=== PATIENT | female | born 1965 | race Caucasian/White ===

== ENCOUNTER → 2018-03-21 11:41 | Outpatient (CLI) | payer OTHER, SELFPAY ==
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
== END ==
PROVIDERS: PCP Internal Medicine; Visit Provider Internal Medicine
DX: M25.562 Pain in left knee (principal); W19.XXXA Unspecified fall, initial encounter
CPT/HCPCS: 73562

== ENCOUNTER → 2018-04-04 16:08 | Outpatient (CLI) | payer OTHER, SELFPAY ==
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
== END ==
PROVIDERS: PCP Internal Medicine; Visit Provider Internal Medicine
DX: R11.2 Nausea with vomiting, unspecified (principal); R51 Headache; R42 Dizziness and giddiness
CPT/HCPCS: 70450

== ENCOUNTER → 2019-03-26 09:48 | Outpatient (CLI) | payer OTHER, SELFPAY ==
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
--- NOTE | 2019-03-26 09:52 | XR_ITS ---
XR foot wt bearing RT 3V HISTORY: ITS.REASON: pain ORDERING PHYSICIAN: Juliana Vergara DPM PATIENT AGE: 54 years COMPARISON: None FINDINGS: No fracture or dislocation. No lytic or blastic change. There is normal mineralization.. The joint spaces are well-preserved. No significant degenerative/arthritic changes. No erosive changes evident. IMPRESSION: Negative, no acute finding
== END ==
PROVIDERS: PCP Internal Medicine; Visit Provider Podiatrist
DX: M79.672 Pain in left foot (principal); M79.671 Pain in right foot; M67.471 Ganglion, right ankle and foot
CPT/HCPCS: 73630; 87070; 87205

== ENCOUNTER → 2019-05-04 14:45 | Outpatient (CLI) | payer OTHER, SELFPAY ==
[2019-05-04 15:04] LABS: Basophils % 0.2 % (0.1-2.0); Eosinophils % 0.1 % (0.1-12.0); Hematocrit 45.8 % (37.0-47.0); Hemoglobin 14.6 g/dL (12.2-16.2); Lymphocytes # 1.6 K/mm3 (0.7-4.5); Lymphocytes % 12.1 % (10-50); Mean Corpuscular HGB Conc 31.8 g/dL (31.8-35.4); Mean Corpuscular Hemoglobin 27.4 pg (27.0-31.2); Mean Corpuscular Volume 86.3 fl (81-99); Mean Platelet Volume 7.7 fl (7.4-10.4); Monocytes # 0.5 K/mm3 (0.1-1.0); Monocytes % 4.1 % (1.7-9.3); Neutrophils # 10.9 K/mm3 (1.8-7.8); Neutrophils % 83.6 % (37.0-80.0); Platelet Count 345 K/mm3 (142-424); Red Cell Distribution Width 14.3 % (11.5-17.5); White Blood Count 13.1 K/mm3 (4.8-10.8)
[2019-05-04 15:06] LABS: Anion Gap 16.4 mEq/L (5-15); Blood Urea Nitrogen 17 mg/dL (7-18); Calcium 9.6 mg/dL (8.5-10.1); Carbon Dioxide 26 mmol/L (21.0-32.0); Chloride 102 mmol/L (98-107); Creatinine,Serum 1.16 mg/dL (0.55-1.02); Estimated Glomerular Filt Rate 48 ml/min (>60); GFR (African American) 58 ML/MIN (>60); Glucose 127 mg/dL (74-106); Potassium 3.4 mmoL/L (3.5-5.1); Sodium 141 mmol/L (136-145)
== END ==
PROVIDERS: Visit Provider Internal Medicine
DX: R19.7 Diarrhea, unspecified (principal); R11.2 Nausea with vomiting, unspecified
CPT/HCPCS: 36415; 80048; 85025

== ENCOUNTER 2019-06-22 15:11 | Outpatient (CLI) | payer OTHER, SELFPAY ==
[2019-06-22 15:22] VITALS: BMI 29.3
[2019-06-22 15:50] VITALS: BP 118/75; PULSE 85; RESP 18; O2SAT 97
[2019-06-22 15:59] LABS: Basophils % 0.2 % (0.1-2.0); Eosinophils # 0.1 K/mm3 (0.0-0.4); Eosinophils % 0.9 % (0.1-12.0); Hematocrit 45.2 % (37.0-47.0); Hemoglobin 14.9 g/dL (12.2-16.2); Lymphocytes # 1.5 K/mm3 (0.7-4.5); Lymphocytes % 12.3 % (10-50); Mean Corpuscular HGB Conc 32.9 g/dL (31.8-35.4); Mean Corpuscular Hemoglobin 27.9 pg (27.0-31.2); Mean Corpuscular Volume 84.7 fl (81-99); Mean Platelet Volume 7.7 fl (7.4-10.4); Monocytes # 0.7 K/mm3 (0.1-1.0); Monocytes % 5.7 % (1.7-9.3); Neutrophils # 9.5 K/mm3 (1.8-7.8); Neutrophils % 80.9 % (37.0-80.0); Platelet Count 280 K/mm3 (142-424); Red Blood Count 5.34 M/mm3 (4.20-5.40); White Blood Count 11.8 K/mm3 (4.8-10.8)
[2019-06-22 16:13] LABS: Alanine Aminotransferase 54 U/L (12-78); Albumin Level 3.6 gm/dL (3.4-5.0); Albumin/Globulin Ratio 0.8 (1.1-1.8); Alkaline Phosphatase 99 U/L (46-116); Anion Gap 17.4 mEq/L (5-15); Aspartate Amino Transferase 30 U/L (15-37); Bilirubin,Total 0.5 mg/dL (0.2-1.0); Blood Urea Nitrogen 13 mg/dL (7-18); Calcium 9.8 mg/dL (8.5-10.1); Carbon Dioxide 23 mmol/L (21.0-32.0); Chloride 103 mmol/L (98-107); Creatinine Clearance Estimated 66 mL/min (50-200); Creatinine,Serum 1.17 mg/dL (0.55-1.02); Estimated Glomerular Filt Rate 48 ml/min (>60); GFR (African American) 58 ML/MIN (>60); Globulin 4.6 gm/dl (1.3-3.2); Glucose 114 mg/dL (74-106); Potassium 3.4 mmoL/L (3.5-5.1); Sodium 140 mmol/L (136-145); Total Protein,Serum 8.2 gm/dL (6.4-8.2)
[2019-06-22 16:20] VITALS: BP 125/76; PULSE 87; RESP 18
[2019-06-22 16:50] VITALS: BP 111/69; PULSE 81; RESP 18
[2019-06-22 20:00] VITALS: BP 101/67; PULSE 73; RESP 20; TEMP 36.8; O2SAT 97
== END 2019-06-22 20:05 | disposition home or self-care (01) ==
PROVIDERS: PCP Internal Medicine; Visit Provider Internal Medicine
DX: K52.9 Noninfective gastroenteritis and colitis, unspecified (principal); E86.0 Dehydration; G43.909 Migraine, unspecified, not intractable, without status migrainosus
CPT/HCPCS: 80053; 85025; 96360; 96361; 96365; 96367; 96374; 96375; J2405

== ENCOUNTER 2020-03-25 11:21 | Outpatient (CLI) | payer OTHER, SELFPAY ==
[2020-03-25 11:21] VITALS: BMI 30.2
[2020-03-25 11:33] LABS: Basophils % 0.2 % (0.1-2.0); Eosinophils # 0.2 K/mm3 (0.0-0.4); Eosinophils % 2.5 % (0.1-12.0); Hematocrit 37.1 % (37.0-47.0); Hemoglobin 11.6 g/dL (12.2-16.2); Lymphocytes # 1.8 K/mm3 (0.7-4.5); Lymphocytes % 23.4 % (10-50); Mean Corpuscular HGB Conc 31.3 g/dL (31.8-35.4); Mean Corpuscular Hemoglobin 26.7 pg (27.0-31.2); Mean Corpuscular Volume 85.1 fl (81-99); Mean Platelet Volume 7.1 fl (7.4-10.4); Monocytes # 0.5 K/mm3 (0.1-1.0); Monocytes % 6.1 % (1.7-9.3); Neutrophils # 5.3 K/mm3 (1.8-7.8); Neutrophils % 67.8 % (37.0-80.0); Platelet Count 268 K/mm3 (142-424); Red Blood Count 4.36 M/mm3 (4.20-5.40); Red Cell Distribution Width 14.9 % (11.5-17.5); White Blood Count 7.8 K/mm3 (4.8-10.8)
[2020-03-25 12:30] VITALS: BP 102/58; PULSE 68; RESP 20; TEMP 36.9; O2SAT 95
[2020-03-25 13:04] LABS: Alanine Aminotransferase 16 U/L (12-78); Albumin Level 4.1 g/dl (3.5-5.0); Albumin/Globulin Ratio 1.6 (1.1-1.8); Alkaline Phosphatase 88 U/L (38-126); Anion Gap 9.6 mEq/L (5-15); Aspartate Amino Transferase 28 U/L (14-36); Bilirubin,Total 0.1 mg/dl (0.2-1.3); Blood Urea Nitrogen 13 mg/dl (7-17); Carbon Dioxide 26 mmol/L (22.0-30.0); Chloride 106 mmol/L (98-107); Cholesterol 148 mg/dl (140-200); Creatinine Clearance Estimated 104 mL/min (50-200); Estimated Glomerular Filt Rate 74 ml/min (>60); GFR (African American) 89 ML/MIN (>60); Globulin 2.6 g/dL (1.3-3.2); Glucose 101 mg/dl (74-100); HDL Cholesterol 73 mg/dl (40-60); Potassium 3.6 mmoL/L (3.5-5.1); Sodium 138 mmol/L (136-145); Total Protein,Serum 6.7 g/dl (6.3-8.2); Triglycerides 98 mg/dl (30-150); VLDL Cholesterol 20 mg/dL (0-40)
[2020-03-25 13:14] LABS: Direct LDL Cholesterol 74.33 mg/dL (100-129)
[2020-03-25 13:35] VITALS: BP 120/62; PULSE 68; RESP 20; TEMP 36.9; O2SAT 95
[2020-03-25 13:36] LABS: Thyroid Stimulating Hormone 0.18 uIU/mL (0.465-4.68)
[2020-03-25 14:00] VITALS: BP 102/74; PULSE 68; RESP 20; TEMP 36.9; O2SAT 95
== END 2020-03-25 14:15 | disposition home or self-care (01) ==
LOC: LAB 11:22 → INF 11:24
PROVIDERS: PCP Internal Medicine; Visit Provider Internal Medicine
DX: E86.0 Dehydration (principal); R42 Dizziness and giddiness; E78.5 Hyperlipidemia, unspecified; E03.9 Hypothyroidism, unspecified; I95.1 Orthostatic hypotension
CPT/HCPCS: 80053; 80061; 84443; 85025; 96360; 96361; 96375; J2405

== ENCOUNTER 2020-04-23 10:08 | Emergency (ER) | payer OTHER, SELFPAY ==
[2020-04-23 10:16] VITALS: BP 122/82; PULSE 81; RESP 18; TEMP 37; O2SAT 98
[2020-04-23 10:23] VITALS: BMI 32.4
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
--- NOTE | 2020-04-23 10:32 | PC.NURSE ---
ER viewed pt most recent labs from March, stated pt okay to go on to CT with IV contrast based on recent labs. Rad aware and taking pt to radiology at this time
[2020-04-23 10:43] LABS: Basophils % 0.2 % (0.1-2.0); Eosinophils # 0.1 K/mm3 (0.0-0.4); Eosinophils % 1.1 % (0.1-12.0); Hematocrit 39.1 % (37.0-47.0); Hemoglobin 13.1 g/dL (12.2-16.2); Lymphocytes # 1.2 K/mm3 (0.7-4.5); Lymphocytes % 10.5 % (10-50); Mean Corpuscular HGB Conc 33.4 g/dL (31.8-35.4); Mean Corpuscular Hemoglobin 29.1 pg (27.0-31.2); Mean Platelet Volume 7.5 fl (7.4-10.4); Monocytes # 0.4 K/mm3 (0.1-1.0); Monocytes % 3.9 % (1.7-9.3); Neutrophils # 9.4 K/mm3 (1.8-7.8); Neutrophils % 84.3 % (37.0-80.0); Platelet Count 214 K/mm3 (142-424); Red Cell Distribution Width 15.3 % (11.5-17.5); White Blood Count 11.1 K/mm3 (4.8-10.8)
[2020-04-23 10:53] LABS: Chloride 108 mmol/L (98-107); Sodium 141 mmol/L (136-145)
[2020-04-23 10:56] LABS: Blood Urea Nitrogen 17 mg/dl (7-17); Creatinine Clearance Estimated 108 mL/min (50-200); Estimated Glomerular Filt Rate 74 ml/min (>60); GFR (African American) 89 ML/MIN (>60)
[2020-04-23 10:57] LABS: Calcium 9.2 mg/dl (8.4-10.2); Carbon Dioxide 26 mmol/L (22.0-30.0); Glucose 114 mg/dl (74-100); Lipase 46 U/L (23-300)
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
[2020-04-23 11:11] VITALS: BP 111/69; PULSE 79; RESP 18; O2SAT 99
[2020-04-23 11:30] VITALS: BP 100/63; PULSE 84; RESP 20; O2SAT 99
[2020-04-23 12:00] VITALS: BP 114/67; PULSE 85; RESP 20; O2SAT 98
[2020-04-23 13:22] VITALS: BP 124/80; PULSE 69; RESP 18; TEMP 37; O2SAT 98
== END 2020-04-23 13:23 | disposition home or self-care (01) ==
PROVIDERS: Emergency Provider Emergency Medicine; PCP Internal Medicine
DX: S32.019A Unspecified fracture of first lumbar vertebra, initial encounter for closed fracture (principal); S06.0X9A Concussion with loss of consciousness of unspecified duration, initial encounter; S16.1XXA Strain of muscle, fascia and tendon at neck level, initial encounter; S20.219A Contusion of unspecified front wall of thorax, initial encounter; S30.1XXA Contusion of abdominal wall, initial encounter; V48.0XXA Car driver injured in noncollision transport accident in nontraffic accident, initial encounter; Y92.488 Other paved roadways as the place of occurrence of the external cause; K21.9 Gastro-esophageal reflux disease without esophagitis; E78.5 Hyperlipidemia, unspecified; I10 Essential (primary) hypertension; G43.709 Chronic migraine without aura, not intractable, without status migrainosus; F33.1 Major depressive disorder, recurrent, moderate; Z79.899 Other long term (current) drug therapy; Z88.0 Allergy status to penicillin; Z88.8 Allergy status to other drugs, medicaments and biological substances
CPT/HCPCS: 70450; 71045; 71260; 72125; 72131; 72170; 74177; 80048; 83690; 85025; 96374; 96375; 99282; J2405; Q9967

== ENCOUNTER → 2020-04-28 10:58 | Outpatient (POV) | payer OTHER, SELFPAY ==
[2020-04-28 11:17] VITALS: BP 108/66; PULSE 69; RESP 18; O2SAT 98; BMI 32.3
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
== END ==
PROVIDERS: PCP Internal Medicine; Visit Provider Clinical Nurse Specialist Family Health
DX: S32.009A Unspecified fracture of unspecified lumbar vertebra, initial encounter for closed fracture (principal)
CPT/HCPCS: 99202

== ENCOUNTER 2020-05-02 14:15 | Day surgery (SDC) | payer OTHER, SELFPAY ==
[2020-05-02 15:08] VITALS: BP 118/68; PULSE 83; RESP 20; TEMP 36.4; O2SAT 98; BMI 32.3
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
[2020-05-02 15:30] VITALS: BP 120/72; PULSE 68; RESP 20; O2SAT 100
[2020-05-02 15:32] VITALS: BP 145/89; BP 152/89; PULSE 85; PULSE 89; RESP 18; O2SAT 98; O2SAT 99
== END 2020-05-02 15:30 | disposition home or self-care (01) ==
LOC: SC.PAINP 14:17
PROVIDERS: PCP Internal Medicine; Visit Provider Anesthesiology
DX: M51.16 Intervertebral disc disorders with radiculopathy, lumbar region (principal); S32.009A Unspecified fracture of unspecified lumbar vertebra, initial encounter for closed fracture; I10 Essential (primary) hypertension; K21.9 Gastro-esophageal reflux disease without esophagitis; E03.9 Hypothyroidism, unspecified; Z90.89 Acquired absence of other organs; Z90.49 Acquired absence of other specified parts of digestive tract; G43.909 Migraine, unspecified, not intractable, without status migrainosus; Z88.0 Allergy status to penicillin; Z88.8 Allergy status to other drugs, medicaments and biological substances; Z79.899 Other long term (current) drug therapy
CPT/HCPCS: 62323; J1040; Q9966

== ENCOUNTER → 2020-05-26 11:30 | Outpatient (POV) | payer OTHER, SELFPAY ==
[2020-05-26 12:52] VITALS: BP 133/85; PULSE 75; RESP 18; O2SAT 98; BMI 29.0
--- NOTE | 2020-05-26 14:43 | HMH.PAINSOAP ---
[facility] Pain Management SOAP Note Subjective:: Patient is a 55-year-old white female who presents today for follow-up. She has been treated for low back pain with lumbar radiculopathy symptoms as well as compression fractures at her lumbar spine. Patient recently underwent an L1-L2 lumbar epidural steroid injection. She says that she got 2 weeks of relief after the injection up to 90%. She does rate her pain a 6 out of 10 today. She would like to proceed with a repeat injection to see if she gets further relief. Patient says that most of her pain is in her mid to low back and does not radiate into her legs. She does say wearing a brace does give her support and relief in her back area. She has tried and failed physical therapy. She is also continues with a home stretching program and anti-inflammatories. Review of Systems General: No recent weight changes, no fever, no sleep disturbances Respiratory: No cough, no shortness of air, no recurring pulmonary infections Cardiovascular/peripheral vascular: No chest pain, no palpitations, no edema, no shortness of breath Gastrointestinal: No new onset incontinence, normal bowel movements reported Genitourinary: No new onset incontinence Musculoskeletal: Mid to low back pain Psychiatric: Normal mood/affect Neurological: [Denies weakness in extremities], [denies balance issues] Objective:: Physical exam General: Alert and oriented x3, no acute distress, pleasant and cooperative, [on room air] Lungs: Respirations even and unlabored, symmetrical chest expansion Eyes: PERRL Musculoskeletal: Flexion and extension of thoracic and lumbar spine somewhat guarded secondary to pain, deep tendon reflexes normal, strength in upper and lower extremities [5/5], [abnormal gait noted] Neurological: Speech clear, 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 She is not on any anticoagulation therapy. We will see her back in the clinic after her injection to reassess her symptoms. She and I did discuss probable series of injections if she does get relief after the next injection so that she can get longer-term relief. She will continue with anti-inflammatories and a home stretching program. Patient has been instructed to contact clinic if she has any concerns before next appointment. The patient and I specifically discussed risk factors for COVID19. These risks include, but are not limited to age greater than 60, heart or lung disease, diabetes, immunosuppression, and travel. We also discussed NSAIDs may worsen COVID19 infection or symptoms. Patient should not use NSAIDs to treat COVID19 signs or symptoms. Patient was also informed that any type of corticosteroid of any form (oral or injection) will decrease the patient's immune system response and may increase the likelihood of COVID19 infection and symptoms[address] Dr. Claros has reviewed this note and agrees with this plan of care. This note was dictated using voice recognition software and make contain errors or omissions. [facility] History I have reviewed the patient's past medical history: Yes Medical History: Reports:: Depression, Gastroesophageal Reflux Disease(GERD), Hyperlipidemia, Hypertension, Migraine Denies:: Cancer, Chronic Obstructive Pulmonary Disease (COPD), Diabetes Mellitus Type 1, Diabetes Mellitus Type 2, MRSA, Seizures *Have you ever received a pneumonia vaccine?: Yes *Have you received a flu vaccine this season?: Yes Other Medical History: Reports: Arthritis, Hypothyroidism, Sinus Problems, Thyroid Disease Laterality Cases: Bilateral: Tonsillectomy Other Surgeries: Yes: Appendectomy, , Tubal Ligation Amputation: No Fractures: Yes (Left Arm ) - *Social History Smoking Status: Never smoker Alcohol Intake: never Alcohol Intake Freq
== END ==
PROVIDERS: PCP Internal Medicine; Visit Provider Clinical Nurse Specialist Family Health
DX: M51.16 Intervertebral disc disorders with radiculopathy, lumbar region (principal); S32.009A Unspecified fracture of unspecified lumbar vertebra, initial encounter for closed fracture
CPT/HCPCS: 99212

== ENCOUNTER 2020-06-06 11:21 | Day surgery (SDC) | payer OTHER, SELFPAY ==
[2020-06-06 11:32] VITALS: BP 116/75; PULSE 61; RESP 18; TEMP 36.2; O2SAT 99; BMI 29.9
[2020-06-06 11:49] VITALS: BP 129/78; PULSE 72; RESP 18; TEMP 36.6; O2SAT 98
[2020-06-06 11:52] VITALS: BP 130/85; PULSE 74; RESP 18; O2SAT 98
--- NOTE | 2020-06-06 11:56 | HMH.PMPROC ---
- Procedure Date: 06/06/20 Time: 11:56 Anesthesiologist:: Rohan Claros MD Complications:: None Pre-procedure Diagnosis:: Degenerative disc disease of lumbar spine with lumbar radiculopathy symptoms and previous compression fractures of the lumbar spine Post-procedure Diagnosis:: Same Indications for Procedure:: The patient is a pleasant 55-year-old white female who we are treating for low back pain with previous compression fractures and lumbar radiculopathy symptoms. She did very well with her last lumbar epidural steroid injection at L1-L2. Wearing a brace does help. We will do a repeat lumbar pleural steroid injection today to help with her pain symptoms. She previously was 90% better after last lumbar epidural steroid injection for a few weeks. Procedure Details:: Lumbar epidural steroid injection under fluoroscopy Informed consent was obtained and the risk and benefits of the procedure was explained to the patient. The patient was taken to the procedure room. The patient was placed prone on the procedure table. The patient was prepped and draped in sterile fashion. C-arm fluoroscopy was used to view the lumbar spine. Skin and subcutaneous tissues were anesthetized using lidocaine. I placed an 18-gauge epidural needle and advanced into the L1-L2 interspace using fluoroscopic guidance and [id number] to air. After confirmation of needle placement in the epidural space with dye I injected 2 mL of lidocaine 1.5% with Depo-Medrol 80 mg. Patient tolerated the procedure well with no complications. Plan and Disposition:: We will follow-up with her in 2 weeks. Will reevaluate symptoms at that time.
[2020-06-06 11:59] VITALS: BP 128/74; PULSE 64; RESP 18; O2SAT 99
== END 2020-06-06 12:00 | disposition home or self-care (01) ==
LOC: SC.PAINP 11:22
PROVIDERS: PCP Internal Medicine; Visit Provider Anesthesiology
DX: M51.16 Intervertebral disc disorders with radiculopathy, lumbar region (principal); S32.009A Unspecified fracture of unspecified lumbar vertebra, initial encounter for closed fracture; I10 Essential (primary) hypertension; V89.2XXA Person injured in unspecified motor-vehicle accident, traffic, initial encounter; G43.909 Migraine, unspecified, not intractable, without status migrainosus; E78.5 Hyperlipidemia, unspecified; E07.9 Disorder of thyroid, unspecified; Z90.89 Acquired absence of other organs; Z90.49 Acquired absence of other specified parts of digestive tract; Z88.0 Allergy status to penicillin; Z88.8 Allergy status to other drugs, medicaments and biological substances; Z79.899 Other long term (current) drug therapy
CPT/HCPCS: 62323; J1040; Q9966

== ENCOUNTER 2023-12-28 22:24 | Outpatient (CLI) | payer MEDICARE, SELFPAY ==
[2023-12-28 18:52] LABS: Basophils % 0.2 % (0.1-2.0); Eosinophils # 0.1 K/mm3 (0.0-0.4); Eosinophils % 1.2 % (0.1-12.0); Lymphocytes # 1.6 K/mm3 (0.7-4.5); Lymphocytes % 15.5 % (10-50); Mean Corpuscular HGB Conc 30.9 g/dL (31.8-35.4); Mean Corpuscular Hemoglobin 27.5 pg (27.0-31.2); Mean Corpuscular Volume 89.2 fl (81-99); Mean Platelet Volume 9.4 fl (7.4-10.4); Monocytes # 0.6 K/mm3 (0.1-1.0); Monocytes % 5.4 % (1.7-9.3); Neutrophils # 7.9 K/mm3 (1.8-7.8); Neutrophils % 77.7 % (37.0-80.0); Platelet Count 280 K/mm3 (142-424); Red Blood Count 4.71 M/mm3 (4.20-5.40); Red Cell Distribution Width 16.9 % (11.5-17.5); White Blood Count 10.2 K/mm3 (4.8-10.8)
[2023-12-28 19:05] LABS: Chloride 105 mmol/L (98-107); Sodium 139 mmol/L (136-145)
[2023-12-28 19:08] LABS: Alanine Aminotransferase 26 U/L (12-78); Albumin Level 4.4 g/dl (3.5-5.0); Alkaline Phosphatase 108 U/L (38-126); Aspartate Amino Transferase 35 U/L (14-36); Bilirubin,Total 0.5 mg/dl (0.2-1.3); Blood Urea Nitrogen 18 mg/dl (7-17); Carbon Dioxide 27 mmol/L (22.0-30.0); Cholesterol 258 mg/dl (140-200); Estimated Glomerular Filt Rate 51 ml/min (>60); GFR (African American) 61 ML/MIN (>60); Triglycerides 159 mg/dl (30-150); VLDL Cholesterol 32 mg/dL (0-40)
[2023-12-28 19:09] LABS: Albumin/Globulin Ratio 1.4 (1.1-1.8); Calcium 9.1 mg/dl (8.4-10.2); Chol/HDL Ratio 5.9 (1-3.5); Globulin 3.1 g/dL (1.3-3.2); Glucose 132 mg/dl (74-100); HDL Cholesterol 44 mg/dl (40-60); Total Protein,Serum 7.5 g/dl (6.3-8.2)
[2023-12-28 19:20] LABS: Direct LDL Cholesterol 156.35 mg/dL (100-129)
[2023-12-28 19:31] LABS: 25-OH Vitamin D, Total < 12.8 ng/mL (30-100)
[2023-12-29 15:30] LABS: Hemoglobin A1C 6.6 % (4.0-6.0)
== END 2023-12-28 23:59 ==
LOC: LAB.DROPOF 22:25
PROVIDERS: PCP Physician Assistant; Visit Provider Physician Assistant
DX: E55.9 Vitamin D deficiency, unspecified; R73.09 Other abnormal glucose; E03.8 Other specified hypothyroidism; Z79.899 Other long term (current) drug therapy
CPT/HCPCS: 80053; 80061; 82306; 83036; 84443; 85025

== ENCOUNTER 2024-06-09 10:19 | Emergency (ER) | payer MEDICARE, SELFPAY ==
[2024-06-09 11:00] VITALS: BP 130/64; PULSE 71; RESP 20; TEMP 36.6; O2SAT 97; BMI 33.9
--- NOTE | 2024-06-09 11:39 | EXP.UTC ---
Discharge Plan Disposition Patient Disposition: Home, Self-Care Condition: Good Prescriptions Prescriptions: New benzonatate 100 mg capsule 100 mg PO TID PRN (Reason: cough) Qty: 30 0RF azithromycin [Zithromax Z-Bennett] 250 mg tablet See Rx Instructions .ROUTE .COMPLEX 5 Days Qty: 6 0RF Rx Instructions: For 250 mg dose pack: take 500 mg today (day 1), then 250 mg for 4 days (days 2-5) methylprednisolone [Medrol (Benentt)] 4 mg tablets,dose pack See Rx Instructions .Route .COMPLEX 6 Days Qty: 21 0RF Rx Instructions: taper pack; No Action baclofen 10 mg tablet 10 mg PO BID PRN (Reason: muscle spasm) Qty: 60 2RF Vraylar 1.5 mg capsule 1.5 mg PO DAILY Qty: 30 2RF mirtazapine [Remeron] 30 mg tablet 30 mg PO HS Qty: 30 2RF atorvastatin 10 mg tablet 10 mg PO HS Qty: 30 1RF cholecalciferol (vitamin D3) 1,250 mcg (50,000 unit) capsule 1,250 mcg PO WEEKLY Qty: 12 2RF levothyroxine [Synthroid] 50 mcg tablet 50 mcg PO DAILY Qty: 14 0RF Rx Instructions: 50 mcg's for 2 weeks and then 100 mcg's after that levothyroxine [Synthroid] 100 mcg tablet 100 mcg PO DAILY Qty: 90 0RF Rx Instructions: 50 mcg's for 14 days and 100 mcg's after that Ubrelvy 100 mg tablet 100 mg PO ONCE PRN (Reason: migraine headache) Qty: 16 2RF tramadol 50 MG tablet 50 mg PO BID Referrals Follow up/Referrals: Sobeida Richmond PA [Primary Care Provider] - See instructions Activity Restrictions/Add. Instructions Additional Instructions/Restrictions: *Monitor Temp, Over the counter Motrin or Tylenol as directed/as needed Tylenol every 4 hours and Motrin every 6 hours (as long as your family doctor has told you that you can take it) for fever or pain. and straight to ER if unable to lower temp less than 101.0 after medication given *Warm salt water gargles may help to soothe the throat *Throat Lozenges? *Warm fluids like tea with honey may help to soothe the throat? *Sleep elevated *Humidifier/Vaporizer *Flonase 2 sprays in each nostril daily but be aware that it may take 2-3 days before you notice improvement *Bromfed may cause drowsiness. Know how it effects you (your child) before driving, caring for small child, or sending your child to school. Not other antihistamines/allergy medications while taking bromfed Your throat swab was sent for culture. Those results are typically sent to your primary care. Be sure to follow up in 2-3 days with your family doctor/primary care physician if no improvement so they can review those result and treat if necessary. If you don?t have a primary care doctor, I recommend you get one but in the mean time, you will have to return to a walk in clinic Follow up IMMEDIATELY for new or worsening symptoms or no Noticeable improvement over the next 48-72 hours. 911 for difficulty breathing or swallowing Clinical Impressions Clinical Impression: Sinusitis Qualifiers: Sinusitis location: unspecified location Chronicity: unspecified Qualified Code(s): J32.9 - Chronic sinusitis, unspecified Instructions Patient Instructions: Sinusitis, DI for Sinusitis Print Language Print Language: Georgian Discharge ED Provider: Lakisha Marshall [facility] General Stated complaint: sinus drainage, vomiting, chills Mode of Arrival: Ambulatory Source of Information: Patient Limitations: No Limitations Time Seen by Provider: 06/09/24 11:40 Description of Symptoms (Recalled from Triage Doc. by RN): PATIENT C/O SINUS DRAINAGE, SORE THROAT, VOMITING, HEADACHE AND COUGH SINCE TUESDAY NIGHT HEENT Symptoms (Recalled from RN notes): Yes Resp Symptoms (Recalled from RN notes): Yes Skin Symptoms (Recalled from RN notes): No MS Symptoms (Recalled from RN notes): No Functional Status (Recalled from RN notes): WNL History of Present Illness Provider Complaint: Patient state that she has been having sinus pain and pressure, sore throat, cough upset stomach and sinus pressure States that today it wasnt any better so she came in to get checked worried that she may have a sinus infection or something Related Data Home Medications ?Medication ?Instructions ?Recorded ?Confirmed tramadol 50 mg tablet 50 mg PO BID Pain 02/10/19 12/28/23 Previous Rx's ?Medication ?Instructions ?Recorded baclofen 10 mg tablet 10 mg PO BID PRN muscle spasm #60 12/28/23 tabs cariprazine 1.5 mg capsule 1.5 mg PO DAILY #30 caps 12/28/23 (Vraylar) mirtazapine 30 mg tablet (Remeron) 30 mg PO HS #30 tabs 12/28/23 atorvastatin 10 mg tablet 10 mg PO HS Cholesterol #30 tabs 01/04/24 cholecalciferol (vitamin D3) 1,250 1,250 mcg PO WEEKLY vitamin d 01/04/24 mcg (50,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 #12 caps levothyroxine 100 mcg tablet 100 mcg PO DAILY thyroid #90 tabs 01/04/24 (Synthroid) levothyroxine 50 mcg tablet 50 mcg PO DAILY thyroid #14 tabs 01/04/24 (Synthroid) ubrogepant 100 mg tablet (Ubrelvy) 100 mg PO ONCE PRN migraine 01/10/24 headache #16 tabs azithromycin 250 mg tablet See Rx Instructions PO .COMPLEX 5 06/09/24 (Zithromax Z-Bennett) days #6 tabs benzonatate 100 mg capsule 100 mg PO TID PRN cough #30 caps 06/09/24 methylprednisolone 4 mg tablets in See Rx Instructions .Route 06/09/24 a dose pack (Medrol (Bennett)) .COMPLEX 6 days #21 tabs Allergies Allergy/AdvReac Type Severity Reaction Status Date / Time sumatriptan [From IMITREX] Allergy Severe S-DROP IN Verified 12/28/23 09:26 B/P Penicillins [PENICILLINS] Allergy Intermediate I-HIVES Verified 12/28/23 09:26 topiramate [From Topamax] Allergy Intermediate S-DROP IN Verified 12/28/23 09:26 B/P Worker's Comp Is this a Worker's Comp case?: No [facility] Disclaimer: The information contained in this section may have been updated after the patient was seen, as this information can be updated by other users. Medical History (Updated 06/09/24 @ 11:47 by Lakisha Marshall APRN) Depression Anxiety Hyperlipidemia Hypertension Hypothyroidism Concussion Fracture of lumbar spine Surgical History delivery delivered H/O thyroidectomy History of facial surgery Social History Smoking Status: Never smoker alcohol intake: never current occupational status: retired Travel in the last 8 weeks: None household members: spouse housing: house caffeine: Yes ROS Obtained: Yes All systems reviewed & no additional complaints except as documented and Yes Systems reviewed as appropriate & no additional complaints except as documented Constitutional Constitutional: Reports system reviewed and no additional complaints, except as documented, Reports as per HPI and Reports headache(s) ENT Ears, Nose, Mouth, and Throat: Reports system reviewed and no additional complaints, except as documented, Reports as per HPI, Reports headache(s), Reports sinus pain, Reports sinus pressure and Reports sore throat Cardiovascular Cardiovascular: Reports system reviewed and no additional complaints, except as documented and Reports as per HPI Respiratory Respiratory: Reports system reviewed and no additional complaints, except as documented, Reports as per HPI and Reports cough Gastrointestinal Gastrointestingal: Reports system reviewed and no additional complaints, except as documented and as per HPI Neurologic Neurologic: Reports headache(s) Physical Exam General General appearance: alert and in no apparent distress ENT ENT exam: Present mucous membranes moist Expanded ENT Exam Nose exam: Present sinus tenderness (reports tenderness with palpation) Throat exam: Present other (PND noted) Respiratory Respiratory exam: Present normal lung sounds bilaterally; Absent respiratory distress or wheezes Cardiovascular Cardiovascular exam: Present regular rate, normal rhythm and normal heart sounds Abdominal Exam Abdominal exam: Present soft and normal bowel sounds; Absent distention or tenderness Neurological Exam Neurological exam: Present alert, oriented X3 and normal gait Medical Decision Making Jose Ramon Inquiry Pt receiving controlled substance: No Jose Ramon was queried for this patient: No Vital Signs: 06/09/24 11:00 Temperature 97.9 F Temperature Source Oral Pulse Rate [Left Brachial] 71 Respiratory Rate 20 Blood Pressure [Left Arm] 130/64 Blood Pressure Mean [Left Arm] 86 Blood Pressure Source [Left Arm] Automatic Cuff Blood Pressure Position [Left Arm] Sitting 02 Sat by Pulse Oximetry 97 Oxygen Delivery Method Room Air
[2024-06-09 11:53] VITALS: BP 130/64; PULSE 71; RESP 20; TEMP 36.6; O2SAT 97
== END 2024-06-09 12:01 | disposition home or self-care (01) ==
PROVIDERS: Emergency Provider Nurse Practitioner; PCP Physician Assistant
DX: J01.90 Acute sinusitis, unspecified (principal); R07.0 Pain in throat; R05.9 Cough, unspecified; R11.2 Nausea with vomiting, unspecified
CPT/HCPCS: 99204; 99212; G0463

== ENCOUNTER 2024-10-20 10:46 | Emergency (ER) | payer MEDICARE, SELFPAY ==
[2024-10-20] VITALS (11 sets, daily range): BP systolic 121–156; BP diastolic 60–85; PULSE 58–120; RESP 15–21; TEMP 36.7–36.8; O2SAT 95–98; BMI 37.5
--- NOTE | 2024-10-20 10:51 | XR_ITS ---
PROCEDURE INFORMATION: Exam: XR Right Hand Exam date and time: 10/20/2024 10:50 AM Age: 59 years old Clinical indication: Injury or trauma; Fall; Blunt trauma (contusions or hematomas); Hand; Right TECHNIQUE: Imaging protocol: Radiologic exam of the right hand. Views: 1 or 2 views. COMPARISON: No relevant prior studies available. FINDINGS: Bones/joints: Comminuted intra-articular fracture of the distal radius has volar angular displacement of the distal fragments. Ulna styloid process is fractured and in anatomic alignment. No other fractures, dislocations or focal lesions. Soft tissues: No soft tissue gas, radiopaque foreign bodies, or masses. IMPRESSION: 1. A compression acute, comminuted, intra-articular fracture in the distal right radius has volar angular displacement of the distal fragment. 2. Acute fracture of the right ulna styloid process is in near anatomic.
--- NOTE | 2024-10-20 10:51 | XR_ITS ---
PROCEDURE INFORMATION: Exam: XR Left Shoulder Exam date and time: 10/20/2024 10:47 AM Age: 59 years old Clinical indication: Injury or trauma; Fall; Blunt trauma (contusions or hematomas); Shoulder; Left TECHNIQUE: Imaging protocol: Radiologic exam of the left shoulder. Views: 2 or more views. COMPARISON: CT CHEST W CON 04/23/2020 10:52 AM FINDINGS: Bones/joints: Fracture of the greater tuberosity is in near anatomic alignment. No other fractures, dislocations, or focal bone lesions. Soft tissues: No soft tissue abnormalities or radiopaque foreign bodies. No soft tissue gas. IMPRESSION: Acute, nondisplaced fracture of the greater tuberosity of the left humerus.
--- NOTE | 2024-10-20 10:51 | XR_ITS ---
PROCEDURE INFORMATION: Exam: XR Right Forearm Exam date and time: 10/20/2024 10:52 AM Age: 59 years old Clinical indication: Injury or trauma; Fall; Blunt trauma (contusions or hematomas); Arm, lower; Right TECHNIQUE: Imaging protocol: Radiologic exam of the right forearm. Views: 2 views. COMPARISON: CR XR HAND RT 2V 10/20/2024 10:50 AM FINDINGS: Bones/joints: Comminuted intra-articular fracture of the distal radius has approximately 50 degrees volar angular displacement. Ulna styloid process fracture is in near anatomic alignment. No other fractures the dislocations in the right forearm. Soft tissues: No soft tissue gas, radiopaque foreign bodies, or masses. IMPRESSION: 1. Few, comminuted, intra-articular fracture of the distal right radius has approximately 50 degrees volar angular displacement. 2. Right ulna styloid process fracture is in near anatomic alignment. 3. No other right forearm fractures.
--- NOTE | 2024-10-20 11:57 | EXP.UTC ---
Discharge Plan Disposition Patient Disposition: Still a Patient Condition: Fair Prescriptions Prescriptions: No Action baclofen 10 mg tablet 10 mg PO BID PRN (Reason: muscle spasm) Qty: 60 2RF Vraylar 1.5 mg capsule 1.5 mg PO DAILY Qty: 30 2RF mirtazapine [Remeron] 30 mg tablet 30 mg PO HS Qty: 30 2RF atorvastatin 10 mg tablet 10 mg PO HS Qty: 30 1RF cholecalciferol (vitamin D3) 1,250 mcg (50,000 unit) capsule 1,250 mcg PO WEEKLY Qty: 12 2RF levothyroxine [Synthroid] 50 mcg tablet 50 mcg PO DAILY Qty: 14 0RF Rx Instructions: 50 mcg's for 2 weeks and then 100 mcg's after that levothyroxine [Synthroid] 100 mcg tablet 100 mcg PO DAILY Qty: 90 0RF Rx Instructions: 50 mcg's for 14 days and 100 mcg's after that Ubrelvy 100 mg tablet 100 mg PO ONCE PRN (Reason: migraine headache) Qty: 16 2RF benzonatate 100 mg capsule 100 mg PO TID PRN (Reason: cough) Qty: 30 0RF azithromycin [Zithromax Z-Bennett] 250 mg tablet See Rx Instructions .ROUTE .COMPLEX 5 Days Qty: 6 0RF Rx Instructions: For 250 mg dose pack: take 500 mg today (day 1), then 250 mg for 4 days (days 2-5) methylprednisolone [Medrol (Bennett)] 4 mg tablets,dose pack See Rx Instructions .Route .COMPLEX 6 Days Qty: 21 0RF Rx Instructions: taper pack; tramadol 50 MG tablet 50 mg PO BID Referrals Follow up/Referrals: Sobeida Richmond PA [Primary Care Provider] - See instructions Clinical Impressions Clinical Impression: Closed fracture of right distal radius, Fracture of distal end of right ulna, Closed left humeral fracture Print Language Print Language: Filipino Discharge ED Provider: Jesus Curtis [facility] General Stated complaint: AO , fell, inj rt wrist, left shoulder Time Seen by Provider: 10/20/24 11:57 History of Present Illness Provider Complaint: She states that she fell while in the stands at a basketball game this morning. She is having right wrist fracture and left upper arm pain. Related Data Home Medications ?Medication ?Instructions ?Recorded ?Confirmed tramadol 50 mg tablet 50 mg PO BID Pain 02/10/19 12/28/23 Previous Rx's ?Medication ?Instructions ?Recorded baclofen 10 mg tablet 10 mg PO BID PRN muscle spasm #60 12/28/23 tabs cariprazine 1.5 mg capsule 1.5 mg PO DAILY #30 caps 12/28/23 (Vraylar) mirtazapine 30 mg tablet (Remeron) 30 mg PO HS #30 tabs 12/28/23 atorvastatin 10 mg tablet 10 mg PO HS Cholesterol #30 tabs 01/04/24 cholecalciferol (vitamin D3) 1,250 1,250 mcg PO WEEKLY vitamin d 01/04/24 mcg (50,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 #12 caps levothyroxine 100 mcg tablet 100 mcg PO DAILY thyroid #90 tabs 01/04/24 (Synthroid) levothyroxine 50 mcg tablet 50 mcg PO DAILY thyroid #14 tabs 01/04/24 (Synthroid) ubrogepant 100 mg tablet (Ubrelvy) 100 mg PO ONCE PRN migraine 01/10/24 headache #16 tabs azithromycin 250 mg tablet See Rx Instructions PO .COMPLEX 5 06/09/24 (Zithromax Z-Bennett) days #6 tabs benzonatate 100 mg capsule 100 mg PO TID PRN cough #30 caps 06/09/24 methylprednisolone 4 mg tablets in See Rx Instructions .Route 06/09/24 a dose pack (Medrol (Bennett)) .COMPLEX 6 days #21 tabs Allergies Allergy/AdvReac Type Severity Reaction Status Date / Time sumatriptan (From IMITREX) Allergy Severe S-DROP IN Verified 12/28/23 09:26 B/P Penicillins (PENICILLINS) Allergy Intermediate I-HIVES Verified 12/28/23 09:26 topiramate (From Topamax) Allergy Intermediate S-DROP IN Verified 12/28/23 09:26 B/P [facility] Disclaimer: The information contained in this section may have been updated after the patient was seen, as this information can be updated by other users. Medical History (Updated 10/20/24 @ 12:52 by Jesus Curtis APRN) Depression Anxiety Hyperlipidemia Hypertension Hypothyroidism Concussion Fracture of lumbar spine Surgical History delivery delivered H/O thyroidectomy History of facial surgery Social History Smoking Status: Never smoker alcohol intake: never current occupational status: retired Travel in the last 8 weeks: None household members: spouse housing: house caffeine: Yes Have you lived/traveled outside [place] in past 30 days?: No Contact w/someone who lives/traveled outside [place] past 30 days?: No Exposure to someone with infectious disease in past 14 days?: No Do you have a fever (greater than 100.4 F or 38 C)?: No Have you tested positive for COVID-19: No Exposed to someone with COVID-19 in past 14 days?: No Do you have a sore throat?: No Do you have a cough?: No Do you have any weakness?: No Do you have any diarrhea?: No Are you experiencing any unusual bleeding?: No Do you have any muscle aches/pain?: No Do you have any abdominal pain?: No Are you experiencing loss of taste or smell?: No ROS Obtained: Yes All systems reviewed & no additional complaints except as documented Constitutional Constitutional: Denies chills and Denies fever(s) Eyes Eyes: Denies eye discharge ENT Ears, Nose, Mouth, and Throat: Denies dizziness, Denies otalgia and Denies sore throat Cardiovascular Cardiovascular: Denies chest pain Respiratory Respiratory: Denies shortness of breath, Denies chest congestion, Denies cough, Denies stridor and Denies wheezing Gastrointestinal Gastrointestingal: Denies nausea or vomiting Musculoskeletal Musculoskeletal: Reports as per HPI Integumentary/Breasts Skin/Breast: Reports as per HPI Neurologic Neurologic: Denies dizziness and Denies paresthesias Allergic/Immunologic Allergic/Immunologic: Denies wheezing Physical Exam General General appearance: alert and in no apparent distress Head Head exam: atraumatic, normocephalic and normal inspection Eye Eye exam: Present normal appearance, PERRL and EOMI ENT ENT exam: Present normal exam, normal oropharynx, mucous membranes moist, TM's normal bilaterally and normal external ear exam Neck Neck exam: Present normal inspection, full ROM and trachea midline; Absent meningismus or lymphadenopathy Chest Chest inspection: Present normal inspection and symmetric chest wall rise; Absent tenderness Respiratory Respiratory exam: Present normal lung sounds bilaterally; Absent respiratory distress Cardiovascular Cardiovascular exam: Present regular rate and normal rhythm; Absent JVD Abdominal Exam Abdominal exam: Present soft and normal bowel sounds; Absent distention, tenderness or guarding Extremities Exam Extremities exam: Present normal capillary refill; Absent calf tenderness Expanded Upper Extremity Exam Right: Shoulder exam: Present normal inspection and full ROM; Absent tenderness Arm exam: Present normal inspection and full ROM; Absent tenderness Elbow exam: Present normal inspection and full ROM; Absent tenderness Forearm/Wrist exam: Present normal inspection and full ROM; Absent tenderness Hand exam: Present normal inspection and full ROM; Absent tenderness Neuromotor exam: Normal wrist extension, thumb opposition, thumb IP flexion, thumb adduction and fingers 2-5 abduction Neurosensory exam: Normal radial nerve, ulnar nerve and median nerve Vascular exam: Normal capillary refill, radial pulse and ulnar pulse Left: Shoulder exam: Present tenderness and swelling; Absent full ROM, abrasion, laceration, ecchymosis, deformity, crepitus, dislocation, erythema or tenderness over AC joint Arm exam: Present normal inspection and full ROM; Absent tenderness Elbow exam: Present normal inspection and full ROM; Absent tenderness Forearm/Wrist exam: Present normal inspection and full ROM; Absent tenderness Hand exam: Present normal inspection and full ROM; Absent tenderness Neuromotor exam: Normal wrist extension, thumb opposition, thumb IP flexion, thumb adduction and fingers 2-5 abduction Neurosensory exam: Normal radial nerve, ulnar nerve and median nerve Vascular exam: Normal capillary refill, radial pulse and ulnar pulse Back Exam Back exam: Present normal inspection; Absent tenderness Neurological Exam Neurological exam: Present alert and oriented X3 Psychiatric Psychiatric exam: Present normal affect and normal mood Skin Skin exam: Present warm, dry, intact and normal color Lymphatic Lymphatic Findings: no adenopathy Medical Decision Making Medical Records Medical records reviewed: No I reviewed the patient's medical records. Screening: Per USPSTF and CDC recommendations, given the prevalence of disease in our region, it is our hospital?s policy to screen for HIV and viral Hepatitis for all patients aged 18 and over and those with ongoing risk factors. Jose Ramon Inquiry Pt receiving controlled substance: No Orders (Tests/Meds): ORDERS Category Date Time Status Shoulder XR left minimum 2 views [XR shoulder LT min 2V Exams 10/20/24 10:51 Taken ] Stat XR forearm RT 2V Stat Exams 10/20/24 10:51 Taken XR hand RT 2V Stat Exams 10/20/24 10:51 Taken Medical Decision Narrative: She was transferred to the er due to the right distal radius fracture needing to be reduced.
--- NOTE | 2024-10-20 12:54 | XR_ITS ---
PROCEDURE INFORMATION: Exam: XR Right Elbow Exam date and time: 10/20/2024 1:30 PM Age: 59 years old Clinical indication: Pain; Elbow; Right; Additional info: Fracture, fall, pain TECHNIQUE: Imaging protocol: Radiologic exam of the right elbow. Views: 3 or more views. COMPARISON: CR XR WRIST RT MIN 3V 10/20/2024 1:28 PM FINDINGS: Bones/joints: No fractures, dislocations, or bone lesions. No significant joint space narrowing or widening. Soft tissues: No soft tissue gas, radiopaque foreign bodies, or masses. IMPRESSION: No acute findings in the right elbow.
--- NOTE | 2024-10-20 12:54 | XR_ITS ---
PROCEDURE INFORMATION: Exam: XR Right Wrist Exam date and time: 10/20/2024 1:28 PM Age: 59 years old Clinical indication: Pain; Wrist; Right; Additional info: Fracture, fall, pain TECHNIQUE: Imaging protocol: Radiologic exam of the right wrist. Views: 3 or more views. COMPARISON: CR Forearm R 10/20/2024 10:52 AM FINDINGS: Bones/joints: Alignment of the comminuted intra-articular fracture of the distal radius has improved but continues to have approximately 40 degrees of volar angulation of the distal fragments. Fracture is slightly impacted. Ulna styloid process fracture is in anatomic alignment. No other abnormalities or interval changes. Soft tissues: No soft tissue gas, radiopaque foreign bodies, or masses. IMPRESSION: 1. Comminuted intra-articular fracture of the distal right radius is slightly impacted and continues to have approximately 40 degrees of volar angulation after fracture reduction. 2. Ulna styloid process fracture is in anatomic alignment.
--- NOTE | 2024-10-20 12:54 | XR_ITS ---
PROCEDURE INFORMATION: Exam: XR Right Wrist Exam date and time: 10/20/2024 2:27 PM Age: 59 years old Clinical indication: Injury or trauma; Other: Post reduction TECHNIQUE: Imaging protocol: Radiologic exam of the right wrist. Views: 3 or more views. COMPARISON: CR XR WRIST RT MIN 3V 10/20/2024 1:28 PM FINDINGS: Bones/joints: Comminuted, intra-articular fracture of the distal right radius is in anatomic alignment following reduction. The fracture is slightly impacted. Ulna styloid process fracture is in anatomic alignment. Soft tissues: No soft tissue gas, radiopaque foreign bodies, or masses. IMPRESSION: Acute distal radius and ulna fractures are in anatomic alignment.
--- NOTE | 2024-10-20 12:55 | ED_ITS ---
Discharge Plan Disposition Patient Disposition: Still a Patient Condition: Fair Prescriptions Prescriptions: New hydrocodone-acetaminophen 5-325 mg tablet 1 tab PO Q8H PRN (Reason: pain) Qty: 12 0RF No Action baclofen 10 mg tablet 10 mg PO BID PRN (Reason: muscle spasm) Qty: 60 2RF Vraylar 1.5 mg capsule 1.5 mg PO DAILY Qty: 30 2RF mirtazapine [Remeron] 30 mg tablet 30 mg PO HS Qty: 30 2RF atorvastatin 10 mg tablet 10 mg PO HS Qty: 30 1RF cholecalciferol (vitamin D3) 1,250 mcg (50,000 unit) capsule 1,250 mcg PO WEEKLY Qty: 12 2RF levothyroxine [Synthroid] 50 mcg tablet 50 mcg PO DAILY Qty: 14 0RF Rx Instructions: 50 mcg's for 2 weeks and then 100 mcg's after that levothyroxine [Synthroid] 100 mcg tablet 100 mcg PO DAILY Qty: 90 0RF Rx Instructions: 50 mcg's for 14 days and 100 mcg's after that Ubrelvy 100 mg tablet 100 mg PO ONCE PRN (Reason: migraine headache) Qty: 16 2RF benzonatate 100 mg capsule 100 mg PO TID PRN (Reason: cough) Qty: 30 0RF azithromycin [Zithromax Z-Bennett] 250 mg tablet See Rx Instructions .ROUTE .COMPLEX 5 Days Qty: 6 0RF Rx Instructions: For 250 mg dose pack: take 500 mg today (day 1), then 250 mg for 4 days (days 2-5) methylprednisolone [Medrol (Bennett)] 4 mg tablets,dose pack See Rx Instructions .Route .COMPLEX 6 Days Qty: 21 0RF Rx Instructions: taper pack; tramadol 50 MG tablet 50 mg PO BID Referrals Follow up/Referrals: Sobeida Richmond PA [Primary Care Provider] - See instructions Wei Peterson DO [Staff Physician] - See instructions Activity Restrictions/Add. Instructions Additional Instructions/Restrictions: You were evaluated in the emergency department today. Please follow-up closely with orthopedics. Call Dr. Peterson's office Tuesday to schedule an appointment. supervisor quilting your prescription for pain medication and take as needed for severe pain. You may also take Tylenol and ibuprofen every 4-6 hours as needed for pain, to make sure not to double up on Tylenol with the Oberon as Oberon contains acetaminophen. Keep your splint clean and dry. Do not bear weight with either of your extremities. Return to the emergency department for new or worsening symptoms. Clinical Impressions Clinical Impression: Closed fracture of right distal radius, Fracture of distal end of right ulna, Closed left humeral fracture Stand Alone Forms Stand Alone Forms: Work/School Release Instructions Patient Instructions: DI for Wrist Fracture, How to Take Care of Your Splint, DI for Moderate Sedation, Moderate Sedation, DI for Humeral Fracture Print Language Print Language: Spanish Discharge ED Provider: Beth Arce General Adult HPI General Chief complaint: Extremity Injury, Upper Stated complaint: AO , fell, inj rt wrist, left shoulder Time Seen by Provider: 10/20/24 11:57 Mode of Arrival: Ambulatory Source of Information: Patient Description of Symptoms (Recalled from ER Triage Doc. by RN): FELL UP STEPS, HURT LEFT SHOULDER AND RIGHT WRIST History of Present Illness HPI narrative: This patient is a 59-year-old female with a history of hyperlipidemia, hypothyroidism, diabetes presented to the emergency department for evaluation with concern for right wrist and left shoulder injury. Patient reports that she was walking up steep steps at a basketball game, and when she got to the top of the steps, she took a few steps forward, stumbling forward. She landed on her left shoulder and tried to catch her self with her right hand. She complains of right wrist pain and left shoulder pain. She did not hit her head or lose consciousness. No other concerns noted at this time. She was well prior to this. She takes aspirin but no other blood thinners. This happened just prior to arrival she went to [facility] where she was found to have a comminuted displaced fracture of her right distal radius as well as a left proximal humerus fracture. Given this, they consulted orthopedics who recommended transfer to the ED for reduction and splinting. Related Data Home Medications ?Medication ?Instructions ?Recorded ?Confirmed tramadol 50 mg tablet 50 mg PO BID Pain 02/10/19 12/28/23 Previous Rx's ?Medication ?Instructions ?Recorded baclofen 10 mg tablet 10 mg PO BID PRN muscle spasm #60 12/28/23 tabs cariprazine 1.5 mg capsule 1.5 mg PO DAILY #30 caps 12/28/23 (Vraylar) mirtazapine 30 mg tablet (Remeron) 30 mg PO HS #30 tabs 12/28/23 atorvastatin 10 mg tablet 10 mg PO HS Cholesterol #30 tabs 01/04/24 cholecalciferol (vitamin D3) 1,250 1,250 mcg PO WEEKLY vitamin d 01/04/24 mcg (50,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 #12 caps levothyroxine 100 mcg tablet 100 mcg PO DAILY thyroid #90 tabs 01/04/24 (Synthroid) levothyroxine 50 mcg tablet 50 mcg PO DAILY thyroid #14 tabs 01/04/24 (Synthroid) ubrogepant 100 mg tablet (Ubrelvy) 100 mg PO ONCE PRN migraine 01/10/24 headache #16 tabs azithromycin 250 mg tablet See Rx Instructions PO .COMPLEX 5 06/09/24 (Zithromax Z-Bennett) days #6 tabs benzonatate 100 mg capsule 100 mg PO TID PRN cough #30 caps 06/09/24 methylprednisolone 4 mg tablets in See Rx Instructions .Route 06/09/24 a dose pack (Medrol (Bennett)) .COMPLEX 6 days #21 tabs hydrocodone 5 mg-acetaminophen 325 1 tab PO Q8H PRN pain #12 tabs 10/20/24 mg tablet methocarbamol 500 mg tablet 500 mg PO .Q8h prn #40 tabs 10/20/24 Allergies Allergy/AdvReac Type Severity Reaction Status Date / Time sumatriptan (From IMITREX) Allergy Severe S-DROP IN Verified 12/28/23 09:26 B/P Penicillins (PENICILLINS) Allergy Intermediate I-HIVES Verified 12/28/23 09:26 topiramate (From Topamax) Allergy Intermediate S-DROP IN Verified 12/28/23 09:26 B/P PFSH PFSH Disclaimer: The information contained in this section may have been updated after the patient was seen, as this information can be updated by other users. Medical History Depression Anxiety Hyperlipidemia Hypertension Hypothyroidism Concussion Fracture of lumbar spine Surgical History delivery delivered H/O thyroidectomy History of facial surgery Social History Smoking Status: Never smoker alcohol intake: never current occupational status: retired Travel in the last 8 weeks: None household members: spouse housing: house caffeine: Yes Have you lived/traveled outside [place] in past 30 days?: No Contact w/someone who lives/traveled outside US past 30 days?: No Exposure to someone with infectious disease in past 14 days?: No Do you have a fever (greater than 100.4 F or 38 C)?: No Have you tested positive for COVID-19: No Exposed to someone with COVID-19 in past 14 days?: No Do you have a sore throat?: No Do you have a cough?: No Do you have any weakness?: No Do you have any diarrhea?: No Are you experiencing any unusual bleeding?: No Do you have any muscle aches/pain?: No Do you have any abdominal pain?: No Are you experiencing loss of taste or smell?: No Other Medical History Have you received the Flu Vaccine for this season: No Have you received the Pneumonia Vaccine: No ROS Obtained: Yes All systems reviewed & no additional complaints except as documented Physical Exam General General appearance: alert, in no apparent distress and obese Head Head exam: atraumatic and normocephalic Eye Eye exam: Present normal appearance, PERRL and EOMI ENT ENT exam: Present normal exam, normal oropharynx, mucous membranes moist and normal external ear exam Neck Neck exam: Present normal inspection, full ROM and trachea midline; Absent tenderness Chest Chest inspection: Present normal inspection and symmetric chest wall rise; Absent tenderness Respiratory Respiratory exam: Present normal lung sounds bilaterally; Absent respiratory distress, wheezes, stridor or accessory muscle use Cardiovascular Cardiovascular exam: Present regular rate and normal rhythm Abdominal Exam Abdominal exam: Present soft; Absent distention, tenderness or guarding Extremities Exam Extremities exam: Present tenderness, normal capillary refill, joint swelling (Right wrist) and other (Neurovascularly intact distally with intact movement of all fingers); Absent full ROM (Limited range of motion of left shoulder, right wrist secondary to pain) or edema Back Exam Back exam: Present normal inspection and full ROM; Absent tenderness Neurological Exam Neurological exam: Present alert, oriented X3, CN II-XII intact and normal gait; Absent motor sensory deficit Psychiatric Psychiatric exam: Present normal affect and normal mood Skin Skin exam: Present warm and dry Medical Decision Making Medical Records Medical records reviewed: Yes I reviewed the patient's medical records. Screening: Per USPSTF and CDC recommendations, given the prevalence of disease in our region, it is our hospital?s policy to screen for HIV and viral Hepatitis for all patients aged 18 and over and those with ongoing risk factors. Jose Ramon Inquiry Pt receiving controlled substance: Yes Jose Ramon was queried for this patient: Yes Risks and benefits of using a controlled substance: were discussed with pt by me Vital Signs: 10/20/24 12:01 10/20/24 12:54 10/20/24 13:01 Temperature 98.2 F 98.2 F Temperature Source Oral Oral Pulse Rate 75 Pulse Rate [Left Radial] 91 H 58 L Respiratory Rate 18 21 18 Blood Pressure 146/60 H Blood Pressure [Left Arm] 129/73 146/80 H Blood Pressure Mean 110 Blood Pressure Mean [Left Arm] 91 102 Blood Pressure Source [Left Arm] Automatic Cuff 02 Sat by Pulse Oximetry 97 98 96 Oxygen Delivery Method Room Air 10/20/24 14:00 10/20/24 14:30 10/20/24 14:47 Temperature Temperature Source Pulse Rate 81 120 H 120 H Pulse Rate [Left Radial] Respiratory Rate 18 15 18 Blood Pressure 121/67 156/82 H 143/81 H Blood Pressure [Left Arm] Blood Pressure Mean 85 97 96 Blood Pressure Mean [Left Arm] Blood Pressure Source [Left Arm] 02 Sat by Pulse Oximetry 95 97 98 Oxygen Delivery Method 10/20/24 15:00 10/20/24 15:21 Temperature 98.1 F Temperature Source Oral Pulse Rate 120 H Pulse Rate [Left Radial] 120 H Respiratory Rate 18 16 Blood Pressure 150/73 H Blood Pressure [Left Arm] 145/79 H Blood Pressure Mean 91 Blood Pressure Mean [Left Arm] 101 Blood Pressure Source [Left Arm] 02 Sat by Pulse Oximetry 98 95 Oxygen Delivery Method Room Air Lab Data Lab results reviewed: Yes I reviewed the patient's lab results. Orders (Tests/Meds): ED MEDICATIONS Generic Name Dose Route Start Last Admin Trade Name Freq PRN Reason Stop Dose Admin Oxycodone HCl 5 mg 10/20/24 15:47 Oxycodone 5mg Immediate Release Tablet PO 10/20/24 15:48 ONCE ONE Discontinued Medications Generic Name Dose Route Start Last Admin Trade Name Freq PRN Reason Stop Dose Admin Hydrocodone Bitart/Acetaminophen 2 tab 10/20/24 15:42 Hydrocodone/Apap 5/325 Mg Tablet PO 10/20/24 15:43 ONCE ONE Ketamine HCl 225 mg 10/20/24 15:29 10/20/24 15:31 Ketamine 50mg/1ml Syringe IV 10/20/24 15:30 225 mg ONCE ONE Administration Morphine Sulfate 4 mg 10/20/24 13:13 10/20/24 13:34 Morphine 4mg/Ml Syringe IV 10/20/24 13:14 4 mg ONCE ONE Administration Morphine Sulfate 4 mg 10/20/24 15:25 10/20/24 15:29 Morphine 4mg/Ml Syringe IV 10/20/24 15:26 4 mg ONCE ONE Administration Ondansetron HCl 4 mg 10/20/24 12:54 10/20/24 13:34 Ondansetron 4mg/2ml Vial IV 10/20/24 12:55 4 mg ONCE ONE Administration ORDERS Category Date Time Status CT cervical spine wo con Stat Cat Scan 10/20/24 13:[address] head/brain wo con Stat Cat Scan 10/20/24 13:12 Completed Elbow XR right minimum 3 views [XR elbow RT min 3V] Exams 10/20/24 12:54 Completed Stat Humerus XR left [XR humerus LT] Stat Exams 10/20/24 13:16 Completed Shoulder XR left minimum 2 views [XR shoulder LT min 2V Exams 10/20/24 10:51 Completed ] Stat Wrist XR right minimum 3 views [XR wrist RT min 3V] Exams 10/20/24 12:54 Completed Stat Wrist XR right minimum 3 views [XR wrist RT min 3V] Exams 10/20/24 12:54 Completed Stat XR forearm RT 2V Stat Exams 10/20/24 10:51 Completed XR hand RT 2V Stat Exams 10/20/24 10:51 Completed Medical Decision Narrative: In summary, this patient is a 59-year-old female presenting to the Emergency Department for evaluation of left shoulder and right wrist pain after a mechanical ground-level fall. Differential diagnoses considered include but are not limited to fracture, contusion, strain/brain, neurovascular injury, head trauma, neck trauma. Ruling out the most morbid conditions drove assessment. It should be noted patient's history includes hyperlipidemia, hypothyroidism, diabetes, obesity which may or may not be at goal therapy. This complicates all aspects of care by increasing patient's risk for morbidity. I reviewed patient's past medical records and noted x-rays in [facility] obtained demonstrating comminuted right distal radius fracture as well as left proximal humerus fracture. On exam, the patient is sitting upright in bed in no acute distress. She is neurovascularly intact in both injured extremities. No open wounds. She denies any history of difficult intubation or sedation, difficult airway, or other concern. Given this, we will plan to proceed with procedural sedation for reduction and splinting of right distal radius fracture. Workup included the addition of x-rays to evaluate joint above and below injuries as well as CT head and C-spine. She was given IV morphine and Zofran for pain. I independently in terpreted x-rays prior to the radiologist read and noted significantly displaced right distal radius fracture as well as a nondisplaced left proximal humerus fracture. Please see their read for final interpretation. After informed consent was explained, patient consented to procedural sedation. She tolerated this well with no complications. Reduction was confirmed on postreduction x-ray and patient was placed in a plaster splint by myself. She tolerated this well with no acute complications and remained neurovascularly intact afterward. She was placed in a cuff and collar for the left upper extremity given her proximal humerus fracture for support and pain control. She was given oral Robaxin here for continued pain control. I had an interactive discussion with Dr. Peterson who after reviewing postreduction films advised patient is appropriate for discharge with outpatient follow-up. Strict return precautions were given as well as instruction for supportive management and instructions for close follow-up with Dr. Peterson as an outpatient. She was provided with prescription for Oberon given fractures. Procedures Risk/Benefits of Procedure(s) Were Explained: Yes Orthopedic Fracture Reduction Fracture #1: Time Out Performed: Yes Side: right Fracture Reduction Location: radius and ulna Analgesia: procedural sedation Technique: direct manipulation, traction/counter-traction and finger traps Post Reduction X-rays Demonstrate: acceptable reduction Post-reduction neuro exam: intact and no change Post-reduction vascular exam: intact and no change Splint Applied: Yes Patient Tolerated Procedure: well and no complications Orthopedic Splinting/Casting Injury #1: Side: right Upper Extremity Injury Location: wrist Upper Extremity Immobilizer: sugar tong splint Post Cast/Splinting Neuro Status: intact and no change Post Cast/Splinting Vasc Status: intact and no change Injury #2: Side: left Upper Extremity Injury Location: shoulder Upper Extremity Immobilizer: sling/shoulder immobilizer (Cuff and collar) Post Cast/Splinting Neuro Status: intact and no change Post Cast/Splinting Vasc Status: intact and no change Procedural Sedation Presedation Evaluation: No history of difficult intubation or sedation in the past. No history of anesthesia reaction. No history of cardiopulmonary issues according the patient A heart and lung assessment was performed on this patient at: 14:00 Mallampati Score:: Class III Indication: fracture/dislocation reduction ASA Class: II Preparation: landscape foreman applied, pulse oximeter, capnometry used, supplemental O2 applied, reversal agents at bedside, suction/airway equipment at bedside and IV secured Ketamine: IV Ketamine dose (mg): 225 Patient Tolerated Procedure: well and no complications Complications: none Critical Care Critical Care Time Critical Care Time: No
--- NOTE | 2024-10-20 13:12 | CT_ITS ---
PROCEDURE INFORMATION: Exam: CT Head Without Contrast Exam date and time: 10/20/2024 1:29 PM Age: 59 years old Clinical indication: Injury or trauma; Fall; Blunt trauma (contusions or hematomas); Additional info: Fall, pain TECHNIQUE: Imaging protocol: Computed tomography of the head without contrast. Radiation optimization: All CT scans at this facility use at least one of these dose optimization techniques: automated exposure control; mA and/or kV adjustment per patient size (includes targeted exams where dose is matched to clinical indication); or iterative reconstruction. COMPARISON: CT HEAD/BRAIN WO CON 04/23/2020 10:43 AM FINDINGS: Brain: No hemorrhage. No intra-axial or extra-axial lesions or masses. No midline shift. Cerebral ventricles: No ventriculomegaly. Paranasal sinuses: Visualized sinuses are well aerated. No fluid levels. Mastoid air cells: Visualized mastoid air cells are well aerated. Bones: No acute fractures or bone lesions. Soft tissues: No abnormalities. IMPRESSION: No acute intracranial abnormalities.
--- NOTE | 2024-10-20 13:12 | CT_ITS ---
PROCEDURE INFORMATION: Exam: CT Cervical Spine Without Contrast Exam date and time: 10/20/2024 1:29 PM Age: 59 years old Clinical indication: Pain and injury or trauma; Fall; Blunt trauma; Neck pain; Additional info: Fall, pain TECHNIQUE: Imaging protocol: Computed tomography of the cervical spine without contrast. Radiation optimization: All CT scans at this facility use at least one of these dose optimization techniques: automated exposure control; mA and/or kV adjustment per patient size (includes targeted exams where dose is matched to clinical indication); or iterative reconstruction. COMPARISON: CT CERVICAL SPINE WO CON 04/23/2020 10:43 AM FINDINGS: Bones: No acute fracture. Normal alignment. No significant disc bulge or herniation. No severe spinal canal stenosis. No significant neural foraminal narrowing. Mild disc space narrowing at C5-C6 and C6-C7. Calcified disc bulge or ossified posterior longitudinal ligament at C3-C4 is unchanged and causes no significant mass effects Lungs: Lung apices are normal. Soft tissues: No paraspinal or prevertebral soft tissue masses. IMPRESSION: No acute findings in the cervical spine.
--- NOTE | 2024-10-20 13:16 | XR_ITS ---
PROCEDURE INFORMATION: Exam: XR Left Humerus Exam date and time: 10/20/2024 1:32 PM Age: 59 years old Clinical indication: Pain; Upper arm; Left; Additional info: Fall, pain TECHNIQUE: Imaging protocol: Radiologic exam of the left humerus. Views: 2 or more views. COMPARISON: CR XR SHOULDER LT MIN 2V 10/20/2024 10:47 AM FINDINGS: Bones/joints: Greater tuberosity fracture in the proximal left humerus is in near anatomic alignment. No other fractures, dislocations, or focal bone lesions. Soft tissues: No soft tissue abnormalities or radiopaque foreign bodies. No soft tissue gas. IMPRESSION: 1. Acute, nondisplaced fracture of the greater tuberosity of the left humerus. 2. No other acute findings in the left humerus.
[2024-10-20] MEDS: MORPHINE 4MG/ML SYRINGE 4 MG IV ×2 (13:34→15:29)
[2024-10-20] MEDS: ONDANSETRON 4MG/2ML VIAL 4 MG IV (13:34)
--- NOTE | 2024-10-20 14:29 | PC.NURSE ---
RADIOLOGY NOTIFIED OF POST REDUCTION XR
--- NOTE | 2024-10-20 15:24 | PC.NURSE ---
DR DURON SPEAKING WITH DR NELSON
[2024-10-20] MEDS: KETAMINE 50MG/1ML SYRINGE 225 MG IV (15:31)
[2024-10-20] MEDS: HYDROCODONE/APAP 5/325 MG TABLET 2 TAB PO (16:23)
== END 2024-10-20 16:25 | disposition home or self-care (01) ==
LOC: UTC 12:52 → ER 12:53
PROVIDERS: Emergency Provider Student in an Organized Health Care Education/Training Program; PCP Physician Assistant
DX: S42.302A Unspecified fracture of shaft of humerus, left arm, initial encounter for closed fracture (principal); S52.601A Unspecified fracture of lower end of right ulna, initial encounter for closed fracture; S52.501A Unspecified fracture of the lower end of right radius, initial encounter for closed fracture; M25.531 Pain in right wrist; M79.602 Pain in left arm; M25.512 Pain in left shoulder; W10.8XXA Fall (on) (from) other stairs and steps, initial encounter; Y93.89 Activity, other specified; Y92.89 Other specified places as the place of occurrence of the external cause
CPT/HCPCS: 29105; 70450; 72125; 73030; 73060; 73080; 73090; 73110; 73120; 96374; 96375; 99152; 99153; 99285; J2270; J2405

== ENCOUNTER 2024-10-24 12:06 | Outpatient (CLI) | payer MEDICARE, SELFPAY ==
[2024-10-24 12:56] LABS: Hematocrit 37.8 % (37.0-47.0); Hemoglobin 11.9 g/dL (12.2-16.2); Mean Corpuscular HGB Conc 31.5 g/dL (31.8-35.4); Mean Corpuscular Hemoglobin 25.8 pg (27.0-31.2); Mean Corpuscular Volume 81.8 fl (81-99); Neutrophils % 82.5 % (37.0-80.0); Platelet Count 265 K/mm3 (142-424); Red Blood Count 4.62 M/mm3 (4.20-5.40); Red Cell Distribution Width 15.3 % (11.5-17.5); White Blood Count 14.4 K/mm3 (4.8-10.8)
[2024-10-24 12:57] LABS: Basophils % 0.3 % (0.1-2.0); Eosinophils # 0.1 K/mm3 (0.0-0.4); Eosinophils % 0.5 % (0.1-12.0); Lymphocytes # 1.4 K/mm3 (0.7-4.5); Lymphocytes % 9.6 % (10-50); Monocytes % 6.6 % (1.7-9.3); Neutrophils # 11.8 K/mm3 (1.8-7.8)
[2024-10-24 13:26] LABS: Chloride 106 mmol/L (98-107); Potassium 4.2 mmoL/L (3.5-5.1); Sodium 137 mmol/L (136-145)
[2024-10-24 13:28] LABS: Blood Urea Nitrogen 23 mg/dl (7-17); Estimated Glomerular Filt Rate 42 ml/min (>60); GFR (African American) 50 ML/MIN (>60)
[2024-10-24 13:29] LABS: Anion Gap 14.2 mEq/L (5-15); Calcium 9.3 mg/dl (8.4-10.2); Carbon Dioxide 21 mmol/L (22.0-30.0); Glucose 174 mg/dl (74-100)
== END 2024-10-24 23:59 | disposition home or self-care (01) ==
LOC: PREOP 12:09
PROVIDERS: Physician Assistant; PCP Physician Assistant; Visit Provider Orthopaedic Surgery
DX: S52.501A Unspecified fracture of the lower end of right radius, initial encounter for closed fracture (principal); S52.601A Unspecified fracture of lower end of right ulna, initial encounter for closed fracture
CPT/HCPCS: 36415; 80048; 85025

== ENCOUNTER 2024-10-26 07:33 | Day surgery (SDC) | payer MEDICARE, SELFPAY ==
[2024-10-25 13:59] VITALS: BMI 37.5
[2024-10-26] VITALS (11 sets, daily range): BP systolic 127–148; BP diastolic 76–92; PULSE 79–97; RESP 16–18; TEMP 36.4–43; O2SAT 90–97; BMI 37.5
--- NOTE | 2024-10-26 08:05 | ECG_ITS ---
APPROVED REPORT Exam: Resting ECG HR:84 bpm ECG Measurements Heart Rate 84 AXES [place] 158 P 40 QRSd 122 QRS 225 QT 380 T 98 QTc 421 Conclusion SINUS RHYTHM RIGHT AXIS DEVIATION [QRS AXIS > 100] RIGHT BUNDLE BRANCH BLOCK [120+ ms QRS DURATION, UPRIGHT V1, 40+ ms S IN I/aVL/V4/V5/V6] INFERIOR MYOCARDIAL INFARCTION , OF INDETERMINATE AGE [40+ ms Q WAVE AND/OR ST/T ABNORMALITY IN II/aVF] ABNORMAL ECG UNCONFIRMED REPORT Electronically signed by : Xander Bonds MD 10/28/2024 09:13:08
[2024-10-26] MEDS: LACTATED RINGERS 1000ML 1,000 ML 100 ML IV (08:11)
[2024-10-26 08:39] LABS: POC Glucose,Bedside 141 (70-110)
--- NOTE | 2024-10-26 09:14 | P.PNANES_ITS ---
[facility] Disclaimer: The information contained in this section may have been updated after the patient was seen, as this information can be updated by other users. Medical History Depression Anxiety Hyperlipidemia Hypertension Hypothyroidism Concussion Fracture of lumbar spine Surgical History delivery delivered H/O thyroidectomy History of facial surgery Family History Other Family history of diabetes mellitus Family history of heart disease Social History Smoking Status: Never smoker alcohol intake: never substance use type: denies use current occupational status: retired Travel in the last 8 weeks: None household members: spouse housing: house caffeine: Yes [facility] Anesthesia Checklist Patient Identification Patient Identification: Arm Band Structural Data Admitted From: Home Planned Operative Procedure/s: ORIF Right Wrist Consent for Planned Operative Procedure(s) Verified: Yes Verified Documents: Surgical Consent and History and Physical NPO Status Verified Time NPO: 00:00 Additional verifications Anesthesia Reactions: No Hx Blood Transfusions: No Blood Transfusion Reaction: No Airway Assessment Mallampati Score:: Class II C-Spine Mobility Assessed: Yes TMJ Mobility Assessed: Yes Dentition: Good Dentition (Upper edentulous) Neurological Assessment Level of Consciousness: Awake, Alert and Appropriate Anesthesia Plan Anesthesia Risk discussed: Yes Anesthesia Plan: Verified ASA Class: III Anesthesia Type: General w/block (Right Supraclavicular Nerve Block. Risks/benefits explained. P) Preoperative Comments Pre-Operative Comments: Pt with abnormal preoperative EKG. Pt also describes recent chest pain. Cardiology consulted and cleared for surgery. Will advise pt to follow up with cardiology postoperatively.
[2024-10-26] MEDS: CLINDAMYCIN PHOSPHATE/D5W 900 MG/50 ML PIGGYBACK 100 MG IV (09:30)
--- NOTE | 2024-10-26 10:19 | P.CONCA_ITS ---
History of Present Illness History of Present Illness Consult date: 10/26/24 Requesting physician: Bk Bahena Consult reason: chest pain Chief complaint: CP and abnl EKG History of present illness: 59-year-old white female without known cardiovascular disease who is currently in preop awaiting repair of right radial fracture. I am consulted due to EKG on presentation which shows right bundle branch block which is new to patient as well as questionable old inferior infarct. Patient does acknowledge chest pain intermittently which she states is sharp in nature and occurs with emotional distress and is unchanged for several years. She states she is short of breath with activity, BMI is 37 but she has had no changes in her exertional capacity over the past 6 months. She is newly diagnosed diabetic and has never had cardiac workup. [facility] Disclaimer: The information contained in this section may have been updated after the patient was seen, as this information can be updated by other users. Medical History Depression Anxiety Hyperlipidemia Hypertension Hypothyroidism Concussion Fracture of lumbar spine Surgical History delivery delivered H/O thyroidectomy History of facial surgery Family History Other Family history of diabetes mellitus Family history of heart disease Social History Smoking Status: Never smoker alcohol intake: never current occupational status: retired Travel in the last 8 weeks: None household members: spouse housing: house caffeine: Yes Have you lived/traveled outside [place] in past 30 days?: No Contact w/someone who lives/traveled outside [place] past 30 days?: No Exposure to someone with infectious disease in past 14 days?: No Do you have a fever (greater than 100.4 F or 38 C)?: No Have you tested positive for COVID-19: No Exposed to someone with COVID-19 in past 14 days?: No Do you have a sore throat?: No Do you have a cough?: No Do you have any weakness?: No Are you experiencing any nausea/vomitting?: No Do you have any diarrhea?: No Are you experiencing any unusual bleeding?: No Do you have any muscle aches/pain?: No Do you have any abdominal pain?: No Are you experiencing loss of taste or smell?: No Review of Systems Constitutional Constitutional: Denies fatigue and Denies weakness Eyes Eyes: Denies loss of vision ENT Ears, Nose, Mouth, and Throat: Denies hearing loss and Denies vertigo *Cardiovascular Cardiovascular: Reports chest pain, Denies dyspnea and Denies syncope *Respiratory Respiratory: Denies cough and Denies dyspnea *Gastrointestinal Gastrointestinal: Denies change in stool character, Denies nausea and Denies vomiting *Musculoskeletal Musculoskeletal: Denies muscle weakness Comments: right arm pain Integumentary/Breasts Skin/Breast: Denies changing lesions *Neurologic Neurologic: Denies loss of vision, Denies syncope, Denies vertigo and Denies weakness Endocrine Endocrine: Denies fatigue Exam Data for Last 24 hours Vital signs and Labs for Last 24 Hours: Temp Pulse Resp BP Pulse Ox O2 Del Method 98.9 F 79 18 148/83 H 97 Room Air 10/26/24 07:59 10/26/24 07:59 10/26/24 07:59 10/26/24 07:59 10/26/24 07:59 10/26/24 07:59 Laboratory Results - last 24 hr 10/26/24 08:33: POC Glucose 141 H I & O for Last 24 hours: Intake & Output 10/23/24 10/24/24 10/25/24 10/26/24 23:59 23:59 23:59 23:59 Weight 233 lb 233 lb Meds Home Medications and Allergies Home Medications ?Medication ?Instructions ?Recorded ?Confirmed ?Type tramadol 50 mg tablet 50 mg PO BID Pain 02/10/19 10/26/24 History baclofen 10 mg tablet 10 mg PO BID PRN muscle spasm #60 12/28/23 10/26/24 Rx tabs cariprazine 1.5 mg capsule 1.5 mg PO DAILY #30 caps 12/28/23 10/26/24 Rx (Vraylar) mirtazapine 30 mg tablet (Remeron) 30 mg PO HS #30 tabs 12/28/23 10/26/24 Rx atorvastatin 10 mg tablet 10 mg PO HS Cholesterol #30 tabs 01/04/24 10/26/24 Rx cholecalciferol (vitamin D3) 1,250 1,250 mcg PO WEEKLY vitamin d 01/04/24 10/26/24 Rx mcg (50,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 #12 caps levothyroxine 100 mcg tablet 100 mcg PO DAILY thyroid #90 tabs 01/04/24 10/26/24 Rx (Synthroid) levothyroxine 50 mcg tablet 50 mcg PO DAILY thyroid #14 tabs 01/04/24 10/26/24 Rx (Synthroid) ubrogepant 100 mg tablet (Ubrelvy) 100 mg PO ONCE PRN migraine 01/10/24 10/26/24 Rx headache #16 tabs benzonatate 100 mg capsule 100 mg PO TID PRN cough #30 caps 06/09/24 10/26/24 Rx methylprednisolone 4 mg tablets in See Rx Instructions .Route 06/09/24 10/26/24 Rx a dose pack (Medrol (Bennett)) .COMPLEX 6 days #21 tabs hydrocodone 5 mg-acetaminophen 325 1 tab PO Q8H PRN pain #12 tabs 10/20/24 10/26/24 Rx mg tablet methocarbamol 500 mg tablet 500 mg PO .Q8h prn #40 tabs 10/20/24 10/26/24 Rx ondansetron 4 mg disintegrating 4 mg PO Q8H #90 tabs 10/24/24 10/26/24 Rx tablet New Prescriptions to Start Prescriptions: Allergies Allergy/AdvReac Type Severity Reaction Status Date / Time sumatriptan (From IMITREX) Allergy Severe S-DROP IN Verified 10/26/24 08:11 B/P Penicillins (PENICILLINS) Allergy Intermediate I-HIVES Verified 10/26/24 08:11 topiramate (From Topamax) Allergy Intermediate S-DROP IN Verified 10/26/24 08:11 B/P Assessment and Plan *Assessment and plan (1) Pre-op evaluation: Status: Acute Category: Medical Code(s): Z01.818 - Encounter for other preprocedural examination (2) Chest pain: Status: Acute Category: Medical Code(s): R07.9 - Chest pain, unspecified (3) Closed fracture of right distal radius: Status: Acute Category: Medical Code(s): S52.501A - Unspecified fracture of the lower end of right radius, initial encounter for closed fracture Plan Cardiac Pre-Op Evaluation - I discussed with patient and her daughter who is a nurse and is bedside that she does carry cardiac risk factors but does not appear to have any unstable symptoms or acute findings on EKG. As such I think delaying her surgery is un necessary. I did offer this as an option to patient and her daughter but they both feel comfortable proceeding with surgery and will schedule appointment in our office at a later date for CV risk assessment given her numerous risk factors. RBBB - new, benign Abnl EKG - questionable old inferior infarct - recommend outpatient evaluation in our clinic CV stable, please advise if further concerns this admission. Findings relayed to Anesthesia team. Please schedule her with our office in 2-4 weeks.
--- NOTE | 2024-10-26 11:00 | XR_ITS ---
FINAL REPORT CLINICAL HISTORY: ORIF RT WRIST 0.6 min 0.90 mGy FINDINGS: FLUOROSCOPY LESS THAN 1 HOUR HISTORY: Fluoroscopy guidance. Fluoroscopic guidance was provided for right wrist ORIF. 3 spot films were obtained. A total of 0.6 minutes of fluoroscopy time were used. Total DAP: 0.90 mGy IMPRESSION: As above. Reviewed, Interpreted and Dictated by Donis Deng MD Transcribed by Linda Salas Authenticated and [facility]
--- NOTE | 2024-10-26 11:09 | EXP.OP.NOTE ---
Date of procedure: 10/26/24 Pre-op Diagnosis:: Right distal radius fracture Post-op Diagnosis:: Right distal radius fracture intra-articular severely comminuted Procedure performed:: Open reduction internal fixation right distal radius fracture with volar plating intra-articular 3+ part Surgeon:: Wei Peterson DO Director Of Contracts(s):: Isak MONTENEGRO IT HELP DESK TECHNICIAN:: Bk Bahena Anesthesia: GETA and regional Estimated blood loss (mL): 0 Operative findings:: Severely comminuted intra-articular distal radius fracture Operative note:: Patient was identified preoperatively. Right wrist marked with yes and my initials. Transported to operative suite. Placed upon operating bed. General anesthesia was administered and airway was secured patient had undergone a regional block with anesthesia in preop area. Right upper extremity was then prepped and draped in normal sterile fashion. Once prepped and draped final operative timeout performed to identify proper patient procedure and extremity. Everyone involved in the case agreed. There were no counter indications to beginning. She did receive preoperative antibiotics. Marking pen was used to barrie plan incision over the volar wrist. Esmarch was used to exsanguinate the extremity and pneumatic tourniquet inflated to 250 mmHg. Skin knife is used to incise through skin dissection is taken down over the FCR tendon. FCR tendon sheath was opened. And retracted radially throughout the procedure to protect the radial artery. The floor the FCR was also opened sharply. Self-retaining retractor placed pronator quadratus identified it was cut in L-type fashion off the distal radius this exposed the fracture site fracture hematoma evacuated there was severe comminution of the distal radial fragments. Using meticulous reduction with the dental pick K wires reduction was performed to restore volar tilt and volar cortex. This is pulmonary really held with fixation and K wire. The volar distal radial plate was selected and placed on the shaft this was visualized on the AP and lateral views to be in proper placement with alignment then a cortical screw was placed in the shaft of the volar plate K wire remained for stabilization and then attention was brought to the distal locking screws. Distal locking screws were placed with the variable angle guide into the distal radius and proper trajectory and alignment and length. The distal holes were filled and then 2 additional locking screws were placed in the shaft. X-rays were taken the AP and lateral views to show acceptable reduction and good fixation. Irrigation of the wound performed. Deep layers closed with Vicryl stitch skin closed with nylon stitch and a sterile dressing placed a well-padded volar splint was placed patient was then waken anesthesia taken recovery. Condition: stable Disposition: PACU Complications:: None apparent.
--- NOTE | 2024-10-26 11:26 | P.PNANES_ITS ---
[facility] Anesthesia Record Part I Anesthesia Record I Intake, IV Amount: 1,200 Hydration: Adequate Estimated blood loss (mL): 5 Urine output (mL): 0 Blood Products used (#): none Blood Pressure: 134/76 SaO2: 94 Pulse Rate: 97 Airway Patency: Patent Respiratory Rate: 16 Temperature: 98.9 F Patient is:: Drowsy and Stable Stable to PACU at:: 11:25
[2024-10-26 11:39] LABS: POC Glucose,Bedside 158 (70-110)
--- NOTE | 2024-10-26 14:37 | P.PNANES_ITS ---
[facility] Anesthesia Record Part II Anesthesia Record Part II Discharge Time: 11:55 Destination: Surgical Day Care (OP Surgery) PACU nurse assessment reviewed?: Yes Patient Condition:: Good Anesthesia Complications:: None Swallowing reflex intact?: Yes Airway Patency: Patent Cyanosis?: No Blood Pressure: 144/88 SaO2: 94 Respiratory Rate: 18 Pulse Rate: 88 Temperature: 98.9 F Mental Status: Alert & Oriented Pain level:: 0 Nausea and/or vomitting:: None Intake, IV Amount: 0 Hydration: Adequate
== END 2024-10-26 12:24 | disposition home or self-care (01) ==
PROVIDERS: PCP Physician Assistant; Visit Provider Orthopaedic Surgery
PROC: (CPT 25609; principal; 2024-10-26 09:00)
DX: S52.571A Other intraarticular fracture of lower end of right radius, initial encounter for closed fracture (principal); S52.501A Unspecified fracture of the lower end of right radius, initial encounter for closed fracture; Z01.818 Encounter for other preprocedural examination; R07.9 Chest pain, unspecified; W10.9XXA Fall (on) (from) unspecified stairs and steps, initial encounter; Y92.310 Basketball court as the place of occurrence of the external cause
CPT/HCPCS: 25609; 73100; 82962; 93005; 96374; C1713; C1776; J0736; J1100; J2250; J2405; J3010; J7120

== ENCOUNTER 2024-10-30 06:51 | Outpatient (CLI) | payer MEDICARE, SELFPAY ==
--- NOTE | 2024-10-30 06:51 | CT_ITS ---
FINAL REPORT TECHNIQUE: Axial images through the left shoulder was obtained by computed tomography. Sagittal and coronal reformatted images were obtained and reviewed. This study was performed with techniques to keep radiation doses as low as reasonably achievable, (ALARA). Individualized dose reduction techniques using automated exposure control or adjustment of mA and/or kV according to the patient's size were employed. CLINICAL HISTORY: left shoulder fx FINDINGS: There is a comminuted fracture of the humeral head, largest fracture fragment involves the greater tuberosity with up to 1 cm of displacement. Humeral neck is intact. There is no subluxation or dislocation. There are mild degenerative changes of the AC joint. IMPRESSION: Mildly comminuted fracture of the humeral head with the largest component involving the greater tuberosity. No involvement of the neck. Reviewed, Interpreted and Dictated by Donis Deng MD Transcribed by Lilia Barron Authenticated and [facility]
== END 2024-10-30 23:59 | disposition home or self-care (01) ==
PROVIDERS: PCP Physician Assistant; Visit Provider Physician Assistant
DX: S42.302A Unspecified fracture of shaft of humerus, left arm, initial encounter for closed fracture (principal)
CPT/HCPCS: 73200

== ENCOUNTER 2024-11-13 14:59 | Outpatient (CLI) | payer MEDICARE, SELFPAY ==
--- NOTE | 2024-11-13 15:02 | XR_ITS ---
FINAL REPORT CLINICAL HISTORY: right orif COMPARISON: 10/20/2024 FINDINGS: RIGHT WRIST Three views demonstrate interval application of a sideplate and screws securing a comminuted fracture of the distal radial metaphysis. The impaction has been partially reduced. There is also a fracture of the ulnar styloid. The soft tissues are unremarkable. IMPRESSION: Interval postoperative changes as above. Reviewed, Interpreted and Dictated by Jono Koch MD Transcribed by Linda Salas Authenticated and [facility]
== END 2024-11-13 23:59 | disposition home or self-care (01) ==
LOC: RAD 15:00
PROVIDERS: PCP Physician Assistant; Visit Provider Orthopaedic Surgery
DX: Z98.890 Other specified postprocedural states (principal); S62.101A Fracture of unspecified carpal bone, right wrist, initial encounter for closed fracture
CPT/HCPCS: 73110

== ENCOUNTER 2024-11-26 03:49 | Emergency (ER) | payer MEDICARE, SELFPAY ==
[2024-11-26] VITALS (8 sets, daily range): BP systolic 95–147; BP diastolic 52–82; PULSE 56–71; RESP 15–19; TEMP 37.1; O2SAT 96–97; BMI 35.0
[2024-11-26] MEDS: ASPIRIN 81MG CHEWABLE TABLET 324 MG PO (04:12)
[2024-11-26 04:15] LABS: Basophils % 0.2 % (0.1-2.0); Eosinophils # 0.1 K/mm3 (0.0-0.4); Eosinophils % 1.4 % (0.1-12.0); Hematocrit 37.8 % (37.0-47.0); Hemoglobin 11.6 g/dL (12.2-16.2); Lymphocytes # 2.2 K/mm3 (0.7-4.5); Lymphocytes % 22.9 % (10-50); Mean Corpuscular HGB Conc 30.7 g/dL (31.8-35.4); Mean Corpuscular Hemoglobin 26.1 pg (27.0-31.2); Mean Corpuscular Volume 84.9 fl (81-99); Mean Platelet Volume 9.3 fl (7.4-10.4); Monocytes # 0.8 K/mm3 (0.1-1.0); Monocytes % 8.2 % (1.7-9.3); Neutrophils # 6.4 K/mm3 (1.8-7.8); Neutrophils % 66.8 % (37.0-80.0); Platelet Count 231 K/mm3 (142-424); Red Blood Count 4.45 M/mm3 (4.20-5.40); Red Cell Distribution Width 16.7 % (11.5-17.5); White Blood Count 9.5 K/mm3 (4.8-10.8)
[2024-11-26] MEDS: ONDANSETRON 4MG/2ML VIAL 4 MG IV (04:15)
--- NOTE | 2024-11-26 04:15 | ECG_ITS ---
APPROVED REPORT Exam: Resting ECG HR:68 bpm ECG Measurements Heart Rate 68 AXES NE 161 P 48 QRSd 102 QRS 254 QT 412 T 60 QTc 429 Conclusion SINUS RHYTHM RIGHT AXIS DEVIATION [QRS AXIS > 100] LOW QRS VOLTAGE IN EXTREMITY LEADS [QRS DEFLECTION < 0.5 mV IN LIMB LEADS] POSSIBLE ANTERIOR MYOCARDIAL INFARCTION , OF INDETERMINATE AGE [30 ms Q WAVE IN V3/V4, OR R < 0.2 mV IN V4] INFERIOR MYOCARDIAL INFARCTION , OF INDETERMINATE AGE [40+ ms Q WAVE AND/OR ST/T ABNORMALITY IN II/aVF] No STEMI Electronically signed by : DANYEL EDWARDS, 11/26/2024 08:29:46
[2024-11-26 04:19] LABS: Sodium 144 mmol/L (136-145)
[2024-11-26 04:21] LABS: Alanine Aminotransferase 28 U/L (12-78); Albumin Level 4.2 g/dl (3.5-5.0); Albumin/Globulin Ratio 1.3 (1.1-1.8); Alkaline Phosphatase 102 U/L (38-126); Anion Gap 12.2 mEq/L (5-15); Aspartate Amino Transferase 34 U/L (14-36); Bilirubin,Total 0.2 mg/dl (0.2-1.3); Blood Urea Nitrogen 17 mg/dl (7-17); Calcium 9.8 mg/dl (8.4-10.2); Carbon Dioxide 29 mmol/L (22.0-30.0); Chloride 107 mmol/L (98-107); Creatinine Clearance Estimated 92 mL/min (50-200); Estimated Glomerular Filt Rate 56 ml/min (>60); GFR (African American) 68 ML/MIN (>60); Globulin 3.2 g/dL (1.3-3.2); Glucose 118 mg/dl (74-100); Potassium 4.2 mmoL/L (3.5-5.1); Total Protein,Serum 7.4 g/dl (6.3-8.2)
[2024-11-26 04:33] LABS: NT Pro Brain Natriuretic Pep. 81.2 pg/mL (0-125)
[2024-11-26 04:41] LABS: Troponin I < 0.01 ng/ml (0.00-0.034)
[2024-11-26] MEDS: KETOROLAC 30MG/ML VIAL 15 MG IV (04:43)
[2024-11-26] MEDS: ACETAMINOPHEN 500MG TAB 1000 MG PO (04:43)
[2024-11-26 04:54] LABS: HIV Combo NEGATIVE (Negative)
[2024-11-26 04:55] LABS: INR 0.89 (0.9-1.1); Prothrombin Time 9.9 seconds (9.2-12.1)
[2024-11-26 05:02] LABS: Hepatitis C Ab Qual. W/ RFX NEGATIVE (Negative)
[2024-11-26 05:10] LABS: D-Dimer 0.65 ug/mL (0.0-0.5)
--- NOTE | 2024-11-26 05:38 | XR_ITS ---
PROCEDURE INFORMATION: Exam: XR Left Shoulder Exam date and time: 11/26/2024 5:40 AM Age: 59 years old Clinical indication: Injury or trauma; Fall; Other: Pain; Additional info: Fall, pain TECHNIQUE: Imaging protocol: Radiologic exam of the left shoulder. Views: 2 or more views. COMPARISON: CT SHOULDER LT WO CON 10/30/2024 6:59 AM FINDINGS: Bones/joints: There are areas of cortical disruption seen laterally along the greater tuberosity and some sclerosis is noted internally consistent with known comminuted humeral head fracture. Soft tissues: Normal. IMPRESSION: Left humeral head fracture.
--- NOTE | 2024-11-26 05:48 | XR_ITS ---
PROCEDURE INFORMATION: Exam: XR Chest Exam date and time: 11/26/2024 5:57 AM Age: 59 years old Clinical indication: Pain; Chest pressure; Additional info: Cp TECHNIQUE: Imaging protocol: Radiologic exam of the chest. Views: 1 view. COMPARISON: CT CHEST W CON 04/23/2020 10:52 AM FINDINGS: Lungs: Unremarkable. No consolidation. Pleural spaces: Unremarkable. No pleural effusion. No pneumothorax. Heart/Mediastinum: Unremarkable. No cardiomegaly. Bones/joints: Unremarkable. IMPRESSION: No acute findings.
--- NOTE | 2024-11-26 07:00 | ED_ITS ---
Discharge Plan Disposition Patient Disposition: Home, Self-Care Condition: Good Prescriptions Prescriptions: No Action baclofen 10 mg tablet 10 mg PO BID PRN (Reason: muscle spasm) Qty: 60 2RF Vraylar 1.5 mg capsule 1.5 mg PO DAILY Qty: 30 2RF mirtazapine [Remeron] 30 mg tablet 30 mg PO HS Qty: 30 2RF ondansetron 4 mg tablet,disintegrating 4 mg PO Q8H Qty: 90 0RF atorvastatin 10 mg tablet 10 mg PO HS Qty: 30 1RF cholecalciferol (vitamin D3) 1,250 mcg (50,000 unit) capsule 1,250 mcg PO WEEKLY Qty: 12 2RF levothyroxine [Synthroid] 50 mcg tablet 50 mcg PO DAILY Qty: 14 0RF Rx Instructions: 50 mcg's for 2 weeks and then 100 mcg's after that levothyroxine [Synthroid] 100 mcg tablet 100 mcg PO DAILY Qty: 90 0RF Rx Instructions: 50 mcg's for 14 days and 100 mcg's after that Ubrelvy 100 mg tablet 100 mg PO ONCE PRN (Reason: migraine headache) Qty: 16 2RF benzonatate 100 mg capsule 100 mg PO TID PRN (Reason: cough) Qty: 30 0RF methylprednisolone [Medrol (Bennett)] 4 mg tablets,dose pack See Rx Instructions .Route .COMPLEX 6 Days Qty: 21 0RF Rx Instructions: taper pack; hydrocodone-acetaminophen 5-325 mg tablet 1 tab PO Q8H PRN (Reason: pain) Qty: 12 0RF methocarbamol 500 mg tablet 500 mg PO .Q8h prn Qty: 40 0RF hydrocodone-acetaminophen 5-325 mg tablet 1 tab PO Q6H PRN (Reason: post op pain) Qty: 40 0RF Referrals Follow up/Referrals: Sobeida Richmond PA [Primary Care Provider] - See instructions Seema Scott MD [Physician] - See instructions Won Lau MD [Staff Physician] - See instructions Activity Restrictions/Add. Instructions Additional Instructions/Restrictions: You were evaluated in the emergency department today. At this time, your x-ray looks stable of your arm. Your workup is very reassuring, but I recommend close follow-up with a preschool disability teacher as well as your primary care provider. Continue following up with orthopedics for evaluation and management of your left humerus fracture. Return to the emergency department for new or worsening symptoms. Clinical Impressions Clinical Impression: Chest pain, Closed left humeral fracture, Fall Instructions Patient Instructions: DI for Atypical Chest Pain Print Language Print Language: Slovak Discharge ED Provider: Maria Del Rosario Elliott <Maria Del Rosario Elliott MD - Last Filed: 11/26/24 07:16> General Chief Complaint: Chest Pain Stated Complaint: Chest pain Time Seen by Provider: 11/26/24 04:00 Mode of Arrival: Ambulatory Source of Information: Patient and Relative Limitations: No Limitations Description of Symptoms (Recalled from ER Triage Doc. by RN): Patient reports to ED with chest pain that started 01:30 this morning. Patient reports pain radiating to her left shoulder. Daughter reports patient has a broken left shoulder from a fall. Patient rates pain 7/10, no medication given at home. Vitals are stable on arrival. Patient ambulated into ED independently. History of Present Illness HPI narrative: 59-year-old female presents to the ER with complaint of chest pain. Patient has a history of diabetes, hyperlipidemia, hypothyroid, recent fall with multi extremity injury. During my history, patient and family reports that chest pain started around midnight. Patient reports pressure and pain radiating to the left shoulder and arm. Patient does have a broken left shoulder from a previous fall which is currently being managed conservatively, hoping to avoid surgery. Patient reports she had another near fall at home earlier today. She states she caught herself on the toilet and did not actually fall, but since then her left shoulder has been hurting more. Patient rates her chest pain 7 out of 10. No medications given prior to arrival. Patient brought to the ER for further evaluation due to the chest pain and pressure. Patient reports no other concerns from the fall, she did not strike her head or actually fall to the ground. She has no numbness, tingling, or weakness. No recent illness. No other concerns at this time. Related Data Previous Rx's ?Medication ?Instructions ?Recorded baclofen 10 mg tablet 10 mg PO BID PRN muscle spasm #60 12/28/23 tabs cariprazine 1.5 mg capsule 1.5 mg PO DAILY #30 caps 12/28/23 (Vraylar) mirtazapine 30 mg tablet (Remeron) 30 mg PO HS #30 tabs 12/28/23 atorvastatin 10 mg tablet 10 mg PO HS Cholesterol #30 tabs 01/04/24 cholecalciferol (vitamin D3) 1,250 1,250 mcg PO WEEKLY vitamin d 01/04/24 mcg (50,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 #12 caps levothyroxine 100 mcg tablet 100 mcg PO DAILY thyroid #90 tabs 01/04/24 (Synthroid) levothyroxine 50 mcg tablet 50 mcg PO DAILY thyroid #14 tabs 01/04/24 (Synthroid) ubrogepant 100 mg tablet (Ubrelvy) 100 mg PO ONCE PRN migraine 01/10/24 headache #16 tabs benzonatate 100 mg capsule 100 mg PO TID PRN cough #30 caps 06/09/24 methylprednisolone 4 mg tablets in See Rx Instructions .Route 06/09/24 a dose pack (Medrol (Bennett)) .COMPLEX 6 days #21 tabs hydrocodone 5 mg-acetaminophen 325 1 tab PO Q8H PRN pain #12 tabs 10/20/24 mg tablet methocarbamol 500 mg tablet 500 mg PO .Q8h prn #40 tabs 10/20/24 ondansetron 4 mg disintegrating 4 mg PO Q8H #90 tabs 10/24/24 tablet hydrocodone 5 mg-acetaminophen 325 1 tab PO Q6H PRN post op pain #40 10/26/24 mg tablet tabs Allergies Allergy/AdvReac Type Severity Reaction Status Date / Time sumatriptan (From IMITREX) Allergy Severe S-DROP IN Verified 11/13/24 15:23 B/P Penicillins (PENICILLINS) Allergy Intermediate I-HIVES Verified 11/13/24 15:23 topiramate (From Topamax) Allergy Intermediate S-DROP IN Verified 11/13/24 15:23 B/P PFSH <Maria Del Rosario Elliott MD - Last Filed: 11/26/24 07:16> PFS Disclaimer: The information contained in this section may have been updated after the patient was seen, as this information can be updated by other users. Medical History Depression Anxiety Hyperlipidemia Hypertension Hypothyroidism Concussion Fracture of lumbar spine Surgical History delivery delivered H/O thyroidectomy History of facial surgery Family History Other Family history of diabetes mellitus Family history of heart disease Social History (Updated 10/26/24 @ 10:30 by Bk Bahena CRNA) Smoking Status: Never smoker alcohol intake: never substance use type: denies use current occupational status: retired Travel in the last 8 weeks: None household members: spouse housing: house caffeine: Yes Have you lived/traveled outside [place] in past 30 days?: No Contact w/someone who lives/traveled outside US past 30 days?: No Exposure to someone with infectious disease in past 14 days?: No Do you have a fever (greater than 100.4 F or 38 C)?: No Have you tested positive for COVID-19: No Exposed to someone with COVID-19 in past 14 days?: No Do you have a sore throat?: No Do you have a cough?: No Do you have any weakness?: No Do you have any diarrhea?: No Are you experiencing any unusual bleeding?: No Do you have any muscle aches/pain?: No Do you have any abdominal pain?: No Are you experiencing loss of taste or smell?: No Other Medical History Have you received the Flu Vaccine for this season: No Have you received the Pneumonia Vaccine: No <Maria Del Rosario Elliott MD - Last Filed: 11/26/24 07:16> ROS Obtained: Yes Systems reviewed as appropriate & no additional complaints except as documented per HPI Physical Exam <Maria Del Rosario Elliott MD - Last Filed: 11/26/24 07:16> General General appearance: alert and in no apparent distress Head Head exam: atraumatic and normocephalic Eye Eye exam: Present PERRL and EOMI ENT ENT exam: Present mucous membranes moist Neck Neck exam: Present normal inspection and full ROM Chest Chest inspection: Present symmetric chest wall rise Respiratory Respiratory exam: Present normal lung sounds bilaterally; Absent respiratory distress, wheezes or stridor Cardiovascular Cardiovascular exam: Present regular rate and normal rhythm Abdominal Exam Abdominal exam: Present soft; Absent distention or tenderness Extremities Exam Extremities exam: Present full ROM and other (Right upper extremity in brace due to previous fracture, left shoulder tenderness to palpation right at the glenohumeral joint, neurovascularly intact, no deformity, no significant swelling); Absent edema Neurological Exam Neurological exam: Present alert and oriented X3; Absent motor sensory deficit Psychiatric Psychiatric exam: Present normal affect and normal mood Skin Skin exam: Present warm and dry HEART Score <Maria Del Rosario Elliott MD - Last Filed: 11/26/24 07:16> HEART Score HEART Score assessment performed?: Yes History (anamnesis): Slightly suspicious ECG: Non-specific disturbance Age: 45-65 years Risk factors: 1-2 risk factors Troponin: </= normal limit HEART Score: 3 <Beth Arce DO - Last Filed: 11/26/24 16:12> HEART Score HEART Score: 3 Critical Care <Maria Del Rosario Elliott MD - Last Filed: 11/26/24 07:16> Critical Care Time Critical Care Time: No Medical Decision Making <Maria Del Rosario Elliott MD - Last Filed: 11/26/24 07:16> Medical Records Medical records reviewed: Yes I reviewed the patient's medical records. Jose Ramon Inquiry Pt receiving controlled substance: No Vital Signs Vital Signs: 11/26/24 03:49 11/26/24 05:00 11/26/24 05:30 Temperature 98.7 F Temperature Source Oral Pulse Rate 65 60 Pulse Rate [Right Brachial] 71 Respiratory Rate 18 Blood Pressure 134/82 121/68 Blood Pressure [Right Arm] 147/66 H Blood Pressure Mean 113 102 Blood Pressure Mean [Right Arm] 93 Blood Pressure Source Blood Pressure Source [Right Arm] Automatic Cuff Blood Pressure Position [Right Arm] Supine 02 Sat by Pulse Oximetry 97 Oxygen Delivery Method Room Air 11/26/24 06:00 11/26/24 06:30 11/26/24 07:01 Temperature Temperature Source Pulse Rate 58 L 56 L 60 Pulse Rate [Right Brachial] Respiratory Rate Blood Pressure 137/75 121/78 106/52 L Blood Pressure [Right Arm] Blood Pressure Mean 110 101 70 Blood Pressure Mean [Right Arm] Blood Pressure Source Blood Pressure Source [Right Arm] Blood Pressure Position [Right Arm] 02 Sat by Pulse Oximetry Oxygen Delivery Method 11/26/24 07:30 11/26/24 07:53 Temperature 98.7 F Temperature Source Oral Pulse Rate 58 L 57 L Pulse Rate [Right Brachial] Respiratory Rate 15 19 Blood Pressure 95/57 L 99/57 L Blood Pressure [Right Arm] Blood Pressure Mean 71 Blood Pressure Mean [Right Arm] Blood Pressure Source Automatic Cuff Blood Pressure Source [Right Arm] Blood Pressure Position [Right Arm] 02 Sat by Pulse Oximetry Oxygen Delivery Method Room Air Lab Data Labs: Lab Results 11/26/24 03:50: WBC 9.5, RBC 4.45, Hgb 11.6 L, Hct 37.8, MCV 84.9, MCH 26.1 L, M CHC 30.7 L, RDW 16.7, Plt Count 231, MPV 9.3, Neut % (Auto) 66.8, Lymph % (Auto) 22.9, Wheeler % (Auto) 8.2, Eos % (Auto) 1.4, Baso % (Auto) 0.2, Neut # (Auto) 6.4, Lymph # (Auto) 2.2, Wheeler # (Auto) 0.8, Eos # (Auto) 0.1, Baso # (Auto) 0.0, PT 9.9, INR 0.89 L, D-Dimer 0.65 H, Sodium 144, Potassium 4.2, Chloride 107, Carbon Dioxide 29, Anion Gap 12.2, BUN 17, Creatinine 1.00, Estimated Creat Clear 92, E stimated GFR 56 L, Est GFR ( Amer) 68, Glucose 118 H, Calcium 9.8, Total Bilirubin 0.2, AST 34, ALT 28, Alkaline Phosphatase 102, Troponin I < 0.01, NT-Pro-B Natriuret Pep 81.2, Total Protein 7.4, Albumin 4.2, Globulin 3.2, Albumin/Globulin Ratio 1.3, TSH 10.20 H, Free T4 0.80 11/26/24 03:55: HCV Ab MOE w/Rflx PCR Qn Negative 11/26/24 07:03: Troponin I < 0.01 11/26/24 : HIV Ag/Ab Combo Qual Negative 11/26/24 03:50 11/26/24 03:50 Response Orders (Tests/Meds): ED MEDICATIONS Discontinued Medications Generic Name Dose Route Start Last Admin Trade Name Freq PRN Reason Stop Dose Admin Acetaminophen 1,000 mg 11/26/24 04:26 11/26/24 04:43 Acetaminophen 500mg Tab PO 11/26/24 04:27 1,000 mg ONCE ONE Administration Aspirin 324 mg 11/26/24 04:07 11/26/24 04:12 Aspirin 81mg Chewable Tablet PO 11/26/24 04:08 324 mg ONCE ONE Administration Ketorolac Tromethamine 15 mg 11/26/24 04:26 11/26/24 04:41 Ketorolac 30mg/Ml Vial IM 11/26/24 04:27 Not Given ONCE ONE Ketorolac Tromethamine 15 mg 11/26/24 04:41 11/26/24 04:43 Ketorolac 30mg/Ml Vial IV 11/26/24 04:42 15 mg ONCE ONE Administration Nitroglycerin 0.4 mg 11/26/24 04:07 Nitroglycerin 0.4mg Sl Tablet SL 11/27/24 04:07 Q5MINP PRN Chest Pain Ondansetron HCl 4 mg 11/26/24 04:14 11/26/24 04:15 Ondansetron 4mg/2ml Vial IV 11/26/24 04:15 4 mg ONCE ONE Administration ORDERS Category Date Time Status XR chest portable Stat Exams 11/26/24 05:48 Completed XR shoulder LT min 2V Stat Exams 11/26/24 05:38 Completed Complete Blood Count Auto Diff Stat Lab 11/26/24 03:50 Completed Comprehensive Metabolic Panel Stat Lab 11/26/24 03:50 Completed D-Dimer Stat Lab 11/26/24 03:50 Completed Free T4 (Free Thyroxine) Stat Lab 11/26/24 03:50 Completed HIV Combo Stat Lab 11/26/24 Completed Hepatitis C Ab Qual. W/ RFX Stat Lab 11/26/24 03:55 Completed NT Pro Brain Natriuretic Pep. Stat Lab 11/26/24 03:50 Completed Prothrombin Time INR Stat Lab 11/26/24 03:50 Completed TSH [Thyroid Stimulating Hormone] Stat Lab 11/26/24 03:50 Completed Troponin I Q3H Lab 11/26/24 07:03 Completed Troponin I Stat Lab 11/26/24 03:50 Completed MDM Narrative Medical Decision Narrative: In summary, this 59-year-old female with comorbidities described in the HPI presents to the emergency department today with chest pain, left shoulder pain. On initial evaluation patient is hemodynamically stable, afebrile, she has tenderness to palpation of the glenohumeral joint on the left consistent with her known fracture, no deformity, crepitus, or swelling appreciated, neurovascularly intact, no other findings of injury on exam, cardiopulmonary exam benign, no peripheral edema, patient resting comfortably at this time. Differential diagnosis includes but is not limited to ACS, PE, left shoulder worsening fracture, dislocation, electrolyte abnormality, esophageal spasm, dehydration, among other. Based on these concerns, I ordered serum labs, cardiac workup, x-ray imaging of the chest and left shoulder. ECG personally interpreted demonstrates sinus rhythm, rate 68, right axis deviation, normal ME and QTc, no STEMI. Similar appearing compared to previous etiology. Patient received Toradol, Tylenol, aspirin, Zofran for treatment. Labs personally reviewed demonstrate no leukocytosis, mild anemia, PT/INR nonactionable, D-dimer 0.65, by years criteria PE is ruled out, CTA PE not indicated. CMP nonactionable, initial troponin undetectably low less than 0.01, patient's TSH is 10.2, free T4 normal at 0.8. Chest x-ray personally interpreted does not demonstrate acute intrathoracic abnormality. See radiology read for final interpretation. Left shoulder x-ray was personally interpreted and demonstrates humeral head fracture, I reviewed previous imaging from patient's initial encounter for these injuries, the fracture fragment appears stable compared to prior without significant displacement. No acute intervention indicated. Patient placed into ED observation at 0545 for serial troponin to rule out evolving IA and preclude unnecessary admission. Patient remains on the air brake man and has been frequently reassessed. In stable condition, no chest pain at this time. Patient handed off to Dr. Arce in stable condition pending repeat troponin. <Beth Arce, DO - Last Filed: 11/26/24 16:12> Vital Signs Vital Signs: 11/26/24 03:49 11/26/24 05:00 11/26/24 05:30 Temperature 98.7 F Temperature Source Oral Pulse Rate 65 60 Pulse Rate [Right Brachial] 71 Respiratory Rate 18 Blood Pressure 134/82 121/68 Blood Pressure [Right Arm] 147/66 H Blood Pressure Mean 113 102 Blood Pressure Mean [Right Arm] 93 Blood Pressure Source Blood Pressure Source [Right Arm] Automatic Cuff Blood Pressure Position [Right Arm] Supine 02 Sat by Pulse Oximetry 97 Oxygen Delivery Method Room Air 11/26/24 06:00 11/26/24 06:30 11/26/24 07:01 Temperature Temperature Source Pulse Rate 58 L 56 L 60 Pulse Rate [Right Brachial] Respiratory Rate Blood Pressure 137/75 121/78 106/52 L Blood Pressure [Right Arm] Blood Pressure Mean 110 101 70 Blood Pressure Mean [Right Arm] Blood Pressure Source Blood Pressure Source [Right Arm] Blood Pressure Position [Right Arm] 02 Sat by Pulse Oximetry Oxygen Delivery Method 11/26/24 07:30 11/26/24 07:53 Temperature 98.7 F Temperature Source Oral Pulse Rate 58 L 57 L Pulse Rate [Right Brachial] Respiratory Rate 15 19 Blood Pressure 95/57 L 99/57 L Blood Pressure [Right Arm] Blood Pressure Mean 71 Blood Pressure Mean [Right Arm] Blood Pressure Source Automatic Cuff Blood Pressure Source [Right Arm] Blood Pressure Position [Right Arm] 02 Sat by Pulse Oximetry Oxygen Delivery Method Room Air Lab Data Labs: Lab Results 11/26/24 03:50: WBC 9.5, RBC 4.45, Hgb 11.6 L, Hct 37.8, MCV 84.9, MCH 26.1 L, M CHC 30.7 L, RDW 16.7, Plt Count 231, MPV 9.3, Neut % (Auto) 66.8, Lymph % (Auto) 22.9, Wheeler % (Auto) 8.2, Eos % (Auto) 1.4, Baso % (Auto) 0.2, Neut # (Auto) 6.4, Lymph # (Auto) 2.2, Wheeler # (Auto) 0.8, Eos # (Auto) 0.1, Baso # (Auto) 0.0, PT 9.9, INR 0.89 L, D-Dimer 0.65 H, Sodium 144, Potassium 4.2, Chloride 107, Carbon Dioxide 29, Anion Gap 12.2, BUN 17, Creatinine 1.00, Estimated Creat Clear 92, E stimated GFR 56 L, Est GFR ( Amer) 68, Glucose 118 H, Calcium 9.8, Total Bilirubin 0.2, AST 34, ALT 28, Alkaline Phosphatase 102, Troponin I < 0.01, NT-Pro-B Natriuret Pep 81.2, Total Protein 7.4, Albumin 4.2, Globulin 3.2, Albumin/Globulin Ratio 1.3, TSH 10.20 H, Free T4 0.80 11/26/24 03:55: HCV Ab MOE w/Rflx PCR Qn Negative 11/26/24 07:03: Troponin I < 0.01 01/20/25 : HIV Ag/Ab Combo Qual Negative Response Orders (Tests/Meds): ED MEDICATIONS Discontinued Medications Generic Name Dose Route Start Last Admin Trade Name Freq PRN Reason Stop Dose Admin Acetaminophen 1,000 mg 11/26/24 04:26 11/26/24 04:43 Acetaminophen 500mg Tab PO 11/26/24 04:27 1,000 mg ONCE ONE Administration Aspirin 324 mg 11/26/24 04:07 11/26/24 04:12 Aspirin 81mg Chewable Tablet PO 11/26/24 04:08 324 mg ONCE ONE Administration Ketorolac Tromethamine 15 mg 11/26/24 04:26 11/26/24 04:41 Ketorolac 30mg/Ml Vial IM 11/26/24 04:27 Not Given ONCE ONE Ketorolac Tromethamine 15 mg 11/26/24 04:41 11/26/24 04:43 Ketorolac 30mg/Ml Vial IV 11/26/24 04:42 15 mg ONCE ONE Administration Nitroglycerin 0.4 mg 11/26/24 04:07 Nitroglycerin 0.4mg Sl Tablet SL 11/27/24 04:07 Q5MINP PRN Chest Pain Ondansetron HCl 4 mg 11/26/24 04:14 11/26/24 04:15 Ondansetron 4mg/2ml Vial IV 11/26/24 04:15 4 mg ONCE ONE Administration ORDERS Category Date Time Status XR chest portable Stat Exams 11/26/24 05:48 Completed XR shoulder LT min 2V Stat Exams 11/26/24 05:38 Completed Complete Blood Count Auto Diff Stat Lab 11/26/24 03:50 Completed Comprehensive Metabolic Panel Stat Lab 11/26/24 03:50 Completed D-Dimer Stat Lab 11/26/24 03:50 Completed Free T4 (Free Thyroxine) Stat Lab 11/26/24 03:50 Completed HIV Combo Stat Lab 11/26/24 Completed Hepatitis C Ab Qual. W/ RFX Stat Lab 11/26/24 03:55 Completed NT Pro Brain Natriuretic Pep. Stat Lab 11/26/24 03:50 Completed Prothrombin Time INR Stat Lab 11/26/24 03:50 Completed TSH [Thyroid Stimulating Hormone] Stat Lab 11/26/24 03:50 Completed Troponin I Q3H Lab 11/26/24 07:03 Completed Troponin I Stat Lab 11/26/24 03:50 Completed MDM Narrative Medical Decision Narrative: In summary, this 59-year-old female with comorbidities described in the HPI presents to the emergency department today with chest pain, left shoulder pain. On initial evaluation patient is hemodynamically stable, afebrile, she has tenderness to palpation of the glenohumeral joint on the left consistent with her known fracture, no deformity, crepitus, or swelling appreciated, neurovascularly intact, no other findings of injury on exam, cardiopulmonary exam benign, no peripheral edema, patient resting comfortably at this time. Differential diagnosis includes but is not limited to ACS, PE, left shoulder worsening fracture, dislocation, electrolyte abnormality, esophageal spasm, dehydration, among other. Based on these concerns, I ordered serum labs, cardiac workup, x-ray imaging of the chest and left shoulder. ECG personally interpreted demonstrates sinus rhythm, rate 68, right axis deviation, normal ME and QTc, no STEMI. Similar appearing compared to previous etiology. Patient received Toradol, Tylenol, aspirin, Zofran for treatment. Labs personally reviewed demonstrate no leukocytosis, mild anemia, PT/INR nonactionable, D-dimer 0.65, by years criteria PE is ruled out, CTA PE not indicated. CMP nonactionable, initial troponin undetectably low less than 0.01, patient's TSH is 10.2, free T4 normal at 0.8. Chest x-ray personally interpreted does not demonstrate acute intrathoracic abnormality. See radiology read for final interpretation. Left shoulder x-ray was personally interpreted and demonstrates humeral head fracture, I reviewed previous imaging from patient's initial encounter for these injuries, the fracture fragment appears stable compared to prior without significant displacement. No acute intervention indicated. Patient placed into ED observation at 0545 for serial troponin to rule out evolving IA and preclude unnecessary admission. Patient remains on the air brake man and has been frequently reassessed. In stable condition, no chest pain at this time. Patient handed off to Dr. Arce in stable condition pending repeat troponin. DO Claude: I assumed care of the patient at 0700. On my assessment, she is lying in bed in no acute distress and is having no symptoms currently. Vitals are normal on cardiac telemetry. Second troponin resulted and was negative. Given this, I feel the patient is appropriate for discharge home. I gave instructions for close follow-up with cardiology as well as strict return precautions. Patient was discharged 0745 in stable condition after all questions were answered. Total time in ED observation was 2 hours.
--- NOTE | 2024-11-26 07:12 | PC.NURSE ---
Rounded on pt and her family. Pt is sleeping in bed, daughter at bedside and updated on POC, awaiting on troponin. No needs at this time.
[2024-11-26 07:44] LABS: Troponin I < 0.01 ng/ml (0.00-0.034)
--- NOTE | 2024-11-26 07:48 | PC.NURSE ---
Dr Arce at bedside
== END 2024-11-26 08:16 | disposition home or self-care (01) ==
PROVIDERS: Emergency Provider Emergency Medicine; PCP Physician Assistant
DX: S42.302A Unspecified fracture of shaft of humerus, left arm, initial encounter for closed fracture (principal); R07.9 Chest pain, unspecified; D64.9 Anemia, unspecified; M25.512 Pain in left shoulder; M79.602 Pain in left arm; W19.XXXA Unspecified fall, initial encounter
CPT/HCPCS: 71045; 73030; 80053; 83880; 84439; 84443; 84484; 85025; 85378; 85610; 86803; 87389; 93005; 96374; 96375; 99284; J1885; J2405

== ENCOUNTER 2024-12-04 09:58 | Outpatient (CLI) | payer MEDICARE, SELFPAY ==
--- NOTE | 2024-12-04 10:01 | XR_ITS ---
FINAL REPORT CLINICAL HISTORY: Lt Shoulder pain COMPARISON: None FINDINGS: LEFT SHOULDER 3 views of the left shoulder were obtained. There is healing fracture of the proximal left humerus. Fracture line involves the surgical and anatomic necks of the humerus. Mild hypertrophic changes are seen of the acromioclavicular joint. Soft tissues are unremarkable. IMPRESSION: Healing humeral fracture. Reviewed, Interpreted and Dictated by Jono Koch MD Transcribed by Linda Salas Authenticated and [facility]
--- NOTE | 2024-12-04 10:01 | XR_ITS ---
FINAL REPORT CLINICAL HISTORY: Rt wrist pain COMPARISON: 11/13/2024 FINDINGS: Two views of the right wrist were obtained. There is a sideplate and screws securing the distal radius. There is an ununited fracture of the ulnar styloid. Mild joint space narrowing is noted of the radiocarpal joint. There is no acute soft tissue abnormality. IMPRESSION: Postoperative and degenerative changes. Ununited ulnar styloid fracture. No acute bony abnormality identified. Reviewed, Interpreted and Dictated by Jono Koch MD Transcribed by Linda Salas Authenticated and [facility]
== END 2024-12-04 23:59 | disposition home or self-care (01) ==
LOC: RAD 09:59
PROVIDERS: PCP Physician Assistant; Visit Provider Physician Assistant Surgical
DX: M25.531 Pain in right wrist (principal); M25.512 Pain in left shoulder; S42.302A Unspecified fracture of shaft of humerus, left arm, initial encounter for closed fracture
CPT/HCPCS: 73030; 73100

== ENCOUNTER 2024-12-06 08:42 | Outpatient (CLI) | payer MEDICARE, SELFPAY ==
--- NOTE | 2024-12-06 09:22 | XR_ITS ---
FINAL REPORT TECHNIQUE: Bone densitometry calculations of the lumbar spine and left hip were obtained. CLINICAL HISTORY: SCREENING COMPARISON: None FINDINGS: Using L1-4, the bone mineral density of the spine is 1.044 g/cm2, corresponding to T-score of 0.0. Using the left hip, the bone mineral density of the femoral neck is 0.677 g/cm2, corresponding to a T-score of -1.6. Using the right hip, the bone mineral density of the femoral neck is 0.731 g/cm?, corresponding to a T-score of -1.1. NOTE: T-score: Standard deviation compared with peak bone mass of young adult mean. *Following the recommendations of the International Society of Bone densitometry, classification of hip BMD is based on the lower of two T-scores; total hip or femoral neck. IMPRESSION: Diminished bone mineral density of the bilateral hips consistent with osteopenia. Normal bone mineral density of the lumbar spine. Reviewed, Interpreted and Dictated by Jono Koch MD Transcribed by Siena Velez Authenticated and [facility]
== END 2024-12-06 23:59 | disposition home or self-care (01) ==
LOC: RAD 08:43
PROVIDERS: PCP Physician Assistant; Visit Provider Physician Assistant
DX: M85.88 Other specified disorders of bone density and structure, other site (principal); S62.91XA Unspecified fracture of right hand, initial encounter for closed fracture
CPT/HCPCS: 77080

== ENCOUNTER 2024-12-07 09:52 | Emergency (ER) | payer MEDICARE, SELFPAY ==
[2024-12-07 10:45] VITALS: BP 130/61; PULSE 68; RESP 23; TEMP 36.8; O2SAT 97; BMI 34.5
--- NOTE | 2024-12-07 11:06 | ED_ITS ---
Discharge Plan Disposition Patient Disposition: Home, Self-Care Condition: Good Prescriptions Prescriptions: New benzonatate 100 mg capsule 100 mg PO TIDP PRN (Reason: Cough) Qty: 30 0RF No Action Vraylar 1.5 mg capsule 1.5 mg PO DAILY Qty: 30 2RF mirtazapine [Remeron] 30 mg tablet 30 mg PO HS Qty: 30 2RF atorvastatin 10 mg tablet 10 mg PO HS Qty: 30 1RF cholecalciferol (vitamin D3) 1,250 mcg (50,000 unit) capsule 1,250 mcg PO WEEKLY Qty: 12 2RF levothyroxine [Synthroid] 50 mcg tablet 50 mcg PO DAILY Qty: 14 0RF Rx Instructions: 50 mcg's for 2 weeks and then 100 mcg's after that levothyroxine [Synthroid] 100 mcg tablet 100 mcg PO DAILY Qty: 90 0RF Rx Instructions: 50 mcg's for 14 days and 100 mcg's after that Ubrelvy 100 mg tablet 100 mg PO ONCE PRN (Reason: migraine headache) Qty: 16 2RF hydrocodone-acetaminophen 5-325 mg tablet 1 tab PO Q8H PRN (Reason: pain) Qty: 12 0RF hydrocodone-acetaminophen 5-325 mg tablet 1 tab PO Q6H PRN (Reason: post op pain) Qty: 40 0RF Referrals Follow up/Referrals: Sobeida Richmond PA [Primary Care Provider] - See instructions Activity Restrictions/Add. Instructions Additional Instructions/Restrictions: Drink plenty of fluids. Take tylenol or ibuprofen for pain or fever. Take the medications as directed. Follow up with your regular doctor. GO TO THE ER FOR ANY WORSENING SYMPTOMS Clinical Impressions Clinical Impression: Acute viral syndrome Instructions Patient Instructions: DI for Viral Syndrome, Benzonatate Print Language Print Language: Tamazight Discharge ED Provider: Jesus Curtis [facility] [place] HPI General Stated complaint: congestion, headache, body aches Mode of Arrival: Ambulatory Source of Information: Patient Limitations: No Limitations Time Seen by Provider: 12/07/24 11:01 Description of Symptoms (Recalled from Triage Doc. by RN): PATIENT C/O HEADACHE, VOMITING, HEAD CONGESTION, FEVER, AND CHILLS THAT STARTED LAST NIGHT HEENT Symptoms (Recalled from RN notes): Yes Resp Symptoms (Recalled from RN notes): No Skin Symptoms (Recalled from RN notes): No MS Symptoms (Recalled from RN notes): No Functional Status (Recalled from RN notes): WNL Related Data Previous Rx's ?Medication ?Instructions ?Recorded cariprazine 1.5 mg capsule 1.5 mg PO DAILY #30 caps 12/28/23 (Vraylar) mirtazapine 30 mg tablet (Remeron) 30 mg PO HS #30 tabs 12/28/23 atorvastatin 10 mg tablet 10 mg PO HS Cholesterol #30 tabs 01/04/24 cholecalciferol (vitamin D3) 1,250 1,250 mcg PO WEEKLY vitamin d 01/04/24 mcg (50,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 #12 caps levothyroxine 100 mcg tablet 100 mcg PO DAILY thyroid #90 tabs 01/04/24 (Synthroid) levothyroxine 50 mcg tablet 50 mcg PO DAILY thyroid #14 tabs 01/04/24 (Synthroid) ubrogepant 100 mg tablet (Ubrelvy) 100 mg PO ONCE PRN migraine 01/10/24 headache #16 tabs hydrocodone 5 mg-acetaminophen 325 1 tab PO Q8H PRN pain #12 tabs 10/20/24 mg tablet hydrocodone 5 mg-acetaminophen 325 1 tab PO Q6H PRN post op pain #40 10/26/24 mg tablet tabs benzonatate 100 mg capsule 100 mg PO TIDP PRN Cough #30 caps 12/07/24 Allergies Allergy/AdvReac Type Severity Reaction Status Date / Time sumatriptan (From IMITREX) Allergy Severe S-DROP IN Verified 12/04/24 11:05 B/P Penicillins (PENICILLINS) Allergy Intermediate I-HIVES Verified 12/04/24 11:05 topiramate (From Topamax) Allergy Intermediate S-DROP IN Verified 12/04/24 11:05 B/P Worker's Comp Is this a Worker's Comp case?: No [facility] Disclaimer: The information contained in this section may have been updated after the patient was seen, as this information can be updated by other users. Medical History Depression Anxiety Hyperlipidemia Hypertension Hypothyroidism Concussion Fracture of lumbar spine Surgical History delivery delivered H/O thyroidectomy History of facial surgery Family History Other Family history of diabetes mellitus Family history of heart disease Social History Smoking Status: Never smoker alcohol intake: never substance use type: denies use current occupational status: retired Travel in the last 8 weeks: None household members: spouse housing: house caffeine: Yes Have you lived/traveled outside [place] in past 30 days?: No Contact w/someone who lives/traveled outside US past 30 days?: No Exposure to someone with infectious disease in past 14 days?: No Do you have a fever (greater than 100.4 F or 38 C)?: No Have you tested positive for COVID-19: No Exposed to someone with COVID-19 in past 14 days?: No Do you have a sore throat?: No Do you have a cough?: No Do you have any weakness?: No Do you have any diarrhea?: No Are you experiencing any unusual bleeding?: No Do you have any muscle aches/pain?: Yes Do you have any abdominal pain?: No Are you experiencing loss of taste or smell?: Yes ROS Obtained: Yes All systems reviewed & no additional complaints except as documented Constitutional Constitutional: Reports chills and Reports fever(s) Eyes Eyes: Denies eye discharge ENT Ears, Nose, Mouth, and Throat: Reports as per HPI Cardiovascular Cardiovascular: Denies chest pain Respiratory Respiratory: Denies chest congestion and Reports cough Gastrointestinal Gastrointestingal: Reports nausea; Denies abdominal pain, constipation, cramping, diarrhea or vomiting Musculoskeletal Musculoskeletal: Denies arthralgias Integumentary/Breasts Skin/Breast: Denies rash Neurologic Neurologic: Denies paresthesias Physical Exam General General appearance: alert and in no apparent distress Head Head exam: atraumatic, normocephalic and normal inspection Eye Eye exam: Present normal appearance, PERRL and EOMI ENT ENT exam: Present normal exam, normal oropharynx, mucous membranes moist, TM's normal bilaterally and normal external ear exam Neck Neck exam: Present normal inspection, full ROM and trachea midline; Absent meningismus or lymphadenopathy Chest Chest inspection: Present normal inspection and symmetric chest wall rise; Absent tenderness Respiratory Respiratory exam: Present normal lung sounds bilaterally; Absent respiratory distress Cardiovascular Cardiovascular exam: Present regular rate and normal rhythm; Absent JVD Abdominal Exam Abdominal exam: Present soft and normal bowel sounds; Absent distention, tenderness or guarding Extremities Exam Extremities exam: Present normal inspection, full ROM and normal capillary refill; Absent calf tenderness Back Exam Back exam: Present normal inspection; Absent tenderness Neurological Exam Neurological exam: Present alert and oriented X3 Psychiatric Psychiatric exam: Present normal affect and normal mood Skin Skin exam: Present warm, dry, intact and normal color Lymphatic Lymphatic Findings: no adenopathy Medical Decision Making Medical Records Medical records reviewed: No I reviewed the patient's medical records. Screening: Per USPSTF and CDC recommendations, given the prevalence of disease in our region, it is our hospital?s policy to screen for HIV and viral Hepatitis for all patients aged 18 and over and those with ongoing risk factors. Jose Ramon Inquiry Pt receiving controlled substance: No Vital Signs: 12/07/24 10:45 Temperature 98.2 F Temperature Source Oral Pulse Rate [Right Brachial] 68 Respiratory Rate 23 Blood Pressure [Right Arm] 130/61 Blood Pressure Mean [Right Arm] 84 Blood Pressure Source [Right Arm] Automatic Cuff Blood Pressure Position [Right Arm] Sitting 02 Sat by Pulse Oximetry 97 Oxygen Delivery Method Room Air
[2024-12-07 11:32] LABS: UTC Strep Screen (Rapid) Negative (Negative)
[2024-12-07 11:33] LABS: UTC Influenza A Antigen Negative (Negative); UTC Influenza B Antigen Negative (Negative)
[2024-12-07 11:52] VITALS: BP 130/61; PULSE 68; RESP 23; TEMP 36.8; O2SAT 97
[2024-12-07 12:00] LABS: Coronavirus 19, PCR Not Detected (NotDetected); Human Rhinovirus Not Detected (NotDetected); Influenza A, PCR Not Detected (NotDetected); Influenza B, PCR Not Detected (NotDetected); Respiratory Syncytial Virus Not Detected (NotDetected)
== END 2024-12-07 11:57 | disposition home or self-care (01) ==
PROVIDERS: Emergency Provider Nurse Practitioner Family; PCP Physician Assistant
DX: B34.9 Viral infection, unspecified (principal)
CPT/HCPCS: 87631; 87804; 87880; 99213; G0381

== ENCOUNTER 2025-01-01 09:14 | Outpatient (CLI) | payer MEDICARE, SELFPAY ==
--- NOTE | 2025-01-01 09:18 | XR_ITS ---
FINAL REPORT CLINICAL HISTORY: Right wrist fx COMPARISON: 12/04/2024 FINDINGS: RIGHT WRIST THREE VIEW Three views show post ORIF changes of the distal radius. The hardware is intact, obscuring radial fracture lines. There is no evidence of displacement. The ulnar styloid process fracture is again noted. The joint is intact. IMPRESSION: No significant change. Reviewed, Interpreted and Dictated by Donis Deng MD Transcribed by Linda Salas Authenticated and [facility]
--- NOTE | 2025-01-01 09:18 | XR_ITS ---
FINAL REPORT CLINICAL HISTORY: Left Shoulder fx COMPARISON: 12/04/2024 FINDINGS: Two views of the left shoulder show a mildly displaced fracture of the greater tuberosity which appears healed. There is sclerosis of the humeral neck indicating healing humeral neck fracture. No residual fracture line is seen. The joint is intact. IMPRESSION: Significant further healing of the proximal humeral fracture. Reviewed, Interpreted and Dictated by Donis Deng MD Transcribed by Linda Salas Authenticated and [facility]
== END 2025-01-01 23:59 | disposition home or self-care (01) ==
LOC: RAD 09:15
PROVIDERS: PCP Physician Assistant; Visit Provider Physician Assistant Surgical
DX: M25.531 Pain in right wrist (principal); S62.101A Fracture of unspecified carpal bone, right wrist, initial encounter for closed fracture; M25.512 Pain in left shoulder; S42.302A Unspecified fracture of shaft of humerus, left arm, initial encounter for closed fracture
CPT/HCPCS: 73030; 73110

== ENCOUNTER 2025-03-13 12:01 | Emergency (ER) | payer MEDICARE, SELFPAY ==
[2025-03-13 12:08] VITALS: BP 116/68; PULSE 77; RESP 20; TEMP 36.8; O2SAT 96; BMI 32.9
--- NOTE | 2025-03-13 12:11 | XR_ITS ---
FINAL REPORT CLINICAL HISTORY: fall, pain COMPARISON: None FINDINGS: AP and lateral views of the right tibia and fibula were obtained. There is no prior exam for comparison. There is no acute fracture of the right tibia or fibula. The knee and ankle appear intact. The soft tissues are normal. IMPRESSION: No acute osseous abnormality of the right tibia or fibula. Reviewed, Interpreted and Dictated by Meena Santana MD Transcribed by Siena Velez Authenticated and [facility]
--- NOTE | 2025-03-13 12:11 | XR_ITS ---
FINAL REPORT CLINICAL HISTORY: fall, pain COMPARISON: None FINDINGS: AP, oblique, and lateral views of the right ankle were obtained. There is no fracture or dislocation. Mild degenerative joint disease is noted. The ankle mortise is intact. Mild lateral soft tissue swelling is present. IMPRESSION: No acute osseous abnormality of the right ankle. Mild degenerative joint disease and mild lateral soft tissue swelling. Reviewed, Interpreted and Dictated by Meena Santana MD Transcribed by Siena Velez Authenticated and [facility]
--- NOTE | 2025-03-13 12:11 | XR_ITS ---
FINAL REPORT CLINICAL HISTORY: fall, pain COMPARISON: None FINDINGS: AP, oblique and lateral views of the right foot were obtained. There is no acute fracture or dislocation. There is a chronic fracture deformity of the second proximal phalanx. Mild degenerative joint disease is present in the midfoot. Soft tissues are unremarkable. IMPRESSION: No acute osseous abnormality of the right foot. Mild degenerative joint disease in the midfoot, with a chronic fracture deformity of the second proximal phalanx. Reviewed, Interpreted and Dictated by Meena Santana MD Transcribed by iSena Velez Authenticated and [facility]
[2025-03-13 12:15] VITALS: BP 116/68; PULSE 73; O2SAT 96
[2025-03-13] MEDS: ONDANSETRON 4MG ODT 4 MG SL (12:19)
[2025-03-13] MEDS: OXYCODONE 5MG IMMEDIATE RELEASE TABLET 5 MG PO (12:20)
--- NOTE | 2025-03-13 12:23 | ED_ITS ---
Discharge Plan Disposition Patient Disposition: Home, Self-Care Condition: Good Prescriptions Prescriptions: No Action Vraylar 1.5 mg capsule 1.5 mg PO DAILY Qty: 30 2RF mirtazapine [Remeron] 30 mg tablet 30 mg PO HS Qty: 30 2RF atorvastatin 10 mg tablet 10 mg PO HS Qty: 30 1RF cholecalciferol (vitamin D3) 1,250 mcg (50,000 unit) capsule 1,250 mcg PO WEEKLY Qty: 12 2RF levothyroxine [Synthroid] 50 mcg tablet 50 mcg PO DAILY Qty: 14 0RF Rx Instructions: 50 mcg's for 2 weeks and then 100 mcg's after that levothyroxine [Synthroid] 100 mcg tablet 100 mcg PO DAILY Qty: 90 0RF Rx Instructions: 50 mcg's for 14 days and 100 mcg's after that Ubrelvy 100 mg tablet 100 mg PO ONCE PRN (Reason: migraine headache) Qty: 16 2RF benzonatate 100 mg capsule 100 mg PO TIDP PRN (Reason: Cough) Qty: 30 0RF hydrocodone-acetaminophen 5-325 mg tablet 1 tab PO Q8H PRN (Reason: pain) Qty: 12 0RF hydrocodone-acetaminophen 5-325 mg tablet 1 tab PO Q6H PRN (Reason: post op pain) Qty: 40 0RF Referrals Follow up/Referrals: Sobeida Richmond PA [Primary Care Provider] - See instructions Wei Peterson DO [Staff Physician] - See instructions Activity Restrictions/Add. Instructions Additional Instructions/Restrictions: You were evaluated in the emergency department today. At this time, x-rays do not demonstrate any acute broken bones, so we feel you likely have an ankle sprain. We are providing you with crutches and walking boot to help offload stress on your ankle and help with getting around. Please follow-up close with your primary care provider and/or orthopedics if continue to have pain, as sometimes these can be missed on initial x-ray. Take Tylenol and ibuprofen at home as needed for pain. Keep your leg elevated, and ice to reduce pain and swelling. Return to the emergency department for new or worsening symptoms. Clinical Impressions Clinical Impression: Right ankle sprain Stand Alone Forms Stand Alone Forms: Work/School Release Instructions Patient Instructions: DI for Ankle Sprain, DI for Acute Pain -- Adult, DI for Ankle Pain Print Language Print Language: Chinese Discharge ED Provider: Beth Arce General Adult HPI General Chief complaint: Extremity Injury, Lower Stated complaint: [id number], Pain and swelling R ankle Time Seen by Provider: 03/13/25 12:03 Mode of Arrival: Ambulatory Source of Information: Patient and Relative Description of Symptoms (Recalled from ER Triage Doc. by RN): pt tripped going into the bathroom this morning at 0630 and is having right ankle pain and swelling, pt has had no otc meds this morning History of Present Illness HPI narrative: This patient is a 60-year-old female with a history of hypertension, hyperlipidemia, hypothyroidism presenting to the emergency department for evaluation with concern for right ankle pain after mechanical ground-level fall. Patient states that she tripped going to the bathroom this morning around 6:30 AM, injuring her right ankle. She fell but did not hit her head or lose consciousness. No pain elsewhere aside from her right ankle. She tried icing it at home without good improvement of the pain. She has not been able to bear weight since injury. Related Data Previous Rx's ?Medication ?Instructions ?Recorded cariprazine 1.5 mg capsule 1.5 mg PO DAILY #30 caps 12/28/23 (Vraylar) mirtazapine 30 mg tablet (Remeron) 30 mg PO HS #30 tabs 12/28/23 atorvastatin 10 mg tablet 10 mg PO HS Cholesterol #30 tabs 01/04/24 cholecalciferol (vitamin D3) 1,250 1,250 mcg PO WEEKLY vitamin d 01/04/24 mcg (50,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 #12 caps levothyroxine 100 mcg tablet 100 mcg PO DAILY thyroid #90 tabs 01/04/24 (Synthroid) levothyroxine 50 mcg tablet 50 mcg PO DAILY thyroid #14 tabs 01/04/24 (Synthroid) ubrogepant 100 mg tablet (Ubrelvy) 100 mg PO ONCE PRN migraine 01/10/24 headache #16 tabs hydrocodone 5 mg-acetaminophen 325 1 tab PO Q8H PRN pain #12 tabs 10/20/24 mg tablet hydrocodone 5 mg-acetaminophen 325 1 tab PO Q6H PRN post op pain #40 10/26/24 mg tablet tabs benzonatate 100 mg capsule 100 mg PO TIDP PRN Cough #30 caps 12/07/24 Allergies Allergy/AdvReac Type Severity Reaction Status Date / Time sumatriptan (From IMITREX) Allergy Severe S-DROP IN Verified 01/01/25 09:50 B/P Penicillins (PENICILLINS) Allergy Intermediate I-HIVES Verified 01/01/25 09:50 topiramate (From Topamax) Allergy Intermediate S-DROP IN Verified 01/01/25 09:50 B/P PFSH PFS Disclaimer: The information contained in this section may have been updated after the patient was seen, as this information can be updated by other users. Medical History Depression Anxiety Hyperlipidemia Hypertension Hypothyroidism Concussion Fracture of lumbar spine Surgical History delivery delivered H/O thyroidectomy History of facial surgery Family History Other Family history of diabetes mellitus Family history of heart disease Social History Smoking Status: Never smoker alcohol intake: never substance use type: denies use current occupational status: retired Travel in the last 8 weeks?: None household members: spouse housing: house caffeine: Yes Have you lived/traveled outside US in past 30 days?: No Contact w/someone who lives/traveled outside US past 30 days?: No Exposure to someone with infectious disease in past 14 days?: No Do you have a fever (greater than 100.4 F or 38 C)?: No Have you tested positive for COVID-19?: No Exposed to someone with COVID-19 in past 14 days?: No Do you have a sore throat?: No Do you have a cough?: No Do you have any weakness?: No Do you have any diarrhea?: No Are you experiencing any unusual bleeding?: No Do you have any muscle aches/pain?: No Do you have any abdominal pain?: No Are you experiencing loss of taste or smell?: No Other Medical History Have you received the Flu Vaccine for this season: No Have you received the Pneumonia Vaccine: No ROS Obtained: Yes All systems reviewed & no additional complaints except as documented Physical Exam General General appearance: alert and in no apparent distress Head Head exam: atraumatic and normocephalic Eye Eye exam: Present normal appearance, PERRL and EOMI ENT ENT exam: Present normal exam, normal oropharynx, mucous membranes moist and normal external ear exam Neck Neck exam: Present normal inspection, full ROM and trachea midline; Absent tenderness Chest Chest inspection: Present normal inspection and symmetric chest wall rise; Absent tenderness Respiratory Respiratory exam: Present normal lung sounds bilaterally; Absent respiratory distress, wheezes, stridor or accessory muscle use Cardiovascular Cardiovascular exam: Present regular rate and normal rhythm Abdominal Exam Abdominal exam: Present soft; Absent distention, tenderness or guarding Extremities Exam Extremities exam: Present full ROM, tenderness, normal capillary refill and other (Tenderness to palpation of the right ankle joint. Neurovascularly intact distally with good pulses and sensation); Absent edema Back Exam Back exam: Present normal inspection and full ROM; Absent tenderness Neurological Exam Neurological exam: Present alert, oriented X3, CN II-XII intact and normal gait; Absent motor sensory deficit Psychiatric Psychiatric exam: Present normal affect and normal mood Skin Skin exam: Present warm and dry Medical Decision Making Medical Records Medical records reviewed: Yes I reviewed the patient's medical records. Screening: Per USPSTF and CDC recommendations, given the prevalence of disease in our region, it is our hospital?s policy to screen for HIV and viral Hepatitis for all patients aged 18 and over and those with ongoing risk factors. Jose Ramon Inquiry Pt receiving controlled substance: No Vital Signs: 03/13/25 12:08 03/13/25 12:15 03/13/25 12:30 Temperature 98.2 F Temperature Source Oral Pulse Rate 73 78 Pulse Rate [Left Radial] 77 Respiratory Rate 20 Blood Pressure 116/68 122/65 Blood Pressure [Right Arm] 116/68 Blood Pressure Mean 77 Blood Pressure Mean [Right Arm] 84 02 Sat by Pulse Oximetry 96 96 95 Oxygen Delivery Method Room Air Room Air Room Air 03/13/25 13:00 03/13/25 13:31 Temperature 98.2 F Temperature Source Pulse Rate 80 79 Pulse Rate [Left Radial] Respiratory Rate 20 Blood Pressure 121/65 121/65 Blood Pressure [Right Arm] Blood Pressure Mean Blood Pressure Mean [Right Arm] 02 Sat by Pulse Oximetry 96 Oxygen Delivery Method Room Air Room Air Lab Data Lab results reviewed: Yes I reviewed the patient's lab results. Orders (Tests/Meds): ED MEDICATIONS Discontinued Medications Generic Name Dose Route Start Last Admin Trade Name Sharhzad PRN Reason Stop Dose Admin Ondansetron HCl 4 mg 03/13/25 12:11 03/13/25 12:19 Ondansetron 4mg Odt SL 03/13/25 12:12 4 mg ONCE ONE Administration Oxycodone HCl 5 mg 03/13/25 12:12 03/13/25 12:20 Oxycodone 5mg Immediate Release Tablet PO 03/13/25 12:13 5 mg ONCE ONE Administration ORDERS Category Date Time Status Ankle XR -Right minimum 3 Views [XR ankle RT min 3V] Exams 03/13/25 12:11 Completed Stat Foot XR right minimum 3 views [XR foot RT min 3V] Stat Exams 03/13/25 12:11 Completed Tibia/fibula XR right 2 views [XR tibia fibula RT 2V] Exams 03/13/25 12:11 Completed Stat Medical Decision Narrative: In summary, this patient is a 60-year-old female presenting to the Emergency Department for evaluation of right ankle pain after mechanical ground-level fall. Differential diagnoses considered include but are not limited to fracture, contusion, strain/sprain, polytrauma. Ruling out the most morbid conditions drove assessment. It should be noted patient's history includes hypertension, hyperlipidemia, hypothyroidism which may not be at goal therapy. This complicates all aspects of care by increasing patient's risk for morbidity. I reviewed patient's past medical records and noted prior evaluations for humerus and distal radius fractures. On exam, the patient is lying in bed in no acute distress. She does have tenderness palpation and swelling of the right ankle joint with no open wounds. She is neurovascularly intact distally. No other traumatic injuries noted on exam. Workup included x-rays of the right ankle, foot, and tib-fib. She was given oral oxycodone and Zofran for symptomatic improvement.. I independently interpreted x-ray prior to the radiologist read and noted no acute fracture. Please see their read for final interpretation. At this time, patient does not have any fracture noted on x-ray but she is having significant difficulty ambulating and bearing weight on her right lower extremity, so she was placed in a walking boot and given crutches. She tolerated this well and is able to get around now. At this time, I feel that she is appropriate for discharge with strict return precautions and instructions for close follow-up with PCP/Ortho as needed. Patient was discharged after all questions were answered Critical Care Critical Care Time Critical Care Time: No
[2025-03-13 12:30] VITALS: BP 122/65; PULSE 78; O2SAT 95
[2025-03-13 13:00] VITALS: BP 121/65; PULSE 80; O2SAT 96
[2025-03-13 13:31] VITALS: BP 121/65; PULSE 79; RESP 20; TEMP 36.8; O2SAT 97
== END 2025-03-13 13:32 | disposition home or self-care (01) ==
PROVIDERS: Emergency Provider Emergency Medicine; PCP Physician Assistant
DX: S93.401A Sprain of unspecified ligament of right ankle, initial encounter (principal); M25.571 Pain in right ankle and joints of right foot; W01.10XA Fall on same level from slipping, tripping and stumbling with subsequent striking against unspecified object, initial encounter
CPT/HCPCS: 73590; 73610; 73630; 99284; Q0162

== ENCOUNTER 2025-04-11 18:17 | Inpatient (IN) | payer MEDICARE, SELFPAY ==
[2025-04-11] VITALS (12 sets, daily range): BP systolic 84–106; BP diastolic 46–66; PULSE 79–128; RESP 13–20; TEMP 36.6–36.7; O2SAT 95–99; BMI 30.7; BMI 30.1
[2025-04-11 18:29] LABS: POC Glucose,Bedside 253 (70-110)
--- NOTE | 2025-04-11 18:31 | ED_ITS ---
Discharge Plan Disposition Patient Disposition: Admitted Prescriptions Prescriptions: No Action Vraylar 1.5 mg capsule 1.5 mg PO DAILY Qty: 30 2RF mirtazapine [Remeron] 30 mg tablet 30 mg PO HS Qty: 30 2RF atorvastatin 10 mg tablet 10 mg PO HS Qty: 30 1RF cholecalciferol (vitamin D3) 1,250 mcg (50,000 unit) capsule 1,250 mcg PO WEEKLY Qty: 12 2RF levothyroxine [Synthroid] 50 mcg tablet 50 mcg PO DAILY Qty: 14 0RF Rx Instructions: 50 mcg's for 2 weeks and then 100 mcg's after that levothyroxine [Synthroid] 100 mcg tablet 100 mcg PO DAILY Qty: 90 0RF Rx Instructions: 50 mcg's for 14 days and 100 mcg's after that Ubrelvy 100 mg tablet 100 mg PO ONCE PRN (Reason: migraine headache) Qty: 16 2RF benzonatate 100 mg capsule 100 mg PO TIDP PRN (Reason: Cough) Qty: 30 0RF hydrocodone-acetaminophen 5-325 mg tablet 1 tab PO Q8H PRN (Reason: pain) Qty: 12 0RF hydrocodone-acetaminophen 5-325 mg tablet 1 tab PO Q6H PRN (Reason: post op pain) Qty: 40 0RF Referrals Follow up/Referrals: Sobeida Richmond PA [Primary Care Provider, Medical] - See instructions Clinical Impressions Clinical Impression: Sepsis without septic shock, Acute nontraumatic kidney injury, Hypomagnesemia Urinary tract infection Qualifiers: Urinary tract infection type: site unspecified Hematuria presence: with hematuria Qualified Code(s): N39.0 - Urinary tract infection, site not specified Print Language Print Language: Austrian Discharge ED Provider: Luis Armando Sauer General Adult HPI <TONY Vaca - Last Filed: 04/11/25 21:35> General Chief complaint: Dizziness Stated complaint: LBP,High HR,Dizziness,Vomiting Time Seen by Provider: 04/11/25 18:31 Mode of Arrival: Ambulatory Source of Information: Patient Description of Symptoms (Recalled from ER Triage Doc. by RN): PT presents for evaluation of SOA, dizziness, and vomiting. Pt referred to ED from Jacqui Richmond APRN r/t low BP of 100/60. FSBS of 253 in triage. History of Present Illness HPI narrative: Patient presents for evaluation of 3-week history of vomiting with no diarrhea, dizziness and lightheadedness especially when standing and headache. She went to her PCP today who noted that she had a significantly low blood pressure and high heart rate. Patient was recently diagnosed as a diabetic and started on metformin. She currently denies chest pain fever chills hemoptysis hematochezia melena hematemesis hematuria. Patient states her last bowel movement was yesterday. Related Data Previous Rx's ?Medication ?Instructions ?Recorded cariprazine 1.5 mg capsule 1.5 mg PO DAILY #30 caps (Vraylar) mirtazapine 30 mg tablet (Remeron) 30 mg PO HS #30 tab s 12/28/23 atorvastatin 10 mg tablet 10 mg PO HS Cholesterol #30 tabs 01/04/24 cholecalciferol (vitamin D3) 1,250 1,250 mcg PO WEEKLY vitamin d 01/04/24 mcg (50,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 #12 caps levothyroxine 100 mcg tablet 100 mcg PO DAILY thyroid #90 tabs 01/04/24 (Synthroid) levothyroxine 50 mcg tablet 50 mcg PO DAILY thyroid #1 4 tabs 01/04/24 (Synthroid) ubrogepant 100 mg tablet (Ubrelvy) 100 mg PO ONCE PRN migraine 01/10/24 headache #16 tabs hydrocodone 5 mg-acetaminophen 325 1 tab PO Q8H PRN pa in #12 tabs 10/20/24 mg tablet hydrocodone 5 mg-acetaminophen 325 1 tab PO Q6H PRN po st op pain #40 10/26/24 mg tablet tabs benzonatate 100 mg capsule 100 mg PO TIDP PRN Cough #3 0 caps 12/07/24 Allergies Allergy/AdvReac Type Severity Reaction Status Date / Time sumatriptan (From IMITREX) Allergy Severe S-DROP IN Verified 01/01/25 09:50 B/P Penicillins (PENICILLINS) Allergy Intermediate I-HIVES Verified 01/01/25 09:50 topiramate (From Topamax) Allergy Intermediate S-DROP IN Verified 01/01/25 09:50 B/P PFS <Anuj Fernandez PA - Last Filed: 04/11/25 21:35> REPLACED BY [facility] Disclaimer: The information contained in this section may have been updated after the patient was seen, as this information can be updated by other users. Medical History Depression Anxiety Hyperlipidemia Hypertension Hypothyroidism Concussion Fracture of lumbar spine Surgical History delivery delivered H/O thyroidectomy History of facial surgery Family History Other Family history of diabetes mellitus Family history of heart disease Social History Smoking Status: Never smoker alcohol intake: never substance use type: denies use current occupational status: retired Travel in the last 8 weeks?: None household members: spouse housing: house caffeine: Yes Have you lived/traveled outside US in past 30 days?: No Contact w/someone who lives/traveled outside US past 30 days?: No Exposure to someone with infectious disease in past 14 days?: No Do you have a fever (greater than 100.4 F or 38 C)?: No Have you tested positive for COVID-19?: No Exposed to someone with COVID-19 in past 14 days?: No Do you have a sore throat?: No Do you have a cough?: No Do you have any weakness?: Yes Do you have any diarrhea?: No Are you experiencing any unusual bleeding?: No Do you have any muscle aches/pain?: No Do you have any abdominal pain?: No Are you experiencing loss of taste or smell?: No Other Medical History Have you received the Flu Vaccine for this season: No Have you received the Pneumonia Vaccine: No <TONY Vaca - Last Filed: 04/11/25 21:35> ROS Obtained: Yes Systems reviewed as appropriate & no additional complaints except as documented Physical Exam <TONY Vaca - Last Filed: 04/11/25 21:35> General General appearance: alert and in no apparent distress Respiratory Respiratory exam: Present normal lung sounds bilaterally Cardiovascular Cardiovascular exam: Present tachycardia Neurological Exam Neurological exam: Present alert and oriented X3 Medical Decision Making <TONY Vaca - Last Filed: 04/11/25 21:35> Medical Records Medical records reviewed: Yes I reviewed the patient's medical records. Screening: Per USPSTF and CDC recommendations, given the prevalence of disease in our region, it is our hospital?s policy to screen for HIV and viral Hepatitis for all patients aged 18 and over and those with ongoing risk factors. Jose Ramon Inquiry Pt receiving controlled substance: No Vital Signs: 04/11/25 18:24 04/11/25 18:47 04/11/25 19:00 Temperature 98.1 F Temperature Source Oral Pulse Rate 96 H Pulse Rate [Orthostatic Lying Right] 103 H Pulse Rate [Orthostatic Sitting Right] 109 H Pulse Rate [Orthostatic Standing Right] 128 H Pulse Rate [Right] 111 H Respiratory Rate 18 16 Blood Pressure 103/66 L Blood Pressure [Orthostatic Lying Left Arm] 90/64 L Blood Pressure [Orthostatic Sitting Left Arm] 98/64 L Blood Pressure [Orthostatic Standing Left Arm] 86/64 L Blood Pressure [Right Arm] 101/58 L Blood Pressure Mean [Right Arm] 72 Blood Pressure Source [Right Arm] Automatic Cuff 02 Sat by Pulse Oximetry 97 95 Oxygen Delivery Method Room Air 04/11/25 19:30 04/11/25 20:00 04/11/25 21:00 Temperature Temperature Source Pulse Rate 100 H 88 93 H Pulse Rate [Orthostatic Lying Right] Pulse Rate [Orthostatic Sitting Right] Pulse Rate [Orthostatic Standing Right] Pulse Rate [Right] Respiratory Rate 15 16 15 Blood Pressure 92/63 L 106/63 L 99/52 L Blood Pressure [Orthostatic Lying Left Arm] Blood Pressure [Orthostatic Sitting Left Arm] Blood Pressure [Orthostatic Standing Left Arm] Blood Pressure [Right Arm] Blood Pressure Mean [Right Arm] Blood Pressure Source [Right Arm] 02 Sat by Pulse Oximetry 95 99 98 Oxygen Delivery Method Room Air 04/11/25 21:30 Temperature Temperature Source Pulse Rate 89 Pulse Rate [Orthostatic Lying Right] Pulse Rate [Orthostatic Sitting Right] Pulse Rate [Orthostatic Standing Right] Pulse Rate [Right] Respiratory Rate 15 Blood Pressure 92/60 L Blood Pressure [Orthostatic Lying Left Arm] Blood Pressure [Orthostatic Sitting Left Arm] Blood Pressure [Orthostatic Standing Left Arm] Blood Pressure [Right Arm] Blood Pressure Mean [Right Arm] Blood Pressure Source [Right Arm] 02 Sat by Pulse Oximetry 97 Oxygen Delivery Method Lab Data Lab results reviewed: Yes I reviewed the patient's lab results. Lab Results 04/11/25 18:22: POC Glucose 253 H 04/11/25 18:31: WBC 28.9 H*, RBC 4.89, Hgb 12.7, Hct 41.2, MCV 84.3, MCH 26.0 L, MCHC 30.8 L, RDW 14.6, Plt Count 267, MPV 9.7, Neut % (Auto) 93.6 H, Lymph % (Auto) 1.7 L, [place] % (Auto) 3.8, Eos % (Auto) 0.0 L, Baso % (Auto) 0.2, Neut # (Auto) 27.0 H, Lymph # (Auto) 0.5 L, [place] # (Auto) 1.1 H, Eos # (Auto) 0.0, Baso # (Auto) 0.1, Total Counted 100, Neutrophils % (Manual) 83 H, Lymphocytes % (Manual) 11, Monocytes % (Manual) 6, Platelet Estimate Normal, RBC Morphology Normal, ESR 51 H, Sodium 139, Potassium 3.8, Chloride 102, Carbon Dioxide 27, Anion Gap 13.8, BUN 14, Creatinine 1.30 H, Estimated Creat Clear 61, Estimated GFR 42 L, Est GFR ( Amer) 50 L, Glucose 256 H, Hemoglobin A1c 6.5 H, C alcium 10.3 H, Magnesium 1.2 L, Total Bilirubin 2.0 H, AST 471 H*, ALT 219 H, A lkaline Phosphatase 135 H, Troponin I < 0.01, C-Reactive Protein 45.5 H, Total Protein 8.0, Albumin 4.3, Globulin 3.7 H, Albumin/Globulin Ratio 1.2, Lipase 88, Procalcitonin 5.42 H, Acetone Level None detected 04/11/25 19:00: Lactate 4.0 H 04/11/25 19:25: VBG pH 7.39, VBG pCO2 34.9 L, VBG pO2 53.9 H, VBG HCO3 20.7 L, V BG Total CO2 21.8 L, VBG O2 Saturation 87.8 H, VBG Base Excess -4.2 L, VBG Lactic Acid 4.3 H 04/11/25 20:46: Urine Color Squires, Urine Appearance Cloudy, Urine pH 6.0, Ur Specific [place] 1.020, Urine Protein 1+ A, Urine Glucose (UA) Negative, Urine Ketones Trace, Urine Blood Negative, Urine Nitrate Negative, Urine Bilirubin Negative, Urine Urobilinogen 1.0, Ur Leukocyte Esterase Trace, Urine RBC 3-5, Urine WBC 50-100, Ur Squamous Epith Cells 3-5, Calcium Oxalate Crystal 1+, Urine Bacteria 2+, Urine Mucus 4+ 04/11/25 18:31 04/11/25 18:31 Orders (Tests/Meds): ED MEDICATIONS Generic Name Dose Route Start Last Admin Trade Name Freq PRN Reason Stop Dose Admin Levofloxacin/Dextrose 750 mg in 150 mls @ 100 mls/hr 04/11/25 19:15 04/11/25 19:47 Levofloxacin 750mg/150ml Premix IV 04/21/25 19:14 100 mls/hr Q24H DARLIN Administration Miscellaneous 1 each 04/11/25 19:15 Vancomycin Consult Request NOTAPPLIC 05/11/25 19:14 CONSULT PHARMACY DARLIN Sodium Chloride 10 ml 04/11/25 20:37 04/11/25 20:38 Sodium Chloride 0.9% 10ml Syr (Rad Only) IV 05/11/25 20:36 10 ml NEEDED PRN Administration Maintain IV Site Discontinued Medications Generic Name Dose Route Start Last Admin Trade Name Freq PRN Reason Stop Dose Admin Acetaminophen 1,000 mg 04/11/25 18:50 04/11/25 19:04 Acetaminophen 1,000mg/100ml Vial IV 04/11/25 18:51 1,000 mg ONCE ONE Administration Sodium Chloride 1,780 mls @ 890 mls/hr 04/11/25 18:50 04/11/25 19:03 Sod Chlor 0.9% 1000ml Bag 30 ml/kg infuse over 2 hr (1780 ml) 04/11/25 20:49 890 mls/hr IV Administration .Q2H ONE Metronidazole 500 mg in 100 mls @ 100 mls/hr 04/11/25 19:14 04/11/25 21:46 Flagyl 500mg/100ml Ivpb IV 04/11/25 20:13 100 mls/hr ONCE ONE Administration Vancomycin/PEG/NADA/Lysine/Water 1.5 gm in 300 mls @ 150 mls/hr 04/11/25 19:30 04/11/25 21:49 Vancomycin 1.5gm/300ml (Peg) Premix IV 04/11/25 21:29 150 mls/hr ONCE ONE Administration Magnesium Sulfate 2 gm in 50 mls @ 50 mls/hr 04/11/25 19:54 Magnesium Sulfate 2gm/50ml Premix IV 04/11/25 20:53 ONCE ONE Iopamidol 155 ml 04/11/25 20:37 04/11/25 20:38 Iopamidol-370 (76%);100ml Bottle IV 04/11/25 20:38 155 ml ONCE ONE Administration Ketorolac Tromethamine 15 mg 04/11/25 18:50 04/11/25 19:04 Ketorolac 30mg/Ml Vial IV 04/11/25 18:51 15 mg ONCE ONE Administration Ondansetron HCl 4 mg 04/11/25 18:50 04/11/25 19:04 Ondansetron 4mg/2ml Vial IV 04/11/25 18:51 4 mg ONCE ONE Administration Sodium Chloride 50 ml 04/11/25 20:37 04/11/25 20:38 0.9 % Sodium Chloride 50 Ml Vial IV 04/11/25 20:38 50 ml ONCE ONE Administration ORDERS Category Date Time Status CT abdomen pelvis w con Stat Cat Scan 04/11/25 18:[address] angio head Stat Cat Scan 04/11/25 19:[address] angio neck Stat Cat Scan 04/11/25 19:[address] head/brain wo con Stat Cat Scan 04/11/25 19:12 Completed Chest XR -- portable [XR chest portable] Stat Exams 04/11/25 18:50 Completed POCUS Point of Care (ER Only) Stat Exams 04/11/25 19:07 Completed Acetone, Serum (Rapid) Stat Lab 04/11/25 18:31 Completed CBC w/Auto Diff [Complete Blood Count Auto Diff] Stat Lab 04/11/25 18:31 Completed CMP [Comprehensive Metabolic Panel] Stat Lab 04/11/25 18:31 Completed CRP [C-Reactive Protein] Stat Lab 04/11/25 18:31 Completed ESR [Erythrocyte Sedimentation Rate] Stat Lab 04/11/25 18:31 Completed Hemoglobin A1C Stat Lab 04/11/25 18:31 Completed Lactic Acid Stat Lab 04/11/25 19:00 Completed Lipase Stat Lab 04/11/25 18:31 Completed Magnesium Stat Lab 04/11/25 18:31 Completed POC Glucose,Bedside Routine Lab 04/11/25 18:22 Completed Procalcitonin Stat Lab 04/11/25 18:31 Completed Trop I [Troponin I] Stat Lab 04/11/25 18:31 Completed Troponin I Q3H Lab 04/11/25 22:30 Ordered Troponin I Q3H Lab 04/12/25 01:30 Ordered UA [Urinalysis and Microscopic] Stat Lab 04/11/25 20:46 Completed Blood Culture Stat Micro 04/11/25 19:42 Received Urine Culture Stat Micro 04/11/25 20:46 Received VBG [Venous Blood Gas] Stat RT 04/11/25 19:19 Ordered VBG [Venous Blood Gas] Stat RT 04/11/25 19:25 Completed Tissue Perfus/Sepsis Re-Eval Sepsis Re-Evaluation Performed: Yes Date Performed: 04/11/25 Time Performed: 21:18 Medical Decision Narrative: In summary patient is a 60-year-old female who presents to the emergency department for evaluation of dizziness and lightheadedness and vomiting. Patient is hypotensive tachycardic on arrival at 90/64 and 111 with an 18 times a minute satting at 97% on room air upon arrival, improved on 8.1. Sickle exam is remarkable for normal breath sounds with no increased work of breathing, abdomen is soft tender bilaterally in the lower quadrants but there is no rebound or guarding no rigidity. Bowel sounds are normal active.. Differential diagnosis includes DKA versus urinary tract infection versus colitis versus enteritis versus cholecystitis versus dehydration versus electrolyte abnormality versus sepsis etc. Initial workup will be conducted with hematologic labs blood cultures urinalysis CT scan plain film chest x-ray blood cultures. Initial interventions include sepsis bolus empiric antibiotics of Levaquin Flagyl and vancomycin. Initial workup reviewed by me and her white count is 28.9 normal H&H absolute neutrophil count is 27 sed rate 51 ABG shows a pH of 7.39 VBG lactic acid is 4.3 creatinine is 1.3 GFR is 42 glucose is 256 lactate is 4 calcium is 10.3 magnesium is 1.2 total bilirubin is 2 AST is 471 ALT is 219 alk phos 135 troponin less than 0.01 CRP is 45.5 Calcitonin is 5.42 lipase is 88 urinalysis shows 1+ protein trace ketones negative nitrates negative blood trace leukocyte Estrace microscopic exam shows 3-5 red cells 50-100 white cells 3-5 epithelial cells 2+ bacteria. My informal to rotation of her CT scan abdomen pelvis shows no acute processes prior to radiology read in my interpretation of her other imaging also shows no acute process or stroke and [place] chest x-ray is normal. Given this we have initiated electrolyte repletion IV started broad- spectrum antibiotics and sepsis bolus. I had interactive discussion with hospital medicine regarding patient presentation ROLON and management and she will be admitted for further evaluation and care. <Luis Armando Sauer MD - Last Filed: 04/11/25 21:53> Vital Signs: 04/11/25 18:24 04/11/25 18:47 04/11/25 19:00 Temperature 98.1 F Temperature Source Oral Pulse Rate 96 H Pulse Rate [Orthostatic Lying Right] 103 H Pulse Rate [Orthostatic Sitting Right] 109 H Pulse Rate [Orthostatic Standing Right] 128 H Pulse Rate [Right] 111 H Respiratory Rate 18 16 Blood Pressure 103/66 L Blood Pressure [Orthostatic Lying Left Arm] 90/64 L Blood Pressure [Orthostatic Sitting Left Arm] 98/64 L Blood Pressure [Orthostatic Standing Left Arm] 86/64 L Blood Pressure [Right Arm] 101/58 L Blood Pressure Mean [Right Arm] 72 Blood Pressure Source [Right Arm] Automatic Cuff 02 Sat by Pulse Oximetry 97 95 Oxygen Delivery Method Room Air 04/11/25 19:30 04/11/25 20:00 04/11/25 21:00 Temperature Temperature Source Pulse Rate 100 H 88 93 H Pulse Rate [Orthostatic Lying Right] Pulse Rate [Orthostatic Sitting Right] Pulse Rate [Orthostatic Standing Right] Pulse Rate [Right] Respiratory Rate 15 16 15 Blood Pressure 92/63 L 106/63 L 99/52 L Blood Pressure [Orthostatic Lying Left Arm] Blood Pressure [Orthostatic Sitting Left Arm] Blood Pressure [Orthostatic Standing Left Arm] Blood Pressure [Right Arm] Blood Pressure Mean [Right Arm] Blood Pressure Source [Right Arm] 02 Sat by Pulse Oximetry 95 99 98 Oxygen Delivery Method Room Air 04/11/25 21:30 Temperature Temperature Source Pulse Rate 89 Pulse Rate [Orthostatic Lying Right] Pulse Rate [Orthostatic Sitting Right] Pulse Rate [Orthostatic Standing Right] Pulse Rate [Right] Respiratory Rate 15 Blood Pressure 92/60 L Blood Pressure [Orthostatic Lying Left Arm] Blood Pressure [Orthostatic Sitting Left Arm] Blood Pressure [Orthostatic Standing Left Arm] Blood Pressure [Right Arm] Blood Pressure Mean [Right Arm] Blood Pressure Source [Right Arm] 02 Sat by Pulse Oximetry 97 Oxygen Delivery Method Lab Data Lab Results 04/11/25 18:22: POC Glucose 253 H 04/11/25 18:31: WBC 28.9 H*, RBC 4.89, Hgb 12.7, Hct 41.2, MCV 84.3, MCH 26.0 L, MCHC 30.8 L, RDW 14.6, Plt Count 267, MPV 9.7, Neut % (Auto) 93.6 H, Lymph % (Auto) 1.7 L, [place] % (Auto) 3.8, Eos % (Auto) 0.0 L, Baso % (Auto) 0.2, Neut # (Auto) 27.0 H, Lymph # (Auto) 0.5 L, [place] # (Auto) 1.1 H, Eos # (Auto) 0.0, Baso # (Auto) 0.1, Total Counted 100, Neutrophils % (Manual) 83 H, Lymphocytes % (Manual) 11, Monocytes % (Manual) 6, Platelet Estimate Normal, RBC Morphology Normal, ESR 51 H, Sodium 139, Potassium 3.8, Chloride 102, Carbon Dioxide 27, Anion Gap 13.8, BUN 14, Creatinine 1.30 H, Estimated Creat Clear 61, Estimated GFR 42 L, Est GFR ( Amer) 50 L, Glucose 256 H, Hemoglobin A1c 6.5 H, C alcium 10.3 H, Magnesium 1.2 L, Total Bilirubin 2.0 H, AST 471 H*, ALT 219 H, A lkaline Phosphatase 135 H, Troponin I < 0.01, C-Reactive Protein 45.5 H, Total Protein 8.0, Albumin 4.3, Globulin 3.7 H, Albumin/Globulin Ratio 1.2, Lipase 88, Procalcitonin 5.42 H, Acetone Level None detected 04/11/25 19:00: Lactate 4.0 H 04/11/25 19:25: VBG pH 7.39, VBG pCO2 34.9 L, VBG pO2 53.9 H, VBG HCO3 20.7 L, V BG Total CO2 21.8 L, VBG O2 Saturation 87.8 H, VBG Base Excess -4.2 L, VBG Lactic Acid 4.3 H 04/11/25 20:46: Urine Color [place], Urine Appearance Cloudy, Urine pH 6.0, Ur Specific [place] 1.020, Urine Protein 1+ A, Urine Glucose (UA) Negative, Urine Ketones Trace, Urine Blood Negative, Urine Nitrate Negative, Urine Bilirubin Negative, Urine Urobilinogen 1.0, Ur Leukocyte Esterase Trace, Urine RBC 3-5, Urine WBC 50-100, Ur Squamous Epith Cells 3-5, Calcium Oxalate Crystal 1+, Urine Bacteria 2+, Urine Mucus 4+ Orders (Tests/Meds): ED MEDICATIONS Generic Name Dose Route Start Last Admin Trade Name Shahrzad PRN Reason Stop Dose Admin Levofloxacin/Dextrose 750 mg in 150 mls @ 100 mls/hr 04/11/25 19:15 04/11/25 19:47 Levofloxacin 750mg/150ml Premix IV 04/21/25 19:14 100 mls/hr Q24H DARLIN Administration Miscellaneous 1 each 04/11/25 19:15 Vancomycin Consult Request NOTAPPLIC 05/11/25 19:14 CONSULT PHARMACY DARLIN Sodium Chloride 10 ml 04/11/25 20:37 04/11/25 20:38 Sodium Chloride 0.9% 10ml Syr (Rad Only) IV 05/11/25 20:36 10 ml NEEDED PRN Administration Maintain IV Site Discontinued Medications Generic Name Dose Route Start Last Admin Trade Name Shahrzad PRN Reason Stop Dose Admin Acetaminophen 1,000 mg 04/11/25 18:50 04/11/25 19:04 Acetaminophen 1,000mg/100ml Vial IV 04/11/25 18:51 1,000 mg ONCE ONE Administration Sodium Chloride 1,780 mls @ 890 mls/hr 04/11/25 18:50 04/11/25 19:03 Sod Chlor 0.9% 1000ml Bag 30 ml/kg infuse over 2 hr (1780 ml) 04/11/25 20:49 890 mls/hr IV Administration .Q2H ONE Metronidazole 500 mg in 100 mls @ 100 mls/hr 04/11/25 19:14 04/11/25 21:46 Flagyl 500mg/100ml Ivpb IV 04/11/25 20:13 100 mls/hr ONCE ONE Administration Vancomycin/PEG/NADA/Lysine/Water 1.5 gm in 300 mls @ 150 mls/hr 04/11/25 19:30 04/11/25 21:49 Vancomycin 1.5gm/300ml (Peg) Premix IV 04/11/25 21:29 150 mls/hr ONCE ONE Administration Magnesium Sulfate 2 gm in 50 mls @ 50 mls/hr 04/11/25 19:54 Magnesium Sulfate 2gm/50ml Premix IV 04/11/25 20:53 ONCE ONE Iopamidol 155 ml 04/11/25 20:37 04/11/25 20:38 Iopamidol-370 (76%);100ml Bottle IV 04/11/25 20:38 155 ml ONCE ONE Administration Ketorolac Tromethamine 15 mg 04/11/25 18:50 04/11/25 19:04 Ketorolac 30mg/Ml Vial IV 04/11/25 18:51 15 mg ONCE ONE Administration Ondansetron HCl 4 mg 04/11/25 18:50 04/11/25 19:04 Ondansetron 4mg/2ml Vial IV 04/11/25 18:51 4 mg ONCE ONE Administration Sodium Chloride 50 ml 04/11/25 20:37 04/11/25 20:38 0.9 % Sodium Chloride 50 Ml Vial IV 04/11/25 20:38 50 ml ONCE ONE Administration ORDERS Category Date Time Status CT abdomen pelvis w con Stat Cat Scan 04/11/25 18:[address] angio head Stat Cat Scan 04/11/25 19:[address] angio neck Stat Cat Scan 04/11/25 19:[address] head/brain wo con Stat Cat Scan 04/11/25 19:12 Completed Chest XR -- portable [XR chest portable] Stat Exams 04/11/25 18:50 Completed POCUS Point of Care (ER Only) Stat Exams 04/11/25 19:07 Completed Acetone, Serum (Rapid) Stat Lab 04/11/25 18:31 Completed CBC w/Auto Diff [Complete Blood Count Auto Diff] Stat Lab 04/11/25 18:31 Completed CMP [Comprehensive Metabolic Panel] Stat Lab 04/11/25 18:31 Completed CRP [C-Reactive Protein] Stat Lab 04/11/25 18:31 Completed ESR [Erythrocyte Sedimentation Rate] Stat Lab 04/11/25 18:31 Completed Hemoglobin A1C Stat Lab 04/11/25 18:31 Completed Lactic Acid Stat Lab 04/11/25 19:00 Completed Lipase Stat Lab 04/11/25 18:31 Completed Magnesium Stat Lab 04/11/25 18:31 Completed POC Glucose,Bedside Routine Lab 04/11/25 18:22 Completed Procalcitonin Stat Lab 04/11/25 18:31 Completed Trop I [Troponin I] Stat Lab 04/11/25 18:31 Completed Troponin I Q3H Lab 04/11/25 22:30 Ordered Troponin I Q3H Lab 04/12/25 01:30 Ordered UA [Urinalysis and Microscopic] Stat Lab 04/11/25 20:46 Completed Blood Culture Stat Micro 04/11/25 19:42 Received Urine Culture Stat Micro 04/11/25 20:46 Received VBG [Venous Blood Gas] Stat RT 04/11/25 19:19 Ordered VBG [Venous Blood Gas] Stat RT 04/11/25 19:25 Completed ECG Data Tracing #1: Independently inter by me rate is 106, rhythm is regular, no ST elevation in anatomical contiguous leads, QTc 380. Medical Decision Narrative: In summary patient is a 60-year-old female who presents to the emergency department for evaluation of dizziness and lightheadedness and vomiting. Patient is hypotensive tachycardic on arrival at 90/64 and 111 with an 18 times a minute satting at 97% on room air upon arrival, improved on 8.1. Sickle exam is remarkable for normal breath sounds with no increased work of breathing, abdomen is soft tender bilaterally in the lower quadrants but there is no rebound or guarding no rigidity. Bowel sounds are normal active.. Differential diagnosis includes DKA versus urinary tract infection versus colitis versus enteritis versus cholecystitis versus dehydration versus electrolyte abnormality versus sepsis etc. Initial workup will be conducted with hematologic labs blood cultures urinalysis CT scan plain film chest x-ray blood cultures. Initial interventions include sepsis bolus empiric antibiotics of Levaquin Flagyl and vancomycin. Initial workup reviewed by me and her white count is 28.9 normal H&H absolute neutrophil count is 27 sed rate 51 ABG shows a pH of 7.39 VBG lactic acid is 4.3 creatinine is 1.3 GFR is 42 glucose is 256 lactate is 4 calcium is 10.3 magnesium is 1.2 total bilirubin is 2 AST is 471 ALT is 219 alk phos 135 troponin less than 0.01 CRP is 45.5 Calcitonin is 5.42 lipase is 88 urinalysis shows 1+ protein trace ketones negative nitrates negative blood trace leukocyte Estrace microscopic exam shows 3-5 red cells 50-100 white cells 3-5 epithelial cells 2+ bacteria. My informal to rotation of her CT scan abdomen pelvis shows no acute processes prior to radiology read in my interpretation of her other imaging also shows no acute process or stroke and [place] chest x-ray is normal. Given this we have initiated electrolyte repletion IV started broad- spectrum antibiotics and sepsis bolus. I had interactive discussion with hospital medicine regarding patient presentation ROLON and management and she will be admitted for further evaluation and care. Luis Armando Sauer: Patient has significantly elevated white count 28.9, elevated lactate with mildly elevated creatinine, transaminitis without elevated lipase or ductal dilatation on CT on broad-spectrum antibiotics chosen given her allergy to penicillins. Urinalysis consistent with nitrate negative urinary tract infection. Patient had volume responsive tachycardia tissue reperfusion assessment performed after bolus and was admitted in stable condition. Critical Care <TONY Vaca - Last Filed: 04/11/25 21:35> Critical Care Time Critical Care Time: Yes Attestation: On 04/11/25, the high probability of a clinically significant, sudden or life threatening deterioration of the following system(s) required my full and direct attention, intervention and personal management. The time I documented below is in addition to time spent performing reported procedures but includes the following listed in this critical care notation. Total Time Total Critical Care Time: 30
--- NOTE | 2025-04-11 18:34 | ECG_ITS ---
APPROVED REPORT Exam: Resting ECG HR:106 bpm ECG Measurements Heart Rate 106 AXES LA 160 P 8 QRSd 101 QRS 233 QT 318 T 61 QTc 380 Conclusion SINUS TACHYCARDIA POSSIBLE RIGHT VENTRICULAR HYPERTROPHY [SOME/ALL OF: PROMINENT R IN V1, LATE TRANSITION, RAD, WHIT, SSS] INFERIOR MYOCARDIAL INFARCTION , OF INDETERMINATE AGE [40+ ms Q WAVE AND/OR ST/T ABNORMALITY IN II/aVF] ANTEROLATERAL MYOCARDIAL INFARCTION , OF INDETERMINATE AGE [40+ ms Q WAVE IN I/aVL/V3-V6] No STEMI Electronically signed by : DANYEL EDWARDS, 04/13/2025 03:55:47
--- NOTE | 2025-04-11 18:49 | PC.NURSE ---
Pt states she has not been feeling well for the past 3 weeks. She took a fall d/t dizziness about 3 weeks ago and continues to have migraines. Pt states she is tender in her belly , decreased appetite, normal BM, no belly pain. Pt has blamed all of the symptoms on her migraines, but weak from all the nausea and vomiting. Pt saw Sobeida last week and her was concerned about her EKG and BP. Pt is hypotensive, tachycardia at this time. Orthostatics performed and charted, Don at bedside.
--- NOTE | 2025-04-11 18:50 | XR_ITS ---
PROCEDURE INFORMATION: Exam: XR Chest Exam date and time: 04/11/2025 7:08 PM Age: 60 years old Clinical indication: Shortness of breath; Additional info: Abdominal pain nausea vomiting TECHNIQUE: Imaging protocol: Radiologic exam of the chest. Views: 1 view. Total images: 1 COMPARISON: CR XR CHEST PORTABLE 11/26/2024 5:57 AM FINDINGS: Tubes, catheters and devices: EKG leads are present. Lungs: Unremarkable. No consolidation. No pulmonary vascular congestion or edema. Pleural spaces: Unremarkable. No pleural effusion. No pneumothorax. Heart/Mediastinum: Unremarkable. No cardiomegaly. No mediastinal widening or hilar enlargement. Bones/joints: Moderate degenerative changes thoracic spine. Mild degenerative changes bilateral AC joints. Other findings: Lordotic position. IMPRESSION: No radiographically acute cardiopulmonary process.
--- NOTE | 2025-04-11 18:50 | CT_ITS ---
PROCEDURE INFORMATION: Exam: CT Abdomen And Pelvis With Contrast Exam date and time: 04/11/2025 8:38 PM Age: 60 years old Clinical indication: Abdominal pain; Additional info: Abdominal pain nausea vomiting TECHNIQUE: Imaging protocol: Computed tomography of the abdomen and pelvis with contrast. Radiation optimization: All CT scans at this facility use at least one of these dose optimization techniques: automated exposure control; mA and/or kV adjustment per patient size (includes targeted exams where dose is matched to clinical indication); or iterative reconstruction. Contrast material: ISOVUE; Contrast volume: 75 ml; Contrast route: IV; COMPARISON: CT ABDOMEN PELVIS W CON 04/23/2020 10:52 AM FINDINGS: Liver: Fatty infiltration. No mass. Gallbladder and biliary ducts: Normal. No calcified stones. No ductal dilation. Pancreas: Normal. No ductal dilation. Spleen: Normal. No splenomegaly. Adrenal glands: Normal. No mass. Kidneys and ureters: 0.3 cm nonobstructive right renal calculus. Right inferior pole renal cortical scarring. Left upper pole renal cortical scarring. No hydronephrosis. Stomach and bowel: Sigmoid colonic diverticula without pericolonic fat stranding. Appendix: Not visualized. No pericecal fat stranding. Nonobstructive pattern. Intraperitoneal space: Unremarkable. No free air. No significant fluid collection. Vasculature: Atherosclerotic calcification of aortoiliac arteries. No aneurysm. Lymph nodes: Unremarkable. No enlarged lymph nodes. Urinary bladder: Unremarkable as visualized. Reproductive: Unremarkable as visualized. Bones/joints: Chronic T1 vertebral body height loss without bony retropulsion. No acute findings. Stable alignment of spine. Soft tissues: Unremarkable. IMPRESSION: 1. No acute findings. 2. Sigmoid colonic diverticulosis. 3. Fatty liver infiltration.
[2025-04-11] MEDS: 0.9 % SODIUM CHLORIDE 1000ML 1,780 ML 890 ML IV (19:03)
[2025-04-11] MEDS: ACETAMINOPHEN 1,000MG/100ML VIAL 1000 MG IV (19:04)
[2025-04-11] MEDS: KETOROLAC 30MG/ML VIAL 15 MG IV (19:04)
[2025-04-11] MEDS: ONDANSETRON 4MG/2ML VIAL 4 MG IV (19:04)
[2025-04-11 19:09] LABS: Basophils # 0.1 K/mm3 (0-0.2); Basophils % 0.2 % (0.1-2.0); Hematocrit 41.2 % (37.0-47.0); Hemoglobin 12.7 g/dL (12.2-16.2); Immature Granulocytes # 0.19 10^3uL; Immature Granulocytes % 0.7 %; Lymphocytes # 0.5 K/mm3 (0.7-4.5); Lymphocytes % 1.7 % (10-50); Mean Corpuscular HGB Conc 30.8 g/dL (31.8-35.4); Mean Corpuscular Volume 84.3 fl (81-99); Mean Platelet Volume 9.7 fl (7.4-10.4); Monocytes # 1.1 K/mm3 (0.1-1.0); Monocytes % 3.8 % (1.7-9.3); Neutrophils % 93.6 % (37.0-80.0); Nucleated Red Blood Cells # 0 10^3/uL; Nucleated Red Blood Cells % 0 %; Platelet Count 267 K/mm3 (142-424); Red Blood Count 4.89 M/mm3 (4.20-5.40); Red Cell Distribution Width 14.6 % (11.5-17.5); Red Cell Distribution Width-SD 44.4 fL; White Blood Count 28.9 K/mm3 (4.8-10.8)
--- NOTE | 2025-04-11 19:11 | CT_ITS ---
PROCEDURE INFORMATION: Exam: CTA Neck With Contrast Exam date and time: 04/11/2025 8:34 PM Age: 60 years old Clinical indication: Dizziness and giddiness; Additional info: Dizziness and headache TECHNIQUE: Imaging protocol: Computed tomographic angiography of the neck with contrast. Exam focused on the cervical segments of the vasculature. 3D rendering (Not supervised by radiologist): MIP and/or 3D reconstructed images were created by the technologist. Radiation optimization: All CT scans at this facility use at least one of these dose optimization techniques: automated exposure control; mA and/or kV adjustment per patient size (includes targeted exams where dose is matched to clinical indication); or iterative reconstruction. Contrast material: ISOVUE; Contrast volume: 80 ml; Contrast route: INTRAVENOUS (IV); COMPARISON: CT CERVICAL SPINE WO CON 10/20/2024 1:29 PM FINDINGS: Right common carotid artery: No stenosis. No dissection or occlusion. Right internal carotid artery: No stenosis of the extracranial segment. No dissection or occlusion. Right external carotid artery: No occlusion or stenosis of the origin. Left common carotid artery: No stenosis. No dissection or occlusion. Left internal carotid artery: No stenosis of the extracranial segment. No dissection or occlusion. Left external carotid artery: No occlusion or stenosis of the origin. Right vertebral artery: No stenosis. No dissection or occlusion. Left vertebral artery: No stenosis. No dissection or occlusion. Soft tissues: Normal. No significant soft tissue swelling. Bones/joints: The right vertebral is diminutive and noncontributory to the basilar artery. Moderate loss of intervertebral disc space with degenerative changes involving C3-C4, and C6-C7. IMPRESSION: No stenosis or occlusion. REFERENCES: NASCET CRITERIA. The degree of stenosis in the cervical segment of the internal carotid artery is based on NASCET criteria. Normal is no stenosis. Mild is less than 50% stenosis. Moderate is 50-69% stenosis. Severe is 70% to 99% stenosis. Total occlusion is no detectable patent lumen.
--- NOTE | 2025-04-11 19:11 | CT_ITS ---
PROCEDURE INFORMATION: Exam: CTA Head With Contrast, Arteriography Exam date and time: 04/11/2025 8:34 PM Age: 60 years old Clinical indication: Dizziness and giddiness; Additional info: Dizziness and headache TECHNIQUE: Imaging protocol: Computed tomographic angiography of the head with contrast. Exam focused on the arteries. 3D rendering (Not supervised by radiologist): MIP and/or 3D reconstructed images were created by the technologist. Radiation optimization: All CT scans at this facility use at least one of these dose optimization techniques: automated exposure control; mA and/or kV adjustment per patient size (includes targeted exams where dose is matched to clinical indication); or iterative reconstruction. Contrast material: ISOVUE; Contrast volume: 80 ml; Contrast route: INTRAVENOUS (IV); COMPARISON: CT HEAD/BRAIN WO CON 04/11/2025 8:32 PM FINDINGS: ANTERIOR CIRCULATION: Right internal carotid artery: Intracranial segment is patent with no significant stenosis. No aneurysm. Right middle cerebral artery: No occlusion or significant stenosis. No aneurysm. Right anterior cerebral artery: No occlusion or significant stenosis. No aneurysm. Left internal carotid artery: Intracranial segment is patent with no significant stenosis. No aneurysm. Left middle cerebral artery: No occlusion or significant stenosis. No aneurysm. Left anterior cerebral artery: No occlusion or significant stenosis. No aneurysm. POSTERIOR CIRCULATION: Right vertebral artery: No occlusion or significant stenosis. No aneurysm. Left vertebral artery: No occlusion or significant stenosis. No aneurysm. Basilar artery: No occlusion or significant stenosis. No aneurysm. Right posterior cerebral artery: No occlusion or significant stenosis. No aneurysm. Left posterior cerebral artery: No occlusion or significant stenosis. No aneurysm. Brain: No definite mass, mass effect, or midline shift. Cerebral ventricles: No ventriculomegaly. Bones/joints: Unremarkable. No acute fracture. Soft tissues: Unremarkable. IMPRESSION: No large vessel stenosis or occlusion.
--- NOTE | 2025-04-11 19:12 | CT_ITS ---
PROCEDURE INFORMATION: Exam: CT Head Without Contrast Exam date and time: 04/11/2025 8:32 PM Age: 60 years old Clinical indication: Dizziness; Additional info: Dizziness and headache TECHNIQUE: Imaging protocol: Computed tomography of the head without contrast. Total images: 542 Radiation optimization: All CT scans at this facility use at least one of these dose optimization techniques: automated exposure control; mA and/or kV adjustment per patient size (includes targeted exams where dose is matched to clinical indication); or iterative reconstruction. COMPARISON: CT HEAD/BRAIN WO CON 10/20/2024 1:29 PM FINDINGS: Brain: No acute intracranial hemorrhage, midline shift, or mass. Minor periventricular white matter hypodensity compatible with remote small vessel ischemic change. No acute territorial infarct. Basilar cisterns are preserved. Cerebral ventricles: No ventriculomegaly. Paranasal sinuses: Visualized sinuses are unremarkable. No fluid levels. Mastoid air cells: Visualized mastoid air cells are well aerated. Bones: Mild osteopenia. Hyperostosis of the frontal calvarium. No skull fracture. Soft tissues: Unremarkable. IMPRESSION: 1. No acute intracranial process. 2. Mild periventricular white matter remote small vessel ischemic changes.
[2025-04-11 19:13] LABS: Alanine Aminotransferase 219 U/L (12-78); Albumin Level 4.3 g/dl (3.5-5.0); Albumin/Globulin Ratio 1.2 (1.1-1.8); Alkaline Phosphatase 135 U/L (38-126); Anion Gap 13.8 mEq/L (5-15); Aspartate Amino Transferase 471 U/L (14-36); Blood Urea Nitrogen 14 mg/dl (7-17); Calcium 10.3 mg/dl (8.4-10.2); Carbon Dioxide 27 mmol/L (22.0-30.0); Chloride 102 mmol/L (98-107); Creatinine Clearance Estimated 61 mL/min (50-200); Estimated Glomerular Filt Rate 42 ml/min (>60); GFR (African American) 50 ML/MIN (>60); Globulin 3.7 g/dL (1.3-3.2); Glucose 256 mg/dl (74-100); Lipase 88 U/L (23-300); Magnesium 1.2 mg/dl (1.6-2.3); Potassium 3.8 mmoL/L (3.5-5.1); Sodium 139 mmol/L (136-145)
[2025-04-11 19:19] LABS: C-Reactive Protein 45.5 mg/L (0-4)
[2025-04-11 19:24] LABS: MANUAL DIFFERENTIAL MANUAL DIFFERENTIAL (MANUAL DIFF)
[2025-04-11 19:33] LABS: Procalcitonin 5.42 ng/mL (0.0-2.0)
[2025-04-11 19:35] LABS: VBG Base Excess -4.2 mmol/L (-2.4-2.3); VBG HCO3 20.7 mmol/L (23-30); VBG Oxygen Saturation 87.8 % (50-70); VBG PCO2 34.9 mmol/L (35-51); VBG PH 7.39 mmol/L (7.31-7.41); VBG PO2 53.9 mmol/L (28-40); VBG Total CO2 21.8 mmol/L (23-27)
[2025-04-11 19:40] LABS: Lactate Venous 4.3 mmol/L (0.4-2.0)
--- NOTE | 2025-04-11 19:40 | PC.NURSE ---
shivaRT called critical lactic:4.3
[2025-04-11 19:44] LABS: Erythrocyte Sedimentation Rate 51 mm/hr (0-30)
[2025-04-11] MEDS: LEVOFLOXACIN/D5W 750 MG/150 ML 750 MG/150 ML PIGGYBACK 100 MG IV (19:47)
[2025-04-11 19:54] LABS: Troponin I < 0.01 ng/ml (0.00-0.034)
[2025-04-11 20:28] LABS: Lymphocytes % 11 % (10-50); Monocytes % 6 % (2-9); Neutrophils % 83 % (42-76); Platelet Estimate Normal; RBC Morphology Normal; Total Cells Counted 100
[2025-04-11 20:29] LABS: Acetone, Serum (Rapid) None Detected (None Detect)
[2025-04-11] MEDS: SODIUM CHLORIDE 0.9% 10ML SYR (RAD ONLY) 10 ML IV (20:38)
[2025-04-11] MEDS: IOPAMIDOL-370 (76%);100ML BOTTLE 155 ML IV (20:38)
[2025-04-11] MEDS: 0.9 % SODIUM CHLORIDE 50 ML VIAL IV (20:38)
[2025-04-11 20:54] LABS: Microscopic, Urine URINE MICROSCOPIC (MICROSCOPIC)
[2025-04-11 20:59] LABS: Appearance,Urine CLOUDY (Clear); Blood, Urine Negative (Negative); Color,Urine ORANGE (Yellow); Glucose,Urine (UA) Negative (Negative); Ketones,Urine TRACE (Negative); Leukocyte Esterase,Urine TRACE (Negative); Nitrate,Urine Negative (Negative); Protein,Urine 1+ (Negative)
[2025-04-11 21:02] LABS: Bilirubin,Urine Negative (Negative)
[2025-04-11 21:23] LABS: Bacteria,Urine 2+ /lpf; Calcium Oxalate Crystals,Urine 1+ /lpf; Mucus,Urine 4+ /lpf; WBC,Urine 50-100 #/hpf (0-3)
[2025-04-11 21:41] LABS: Hemoglobin A1C 6.5 % (4.0-6.0)
[2025-04-11] MEDS: METRONIDAZ/SOD CHL 500 MG/100 ML PIGGYBACK 100 MG IV (21:46)
[2025-04-11] MEDS: VANCOMYCIN/WATER FOR INJ (PEG) 1.5 GM/300 ML PIGGYBACK IV (21:49)
[2025-04-11] MEDS: MAGNESIUM SULFATE IN WATER 2 GM/50 ML PIGGYBACK IV (21:55)
--- NOTE | 2025-04-11 22:44 | EXP.HP ---
History of Present Illness *Admission Date: 04/11/25 *Reason for visit:: sepsis *History of present illness: nesha presents for evaluation of 3-week history of vomiting with no diarrhea, dizziness and lightheadedness especially when standing and headache. She went to her PCP today who noted that she had a significantly low blood pressure and high heart rate. Patient was recently diagnosed as a diabetic and started on metformin. She currently denies chest pain fever chills hemoptysis hematochezia melena hematemesis hematuria. Patient states her last bowel movement was yesterday. Reportedly having worsening general malaise and general weakness over the past 3 weeks. Had 1 fall 2 weeks ago following lightheadedness. Having bilateral periumbilical pain, colicky in nature, alleviated by bowel movements. No association with food intake as she has largely been anorexic. 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 CT abdomen pelvis largely unremarkable however demonstrates atherosclerotic calcific aortoiliac disease. She also has a nonobstructive right renal calculus PFSH [facility] Disclaimer: The information contained in this section may have been updated after the patient was seen, as this information can be updated by other users. Medical History Depression Anxiety Hyperlipidemia Hypertension Hypothyroidism Concussion Fracture of lumbar spine Surgical History delivery delivered H/O thyroidectomy History of facial surgery Family History Other Family history of diabetes mellitus Family history of heart disease Social History Smoking Status: Never smoker alcohol intake: never substance use type: denies use current occupational status: retired Travel in the last 8 weeks?: None household members: spouse housing: house caffeine: Yes Have you lived/traveled outside [place] in past 30 days?: No Contact w/someone who lives/traveled outside [place] past 30 days?: No Exposure to someone with infectious disease in past 14 days?: No Do you have a fever (greater than 100.4 F or 38 C)?: No Have you tested positive for COVID-19?: No Exposed to someone with COVID-19 in past 14 days?: No Do you have a sore throat?: No Do you have a cough?: No Do you have any weakness?: Yes Do you have any diarrhea?: No Are you experiencing any unusual bleeding?: No Do you have any muscle aches/pain?: No Do you have any abdominal pain?: No Are you experiencing loss of taste or smell?: No Other Medical History Have you received the Flu Vaccine for this season: No Have you received the Pneumonia Vaccine: No Review of Systems Review of Systems Review of systems:: pertinent systems reviewed and negative unless documented below Meds Home Medications and Allergies Home Medications ?Medication ?Instructions ?Recorded ?Confirmed ?Type cariprazine 1.5 mg capsule 1.5 mg PO DAILY #30 caps 12/28/23 01/01/25 Rx (Vraylar) mirtazapine 30 mg tablet (Remeron) 30 mg PO HS #30 tabs 12/28/23 01/01/25 Rx atorvastatin 10 mg tablet 10 mg PO HS Cholesterol #30 tabs 01/04/24 01/01/25 Rx cholecalciferol (vitamin D3) 1,250 1,250 mcg PO WEEKLY vitamin d 01/04/24 01/01/25 Rx mcg (50,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 #12 caps levothyroxine 100 mcg tablet 100 mcg PO DAILY thyroid #90 tabs 01/04/24 01/01/25 Rx (Synthroid) levothyroxine 50 mcg tablet 50 mcg PO DAILY thyroid #14 tabs 01/04/24 01/01/25 Rx (Synthroid) ubrogepant 100 mg tablet (Ubrelvy) 100 mg PO ONCE PRN migraine 01/10/24 01/01/25 Rx headache #16 tabs hydrocodone 5 mg-acetaminophen 325 1 tab PO Q8H PRN pain #12 tabs 10/20/24 01/01/25 Rx mg tablet hydrocodone 5 mg-acetaminophen 325 1 tab PO Q6H PRN post op pain #40 10/26/24 01/01/25 Rx mg tablet tabs benzonatate 100 mg capsule 100 mg PO TIDP PRN Cough #30 caps 12/07/24 01/01/25 Rx New Prescriptions to Start Prescriptions: Allergies Allergy/AdvReac Type Severity Reaction Status Date / Time sumatriptan (From IMITREX) Allergy Severe S-DROP IN Verified 01/01/25 09:50 B/P Penicillins (PENICILLINS) Allergy Intermediate I-HIVES Verified 01/01/25 09:50 topiramate (From Topamax) Allergy Intermediate S-DROP IN Verified 01/01/25 09:50 B/P Exam Data for Last 24 hours Vital signs and Labs for Last 24 Hours: Temp Pulse Resp BP Pulse Ox O2 Del Method 98.1 F 90 13 105/61 L 97 Room Air 04/11/25 18:24 04/11/25 22:00 04/11/25 22:00 04/11/25 22:00 04/11/25 22:00 04/11/25 20:00 Laboratory Results - last 24 hr 04/11/25 18:22: POC Glucose 253 H 04/11/25 18:31: WBC 28.9 H*, RBC 4.89, Hgb 12.7, Hct 41.2, MCV 84.3, MCH 26.0 L, MCHC 30.8 L, RDW 14.6, Plt Count 267, MPV 9.7, Neut % (Auto) 93.6 H, Lymph % (Auto) 1.7 L, [place] % (Auto) 3.8, Eos % (Auto) 0.0 L, Baso % (Auto) 0.2, Neut # (Auto) 27.0 H, Lymph # (Auto) 0.5 L, [place] # (Auto) 1.1 H, Eos # (Auto) 0.0, Baso # (Auto) 0.1, Total Counted 100, Neutrophils % (Manual) 83 H, Lymphocytes % (Manual) 11, Monocytes % (Manual) 6, Platelet Estimate Normal, RBC Morphology Normal, ESR 51 H, Sodium 139, Potassium 3.8, Chloride 102, Carbon Dioxide 27, Anion Gap 13.8, BUN 14, Creatinine 1.30 H, Estimated Creat Clear 61, Estimated GFR 42 L, Est GFR ( Amer) 50 L, Glucose 256 H, Hemoglobin A1c 6.5 H, Calcium 10.3 H, Magnesium 1.2 L, Total Bilirubin 2.0 H, AST 471 H*, ALT 219 H, Alkaline Phosphatase 135 H, Troponin I < 0.01, C-Reactive Protein 45.5 H, Total Protein 8.0, Albumin 4.3, Globulin 3.7 H, Albumin/Globulin Ratio 1.2, Lipase 88, Procalcitonin 5.42 H, Acetone Level None detected 04/11/25 19:00: Lactate 4.0 H 04/11/25 19:25: VBG pH 7.39, VBG pCO2 34.9 L, VBG pO2 53.9 H, VBG HCO3 20.7 L, VBG Total CO2 21.8 L, VBG O2 Saturation 87.8 H, VBG Base Excess -4.2 L, VBG Lactic Acid 4.3 H 04/11/25 20:46: Urine Color [place], Urine Appearance Cloudy, Urine pH 6.0, Ur Specific [place] 1.020, Urine Protein 1+ A, Urine Glucose (UA) Negative, Urine Ketones Trace, Urine Blood Negative, Urine Nitrate Negative, Urine Bilirubin Negative, Urine Urobilinogen 1.0, Ur Leukocyte Esterase Trace, Urine RBC 3-5, Urine WBC 50-100, Ur Squamous Epith Cells 3-5, Calcium Oxalate Crystal 1+, Urine Bacteria 2+, Urine Mucus 4+ I & O for Last 24 hours: Intake & Output 04/08/25 04/09/25 04/10/25 04/11/25 23:59 23:59 23:59 23:59 Weight 86.183 kg Constitutional Constitutional: no acute distress *Routine HEENT Exam Head: Present normocephalic Eye: Present EOMI and PERRL ENT: Present mucous membranes moist *Routine Neck Exam Neck: Present supple; Absent lymphadenopathy *Routine Respiratory Exam Respiratory: Present CTA bilaterally *Routine Cardiovascular Exam Cardiovascular: Present RRR *Routine Abdominal Exam Abdominal: Present soft and normoactive bowel sounds; Absent tenderness *Routine Rectal Exam Rectal:: deferred *Routine Genitalia Exam Genitalia:: deferred *Routine Extremities Exam Extremities: Absent cyanosis, clubbing or edema *Routine Skin Exam Skin: Present warm; Absent rash *Routine Neurological Exam Neurological: Present alert and oriented X3 Assessment and Plan *Assessment and plan (1) Urinary tract infection: Status: Acute Qualifiers: Hematuria presence: with hematuria Urinary tract infection type: site unspecified Qualified Code(s): N39.0 - Urinary tract infection, site not specified; R31.9 - Hematuria, unspecified Category: Medical Code(s): N39.0 - Urinary tract infection, site not specified (2) Sepsis without septic shock: Status: Acute Category: Medical Code(s): A41.9 - Sepsis, unspecified organism (3) Fall: Status: Acute Category: Medical Code(s): W19.XXXA - Unspecified fall, initial encounter (4) Diabetes mellitus: Problem Comment: HgA1c 6.6, new diagnosis Status: Chronic Category: Medical Code(s): E11.9 - Type 2 diabetes mellitus without complications (5) Hyperlipidemia: Status: Acute Category: Medical Code(s): E78.5 - Hyperlipidemia, unspecified (6) Migraine: Status: Chronic Qualifiers: Intractability: not intractable Migraine type: unspecified Status migrainosus presence: without status migrainosus Qualified Code(s): G43.909 - Migraine, unspecified, not intractable, without status migrainosus Category: Medical Code(s): G43.909 - Migraine, unspecified, not intractable, without status migrainosus (7) Hypothyroidism: Status: Chronic Category: Medical Code(s): E03.9 - Hypothyroidism, unspecified Plan 60-year-old female admitted after 3 weeks of general malaise and general weakness with significant leukocytosis and lactate. Patient's vitals responded to IV fluid resuscitation. Unknown source of infection at this time will treat broad-spectrum antibiotics Sepsis - Vancomycin - Flagyl IV - Levofloxacin - Follow-up blood cultures - Follow-up urine cultures - De-escalate antibiotics as tolerated - Has a right kidney stone, follow-up urine cultures as this may be infected Transaminitis - Right upper quadrant CRIS - Creatinine 1.3 baseline 1 - Monitor Abnormal EKG - Echo Hypomagnesemia - Replete Diabetes -Insulin Will resume home medications following reconciliation
--- NOTE | 2025-04-11 22:56 | PC.NURSE ---
Report called to Graciela for admission to room 211.
[2025-04-11 23:25] LABS: Troponin I < 0.01 ng/ml (0.00-0.034)
[2025-04-11 23:40] LABS: Reflex Lactic Add Lactic Reflex
[2025-04-12] VITALS (20 sets, daily range): BP systolic 96–124; BP diastolic 55–78; PULSE 65–84; RESP 16–20; TEMP 36.3–43; O2SAT 94–98; BMI 30.8; BMI 30.7
--- NOTE | 2025-04-12 | US_ITS ---
FINAL REPORT TECHNIQUE: Sonographic images of the right upper quadrant were obtained. CLINICAL HISTORY: ELEV LIVER ENZYMES COMPARISON: None FINDINGS: PANCREAS: Unremarkable. LIVER: Fatty infiltrated. No focal hepatic lesion. Portal vein is patent with normal directional flow.. GALLBLADDER: There is sludge and possibly also nonshadowing gallstones. Gallbladder wall thickening with trace pericholecystic fluid.. COMMON DUCT: 7 mm. Prominent for age. RIGHT KIDNEY: The right kidney measures 10.9 cm. There is no hydronephrosis, mass, or stone. FREE FLUID: None. IMPRESSION: Sludge and possibly small nonshadowing gallstones in the gallbladder with wall thickening and trace pericholecystic fluid. Cholecystitis not excluded. Fatty liver. Reviewed, Interpreted and Dictated by Meena Santana MD Transcribed by Linda Salas Authenticated and [facility]
[2025-04-12 00:57] LABS: Lactic Acid Follow Up (RFLX 1) 1.7 mmol/L (0.7-2.1)
[2025-04-12 01:17] LABS: Troponin I < 0.01 ng/ml (0.00-0.034)
--- NOTE | 2025-04-12 04:29 | PC.NURSE ---
New Admit. Ox4, daughter at bedside. Pt's bp ran soft, pt received fluid bolus. Bed alarm set, pt high fall risk due to hx of falls 3 weeks ago. Plan of care ongoing.
--- NOTE | 2025-04-12 06:00 | CA_ITS ---
APPROVED REPORT EXAM: Comprehensive 2D, Doppler, and color-flow Echocardiogram [employer] Science Professor: Sulma Warner RDCS Ht: 5 ft 6 in Wt: 191lbs BSA: 1.96 BP: 142/89 mmHg Indications: abn ekg-Tachycardia, HTN M-Mode Dimensions RVDd 2.85 cm (0.9-2.6) LA Diam 3.47 cm (1.9-4.0) LVDd 4.67 cm (3.5-5.7) LVDs 3.46 cm (3.5-5.7) IVSd 0.87 cm (0.6-1.1) PWd 0.84 cm (0.6-1.1) EF (Teich) 50.90% FS 25.90% EDV (Teich) 100.80 mL TAPSE 2.04 (<1.7) ESV (Teich) 49.50 mL LV Diastology E Decel Time 205 (160-240 msec) E/A Ratio 1.06 Mitral Valve MV E Max Jake. 78.0 (40-130 cm/s) MV A Velocity 73.0 (40-130 cm/s) E/A Ratio 1.06 MV Mean Gr. 1.60 (<2mmHg) MV PHT 60.0 ms Left Ventricle The left ventricle is normal size. The left ventricular systolic function is normal. The left ventricular ejection fraction is within the normal range. There is increased LV wall thickness. There is normal LV segmental wall motion. The left ventricular diastolic function is normal. LVEF is 55%. Right Ventricle Right ventricle is mildly dilated. The right ventricular systolic function is normal. Atria Left atrium is mildly dilated. Right atrium is mildly dilated. There is no Doppler evidence of interatrial shunt. Aortic Valve The aortic valve is mildly thickened. There is no aortic valvular stenosis. Trace aortic regurgitation. Mitral Valve The mitral valve is normal in structure. No evidence of mitral valve stenosis. Trace mitral regurgitation. Tricuspid Valve Tricuspid valve is grossly normal in structure and function. Trace tricuspid regurgitation. There is insufficient TR jet to estimate RVSP. Pulmonic Valve The pulmonary valve is normal in structure. Mild pulmonic regurgitation. Great Vessels The aortic root is normal in size. IVC is normal in size and collapses >50% with inspiration. Pericardium There is no pericardial effusion. Other Information Study Quality: Fair Conclusion Normal biventricular systolic function. Mild RV dilation. Mild biatrial dilation. Mild PI. Electronically signed by : Abbi Lau MD 04/12/2025 10:04:47
[2025-04-12 06:07] LABS: Cholesterol 88 mg/dl (140-200); Triglycerides 58 mg/dl (30-150); VLDL Cholesterol 12 mg/dL (0-40)
[2025-04-12 06:08] LABS: Chol/HDL Ratio 3.4 (1-3.5); HDL Cholesterol 26 mg/dl (40-60); Magnesium 1.9 mg/dl (1.6-2.3); Phosphorous 2.7 mg/dl (2.5-4.5)
[2025-04-12 06:15] LABS: Basophils % 0.2 % (0.1-2.0); Eosinophils # 0.1 Kmm3 (0.0-0.4); Immature Granulocytes # 0.06 10^3uL; Immature Granulocytes % 0.4 %; Monocytes # 0.9 K/mm3 (0.1-1.0); Neutrophils # 14.7 K/mm3 (1.8-7.8); Nucleated Red Blood Cells # 0 10^3/uL; Nucleated Red Blood Cells % 0 %
[2025-04-12 06:19] LABS: Direct LDL Cholesterol 31.09 mg/dL (100-129)
[2025-04-12 06:23] LABS: Lactic Acid 1.1 mmol/L (0.7-2.1)
[2025-04-12 06:27] LABS: INR 1.19 (0.9-1.1)
[2025-04-12 06:31] LABS: Eosinophils % 0.7 % (0.1-12.0); Hematocrit 35.3 % (37.0-47.0); Lymphocytes # 0.4 K/mm3 (0.7-4.5); Lymphocytes % 2.6 % (10-50); Mean Corpuscular HGB Conc 30.6 g/dL (31.8-35.4); Mean Corpuscular Hemoglobin 25.6 pg (27.0-31.2); Mean Corpuscular Volume 83.6 fl (81-99); Mean Platelet Volume 9.4 fl (7.4-10.4); Monocytes % 5.4 % (1.7-9.3); Neutrophils % 90.7 % (37.0-80.0); Platelet Count 187 K/mm3 (142-424); Red Blood Count 4.22 M/mm3 (4.20-5.40); Red Cell Distribution Width 14.6 % (11.5-17.5); Red Cell Distribution Width-SD 44.4 fL; White Blood Count 16.2 K/mm3 (4.8-10.8)
[2025-04-12 06:34] LABS: Hemoglobin 10.8 g/dL (12.2-16.2)
[2025-04-12 06:35] LABS: MANUAL DIFFERENTIAL MANUAL DIFFERENTIAL (MANUAL DIFF)
[2025-04-12 07:02] LABS: POC Glucose,Bedside 134 (70-110)
[2025-04-12 07:45] LABS: Acinetobacter calcoaceticus-ba Not Detected; Bacteroides fragilis Not Detected; CTX-M Not Detected; Candida albicans Not Detected; Candida auris Not Detected; Candida glabrata Not Detected; Candida krusei Not Detected; Candida parapsilosis Not Detected; Candida tropicalis Not Detected; Cryptococcus neoformans/gattii Not Detected; Enterobacter cloacae complex Not Detected; Enterobacterales Detected; Enterococcus faecalis Not Detected; Enterococcus faecium Not Detected; Haemophilus influenzae Not Detected; IMP Not Detected; KPC Not Detected; Klebsiella aerogenes Not Detected; Klebsiella pneumoniae grp Not Detected; Listeria monocytogenes Not Detected; NDM Not Detected; Neisseria meningitidis Not Detected; OXA-48-like Not Detected; Proteus spp. Not Detected; Pseudomonas aeruginosa Not Detected; Salmonella spp. Not Detected; Serratia marcescens Not Detected; Staphylococcus epidermidis Not Detected; Staphylococcus lugdunensis Not Detected; Staphylococcus spp. Not Detected; Stenotrophomonas maltophilia Not Detected; Streptococcus agalactiae(GrpB) Not Detected; Streptococcus pneumoniae Not Detected; Streptococcus pyogenes Group A Not Detected; Streptococcus spp. Not Detected; VIM Not Detected; mcr-1 Not Detected
[2025-04-12] MEDS: METRONIDAZ/SOD CHL 500 MG/100 ML PIGGYBACK 100 MG IV ×2 (08:00→17:43)
[2025-04-12 08:17] LABS: Eosinophils % 2 % (0-3); Lymphocytes % 5 % (10-50); Monocytes % 3 % (2-9); Neutrophils % 90 % (42-76)
[2025-04-12 08:18] LABS: RBC Morphology Normal; Total Cells Counted 101
[2025-04-12 08:21] LABS: Platelet Estimate Normal
[2025-04-12 08:39] LABS: Magnesium 1.8 mg/dl (1.6-2.3)
[2025-04-12 08:57] LABS: Albumin Level 3.3 g/dl (3.5-5.0); Chloride 111 mmol/L (98-107); Potassium 3.8 mmoL/L (3.5-5.1); Sodium 140 mmol/L (136-145)
[2025-04-12 09:00] LABS: Alanine Aminotransferase 180 U/L (12-78); Albumin/Globulin Ratio 1.2 (1.1-1.8); Alkaline Phosphatase 117 U/L (38-126); Anion Gap 6.8 mEq/L (5-15); Aspartate Amino Transferase 276 U/L (14-36); Bilirubin,Total 2.5 mg/dl (0.2-1.3); Blood Urea Nitrogen 12 mg/dl (7-17); Carbon Dioxide 26 mmol/L (22.0-30.0); Creatinine Clearance Estimated 80 mL/min (50-200); Estimated Glomerular Filt Rate 56 ml/min (>60); GFR (African American) 68 ML/MIN (>60); Globulin 2.8 g/dL (1.3-3.2); Total Protein,Serum 6.1 g/dl (6.3-8.2)
[2025-04-12] MEDS: ENOXAPARIN 40MG/0.4ML SYRINGE 40 MG SUBCUT (09:00)
[2025-04-12] MEDS: LEVOTHYROXINE 100MCG (0.1MG) TAB 100 MCG PO (09:00)
[2025-04-12] MEDS: DOCUSATE SODIUM 100 MG CAPSULE PO (09:00)
[2025-04-12] MEDS: CEFEPIME HCL 2 GM in 0.9 % SODIUM CHLORIDE 100 ML IV ×2 (09:00→17:44)
[2025-04-12 09:01] LABS: Calcium 8.8 mg/dl (8.4-10.2); Glucose 144 mg/dl (74-100)
--- NOTE | 2025-04-12 09:27 | HMH.OTEV ---
OT Inpatient Evaluation Rehab OT IP Evaluation Start: 04/11/25 23:50 Freq: ONCE Status: Active Protocol: [facility]/12/25 09[facility]23 [facility] (Rec: 04/12/25 09:27 [facility] [id number]) Rehab OT IP Assessment Subjective History Pt oriented x 3 on arrival. Pt agreeable to engage in therapy evaluation. Pt admitted on 04/11/25 due to sepsis. History and physical: Patient presents for evaluation of 3-week history of vomiting with no diarrhea, dizziness and lightheadedness especially when standing and headache. She went to her PCP today who noted that she had a significantly low blood pressure and high heart rate. Patient was recently diagnosed as a diabetic and started on metformin. She currently denies chest pain fever chills hemoptysis hematochezia melena hematemesis hematuria. Patient states her last bowel movement was yesterday. Reportedly having worsening general malaise and general weakness over the past 3 weeks. Had 1 fall 2 weeks ago following lightheadedness. Having bilateral periumbilical pain, colicky in nature, alleviated by bowel movements. No association with food intake as she has largely been anorexic. In the emergency anthropology department chair and neck imaging was obtained which was largely unremarkable. CT abdomen pelvis largely unremarkable however demonstrates atherosclerotic calcific aortoiliac disease. She also has a nonobstructive right renal calculus Subjective Prior to being in the hospital, pt lived at home with her . Pt claims normally she is independent with all ADLs and IADLs. Pt also still drove. She did not require any type of AE during functional transfers . Objective Patient Orientation Person,Place,Birthday Right Upper WFL Extremity Gross ROM Left Upper Extremity WFL Gross ROM Bed Mobility bed mobility-scooting,bed mobility - supine/sit Assist Level Supervision/Stand by Transfer Training Sit/Stand Transfer Assist Level Supervision/Stand by Chair Transfer Supervision/Stand by Ability Chair Transfer Sit to/from Ambulatory Technique Chair Transfer Rolling Walker Assistive Devices Lower Body Dressing Standby Assistance Ability Rehab OT IP prob,goals,plan Problems Date of Evaluation: 04/12/25 Rehab Potential Rehab Potential Innapropriate for Skilled Therapy Equipment Needs Assistive Devices Rolling / Wheeled Walker Discharge Plan OT Discharge Plan At this time, pt appears to be at her baseline with functional transfers and ADL independence. Pt can return home with once she is medically stable per physician. Eval Complexity Eval Charge Codes 86017 - Moderate Complexity PHYSICIAN CERTIFICATION: I certify the specified therapy services for Bella Livingood are required, authorized, and reviewed every 30 days.
--- NOTE | 2025-04-12 10:11 | HMH.PTEV ---
Physical Therapy Evaluation Rehab PT IP Evaluation Start: 04/11/25 23:50 Freq: ONCE Status: Active Protocol: Document 04/12/25 08:10 EDILIA (Rec: 04/12/25 10:11 [facility] [id number]) Subjective/History History History Patient presents for evaluation of 3-week history of vomiting with no diarrhea, dizziness and lightheadedness especially when standing and headache. Reportedly having worsening general malaise and general weakness over the past 3 weeks. Had 1 fall 2 weeks ago following lightheadedness. With significant leukocytosis and lactate. Patient currently lives at home alone with her . 2 RICKI the home. She is independent at baseline with all ADLs and mobility and does not use an AD. Subjective Subjective Patient presents resting supine. She is alert and oriented to person, place, . She is willing to participate with PT/OT this morning. Patient returned to bed with call light in reach. [facility] How much help from another person do you currently need... Turning from your None back to your side while in a flat bed without using bedrails? Moving from lying on None back to sitting on the side of a flat bed without using bedrails? Moving to and from a None bed to a chair ( including a wheelchair)? Standing up from a None chair using your arms? (e.g., wheelchair, bedside chair) Walking in hospital None room? Climbing 3-5 steps None with a railing? Mobility Score 24 Mobility Level [facility] Mobility Walk 250 feet or more Mobility Calculator Rehab PT IP Eval Objective Appearance Patient Behavior Appropriate,Cooperative Patient Orientation Person,Place,Time Difficulty following none instructions Speech Pattern Clear,Appropriate Ambulation Patient Able to Yes Ambulate Ambulation Observation Ambulation Distance 50 (feet) Ambulation Assistive None Device Ambulation Ability Supervision/Stand by Balance Ability to Arise Able, uses arms to help Sitting Balance Steady, safe Standing Balance Steady, wide stance Dynamic Sitting Normal Balance Ability Dynamic Standing Normal Balance Ability Transfers Bed Transfer Ability Independent Sit to Stand Bed Independent Transfer Ability Rehab PT IP prob,goals,plan Problems Date of Evaluation: 04/12/25 Discharge Plan PT Discharge Plan Patient is currently most appropriate to return home once medically stable for d/c. Patient demonstrated adequate strength to ambulate ~50 [address] hallway with SBA. Skilled acute therapy is not indicated at this time as patient is near her baseline with strength and mobility. Eval Complexity Eval Charge Codes 78147 - High Complexity PHYSICIAN CERTIFICATION: I certify the specified therapy services for Bella Livingood are required, authorized, and reviewed every 30 days.
[2025-04-12 12:51] LABS: POC Glucose,Bedside 112 (70-110)
--- NOTE | 2025-04-12 14:22 | P.CONS_ITS ---
History of Present Illness *Admission Date: 04/11/25 *Reason for visit:: Acute calculus cholecystitis *History of present illness: This is a 60-year-old female who presented to the emergency department with increasing nausea, vomiting, and vague abdominal complaints. No specific pain but she did note tenderness to palpation. Evaluation initially included CT scan that revealed no abnormality with regard to her biliary tree. Follow-up ultrasound revealed likely nonshadowing stones, sludge, wall thickening, and trace pericholecystic fluid consistent with possible acute cholecystitis. She remains somewhat nauseous but continues to to have no complaints of severe abdominal pain. Forwarded from admission H&P/emergency department evaluation: Patient presents for evaluation of 3-week history of vomiting with no diarrhea, dizziness and lightheadedness especially when standing and headache. She went to her PCP today who noted that she had a significantly low blood pressure and high heart rate. Patient was recently diagnosed as a diabetic and started on metformin. She currently denies chest pain fever chills hemoptysis hematochezia melena hematemesis hematuria. Patient states her last bowel movement was yesterday. Reportedly having worsening general malaise and general weakness over the past 3 weeks. Had 1 fall 2 weeks ago following lightheadedness. Having bilateral periumbilical pain, colicky in nature, alleviated by bowel movements. No association with food intake as she has largely been anorexic. In the emergency glazing department supervisor and neck imaging was obtained which was largely unremarkable. CT abdomen pelvis largely unremarkable however demonstrates atherosclerotic calcific aortoiliac disease. She also has a nonobstructive right renal calculus [facility] Disclaimer: The information contained in this section may have been updated after the patient was seen, as this information can be updated by other users. Medical History Depression Anxiety Hyperlipidemia Hypertension Hypothyroidism Concussion Fracture of lumbar spine Surgical History delivery delivered H/O thyroidectomy History of facial surgery Family History Other Family history of diabetes mellitus Family history of heart disease Social History (Updated 04/11/25 @ 23:50 by Laura Dutton RN) Smoking Status: Never smoker alcohol intake: never substance use type: denies use current occupational status: retired Travel in the last 8 weeks?: None household members: spouse housing: house caffeine: Yes Have you lived/traveled outside US in past 30 days?: No Contact w/someone who lives/traveled outside US past 30 days?: No Exposure to someone with infectious disease in past 14 days?: No Do you have a fever (greater than 100.4 F or 38 C)?: No Have you tested positive for COVID-19?: No Exposed to someone with COVID-19 in past 14 days?: No Do you have a sore throat?: No Do you have a cough?: No Do you have any weakness?: Yes Are you experiencing any nausea/vomitting?: No Do you have any diarrhea?: No Are you experiencing any unusual bleeding?: No Do you have any muscle aches/pain?: No Do you have any abdominal pain?: No Are you experiencing loss of taste or smell?: No Review of Systems Review of Systems Review of systems:: pertinent systems reviewed and negative unless documented below *Gastrointestinal Gastrointestinal: Reports as per [facility] Meds Home Medications and Allergies Home Medications ?Medication ?Instructions ?Recorded ?Confirmed ?Type cariprazine 1.5 mg capsule 1.5 mg PO DAILY #30 caps 04/11/25 Rx (Vraylar) mirtazapine 30 mg tablet (Remeron) 30 mg PO HS #30 tab s 12/28/23 04/11/25 Rx levothyroxine 100 mcg tablet 100 mcg PO DAILY thyroid #90 tabs 01/04/24 04/11/25 Rx (Synthroid) alendronate 70 mg tablet 70 mg PO WEEKLY 04/11/2503/31 History baclofen 10 mg tablet 10 mg PO TID 04/11/25 History cholecalciferol (vitamin D3) 1,250 1,250 mcg PO WEEKLY vitamin d 04/11/25 04/12/25 History 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,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 lisinopril 2.5 mg tablet 2.5 mg PO DAILY 04/11/2503/31 History metformin 500 mg tablet,extended 500 mg PO DAILY 04/1104/11/25 History release 24 hr tramadol 50 mg tablet 50 mg PO TID 04/11/25 History atorvastatin 10 mg tablet 10 mg PO HS 04/12/25 5 History ubrogepant 100 mg tablet (Ubrelvy) 100 mg PO DAILYP [place] N migraine 04/12/25 04/12/25 History headache New Prescriptions to Start Prescriptions: Allergies Allergy/AdvReac Type Severity Reaction Status Date / Time sumatriptan (From IMITREX) Allergy Severe S-DROP IN Verified 01/01/25 09:50 B/P Penicillins (PENICILLINS) Allergy Intermediate I-HIVES Verified 01/01/25 09:50 topiramate (From Topamax) Allergy Intermediate S-DROP IN Verified 01/01/25 09:50 B/P Exam (Inpt) Vital signs and Labs for Last 24 Hours: Temp Pulse Resp BP Pulse Ox O2 Del Method 98.1 F 82 20 109/67 L 94 L Room Air 04/12/25 14:14 04/12/25 14:14 04/12/25 14:14 04/12/25 14:14 04/12/25 14:14 04/12/25 14:14 Laboratory Results - last 24 hr 04/11/25 18:22: POC Glucose 253 H 04/11/25 18:31: WBC 28.9 H*, RBC 4.89, Hgb 12.7, Hct 41.2, MCV 84.3, MCH 26.0 L, MCHC 30.8 L, RDW 14.6, Plt Count 267, MPV 9.7, Neut % (Auto) 93.6 H, Lymph % (Auto) 1.7 L, [place] % (Auto) 3.8, Eos % (Auto) 0.0 L, Baso % (Auto) 0.2, Neut # (Auto) 27.0 H, Lymph # (Auto) 0.5 L, [place] # (Auto) 1.1 H, Eos # (Auto) 0.0, Baso # (Auto) 0.1, Total Counted 100, Neutrophils % (Manual) 83 H, Lymphocytes % (Manual) 11, Monocytes % (Manual) 6, Platelet Estimate Normal, RBC Morphology Normal, ESR 51 H, Sodium 139, Potassium 3.8, Chloride 102, Carbon Dioxide 27, Anion Gap 13.8, BUN 14, Creatinine 1.30 H, Estimated Creat Clear 61, Estimated GFR 42 L, Est GFR ( Amer) 50 L, Glucose 256 H, Hemoglobin A1c 6.5 H, C alcium 10.3 H, Magnesium 1.2 L, Total Bilirubin 2.0 H, AST 471 H*, ALT 219 H, A lkaline Phosphatase 135 H, Troponin I < 0.01, C-Reactive Protein 45.5 H, Total Protein 8.0, Albumin 4.3, Globulin 3.7 H, Albumin/Globulin Ratio 1.2, Lipase 88, Procalcitonin 5.42 H, Acetone Level None detected 04/11/25 19:00: Lactate 4.0 H 04/11/25 19:25: VBG pH 7.39, VBG pCO2 34.9 L, VBG pO2 53.9 H, VBG HCO3 20.7 L, V BG Total CO2 21.8 L, VBG O2 Saturation 87.8 H, VBG Base Excess -4.2 L, VBG Lactic Acid 4.3 H, A. baumannii (PCR) Not detected, Bacteroides fragilis Not detected, Nancy albicans (PCR) Not detected, Nancy auris (PCR) Not detected, C. glabrata (PCR) Not detected, C. krusei (PCR) Not detected, C. parapsilosis (PCR) Not detected, C. tropicalis (PCR) Not detected, Cryptococcus neoformans PCR Not detected, Enterobacterales (PCR) Detected, Enterococc faecalis PCR Not detected, Enterococc faecium PCR Not detected, E. coli (PCR) Detected, H. influenzae DNA Not detected, Klebsiella aerogenes (PCR) Not detected, Klebsiella oxytoca PCR Not detected, K. pneumoniae group (PCR) Not detected, List. monocytogenes PCR Not detected, N. meningitidis (PCR) Not detected, Proteus species (PCR) Not detected, Salmonella spp. (PCR) Not detected, Serratia marcescens PCR Not detected, Staphylococcus sp PCR Not detected, Staph aureus (PCR) Not detected, mecA/C & MREJ Resist Gene Not applicable, mecA/C-Methicil Resis Gene Not applicable, Staph epidermidis (PCR) Not detected, Staph lugdunensis (TEM-PCR) Not detected, S. maltophilia (PCR) Not detected, Streptococcus sp PCR Not detected, S.agalactiae Grp B NATALIE Not detected, Strep pneumoniae (PCR) Not detected, S. pyogenes GrpA NATALIE Not detected, P. aeruginosa (PCR) Not detected, Wilmer/B-Vanco Res Genes Not applicable, blaIMP Car res Gene PCR Not detected, KPC-Carbap Res Gene PCR Not detected, blaNDM Car Res Gene PCR Not detected, OXA-48 Carbapenem Resis Gene (PCR) Not detected, blaVIM Car Res Gene PCR Not detected, CTX-M Gene Resistance (PCR) Not detected, MCR-1 Resistance Gene Not detected 04/11/25 20:46: Urine Color [place], Urine Appearance Cloudy, Urine pH 6.0, Ur Specific [place] 1.020, Urine Protein 1+ A, Urine Glucose (UA) Negative, Urine Ketones Trace, Urine Blood Negative, Urine Nitrate Negative, Urine Bilirubin Negative, Urine Urobilinogen 1.0, Ur Leukocyte Esterase Trace, Urine RBC 3-5, Urine WBC 50-100, Ur Squamous Epith Cells 3-5, Calcium Oxalate Crystal 1+, Urine Bacteria 2+, Urine Mucus 4+ 04/11/25 22:58: Troponin I < 0.01 04/12/25 00:42: Lactate 1.7, Troponin I < 0.01 04/12/25 05:45: WBC 16.2 H D, RBC 4.22, Hgb 10.8 L D, Hct 35.3 L, MCV 83.6, MCH 25.6 L, MCHC 30.6 L, RDW 14.6, Plt Count 187 D, MPV 9.4, Neut % (Auto) 90.7 H, Lymph % (Auto) 2.6 L, [place] % (Auto) 5.4, Eos % (Auto) 0.7, Baso % (Auto) 0.2, N eut # (Auto) 14.7 H, Lymph # (Auto) 0.4 L, [place] # (Auto) 0.9, Eos # (Auto) 0.1, Baso # (Auto) 0.0, Total Counted 101, Neutrophils % (Manual) 90 H, Lymphocytes % (Manual) 5 L, Monocytes % (Manual) 3, Eosinophils % (Manual) 2, Platelet Estimate Normal, RBC Morphology Normal, PT 13.0 H, INR 1.19 H, Sodium 140, Potassium 3.8, Chloride 111 H, Carbon Dioxide 26, Anion Gap 6.8, BUN 12, C reatinine 1.00 D, Estimated Creat Clear 80, Estimated GFR 56 L, Est GFR ( Amer) 68 D, Glucose 144 H D, Lactate 1.1, Calcium 8.8, Phosphorus 2.7, Magnesium 1.9 D 04/12/25 05:45: Magnesium 1.8, Total Bilirubin 2.5 H, AST 276 H D, ALT 180 H, Alkaline Phosphatase 117, Total Protein 6.1 L, Albumin 3.3 L D, Globulin 2.8, Albumin/Globulin Ratio 1.2, Triglycerides 58, Cholesterol 88 L, LDL Cholesterol Direct 31.09 L, VLDL Cholesterol 12, HDL Cholesterol 26 L, Cholesterol/HDL Ratio 3.4 04/12/25 06:30: POC Glucose 134 H 04/12/25 12:38: POC Glucose 112 H I & O for Labs for Last 24 Hours: Intake & Output 04/10/25 04/11/25 04/12/25 04/13/25 11:59 11:59 11:59 11:59 Intake Total 1000 / 1000 Output Total 600 / 600 350 / 350 Balance 400 / 400 -350 / -350 Weight 191 lb 11.2 oz Microbiology Reports for the Last 24 Hours: Microbiology 04/11/25 19:25 Blood Blood Culture - Preliminary Constitutional: no acute distress Respiratory: Absent respiratory distress Cardiac: Absent Tachycardia GI: Present soft and tenderness (Epigastric and bilateral upper quadrant tenderness to palpation with increased tenderness along right side) Results Labs 04/12/25 05:45 04/12/25 05:45 Labs: Laboratory Results - last 24 hr 04/11/25 18:22: POC Glucose 253 H 04/11/25 18:31: WBC 28.9 H*, RBC 4.89, Hgb 12.7, Hct 41.2, MCV 84.3, MCH 26.0 L, MCHC 30.8 L, RDW 14.6, Plt Count 267, MPV 9.7, Neut % (Auto) 93.6 H, Lymph % (Auto) 1.7 L, [place] % (Auto) 3.8, Eos % (Auto) 0.0 L, Baso % (Auto) 0.2, Neut # (Auto) 27.0 H, Lymph # (Auto) 0.5 L, [place] # (Auto) 1.1 H, Eos # (Auto) 0.0, Baso # (Auto) 0.1, Total Counted 100, Neutrophils % (Manual) 83 H, Lymphocytes % (Manual) 11, Monocytes % (Manual) 6, Platelet Estimate Normal, RBC Morphology Normal, ESR 51 H, Sodium 139, Potassium 3.8, Chloride 102, Carbon Dioxide 27, Anion Gap 13.8, BUN 14, Creatinine 1.30 H, Estimated Creat Clear 61, Estimated GFR 42 L, Est GFR ( Amer) 50 L, Glucose 256 H, Hemoglobin A1c 6.5 H, C alcium 10.3 H, Magnesium 1.2 L, Total Bilirubin 2.0 H, AST 471 H*, ALT 219 H, A lkaline Phosphatase 135 H, Troponin I < 0.01, C-Reactive Protein 45.5 H, Total Protein 8.0, Albumin 4.3, Globulin 3.7 H, Albumin/Globulin Ratio 1.2, Lipase 88, Procalcitonin 5.42 H, Acetone Level None detected 04/11/25 19:00: Lactate 4.0 H 04/11/25 19:25: VBG pH 7.39, VBG pCO2 34.9 L, VBG pO2 53.9 H, VBG HCO3 20.7 L, V BG Total CO2 21.8 L, VBG O2 Saturation 87.8 H, VBG Base Excess -4.2 L, VBG Lactic Acid 4.3 H, A. baumannii (PCR) Not detected, Bacteroides fragilis Not detected, Nancy albicans (PCR) Not detected, Nancy auris (PCR) Not detected, C. glabrata (PCR) Not detected, C. krusei (PCR) Not detected, C. parapsilosis (PCR) Not detected, C. tropicalis (PCR) Not detected, Cryptococcus neoformans PCR Not detected, Enterobacterales (PCR) Detected, Enterococc faecalis PCR Not detected, Enterococc faecium PCR Not detected, E. coli (PCR) Detected, H. influenzae DNA Not detected, Klebsiella aerogenes (PCR) Not detected, Klebsiella oxytoca PCR Not detected, K. pneumoniae group (PCR) Not detected, List. monocytogenes PCR Not detected, N. meningitidis (PCR) Not detected, Proteus species (PCR) Not detected, Salmonella spp. (PCR) Not detected, Serratia marcescens PCR Not detected, Staphylococcus sp PCR Not detected, Staph aureus (PCR) Not detected, mecA/C & MREJ Resist Gene Not applicable, mecA/C-Methicil Resis Gene Not applicable, Staph epidermidis (PCR) Not detected, Staph lugdunensis (TEM-PCR) Not detected, S. maltophilia (PCR) Not detected, Streptococcus sp PCR Not detected, S.agalactiae Grp B NATALIE Not detected, Strep pneumoniae (PCR) Not detected, S. pyogenes GrpA NATALIE Not detected, P. aeruginosa (PCR) Not detected, Wilmer/B-Vanco Res Genes Not applicable, blaIMP Car res Gene PCR Not detected, KPC-Carbap Res Gene PCR Not detected, blaNDM Car Res Gene PCR Not detected, OXA-48 Carbapenem Resis Gene (PCR) Not detected, blaVIM Car Res Gene PCR Not detected, CTX-M Gene Resistance (PCR) Not detected, MCR-1 Resistance Gene Not detected 04/11/25 20:46: Urine Color [place], Urine Appearance Cloudy, Urine pH 6.0, Ur Specific Edson 1.020, Urine Protein 1+ A, Urine Glucose (UA) Negative, Urine Ketones Trace, Urine Blood Negative, Urine Nitrate Negative, Urine Bilirubin Negative, Urine Urobilinogen 1.0, Ur Leukocyte Esterase Trace, Urine RBC 3-5, Urine WBC 50-100, Ur Squamous Epith Cells 3-5, Calcium Oxalate Crystal 1+, Urine Bacteria 2+, Urine Mucus 4+ 04/11/25 22:58: Troponin I < 0.01 04/12/25 00:42: Lactate 1.7, Troponin I < 0.01 04/12/25 05:45: WBC 16.2 H D, RBC 4.22, Hgb 10.8 L D, Hct 35.3 L, MCV 83.6, MCH 25.6 L, MCHC 30.6 L, RDW 14.6, Plt Count 187 D, MPV 9.4, Neut % (Auto) 90.7 H, Lymph % (Auto) 2.6 L, [place] % (Auto) 5.4, Eos % (Auto) 0.7, Baso % (Auto) 0.2, N eut # (Auto) 14.7 H, Lymph # (Auto) 0.4 L, [place] # (Auto) 0.9, Eos # (Auto) 0.1, Baso # (Auto) 0.0, Total Counted 101, Neutrophils % (Manual) 90 H, Lymphocytes % (Manual) 5 L, Monocytes % (Manual) 3, Eosinophils % (Manual) 2, Platelet Estimate Normal, RBC Morphology Normal, PT 13.0 H, INR 1.19 H, Sodium 140, Potassium 3.8, Chloride 111 H, Carbon Dioxide 26, Anion Gap 6.8, BUN 12, C reatinine 1.00 D, Estimated Creat Clear 80, Estimated GFR 56 L, Est GFR ( Amer) 68 D, Glucose 144 H D, Lactate 1.1, Calcium 8.8, Phosphorus 2.7, Magnesium 1.9 D 04/12/25 05:45: Magnesium 1.8, Total Bilirubin 2.5 H, AST 276 H D, ALT 180 H, Alkaline Phosphatase 117, Total Protein 6.1 L, Albumin 3.3 L D, Globulin 2.8, Albumin/Globulin Ratio 1.2, Triglycerides 58, Cholesterol 88 L, LDL Cholesterol Direct 31.09 L, VLDL Cholesterol 12, HDL Cholesterol 26 L, Cholesterol/HDL Ratio 3.4 04/12/25 06:30: POC Glucose 134 H 04/12/25 12:38: POC Glucose [address] scan - abdomen: report reviewed and image reviewed CT scan - pelvis: report reviewed and image reviewed US - abdomen: report reviewed and image reviewed Assessment and Plan *Assessment and plan (1) Acute cholecystitis due to biliary calculus: Status: Acute Category: Medical Code(s): K80.00 - Calculus of gallbladder with acute cholecystitis without obstruction Plan: Patient with reproducible right upper quadrant tenderness, leukocytosis, and evidence of possible cholecystitis per ultrasound. Continue overall management as per primary service Laparoscopic cholecystectomy today I have discussed the risks and benefits including, but not limited to: Bleeding Infection Damage to surrounding tissue Inherent risks of sedation The patient agrees to proceed. (2) Abnormal LFTs: Status: Acute Category: Medical Code(s): R79.89 - Other specified abnormal findings of blood chemistry Plan: Possibly secondary to acute cholecystitis (3) Hyperbilirubinemia: Status: Acute Category: Medical Code(s): E80.6 - Other disorders of bilirubin metabolism Plan Mild biliary dilatation without definitive evidence of common bile duct stone (per ultrasound). Elevated bilirubin possibly secondary to acute inflammatory response to cholecystitis. Possible biliary obstruction to be evaluated postoperatively if her labs do not normalize. She may require gastroenterology evaluation. Will consider intraoperative cholangiogram; however, the associated risks likely outweigh potential benefits secondary to expected infundibular inflammatory changes.
--- NOTE | 2025-04-12 14:29 | P.PNANES_ITS ---
[facility] Disclaimer: The information contained in this section may have been updated after the patient was seen, as this information can be updated by other users. Medical History Depression Anxiety Hyperlipidemia Hypertension Hypothyroidism Concussion Fracture of lumbar spine Surgical History delivery delivered H/O thyroidectomy History of facial surgery Family History Other Family history of diabetes mellitus Family history of heart disease Social History Smoking Status: Never smoker alcohol intake: never substance use type: denies use current occupational status: retired Travel in the last 8 weeks?: None household members: spouse housing: house caffeine: Yes Have you lived/traveled outside [place] in past 30 days?: No Contact w/someone who lives/traveled outside US past 30 days?: No Exposure to someone with infectious disease in past 14 days?: No Do you have a fever (greater than 100.4 F or 38 C)?: No Have you tested positive for COVID-19?: No Exposed to someone with COVID-19 in past 14 days?: No Do you have a sore throat?: No Do you have a cough?: No Do you have any weakness?: Yes Are you experiencing any nausea/vomitting?: No Do you have any diarrhea?: No Are you experiencing any unusual bleeding?: No Do you have any muscle aches/pain?: No Do you have any abdominal pain?: No Are you experiencing loss of taste or smell?: No [facility] Anesthesia Checklist Patient Identification Patient Identification: Arm Band and Verbal (Name & ) Structural Data Admitted From: Inpatient Planned Operative Procedure/s: lap ellie Consent for Planned Operative Procedure(s) Verified: Yes Verified Documents: Surgical Consent and History and Physical NPO Status Verified Time NPO: 00:00 Additional verifications Anesthesia Reactions: No Hx Blood Transfusions: No Blood Transfusion Reaction: No Airway Assessment Mallampati Score:: Class II Dentition: Edentulous Neurological Assessment Level of Consciousness: Awake, Alert and Appropriate Hx Seizures: No Anesthesia Plan Anesthesia Risk discussed: Yes Anesthesia Plan: Verified ASA Class: II Anesthesia Type: General
[2025-04-12] MEDS: LIDOCAINE 1% 20ML MDV 20 ML (15:03)
[2025-04-12] MEDS: CLINDAMYCIN PHOSPHATE/D5W 900 MG/50 ML PIGGYBACK 100 MG IV (15:04)
--- NOTE | 2025-04-12 16:30 | EXP.OP.NOTE ---
Date of procedure: 04/12/25 Pre-op Diagnosis:: Acute calculus cholecystitis Post-op Diagnosis:: Same Procedure performed:: Laparoscopic cholecystectomy Surgeon:: Tha Dee MD Anesthesia: GETA Estimated blood loss (mL): 50 Operative findings:: Significant gallbladder distention Large, patulous, thin-walled gallbladder with severe pericholecystic fat stranding Profound infundibular thickening Serosal weeping Operative note:: After informed consent was obtained, the patient was taken to the operating room and placed in the supine position. General anesthesia was induced and the abdomen was prepped and draped in a sterile fashion. After infiltration with local anesthetic an infraumbilical incision was made. A Veress needle was placed in position. The abdomen was insufflated. A 5 mm optical trocar was placed in position. Under direct visualization, a 12 mm trocar was placed in the subxiphoid position and 2 additional 5 mm trocars were placed in the right upper quadrant. The gallbladder was elevated up and over the liver margin. The tissue around the cystic duct was carefully dissected. Profound infundibular thickening and pericholecystic fat stranding made dissection prolonged/tedious. 3 clips were placed proximally and the duct was transected with harmonic chris. Harmonic chris were then utilized to dissect the gallbladder away from the liver margin with careful attention to the control of the cystic artery. The gallbladder was placed in a retrieval bag and removed through the subxiphoid trocar site. The right upper quadrant was thoroughly irrigated. No active bleeding or bile leak was noted. Fascia at the subxiphoid trocar site was reapproximated utilizing the NeoClose device. The remaining trocars were removed. All wounds were irrigated and skin was closed with 4-0 Monocryl in a subcuticular fashion. Steri-Strips were applied. The patient's anesthetic agents were reversed and extubation was completed prior to transfer to recovery in stable condition. Condition: stable Disposition: PACU Specimens:: Gallbladder and contents Complications:: No immediate
--- NOTE | 2025-04-12 16:44 | EXP.ANES.I ---
[facility] Anesthesia Record Part I Anesthesia Record I Intake, IV Amount: 600 Hydration: Adequate Estimated blood loss (mL): 100 Urine output (mL): 0 Blood Pressure: 118/78 SaO2: 96 Pulse Rate: 83 Airway Patency: Patent Respiratory Rate: 18 Temperature: 97.3 F Patient is:: Awake and Stable Stable to PACU at:: 16:45
[2025-04-12] MEDS: HYDROCODONE/APAP 5/325 MG TABLET 1 TAB PO ×2 (18:46→23:48)
--- NOTE | 2025-04-12 19:26 | PC.NURSE ---
patient is alert and oriented x 4, 3 incision sites total on abd., CDI, steristrips intact. Pain c/o 5/10 abd pain, treated per MAR. Patient is tolerating clear liquid diet without issues. VSS.
[2025-04-12] MEDS: PANTOPRAZOLE 40MG TABLET 40 MG PO (21:11)
--- NOTE | 2025-04-12 21:34 | EXP.PN ---
Subjective *Date: 04/24/25 *Time: 18:13 Exam Data for Last 24 hours Vital signs and Labs for Last 24 Hours: Temp Pulse Resp BP Pulse Ox O2 Del Method 98.6 F 84 18 108/55 L 96 Room Air 04/12/25 19:30 04/12/25 19:30 04/12/25 18:30 04/12/25 19:30 04/12/25 18:30 04/12/25 19:30 Laboratory Results - last 24 hr 04/11/25 18:31: Hemoglobin A1c 6.5 H 04/11/25 19:25: A. baumannii (PCR) Not detected, Bacteroides fragilis Not detected, Nancy albicans (PCR) Not detected, Nancy auris (PCR) Not detected, C. glabrata (PCR) Not detected, C. krusei (PCR) Not detected, C. parapsilosis (PCR) Not detected, C. tropicalis (PCR) Not detected, Cryptococcus neoformans PCR Not detected, Enterobacterales (PCR) Detected, Enterococc faecalis PCR Not detected, Enterococc faecium PCR Not detected, E. coli (PCR) Detected, H. influenzae DNA Not detected, Klebsiella aerogenes (PCR) Not detected, Klebsiella oxytoca PCR Not detected, K. pneumoniae group (PCR) Not detected, List. monocytogenes PCR Not detected, N. meningitidis (PCR) Not detected, Proteus species (PCR) Not detected, Salmonella spp. (PCR) Not detected, Serratia marcescens PCR Not detected, Staphylococcus sp PCR Not detected, Staph aureus (PCR) Not detected, mecA/C & MREJ Resist Gene Not applicable, mecA/C-Methicil Resis Gene Not applicable, Staph epidermidis (PCR) Not detected, Staph lugdunensis (TEM-PCR) Not detected, S. maltophilia (PCR) Not detected, Streptococcus sp PCR Not detected, S.agalactiae Grp B NATALIE Not detected, Strep pneumoniae (PCR) Not detected, S. pyogenes GrpA NATALIE Not detected, P. aeruginosa (PCR) Not detected, Wilmer/B-Vanco Res Genes Not applicable, blaIMP Car res Gene PCR Not detected, KPC-Carbap Res Gene PCR Not detected, blaNDM Car Res Gene PCR Not detected, OXA-48 Carbapenem Resis Gene (PCR) Not detected, blaVIM Car Res Gene PCR Not detected, CTX-M Gene Resistance (PCR) Not detected, MCR-1 Resistance Gene Not detected 04/11/25 22:58: Troponin I < 0.01 04/12/25 00:42: Lactate 1.7, Troponin I < 0.01 04/12/25 05:45: WBC 16.2 H D, RBC 4.22, Hgb 10.8 L D, Hct 35.3 L, MCV 83.6, MCH 25.6 L, MCHC 30.6 L, RDW 14.6, Plt Count 187 D, MPV 9.4, Neut % (Auto) 90.7 H, Lymph % (Auto) 2.6 L, [place] % (Auto) 5.4, Eos % (Auto) 0.7, Baso % (Auto) 0.2, Neut # (Auto) 14.7 H, Lymph # (Auto) 0.4 L, [place] # (Auto) 0.9, Eos # (Auto) 0.1, Baso # (Auto) 0.0, Total Counted 101, Neutrophils % (Manual) 90 H, Lymphocytes % (Manual) 5 L, Monocytes % (Manual) 3, Eosinophils % (Manual) 2, Platelet Estimate Normal, RBC Morphology Normal, PT 13.0 H, INR 1.19 H, Sodium 140, Potassium 3.8, Chloride 111 H, Carbon Dioxide 26, Anion Gap 6.8, BUN 12, Creatinine 1.00 D, Estimated Creat Clear 80, Estimated GFR 56 L, Est GFR ( Amer) 68 D, Glucose 144 H D, Lactate 1.1, Calcium 8.8, Phosphorus 2.7, Magnesium 1.9 D 04/12/25 05:45: Magnesium 1.8, Total Bilirubin 2.5 H, AST 276 H D, ALT 180 H, Alkaline Phosphatase 117, Total Protein 6.1 L, Albumin 3.3 L D, Globulin 2.8, Albumin/Globulin Ratio 1.2, Triglycerides 58, Cholesterol 88 L, LDL Cholesterol Direct 31.09 L, VLDL Cholesterol 12, HDL Cholesterol 26 L, Cholesterol/HDL Ratio 3.4 04/12/25 06:30: POC Glucose 134 H 04/12/25 12:38: POC Glucose 112 H I & O for Last 24 hours: Intake & Output 04/09/25 04/10/25 04/11/25 04/12/25 23:59 23:59 23:59 23:59 Intake Total 1600 / 1600 Output Total 200 / 200 1150 / 1150 Balance -200 / 800 450 / 450 Weight 84.595 kg 86.9 kg Microbiology Reports for the Last 24 Hours: Microbiology 04/11/25 19:42 Blood Blood Culture - Preliminary NO GROWTH AFTER 24 HOURS 04/11/25 19:25 Blood Blood Culture - Preliminary Constitutional Constitutional: no acute distress *Routine Respiratory Exam Respiratory: Absent respiratory distress *Routine Cardiovascular Exam Cardiovascular: Absent tachycardia *Routine Abdominal Exam Comments: Incisions healing without evidence of infection. Assessment and Plan *Assessment and plan (1) Acute cholecystitis due to biliary calculus: Status: Acute Category: Medical Code(s): K80.00 - Calculus of gallbladder with acute cholecystitis without obstruction Plan Bella Presley is a 60-year-old female who presented with nausea/vomiting/diarrhea and weakness and was found to have UTI, E. coli bacteremia, and acute cholecystitis. #Acute cholecystitis ? Presented with nausea/vomiting with significant transaminitis. RUQ ultrasound suggestive of acute cholecystitis. ? General Surgery consulted, s/p laparoscopic cholecystectomy on 04/12/2025. - AST/ALT/bilirubin improving. ? General Surgery recommending slow advancement in diet due to severe pericholecystic fat stranding inflammation. #UTI #E. coli bacteremia ? Continue cefepime. #Type 2 diabetes ? Hemoglobin A1c 6.5%. ? LDSSI, ACHS blood cultures. #Hypertension ? Hold home metformin. Blood pressure stable here. #Hypothyroidism ? Continue home levothyroxine 100 mcg. TFTs normal. Full code DVT prophylaxis: Lovenox 40 mg
[2025-04-13] VITALS (7 sets, daily range): BP systolic 99–118; BP diastolic 54–69; PULSE 65–100; RESP 16; TEMP 36.7–36.9; O2SAT 92–96
[2025-04-13] MEDS: METRONIDAZ/SOD CHL 500 MG/100 ML PIGGYBACK 100 MG IV ×3 (00:25→16:39)
[2025-04-13] MEDS: CEFEPIME HCL 2 GM in 0.9 % SODIUM CHLORIDE 100 ML IV ×3 (01:36→16:39)
--- NOTE | 2025-04-13 04:42 | PC.NURSE ---
Pt. is alert and oriented x4. Pt. has 3 surgical incisions below right breast and 1 naval incision, steristrips CDI. Pt. c/o abdominal pain, treated per mar. Bed is low and locked, call light is in reach.
[2025-04-13 05:17] LABS: POC Glucose,Bedside 92 (70-110)
[2025-04-13] MEDS: LEVOTHYROXINE 100MCG (0.1MG) TAB 100 MCG PO (06:07)
[2025-04-13] MEDS: HYDROCODONE/APAP 5/325 MG TABLET 1 TAB PO ×5 (06:07→20:44)
[2025-04-13 06:10] LABS: Basophils % 0.2 % (0.1-2.0); Eosinophils % 0.2 % (0.1-12.0); Hematocrit 34.9 % (37.0-47.0); Hemoglobin 10.7 g/dL (12.2-16.2); Immature Granulocytes # 0.07 10^3uL; Immature Granulocytes % 0.6 %; Lymphocytes # 0.6 K/mm3 (0.7-4.5); Lymphocytes % 4.7 % (10-50); Mean Corpuscular HGB Conc 30.7 g/dL (31.8-35.4); Mean Corpuscular Hemoglobin 26.2 pg (27.0-31.2); Mean Corpuscular Volume 85.3 fl (81-99); Mean Platelet Volume 9.5 fl (7.4-10.4); Monocytes # 0.6 K/mm3 (0.1-1.0); Monocytes % 4.4 % (1.7-9.3); Neutrophils # 11.4 K/mm3 (1.8-7.8); Neutrophils % 89.9 % (37.0-80.0); Nucleated Red Blood Cells # 0 10^3/uL; Nucleated Red Blood Cells % 0 %; Platelet Count 179 K/mm3 (142-424); Red Blood Count 4.09 M/mm3 (4.20-5.40); Red Cell Distribution Width 15.2 % (11.5-17.5); Red Cell Distribution Width-SD 46.9 fL; White Blood Count 12.6 K/mm3 (4.8-10.8)
[2025-04-13] MEDS: ENOXAPARIN 40MG/0.4ML SYRINGE 40 MG SUBCUT (09:40)
[2025-04-13] MEDS: DOCUSATE SODIUM 100 MG CAPSULE PO (09:40)
--- NOTE | 2025-04-13 09:45 | P.PN_ITS ---
Subjective Patient reports: feels better Exam Data for Last 24 hours Vital signs and Labs for Last 24 Hours: Temp Pulse Resp BP Pulse Ox O2 Del Method 98.2 F 77 16 107/65 L 95 Room Air 04/13/25 09:03 04/13/25 09:03 04/13/25 09:03 04/13/25 09:03 04/13/25 09:03 04/13/25 09:03 Laboratory Results - last 24 hr 04/12/25 12:38: POC Glucose 112 H 04/13/25 05:04: POC Glucose 92 04/13/25 05:09: WBC 12.6 H, RBC 4.09 L, Hgb 10.7 L, Hct 34.9 L, MCV 85.3, MCH 26.2 L, MCHC 30.7 L, RDW 15.2, Plt Count 179, MPV 9.5, Neut % (Auto) 89.9 H, Lymph % (Auto) 4.7 L, [place] % (Auto) 4.4, Eos % (Auto) 0.2, Baso % (Auto) 0.2, Neut # (Auto) 11.4 H, Lymph # (Auto) 0.6 L, [place] # (Auto) 0.6, Eos # (Auto) 0.0, Baso # (Auto) 0.0 I & O for Last 24 hours: Intake & Output 04/10/25 04/11/25 04/12/25 04/13/25 11:59 11:59 11:59 11:59 Intake Total 1000 / 1000 1090 / 1090 Output Total 600 / 600 1100 / 1100 Balance 400 / 400 -10 / -10 Weight 191 lb 11.2 oz 187 lb 3.2 oz Microbiology Reports for the Last 24 Hours: Microbiology 04/11/25 19:25 Blood Blood Culture - Preliminary Gram Negative Rods 04/11/25 19:42 Blood Blood Culture - Preliminary NO GROWTH AFTER 24 HOURS Constitutional Constitutional: no acute distress *Routine Respiratory Exam Respiratory: Absent respiratory distress *Routine Cardiovascular Exam Cardiovascular: Absent tachycardia *Routine Abdominal Exam Comments: Dressings in place. No erythema. Progress Note: A&P Assessment and plan (1) Acute cholecystitis due to biliary calculus: Status: Acute (2) Abnormal LFTs: Status: Acute (3) Hyperbilirubinemia: Status: Acute Assessment and Plan Assessment and Plan for All Diagnoses:: Overall, doing fairly well postoperative day 1 status post laparoscopic cholecystectomy. Hemoglobin stable this morning. LFTs pending. Slowly increase diet Follow-up pending labs
[2025-04-13 09:53] LABS: Alanine Aminotransferase 186 U/L (12-78); Albumin Level 3.4 g/dl (3.5-5.0); Albumin/Globulin Ratio 1.1 (1.1-1.8); Alkaline Phosphatase 119 U/L (38-126); Anion Gap 9.9 mEq/L (5-15); Aspartate Amino Transferase 275 U/L (14-36); Bilirubin,Total 1.4 mg/dl (0.2-1.3); Blood Urea Nitrogen 15 mg/dl (7-17); Calcium 8.6 mg/dl (8.4-10.2); Carbon Dioxide 24 mmol/L (22.0-30.0); Chloride 110 mmol/L (98-107); Creatinine Clearance Estimated 78 mL/min (50-200); Estimated Glomerular Filt Rate 56 ml/min (>60); GFR (African American) 68 ML/MIN (>60); Glucose 127 mg/dl (74-100); Potassium 3.9 mmoL/L (3.5-5.1); Sodium 140 mmol/L (136-145); Total Protein,Serum 6.4 g/dl (6.3-8.2)
[2025-04-13 11:37] LABS: POC Glucose,Bedside 130 (70-110)
[2025-04-13] MEDS: humaLOG 100 UNITS/ML 10ML VIAL (SSI) SUBCUT (16:41)
[2025-04-13 17:10] LABS: POC Glucose,Bedside 196 (70-110)
[2025-04-13] MEDS: MIRTAZAPINE 15 MG TABLET 30 MG PO (20:44)
[2025-04-13] MEDS: PANTOPRAZOLE 40MG TABLET 40 MG PO (20:44)
[2025-04-13 21:02] LABS: POC Glucose,Bedside 144 (70-110)
--- NOTE | 2025-04-13 21:49 | P.PN_ITS ---
Subjective *Date: 04/24/25 *Time: 18:20 Interval history: Patient feeling better today, no acute concerns. Wants to continue with full liquid diet for today, consider solids tomorrow. Exam Data for Last 24 hours Vital signs and Labs for Last 24 Hours: Temp Pulse Resp BP Pulse Ox O2 Del Method 98.3 F 75 16 105/63 L 96 Room Air 04/13/25 20:00 04/13/25 20:00 04/13/25 20:00 04/13/25 20:00 04/13/25 20:00 04/13/25 21:00 Laboratory Results - last 24 hr 04/13/25 05:04: POC Glucose 92 04/13/25 05:09: WBC 12.6 H, RBC 4.09 L, Hgb 10.7 L, Hct 34.9 L, MCV 85.3, MCH 26.2 L, MCHC 30.7 L, RDW 15.2, Plt Count 179, MPV 9.5, Neut % (Auto) 89.9 H, Lymph % (Auto) 4.7 L, [place] % (Auto) 4.4, Eos % (Auto) 0.2, Baso % (Auto) 0.2, Neut # (Auto) 11.4 H, Lymph # (Auto) 0.6 L, [place] # (Auto) 0.6, Eos # (Auto) 0.0, Baso # (Auto) 0.0 04/13/25 08:35: Sodium 140, Potassium 3.9, Chloride 110 H, Carbon Dioxide 24, Anion Gap 9.9, BUN 15, Creatinine 1.00, Estimated Creat Clear 78, Estimated GFR 56 L, Est GFR ( Amer) 68, Glucose 127 H, Calcium 8.6, Total Bilirubin 1.4 H, AST 275 H, ALT 186 H, Alkaline Phosphatase 119, Total Protein 6.4, Albumin 3.4 L, Globulin 3.0, Albumin/Globulin Ratio 1.1 04/13/25 11:25: POC Glucose 130 H 04/13/25 16:40: POC Glucose 196 H 04/13/25 20:42: POC Glucose 144 H I & O for Last 24 hours: Intake & Output 04/10/25 04/11/25 04/12/25 04/13/25 23:59 23:59 23:59 23:59 Intake Total 1600 / 1820 1380 / 1380 Output Total 200 / 200 1150 / 1150 950 / 950 Balance -200 / 800 450 / 670 430 / 430 Weight 84.595 kg 86.9 kg 84.912 kg Microbiology Reports for the Last 24 Hours: Microbiology 04/11/25 19:42 Blood Blood Culture - Preliminary NO GROWTH AFTER 48 HOURS 04/11/25 19:25 Blood Blood Culture - Preliminary Gram Negative Rods Constitutional Constitutional: no acute distress *Routine Respiratory Exam Respiratory: Absent respiratory distress *Routine Cardiovascular Exam Cardiovascular: Absent tachycardia *Routine Abdominal Exam Comments: Dressings in place. No erythema. Assessment and Plan *Assessment and plan (1) Acute cholecystitis due to biliary calculus: Status: Acute Category: Medical Code(s): K80.00 - Calculus of gallbladder with acute cholecystitis without obstruction Plan Bella Presley is a 60-year-old female who presented with nausea /vomiting/diarrhea and weakness and was found to have UTI, E. coli bacteremia, and acute cholecystitis. #Acute cholecystitis ? Presented with nausea/vomiting with significant transaminitis. RUQ ultrasound suggestive of acute cholecystitis. ? General Surgery consulted, s/p laparoscopic cholecystectomy on 04/12/2025. - AST/ALT/bilirubin improving. Discussed with general surgery, recommend following up on LFTs in the morning. If improving, consider discharge. ? General Surgery recommending slow advancement in diet due to severe pericholecystic fat stranding inflammation. Advance to full liquid diet. ? Continue Zosyn. #UTI #E. coli bacteremia ? Continue cefepime. ? Follow-up on sensitivities. #Type 2 diabetes ? Hemoglobin A1c 6.5%. ? LDSSI, ACHS blood cultures. #Hypertension ? Hold home metformin. Blood pressure stable here. #Hypothyroidism ? Continue home levothyroxine 100 mcg. TFTs normal. Full code DVT prophylaxis: Lovenox 40 mg
[2025-04-14] VITALS: BP 110/67; PULSE 70; PULSE 74; RESP 18; TEMP 36.8; O2SAT 94
[2025-04-14] MEDS: CEFEPIME HCL 2 GM in 0.9 % SODIUM CHLORIDE 100 ML IV ×2 (00:24→08:50)
[2025-04-14] MEDS: METRONIDAZ/SOD CHL 500 MG/100 ML PIGGYBACK 100 MG IV (00:24)
[2025-04-14 04:00] VITALS: BP 130/77; PULSE 80; PULSE 82; RESP 18; TEMP 36.8; O2SAT 95
[2025-04-14] MEDS: HYDROCODONE/APAP 5/325 MG TABLET 1 TAB PO (04:06)
[2025-04-14 05:26] LABS: POC Glucose,Bedside 141 (70-110)
[2025-04-14 05:26] LABS: POC Glucose,Bedside 107 (70-110)
[2025-04-14] MEDS: LEVOTHYROXINE 100MCG (0.1MG) TAB 100 MCG PO (06:10)
[2025-04-14 06:28] LABS: Basophils % 0.2 % (0.1-2.0); Eosinophils # 0.2 Kmm3 (0.0-0.4); Hematocrit 34.1 % (37.0-47.0); Hemoglobin 10.3 g/dL (12.2-16.2); Immature Granulocytes # 0.04 10^3uL; Immature Granulocytes % 0.5 %; Lymphocytes # 0.9 K/mm3 (0.7-4.5); Lymphocytes % 10.3 % (10-50); Mean Corpuscular HGB Conc 30.2 g/dL (31.8-35.4); Mean Corpuscular Hemoglobin 25.4 pg (27.0-31.2); Mean Platelet Volume 9.2 fl (7.4-10.4); Monocytes # 0.5 K/mm3 (0.1-1.0); Monocytes % 5.3 % (1.7-9.3); Neutrophils # 7.2 K/mm3 (1.8-7.8); Neutrophils % 81.7 % (37.0-80.0); Nucleated Red Blood Cells # 0 10^3/uL; Nucleated Red Blood Cells % 0 %; Platelet Count 189 K/mm3 (142-424); Red Blood Count 4.06 M/mm3 (4.20-5.40); Red Cell Distribution Width 15.4 % (11.5-17.5); Red Cell Distribution Width-SD 47.2 fL; White Blood Count 8.8 K/mm3 (4.8-10.8)
[2025-04-14 08:00] VITALS: BP 109/70; PULSE 80; PULSE 82; RESP 18; TEMP 36.5; O2SAT 100
[2025-04-14] MEDS: ENOXAPARIN 40MG/0.4ML SYRINGE 40 MG SUBCUT (08:50)
[2025-04-14] MEDS: DOCUSATE SODIUM 100 MG CAPSULE PO (08:51)
[2025-04-14] MEDS: metroNIDAZOLE 500 MG TABLET PO (08:51)
[2025-04-14] MEDS: ACETAMINOPHEN 325MG TAB 650 MG PO (08:56)
[2025-04-14 09:00] LABS: Alanine Aminotransferase 161 U/L (12-78); Albumin/Globulin Ratio 1.2 (1.1-1.8); Alkaline Phosphatase 115 U/L (38-126); Anion Gap 11.8 mEq/L (5-15); Aspartate Amino Transferase 169 U/L (14-36); Bilirubin,Total 0.8 mg/dl (0.2-1.3); Blood Urea Nitrogen 10 mg/dl (7-17); Calcium 8.3 mg/dl (8.4-10.2); Carbon Dioxide 23 mmol/L (22.0-30.0); Chloride 112 mmol/L (98-107); Creatinine Clearance Estimated 78 mL/min (50-200); Estimated Glomerular Filt Rate 63 ml/min (>60); GFR (African American) 77 ML/MIN (>60); Globulin 2.6 g/dL (1.3-3.2); Glucose 97 mg/dl (74-100); Potassium 3.8 mmoL/L (3.5-5.1); Sodium 143 mmol/L (136-145); Total Protein,Serum 5.6 g/dl (6.3-8.2)
--- NOTE | 2025-04-14 09:45 | EXP.SURG.PN ---
Subjective Patient reports: feels better Exam Data for Last 24 hours Vital signs and Labs for Last 24 Hours: Temp Pulse Resp BP Pulse Ox O2 Del Method 97.7 F 82 18 109/70 L 100 Room Air 04/14/25 08:00 04/14/25 08:00 04/14/25 08:00 04/14/25 08:00 04/14/25 08:00 04/14/25 09:00 Laboratory Results - last 24 hr 04/12/25 20:36: POC Glucose 141 H 04/13/25 08:35: Sodium 140, Potassium 3.9, Chloride 110 H, Carbon Dioxide 24, Anion Gap 9.9, BUN 15, Creatinine 1.00, Estimated Creat Clear 78, Estimated GFR 56 L, Est GFR ( Amer) 68, Glucose 127 H, Calcium 8.6, Total Bilirubin 1.4 H, AST 275 H, ALT 186 H, Alkaline Phosphatase 119, Total Protein 6.4, Albumin 3.4 L, Globulin 3.0, Albumin/Globulin Ratio 1.1 04/13/25 11:25: POC Glucose 130 H 04/13/25 16:40: POC Glucose 196 H 04/13/25 20:42: POC Glucose 144 H 04/14/25 05:13: POC Glucose 107 04/14/25 05:40: WBC 8.8 D, RBC 4.06 L, Hgb 10.3 L, Hct 34.1 L, MCV 84.0, MCH 25.4 L, MCHC 30.2 L, RDW 15.4, Plt Count 189, MPV 9.2, Neut % (Auto) 81.7 H, Lymph % (Auto) 10.3, [place] % (Auto) 5.3, Eos % (Auto) 2.0, Baso % (Auto) 0.2, Neut # (Auto) 7.2, Lymph # (Auto) 0.9, [place] # (Auto) 0.5, Eos # (Auto) 0.2, Baso # (Auto) 0.0, Sodium 143, Potassium 3.8, Chloride 112 H, Carbon Dioxide 23, Anion Gap 11.8, BUN 10 D, Creatinine 0.90, Estimated Creat Clear 78, Estimated GFR 63, Est GFR ( Amer) 77, Glucose 97 D, Calcium 8.3 L, Total Bilirubin 0.8, AST 169 H D, ALT 161 H, Alkaline Phosphatase 115, Total Protein 5.6 L, Albumin 3.0 L D, Globulin 2.6, Albumin/Globulin Ratio 1.2 I & O for Last 24 hours: Intake & Output 04/11/25 04/12/25 04/13/25 04/14/25 11:59 11:59 11:59 11:59 Intake Total 1000 / 1000 1090 / 1090 1350 / 1350 Output Total 600 / 600 1100 / 1100 1900 / 1900 Balance 400 / 400 -10 / -10 -550 / -550 Weight 191 lb 11.2 oz 187 lb 3.2 oz 187 lb 3.288 oz Microbiology Reports for the Last 24 Hours: Microbiology 04/11/25 20:46 Urine,Clean Catch Urine Culture - Final Multiple organisms, suggests contamination. 04/11/25 19:25 Blood Blood Culture - Preliminary Escherichia coli 04/11/25 19:42 Blood Blood Culture - Preliminary NO GROWTH AFTER 48 HOURS Constitutional Constitutional: no acute distress *Routine Respiratory Exam Respiratory: Absent respiratory distress *Routine Cardiovascular Exam Cardiovascular: Absent tachycardia *Routine Abdominal Exam Comments: Incisions healing without evidence of infection. Progress Note: A&P Assessment and plan (1) Acute cholecystitis due to biliary calculus: Status: Acute (2) Abnormal LFTs: Status: Acute Assessment and plan: Transaminases improving. (3) Hyperbilirubinemia: Status: Resolved Assessment and plan: Resolved Assessment and Plan Assessment and Plan for All Diagnoses:: Overall, doing fairly well postoperative day 2 status post laparoscopic cholecystectomy. Hemoglobin stable. Bilirubin normalized Okay from surgical standpoint for discharge home with close outpatient follow-up
--- NOTE | 2025-04-14 11:09 | EXP.DC.SUM ---
General Admission date:: 04/11/25 HPI HPI HPI: This is a 60-year-old female who presented to the emergency department with increasing nausea, vomiting, and vague abdominal complaints. No specific pain but she did note tenderness to palpation. Evaluation initially included CT scan that revealed no abnormality with regard to her biliary tree. Follow-up ultrasound revealed likely nonshadowing stones, sludge, wall thickening, and trace pericholecystic fluid consistent with possible acute cholecystitis. She remains somewhat nauseous but continues to to have no complaints of severe abdominal pain. Forwarded from admission H&P/emergency department evaluation: Patient presents for evaluation of 3-week history of vomiting with no diarrhea, dizziness and lightheadedness especially when standing and headache. She went to her PCP today who noted that she had a significantly low blood pressure and high heart rate. Patient was recently diagnosed as a diabetic and started on metformin. She currently denies chest pain fever chills hemoptysis hematochezia melena hematemesis hematuria. Patient states her last bowel movement was yesterday. Reportedly having worsening general malaise and general weakness over the past 3 weeks. Had 1 fall 2 weeks ago following lightheadedness. Having bilateral periumbilical pain, colicky in nature, alleviated by bowel movements. No association with food intake as she has largely been anorexic. In the emergency occupational therapy department chair and neck imaging was obtained which was largely unremarkable. CT abdomen pelvis largely unremarkable however demonstrates atherosclerotic calcific aortoiliac disease. She also has a nonobstructive right renal calculus Hospital Course Hospital Course Hospital Course: Bella Presley is a 60-year-old female who presented with nausea/vomiting/diarrhea and weakness and was found to have UTI, E. coli bacteremia, and acute cholecystitis. #Acute cholecystitis ? Presented with nausea/vomiting with significant transaminitis. RUQ ultrasound suggestive of acute cholecystitis. ? General Surgery consulted, s/p laparoscopic cholecystectomy on 04/12/2025. Recommended slowly advancing diet and following up on LFTs which improved. ? Tolerating p.o. intake without issues. Treated with cefepime. No signs of sepsis. ? Advised to follow-up with general surgery within 2 weeks. #UTI #E. coli bacteremia ? Treated with cefepime. Discharged with levofloxacin for 6 more days due to E. coli bacteremia. #Type 2 diabetes ? Hemoglobin A1c 6.5%. Continue home metformin. #Hypertension ? Hold lisinopril until follow-up with PCP. Blood pressure is low normal. #Hypothyroidism ? Continue home levothyroxine 100 mcg. TFTs normal. Total time spent on discharge: 31 minutes on chart review, counseling, documentation, and direct care with patient. Exam Data for Last 24 hours Vital signs and Labs for Last 24 Hours: Temp Pulse Resp BP Pulse Ox O2 Del Method 97.7 F 82 18 109/70 L 100 Room Air 04/14/25 08:00 04/14/25 08:00 04/14/25 08:00 04/14/25 08:00 04/14/25 08:00 04/14/25 09:00 Laboratory Results - last 24 hr 04/12/25 20:36: POC Glucose 141 H 04/13/25 11:25: POC Glucose 130 H 04/13/25 16:40: POC Glucose 196 H 04/13/25 20:42: POC Glucose 144 H 04/14/25 05:13: POC Glucose 107 04/14/25 05:40: WBC 8.8 D, RBC 4.06 L, Hgb 10.3 L, Hct 34.1 L, MCV 84.0, MCH 25.4 L, MCHC 30.2 L, RDW 15.4, Plt Count 189, MPV 9.2, Neut % (Auto) 81.7 H, Lymph % (Auto) 10.3, Dixie % (Auto) 5.3, Eos % (Auto) 2.0, Baso % (Auto) 0.2, Neut # (Auto) 7.2, Lymph # (Auto) 0.9, Dixie # (Auto) 0.5, Eos # (Auto) 0.2, Baso # (Auto) 0.0, Sodium 143, Potassium 3.8, Chloride 112 H, Carbon Dioxide 23, Anion Gap 11.8, BUN 10 D, Creatinine 0.90, Estimated Creat Clear 78, Estimated GFR 63, Est GFR ( Amer) 77, Glucose 97 D, Calcium 8.3 L, Total Bilirubin 0.8, AST 169 H D, ALT 161 H, Alkaline Phosphatase 115, Total Protein 5.6 L, Albumin 3.0 L D, Globulin 2.6, Albumin/Globulin Ratio 1.2 I & O for Last 24 hours: Intake & Output 04/11/25 04/12/25 04/13/25 04/14/25 23:59 23:59 23:59 23:59 Intake Total 1600 / 1820 1380 / 1740 700 / 700 Output Total 200 / 200 1150 / 1150 950 / 950 1300 / 1300 Balance -200 / 800 450 / 670 430 / 790 -600 / -600 Weight 84.595 kg 86.9 kg 84.912 kg 84.915 kg Microbiology Reports for the Last 24 Hours: Microbiology 04/11/25 20:46 Urine,Clean Catch Urine Culture - Final Multiple organisms, suggests contamination. 04/11/25 19:25 Blood Blood Culture - Preliminary Escherichia coli 04/11/25 19:42 Blood Blood Culture - Preliminary NO GROWTH AFTER 48 HOURS Constitutional Constitutional: no acute distress *Routine Respiratory Exam Respiratory: Absent respiratory distress *Routine Cardiovascular Exam Cardiovascular: Absent tachycardia *Routine Abdominal Exam Comments: Incisions healing without evidence of infection. Results Data Completed and Pending Labs on day of discharge: Labs from last 24 hours 04/14/25 04/14/25 04/13/25 05:40 05:13 20:42 WBC 8.8 D RBC 4.06 L Hgb 10.3 L Hct 34.1 L MCV 84.0 MCH 25.4 L MCHC 30.2 L RDW 15.4 Plt Count 189 MPV 9.2 Neut % (Auto) 81.7 H Lymph % (Auto) 10.3 Dixie % (Auto) 5.3 Eos % (Auto) 2.0 Baso % (Auto) 0.2 Neut # (Auto) 7.2 Lymph # (Auto) 0.9 Dixie # (Auto) 0.5 Eos # (Auto) 0.2 Baso # (Auto) 0.0 Sodium 143 Potassium 3.8 Chloride 112 H Carbon Dioxide 23 Anion Gap 11.8 BUN 10 D Creatinine 0.90 Estimated Creat Clear 78 Estimated GFR 63 Est GFR ( Amer) 77 Glucose 97 D POC Glucose 107 144 H Calcium 8.3 L Total Bilirubin 0.8 AST 169 H D ALT 161 H Alkaline Phosphatase 115 Total Protein 5.6 L Albumin 3.0 L D Globulin 2.6 Albumin/Globulin Ratio 1.2 04/13/25 04/13/25 04/12/25 16:40 11:25 20:36 WBC RBC Hgb Hct MCV MCH MCHC RDW Plt Count MPV Neut % (Auto) Lymph % (Auto) Dixie % (Auto) Eos % (Auto) Baso % (Auto) Neut # (Auto) Lymph # (Auto) Dixie # (Auto) Eos # (Auto) Baso # (Auto) Sodium Potassium Chloride Carbon Dioxide Anion Gap BUN Creatinine Estimated Creat Clear Estimated GFR Est GFR ( Amer) Glucose POC Glucose 196 H 130 H 141 H Calcium Total Bilirubin AST ALT Alkaline Phosphatase Total Protein Albumin Globulin Albumin/Globulin Ratio Preliminary micro results at discharge 04/11/25 19:25 Blood Culture - Preliminary Blood Escherichia coli 04/11/25 19:42 Blood Culture - Preliminary Blood NO GROWTH AFTER 48 HOURS DS: Diagnosis Discharge Diagnosis (1) Acute cholecystitis due to biliary calculus: Status: Acute Code(s): K80.00 - Calculus of gallbladder with acute cholecystitis without obstruction (2) Abnormal LFTs: Status: Acute Code(s): R79.89 - Other specified abnormal findings of blood chemistry (3) Hyperbilirubinemia: Status: Resolved Code(s): E80.6 - Other disorders of bilirubin metabolism Meds Home Medications and Allergies Home Medications ?Medication ?Instructions ?Recorded ?Confirmed ?Type cariprazine 1.5 mg capsule 1.5 mg PO DAILY #30 caps 12/28/23 04/11/25 Rx (Vraylar) mirtazapine 30 mg tablet (Remeron) 30 mg PO HS #30 tabs 12/28/23 04/11/25 Rx levothyroxine 100 mcg tablet 100 mcg PO DAILY thyroid #90 tabs 01/04/24 04/11/25 Rx (Synthroid) alendronate 70 mg tablet 70 mg PO WEEKLY 04/11/25 04/11/25 History baclofen 10 mg tablet 10 mg PO TID 04/11/25 04/12/25 History cholecalciferol (vitamin D3) 1,250 1,250 mcg PO WEEKLY vitamin d 04/11/25 04/12/25 History mcg (50,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 lisinopril 2.5 mg tablet 2.5 mg PO DAILY 04/11/25 04/11/25 History Held on 04/14/25. Instructions: Resume on 04/28/25. Your blood pressures have been normal without this medication. Please continue to hold until follow-up with PCP. metformin 500 mg tablet,extended 500 mg PO DAILY 04/11/25 04/11/25 History release 24 hr tramadol 50 mg tablet 50 mg PO TID 04/11/25 04/11/25 History atorvastatin 10 mg tablet 10 mg PO HS 04/12/25 04/11/25 History ubrogepant 100 mg tablet (Ubrelvy) 100 mg PO DAILYP PRN migraine 04/12/25 04/12/25 History headache levofloxacin 750 mg tablet 750 mg PO DAILY 6 days #6 tabs 04/14/25 Rx New Prescriptions to Start Prescriptions: levofloxacin Guilherme Ontiveros Allergies Allergy/AdvReac Type Severity Reaction Status Date / Time sumatriptan (From IMITREX) Allergy Severe S-DROP IN Verified 01/01/25 09:50 B/P Penicillins (PENICILLINS) Allergy Intermediate I-HIVES Verified 01/01/25 09:50 topiramate (From Topamax) Allergy Intermediate S-DROP IN Verified 01/01/25 09:50 B/P Discharge Plan Disposition Patient Disposition: Home, Self-Care Condition: Fair Discharge Order Discharge Orders: Discharge Order (Routine); Ordered 04/14/25 Ordered By: Guilherme Ontiveros Follow up Plan Follow up with: Sobeida Richmond PA [Primary Care Provider, Medical] - 04/19/25 1:30 pm Tha Dee MD [Staff Physician, General Surgery] - 04/17/25 2:30 pm Prescriptions/Medication Reconciliation: New levofloxacin 750 mg tablet 750 mg PO DAILY 6 Days Qty: 6 0RF Continued Vraylar 1.5 mg capsule 1.5 mg PO DAILY Qty: 30 2RF mirtazapine [Remeron] 30 mg tablet 30 mg PO HS Qty: 30 2RF levothyroxine [Synthroid] 100 mcg tablet 100 mcg PO DAILY Qty: 90 0RF Rx Instructions: 50 mcg's for 14 days and 100 mcg's after that alendronate 70 mg tablet 70 mg PO WEEKLY tramadol 50 mg tablet 50 mg PO TID baclofen 10 mg tablet 10 mg PO TID metformin 500 mg tablet extended release 24 hr 500 mg PO DAILY cholecalciferol (vitamin D3) 1,250 mcg (50,000 unit) capsule 1,250 mcg PO WEEKLY atorvastatin 10 mg tablet 10 mg PO HS Ubrelvy 100 mg tablet 100 mg PO DAILYP PRN (Reason: migraine headache) Held lisinopril 2.5 mg tablet 2.5 mg PO DAILY Hold Instructions: Resume on 04/28/25. Your blood pressures have been normal without this medication. Please continue to hold until follow-up with PCP. Problem Reconciliation Problems Reviewed?: Yes Patient Discharge Instructions Patient Instructions: DI for Escherichia Coli (E. Coli) Infection, Carbohydrate-Counting Diet, DI for Urinary Tract Infection (UTI), DI for Surgical Site Infection, DI for Sepsis -- Adult, DI for Hypomagnesemia, DI for Laparoscopic Cholecystectomy, DI for Bacteremia-Adult, Diabetes Diet Label Reading Tips, Stop Light Infection Print Language: Korean Providers Primary Care Provider: Sobeida Richmond Admit Provider: Guilherme Ontiveros Attending Provider: Guilherme Ontiveros
[2025-04-14 11:15] LABS: Thyroid Stimulating Hormone 4.18 uIU/mL (0.465-4.68)
[2025-04-14 12:00] VITALS: PULSE 70
[2025-04-15 06:49] LABS: POC Glucose,Bedside 139 (70-110)
--- NOTE | 2025-04-16 07:57 | P.PNANES_ITS ---
[facility] Anesthesia Record Part II Anesthesia Record Part II Discharge Time: 17:05 Destination: Medical Surgical Department PACU nurse assessment reviewed?: Yes Patient Condition:: Good Anesthesia Complications:: None Swallowing reflex intact?: Yes Airway Patency: Patent Cyanosis?: No Blood Pressure: 110/70 SaO2: 97 Respiratory Rate: 16 Pulse Rate: 72 Temperature: 97.7 F Mental Status: Alert & Oriented Pain level:: 0 Nausea and/or vomitting:: None Intake, IV Amount: 0 Hydration: Adequate
[2025-04-16 07:58] VITALS: BP 110/70; PULSE 72; RESP 16; TEMP 36.5; O2SAT 97
--- NOTE | 2025-04-16 11:15 | SW/DCPLANNER ---
Spoke with patient on the phone. Patient stated that she is doing good. Patient stated that she is aware of her upcoming appointments. Patient stated that she was able to get her new medicine picked up from [facility]. Patient stated that she has no concerns or questions at this time. Al Hilton
== END 2025-04-14 12:04 | disposition home or self-care (01) | DRG 854 ==
LOC: ER 21:35 → 2ND 22:16
PROVIDERS: Physician Assistant; Student in an Organized Health Care Education/Training Program; Surgery; Admitting Provider Student in an Organized Health Care Education/Training Program; Emergency Provider Emergency Medicine; PCP Physician Assistant; Visit Provider Student in an Organized Health Care Education/Training Program
PROC: 0FT44ZZ Resection of Gallbladder, Percutaneous Endoscopic Approach (ICD-10-PCS; CPT 47562; principal; 2025-04-12 14:15)
DX: A41.51 Sepsis due to Escherichia coli [E. coli] (principal); K80.00 Calculus of gallbladder with acute cholecystitis without obstruction; N39.0 Urinary tract infection, site not specified; N17.9 Acute kidney failure, unspecified; E11.9 Type 2 diabetes mellitus without complications; E78.5 Hyperlipidemia, unspecified; G43.909 Migraine, unspecified, not intractable, without status migrainosus; E03.9 Hypothyroidism, unspecified; R74.01 Elevation of levels of liver transaminase levels; E83.42 Hypomagnesemia; N20.9 Urinary calculus, unspecified; Z79.899 Other long term (current) drug therapy; Z79.890 Hormone replacement therapy; Z91.81 History of falling; Z79.85 Long-term (current) use of injectable non-insulin antidiabetic drugs; Z79.84 Long term (current) use of oral hypoglycemic drugs
CPT/HCPCS: 36415; 70450; 70496; 70498; 71045; 74177; 76705; 80053; 80061; 81001; 82009; 82803; 82962; 83036; 83605; 83690; 83735; 84100; 84145; 84443; 84484; 85007; 85025; 85610; 85651; 86140; 87040; 87077; 87086; 87154; 87186; 88304; 93005; 93306; 97163; 97166; J0131; J0692; J0736; J1100; J1650; J1836; J1885; J1956; J2003; J2250; J2371; J2405; J2704; J3010; J3372; J3475; J7030; J7120; Q9967

== ENCOUNTER 2025-09-02 17:00 | Observation (INO) | payer MEDICARE, SELFPAY ==
[2025-09-02] VITALS (13 sets, daily range): BP systolic 108–130; BP diastolic 61–79; PULSE 67–96; RESP 13–22; TEMP 36.5–36.6; O2SAT 95–100; BMI 27.4; BMI 26.9
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
--- OUTSIDE RECORDS SUMMARY | 2025-09-02 17:14 | XMS_ITS | Continuity of Care Document ---
Author Organization [place] [employer] [facility] Address [address] [place] [address] Assessment No assessment recorded. Plan of Treatment Reminders Order Date Submit Date Provider Last Modified By Organization Details Last Modified Time Details Appointments FOLLOW UP 15 2024 04:45P M Sobeida Richmond PA-C Not available Not available Not available Lab None recorded. Referral EGD referral 2024 025 Vijay Flores MD, [address], [place], [address], 08/30/2025 15:15:07 Procedures None recorded. Surgeries None recorded. Imaging None recorded. Medication Orders None recorded. Patient TargetsNo targets recorded. Patient Instructions Encounter Date Encounter Id Patient Instructions Last Modified By Organization Details Last Modified Time 08/20/2025 [id number] anorexia: care instructions [email or web address] Not available 08/23/2025 14:54:08 grief (actual/anticipat ed): care instructions [email or web address] Not available 08/23/2025 14:51:17 type 2 diabetes: care instructions [email or web address] Not available 08/23/2025 14:51:17 hypothyroidism: care instructions Not available 08/23/2025 14:51:17 high cholesterol : care instructions Not available 08/23/2025 14:51:17 learning about mood disorders [email or web address] Not available 08/23/2025 14:51:17 Reason for Referral EGD Referral for Loss of tanvi etite Referring Physician: Sobeida Richmond, Family Medicine, Encounter Date: 08/20/2025 Problems Name Problem SNOMED Code Status Onset Date Resolution Date Notes Provider Name and Address Organization Details Recorded Time Chronic neck pain 900613980353 7 Active 2023 TONY Tim [address] [place] [address], [address]16[address] 8, [employer] 4 10:34:35 Cervical spondylos is 846761749 Active 2023 TONY Tim [address] [place] [address], 34812[address]927 8, [employer] 4 10:34:48 Hypothyro idism 36790862 Active 2023 TONY Tim [address] [place] [address], 16707[address]483 8, [employer] 10:35:00 Migraine 28710561 Active 2023 TONY Tim [address] [place] [address], 98347[address]021 8, [employer] 5 13:15:35 Hyperlipi demia 99688129 Active 2023 TONY Tim [address] [place] [address], 47167[address]156 8, [employer] 10:35:31 Depressiv e disorder 03195148 Active 2023 TONY Tim [address] [place] [address], 43[address]502 8, [employer] 10:36:00 Influenza A virus present 250640237665 Completed 202301/10/2025 TONY Tim [address] [place] [address], 75743-552 8, [employer] 5 13:25:22 Chronic kidney disease 439041542 Active 2023 TONY Tim [address] [place] [address], 19943-189 8, [employer] 4 13:08:43 Acute right otitis media 661238926 Completed 202301/10/2025 TONY Tim [address] [place] [address], 49545-745 8, [employer] 5 13:25:10 Generaliz ed anxiety disorder 19413305 Active 2023 TONY Tim [address] [place] [address], 91537-677 8, [employer] 4 13:08:53 Vitamin D deficienc y 83465872 Active 2023 TONY Tim [address] [place] [address], 00671-927 8, [employer] 4 13:08:48 Newly diagnosed diabetes 600342517 Active 2023 TONY Tim [address] [place] [address], 66742-753 8, [employer] 4 17:00:53 Type 2 diabetes mellitus without complicat ion 821168491 Active 2023 TONY Tim [address] [place] [address], 72403-546 8, [employer] 4 17:04:31 Diabetes mellitus 99748510 Active 2023 TONY Tim [address] [place] [address], 14096-836 8, [employer] 5 13:25:17 Fracture at wrist and/or hand level 732319844 Completed 202308/23/2025 TONY Tim [address] [place] [address], 05826-982 8, [employer] 5 14:50:11 Fracture of shoulder 481721530940 25706 Completed 202308/23/2025 TONY Tim [address] [place] [address], 60203-861 8, [employer] 5 14:50:07 Osteopeni a 512295568 Active 2024 TONY Tim [address] [place] [address], 61590-046 8, [employer] 14:58:45 Tachycard ia 2284014 Active 2024 TONY Tim [address] [place] [address], 82554-556 8, [employer] 15:28:41 Primary insomnia 8094672 Active 2024 TONY Tim [address] [place] [address], 23596-080 8, [employer] 17:14:39 Grief finding 126288152 Active 2024 TONY Tim [address] [place] [address], 24841-252 8, [employer] 14:51:12 Loss of appetite 55152356 Active 2024 TONY Tim [address] [place] [address], 52125-267 8, [employer] 14:54:01 Disorder of kidney due to diabetes mellitus 695238577 Active 2024 TONY Tim [address] [place] [address], 55123-901 8, [employer] 12:20:03 Problem Notes None recorded. Procedures Surgical History Date Name Laterality Status Provider Name and Address Organization Details Recorded Time Gallbladder Surgery completed Elvia Yepez [employer] 04/23/2025 16:45:35 Diabetic Foot Screen completed TONY Tim [address] [place] [address], [address], [employer] 03/07/2025 13:17:20 Caesarean Section completed [employer] 10/01/2024 10:06:43 Tubal Ligation completed [employer] 10/01/2024 10:06:43 Thyroid Surgery completed [employer] 10/01/2024 10:06:43 Imaging Results None recorded. Procedure Notes None recorded. Medical Equipment None Reported. Allergies Allergen ID Allergen Name Allergen Category Reaction Reaction Severity Criticality Documentation Date Start Date Code Code System Note Provider Name and Address Organization Details Recorded Time 19071 Product containin g penicilli n (product) medicatio n rash Not available Not available 10/01/2024 78255 8001 SNOMED Meg Vice null, [employer] 10:06:41 Medications Name Sig Start Date Stop Date Status Note LastModified by Organization Details LastModified Time methocarbam ol 500 mg tablet 12/13 completed Not Available Not Available Not Available promethazin e-DM 6.25 mg-15 mg/5 mL oral syrup Take 5 mL every 4 hours by oral route as needed for 7 days, for cough. 11/05 completed Not Available Not Available Not Available atorvastati n 10 mg tablet Take 1 tablet every day by oral route at bedtime for 90 days, for high cholester ol. 2024 active Not Available Not Available Not Avai lable azithromyci n 250 mg tablet 09/29 completed Not Available Not Available Not Available hydrocodone 5 mg-acetamin ophen 325 mg tablet 12/13 completed Not Available Not Available Not Available ondansetron HCl 4 mg tablet 12/13 completed Not Available Not Available Not Available tramadol 50 mg tablet Take 1 tablet 3 times a day by oral route as directed, for pain. 2024 active Not Available Not Available Not Avai lable levothyroxi ne 100 mcg tablet Take 1 tablet every day by oral route as directed for 90 days, for thyroid. 2024 active Not Available Not Available Not Avai lable Fosamax 70 mg tablet Take 1 tablet every week by oral route as directed for 90 days, for bones. 2024 active Not Available Not Available Not Avai lable trazodone 100 mg tablet Take 1 tablet every day by oral route at bedtime for 90 days. 2024 active Not Available Not Available Not Avai lable baclofen 10 mg tablet Take 1 tablet 3 times a day by oral route as directed for 90 days, for muscle spasm. 2024 active Not Available Not Available Not Avai lable levothyroxi ne 50 mcg tablet 12/30 /2024 completed Not Available Not Available Not Available mirtazapine 30 mg tablet Take 1 tablet every day by oral route as directed for 90 days, for anxiety. 06/20 completed Not Available Not Available Not Available Synthroid 88 mcg tablet Take 1 tablet every day by oral route for 90 days. 2024 active Not Available Not Available Not Avai lable alcohol swabs Apply 1 pad twice a day by topical route as directed for 30 days, for to check blood sugar. 2024 active Not Available Not Available Not Avai lable ergocalcife rol (vitamin D2) 1,250 mcg (50,000 unit) capsule Take 1 capsule every week by oral route as directed for 90 days, for Vitamin D deficienc y. 08/26 completed Not Available Not Available Not Available methylpredn isolone 4 mg tablets in a dose pack 09/29 completed Not Available Not Available Not Available ondansetron 4 mg disintegrat ing tablet 12/13 completed Not Available Not Available Not Available cefdinir 300 mg capsule Take 1 capsule every 12 hours by oral route as directed for 10 days, for infection . 11/05 completed Not Available Not Available Not Available metformin ER 500 mg tablet,exte nded release 24 hr Take 1 tablet every day by oral route as directed for 90 days, for diabetes. 2024 active Not Available Not Available Not Avai lable lisinopril 2.5 mg tablet Take 1 tablet every day by oral route as directed for 90 days, for kidney protectio n. 2024 active Not Available Not Available Not Avai lable oxycodone 5 mg tablet 11/05 completed Not Available Not Available Not Available Adult Low Dose Aspirin 81 mg tablet,santos yed release Take 1 tablet every day by oral route as directed for 90 days, for heart health. 2024 active Not Available Not Available Not Avai lable Calcium 600 + D(3) 600 mg-10 mcg (400 unit) tablet Take 1 tablet every day by oral route for 90 days, for bones. 2024 active Not Available Not Available Not Avai lable desvenlafax ine succinate ER 50 mg tablet,exte nded release 24 hr Take 1 tablet every day by oral route as directed for 90 days, for depressio n. 01/10 completed Not Available Not Available Not Available cholecalcif aruna (vitamin D3) 50 mcg (2,000 unit) capsule Take 1 capsule every day by oral route as directed for 90 days, for Vitamin D deficienc y. 08/26 completed Not Available Not Available Not Available TRUEplus Lancets 30 gauge active Not Available Not Available Not Available True Metrix Glucose Test Strip active Not Available Not Available N ot Available True Metrix Glucose Meter active Not Available Not Available Not Available Vraylar 1.5 mg capsule Take 1 capsule every day by oral route as directed for 90 days, for depressio n. 2024 active Not Available Not Available Not Avai lable Ubrelvy 100 mg tablet Take 1 tablet every day by oral route as needed for 30 days, for migraine. 2024 active Not Available Not Available Not Avai lable Nurtec ODT 75 mg disintegrat ing tablet Take 1 tablet as needed by oral route as directed for 30 days, for headache. 01/10 completed Not Available Not Available Not Available Kerendia 20 mg tablet Take 1 tablet every day by oral route for 90 days. 2024 active Not Available Not Available Not Avai lable Qulipta 60 mg tablet Take 1 tablet every day by oral route for 30 days, for migraine preventio n. 06/20 completed Not Available Not Available Not Available Vitals Date Recorded Body height Body mass index (BMI) Body weight Body temperature Heart rate Oxygen saturation Oxygen saturation in Arterial blood by Pulse oximetry Systolic And Diastolic Provider Name and Address Organization Details Last Updated DateTime 5 162.56 cm 29.6 kg/m2 97911.0 4 g 97.8 [degF] 104 /min 96 % 96 % 106/76 mm[Hg] Meg Hodge [employer] 17:09:10 Social History Question Answer Notes LastModified by Organizat ion Details LastModified Time Tobacco Smoking Status Never Smoker Meg Hodge [facility] [employer] 10/01/2024 10:06:43 Do You Have An Advance Directive? No Information not available 10/01/2024 Is Your Home Air Conditioned? Yes Information not available 10/01/2024 If You Are , What Was Your Level Of Alcohol Consumption Prior To ? None Information not available 10/01/2024 Do You Wear A Helmet When Biking? No Information not available 10/01/2024 Are You Blind Or Do You Have Difficulty Seeing? No Information not available 10/01/2024 What Is Your Level Of Caffeine Consumption? Occasional Information not available 10/01/2024 Are You A Caregiver? No Information not available 08/20/2025 What Type Of Tobacco Hanger Do You Use? None Information not available 10/01/2024 Have You Been To An Area Known To Be High Risk For COVID-19? No Information not available 10/01/2024 Are You Deaf Or Do You Have Serious Difficulty Hearing? No Information not available 10/01/2024 What Type Of Diet Are You Following? REGULAR Information not available 10/01/2024 What Is The Highest Grade Or Level Of School You Have Completed Or The Highest Degree You Have Received? [id number] Information not available 10/01/2024 How Many Days Of Moderate To Strenuous Exercise, Like A Brisk Walk, Did You Do In The Last 7 Days? 3 Information not available 08/20/2025 On Those Days That You Engage In Moderate To Strenuous Exercise, How Many Minutes, On Average, Do You Exercise? 0 Information not available 08/20/2025 Have There Been Any Changes To Your Family Or Social Situation? No Information no t available 10/01/2024 Are There Any Guns Present In Your Home? No Information not available 10/01/2024 Which Of Your Hands Is Dominant? Right Information not available 10/01/2024 Do You Engage In Moderate/heavy Exercise (e.g. Brisk Walk, Jogging, Strength Training, Etc)? Yes Information not available 08/20/2025 What Is Your Home Situation? Relatives Information not available 10/01/2024 How Many Times In The Past Year Have You Used An Illegal Drug Or Used A Prescription Medication For Nonmedical Reasons? 0 Information not available 08/20/2025 Where Do You Live? Apartment Information not available 08/20/2025 Do You Have A Medical Power Of Motorcycle Police Officer? No Information not available 10/01/2024 What Was The Date Of Your Most Recent Tobacco Screening? 08/20/2025 Information not available 08/20/2025 Do You Have Any Pets? No Information not available 10/01/2024 What Is Your Relationship Status? Information not available 10/01/2024 Have You Repeated Any Grades? No Information not available 10/01/2024 Do You Wear A Seatbelt When Driving Or As A Passenger? Yes Information not available 08/20/2025 Do You Use Your Seat Belt Or Car Seat Routinely? Yes Information not available 10/01/2024 Are You Sexually Active? No Information not available 10/01/2024 Do You Have Any Siblings? Yes Information not available 10/01/2024 Do You Have Smoke And Carbon Monoxide Detectors In Your Home? Yes Information not available 10/01/2024 Are You Passively Exposed To Smoke? No Information no t available 10/01/2024 Are There Any Smokers In Your House? Yes Information not available 10/01/2024 Do You Participate In Social Media? Yes Information not available 10/01/2024 What Types Of Sporting Activities Do You Participate In? None Information not available 08/20/2025 Do You Use Sunscreen Routinely? No Information not available 10/01/2024 Has Tobacco Cessation Counseling Been Provided? No Information not available 10/01/2024 Have You Recently Traveled Abroad? No Information not available 10/01/2024 Do You Have Difficulty Walking Or Climbing Stairs? No Information not available 10/01/2024 Are You Currently In School? No Information not available 10/01/2024 What Contraceptive Method Was Reported At Start Of This Visit? Female Sterilization Information not available 12/13/2024 Do You Feel Safe In Your Home? Yes Information not available 08/20/2025 Do You Have Any Dietary Restrictions? No Information not available 10/01/2024 Sex: Female Functional Status Question Answer Note LastModified by Organizat [employer] Details LastModified Time Do you use any illicit or recreational drugs? No Information not available 10/01/2024 Do you feel safe in your relationship? Yes Information n ot available 08/20/2025 Do you or have you ever used any other forms of tobacco or nicotine? No Information not available 10/01/2024 What is your level of alcohol consumption? None Information not available 10/01/2024 Are you currently employed? No Information not available 10/01/2024 Do you have transportation difficulties? No Information not available 10/01/2024 Are you able to walk independently without assistance or assistive devices? YESWOREST Information not available 10/01/2024 Do you have difficulty doing errands alone? No Information not available 10/01/2024 Are you able to care for yourself independently? Yes Information not available 10/01/2024 Do you have difficulty dressing, bathing, grooming, or toileting? No Information not available 10/01/2024 What is your exercise level? None Information not available 10/01/2024 Mental Status Question Answer Note LastModified by [employer] Details LastModified Time Do you feel stressed (tense, restless, nervous, or anxious, or unable to sleep at night)? [id number] Information not available 10/01/2024 Do you have difficulty concentrating, remembering or making decisions? No Information no t available 10/01/2024 Are you or have you been involved with bullying? No Information not available 10/01/2024 Family History Relationship Description Onset Age of this Age Resolved Age Notes LastModified by Organization Details LastModified Time Father Diabetes mellitus Not available 2023 10:06:42 Medical History Condition Response Coronary Artery Disease N Other N Gout N Kidney Stones N Blood Diseases N Hyperthyroidism N Blood Transfusion N Breast Cancer N Emergency room visit since last appointm ent. N COPD N Depression Y Dermatologic Disorders N Lung Disease N Hypothyroidism N Developmental or Behavioral Disorders N Defects or Inherited Disease N Breast Problem N Difficulty Swallowing N Anesthesia Complications N History of STI N Anxiety Disorder N Meniere's disease N Autoimmune disease N Muscle, Joint, or Bone Problems Y Vision or Eye Problems N Arthritis N Infertility N Polyps N Mental Disorder N Congenital Anomalies N Acid Reflux (GERD) N Cancer N Stroke N Neurologic/Epilepsy N Endometriosis N Bladder or Kidney Problems N High Cholesterol N Liver Disease N Psychiatric/Mental Health Condition N Organ Transplant N Fibromyalgia N Headaches Y Schizophrenia N Dialysis N Kidney Disease N Allergies/Hayfever N Heart Problems N Ear or Hearing Problems N Hospitalizations N Learning Disorder N Artificial Joints N Thyroid Problems Y GI Problems N Acne N ADD/ADHD N Eating Disorder N Anemia N Constipation N Mental Illness N Ovarian Cancer N Diabetes Y Bedwetting N Hepatitis/Liver Disease N Tuberculosis N Eczema N Diverticulitis N Abuse/Domestic Violence N Asthma N Trauma/Violence N Substance Abuse N Reflux/GERD N Depression/ depression N Hepatitis N Heart Disease N Pulmonary Embolism N Tourette Syndrome N Chronic Ear Infections N Pre-Eclampsia N Hypertension Y Chicken Pox N Autism Spectrum Disorder (ASD) N Osteoporosis N Thrombophilias N Gynecological History Statement/Question Response If Post Menopausal, Age at Menopause 48 Abnormal Pap N Menses Monthly N HPV Vaccine N Date of Last Pap Smear Current Control Method Tubal Ligat ion Most Recent Mammogram Age at First Child 24 Obstetrics History GPAL:G 2 P 2 0 0 2 Type Value Multiple Births 0 Full Term 2 Induced 0 Spontaneous 0 Premature 0 Living 2 Ectopics 0 Total 2 Immunizations Vaccine Type Date Status Note Provider Nam e and Address Organization Details Recorded Time COVID-19, mRNA, LNP-S, PF, 100 mcg/0.5mL dose or 50 mcg/0.25mL dose 11/13/2020 completed Meg Vice null, [employer] 11/05/2024 08:54:28 COVID-19, mRNA, LNP-S, PF, 100 mcg/0.5mL dose or 50 mcg/0.25mL dose 12/15/2020 completed Meg Vice null, [employer] 11/05/2024 08:54:28 COVID-19, mRNA, LNP-S, PF, 100 mcg/0.5mL dose or 50 mcg/0.25mL dose 09/11/2021 completed Meg Vice null, [employer] 11/05/2024 08:54:28 Past Encounters Encounter ID Performer Location Encounter Start Date Encounter Closed Date Diagnosis/Indication Diagnosis SNOMED-CT Code Diagnosis ICD10 Code Diagnosis IMO Codes Diagnosis Note [id number] TONY Tim [facility] [address] [place] [address] 08/20/2025 16:48:09 08/20/2025 17:23:56 Generalized anxiety disorder 06067594 F41.1 Depressive disorder 3548 9007 F32.A Hyperlipidemia 20296868 E78.5 Type 2 alvina betes mellitus without complication 679798047 E11.9 Hypothyroidism 08991122 E03.9 Vitamin D deficiency 347 28103 E55.9 Chronic ki dney disease 583996345 N18.9 Grief finding 732182989 F43.20 48288 Loss of appetite 3332892 6 R63.0 11601 Health Concerns Section Related Observation LastModified by Organization Detai ls LastModified Time None Recorded Concern Status LastModified by Organization Details LastModified Time None Recorded Payers Encounter Date Sequence Insurance Name Policy Number Policy Escamilla Covered Member ID Escamilla Member ID Guarantor Name 08/20/2025 1 [place] [employer] OF [facility] MEDIBLUE PLUS (MEDICARE REPLACEMENT HMO) [id number] Bella Presley [id number] Bella Presley Notes Date Note Type Note Provider Name and Address Organization Details Recorded Time 08/20/2025 text/html ROS as noted in the HPI Patient presents for followup. History of anxiety/depress ion, HLD, DM, CKD, hypothyroidism, vitamin D deficiency. She lost her suddenly a few months ago. She is not eating and has lost 18 pounds. Daughter is concerned. TONY Tim [address] [place] [address], [place], [address], [email or web address] 08/23/2025 14:54:13 OBGyn Episode No OBEpisode recorded.
--- OUTSIDE RECORDS SUMMARY | 2025-09-02 17:14 | XMS_ITS | Data Portability ---
Author Organization [facility] - MSE Address [address] [place] [address] Assessment No assessment recorded. Plan of Treatment Reminders Order Date Submit Date Provider Last Modified By Organization Details Last Modified Time Details Appointments FOLLOW UP 15 2024 04:45P Seema Richmond PA-C Not available Not available Not available Lab HbA1c (hemoglob in A1c), blood [address], [address] [place], [address], 06/20/2025 17:13:43 microalbu min/creat inine, mass ratio, urine [address], [address] [place], [address], 06/20/2025 17:13:43 unlisted lab - toxassure flex 19, [id number] -[id number] [address] [facility]), [address], [place], [address], 06/24/2025 09:07:44 CMP, serum or plasma [address] [facility]), [address], [place], [address], 06/22/2025 11:07:51 CBC w/ auto diff [address] [facility]), [address], [place], [address], 06/24/2025 09:07:45 lipid panel, serum 2024 025 STITES [facility] ([place]), [address], [place], [address], 06/22/2025 11:07:52 TSH, ultra-sen sitive, serum 2024 025 STITES [facility] ([place]), [address], [place], [address], 06/22/2025 11:07:53 HbA1c (hemoglob in A1c), blood 2024 025 [facility], [address] [facility], [place], [address], 03/07/2025 13:19:55 noninvasi ve colorecta l cancer DNA + occult blood screening , QL, stool 2024 025 [email or web address] [facility], [address], [address], [place], [address], 09/02/2025 14:51:37 Referral EGD referral 2024 025 [email or web address] Vijay Flores MD, [address], [place], [address], 08/30/2025 15:15:07 Procedures None recorded. Surgeries None recorded. Imaging electroca rdiogram [address] ([facility]), [address], [place], [address], 04/11/2025 17:48:43 Medication Orders trazodone 100 mg tablet 2024 025 [facility], [address] [address] [facility], [address], [place], [address], 06/20/2025 17:19:32 alcohol swabs 2024 025 [facility], [address] [place] [address], [facility], [place], [address], 06/20/2025 17:19:39 Calcium 600 + D(3) 600 mg-10 mcg (400 unit) tablet 2024 025 [facility], [address] [place] [address] 2, [place], [address], 06/20/2025 17:19:41 Fosamax 70 mg tablet 2024 025 [facility], [address] [place] [address], [place], [address], 06/20/2025 17:19:45 atorvasta tin 10 mg tablet 2024 025 [facility], [address] [place] [address], [place], [address], 06/20/2025 17:19:44 tramadol 50 mg tablet 2024 025 [facility], [address] [place] [address], [place], [address], 06/20/2025 17:19:35 baclofen 10 mg tablet 2024 025 [facility], [address] [place] [address], [place], [address], 06/20/2025 17:19:50 cholecalc iferol (vitamin D3) 50 mcg (2,000 unit) capsule 2024 025 [facility], [address] [place] [address], [place], [address], 08/26/2025 15:24:35 ergocalci ferol (vitamin D2) 1,250 mcg (50,000 unit) capsule 2024 025 [facility], [address] [place], [place] [address], [place], [address], 08/26/2025 15:24:34 Adult Low Dose Aspirin 81 mg tablet,de layed release 2024 025 [facility], [address] [place] [address], [facility], [place], [address], 06/20/2025 17:19:40 lisinopri l 2.5 mg tablet 2024 025 [facility], [address] [place] [address], [facility], [place], [address], 06/20/2025 17:19:49 metformin ER 500 mg tablet,ex tended release 24 hr 2024 025 [facility], [address] [place] [address], [facility], [place], [address], 06/20/2025 17:19:37 levothyro xine 100 mcg tablet 2024 025 [facility], [address] [place] [address], [facility], [place], [address], 06/20/2025 17:19:42 Qulipta 60 mg tablet [address], [address] [place] [address], [address], [place], [address], 06/20/2025 16:59:49 Ubrelvy 100 mg tablet 2024 025 [facility], [address] [place] [address], [facility] [address], [place], [address], 03/07/2025 13:22:16 Ubrelvy 100 mg tablet 2024 025 [facility], [address] [place] [address], [facility], [place], [address], 03/07/2025 13:22:14 Vraylar 1.5 mg capsule [address] [place] [address] Pharmacy, [address] [facility] [facility], [address], [place], [address], 03/07/2025 14:11:50 Patient TargetsNo targets recorded. Patient Instructions Encounter Date Encounter Id Patient Instructions Last Modified By Organization Details Last Modified Time 03/07/2025 [id number] learning about type 2 diabetes [email or web address] Not available 03/07/2025 13:02:27 type 2 diabetes: care instructions Not available 03/07/2025 13:02:27 learning about mood disorders [email or web address] Not available 03/07/2025 14:08:19 06/20/2025 [id number] learning about type 2 diabetes [email or web address] Not available 06/20/2025 17:13:42 type 2 diabetes: care instructions [email or web address] Not available 06/20/2025 17:13:42 dizziness: care instructions Not available 06/20/2025 17:19:12 cervical spondylosis: care instructions [email or web address] Not available 06/20/2025 17:15:13 neck arthritis: exercises [email or web address] Not available 06/20/2025 17:15:13 08/20/2025 [id number] anorexia: care instructions [email or web address] Not available 08/23/2025 14:54:08 grief (actual/anticipat ed): care instructions Not available 08/23/2025 14:51:17 type 2 diabetes: care instructions [id number] Not available 08/23/2025 14:51:17 hypothyroidism: care instructions [email or web address] Not available 08/23/2025 14:51:17 high cholesterol : care instructions [email or web address] Not available 08/23/2025 14:51:17 learning about mood disorders [email or web address] Not available 08/23/2025 14:51:17 Reason for Referral EGD Referral for Loss of tanvi etite Referring Physician: Sobeida Richmond, Family Medicine, Encounter Date: 08/20/2025 Results Created Date Observation Date Name Description Value Unit Range Abnormal Flag Note LastModifiedBy Organization Detail LastModifiedTime 03/07/20 25 03/07/2025 HbA1c (hemo globi n A1c), blood HbA1c 6.8 % Not Available [facility] [address] [facility], [place], [address], 03/07/2025 13:00:06 06/20/20 25 06/22/2025 COMP. METAB OLIC PANEL (14) glucose 118 mg/dL 70-99 above high normal Not Available [facility] ([facility]) [address] [place], [address], 06/22/2025 11:07:51 06/20/20 25 06/22/2025 COMP. METAB OLIC PANEL (14) BUN 20 mg/dL 8-27 normal Not Available [facility] ([facility]) [address] [place], [address], 06/22/2025 11:07:51 06/20/20 25 06/22/2025 COMP. METAB OLIC PANEL (14) creatinine 1.16 mg/dL 0.57-1 .00 above high normal Not Available [facility] ([facility]) [address] [place], [address], 06/22/2025 11:07:51 06/20/20 25 06/22/2025 COMP. METAB OLIC PANEL (14) eGFR 53 mL/mi n/1.7 3 >59 below low normal Not Available [facility] ([facility]) [address] [place], [address], 06/22/2025 11:07:51 06/20/20 25 06/22/2025 COMP. METAB OLIC PANEL (14) BUN/creatini ne ratio 17 12-28 normal Not Available [facility] ([facility]) [address] [place], [address], 06/22/2025 11:07:51 06/20/20 25 06/22/2025 COMP. METAB OLIC PANEL (14) sodium 141 mmol/ L 134-14 4 normal Not Available [facility] ([facility]) [address] [place], [address], 06/22/2025 11:07:51 06/20/20 25 06/22/2025 COMP. METAB OLIC PANEL (14) potassium 4.3 mmol/ L 3.5-5. 2 normal Not Available [facility] ([facility]) [address] [facility] [place], [address], 06/22/2025 11:07:51 06/20/20 25 06/22/2025 COMP. METAB OLIC PANEL (14) chloride 100 mmol/ L 96-106 normal Not Available [facility] ([facility]) [address] [place], [address], 06/22/2025 11:07:51 06/20/20 25 06/22/2025 COMP. METAB OLIC PANEL (14) carbon dioxide, total 18 mmol/ L 20-29 below low normal Not Available [facility] ([facility]) [address] [facility] [place], [address], 06/22/2025 11:07:51 06/20/20 25 06/22/2025 COMP. METAB OLIC PANEL (14) calcium 9.8 mg/dL 8.7-10 .3 normal Not Available [facility] ([facility]) [address] [facility] [place], [address], 06/22/2025 11:07:51 06/20/20 25 06/22/2025 COMP. METAB OLIC PANEL (14) protein, total 7.5 g/dL 6.0-8. 5 normal Not Available [facility] ([facility]) [address] [facility] [place], [address], 06/22/2025 11:07:51 06/20/20 25 06/22/2025 COMP. METAB OLIC PANEL (14) albumin 4.4 g/dL 3.9-4. 9 normal Not Available [facility] ([facility]) [address] [facility] [place], [address], 06/22/2025 11:07:51 06/20/20 25 06/22/2025 COMP. METAB OLIC PANEL (14) globulin, total 3.1 g/dL 1.5-4. 5 Not Available [facility] ([facility]) [address] [place], [address], 06/22/2025 11:07:51 06/20/20 25 06/22/2025 COMP. METAB OLIC PANEL (14) bilirubin, total 0.2 mg/dL 0.0-1. 2 normal Not Available [facility] ([facility]) [address] [place], [address], 06/22/2025 11:07:51 06/20/20 25 06/22/2025 COMP. METAB OLIC PANEL (14) alkaline phosphatase 99 IU/L 44-121 normal Not Available [facility] ([facility]) [address] [place], [address], 06/22/2025 11:07:51 06/20/20 25 06/22/2025 COMP. METAB OLIC PANEL (14) AST (SGOT) 26 IU/L 0-40 normal Not Available [facility] ([facility]) [address] [place], [address], 06/22/2025 11:07:51 06/20/20 25 06/22/2025 COMP. METAB OLIC PANEL (14) ALT (SGPT) 30 IU/L 0-32 normal Not Available [facility] ([facility]) [address] [place], [address], 06/22/2025 11:07:51 06/20/20 25 06/22/2025 LIPID PANEL cholesterol, total 181 mg/dL 100-19 9 normal Not Available [facility] ([facility]) [address] [place], [address], 06/22/2025 11:07:52 06/20/20 25 06/22/2025 LIPID PANEL triglyceride s 148 mg/dL 0-149 normal Not Available [facility] ([facility]) [address] [place], [address], 06/22/2025 11:07:52 06/20/20 25 06/22/2025 LIPID PANEL HDL cholesterol 56 mg/dL >39 normal Not Available [facility] ([facility]) [address] [place], [address], 06/22/2025 11:07:52 06/20/20 25 06/22/2025 LIPID PANEL VLDL cholesterol agueda 26 mg/dL 5-40 Not Available [facility] ([facility]) [address] [place], [address], 06/22/2025 11:07:52 06/20/2006/22/2025 LIPID PANEL LDL chol calc ([facility]) 99 mg/dL 0-99 Not Available [facility] ([facility]) [address] [place], [address], 06/22/2025 11:07:52 06/20/2006/22/2025 LIPID PANEL LDL calc comment: LIABILITY CLAIMS EXAMINER Not Available [facility] ([facility]) [address] [facility], [place], [address], 06/22/2025 11:07:52 06/20/2006/22/2025 TSH TSH 2.750 uIU/m L 0.450- 4.500 normal Not Available [facility] ([facility]) [address] [place], [address], 06/22/2025 11:07:53 06/20/2006/24/2025 TOXAS SURE FLEX 19, UR summary report FINAL ===== ===== ===== ===== ===== ===== ===== ===== ===== ===== ===== ===== ===== === ToxAs sure Flex 19, Ur ===== ===== ===== ===== ===== ===== ===== ===== ===== ===== ===== ===== ===== === Test Resul t Flag Units NO DRUGS DETEC RUTH. ===== ===== ===== ===== ===== ===== ===== ===== ===== ===== ===== ===== ===== === Test Resul t Flag Units Ref Range Creat inine 201 mg/dL >=20 ===== ===== ===== ===== ===== ===== ===== ===== ===== ===== ===== ===== ===== === Decla red Medic ation s: Medic ation list was not provi ded. ===== ===== ===== ===== ===== ===== ===== ===== ===== ===== ===== ===== ===== === For clini agueda consu ltati on, pleas e call [phone]. ===== ===== ===== ===== ===== ===== ===== ===== ===== ===== ===== ===== ===== === Not Available [facility] ([facility]) [address] [facility], [place], [address], 06/24/2025 09:07:44 06/20/20 25 06/24/2025 TOXAS SURE FLEX 19, UR pdf . Not Available [facility] ([facility]) [address] [facility], [place], [address], 06/24/2025 09:07:44 06/20/20 25 06/24/2025 TOXAS SURE FLEX 19, UR creatinine 201 mg/dL >=20 REFER ENCE RANGE : Ref Range >=20 Not Available [facility] ([facility]) [address] [place], [address], 06/24/2025 09:07:44 06/20/20 25 06/24/2025 TOXAS SURE FLEX 19, UR amphetamines ia Negati ve NG/mL cutoff :300 Not Available [facility] ([facility]) [address] [place], [address], 06/24/2025 09:07:44 06/20/2006/24/2025 TOXAS SURE FLEX 19, UR benzodiazepi filemon Negati ve Not Available [facility] ([facility]) [address] [place], [address], 06/24/2025 09:07:44 06/20/2006/24/2025 TOXAS SURE FLEX 19, UR diazepam Not Detect ed NG/mg _crea t Not Available [facility] ([facility]) [address] [place], [address], 06/24/2025 09:07:44 06/20/2006/24/2025 TOXAS SURE FLEX 19, UR desmethyldia zepam Not Detect ed NG/mg _crea t Not Available [facility] ([facility]) [address] [place], [address], 06/24/2025 09:07:44 06/20/20 25 06/24/2025 TOXAS SURE FLEX 19, UR oxazepam Not Detect ed NG/mg _crea t Not Available [facility] ([facility]) [address] [place], [address], 06/24/2025 09:07:44 06/20/20 25 06/24/2025 TOXAS SURE FLEX 19, UR temazepam Not Detect ed NG/mg _crea t Expec ruth metab olism of benzo diaze pine class drugs : Paren t Drug Detec ruth Metab olite s ----- ----- - ----- ----- ----- ----- Diaze raheem: Desme thyld iazep am, Temaz epam, Oxaze raheem Chlor diaze poxid e: Desme thyld iazep am, Oxaze raheem Clora zepat e: Desme thyld iazep am, Oxaze raheem Halaz epam: Desme thyld iazep am, Oxaze raheem Temaz epam: Oxaze raheem Oxaze raheem: None Not Available [facility] ([facility]) [address] [place], [address], 06/24/2025 09:07:44 06/20/20 25 06/24/2025 TOXAS SURE FLEX 19, UR alprazolam Not Detect ed NG/mg _crea t Not Available [facility] ([facility]) [address] [place], [address], 06/24/2025 09:07:44 06/20/20 25 06/24/2025 TOXAS SURE FLEX 19, UR alpha-hydrox yalprazolam Not Detect ed NG/mg _crea t Not Available [facility] ([facility]) [address] [place], [address], 06/24/2025 09:07:44 06/20/20 25 06/24/2025 TOXAS SURE FLEX 19, UR desalkylflur azepam Not Detect ed NG/mg _crea t Not Available [facility] ([facility]) [address] [place], [address], 06/24/2025 09:07:44 06/20/20 25 06/24/2025 TOXAS SURE FLEX 19, UR lorazepam Not Detect ed NG/mg _crea t Not Available [facility] ([facility]) [address] [place], [address], 06/24/2025 09:07:44 06/20/20 25 06/24/2025 TOXAS SURE FLEX 19, UR alpha-hydrox ytriazolam Not Detect ed NG/mg _crea t Not Available [facility] ([facility]) [address] [place], [address], 06/24/2025 09:07:44 06/20/20 25 06/24/2025 TOXAS SURE FLEX 19, UR clonazepam Not Detect ed NG/mg _crea t Not Available [facility] ([facility]) [address] [place], [address], 06/24/2025 09:07:44 06/20/20 25 06/24/2025 TOXAS SURE FLEX 19, UR 7-aminoclona zepam Not Detect ed NG/mg _crea t Not Available [facility] ([facility]) [address] [facility], [place], [address], 06/24/2025 09:07:44 06/20/20 25 06/24/2025 TOXAS SURE FLEX 19, UR midazolam Not Detect ed NG/mg _crea t Not Available [facility] ([facility]) [address] [place], [address], 06/24/2025 09:07:44 06/20/20 25 06/24/2025 TOXAS SURE FLEX 19, UR alpha-hydrox ymidazolam Not Detect ed NG/mg _crea t Not Available [facility] ([facility]) [address] [place], [address], 06/24/2025 09:07:44 06/20/20 25 06/24/2025 TOXAS SURE FLEX 19, UR flunitrazepa m Not Detect ed NG/mg _crea t Not Available [facility] ([facility]) [address] [place], [address], 06/24/2025 09:07:44 06/20/20 25 06/24/2025 TOXAS SURE FLEX 19, UR desmethylflu nitrazepam Not Detect ed NG/mg _crea t Not Available [facility] ([facility]) [address] [place], [address], 06/24/2025 09:07:44 06/20/20 25 06/24/2025 TOXAS SURE FLEX 19, UR cocaine metabolite ia Negati ve NG/mL cutoff :150 Not Available [facility] ([facility]) [address] [place], [address], 06/24/2025 09:07:44 06/20/20 25 06/24/2025 TOXAS SURE FLEX 19, UR ethanol biomarkers ia Negati ve NG/mL cutoff :500 Not Available [facility] ([facility]) [address] [place], [address], 06/24/2025 09:07:44 06/20/20 25 06/24/2025 TOXAS SURE FLEX 19, UR cannabinoids ia Negati ve NG/mL cutoff :20 Not Available [facility] ([facility]) [address] [place], [address], 06/24/2025 09:07:44 06/20/20 25 06/24/2025 TOXAS SURE FLEX 19, UR 6-acetylmorp césar ia Negati ve NG/mL cutoff :10 Not Available [facility] ([facility]) [address] [place], [address], 06/24/2025 09:07:44 06/20/20 25 06/24/2025 TOXAS SURE FLEX 19, UR opiate class ia Negati ve NG/mL cutoff :100 Not Available [facility] ([facility]) [address] [place], [address], 06/24/2025 09:07:44 06/20/20 25 06/24/2025 TOXAS SURE FLEX 19, UR oxycodone class ia Negati ve NG/mL cutoff :100 Not Available [facility] ([facility]) [address] [place], [address], 06/24/2025 09:07:44 06/20/20 25 06/24/2025 TOXAS SURE FLEX 19, UR methadone ia Negati ve NG/mL cutoff :100 Not Available [facility] ([facility]) [address] [place], [address], 06/24/2025 09:07:44 06/20/20 25 06/24/2025 TOXAS SURE FLEX 19, UR methadone mtb ia Negati ve NG/mL cutoff :100 Not Available [facility] ([facility]) [address] [place], [address], 06/24/2025 09:07:44 06/20/20 25 06/24/2025 TOXAS SURE FLEX 19, UR buprenorphin e ia Negati ve NG/mL cutoff :5.0 Not Available [facility] ([facility]) [address] [place], [address], 06/24/2025 09:07:44 06/20/20 25 06/24/2025 TOXAS SURE FLEX 19, UR fentanyl ia Negati ve NG/mL cutoff :2.0 Not Available [facility] ([facility]) [address] [place], [address], 06/24/2025 09:07:44 06/20/20 25 06/24/2025 TOXAS SURE FLEX 19, UR tapentadol ia Negati ve NG/mL cutoff :200 Not Available [facility] ([facility]) [address] [place], [address], 06/24/2025 09:07:44 06/20/20 25 06/24/2025 TOXAS SURE FLEX 19, UR propoxyphene ia Negati ve NG/mL cutoff :300 Not Available [facility] ([facility]) [address] [place], [address], 06/24/2025 09:07:44 06/20/20 25 06/24/2025 TOXAS SURE FLEX 19, UR tramadol ia Negati ve NG/mL cutoff :200 Not Available [facility] ([facility]) [address] [place], [address], 06/24/2025 09:07:44 06/20/20 25 06/24/2025 TOXAS SURE FLEX 19, UR methylphenid ate ia Negati ve NG/mL cutoff :100 Not Available [facility] ([facility]) [address] [place], [address], 06/24/2025 09:07:44 06/20/20 25 06/24/2025 TOXAS SURE FLEX 19, UR barbiturates ia Negati ve NG/mL cutoff :200 Not Available [facility] ([facility]) [address] [place], [address], 06/24/2025 09:07:44 06/20/20 25 06/24/2025 TOXAS SURE FLEX 19, UR phencyclidin e ia Negati ve NG/mL cutoff :25 Not Available [facility] ([facility]) [address] [place], [address], 06/24/2025 09:07:44 06/20/20 25 06/24/2025 TOXAS SURE FLEX 19, UR gabapentin ia Negati ve ug/mL cutoff :1.0 Not Available [facility] ([facility]) [address] [place], [address], 06/24/2025 09:07:44 06/20/20 25 06/24/2025 TOXAS SURE FLEX 19, UR anticonvulsa nts Negati ve Not Available [facility] ([facility]) [address] [place], [address], 06/24/2025 09:07:44 0806/24/2025 TOXAS SURE FLEX 19, UR pregabalin Not Detect ed Not Available [facility] ([facility]) [address] [place], [address], 06/24/2025 09:07:44 06/20/2006/24/2025 TOXAS SURE FLEX 19, UR carisoprodol ia Negati ve NG/mL cutoff :100 Not Available [facility] ([facility]) [address] [place], [address], 06/24/2025 09:07:44 06/20/2006/21/2025 CBC WITH DIFFE RENTI AL/PL ATELE T WBC 15.8 x10e3 /uL 3.4-10 .8 above high normal Not Available [facility] ([facility]) [address] [place], [address], 06/24/2025 09:07:45 06/20/2006/21/2025 CBC WITH DIFFE RENTI AL/PL ATELE T RBC 4.90 x10e6 /uL 3.77-5 .28 normal Not Available [facility] ([facility]) [address] [place], [address], 06/24/2025 09:07:45 06/20/2006/21/2025 CBC WITH DIFFE RENTI AL/PL ATELE T hemoglobin 13.0 g/dL 11.1-1 5.9 normal Not Available [facility] ([facility]) [address] [place], [address], 06/24/2025 09:07:45 06/20/2006/21/2025 CBC WITH DIFFE RENTI AL/PL ATELE T hematocrit 41.5 % 34.0-4 6.6 normal Not Available [facility] ([facility]) [address] [place], [address], 06/24/2025 09:07:45 06/20/2006/21/2025 CBC WITH DIFFE RENTI AL/PL ATELE T MCV 85 fL 79-97 normal Not Available [facility] ([facility]) [address] [facility], [place], [address], 06/24/2025 09:07:45 06/20/20 25 06/21/2025 CBC WITH DIFFE RENTI AL/PL ATELE T MCH 26.5 pg 26.6-3 3.0 below low normal Not Available [facility] ([facility]) [address] [facility], [place], [address], 06/24/2025 09:07:45 06/20/2006/21/2025 CBC WITH DIFFE RENTI AL/PL ATELE T MCHC 31.3 g/dL 31.5-3 5.7 below low normal Not Available [facility] ([facility]) [address] [place], [address], 06/24/2025 09:07:45 06/20/20 25 06/21/2025 CBC WITH DIFFE RENTI AL/PL ATELE T RDW 15.7 % 11.7-1 5.4 above high normal Not Available [facility] ([facility]) [address] [place], [address], 06/24/2025 09:07:45 06/20/2006/21/2025 CBC WITH DIFFE RENTI AL/PL ATELE T platelets 324 x10e3 /uL 150-45 0 normal Not Available [facility] ([facility]) [address] [place], [address], 06/24/2025 09:07:45 06/20/2006/21/2025 CBC WITH DIFFE RENTI AL/PL ATELE T neutrophils 77 % not estab. normal Not Available [facility] ([facility]) [address] [place], [address], 06/24/2025 09:07:45 06/20/20 25 06/21/2025 CBC WITH DIFFE RENTI AL/PL ATELE T lymphs 17 % not estab. normal Not Available [facility] ([facility]) [address] [place], [address], 06/24/2025 09:07:45 06/20/20 25 06/21/2025 CBC WITH DIFFE RENTI AL/PL ATELE T monocytes 6 % not estab. normal Not Available [facility] ([facility]) [address] [facility], [place], [address], 06/24/2025 09:07:45 06/20/20 25 06/21/2025 CBC WITH DIFFE RENTI AL/PL ATELE T eos 0 % not estab. normal Not Available [facility] ([facility]) [address] [facility], [place], [address], 06/24/2025 09:07:45 06/20/2006/21/2025 CBC WITH DIFFE RENTI AL/PL ATELE T basos 0 % not estab. normal Not Available [facility] ([facility]) [address] [place], [address], 06/24/2025 09:07:45 06/20/2006/21/2025 CBC WITH DIFFE RENTI AL/PL ATELE T immature cells LIABILITY CLAIMS EXAMINER Not Available [facility] ([facility]) [address] [place], [address], 06/24/2025 09:07:45 06/20/2006/21/2025 CBC WITH DIFFE RENTI AL/PL ATELE T neutrophils (absolute) 12.1 x10e3 /uL 1.4-7. 0 above high normal Not Available [facility] ([facility]) [address] [place], [address], 06/24/2025 09:07:45 06/20/20 25 06/21/2025 CBC WITH DIFFE RENTI AL/PL ATELE T lymphs (absolute) 2.6 x10e3 /uL 0.7-3. 1 normal Not Available [facility] ([facility]) [address] [facility] [place], [address], 06/24/2025 09:07:45 06/20/2006/21/2025 CBC WITH DIFFE RENTI AL/PL ATELE T monocytes(ab solute) 0.9 x10e3 /uL 0.1-0. 9 normal Not Available [facility] ([facility]) [address] [facility], [place], [address], 06/24/2025 09:07:45 06/20/2006/21/2025 CBC WITH DIFFE RENTI AL/PL ATELE T eos (absolute) 0.1 x10e3 /uL 0.0-0. 4 normal Not Available [facility] ([facility]) [address] [facility], [place], [address], 06/24/2025 09:07:45 06/20/20 25 06/21/2025 CBC WITH DIFFE RENTI AL/PL ATELE T baso (absolute) 0.1 x10e3 /uL 0.0-0. 2 normal Not Available [facility] ([facility]) [address] [facility], [place], [address], 06/24/2025 09:07:45 06/20/2006/21/2025 CBC WITH DIFFE RENTI AL/PL ATELE T immature granulocytes 0 % not estab. Not Available [facility] ([facility]) [address] [place], [address], 06/24/2025 09:07:45 06/20/2006/21/2025 CBC WITH DIFFE RENTI AL/PL ATELE T immature grans (abs) 0.0 x10e3 /uL 0.0-0. 1 Not Available [facility] ([facility]) [address] [facility], [place], [address], 06/24/2025 09:07:45 06/20/20 25 06/21/2025 CBC WITH DIFFE RENTI AL/PL ATELE T NRBC LIABILITY CLAIMS EXAMINER Not Available [facility] ([facility]) [address] [facility], [place], [address], 06/24/2025 09:07:45 06/20/20 25 06/21/2025 CBC WITH DIFFE RENTI AL/PL ATELE T hematology comments: LIABILITY CLAIMS EXAMINER Not Available [facility] ([facility]) [address] [facility], [place], [address], 06/24/2025 09:07:45 06/20/20 25 06/21/[address] PROBL EM request problem TNP Test not perfo rmed. No serum gel recei rush. TEST: [id number] 0 Comp. Metab olic Panel (14) 60465 6 Lipid Panel 02580 9 TSH Not Available [facility] ([facility]) [address] [facility], [place], [address], 06/24/2025 09:07:48 06/20/20 25 06/20/2025 HbA1c (hemo globi n A1c), blood HbA1c 6.6 % Not Available [facility] [address] [place] [address], [address], 06/20/2025 16:56:45 06/20/20 25 06/20/2025 micro album in/cr eatin ine, mass ratio , urine Microalbumin 30 mg/L Not Available [facility] [address] [place] [address], [phone], 06/20/2025 16:56:52 06/20/20 25 06/20/2025 micro album in/cr eatin ine, mass ratio , urine Creatinine 300 mg/dL Not Available [facility] [address] [place] [address], [phone], 06/20/2025 16:56:52 06/20/20 25 06/20/2025 micro album in/cr eatin ine, mass ratio , urine Ratio <30 mg/g Not Available [facility] [address] [facility], [place], [address], 06/20/2025 16:56:52 08/23/2008/24/2025 CBC WITH DIFFE RENTI AL/PL ATELE T WBC 12.5 x10e3 /uL 3.4-10 .8 above high normal Not Available [facility] ([facility]) [address] [facility], [place], [address], 08/24/2025 09:07:58 08/23/2008/24/2025 CBC WITH DIFFE RENTI AL/PL ATELE T RBC 5.27 x10e6 /uL 3.77-5 .28 normal Not Available [facility] ([facility]) [address] [place], [address], 08/24/2025 09:07:58 08/23/2008/24/2025 CBC WITH DIFFE RENTI AL/PL ATELE T hemoglobin 13.7 g/dL 11.1-1 5.9 normal Not Available [facility] ([facility]) [address] [facility], [place], [address], 08/24/2025 09:07:58 08/23/2008/24/2025 CBC WITH DIFFE RENTI AL/PL ATELE T hematocrit 43.8 % 34.0-4 6.6 normal Not Available [facility] ([facility]) [address] [place], [address], 08/24/2025 09:07:58 08/23/2008/24/2025 CBC WITH DIFFE RENTI AL/PL ATELE T MCV 83 fL 79-97 normal Not Available [facility] ([facility]) [address] [place], [address], 08/24/2025 09:07:58 08/23/2008/24/2025 CBC WITH DIFFE RENTI AL/PL ATELE T MCH 26.0 pg 26.6-3 3.0 below low normal Not Available [facility] ([facility]) [address] [facility], [place], [address], 08/24/2025 09:07:58 08/23/20 25 08/24/2025 CBC WITH DIFFE RENTI AL/PL ATELE T MCHC 31.3 g/dL 31.5-3 5.7 below low normal Not Available [facility] ([facility]) [address] [facility], [place], [address], 08/24/2025 09:07:58 08/23/2008/24/2025 CBC WITH DIFFE RENTI AL/PL ATELE T RDW 14.4 % 11.7-1 5.4 Not Available [facility] ([facility]) [address] [facility], [place], [address], 08/24/2025 09:07:58 08/23/2008/24/2025 CBC WITH DIFFE RENTI AL/PL ATELE T platelets 265 x10e3 /uL 150-45 0 normal Not Available [facility] ([facility]) [address] [facility], [place], [address], 08/24/2025 09:07:58 08/23/2008/24/2025 CBC WITH DIFFE RENTI AL/PL ATELE T neutrophils 78 % not estab. normal Not Available [facility] ([facility]) [address] [place], [address], 08/24/2025 09:07:58 08/23/2008/24/2025 CBC WITH DIFFE RENTI AL/PL ATELE T lymphs 15 % not estab. normal Not Available [facility] ([facility]) [address] [place], [address], 08/24/2025 09:07:58 08/23/2008/24/2025 CBC WITH DIFFE RENTI AL/PL ATELE T monocytes 5 % not estab. normal Not Available [facility] ([facility]) [address] [facility], [place], [address], 08/24/2025 09:07:58 08/23/2008/24/2025 CBC WITH DIFFE RENTI AL/PL ATELE T eos 1 % not estab. normal Not Available [facility] ([facility]) [address] [facility], [place], [address], 08/24/2025 09:07:58 08/23/2008/24/2025 CBC WITH DIFFE RENTI AL/PL ATELE T basos 0 % not estab. normal Not Available [facility] ([facility]) [address] [facility], [place], [address], 08/24/2025 09:07:58 08/23/2008/24/2025 CBC WITH DIFFE RENTI AL/PL ATELE T immature cells LIABILITY CLAIMS EXAMINER Not Available [facility] ([facility]) [address] [place], [address], 08/24/2025 09:07:58 08/23/2008/24/2025 CBC WITH DIFFE RENTI AL/PL ATELE T neutrophils (absolute) 9.8 x10e3 /uL 1.4-7. 0 above high normal Not Available [facility] ([facility]) [address] [place], [address], 08/24/2025 09:07:58 08/23/20 25 08/24/2025 CBC WITH DIFFE RENTI AL/PL ATELE T lymphs (absolute) 1.9 x10e3 /uL 0.7-3. 1 normal Not Available [facility] ([facility]) [address] [place], [address], 08/24/2025 09:07:58 08/23/20 25 08/24/2025 CBC WITH DIFFE RENTI AL/PL ATELE T monocytes(ab solute) 0.7 x10e3 /uL 0.1-0. 9 normal Not Available [facility] ([facility]) [address] [facility], [place], [address], 08/24/2025 09:07:58 08/23/2008/24/2025 CBC WITH DIFFE RENTI AL/PL ATELE T eos (absolute) 0.1 x10e3 /uL 0.0-0. 4 normal Not Available [facility] ([facility]) [address] [facility], [place], [address], 08/24/2025 09:07:58 08/23/2008/24/2025 CBC WITH DIFFE RENTI AL/PL ATELE T baso (absolute) 0.0 x10e3 /uL 0.0-0. 2 normal Not Available [facility] ([facility]) [address] [facility], [place], [address], 08/24/2025 09:07:58 08/23/2008/24/2025 CBC WITH DIFFE RENTI AL/PL ATELE T immature granulocytes 1 % not estab. Not Available [facility] ([facility]) [address] [facility], [place], [address], 08/24/2025 09:07:58 08/23/2008/24/2025 CBC WITH DIFFE RENTI AL/PL ATELE T immature grans (abs) 0.1 x10e3 /uL 0.0-0. 1 Not Available [facility] ([facility]) [address] [facility], [place], [address], 08/24/2025 09:07:58 08/23/2008/24/2025 CBC WITH DIFFE RENTI AL/PL ATELE T NRBC LIABILITY CLAIMS EXAMINER Not Available [facility] ([facility]) [address] [place], [address], 08/24/2025 09:07:58 08/23/2008/24/2025 CBC WITH DIFFE RENTI AL/PL ATELE T hematology comments: LIABILITY CLAIMS EXAMINER Not Available [facility] ([facility]) [address] [facility], [place], [address], 08/24/2025 09:07:58 08/23/20 25 08/24/2025 COMP. METAB OLIC PANEL (14) glucose 120 mg/dL 70-99 above high normal Not Available [facility] ([facility]) [address] [place], [address], 08/24/2025 09:07:59 08/23/20 25 08/24/2025 COMP. METAB OLIC PANEL (14) BUN 12 mg/dL 8-27 normal Not Available [facility] ([facility]) [address] [facility], [place], [address], 08/24/2025 09:07:59 08/23/20 25 08/24/2025 COMP. METAB OLIC PANEL (14) creatinine 1.11 mg/dL 0.57-1 .00 above high normal Not Available [facility] ([facility]) [address] [place], [address], 08/24/2025 09:07:59 08/23/20 25 08/24/2025 COMP. METAB OLIC PANEL (14) eGFR 56 mL/mi n/1.7 3 >59 below low normal Not Available [facility] ([facility]) [address] [place], [address], 08/24/2025 09:07:59 08/23/20 25 08/24/2025 COMP. METAB OLIC PANEL (14) BUN/creatini ne ratio 11 12-28 below low normal Not Available [facility] ([facility]) [address] [place], [address], 08/24/2025 09:07:59 08/23/20 25 08/24/2025 COMP. METAB OLIC PANEL (14) sodium 140 mmol/ L 134-14 4 normal Not Available [facility] ([facility]) [address] [facility] [place], [address], 08/24/2025 09:07:59 08/23/2008/24/2025 COMP. METAB OLIC PANEL (14) potassium 3.7 mmol/ L 3.5-5. 2 normal Not Available [facility] ([facility]) [address] [facility] [place], [address], 08/24/2025 09:07:59 08/23/2008/24/2025 COMP. METAB OLIC PANEL (14) chloride 100 mmol/ L 96-106 normal Not Available [facility] ([facility]) [address] [facility] [place], [address], 08/24/2025 09:07:59 08/23/20 25 08/24/2025 COMP. METAB OLIC PANEL (14) carbon dioxide, total 23 mmol/ L 20-29 normal Not Available [facility] ([facility]) [address] [facility] [place], [address], 08/24/2025 09:07:59 08/23/2008/24/2025 COMP. METAB OLIC PANEL (14) calcium 9.8 mg/dL 8.7-10 .3 normal Not Available [facility] ([facility]) [address] [facility] [place], [address], 08/24/2025 09:07:59 08/23/20 25 08/24/2025 COMP. METAB OLIC PANEL (14) protein, total 7.3 g/dL 6.0-8. 5 normal Not Available [facility] ([facility]) [address] [facility] [place], [address], 08/24/2025 09:07:59 08/23/20 25 08/24/2025 COMP. METAB OLIC PANEL (14) albumin 4.2 g/dL 3.9-4. 9 normal Not Available [facility] ([facility]) [address] [facility] [place], [address], 08/24/2025 09:07:59 08/23/2008/24/2025 COMP. METAB OLIC PANEL (14) globulin, total 3.1 g/dL 1.5-4. 5 Not Available [facility] ([facility]) [address] [facility] [place], [address], 08/24/2025 09:07:59 08/23/2008/24/2025 COMP. METAB OLIC PANEL (14) bilirubin, total 0.4 mg/dL 0.0-1. 2 normal Not Available [facility] ([facility]) [address] [facility] [place], [address], 08/24/2025 09:07:59 08/23/20 25 08/24/2025 COMP. METAB OLIC PANEL (14) alkaline phosphatase 89 IU/L 49-135 normal Not Available [facility] ([facility]) [address] [facility], [place], [address], 08/24/2025 09:07:59 08/23/2008/24/2025 COMP. METAB OLIC PANEL (14) AST (SGOT) 18 IU/L 0-40 normal Not Available [facility] ([facility]) [address] [facility] [place], [address], 08/24/2025 09:07:59 08/23/2008/24/2025 COMP. METAB OLIC PANEL (14) ALT (SGPT) 10 IU/L 0-32 normal Not Available [facility] ([facility]) [address] [facility] [place], [address], 08/24/2025 09:07:59 08/23/2008/24/2025 LIPID PANEL cholesterol, total 129 mg/dL 100-19 9 normal Not Available [facility] ([facility]) [address] [facility] [place], [address], 08/24/2025 09:07:59 08/23/2008/24/2025 LIPID PANEL triglyceride s 109 mg/dL 0-149 normal Not Available [facility] ([facility]) [address] [place], [address], 08/24/2025 09:07:59 08/23/20 25 08/24/2025 LIPID PANEL HDL cholesterol 48 mg/dL >39 normal Not Available [facility] ([facility]) [address] [place], [address], 08/24/2025 09:07:59 08/23/2008/24/2025 LIPID PANEL VLDL cholesterol agueda 20 mg/dL 5-40 Not Available [facility] ([facility]) [address] [place], [address], 08/24/2025 09:07:59 08/23/2008/24/2025 LIPID PANEL LDL chol calc ([facility]) 61 mg/dL 0-99 Not Available [facility] ([facility]) [address] [place], [address], 08/24/2025 09:07:59 08/23/2008/24/2025 LIPID PANEL LDL calc comment: LIABILITY CLAIMS EXAMINER Not Available [facility] ([facility]) [address] [place], [address], 08/24/2025 09:07:59 08/23/2008/24/2025 HEMOG LOBIN A1C hemoglobin A1C 6.5 % 4.8-5. 6 above high normal Predi abete s: 5.7 - 6.4 Diabe radha: >6.4 Glyce mary contr ol for adult s with diabe radha: <7.0 Not Available [facility] ([facility]) [address] [place], [address], 08/24/2025 09:08:00 08/23/2008/24/2025 TSH TSH 0.321 uIU/m L 0.450- 4.500 below low normal Not Available [facility] ([facility]) [address] [facility], [place], [address], 08/24/2025 09:08:00 08/23/20 25 08/24/2025 VITAM IN D, 25-HY DROXY vitamin D, 25-hydroxy 112.0 NG/mL 30.0-1 00.0 above high normal Vitam in D defic iency has been defin ed by the Insti tute of Medic ine and an Endoc rine Socie ty pract ice guide line as a level of serum 25-OH vitam in D less than 20 ng/mL (1,2) . The Endoc rine Socie ty went on to furth er defin e vitam in D insuf ficie ncy as a level betwe en 21 and 29 ng/mL (2). 1. IOM (Inst itute of Medic ine). 2010. Blanca ry refer ence april es for calci um and D. Brad webster [place]: The Natio nal [facility] Press . 2. Jose alexander MF, Erin ervin [place], Tatiana off-F errar i KONG, et al. Evalu ation , treat ment, and preve ntion of vitam in D defic iency : an Endoc rine Socie ty clini agueda pract ice guide line. JCEM. 2010; 96(7) :1911 -30. Not Available [facility] ([facility]) [address] [facility], [place], [address], 08/24/2025 09:08:01 04/11/20 elect aslly smith am No observ ation record ed. [email or web address] Not Available 2024 17:50:49 Result Notes None recorded. Problems Name Problem SNOMED Code Status Onset Date Resolution Date Notes Provider Name and Address Organization Details Recorded Time Chronic neck pain 131189708475 7 Active 2023 TONY Tim [address] [place] [address], [address]492 8, [facility] [employer], [facility]. 4 10:34:35 Cervical spondylos is 163948816 Active 2023 TONY Tim [address] [place] [address], [address] 8, [employer] 4 10:34:48 Hypothyro idism 64628718 Active 2023 OTNY Tim [address] [place] [address], [address] 8, [place] [employer] 4 10:35:00 Migraine 61306159 Active 2023 TONY Tim [address] [place] [address], 53545[address]753 8, [place] [employer] 5 13:15:35 Hyperlipi demia 13173903 Active 2023 TONY Tim [address] [place] [address], 58[address] 8, [employer] 4 10:35:31 Depressiv e disorder 95436912 Active 2023 TONY Tim [address] [place] [address], 35298[address]812 8, [employer] 4 10:36:00 Influenza A virus present 556864233645 Completed 202301/10/2025 TONY Tim [address] [place] [address], 92401[address] 8, [employer] 5 13:25:22 Chronic kidney disease 722284789 Active 2023 TONY Tim [address] [place] [address], 97089-695 8, [employer] 4 13:08:43 Acute right otitis media 990287769 Completed 202301/10/2025 TONY Tim [address] [place] [address], 19818[address] 8, [employer] 5 13:25:10 Generaliz ed anxiety disorder 65559400 Active 2023 TONY Tim [address] [place] [address], 536[address]812 8, [employer] 4 13:08:53 Vitamin D deficienc y 41936427 Active 2023 TONY Tim [address] [place] [address], 62784-037 8, [employer] 4 13:08:48 Newly diagnosed diabetes 603504250 Active 2023 TONY Tim [address] [place] [address], 17675-768 8, [employer] 4 17:00:53 Type 2 diabetes mellitus without complicat ion 993933929 Active 2023 TONY Tim [address] [place] [address], 23233-270 8, [employer] 4 17:04:31 Diabetes mellitus 43206363 Active 2023 TONY Tim [address] [place] [address], 05256-394 8, [employer] 5 13:25:17 Fracture at wrist and/or hand level 481350458 Completed 202308/23/2025 TONY Tim [address] [place] [address], 31812-110 8, [employer] 5 14:50:11 Fracture of shoulder 924372041186 96801 Completed 202308/23/2025 TONY Tim [address] [place] [address], 89121-181 8, [employer] 5 14:50:07 Osteopeni a 465993880 Active 2024 TONY Tim [address] [place] [address], 50912-017 8, [employer] 5 14:58:45 Tachycard ia 5986750 Active 2024 TONY Tim [address] [place] [address], 74976-593 8, [employer] 5 15:28:41 Primary insomnia 3216289 Active 2024 TONY Tim [address] [place] [address], 65882-874 8, [employer] 17:14:39 Grief finding 731882261 Active 2024 TONY Tim [address] [place] [address], 20126-265 8, [employer] 14:51:12 Loss of appetite 50953127 Active 2024 TONY Tim [address] [place] [address], 81584-862 8, [employer] 14:54:01 Disorder of kidney due to diabetes mellitus 078477267 Active 2024 TONY Tim [address] [place] [address], 80568-443 8, [employer] 12:20:03 Problem Notes None recorded. Procedures Surgical History Date Name Laterality Status Provider Name and Address Organization Details Recorded Time Gallbladder Surgery completed Elviashahla Yepez [employer] 04/23/2025 16:45:35 Diabetic Foot Screen completed TONY Tim [address] [place] [address], [address], [employer] 03/07/2025 13:17:20 Caesarean Section completed [employer] 10/01/2024 10:06:43 Tubal Ligation completed [employer] 10/01/2024 10:06:43 Thyroid Surgery completed [employer] 10/01/2024 10:06:43 Imaging Results None recorded. Procedure Notes None recorded. Medical Equipment None Reported. Allergies Allergen ID Allergen Name Allergen Category Reaction Reaction Severity Criticality Documentation Date Start Date Code Code System Note Provider Name and Address Organization Details Recorded Time 09364 Product containin g penicilli n (product) medicatio n rash Not available Not available 10/01/2024 36933 8001 SNOMED Chromatin, [employer] 10:06:41 Medications Name Sig Start Date [...] Avai lable levothyroxi ne 50 mcg tablet 11/05 completed Not Available Not Available [...] height Body mass index (BMI) Body weight Oxygen saturation Oxygen saturation in Arterial blood by Pulse oximetry Heart rate Body temperature Systolic And Diastolic Provider Name and Address Organization Details Last Updated DateTime 5 162.56 cm 34.5 kg/m2 44658.0 7 g 95 % 95 % 104 /min 98.3 [degF] 100/70 mm[Hg] [employer] 5 13:02:25 Date Recorded Body height Body mass index (BMI) Body weight Heart rate Oxygen saturation Oxygen saturation in Arterial blood by Pulse oximetry Body temperature Systolic And Diastolic Provider Name and Address Organization Details Last Updated DateTime 5 162.56 cm 32.6 kg/m2 31521.5 5 g 131 /min 95 % 95 % 97.3 [degF] 100/71 mm[Hg] [employer] 5 17:28:15 Date Recorded Body height Body mass index (BMI) Body weight Body temperature Heart rate Oxygen saturation Oxygen saturation in Arterial blood by Pulse oximetry Systolic And Diastolic Provider Name and Address Organization Details Last Updated DateTime 5 162.56 cm 32.6 kg/m2 88534.2 5 g 97.9 [degF] 94 /min 95 % 95 % 108/73 mm[Hg] Elvia Yepez [employer] 5 16:47:36 Date Recorded Body height Body mass index (BMI) Body weight Oxygen saturation Oxygen saturation in Arterial blood by Pulse oximetry Heart rate Body temperature Systolic And Diastolic Provider Name and Address Organization Details Last Updated DateTime 5 162.56 cm 32.7 kg/m2 50274.7 1 g 96 % 96 % 98 /min 98.1 [degF] 104/70 mm[Hg] [employer] 5 16:58:58 Date Recorded Body height Body mass index (BMI) Body weight Body temperature Heart rate Oxygen saturation Oxygen saturation in Arterial blood by Pulse oximetry Systolic And Diastolic Provider Name and Address Organization Details Last Updated DateTime 5 162.56 cm 29.6 kg/m2 79920.0 4 g 97.8 [degF] 104 /min 96 % 96 % 106/76 mm[Hg] [employer]. 17:09:10 Social History Question Answer Notes LastModified by Organizat ion Details LastModified Time Tobacco Smoking Status Never Smoker [facility][1] [employer] 10/01/2024 10:06:43 Do You Have An [...] Information not available 08/20/2025 What Type Of Bench Machine Operator Do You Use? None Information not available [...] Or The Highest Degree You Have Received? [id number] Information not available 10/01/2024 How Many Days [...] Do You Have A Medical Power Of Solder Sprayer? No Information not available 10/01/2024 What Was [...] Status Question Answer Note LastModified by Organizat ion Details LastModified Time Do you use any [...] Mental Status Question Answer Note LastModified by Organizat ion Details LastModified Time Do you feel stressed (tense, restless, nervous, or anxious, or unable to sleep at night)? [id number] Information not available 10/01/2024 Do you have [...] Artery Disease N Other N Gout N Blood Diseases N Kidney Stones N Hyperthyroidism N Blood Transfusion N Breast Cancer N Emergency room visit since last appointm ent. N Lung Disease N COPD N Depression Y Hypothyroidism N Dermatologic Disorders N Defects or Inherited Disease N Developmental or Behavioral Disorders N Breast Problem N Difficulty Swallowing N [...] N High Cholesterol N Liver Disease N Organ Transplant N Psychiatric/Mental Health Condition N Dialysis N Headaches Y Fibromyalgia N Schizophrenia N Kidney Disease N Allergies/Hayfever N Heart Problems N Ear or Hearing Problems N Hospitalizations N Learning Disorder N Artificial Joints N Thyroid Problems Y GI Problems N Acne N ADD/ADHD N Eating Disorder N Anemia N Constipation N Mental Illness N Diabetes Y Ovarian Cancer N Bedwetting N Hepatitis/Liver Disease N Tuberculosis N Eczema N Abuse/Domestic Violence N Diverticulitis N Asthma N Trauma/Violence N Substance Abuse [...] or 50 mcg/0.25mL dose 11/13/2020 completed Meg ingram [place] [employer] 11/05/2024 08:54:28 COVID-19, mRNA, LNP-S, PF, 100 mcg/0.5mL dose or 50 mcg/0.25mL dose 12/15/2020 completed Meg ingram, [employer] 11/05/2024 08:54:28 COVID-19, mRNA, LNP-S, PF, 100 mcg/0.5mL dose or 50 mcg/0.25mL dose 09/11/2021 completed Megtroy ingram [employer], [employer] 11/05/2024 08:54:28 Past Encounters Encounter ID Performer Location Encounter Start Date Encounter Closed Date Diagnosis/Indication Diagnosis SNOMED-CT Code Diagnosis ICD10 Code Diagnosis IMO Codes Diagnosis Note [id number] TONY Tim [facility] [address] [place] [address] 10/01/2024 09:55:47 10/01/2024 11:01:24 Screening mammography 81844661 Z12.31 Cough 88647099 R05.9 Sore throat 932132813 J0 2.9 Influenza A virus present 9416155636 08 J09.X2 Cervical spondylosis 387 205036 M47.812 Hyperlipidemia 03169758 E78.5 Hypothyroidism 68230952 E03.9 Migraine 55177681 G43.90 9 Body mass index 40+ - severely obese 665421051 Z68.41 Acute righ t otitis media 884020421 H66.91 Depressive disorder 3548 9007 F32.A Generalize d anxiety disorder 25359522 F41.1 Adult heal th examination 951054034 Z00.00 [id number] [place] [address] 11/05/2024 08:36:07 11/05/2024 09:20:39 Fracture at wrist and/or hand level 299845726 S62.91XA Fracture of shoulder 422 3970001 4916629 S42.90XA Type 2 alvina betes mellitus without complication 230328276 E11.9 Hypothyroidism 27861745 E03.9 Depressive disorder 3548 9007 F32.A Improving with Pristiq [id number] [place] [address] 12/13/2024 14:37:57 12/13/2024 14:38:24 Type 2 diabetes mellitus without complication 850391291 E11.9 Depressive disorder 3548 9007 F32.A Migraine 12996633 G43.90 9 Fracture of shoulder 418 1193624 3764007 S42.90XA Osteopenia 415764288 M85 .80 Hyperlipidemia 76711803 E78.5 Vitamin D deficiency 347 79255 E55.9 Cervical spondylosis 387 689535 M47.812 Hypothyroidism 55347757 E03.9 Generalize d anxiety disorder 40663504 F41.1 Body mass index 40+ - severely obese 181498570 Z68.41 [id number] TONY Tim [address] [address] 2025 12:51:10 2025 13:34:11 Depressive disorder 41660885 F32.A Type 2 alvina betes mellitus without complication [id number] E11.9 Cervical spondylosis 387 [id number] M47.812 Fracture of shoulder 332 [id number] S42.90XA [id number] TONY Tim [address] [address] 03/07/2025 12:39:07 03/07/2025 13:34:08 Type 2 diabetes mellitus [id number] E11.9 [id number] Screening for malignant neoplasm of colon 232172753 Z12.11 401975 Migraine 60703630 G43.90 9 69854 Depressive disorder 3548 9007 F32.A [id number] TONY Tim [address] [address] 04/11/2025 17:22:34 04/11/2025 17:48:43 Tachycardia 2454897 R00.0 69810 Patient is hypotensiv e, tachycardi c, has had intermitte nt shocks in her chest and looks acutely ill and uncomforta ble - daughter agrees to transport her to ER for further evaluation [id number] TONY Tim [address] [address] 04/23/2025 16:40:23 04/23/2025 17:10:22 History of cholecystectomy [id number] Z90.49 300280 [id number] TONY Tim [address] [address] 06/20/2025 16:50:30 06/20/2025 17:16:25 Type 2 diabetes mellitus 17911335 E11.9 [id number] Long-term current use of drug therapy [id number] Z79.899 41461652 Dizziness 594694566 R42 34771 Cervical spondylosis 387 182627 M47.812 Primary insomnia 6466857 F51.01 88850 Type 2 alvina betes mellitus without complication 228449117 E11.9 Hyperlipidemia 06025892 E78.5 Osteopenia 940180195 M85 .80 Vitamin D deficiency 347 33419 E55.9 Diabetes mellitus 786371 09 E11.9 Hypothyroidism 90197168 E03.9 [id number] TONY Tim [address] [address] 08/20/2025 16:48:09 08/20/2025 17:23:56 Generalized anxiety disorder 29280121 F41.1 Depressive disorder 3548 9007 F32.A Hyperlipidemia 32834411 E78.5 Type 2 alvina betes mellitus without complication 725414992 E11.9 Hypothyroidism 39233895 E03.9 Vitamin D deficiency 347 63489 E55.9 Chronic ki dney disease 646493618 N18.9 Grief finding 875311507 F43.20 11510 Loss of appetite 4677971 6 R63.0 54768 Health Concerns Section Related Observation LastModified by Organization Detai ls LastModified Time None Recorded Concern Status LastModified by Organization Details LastModified Time None Recorded Advance Directives Directive N: Payers Insurance Date Sequence Insurance Name Policy Number Policy Escamilla Covered Member ID Escamilla Member ID Guarantor Name 08/23/2025 1 [place] (MEDICARE REPLACEMENT HMO) [id number] Bella Estevesood [id number] Bella Livingood 04/23/2025 1 [employer] (MEDICARE REPLACEMENT/AD VANTAGE - PPO) Bella Presley [id number] Bella Livingood 08/17/2025 [place] [employer] - [facility] Bella Presley [id number] Bella Livingcarmelita Notes Date Note Type Note Provider Name and Address Organization Details Recorded Time 03/07/2025 text/html ROS as noted in the HPI Patient presents for followup.History of diabetes, recently diagnosed. HgA1c 6.8 today.Vraylar helpful for depressive symptoms but not covered by insurance.Still having headaches. Ubrelvy helps relieve the headaches but still having them more days than not. TONY Tim [address] [place] [address], [phone], [employer] 03/07/2025 15:20:35 04/11/2025 text/html ROS as noted in the HPI Patient states she has had dizziness off and on for the last few weeks. Last week she fell backwards in the hallway. She did not lose consciousness. States she is not drinking or eating well. Just does not feel thirsty and has no appetite. Has had a headache. Has had a few tiny shocks in her chest intermittently but they do not last long enough to even stop what she is doing. She feels weak, and just does not feel good at all. TONY Tim [address] [place], [address], [employer] 04/12/2025 15:30:36 04/23/2025 text/html ROS as noted in the HPI Patient presents for followup. Last time she was seen here, she was transferred to ER and admitted for sepsis. Had gallbladder removed the next day. States that she is feeling much better. Mild abdominal tenderness at surgical site. TONY Tim [address] [place], [address], [employer] 04/23/2025 17:16:51 06/20/2025 text/html ROS as noted in the HPI Patient presents for followup. History of HTN, DM, HLD, Vitamin D deficiency, hypothyroidism. Doing well. TONY Tim [address] [place], [address], [employer] 06/21/2025 16:18:43 08/20/2025 text/html ROS as noted in the HPI Patient presents for followup. History of anxiety/depression, HLD, DM, CKD, hypothyroidism, vitamin D deficiency. She lost her suddenly a few months ago. She is not eating and has lost 18 pounds. Daughter is concerned. TONY Tim [address] [place], [address], [employer] 08/23/2025 14:54:13 OBGyn Episode No OBEpisode recorded.
--- NOTE | 2025-09-02 17:20 | CT_ITS ---
PROCEDURE INFORMATION: Exam: CT Abdomen And Pelvis With Contrast Exam date and time: 09/02/2025 6:22 PM Age: 60 years old Clinical indication: Abdominal pain; Additional info: Diffuse abd pain, n/v x 2 wks, 20 lb wt loss TECHNIQUE: Imaging protocol: Computed tomography of the abdomen and pelvis with contrast. Total images: 316 Radiation optimization: All CT scans at this facility use at least one of these dose optimization techniques: automated exposure control; mA and/or kV adjustment per patient size (includes targeted exams where dose is matched to clinical indication); or iterative reconstruction. Contrast material: ISOVUE; Contrast volume: 75 ml; Contrast route: IV; COMPARISON: US ABDOMEN LIMITED 04/12/2025 9:08 AM FINDINGS: Lungs: 3-4 mm noncalcified left lower lobe pulmonary nodule. For patients at low risk (minimal or absent history of smoking and of other known risk factors), no routine follow-up is indicated. For patients at high risk (history of smoking or of other known risk factors), consider optional CT Chest at 12 months. (Reference: Dru) Heart: Normal heart size. Liver: Normal. No mass. Gallbladder and biliary ducts: Status post cholecystectomy. No biliary ductal dilatation. Pancreas: Normal. No ductal dilation. Spleen: Normal. No splenomegaly. Adrenal glands: Normal. No mass. Kidneys and ureters: Multifocal bilateral renal cortical scarring with secondary mild bilateral renal atrophy. 2 mm left renal calculus. No discrete mass or perinephric fluid. No hydronephrosis. Stomach and bowel: Unremarkable stomach. Duodenal wall thickening with hazy surrounding edema. 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 No associated midgut volvulus. No ileus or bowel obstruction. Unremarkable terminal ileum. Unremarkable colon and rectum. Appendix: No evidence for appendicitis. Intraperitoneal space: Unremarkable. No free air. No significant fluid collection. Vasculature: Mild atherosclerotic vascular disease. Nonaneurysmal abdominal aorta. Major abdominal vessels enhance appropriately. Lymph nodes: Unremarkable. No enlarged lymph nodes. Urinary bladder: Mild bladder wall thickening. Reproductive: Physiologic uterus and ovaries. No adnexal mass. Bones/joints: Osteopenia. Moderate to severe multilevel degenerative changes of the thoracolumbar spine including dish in lower thoracic levels. Remote moderate to severe compression deformity L1 vertebral body. Mild lumbar levocurvature. Mild degenerative changes bilateral hips and SI joints. Soft tissues: Tiny fat containing umbilical hernia. IMPRESSION: 1. Mild acute duodenitis versus peptic ulcer disease. Minor surrounding edema. No perforation. 2. 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 3. Bladder wall thickening from incomplete distension versus cystitis. 4. Additional chronic incidental findings. REFERENCES: Dru H, et al. Guidelines for Management of Incidental Pulmonary Nodules Detected on CT Images: From the Fleischner Society 2017. Radiology. 2017;284(1):228-243.
--- NOTE | 2025-09-02 17:22 | HMH.EDGENADL ---
Discharge Plan Disposition Patient Disposition: Admitted Prescriptions Prescriptions: No Action Vraylar 1.5 mg capsule 1.5 mg PO DAILY Qty: 30 2RF mirtazapine [Remeron] 30 mg tablet 30 mg PO HS Qty: 30 2RF trazodone 100 mg Tablet 100 mg PO DAILY levothyroxine [Synthroid] 100 mcg tablet 88 mcg PO DAILY Rx Instructions: 50 mcg's for 14 days and 100 mcg's after that alendronate 70 mg tablet 70 mg PO WEEKLY tramadol 50 mg tablet 50 mg PO TID baclofen 10 mg tablet 10 mg PO TID metformin 500 mg tablet extended release 24 hr 500 mg PO DAILY lisinopril 2.5 mg tablet 2.5 mg PO DAILY cholecalciferol (vitamin D3) 1,250 mcg (50,000 unit) capsule 1,250 mcg PO WEEKLY atorvastatin 10 mg tablet 10 mg PO HS Ubrelvy 100 mg tablet 100 mg PO DAILYP PRN (Reason: migraine headache) levofloxacin 750 mg tablet 750 mg PO DAILY 6 Days Qty: 6 0RF Referrals Follow up/Referrals: Sobeida Richmond PA [Primary Care Provider, Medical] - See instructions Clinical Impressions Clinical Impression: Nausea & vomiting, Acute dehydration, Abdominal pain, Unintentional weight loss, Migraine, UTI (urinary tract infection) Instructions Patient Instructions: DI for Acute Abdominal Pain Print Language Print Language: Taiwanese Discharge ED Provider: Jus Soler General Adult HPI General Chief complaint: Abdominal Pain Stated complaint: weak, abd pain, nausea Time Seen by Provider: 09/02/25 17:05 Mode of Arrival: Ambulatory Source of Information: Patient and Relative Description of Symptoms (Recalled from ER Triage Doc. by RN): Pt presents with c/o abd pain along with n/v/d for 3 weeks. Pt has general weakness as well as an 18lb unintentional weight loss in the last 6 weeks. History of Present Illness HPI narrative: Patient is a 60-year-old female presenting today with diffuse abdominal discomfort nausea and vomiting for the last 2 to 3 weeks. She has had 18 pounds of unintentional weight loss. Family states that they were trying to have a CT scan that was arranged outpatient but her symptoms continue to worsen and insurance has not yet approved this to be performed therefore the came to the emergency department with worsening symptoms. She states that she has had no urine output over the last 24 hours and is profoundly weak. Related Data Home Medications ?Medication ?Instructions ?Recorded ?Confirmed alendronate 70 mg tablet 70 mg PO WEEKLY 04/11/25 09/02/25 baclofen 10 mg tablet 10 mg PO TID 04/11/25 09/02/25 cholecalciferol (vitamin D3) 1,250 1,250 mcg PO WEEKLY vitamin d 04/11/25 09/02/25 mcg (50,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 lisinopril 2.5 mg tablet 2.5 mg PO DAILY 04/11/25 09/02/25 Held on 04/14/25. Instructions: Resume on 04/28/25. Your blood pressures have been normal without this medication. Please continue to hold until follow-up with PCP. metformin 500 mg tablet,extended 500 mg PO DAILY 04/11/25 09/02/25 release 24 hr tramadol 50 mg tablet 50 mg PO TID 04/11/25 09/02/25 atorvastatin 10 mg tablet 10 mg PO HS 04/12/25 09/02/25 ubrogepant 100 mg tablet (Ubrelvy) 100 mg PO DAILYP PRN migraine 04/12/25 09/02/25 headache levothyroxine 100 mcg tablet 88 mcg PO DAILY thyroid 09/02/25 09/02/25 (Synthroid) trazodone 100 mg tablet 100 mg PO DAILY 09/02/25 09/02/25 Previous Rx's ?Medication ?Instructions ?Recorded cariprazine 1.5 mg capsule 1.5 mg PO DAILY #30 caps 12/28/23 (Vraylar) mirtazapine 30 mg tablet (Remeron) 30 mg PO HS #30 tabs 12/28/23 levofloxacin 750 mg tablet 750 mg PO DAILY 6 days #6 tabs 04/14/25 Allergies Allergy/AdvReac Type Severity Reaction Status Date / Time sumatriptan (From IMITREX) Allergy Severe S-DROP IN Verified 01/01/25 09:50 B/P Penicillins (PENICILLINS) Allergy Intermediate I-HIVES Verified 01/01/25 09:50 topiramate (From Topamax) Allergy Intermediate S-DROP IN Verified 01/01/25 09:50 B/P PFSH PFSH Disclaimer: The information contained in this section may have been updated after the patient was seen, as this information can be updated by other users. Medical History Depression Anxiety Hyperlipidemia Hypertension Hypothyroidism Concussion Fracture of lumbar spine Surgical History delivery delivered H/O thyroidectomy History of facial surgery Family History Other Family history of diabetes mellitus Family history of heart disease Social History Smoking Status: Never smoker alcohol intake: never substance use type: denies use current occupational status: retired Travel in the last 8 weeks?: None household members: spouse housing: house caffeine: Yes Have you lived/traveled outside US in past 30 days?: No Contact w/someone who lives/traveled outside US past 30 days?: No Exposure to someone with infectious disease in past 14 days?: No Do you have a fever (greater than 100.4 F or 38 C)?: No Have you tested positive for COVID-19?: No Exposed to someone with COVID-19 in past 14 days?: No Do you have a sore throat?: No Do you have a cough?: No Do you have any weakness?: No Do you have any diarrhea?: No Are you experiencing any unusual bleeding?: No Do you have any muscle aches/pain?: No Do you have any abdominal pain?: Yes Are you experiencing loss of taste or smell?: No Other Medical History Have you received the Flu Vaccine for this season: No Have you received the Pneumonia Vaccine: No ROS Obtained: Yes All systems reviewed & no additional complaints except as documented Physical Exam General General appearance: alert and in no apparent distress ENT ENT exam: Present other (Dry mucous membrane) Respiratory Respiratory exam: Present normal lung sounds bilaterally Cardiovascular Cardiovascular exam: Present other (Cool extremities poor capillary refill) Abdominal Exam Abdominal exam: Present soft and tenderness (Diffusely tender no rebound or guarding or masses felt); Absent distention Neurological Exam Neurological exam: Present oriented X3 Medical Decision Making Medical Records Screening: Per USPSTF and CDC recommendations, given the prevalence of disease in our region, it is our hospital?s policy to screen for HIV and viral Hepatitis for all patients aged 18 and over and those with ongoing risk factors. Jose Ramon Inquiry Pt receiving controlled substance: No Vital Signs: 09/02/25 17:03 09/02/25 18:00 09/02/25 18:29 Temperature 97.8 F Temperature Source Oral Pulse Rate 88 79 Pulse Rate [Right] 96 H Respiratory Rate 18 17 19 Blood Pressure 108/65 L 127/70 Blood Pressure [Right Arm] 121/76 Blood Pressure Mean Blood Pressure Mean [Right Arm] 91 Blood Pressure Source [Right Arm] Automatic Cuff Blood Pressure Position [Right Arm] Sitting 02 Sat by Pulse Oximetry 98 100 99 Oxygen Delivery Method Room Air 09/02/25 19:00 09/02/25 19:00 09/02/25 19:15 Temperature Temperature Source Pulse Rate 74 69 Pulse Rate [Right] Respiratory Rate 22 21 Blood Pressure 114/65 Blood Pressure [Right Arm] Blood Pressure Mean 81 Blood Pressure Mean [Right Arm] Blood Pressure Source [Right Arm] Blood Pressure Position [Right Arm] 02 Sat by Pulse Oximetry 95 96 Oxygen Delivery Method Room Air Room Air Lab Data Lab results reviewed: Yes I reviewed the patient's lab results. Lab Results 09/02/25 17:25: WBC 18.8 H, RBC 5.17, Hgb 13.5, Hct 41.4, MCV 80.1 L, MCH 26.1 L, MCHC 32.6, RDW 15.0, Plt Count 292, MPV 8.7, Neut % (Auto) 87.4 H, Lymph % (Auto) 7.4 L, [place] % (Auto) 4.1, Eos % (Auto) 0.2, Baso % (Auto) 0.3, Neut # (Auto) 16.4 H, Lymph # (Auto) 1.4, [place] # (Auto) 0.8, Eos # (Auto) 0.0, Baso # (Auto) 0.1, Sodium 136, Potassium 3.5, Chloride 101, Carbon Dioxide 23, Anion Gap 15.5 H, BUN 14, Creatinine 1.00, Estimated Creat Clear 71, Estimated GFR 56 L, Est GFR ( Amer) 68, Glucose 124 H, Calcium 9.1, Phosphorus 2.5, Magnesium 1.2 L, Total Bilirubin 0.9, AST 28, ALT 17, Alkaline Phosphatase 117, Total Protein 7.2 D, Albumin 3.5, Globulin 3.7 H, Albumin/Globulin Ratio 0.9 L, Lipase 120 09/02/25 17:39: Lactate 1.1 09/02/25 19:28: Urine Color Yellow, Urine Appearance Clear, Urine pH 7.0, Ur Specific [place] <= 1.005, Urine Protein 1+ A, Urine Glucose (UA) Negative, Urine Ketones 2+, Urine Blood 1+ A, Urine Nitrate Negative, Urine Bilirubin 1+ A, Urine Urobilinogen 1.0, Ur Leukocyte Esterase 2+ A, Urine WBC Tntc, Urine Bacteria 1+ 09/02/25 17:25 09/02/25 17:25 Orders (Tests/Meds): ED MEDICATIONS Generic Name Dose Route Start Last Admin Trade Name Freq PRN Reason Stop Dose Admin Ceftriaxone Sodium 1 gm/ 50 mls @ 100 mls/hr 09/02/25 20:33 Sodium Chloride IV 09/02/25 21:02 ONCE ONE Discontinued Medications Generic Name Dose Route Start Last Admin Trade Name Freq PRN Reason Stop Dose Admin Diphenhydramine HCl 25 mg 09/02/25 19:38 09/02/25 19:46 Diphenhydramine 50mg/Ml Vial IV 09/02/25 19:39 25 mg ONCE ONE Administration Lactated Ringer's 1,000 mls @ 999 mls/hr 09/02/25 17:30 09/02/25 17:34 Lactated Ringer's 1000 Ml Bag IV 09/02/25 18:30 999 mls/hr .Q1H1M DARLIN Administration Iopamidol 75 ml 09/02/25 18:19 09/02/25 18:20 Iopamidol-370 (76%);100ml Bottle IV 09/02/25 18:20 75 ml ONCE ONE Administration Ondansetron HCl 4 mg 09/02/25 17:20 09/02/25 17:34 Ondansetron 4mg/2ml Vial IV 09/02/25 17:21 4 mg ONCE ONE Administration Prochlorperazine Edisylate 10 mg 09/02/25 19:38 09/02/25 19:45 Prochlorperazine 10mg/2ml Vial IV 09/02/25 19:39 10 mg ONCE ONE Administration Sodium Chloride 10 ml 09/02/25 18:19 09/02/25 18:20 Sodium Chloride 0.9% 10ml Syr (Rad Only) IV 09/02/25 18:20 10 ml ONCE ONE Administration ORDERS Category Date Time Status CT abdomen pelvis w con Stat Cat Scan 09/02/25 17:20 Completed CBC w/Auto Diff [Complete Blood Count Auto Diff] Stat Lab 09/02/25 17:25 Completed CMP [Comprehensive Metabolic Panel] Stat Lab 09/02/25 17:25 Completed Lactic Acid Stat Lab 09/02/25 17:39 Completed Lipase Stat Lab 09/02/25 17:25 Completed Magnesium Stat Lab 09/02/25 17:25 Completed Phosphorous Stat Lab 09/02/25 17:25 Completed UA [Urinalysis and Microscopic] Stat Lab 09/02/25 19:28 Completed Urine Culture Stat Micro 09/02/25 19:28 Received Medical Decision Narrative: 60-year-old with above history and physical has had nausea vomiting diarrhea for 3 weeks with 20 pounds of unintentional weight loss differential includes prolonged infectious cause such as a virus, bowel obstruction, malignancy etc. Will get a contrasted CT scan administer IV fluids etc and reassess. CT scan was performed which I personally interpreted which shows no intra-abdominal emergency. Radiology read suggested that there is some thickening around the duodenal region with some slight inflammation and no evidence of perforation but this could represent peptic ulcer disease or duodenitis. Patient is feeling somewhat better on reassessment at 7:39 PM but still has a significant headache/migraine. She is very concerned about going home given the fact that she is already tried multiple medications at home and her daughter who is a nurse is actually already given her IV fluids. We opted to give her Compazine and Benadryl to treat both her headache/migraine as well as her nausea and to let her fluids finish and put her in ED observation status and reassess and p.o. challenge her at that point to make a decision. Abdominal exam is relatively benign at this point I do not think that she needs an emergency scope this can be done outpatient they are aware and agreeable to this but primarily would want to come in the hospital potentially for IV fluids and symptomatic control. Reassessment 8:36 PM patient does feel somewhat better from a headache and nausea standpoint but still does not feel great. Urine returned that is consistent with urinary tract infection Rocephin was administered. Now that she has a need for antibiotics and has failed IV fluids and Zofran at home and the symptoms have been ongoing for 3 weeks with moderate dehydration already after shared decision make with her family we all opted that being admitted in the hospital would serve her best as she is high likelihood for decompensation if she continues to vomit at home. I spoke with Beth with hospital medicine who agreed to admit this patient for further evaluation and management. Critical Care Critical Care Time Critical Care Time: Yes Attestation: On 09/02/25, the high probability of a clinically significant, sudden or life threatening deterioration of the following system(s) required my full and direct attention, intervention and personal management. The time I documented below is in addition to time spent performing reported procedures but includes the following listed in this critical care notation. Total Time Total Critical Care Time: 35
[2025-09-02] MEDS: LACTATED RINGERS 1000ML 1,000 ML 999 ML IV (17:34)
[2025-09-02] MEDS: ONDANSETRON 4MG/2ML VIAL 4 MG IV (17:34)
[2025-09-02 17:35] LABS: Hematocrit 41.4 % (37.0-47.0); Hemoglobin 13.5 g/dL (12.2-16.2); Immature Granulocytes % 0.6 %; Mean Corpuscular HGB Conc 32.6 g/dL (31.8-35.4); Mean Corpuscular Hemoglobin 26.1 pg (27.0-31.2); Mean Corpuscular Volume 80.1 fl (81-99); Nucleated Red Blood Cells % 0 %; Platelet Count 292 K/mm3 (142-424); Red Blood Count 5.17 M/mm3 (4.20-5.40); Red Cell Distribution Width-SD 43.5 fL; White Blood Count 18.8 K/mm3 (4.8-10.8)
[2025-09-02 17:57] LABS: Alanine Aminotransferase 17 U/L (12-78); Albumin Level 3.5 g/dl (3.5-5.0); Albumin/Globulin Ratio 0.9 (1.1-1.8); Alkaline Phosphatase 117 U/L (38-126); Anion Gap 15.5 mEq/L (5-15); Aspartate Amino Transferase 28 U/L (14-36); Bilirubin,Total 0.9 mg/dl (0.2-1.3); Blood Urea Nitrogen 14 mg/dl (7-17); Calcium 9.1 mg/dl (8.4-10.2); Carbon Dioxide 23 mmol/L (22.0-30.0); Chloride 101 mmol/L (98-107); Creatinine Clearance Estimated 71 mL/min (50-200); Creatinine,Serum 1.00 mg/dl (0.52-1.04); Estimated Glomerular Filt Rate 56 ml/min (>60); GFR (African American) 68 ML/MIN (>60); Globulin 3.7 g/dL (1.3-3.2); Glucose 124 mg/dl (74-100); Lipase 120 U/L (23-300); Potassium 3.5 mmoL/L (3.5-5.1); Sodium 136 mmol/L (136-145); Total Protein,Serum 7.2 g/dl (6.3-8.2)
[2025-09-02] MEDS: IOPAMIDOL-370 (76%);100ML BOTTLE 75 ML IV (18:20)
[2025-09-02] MEDS: SODIUM CHLORIDE 0.9% 10ML SYR (RAD ONLY) 10 ML IV (18:20)
[2025-09-02 19:05] LABS: Magnesium 1.2 mg/dl (1.6-2.3); Phosphorous 2.5 mg/dl (2.5-4.5)
[2025-09-02 19:33] LABS: Microscopic, Urine URINE MICROSCOPIC (MICROSCOPIC)
[2025-09-02 19:37] LABS: Color,Urine YELLOW (Yellow); Glucose,Urine (UA) Negative (Negative); Ketones,Urine 2+ (Negative); Leukocyte Esterase,Urine 2+ (Negative); PH,Urine 7.0 (5.0-8.5); Protein,Urine 1+ (Negative); Specific Gravity, Urine <= 1.005 (1.005-1.030); Urobilinogen,Urine 1.0 EU/dl (0.2)
[2025-09-02] MEDS: PROCHLORPERAZINE 10MG/2ML VIAL 10 MG IV (19:45)
[2025-09-02 20:04] LABS: Bilirubin,Urine 1+ (Negative)
[2025-09-02 20:07] LABS: Bacteria,Urine 1+ /lpf; WBC,Urine TNTC #/hpf (0-3)
--- NOTE | 2025-09-02 21:21 | PC.NURSE ---
Addendum entered by PERCY Rodriges 09/02/25 21:47: Patient arrived to the floor via wheelchair @ 0 Original Note: Patient arrived to floor via wheelchair @ 192
--- NOTE | 2025-09-02 21:53 | P.HP_ITS ---
<Statement entered by Guilherme Ontiveros MD - 09/08/25 15:41> Agree with plan of care as outlined by the CREW ATTENDANT. History of Present Illness *Admission Date: 09/02/25 *Reason for visit:: Nausea and vomiting *History of present illness: Patient is a 60-year-old female with a past medical history significant for hypothyroidism, depression, anxiety, hypertension, hypothyroidism. Patient presents to [facility] due to nausea, vomiting and abdominal guzman n. Patient reports symptoms have been ongoing for the past week. Denies any known alleviating or aggravating factors. States that she has had a decreased appetite and noted a 18 pound weight loss over the past month. Upon workup in the emergency department she was found to have urinary tract infection. CT abdomen noted mild acute duodenitis versus peptic ulcer disease. Patient denies any known alleviating or aggravating factors of symptoms. Reports poor oral intake due to nausea and vomiting. Patient is hemodynamically stable, alert and oriented. Denies fever, chills, chest pain, shortness of breath. ED workup included laboratory studies and imaging. Significant findings included WBC 18.8, anion gap 15.5, GFR 56, magnesium 1.2 UA with 1+ urine protein, 1+ urine blood, 1+ urine bilirubin, 2+ urine leukocyte esterase, 1+ bacteria. CT abdomen pelvis: Mild acute duodenitis versus peptic ulcer disease. Minor surrounding edema. No perforation. 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 Bladder wall thickening from incomplete distension versus cystitis. [facility] Disclaimer: The information contained in this section may have been updated after the patient was seen, as this information can be updated by other users. Medical History Depression Anxiety Hyperlipidemia Hypertension Hypothyroidism Concussion Fracture of lumbar spine Surgical History delivery delivered H/O thyroidectomy History of facial surgery Family History Other Family history of diabetes mellitus Family history of heart disease Social History Smoking Status: Never smoker alcohol intake: never substance use type: denies use current occupational status: retired Travel in the last 8 weeks?: None household members: spouse housing: house caffeine: Yes Have you lived/traveled outside [place] in past 30 days?: No Contact w/someone who lives/traveled outside [place] past 30 days?: No Exposure to someone with infectious disease in past 14 days?: No Do you have a fever (greater than 100.4 F or 38 C)?: No Have you tested positive for COVID-19?: No Exposed to someone with COVID-19 in past 14 days?: No Do you have a sore throat?: No Do you have a cough?: No Do you have any weakness?: No Are you experiencing any nausea/vomitting?: Yes Do you have any diarrhea?: No Are you experiencing any unusual bleeding?: No Do you have any muscle aches/pain?: No Do you have any abdominal pain?: Yes Are you experiencing loss of taste or smell?: No Other Medical History Have you received the Flu Vaccine for this season: No Have you received the Pneumonia Vaccine: No Review of Systems Review of Systems Review of systems:: pertinent systems reviewed and negative unless documented below Constitutional Constitutional: Reports fatigue, Reports poor appetite and Reports weight loss Eyes Eyes: Reports system reviewed and no additional complaints, except as documented ENT Ears, Nose, Mouth, and Throat: Reports dry mouth *Cardiovascular Cardiovascular: Reports system reviewed and no additional complaints, except as documented *Respiratory Respiratory: Reports system reviewed and no additional complaints, except as documented *Gastrointestinal Gastrointestinal: Reports abdominal pain and Reports vomiting *Genitourinary Genitourinary: Reports system reviewed and no additional complaints, except as documented *Musculoskeletal Musculoskeletal: Reports system reviewed and no additional complaints, except as documented Integumentary/Breasts Skin/Breast: Reports system reviewed and no additional complaints, except as documented *Neurologic Neurologic: Reports system reviewed and no additional complaints, except as documented Psychiatric Psychiatric: Reports system reviewed and no additional complaints, except as documented Endocrine Endocrine: Reports system reviewed and no additional complaints, except as documented and Reports fatigue Hematologic/Lymphatic Hematologic/Lymphatic: Reports system reviewed and no additional complaints, except as documented Allergic/Immunologic Allergic/Immunologic: Reports GI upset with certain foods Meds Home Medications and Allergies Home Medications ?Medication ?Instructions ?Recorded ?Confirmed ?Type cariprazine 1.5 mg capsule 1.5 mg PO DAILY #30 caps 09/02/25 Rx (Vraylar) alendronate 70 mg tablet 70 mg PO WEEKLY 04/11/25 History baclofen 10 mg tablet 10 mg PO TID 04/11/25 History lisinopril 2.5 mg tablet 2.5 mg PO DAILY 04/11/25 History Held on 04/14/25. Instructions: Resume on 04/28/25. Your blood pressures have been normal without this medication. Please continue to hold until follow-up with PCP. metformin 500 mg tablet,extended 500 mg PO DAILY 04/1109/02/25 History release 24 hr tramadol 50 mg tablet 50 mg PO TID 04/11/25 History atorvastatin 10 mg tablet 10 mg PO HS 04/12/25 5 History ubrogepant 100 mg tablet (Ubrelvy) 100 mg PO DAILYP AR N migraine 04/12/25 09/02/25 History headache aspirin 81 mg tablet 81 mg PO DAILY 09/02/2508/08 History levothyroxine 100 mcg tablet 88 mcg PO DAILY thyroid 1 09/02/25 History (Synthroid) trazodone 100 mg tablet 100 mg PO DAILY 09/02/25 History New Prescriptions to Start Prescriptions: Allergies Allergy/AdvReac Type Severity Reaction Status Date / Time sumatriptan (From IMITREX) Allergy Severe S-DROP IN Verified 01/01/25 09:50 B/P Penicillins (PENICILLINS) Allergy Intermediate I-HIVES Verified 01/01/25 09:50 topiramate (From Topamax) Allergy Intermediate S-DROP IN Verified 01/01/25 09:50 B/P Exam Data for Last 24 hours Vital signs and Labs for Last 24 Hours: Temp Pulse Resp BP Pulse Ox O2 Del Method 97.7 F 79 18 125/79 100 Room Air 09/02/25 21:21 09/02/25 21:21 09/02/25 21:21 09/02/25 21:21 09/02/25 21:21 09/02/25 21:26 Laboratory Results - last 24 hr 09/02/25 17:25: WBC 18.8 H, RBC 5.17, Hgb 13.5, Hct 41.4, MCV 80.1 L, MCH 26.1 L , MCHC 32.6, RDW 15.0, Plt Count 292, MPV 8.7, Neut % (Auto) 87.4 H, Lymph % (Auto) 7.4 L, [place] % (Auto) 4.1, Eos % (Auto) 0.2, Baso % (Auto) 0.3, Neut # (Auto) 16.4 H, Lymph # (Auto) 1.4, [place] # (Auto) 0.8, Eos # (Auto) 0.0, Baso # (Auto) 0.1, Sodium 136, Potassium 3.5, Chloride 101, Carbon Dioxide 23, Anion Gap 15.5 H, BUN 14, Creatinine 1.00, Estimated Creat Clear 71, Estimated GFR 56 L, Est GFR ( Amer) 68, Glucose 124 H, Calcium 9.1, Phosphorus 2.5, Magnesium 1.2 L, Total Bilirubin 0.9, AST 28, ALT 17, Alkaline Phosphatase 117, Total Protein 7.2 D, Albumin 3.5, Globulin 3.7 H, Albumin/Globulin Ratio 0.9 L, Lipase 120 09/02/25 17:39: Lactate 1.1 09/02/25 19:28: Urine Color Yellow, Urine Appearance Clear, Urine pH 7.0, Ur Specific [place] <= 1.005, Urine Protein 1+ A, Urine Glucose (UA) Negative, Urine Ketones 2+, Urine Blood 1+ A, Urine Nitrate Negative, Urine Bilirubin 1+ A , Urine Urobilinogen 1.0, Ur Leukocyte Esterase 2+ A, Urine WBC Tntc, Urine Bacteria 1+ I & O for Last 24 hours: Intake & Output 08/30/25 08/31/25 09/01/25 09/02/25 23:59 23:59 23:59 23:59 Intake Total 1000 / 1000 Balance 1000 / 1000 Weight 75.795 kg Constitutional Constitutional: no acute distress *Routine HEENT Exam Head: Present normocephalic Eye: Present EOMI and normal accommodation ENT: Present mucous membranes dry *Routine Neck Exam Neck: Present supple and full ROM *Routine Respiratory Exam Respiratory: Present normal respiratory effort *Routine Cardiovascular Exam Cardiovascular: Present RRR, Normal S1 and Normal S2 *Routine Abdominal Exam Abdominal: Present soft, normoactive bowel sounds and tenderness *Routine Rectal Exam Rectal:: deferred *Routine Genitalia Exam Genitalia:: deferred *Routine Extremities Exam Extremities: Present full ROM Routine Back/Spine/Pelvis Exam Back/Spine: Present full ROM *Routine Skin Exam Skin: Present intact *Routine Neurological Exam Neurological: Present alert, oriented X3 and CN II-XII intact Routine Psychiatric Exam Psychiatric: Present normal affect Assessment and Plan *Assessment and plan (1) UTI (urinary tract infection): Status: Acute Qualifiers: Hematuria presence: without hematuria Urinary tract infection type: acute cystitis Qualified Code(s): N30.00 - Acute cystitis without hematuria Category: Medical Code(s): N39.0 - Urinary tract infection, site not specified (2) Abdominal pain: Status: Acute Qualifiers: Abdominal location: generalized Qualified Code(s): R10.84 - Generalized abdominal pain Category: Medical Code(s): R10.9 - Unspecified abdominal pain (3) Leukocytosis: Status: Acute Qualifiers: Leukocytosis type: unspecified Qualified Code(s): D72.829 - Elevated white blood cell count, unspecified Category: Medical Code(s): D72.829 - Elevated white blood cell count, unspecified (4) Acute dehydration: Status: Acute Category: Medical Code(s): E86.0 - Dehydration (5) Nausea & vomiting: Status: Acute Qualifiers: Vomiting type: unspecified Qualified Code(s): R11.2 - Nausea with vomiting, unspecified Category: Medical Code(s): R11.2 - Nausea with vomiting, unspecified (6) Unintentional weight loss: Status: Acute Category: Medical Code(s): R63.4 - Abnormal weight loss (7) Hypomagnesemia: Status: Acute Category: Medical Code(s): E83.42 - Hypomagnesemia (8) Vitamin D deficiency: Status: Acute Category: Medical Code(s): E55.9 - Vitamin D deficiency, unspecified (9) Hypothyroidism: Status: Chronic Qualifiers: Hypothyroidism type: unspecified Qualified Code(s): E03.9 - Hypothyroidism, unspecified Category: Medical Code(s): E03.9 - Hypothyroidism, unspecified (10) Anxiety and depression: Status: Chronic Category: Medical Code(s): F41.9 - Anxiety disorder, unspecified; F32.A - Depression, unspecified (11) Hyperlipidemia: Status: Acute Qualifiers: Familial hypercholesterolemia type: unspecified type Category: Medical Code(s): E78.5 - Hyperlipidemia, unspecified Plan 1. UTI: Leukocytosis 18. Received IV Rocephin while in the emergency department, continue. Urine culture obtained and pending. Follow/monitor. 2. Dehydration/nausea and vomiting: Reports symptoms began couple weeks ago and progressively became worse. Received IV fluids while in the emergency department, continue IV fluids for hydration. Antiemetics-IV Zofran, for nausea symptoms. Will continue to monitor symptoms follow-up with labs in the morning. 3. Abdominal pain: Suspect multifactorial in nature. CT abdomen obtained noted mild acute duodenitis versus peptic ulcer disease-this is likely causing discomfort along with urinary tract infection. PPI, IV fluids for hydration, treating symptoms as noted above IV Zofran for nausea. Continue to monitor symptoms. 4. Unintentional weight loss: Patient reports losing approximately 18 pounds over the last month. States having a decreased appetite prior to her developing nausea and vomiting. Will continue to monitor-currently on clear liquid diet due to noted above. Nutrition consult in place. 5. Hypomagnesemia: Magnesium level 1.2. 2 g magnesium sulfate ordered with repeat magnesium level. Replace as necessary. Will continue to monitor follow- up labs in the morning. 6. Hypothyroidism: Resume home Synthroid when able to tolerate oral medication. 7. Anxiety and depression: Without complication, will resume home medications for anxiety and depression as appropriate patient is able to tolerate oral medication. 8. Hyperlipidemia: On statin therapy resume when able to tolerate oral medication. 9. DVT prophylaxis: SCDs This case was discussed with the emergency department provider. Admitted for UTI, acute dehydration. Resume IV antibiotic therapy along with IV fluid for hydration. Replace magnesium. Nutritional consults in place. Follow-up morning labs.
[2025-09-02] MEDS: MAGNESIUM SULFATE IN WATER 2 GM/50 ML PIGGYBACK IV (22:02)
[2025-09-02] MEDS: 0.9 % SODIUM CHLORIDE 1000ML 1,000 ML 75 ML IV (22:03)
[2025-09-03 04:00] VITALS: BP 105/64; PULSE 73; RESP 16; TEMP 36.8; O2SAT 97; BMI 26.8
[2025-09-03 06:06] LABS: Hematocrit 36.3 % (37.0-47.0); Immature Granulocytes % 0.5 %; Mean Corpuscular HGB Conc 31.7 g/dL (31.8-35.4); Mean Corpuscular Hemoglobin 25.3 pg (27.0-31.2); Mean Corpuscular Volume 79.8 fl (81-99); Nucleated Red Blood Cells % 0 %; Platelet Count 237 K/mm3 (142-424); Red Blood Count 4.55 M/mm3 (4.20-5.40); Red Cell Distribution Width-SD 43.6 fL; White Blood Count 15.0 K/mm3 (4.8-10.8)
[2025-09-03 06:16] LABS: Hemoglobin 11.5 g/dL (12.2-16.2)
[2025-09-03 06:17] LABS: Anion Gap 12.4 mEq/L (5-15); Blood Urea Nitrogen 10 mg/dl (7-17); Calcium 8.4 mg/dl (8.4-10.2); Carbon Dioxide 23 mmol/L (22.0-30.0); Chloride 103 mmol/L (98-107); Creatinine Clearance Estimated 70 mL/min (50-200); Creatinine,Serum 0.90 mg/dl (0.52-1.04); Estimated Glomerular Filt Rate 63 ml/min (>60); GFR (African American) 77 ML/MIN (>60); Glucose 106 mg/dl (74-100); Potassium 3.4 mmoL/L (3.5-5.1); Sodium 135 mmol/L (136-145)
[2025-09-03 06:18] LABS: POC Glucose,Bedside 89 gm/dL (70-110)
[2025-09-03 06:38] LABS: Magnesium 1.9 mg/dl (1.6-2.3)
[2025-09-03 07:59] VITALS: BP 103/57; PULSE 77; RESP 16; TEMP 36.6; O2SAT 96
--- NOTE | 2025-09-03 09:54 | HMH.PHAINT1 ---
Pharmacy Intervention Comments: MEDICATION RECONCILIATION COMPLETED ON PATIENT USING EXTERNAL FILL HISTORY FROM PHARMACY. -AUGUSTIN FUCHS, [place]
[2025-09-03 10:48] VITALS: BMI 26.8
[2025-09-03] MEDS: 0.9 % SODIUM CHLORIDE 1000ML 1,000 ML 75 ML IV (11:47)
[2025-09-03 11:49] LABS: Iron 50 ug/dL (37-170)
[2025-09-03] MEDS: ACETAMINOPHEN 325MG TAB 650 MG PO ×2 (11:51→18:11)
[2025-09-03 11:59] LABS: Total Iron Binding Capacity 192 ug/dL (265-497)
[2025-09-03 12:21] LABS: Thyroid Stimulating Hormone 2.65 uIU/mL (0.465-4.68)
[2025-09-03 12:24] LABS: POC Glucose,Bedside 90 gm/dL (70-110)
[2025-09-03 12:26] LABS: Ferritin 172 ng/ml (11.1-264)
[2025-09-03 12:40] LABS: Vitamin B12 429 pg/mL (239-931)
--- NOTE | 2025-09-03 13:22 | EXP.GE.CONS ---
History of Present Illness *Admission Date: 09/02/25 *History of present illness: Patient is a 60-year-old female with a past medical history significant for hypothyroidism, depression, anxiety, hypertension, hypothyroidism. Patient presents to [facility] due to nausea, vomiting and abdominal pain. Patient reports symptoms have been ongoing for the past week. Denies any known alleviating or aggravating factors. States that she has had a decreased appetite and noted a 18 pound weight loss over the past month. Upon workup in the emergency department she was found to have urinary tract infection. CT abdomen noted mild acute duodenitis versus peptic ulcer disease. Patient denies any known alleviating or aggravating factors of symptoms. Reports poor oral intake due to nausea and vomiting. Patient is hemodynamically stable, alert and oriented. Denies fever, chills, chest pain, shortness of breath. ED workup included laboratory studies and imaging. Significant findings included WBC 18.8, anion gap 15.5, GFR 56, magnesium 1.2 UA with 1+ urine protein, 1+ urine blood, 1+ urine bilirubin, 2+ urine leukocyte esterase, 1+ bacteria. CT abdomen pelvis: Mild acute duodenitis versus peptic ulcer disease. Minor surrounding edema. No perforation. 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 Bladder wall thickening from incomplete distension versus cystitis. per H&P This is a 60-year-old female who who underwent inpatient lap ellie in April. She returned to the ER after 3 weeks of nausea and vomiting multiple times a day. The patient denies heartburn or reflux. She denies medication change or diet change. She does report a loss of appetite and an 18 pound weight loss in the past 2 weeks. Patient became acutely dehydrated. She stopped urinating and presented to the ER. She is elevated white blood cell count of 18.8. She was inpatient for acute dehydration has received IV fluids and nausea medication. Patient has not had any vomiting today. 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 She did have evidence of acute duodenitis versus peptic ulcer disease with some mild surrounding edema. She denies any NSAID use. She denies any alcohol. No melena or hematochezia in her stool. She denies any bowel habit changes. She denies bloating belching or gassiness. She does report she has had some mucus in her stool in the past few days. She is a non-smoker. She is mildly tender to palpation epigastric area she believes from all the vomiting making her sore. She has not had an EGD. She does feel significantly better after rehydration with IV fluids and nausea medicine. She has not had any vomiting today. She was mildly anemic after rehydration but iron levels were normal. She denies melena or hematochezia. LFTs within normal limits. She denies exposure to other people with similar symptoms. She denies diarrhea. No family history of colon cancer or other GI cancers, IBD or celiac disease. [facility] Disclaimer: The information contained in this section may have been updated after the patient was seen, as this information can be updated by other users. Medical History Depression Anxiety Hyperlipidemia Hypertension Hypothyroidism Concussion Fracture of lumbar spine Surgical History delivery delivered H/O thyroidectomy History of facial surgery Family History Other Family history of diabetes mellitus Family history of heart disease Social History Smoking Status: Never smoker alcohol intake: never substance use type: denies use current occupational status: retired Travel in the last 8 weeks?: None household members: spouse housing: house caffeine: Yes Have you lived/traveled outside [place] in past 30 days?: No Contact w/someone who lives/traveled outside [place] past 30 days?: No Exposure to someone with infectious disease in past 14 days?: No Do you have a fever (greater than 100.4 F or 38 C)?: No Have you tested positive for COVID-19?: No Exposed to someone with COVID-19 in past 14 days?: No Do you have a sore throat?: No Do you have a cough?: No Do you have any weakness?: No Are you experiencing any nausea/vomitting?: Yes Do you have any diarrhea?: No Are you experiencing any unusual bleeding?: No Do you have any muscle aches/pain?: No Do you have any abdominal pain?: Yes Are you experiencing loss of taste or smell?: No Review of Systems Review of Systems Review of systems:: pertinent systems reviewed and negative unless documented below Constitutional Constitutional: Reports system reviewed and no additional complaints, except as documented and Reports anorexia Eyes Eyes: Reports system reviewed and no additional complaints, except as documented ENT Ears, Nose, Mouth, and Throat: Reports system reviewed and no additional complaints, except as documented *Cardiovascular Cardiovascular: Reports system reviewed and no additional complaints, except as documented *Respiratory Respiratory: Reports system reviewed and no additional complaints, except as documented *Gastrointestinal Gastrointestinal: Reports system reviewed and no additional complaints, except as documented, Reports nausea and Reports vomiting *Genitourinary Genitourinary: Reports system reviewed and no additional complaints, except as documented *Musculoskeletal Musculoskeletal: Reports system reviewed and no additional complaints, except as documented *Neurologic Neurologic: Reports system reviewed and no additional complaints, except as documented Endocrine Endocrine: Reports system reviewed and no additional complaints, except as documented Meds Home Medications and Allergies Home Medications ?Medication ?Instructions ?Recorded ?Confirmed ?Type alendronate 70 mg tablet 70 mg PO WEEKLY 04/11/25 09/02/25 History baclofen 10 mg tablet 10 mg PO TID 04/11/25 09/02/25 History metformin 500 mg tablet,extended 500 mg PO DAILY 04/11/25 09/02/25 History release 24 hr tramadol 50 mg tablet 50 mg PO TIDP PRN Moderate Pain 04/11/25 09/03/25 History (Scale Score 5-6) atorvastatin 10 mg tablet 10 mg PO HS 04/12/25 09/02/25 History ubrogepant 100 mg tablet (Ubrelvy) 100 mg PO DAILYP PRN migraine 04/12/25 09/02/25 History headache aspirin 81 mg tablet 81 mg PO DAILY 09/02/25 09/02/25 History trazodone 100 mg tablet 100 mg PO HS 09/02/25 09/03/25 History levothyroxine 88 mcg tablet 88 mcg PO DAILY 09/03/25 09/03/25 History lisinopril 2.5 mg tablet 2.5 mg PO DAILY 09/03/25 09/03/25 History New Prescriptions to Start Prescriptions: Allergies Allergy/AdvReac Type Severity Reaction Status Date / Time sumatriptan (From IMITREX) Allergy Severe S-DROP IN Verified 01/01/25 09:50 B/P Penicillins (PENICILLINS) Allergy Intermediate I-HIVES Verified 01/01/25 09:50 topiramate (From Topamax) Allergy Intermediate S-DROP IN Verified 01/01/25 09:50 B/P Exam (Inpt) Vital signs and Labs for Last 24 Hours: Temp Pulse Resp BP Pulse Ox O2 Del Method 97.8 F 77 16 103/57 L 96 Room Air 09/03/25 07:59 09/03/25 07:59 09/03/25 07:59 09/03/25 07:59 09/03/25 07:59 09/03/25 07:59 Laboratory Results - last 24 hr 09/02/25 17:25: WBC 18.8 H, RBC 5.17, Hgb 13.5, Hct 41.4, MCV 80.1 L, MCH 26.1 L, MCHC 32.6, RDW 15.0, Plt Count 292, MPV 8.7, Neut % (Auto) 87.4 H, Lymph % (Auto) 7.4 L, [place] % (Auto) 4.1, Eos % (Auto) 0.2, Baso % (Auto) 0.3, Neut # (Auto) 16.4 H, Lymph # (Auto) 1.4, [place] # (Auto) 0.8, Eos # (Auto) 0.0, Baso # (Auto) 0.1, Sodium 136, Potassium 3.5, Chloride 101, Carbon Dioxide 23, Anion Gap 15.5 H, BUN 14, Creatinine 1.00, Estimated Creat Clear 71, Estimated GFR 56 L, Est GFR ( Amer) 68, Glucose 124 H, Calcium 9.1, Phosphorus 2.5, Magnesium 1.2 L, Total Bilirubin 0.9, AST 28, ALT 17, Alkaline Phosphatase 117, Total Protein 7.2 D, Albumin 3.5, Globulin 3.7 H, Albumin/Globulin Ratio 0.9 L, Lipase 120 09/02/25 17:39: Lactate 1.1 09/02/25 19:28: Urine Color Yellow, Urine Appearance Clear, Urine pH 7.0, Ur Specific [place] <= 1.005, Urine Protein 1+ A, Urine Glucose (UA) Negative, Urine Ketones 2+, Urine Blood 1+ A, Urine Nitrate Negative, Urine Bilirubin 1+ A, Urine Urobilinogen 1.0, Ur Leukocyte Esterase 2+ A, Urine WBC Tntc, Urine Bacteria 1+ 09/03/25 05:15: WBC 15.0 H, RBC 4.55, Hgb 11.5 L D, Hct 36.3 L, MCV 79.8 L, MCH 25.3 L, MCHC 31.7 L, RDW 15.0, Plt Count 237, MPV 8.8, Neut % (Auto) 84.2 H, Lymph % (Auto) 10.0, [place] % (Auto) 4.6, Eos % (Auto) 0.5, Baso % (Auto) 0.2, Neut # (Auto) 12.6 H, Lymph # (Auto) 1.5, [place] # (Auto) 0.7, Eos # (Auto) 0.1, Baso # (Auto) 0.0, Sodium 135 L, Potassium 3.4 L, Chloride 103, Carbon Dioxide 23, Anion Gap 12.4, BUN 10 D, Creatinine 0.90, Estimated Creat Clear 70, Estimated GFR 63, Est GFR ( Amer) 77, Glucose 106 H, Calcium 8.4, Magnesium 1.9 D, Iron 50, TIBC 192 L, Iron Saturation 26.45449, Ferritin 172, Vitamin B12 429, TSH 2.65 09/03/25 06:11: POC Glucose 89 09/03/25 12:18: POC Glucose 90 I & O for Labs for Last 24 Hours: Intake & Output 09/01/25 09/02/25 09/03/25 09/04/25 11:59 11:59 11:59 11:59 Intake Total 2640 Output Total 0 Balance 2640 Weight 75.795 kg Microbiology Reports for the Last 24 Hours: Microbiology 09/02/25 19:28 Urine,Clean Catch Urine Culture - Preliminary Constitutional: no acute distress and cooperative Head: Present normocephalic and atraumatic Neck: Present normal inspection Respiratory: Present accessory muscle use and CTA bilaterally Cardiac: Present Reg Rate and Rhythm GI: Present soft, tenderness (Very mild TTP epigastric) and normal bowel sounds; Absent distention, Rodriguez's sign, ascites or mass Extremities: Present normal inspection Skin: Present intact Results Labs 09/03/25 05:15 09/03/25 05:15 Labs: Laboratory Results - last 24 hr 09/02/25 17:25: WBC 18.8 H, RBC 5.17, Hgb 13.5, Hct 41.4, MCV 80.1 L, MCH 26.1 L, MCHC 32.6, RDW 15.0, Plt Count 292, MPV 8.7, Neut % (Auto) 87.4 H, Lymph % (Auto) 7.4 L, [place] % (Auto) 4.1, Eos % (Auto) 0.2, Baso % (Auto) 0.3, Neut # (Auto) 16.4 H, Lymph # (Auto) 1.4, [place] # (Auto) 0.8, Eos # (Auto) 0.0, Baso # (Auto) 0.1, Sodium 136, Potassium 3.5, Chloride 101, Carbon Dioxide 23, Anion Gap 15.5 H, BUN 14, Creatinine 1.00, Estimated Creat Clear 71, Estimated GFR 56 L, Est GFR ( Amer) 68, Glucose 124 H, Calcium 9.1, Phosphorus 2.5, Magnesium 1.2 L, Total Bilirubin 0.9, AST 28, ALT 17, Alkaline Phosphatase 117, Total Protein 7.2 D, Albumin 3.5, Globulin 3.7 H, Albumin/Globulin Ratio 0.9 L, Lipase 120 09/02/25 17:39: Lactate 1.1 09/02/25 19:28: Urine Color Yellow, Urine Appearance Clear, Urine pH 7.0, Ur Specific [place] <= 1.005, Urine Protein 1+ A, Urine Glucose (UA) Negative, Urine Ketones 2+, Urine Blood 1+ A, Urine Nitrate Negative, Urine Bilirubin 1+ A, Urine Urobilinogen 1.0, Ur Leukocyte Esterase 2+ A, Urine WBC Tntc, Urine Bacteria 1+ 09/03/25 05:15: WBC 15.0 H, RBC 4.55, Hgb 11.5 L D, Hct 36.3 L, MCV 79.8 L, MCH 25.3 L, MCHC 31.7 L, RDW 15.0, Plt Count 237, MPV 8.8, Neut % (Auto) 84.2 H, Lymph % (Auto) 10.0, [place] % (Auto) 4.6, Eos % (Auto) 0.5, Baso % (Auto) 0.2, Neut # (Auto) 12.6 H, Lymph # (Auto) 1.5, [place] # (Auto) 0.7, Eos # (Auto) 0.1, Baso # (Auto) 0.0, Sodium 135 L, Potassium 3.4 L, Chloride 103, Carbon Dioxide 23, Anion Gap 12.4, BUN 10 D, Creatinine 0.90, Estimated Creat Clear 70, Estimated GFR 63, Est GFR ( Amer) 77, Glucose 106 H, Calcium 8.4, Magnesium 1.9 D, Iron 50, TIBC 192 L, Iron Saturation 26.22417, Ferritin 172, Vitamin B12 429, TSH 2.65 09/03/25 06:11: POC Glucose 89 09/03/25 12:18: POC Glucose 90 Assessment and Plan *Assessment and plan (1) Leukocytosis: Status: Acute Qualifiers: Leukocytosis type: unspecified Qualified Code(s): D72.829 - Elevated white blood cell count, unspecified Category: Medical Code(s): D72.829 - Elevated white blood cell count, unspecified (2) Unintentional weight loss: Status: Acute Category: Medical Code(s): R63.4 - Abnormal weight loss (3) Acute dehydration: Status: Acute Category: Medical Code(s): E86.0 - Dehydration (4) Nausea & vomiting: Status: Acute Qualifiers: Vomiting type: unspecified Qualified Code(s): R11.2 - Nausea with vomiting, unspecified Category: Medical Code(s): R11.2 - Nausea with vomiting, unspecified (5) Abnormal CT of the abdomen: Status: Acute Category: Medical Code(s): R93.5 - Abnormal findings on diagnostic imaging of other abdominal regions, including retroperitoneum Plan 1. Leukocytosis/dehydration/nausea vomiting/weight loss/abnormal CT Patient status post inpatient lap ellie back in April. Has had 3 weeks of nausea and vomiting multiple times a day. Has epigastric soreness she believes from the vomiting. Became acutely dehydrated had not urinated in multiple hours, lost 18 pounds in [address] scan noted acute duodenitis versus peptic ulcer disease with some surrounding edema. She did have white blood cell count of 18.8 upon arrival got an injection of Rocephin. Feels significantly better today after rehydration with IV fluid. No nausea vomiting today. No NSAIDs or alcohol. No melena hematochezia. No change in her bowel habits. CT also notes developmental malrotation of the proximal small bowel but no SBO or volvulus noted. Needs an EGD but can do this as an outpatient. Will try to add her on for an EGD in the next couple weeks if there is an availability otherwise I will see her in the office in the next week. Recommend discharge with nausea medication
[2025-09-03 16:00] VITALS: BP 96/65; PULSE 69; RESP 16; TEMP 36.6; O2SAT 96
--- NOTE | 2025-09-03 16:07 | P.PN_ITS ---
Subjective *Date: 09/03/25 *Time: 16:07 Interval history: Patient continues to have poor oral tolerance, abdominal pain, nausea. GI will pursue EGD in the morning, n.p.o. at midnight. Exam Data for Last 24 hours Vital signs and Labs for Last 24 Hours: Temp Pulse Resp BP Pulse Ox O2 Del Method 97.8 F 77 16 103/57 L 96 Room Air 09/03/25 07:59 09/03/25 07:59 09/03/25 07:59 09/03/25 07:59 09/03/25 07:59 09/03/25 07:59 Laboratory Results - last 24 hr 09/02/25 17:25: WBC 18.8 H, RBC 5.17, Hgb 13.5, Hct 41.4, MCV 80.1 L, MCH 26.1 L , MCHC 32.6, RDW 15.0, Plt Count 292, MPV 8.7, Neut % (Auto) 87.4 H, Lymph % (Auto) 7.4 L, [place] % (Auto) 4.1, Eos % (Auto) 0.2, Baso % (Auto) 0.3, Neut # (Auto) 16.4 H, Lymph # (Auto) 1.4, [place] # (Auto) 0.8, Eos # (Auto) 0.0, Baso # (Auto) 0.1, Sodium 136, Potassium 3.5, Chloride 101, Carbon Dioxide 23, Anion Gap 15.5 H, BUN 14, Creatinine 1.00, Estimated Creat Clear 71, Estimated GFR 56 L, Est GFR ( Amer) 68, Glucose 124 H, Calcium 9.1, Phosphorus 2.5, Magnesium 1.2 L, Total Bilirubin 0.9, AST 28, ALT 17, Alkaline Phosphatase 117, Total Protein 7.2 D, Albumin 3.5, Globulin 3.7 H, Albumin/Globulin Ratio 0.9 L, Lipase 120 09/02/25 17:39: Lactate 1.1 09/02/25 19:28: Urine Color Yellow, Urine Appearance Clear, Urine pH 7.0, Ur Specific [place] <= 1.005, Urine Protein 1+ A, Urine Glucose (UA) Negative, Urine Ketones 2+, Urine Blood 1+ A, Urine Nitrate Negative, Urine Bilirubin 1+ A , Urine Urobilinogen 1.0, Ur Leukocyte Esterase 2+ A, Urine WBC Tntc, Urine Bacteria 1+ 09/03/25 05:15: WBC 15.0 H, RBC 4.55, Hgb 11.5 L D, Hct 36.3 L, MCV 79.8 L, MCH 25.3 L, MCHC 31.7 L, RDW 15.0, Plt Count 237, MPV 8.8, Neut % (Auto) 84.2 H, Lymph % (Auto) 10.0, [place] % (Auto) 4.6, Eos % (Auto) 0.5, Baso % (Auto) 0.2, Neut # (Auto) 12.6 H, Lymph # (Auto) 1.5, [place] # (Auto) 0.7, Eos # (Auto) 0.1, Baso # (Auto) 0.0, Sodium 135 L, Potassium 3.4 L, Chloride 103, Carbon Dioxide 23, Anion Gap 12.4, BUN 10 D, Creatinine 0.90, Estimated Creat Clear 70, Estimated GFR 63, Est GFR ( Amer) 77, Glucose 106 H, Calcium 8.4, Magnesium 1.9 D, Iron 50, TIBC 192 L, Iron Saturation 26.38766, Ferritin 172, Vitamin B12 429, TSH 2.65 09/03/25 06:11: POC Glucose 89 09/03/25 12:18: POC Glucose 90 I & O for Last 24 hours: Intake & Output 08/31/25 09/01/25 09/02/25 09/03/25 23:59 23:59 23:59 23:59 Intake Total 1050 / 1050 1860 / 1860 Output Total 0 / 0 Balance 1050 / 1050 1860 / 1860 Weight 75.795 kg 75.795 kg Microbiology Reports for the Last 24 Hours: Microbiology 09/02/25 19:28 Urine,Clean Catch Urine Culture - Preliminary Constitutional Constitutional: no acute distress *Routine HEENT Exam Head: Present normocephalic Eye: Present EOMI and PERRL ENT: Present mucous membranes moist *Routine Neck Exam Neck: Present supple; Absent lymphadenopathy *Routine Respiratory Exam Respiratory: Present CTA bilaterally *Routine Cardiovascular Exam Cardiovascular: Present RRR *Routine Abdominal Exam Abdominal: Present soft, normoactive bowel sounds and tenderness Comments: Mild right upper quadrant tenderness. *Routine Extremities Exam Extremities: Absent cyanosis, clubbing or edema *Routine Skin Exam Skin: Present warm; Absent rash *Routine Neurological Exam Neurological: Present alert and oriented X3 Assessment and Plan *Assessment and plan (1) UTI (urinary tract infection): Status: Acute Qualifiers: Urinary tract infection type: acute cystitis Hematuria presence: without hematuria Qualified Code(s): N30.00 - Acute cystitis without hematuria Category: Medical Code(s): N39.0 - Urinary tract infection, site not specified (2) Unintentional weight loss: Status: Acute Category: Medical Code(s): R63.4 - Abnormal weight loss (3) Malrotation of small intestine: Status: Acute Category: Medical Code(s): Q43.3 - Congenital malformations of intestinal fixation Plan Lilia Presley is a 60-year-old female who presents with nausea/vomiting and intermittent diarrhea for 3 weeks, unintentional 18 pound weight loss over the p ast 6 weeks. She was admitted for intractable nausea/vomiting in the setting of UTI, and concerning proximal small bowel malrotation, duodenitis versus PUD. #Intractable nausea/vomiting #Proximal small bowel malrotation #Duodenitis versus PUD #Abdominal pain #Unintentional weight loss ? Presented with 3-week onset of poor oral tolerance, nausea/vomiting, intermittent diarrhea. Unintentional 18 pound weight loss over the last 6 weeks. ? CT abdomen/pelvis on 09/02/2025 revealed duodenitis versus PUD, and proximal small bowel rotation without volvulus. UA also suggestive of UTI. ? Today, patient continues to have poor oral tolerance, and abdominal pain in spite of treatment for UTI. ? GI consulted, planning for EGD in the morning. N.p.o. at midnight. ? Continue IV Protonix 40 mg nightly. Start Carafate with meals. #UTI ? UA grossly abnormal in the setting of nausea/vomiting. Urine culture pending. ? Continue IV ceftriaxone 1 g daily. WBC improved from 18-15 today., Though could be reactive in the setting of nausea/vomiting ? Follow-up urine, blood cultures. #Hypothyroidism ? Continue home levothyroxine 88 mcg. Full code DVT prophylaxis: SCDs
[2025-09-03] MEDS: SUCRALFATE 1GM TABLET 1 GM PO ×2 (16:57→21:16)
[2025-09-03] MEDS: ONDANSETRON 4MG/2ML VIAL 4 MG IV (17:02)
[2025-09-03 17:07] LABS: POC Glucose,Bedside 171 gm/dL (70-110)
--- NOTE | 2025-09-03 18:47 | PC.WOUNDNOTE ---
Assumed care of patient at 1600. She has reported nausea and a headache this afternoon. Zofran and tylenol administered per mar with her stating relief of both on reassessment. She states appetite is poor. Glucose was 171 at afternoon check. She currently has no questions or concerns at this time. Bed is locked and in lowest position, call light within reach.
[2025-09-03 20:00] VITALS: BP 100/60; PULSE 63; RESP 16; TEMP 36.7; O2SAT 93
[2025-09-03] MEDS: PANTOPRAZOLE 40MG VIAL 40 MG IV (21:16)
[2025-09-03] MEDS: TRAZODONE 50MG TABLET 50 MG PO (21:16)
[2025-09-03] MEDS: SODIUM CHLORIDE 0.9% 10ML VIAL 10 ML IV (21:16)
[2025-09-03 21:28] LABS: POC Glucose,Bedside 101 gm/dL (70-110)
[2025-09-04] MEDS: 0.9 % SODIUM CHLORIDE 1000ML 1,000 ML 75 ML IV (03:12)
[2025-09-04 04:00] VITALS: BP 115/70; PULSE 71; RESP 16; TEMP 36.9; O2SAT 97; BMI 27.6
[2025-09-04] MEDS: ACETAMINOPHEN 325MG TAB 650 MG PO (05:57)
[2025-09-04] MEDS: SUCRALFATE 1GM TABLET 1 GM PO ×3 (06:03→16:17)
[2025-09-04] MEDS: LEVOTHYROXINE 88MCG (0.088MG) TAB 88 MCG PO (06:03)
[2025-09-04 06:14] LABS: Hematocrit 35.2 % (37.0-47.0); Hemoglobin 11.4 g/dL (12.2-16.2); Immature Granulocytes % 0.7 %; Mean Corpuscular HGB Conc 32.4 g/dL (31.8-35.4); Mean Corpuscular Hemoglobin 26.1 pg (27.0-31.2); Mean Corpuscular Volume 80.7 fl (81-99); Nucleated Red Blood Cells % 0 %; Platelet Count 236 K/mm3 (142-424); Red Blood Count 4.36 M/mm3 (4.20-5.40); Red Cell Distribution Width-SD 44.2 fL; White Blood Count 10.6 K/mm3 (4.8-10.8)
[2025-09-04 06:15] LABS: POC Glucose,Bedside 81 gm/dL (70-110)
[2025-09-04 06:26] LABS: Alanine Aminotransferase 16 U/L (12-78); Albumin Level 2.7 g/dl (3.5-5.0); Albumin/Globulin Ratio 0.7 (1.1-1.8); Alkaline Phosphatase 93 U/L (38-126); Anion Gap 11.4 mEq/L (5-15); Aspartate Amino Transferase 27 U/L (14-36); Bilirubin,Total 0.5 mg/dl (0.2-1.3); Blood Urea Nitrogen 6 mg/dl (7-17); Calcium 8.0 mg/dl (8.4-10.2); Carbon Dioxide 23 mmol/L (22.0-30.0); Chloride 107 mmol/L (98-107); Creatinine Clearance Estimated 72 mL/min (50-200); Creatinine,Serum 1.00 mg/dl (0.52-1.04); Estimated Glomerular Filt Rate 56 ml/min (>60); GFR (African American) 68 ML/MIN (>60); Globulin 3.8 g/dL (1.3-3.2); Glucose 100 mg/dl (74-100); Magnesium 1.7 mg/dl (1.6-2.3); Potassium 3.4 mmoL/L (3.5-5.1); Sodium 138 mmol/L (136-145); Total Protein,Serum 6.5 g/dl (6.3-8.2)
--- NOTE | 2025-09-04 06:45 | EXP.HP ---
History of Present Illness *Admission Date: 09/02/25 *History of present illness: This is a 60-year-old female who who underwent inpatient lap ellie in April. She returned to the ER after 3 weeks of nausea and vomiting multiple times a day. The patient denies heartburn or reflux. She denies medication change or diet change. She does report a loss of appetite and an 18 pound weight loss in the past 2 weeks. Patient became acutely dehydrated. She stopped urinating and presented to the ER. She is elevated white blood cell count of 18.8. She was inpatient for acute dehydration has received IV fluids and nausea medication. Patient has not had any vomiting today. 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 She did have evidence of acute duodenitis versus peptic ulcer disease with some mild surrounding edema. She denies any NSAID use. She denies any alcohol. No melena or hematochezia in her stool. She denies any bowel habit changes. She denies bloating belching or gassiness. She does report she has had some mucus in her stool in the past few days. She is a non-smoker. She is mildly tender to palpation epigastric area she believes from all the vomiting making her sore. She has not had an EGD. She does feel significantly better after rehydration with IV fluids and nausea medicine. She has not had any vomiting today. She was mildly anemic after rehydration but iron levels were normal. She denies melena or hematochezia. LFTs within normal limits. She denies exposure to other people with similar symptoms. She denies diarrhea. No family history of colon cancer or other GI cancers, IBD or celiac disease. [facility] Disclaimer: The information contained in this section may have been updated after the patient was seen, as this information can be updated by other users. Medical History Depression Anxiety Hyperlipidemia Hypertension Hypothyroidism Concussion Fracture of lumbar spine Surgical History delivery delivered H/O thyroidectomy History of facial surgery Family History Other Family history of diabetes mellitus Family history of heart disease Social History Smoking Status: Never smoker alcohol intake: never substance use type: denies use current occupational status: retired Travel in the last 8 weeks?: None household members: spouse housing: house caffeine: Yes Have you lived/traveled outside [place] in past 30 days?: No Contact w/someone who lives/traveled outside [place] past 30 days?: No Exposure to someone with infectious disease in past 14 days?: No Do you have a fever (greater than 100.4 F or 38 C)?: No Have you tested positive for COVID-19?: No Exposed to someone with COVID-19 in past 14 days?: No Do you have a sore throat?: No Do you have a cough?: No Do you have any weakness?: No Are you experiencing any nausea/vomitting?: Yes Do you have any diarrhea?: No Are you experiencing any unusual bleeding?: No Do you have any muscle aches/pain?: No Do you have any abdominal pain?: Yes Are you experiencing loss of taste or smell?: No Other Medical History Have you received the Flu Vaccine for this season: No Have you received the Pneumonia Vaccine: No Review of Systems Review of Systems Review of systems (narrative): Negative *Cardiovascular Comments: Negative *Gastrointestinal Comments: Negative *Genitourinary Comments: Negative *Musculoskeletal Comments: Negative *Neurologic Neurologic: Reports system reviewed and no additional complaints, except as documented Comments: Negative Meds Home Medications and Allergies Home Medications ?Medication ?Instructions ?Recorded ?Confirmed ?Type alendronate 70 mg tablet 70 mg PO WEEKLY 04/11/25 09/02/25 History baclofen 10 mg tablet 10 mg PO TID 04/11/25 09/02/25 History metformin 500 mg tablet,extended 500 mg PO DAILY 04/11/25 09/02/25 History release 24 hr tramadol 50 mg tablet 50 mg PO TIDP PRN Moderate Pain 04/11/25 09/03/25 History (Scale Score 5-6) atorvastatin 10 mg tablet 10 mg PO HS 04/12/25 09/02/25 History ubrogepant 100 mg tablet (Ubrelvy) 100 mg PO DAILYP PRN migraine 04/12/25 09/02/25 History headache aspirin 81 mg tablet 81 mg PO DAILY 09/02/25 09/02/25 History trazodone 100 mg tablet 100 mg PO HS 09/02/25 09/03/25 History levothyroxine 88 mcg tablet 88 mcg PO DAILY 09/03/25 09/03/25 History lisinopril 2.5 mg tablet 2.5 mg PO DAILY 09/03/25 09/03/25 History New Prescriptions to Start Prescriptions: Allergies Allergy/AdvReac Type Severity Reaction Status Date / Time sumatriptan (From IMITREX) Allergy Severe S-DROP IN Verified 01/01/25 09:50 B/P Penicillins (PENICILLINS) Allergy Intermediate I-HIVES Verified 01/01/25 09:50 topiramate (From Topamax) Allergy Intermediate S-DROP IN Verified 01/01/25 09:50 B/P Exam Data for Last 24 hours Vital signs and Labs for Last 24 Hours: Temp Pulse Resp BP Pulse Ox O2 Del Method 98.5 F 71 16 115/70 97 Room Air 09/04/25 04:00 09/04/25 04:00 09/04/25 04:00 09/04/25 04:00 09/04/25 04:00 09/04/25 05:00 Laboratory Results - last 24 hr 09/02/25 19:28: Urine Color Yellow, Urine Appearance Clear, Urine pH 7.0, Ur Specific Nickerson <= 1.005, Urine Protein 1+ A, Urine Glucose (UA) Negative, Urine Ketones 2+, Urine Blood 1+ A, Urine Nitrate Negative, Urine Bilirubin 1+ A, Urine Urobilinogen 1.0, Ur Leukocyte Esterase 2+ A, Urine WBC Tntc, Urine Bacteria 1+ 09/03/25 05:15: Magnesium 1.9 D, Iron 50, TIBC 192 L, Iron Saturation 26.87125, Ferritin 172, Vitamin B12 429, TSH 2.65 09/03/25 12:18: POC Glucose 90 09/03/25 16:58: POC Glucose 171 H 09/03/25 21:21: POC Glucose 101 09/04/25 05:31: Sodium 138, Potassium 3.4 L, Chloride 107, Carbon Dioxide 23, Anion Gap 11.4, BUN 6 L D, Creatinine 1.00, Estimated Creat Clear 72, Estimated GFR 56 L, Est GFR ( Amer) 68, Glucose 100, Calcium 8.0 L, Magnesium 1.7 D, Total Bilirubin 0.5, AST 27, ALT 16, Alkaline Phosphatase 93, Total Protein 6.5, Albumin 2.7 L, Globulin 3.8 H, Albumin/Globulin Ratio 0.7 L 09/04/25 06:06: POC Glucose 81 I & O for Last 24 hours: Intake & Output 09/01/25 09/02/25 09/03/25 09/04/25 23:59 23:59 23:59 23:59 Intake Total 1050 / 1050 2029 / 2210 1180 / 1180 Output Total 0 / 0 0 / 0 Balance 1050 / 1050 2029 / 2210 1180 / 1180 Weight 167 lb 1.6 oz 167 lb 1.59 oz 171 lb 9.6 oz Microbiology Reports for the Last 24 Hours: Microbiology 09/02/25 19:28 Urine,Clean Catch Urine Culture - Preliminary *Routine HEENT Exam Head: Present normocephalic Eye: Present EOMI and PERRL ENT: Present mucous membranes moist *Routine Neck Exam Neck: Present supple *Routine Respiratory Exam Respiratory: Present CTA bilaterally *Routine Cardiovascular Exam Cardiovascular: Present RRR *Routine Abdominal Exam Abdominal: Present soft and normoactive bowel sounds; Absent tenderness *Routine Rectal Exam Rectal:: deferred *Routine Genitalia Exam Genitalia:: deferred *Routine Extremities Exam Extremities: Absent cyanosis, clubbing or edema *Routine Skin Exam Skin: Present warm; Absent rash *Routine Neurological Exam Neurological: Present alert and oriented X3 Assessment and Plan *Assessment and plan (1) Abnormal CT of the abdomen: Status: Acute Category: Medical Code(s): R93.5 - Abnormal findings on diagnostic imaging of other abdominal regions, including retroperitoneum (2) Malrotation of small intestine: Status: Acute Category: Medical Code(s): Q43.3 - Congenital malformations of intestinal fixation (3) Abdominal pain: Status: Acute Qualifiers: Abdominal location: generalized Qualified Code(s): R10.84 - Generalized abdominal pain Category: Medical Code(s): R10.9 - Unspecified abdominal pain (4) Nausea & vomiting: Status: Acute Qualifiers: Vomiting type: unspecified Qualified Code(s): R11.2 - Nausea with vomiting, unspecified Category: Medical Code(s): R11.2 - Nausea with vomiting, unspecified (5) Unintentional weight loss: Status: Acute Category: Medical Code(s): R63.4 - Abnormal weight loss Plan A/P: 1. Loss of appetite, weight loss and initial nausea and epigastric pain. CAT scan showed malrotation with evidence of acute duodenitis versus peptic duodenal ulcer is the preprocedural diagnosis. The patient will be anesthetized/sedated using MAC sedation. The patient has been seen and examined. Cardiac and lung assessment prior to the examination is stable. Proceed with planned diagnostic EGD.
[2025-09-04 08:00] VITALS: BP 100/64; PULSE 65; RESP 16; TEMP 36.6; O2SAT 93
[2025-09-04] MEDS: POTASSIUM CHLORIDE 20MEQ TAB 40 MEQ PO ×2 (08:06→10:20)
[2025-09-04] MEDS: ASPIRIN EC 81MG TABLET 81 MG PO (08:06)
[2025-09-04] MEDS: MAGNESIUM SULFATE IN WATER 2 GM/50 ML PIGGYBACK IV ×2 (08:07→09:11)
[2025-09-04] MEDS: ONDANSETRON 4MG/2ML VIAL 4 MG IV (08:10)
[2025-09-04] MEDS: FUROSEMIDE 40MG/4ML VIAL 40 MG IV (10:20)
[2025-09-04 10:33] LABS: POC Glucose,Bedside 83 gm/dL (70-110)
--- NOTE | 2025-09-04 14:44 | EXP.ANES.CKL ---
[facility] Disclaimer: The information contained in this section may have been updated after the patient was seen, as this information can be updated by other users. Medical History Depression Anxiety Hyperlipidemia Hypertension Hypothyroidism Concussion Fracture of lumbar spine Surgical History delivery delivered H/O thyroidectomy History of facial surgery Family History Other Family history of diabetes mellitus Family history of heart disease Social History Smoking Status: Never smoker alcohol intake: never substance use type: denies use current occupational status: retired Travel in the last 8 weeks?: None household members: spouse housing: house caffeine: Yes Have you lived/traveled outside [place] in past 30 days?: No Contact w/someone who lives/traveled outside [place] past 30 days?: No Exposure to someone with infectious disease in past 14 days?: No Do you have a fever (greater than 100.4 F or 38 C)?: No Have you tested positive for COVID-19?: No Exposed to someone with COVID-19 in past 14 days?: No Do you have a sore throat?: No Do you have a cough?: No Do you have any weakness?: No Are you experiencing any nausea/vomitting?: Yes Do you have any diarrhea?: No Are you experiencing any unusual bleeding?: No Do you have any muscle aches/pain?: No Do you have any abdominal pain?: Yes Are you experiencing loss of taste or smell?: No [facility] Anesthesia Checklist Patient Identification Patient Identification: Arm Band Structural Data Admitted From: Home Planned Operative Procedure/s: EGD Consent for Planned Operative Procedure(s) Verified: Yes Verified Documents: Surgical Consent and History and Physical NPO Status Verified Time NPO: 00:00 Additional verifications Anesthesia Reactions: No Hx Blood Transfusions: No Blood Transfusion Reaction: No Airway Assessment Mallampati Score:: Class II C-Spine Mobility Assessed: Yes TMJ Mobility Assessed: Yes Dentition: Edentulous Neurological Assessment Level of Consciousness: Awake, Alert and Appropriate Anesthesia Plan Anesthesia Risk discussed: Yes Anesthesia Plan: Verified ASA Class: II Anesthesia Type: MAC
--- NOTE | 2025-09-04 14:59 | HMH.PROCNOTE ---
[facility] Procedure Note Date: 09/04/25 Time: 15:18 Procedure Note:: Upper Endoscopy Procedure Report: Esophagogastroduodenoscopy with cold biopsies Endoscopost: Vijay Flores II, MD Referring Physician: Sobeida Richmond PA-C Date of Procedure: September 04, 2025 Equipment: Olympus GIF-1100 standard upper endoscope Sedation: MAC sedation Indications: Mrs. Presley is a 60-year-old inpatient female who is here for diagnostic EGD. The patient had presented with symptoms of nausea, vomiting and some generalized abdominal pain and discomfort. She also has had diarrhea. She reports no gassiness or bloating. She does report a little heartburn. Her symptoms have been going on for about 3 weeks. 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 There was also evidence of duodenitis versus duodenal ulcer with some mild surrounding duodenal edema. She reports no NSAID usage. The patient has improved with rehydration and antiemetics. The patient does have borderline anemia with hemoglobin 11.4, hematocrit 35.2 and microcytic indices (MCV 80.7). The patient serum ferritin was 172 and iron saturation is 26%. Procedure: Prior to the procedure, a history and physical exam was performed, and patient's medications and allergies were reviewed. The risks, benefits and alternatives of the sedation and procedure were discussed with the patient. All questions were answered and informed consent was obtained. The patient was brought to the procedure room. Patient identification and proposed procedure were verified by the physician and the nurse. The patient was placed in a left lateral decubitus position and the scope was passed under direct vision. Throughout the procedure, the patient's blood pressure, pulse, and oxygen saturations were monitored continuously. The upper GI endoscopy was accomplished without difficulty. The patient tolerated the procedure well. Findings: The scope was passed directly into the upper esophagus and advanced to the third portion of the duodenum. The post bulbar duodenum was normal with normal ampulla. Within the duodenal bulb at junction of the duodenal bulb and first portion along the medial wall was a duodenal ulcer (12 mm) with no visible vessel. There was a more shallow ulcer along the lateral wall contralateral to the slightly deeper ulcer. The ulcers had regular margins with no stigmata. The scope was withdrawn to a normal pylorus and of the stomach. There was moderate linear antral gastropathy. The body and fundus were normal with no evidence of chronic gastritis. Upon retroflexion there was a very small sliding 1 to 2 cm hiatal hernia. Cold biopsies were taken from the antrum and lesser curvature to rule out H. pylori. The scope was then withdrawn into the esophagus. There was no evidence of reflux esophagitis and the remainder of the esophageal mucosa was normal. Impression: 1. Duodenal ulcer (12 mm medial wall of duodenal bulb/first portion) and more shallow superficial duodenal ulcer ipsilateral wall of bulb 2. Moderate antral gastropathy Plan: I will follow-up the biopsies to rule out H. pylori. The 2 largest risk factors are NSAIDs and H. pylori for duodenal ulcers and the patient does not appear to be taking NSAIDs. I would recommend switching to oral omeprazole 40 mg by mouth twice daily. This ulcer was clean-based without stigmata and the patient has had no signs of bleeding or perforation.
[2025-09-04 15:20] VITALS: BP 89/64; PULSE 84; RESP 18; O2SAT 96
[2025-09-04 15:30] VITALS: BP 90/64; PULSE 87; RESP 18; O2SAT 96
--- NOTE | 2025-09-04 15:33 | EXP.DC.SUM ---
General Admission date:: 09/02/25 HPI HPI HPI: This is a 60-year-old female who who underwent inpatient lap ellie in April. She returned to the ER after 3 weeks of nausea and vomiting multiple times a day. The patient denies heartburn or reflux. She denies medication change or diet change. She does report a loss of appetite and an 18 pound weight loss in the past 2 weeks. Patient became acutely dehydrated. She stopped urinating and presented to the ER. She is elevated white blood cell count of 18.8. She was inpatient for acute dehydration has received IV fluids and nausea medication. Patient has not had any vomiting today. 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 She did have evidence of acute duodenitis versus peptic ulcer disease with some mild surrounding edema. She denies any NSAID use. She denies any alcohol. No melena or hematochezia in her stool. She denies any bowel habit changes. She denies bloating belching or gassiness. She does report she has had some mucus in her stool in the past few days. She is a non-smoker. She is mildly tender to palpation epigastric area she believes from all the vomiting making her sore. She has not had an EGD. She does feel significantly better after rehydration with IV fluids and nausea medicine. She has not had any vomiting today. She was mildly anemic after rehydration but iron levels were normal. She denies melena or hematochezia. LFTs within normal limits. She denies exposure to other people with similar symptoms. She denies diarrhea. No family history of colon cancer or other GI cancers, IBD or celiac disease. Hospital Course Hospital Course Hospital Course: Lilia Presley is a 60-year-old female who presents with nausea/vomiting and intermittent diarrhea for 3 weeks, unintentional 18 pound weight loss over the past 6 weeks. She was admitted for intractable nausea/vomiting in the setting of UTI, and concerning proximal small bowel malrotation, duodenitis versus PUD. #Intractable nausea/vomiting, resolved #Duodenal ulcer #Proximal small bowel malrotation #Unintentional weight loss ? Presented with 3-week onset of poor oral tolerance, nausea/vomiting, intermittent diarrhea. Unintentional 18 pound weight loss over the last 6 weeks. ? CT abdomen/pelvis on 09/02/2025 revealed duodenitis versus PUD, and proximal small bowel rotation without volvulus. UA also suggestive of UTI. ? Symptoms improved after starting IV Protonix, patient tolerating p.o. intake appropriately. Right upper quadrant pain also improved. ? GI consulted, s/p EGD on 09/04/2025 revealing Duodenal ulcer (12 mm medial wall of duodenal bulb/first portion) and more shallow superficial duodenal ulcer ipsilateral wall of bulb, Moderate antral gastropathy. ? GI recommended omeprazole 40 mg twice daily, will follow-up on H. pylori biopsies. Patient does not take NSAIDs, use alcohol, but does seem to be a chronic worrier. ? Recommend decreasing omeprazole dose to 40 mg daily after 30 days upon follow-up with PCP. ? Will follow-up with GI, PCP within 2 weeks. #UTI ? UA grossly abnormal in the setting of nausea/vomiting. Urine culture pending. ? Treated with IV ceftriaxone, transitioned to cefdinir 300 mg twice daily for 3 more days. #Hypothyroidism ? Continue home levothyroxine 88 mcg. TSH normal. Exam Data for Last 24 hours Vital signs and Labs for Last 24 Hours: Temp Pulse Resp BP Pulse Ox O2 Del Method 97.9 F 65 16 100/64 L 93 L Room Air 09/04/25 08:00 09/04/25 08:00 09/04/25 08:00 09/04/25 08:00 09/04/25 08:00 09/04/25 10:07 Laboratory Results - last 24 hr 09/03/25 16:58: POC Glucose 171 H 09/03/25 21:21: POC Glucose 101 09/04/25 05:31: WBC 10.6 D, RBC 4.36, Hgb 11.4 L, Hct 35.2 L, MCV 80.7 L, MCH 26.1 L, MCHC 32.4, RDW 15.2, Plt Count 236, MPV 9.2, Neut % (Auto) 81.1 H, Lymph % (Auto) 11.5, [place] % (Auto) 5.2, Eos % (Auto) 1.3, Baso % (Auto) 0.2, Neut # (Auto) 8.6 H, Lymph # (Auto) 1.2, [place] # (Auto) 0.6, Eos # (Auto) 0.1, Baso # (Auto) 0.0, Sodium 138, Potassium 3.4 L, Chloride 107, Carbon Dioxide 23, Anion Gap 11.4, BUN 6 L D, Creatinine 1.00, Estimated Creat Clear 72, Estimated GFR 56 L, Est GFR ( Amer) 68, Glucose 100, Calcium 8.0 L, Magnesium 1.7 D, Total Bilirubin 0.5, AST 27, ALT 16, Alkaline Phosphatase 93, Total Protein 6.5, Albumin 2.7 L, Globulin 3.8 H, Albumin/Globulin Ratio 0.7 L 09/04/25 06:06: POC Glucose 81 09/04/25 10:24: POC Glucose 83 I & O for Last 24 hours: Intake & Output 09/01/25 09/02/25 09/03/25 09/04/25 23:59 23:59 23:59 23:59 Intake Total 1050 / 1050 2029 / 2210 1853.75 / 1853.75 Output Total 0 / 0 0 / 0 Balance 1050 / 1050 2029 / 2210 1853.75 / 1853.75 Weight 75.795 kg 75.795 kg 77.836 kg Microbiology Reports for the Last 24 Hours: Microbiology 09/02/25 19:28 Urine,Clean Catch Urine Culture - Preliminary Constitutional Constitutional: no acute distress and chronically ill appearing *Routine HEENT Exam Head: Present normocephalic Eye: Present EOMI and PERRL ENT: Present mucous membranes moist *Routine Neck Exam Neck: Present supple; Absent lymphadenopathy *Routine Respiratory Exam Respiratory: Present CTA bilaterally *Routine Cardiovascular Exam Cardiovascular: Present RRR *Routine Abdominal Exam Abdominal: Present soft and normoactive bowel sounds; Absent tenderness *Routine Extremities Exam Extremities: Absent cyanosis, clubbing or edema *Routine Skin Exam Skin: Present warm; Absent rash *Routine Neurological Exam Neurological: Present alert and oriented X3 Results Data Completed and Pending Labs on day of discharge: Labs from last 24 hours 09/04/25 09/04/25 09/04/25 10:24 06:06 05:31 WBC 10.6 D RBC 4.36 Hgb 11.4 L Hct 35.2 L MCV 80.7 L MCH 26.1 L MCHC 32.4 RDW 15.2 Plt Count 236 MPV 9.2 Neut % (Auto) 81.1 H Lymph % (Auto) 11.5 [place] % (Auto) 5.2 Eos % (Auto) 1.3 Baso % (Auto) 0.2 Neut # (Auto) 8.6 H Lymph # (Auto) 1.2 [place] # (Auto) 0.6 Eos # (Auto) 0.1 Baso # (Auto) 0.0 Sodium 138 Potassium 3.4 L Chloride 107 Carbon Dioxide 23 Anion Gap 11.4 BUN 6 L D Creatinine 1.00 Estimated Creat Clear 72 Estimated GFR 56 L Est GFR ( Amer) 68 Glucose 100 POC Glucose 83 81 Calcium 8.0 L Magnesium 1.7 D Total Bilirubin 0.5 AST 27 ALT 16 Alkaline Phosphatase 93 Total Protein 6.5 Albumin 2.7 L Globulin 3.8 H Albumin/Globulin Ratio 0.7 L 09/03/25 09/03/25 21:21 16:58 WBC RBC Hgb Hct MCV MCH MCHC RDW Plt Count MPV Neut % (Auto) Lymph % (Auto) [place] % (Auto) Eos % (Auto) Baso % (Auto) Neut # (Auto) Lymph # (Auto) [place] # (Auto) Eos # (Auto) Baso # (Auto) Sodium Potassium Chloride Carbon Dioxide Anion Gap BUN Creatinine Estimated Creat Clear Estimated GFR Est GFR ( Amer) Glucose POC Glucose 101 171 H Calcium Magnesium Total Bilirubin AST ALT Alkaline Phosphatase Total Protein Albumin Globulin Albumin/Globulin Ratio Preliminary micro results at discharge 09/02/25 19:28 Urine Culture - Preliminary Urine,Clean Catch DS: Diagnosis Discharge Diagnosis (1) Abnormal CT of the abdomen: Status: Acute Code(s): R93.5 - Abnormal findings on diagnostic imaging of other abdominal regions, including retroperitoneum (2) Malrotation of small intestine: Status: Acute Code(s): Q43.3 - Congenital malformations of intestinal fixation (3) Abdominal pain: Status: Acute Code(s): R10.9 - Unspecified abdominal pain Qualifiers: Abdominal location: generalized Qualified Code(s): R10.84 - Generalized abdominal pain (4) Nausea & vomiting: Status: Acute Code(s): R11.2 - Nausea with vomiting, unspecified Qualifiers: Vomiting type: unspecified Qualified Code(s): R11.2 - Nausea with vomiting, unspecified (5) Unintentional weight loss: Status: Acute Code(s): R63.4 - Abnormal weight loss Meds Home Medications and Allergies Home Medications ?Medication ?Instructions ?Recorded ?Confirmed ?Type alendronate 70 mg tablet 70 mg PO WEEKLY 04/11/25 09/02/25 History baclofen 10 mg tablet 10 mg PO TID 04/11/25 09/02/25 History metformin 500 mg tablet,extended 500 mg PO DAILY 04/11/25 09/02/25 History release 24 hr tramadol 50 mg tablet 50 mg PO TIDP PRN Moderate Pain 04/11/25 09/03/25 History (Scale Score 5-6) atorvastatin 10 mg tablet 10 mg PO HS 04/12/25 09/02/25 History ubrogepant 100 mg tablet (Ubrelvy) 100 mg PO DAILYP PRN migraine 04/12/25 09/02/25 History headache aspirin 81 mg tablet 81 mg PO DAILY 09/02/25 09/02/25 History trazodone 100 mg tablet 100 mg PO HS 09/02/25 09/03/25 History levothyroxine 88 mcg tablet 88 mcg PO DAILY 09/03/25 09/03/25 History lisinopril 2.5 mg tablet 2.5 mg PO DAILY 09/03/25 09/03/25 History cefdinir 300 mg capsule 300 mg PO BID 3 days #6 caps 09/04/25 Rx omeprazole 40 mg capsule,delayed 40 mg PO BID 30 days #60 caps 09/04/25 Rx release New Prescriptions to Start Prescriptions: cefdinir Guilherme Ontiveros omeprazole Guilherme Ontiveros Allergies Allergy/AdvReac Type Severity Reaction Status Date / Time sumatriptan (From IMITREX) Allergy Severe S-DROP IN Verified 01/01/25 09:50 B/P Penicillins (PENICILLINS) Allergy Intermediate I-HIVES Verified 01/01/25 09:50 topiramate (From Topamax) Allergy Intermediate S-DROP IN Verified 01/01/25 09:50 B/P Discharge Plan Disposition Patient Disposition: Home, Self-Care Condition: Fair Follow up Plan Follow up with: Sobeida Richmond PA [Primary Care Provider, Medical] - 09/10/25 3:30 pm Vijay Flores II, MD [Staff Physician, Gastroenterology] - 10/09/25 9:00 am Referral Note: PUD, decreased appetite, 18 pound weight loss over 1 month Prescriptions/Medication Reconciliation: New omeprazole 40 mg capsule,delayed release(DR/EC) 40 mg PO BID 30 Days Qty: 60 0RF cefdinir 300 mg capsule 300 mg PO BID 3 Days Qty: 6 0RF Continued trazodone 100 mg Tablet 100 mg PO HS aspirin 81 mg Tablet 81 mg PO DAILY levothyroxine 88 mcg tablet 88 mcg PO DAILY lisinopril 2.5 mg tablet 2.5 mg PO DAILY alendronate 70 mg tablet 70 mg PO WEEKLY tramadol 50 mg tablet 50 mg PO TIDP PRN (Reason: Moderate Pain (Scale Score 5-6)) baclofen 10 mg tablet 10 mg PO TID metformin 500 mg tablet extended release 24 hr 500 mg PO DAILY atorvastatin 10 mg tablet 10 mg PO HS Ubrelvy 100 mg tablet 100 mg PO DAILYP PRN (Reason: migraine headache) Problem Reconciliation Problems Reviewed?: Yes Patient Discharge Instructions Patient Instructions: Urinary Tract Infection, Nausea and Vomiting in Adults, Stop Light Infection Print Language: Iranian Providers Primary Care Provider: Sobeida Richmond Admit Provider: Charles Bee Attending Provider: Charles Bee
[2025-09-04 15:45] VITALS: BP 103/65; PULSE 78; RESP 18; O2SAT 97
[2025-09-04 15:55] VITALS: BP 109/72; PULSE 71; RESP 18; TEMP 36.8; O2SAT 99
--- NOTE | 2025-09-04 16:18 | PC.NURSE ---
Pt. doesn't wish to have more vitals at this time. States she will call out if she needs any assistance.
[2025-09-04 16:27] LABS: POC Glucose,Bedside 83 gm/dL (70-110)
--- NOTE | 2025-09-05 10:36 | SW/DCPLANNER ---
Spoke with patient on the phone. Patient stated that she is good. Patient stated that she is aware of her upcoming appointments. Patient stated that she was able to get her medicine picked up from [facility] pharmacy. Patient stated that she has no concerns or questions at this time. Josias Hilton
[2025-09-05 11:28] LABS: POC Glucose,Bedside 84 gm/dL (70-110)
== END 2025-09-04 18:30 | disposition home or self-care (01) ==
LOC: ER 20:38 → 2ND 20:40
PROVIDERS: Internal Medicine Gastroenterology; Nurse Practitioner Acute Care; Student in an Organized Health Care Education/Training Program; Admitting Provider Family Medicine; Emergency Provider Student in an Organized Health Care Education/Training Program; PCP Physician Assistant; Visit Provider Family Medicine
PROC: 0DJ08ZZ Inspection of Upper Intestinal Tract, Via Natural or Artificial Opening Endoscopic (ICD-10-PCS; principal; 2025-09-04 15:30)
DX: N30.00 Acute cystitis without hematuria (principal); K31.89 Other diseases of stomach and duodenum; E86.0 Dehydration; R63.4 Abnormal weight loss; K26.9 Duodenal ulcer, unspecified as acute or chronic, without hemorrhage or perforation; K44.9 Diaphragmatic hernia without obstruction or gangrene; D72.829 Elevated white blood cell count, unspecified; Q43.3 Congenital malformations of intestinal fixation; I10 Essential (primary) hypertension; E83.42 Hypomagnesemia; E89.0 Postprocedural hypothyroidism; F41.8 Other specified anxiety disorders; E78.019 Familial hypercholesterolemia, unspecified; G43.909 Migraine, unspecified, not intractable, without status migrainosus; R91.1 Solitary pulmonary nodule; N20.0 Calculus of kidney; M85.80 Other specified disorders of bone density and structure, unspecified site; Z90.49 Acquired absence of other specified parts of digestive tract; Z88.0 Allergy status to penicillin; Z68.27 Body mass index [BMI] 27.0-27.9, adult; Z88.8 Allergy status to other drugs, medicaments and biological substances; Z79.890 Hormone replacement therapy; Z79.899 Other long term (current) drug therapy; Z79.82 Long term (current) use of aspirin; Z79.84 Long term (current) use of oral hypoglycemic drugs
CPT/HCPCS: 43239; 36415; 74177; 80048; 80053; 81001; 82607; 82728; 82962; 83540; 83550; 83605; 83690; 83735; 84100; 84443; 85025; 87086; 87088; 88305; 96361; 96365; 96375; 96376; 99285; G0378; J0696; J0780; J1200; J1650; J1938; J2003; J2405; J2470; J2704; J3475; J7030; J7120; Q9967

== ENCOUNTER 2025-10-23 21:06 | Emergency (ER) | payer MEDICARE, SELFPAY ==
--- OUTSIDE RECORDS SUMMARY | 2025-09-19 17:55 | XMS_ITS | Encounter Summary ---
Author Organization [facility] Address [address] [place] [address] Care Team Providers Care Certified Medical Transcriptionist Name Role Phone Santosh Phipps MD Primary Care Provider [phone] Reason for Referral * Consultation (Routine) - Closed Specialty Diagnoses / Procedures Referred By Alisha benjamin Referred To Contact Gastroenterology Diagnoses Nausea and vomiting, unspecified vomiting type Procedures TX OFFICE/OUTPATIENT NEW MODERATE MDM 45 MINUTES Jennifer Hagan PA-C [address] [place], [place] [id number] Phone: tel: fax: [facility] [address] [facility] [address] [place] [address] Phone: tel: fax: Referral ID Status Reason Start Date Expiration Date V isits Requested Visits Authorized [id number] Closed Specialty Services Required 09/19/2025 12/19/2026 1 1 Reason for Visit * Reason Comments Abdominal Pain Encounter Details Date Type Department Care Team (Late st Contact Info) Description 09/19/2025 5:55 PM EST - 09/19/2025 10:48 PM EST Emergency [facility] [place] [id number] Nasir Wilson MD [address] [place] [id number] Eulogio Jamil MD [address] [place] [address] [address] [place] [address] Nausea and vomiting, unspecified vomiting type (Primary Dx) Discharge Disposition: Home or Self Care Social History Tobacco Use Types Packs/Day Years Used Date Smoking Tobacco: Never Smokeless Tobacco: Never Alcohol Use Standard Drinks/Week Comments No 0 (1 standard drink = 0.6 oz pur e alcohol) Abuse Screen Answer Date Recorded Feels Unsafe at Home or Work/School no 09/19/2025 Feels Threatened by Someone no 09/07 Does Anyone Try to Keep You From Having Contact with Others or Doing Things Outside Your Home? no 09/19/2025 Physical Signs of Abuse Present no 09/19/2025 Housing Stability Answer Date Recorded Current Living [...] Preferred Language Not on file 08/15/2023 Comments No Sex and Gender Information Value Date Recorded Sex Assigned at Not on file Legal Sex Female 10:45 AM EDT Gender Identity Not on file Sexual Orientation Not on file documented as of this encounter Last Filed Vital Signs Vital Sign Reading Time Taken Comments Blood Pressure 104/63 09/19/2025 9:30 PM EST Pulse 85 09/19/2025 10:45 PM EST Temperature 37.2 C (98.9 F) 09/19/2025 5:53 PM EST Respiratory Rate 22 09/19/2025 5:53 PM EST Oxygen Saturation 98% 09/19/2025 10:45 PM EST Inhaled Oxygen Concentration - - Weight 70.4 kg (155 lb 3.2 oz) 09/19/2025 5:53 P M EST Height 160 cm (5' 3 ) 09/19/2025 5:53 PM EST Body Mass Index 27.49 09/19/2025 5:53 PM EST documented in this encounter Functional Status * Calculated C-SSRS Risk Score (Lifetime/Recent) Answer Date of Assessment Author No Risk Indicated 09/19/2025 5:52 PM EST Ryan Smith, CRYSTAL * [place] Suicide Severity Rating Scale (Screener/Recent Self-Report) Question Answer Date of Assessment Author 1. Wish to be (Past 1 Month) No 025 5:52 PM EST Pratima mSith, CRYSTAL 2. Non-Specific Active Suici williams Thoughts (Past 1 Month) No 09/19/2025 5:52 PM EST Pratima Smith RN 6. Suicidal Behavior (Lifetime) No 5:52 PM EST Pratima Smith RN documented as of this encounter Discharge Instructions * Attachments The following attachments cannot be sent through Care Everywhere. * Nausea Adult Ednk-ny-Khgv (Central [place]) documented in this encounter Medications at Time of Discharge aspirin 81 MG EC tablet Take 1 tablet by mouth Daily. 06/20/2025 atorvastatin (LIPITOR) 40 MG tablet Take 1 tablet by mouth Every Night. Cariprazine HCl (Vraylar) 1.5 MG capsule capsule Take 1 capsule by mouth Daily. Fosamax 70 MG tablet Take 1 tablet by mouth Every 7 (Seven) Days. 04/11/2025 levothyroxine (SYNTHROID, LEVOTHROID) 150 MCG tablet Take 88 mcg by mouth Daily. lisinopril (PRINIVIL,ZESTRI L) 2.5 MG tablet Take 1 tablet by mouth Daily. 04/11/2025 meclizine 25 MG chewable tablet chewable tablet Chew 1 tablet 3 (Three) Times a Day As Needed. metFORMIN ER (GLUCOPHAGE-XR) 500 MG 24 hr tablet Take 1 tablet by mouth Daily With Breakfast. 04/11/2025 promethazine (PHENERGAN) 25 MG tablet Take 25 mg by mouth Every 6 (Six) Hours As Needed for Nausea or Vomiting. traMADol (ULTRAM) 50 MG tablet Take 1 tablet by mouth Every 6 (Six) Hours As Needed for Moderate Pain. traZODone (DESYREL) 100 MG tablet Take 1 tablet by mouth. 06/20/2025 ubrogepant (ubrogepant) 100 MG tablet Take by mouth. baclofen (LIORESAL) 10 MG tablet Take 1 tablet by mouth. 04/11/2025 09/30/2025 Butalbital-Aceta minophen (BUTALBITAL-APAP ) 50-325 MG tablet Take by mouth. 09/26/2025 cefuroxime (CEFTIN) 250 MG tablet Take 4 tablets by mouth 2 (Two) Times a Day for 7 days. 56 tablet 09/20/2025 09/26/2025 diazePAM (VALIUM) 5 MG tablet Take 5 mg by mouth 2 (Two) Times a Day As Needed for Anxiety. 09/26/2025 hydrOXYzine (ATARAX) 25 MG tablet Take 25 mg by mouth As Needed for Itching. 09/26/2025 ibuprofen (ADVIL,MOTRIN) 800 MG tablet Take 800 mg by mouth Every 6 (Six) Hours As Needed for Mild Pain (1-3). 09/26/2025 nortriptyline (PAMELOR) 10 MG capsule Take 10 mg by mouth Every Night. 09/26/2025 omeprazole (priLOSEC) 20 MG capsule Take 1 capsule by mouth Daily. 09/30/2025 documented as of this encounter Miscellaneous Notes * [facility] Provider Note - Jennifer Hagan PA-C - 09/19/2025 9:26 PM EST Images from the original note were not included. Subjective History of Present Illness: Patient is a 60-year-old female who presents emergency department complaining of nausea and vomiting for the past 3 to 4 months. Patient has lost around 40 pounds since June of this year. Patient had an admission 2 weeks ago at [facility] in [facility] in which she had an endoscopyperformed. At that time nothing acute was noted. Patient has history of diabetes, chronic pain, migraines, anxiety, arthritis. Patient reports that she has been unable to take her medications due to the nausea and vomiting. Patient has attempted to take nausea medications without relief. Denies abdominal pain, just reports nausea. Patient was treated for urinary tract infection several weeks ago, but no cultures available for review. Denies chest pain, shortness of breath, fever, chills, headache, neck pain, eye symptoms, back pain. Nurses Notes reviewed and agree, including vitals, allergies, social history and prior medical history. REVIEW OF SYSTEMS: All systems reviewed and not pertinent unless noted. Review of Systems Gastrointestinal: Positive for nausea and vomiting. All other systems reviewed and are negative. Past Medical History: Diagnosis Date Anxiety Arthritis Cancer Chronic pain disorder Depression Migraine Neck pain Allergies: Imitrex [sumatriptan], Penicillins, and Topamax [topiramate] Past Surgical History: Procedure Laterality Date APPENDECTOMY SECTION THYROIDECTOMY, PARTIAL TONSILLECTOMY TUBAL ABDOMINAL LIGATION Social History Socioeconomic History Marital status: Tobacco Use Smoking status: Never Smokeless tobacco: Never Substance and Sexual Activity Alcohol use: No Drug use: No Sexual activity: Defer Family History Problem Relation Name Age of Onset Cancer Mother Dementia Mother Diabetes Father Heart disease Father Hypertension Father Stroke Father Dementia Maternal Aunt Diabetes Maternal Aunt Cancer Maternal Grandmother Diabetes Maternal Grandmother Heart disease Maternal Grandmother Hypertension Maternal Grandmother Stroke Maternal Grandmother Objective Physical Exam: BP 104/63 Pulse 87 Temp 98.9 ??F (37.2 ??C) (Oral) Resp 22 Ht 160 cm (63 ) Wt 70.4 kg (155 lb 3.2 oz) LMP (LMP Unknown) SpO2 98% BMI 27.49 kg/m?? Physical Exam Vitals and nursing note reviewed. HENT: Head: Normocephalic. Cardiovascular: Rate and Rhythm: Normal rate and regular rhythm. Heart sounds: Normal heart sounds. Pulmonary: Effort: Pulmonary effort is normal. Breath sounds: Normal breath sounds. Abdominal: General: Abdomen is flat. Palpations: Abdomen is soft. Tenderness: There is no abdominal tenderness. Skin: Capillary Refill: Capillary refill takes less than 2 seconds. Neurological: General: No focal deficit present. Mental Status: She is alert and oriented to person, place, and time. Psychiatric: Mood and Affect: Mood normal. Behavior: Behavior normal. Procedures ED Course: ED Course as of 09/19/25 [address] [place] Sep 19, [id number] WBC(!): 17.66 [WB] 193 Hemoglobin: 13.3 [WB] 193 Hematocrit: 41.1 [WB] 193 Glucose(!): 164 [WB] 193 Creatinine(!): 1.09 [WB] 193 BUN: 14.7 [WB] 1931 Lactate(!!): 2.3 [WB] 1957 HS Troponin T(!): 22 [WB] 1957 HS Troponin T(!): 21 [WB] 2037 Leukocytes, UA(!): Small (1+) [WB] 2037 Nitrite, UA: Negative [WB] 2037 WBC, UA(!): 21-50 [WB] 2037 Bacteria, UA(!): 3+ [WB] 2037 RBC, UA(!): 6-10 [WB] ED Course User Index [WB] Jennifer Hagan PA-C Lab Results (last 24 hours) Procedure Component Value Units Date/Time CBC & Differential [[id number]] (Abnormal) Collected: 09/19/251825 Specimen: Blood Updated: 09/19/251837 Narrative: The following orders were created for panel order CBC & Differential. Procedure Abnormality Status --------- ------ CBC Auto Differential[[id number]] AbnormalFinal result Please view results for these tests on the individual orders. Comprehensive Metabolic Panel [[id number]] (Abnormal) Collected: 09/19/251825 Specimen: Blood Updated: 09/19/251857 Glucose 164 mg/dL BUN 14.7 mg/dL Creatinine 1.09 mg/dL Sodium 135 mmol/L Potassium 3.7 mmol/L Chloride 94 mmol/L CO2 22.5 mmol/L Calcium 9.8 mg/dL Total Protein 7.9 g/dL Albumin 3.8 g/dL ALT (SGPT) 19 U/L AST (SGOT) 28 U/L Alkaline Phosphatase 109 U/L Total Bilirubin 0.8 mg/dL Globulin 4.1 gm/dL A/G Ratio 0.9 g/dL BUN/Creatinine Ratio 13.5 Anion Gap 18.5 mmol/L eGFR 57.6 mL/min/1.73 Narrative: GFR Categories in Chronic Kidney Disease (CKD) GFR Category GFR (mL/min/1.73) Interpretation G1 90 or greater Normal or high (1) G2 60-89 Mild decrease (1) G3a 45-59 Mild to moderate decrease G3b 30-44 Moderate to severe decrease G4 15-29 Severe decrease G5 14 or less Kidney failure (1)In the absence of evidence of kidney disease, neither GFR category G1 or G2 fulfill the criteriafor CKD. eGFR calculation 2020 CKD-EPI creatinine equation, which does not include race as a factor Lipase [[id number]] (Normal) Collected: 09/19/251825 Specimen: Blood Updated: 09/19/251856 Lipase 60 U/L CBC Auto Differential [[id number]] (Abnormal) Collected: 09/19/251825 Specimen: Blood Updated: 09/19/251837 WBC 17.66 10*3/mm3 RBC 5.25 10*6/mm3 Hemoglobin 13.3 g/dL Hematocrit 41.1 % MCV 78.3 fL MCH 25.3 pg MCHC 32.4 g/dL RDW 15.2 % RDW-SD 43.4 fl MPV 9.2 fL Platelets 306 10*3/mm3 Neutrophil % 88.7 % Lymphocyte % 5.9 % Monocyte % 4.8 % Eosinophil % 0.1 % Basophil % 0.0 % Immature Grans % 0.5 % Neutrophils, Absolute 15.66 10*3/mm3 Lymphocytes, Absolute 1.05 10*3/mm3 Monocytes, Absolute 0.84 10*3/mm3 Eosinophils, Absolute 0.02 10*3/mm3 Basophils, Absolute 0.00 10*3/mm3 Immature Grans, Absolute 0.09 10*3/mm3 Lactic Acid, Plasma [[id number]] (Abnormal) Collected: 09/19/251825 Specimen: Blood Updated: 09/19/251856 Lactate 2.3 mmol/L High Sensitivity Troponin T [[id number]] (Abnormal) Collected: 09/19/251825 Specimen: Blood Updated: 09/19/251854 HS Troponin T 22 ng/L Procalcitonin [[id number]] (Normal) Collected: 09/19/251825 Specimen: Blood Updated: 09/19/252101 Procalcitonin 0.17 ng/mL High Sensitivity Troponin T 1Hr [[id number]] (Abnormal) Collected: 09/19/251934 Specimen: Blood Updated: 09/19/251955 HS Troponin T 21 ng/L Troponin T Numeric Delta -1 ng/L Troponin T % Delta -5 Narrative: High Sensitive Troponin T Reference Range: <14.0 ng/L- Negative Female for AMI <22.0 ng/L- Negative Male for AMI >=14 - Abnormal Female indicating possible myocardial injury. >=22 - Abnormal Male indicating possible myocardial injury. Clinicians would have to utilize clinical acumen, EKG, Troponin, and serial changes to determine if it is an Acute Myocardial Infarctionor myocardial injury due to an underlying chronic condition. Urinalysis With Microscopic If Indicated (No Culture) - Urine, Clean Catch [[id number]] (Abnormal) Collected: 09/19/252009 Specimen: Urine, Clean Catch Updated: 09/19/252017 Color, UA Yellow Appearance, UA Clear pH, UA 6.5 Specific [place], UA 1.010 Glucose, UA Negative Ketones, UA Negative Bilirubin, UA Small (1+) Blood, UA Negative Protein, UA Trace Leuk Esterase, UA Small (1+) Nitrite, UA Negative Urobilinogen, UA 1.0 E.U./dL Urinalysis, Microscopic Only - Urine, Clean Catch [[id number]] (Abnormal) Collected: 09/19/252009 Specimen: Urine, Clean Catch Updated: 09/19/252020 RBC, UA 6-10 /HPF WBC, UA 21-50 /HPF Bacteria, UA 3+ /HPF Squamous Epithelial Cells, UA 7-12 /HPF Hyaline Casts, UA 0-2 /LPF Mucus, UA Large/3+ /HPF Methodology Manual Light Microscopy Urine Culture - Urine, Urine, Clean Catch [[id number]] Collected: 09/19/252009 Specimen: Urine, Clean Catch Updated: 09/19/252057 STAT Lactic Acid, Reflex [[id number]] (Normal) Collected: 09/19/252140 Specimen: Blood Updated: 09/19/252201 Lactate 2.0 mmol/L XR Chest 1 View Result Date: 09/19/2025 XR CHEST 1 VW Date of Exam: 09/19/2025 9:18 PM EST Indication: weakness. Comparison: None available. Findings: The heart, mediastinum and pulmonary vasculature appear within normal limits. Lungs appear normally inflated and clear. No edema, effusion or pneumothorax is seen. Impression: Impression: No evidence of active chest disease. Electronically Signed: Yadiel Ware MD 09/19/2025 9:37 PM EST Workstation ID: [id number] CT Abdomen Pelvis With Contrast Result Date: 09/19/2025 CT ABDOMEN PELVIS W CONTRAST Date of Exam: 09/19/2025 6:59 PM EST Indication: nausea and vomiting x4 months. Comparison: None available. Technique: Axial CT images were obtained of the abdomen and pelvis following the uneventful intravenous administration of iodinated contrast. Reconstructed coronal and sagittal images were also obtained. Automated exposure control and iterative construction methods were used. Findings: History also indicates weight loss. The included lower lungs appear clear except for trace groundglass disease in the lower lobes. No lung consolidation or effusion is seen. There is diffuse fatty liver change. Clips are seen in the gallbladder fossa. Portal, splenic, and superior mesenteric veins enhance normally with contrast. Spleen is not enlarged. No significant abnormalities are appreciated of the pancreas or adrenal glands. There is bilateral renal cortical scarring. Kidneys otherwise appear unremarkable, with no evidence of obstructive uropathy. No abnormal renal enhancement is seen to suggest active pyelonephritis. There may be a 2 mm left upper pole renal calculus. No upper abdominal free air, ascites, adenopathy, or acute inflammatory focus is seen. Incidental note is made of a relatively large but intact appearing, 4.5 cm distal duodenal diverticulum. Regarding the lower abdomen and pelvis, the colon contains only air and fluid and no formed stool or semisolid stool is seen. No definite colon wall inflammation is identified. Terminal ileum and cecum are located in the right mid abdomen and appear normal. Appendix is not identified. Bladder is mildly distended and normal in appearance. Uterus and ovaries appear appropriately atrophic. Delayed venous phase images show no evidence of obstructive uropathy. Review of the bony structures shows [id number] end plate compression deformity but no acute bony abnormality is seen. Impression: Impression: 1. Fairly extensive bilateral renal cortical scarring, but no evidence of ongoing obstructive uropathy, or evidence to suggest pyelonephritis currently. Minute nonobstructing left upper pole renal calculus noted. 2. Colon contains mostly air and a trace amount of fluid, perhaps reflecting diarrhea. No obvious colonic inflammatory change or evidence of obstruction. 3. No other evidence of acute abdominal intrapelvic disease elsewhere. Electronically Signed: Yadiel Ware MD 09/19/2025 7:30 PM EST Workstation ID: [id number] MDM Number of Diagnoses or Management Options Nausea and vomiting, unspecified vomiting type: new and requires workup Diagnosis management comments: Patient is a 60-year-old female who presents emergency department complaining of nausea and vomiting. Differential diagnosis includes gastroenteritis, diverticulitis, pancreatitis, nonspecific abdominal pain. On physical exam patient does not have any abdominal tenderness, but states that she is just sore inside. CBC, CMP, lactic, procalcitonin, lipase, CT abdomen pelvis, chest x-ray, EKG ordered. Labs returned with a white count of 17 and a urinalysis showing UTI. Urine cultures ordered and patient was given Rocephin. Patient's lactic was initially elevated, but decreased after fluids. I have a lengthy discussion with patient and her daughter at bedside about appropriate disposition and the need for outpatient follow-up. I informed them that at this time I do not have a reason to admit patient, but a urine culture will be ordered and patient will be started on antibiotics. They verbalized understanding today's remission and need for appropriate follow-up. Amount and/or Complexity of Data Reviewed Clinical lab tests: reviewed Tests in the radiology section of CPT??: reviewed Tests in the medicine section of CPT??: reviewed Medications Sodium Chloride (PF) 0.9 % 10 mL (has no administration in time range) iopamidol (ISOVUE-300) 61 % injection 100 mL (90 mL Intravenous Given 09/19/251908) sodium chloride 0.9 % bolus 1,000 mL (0 mL Intravenous Stopped 09/19/252105) ondansetron (ZOFRAN) injection 4 mg (4 mg Intravenous Given 09/19/252105) cefTRIAXone (ROCEPHIN) 2,000 mg in sodium chloride 0.9 % 100 mL MBP (0 mg Intravenous Stopped 09/19/252143) Data interpreted: Nursing notes reviewed, vital signs reviewed. Labs independently interpreted by me (CBC, CMP, lipase, UA, troponin, ABG, lactic acid, procalcitonin). Imaging independently interpreted by me (x-ray, CT scan). EKG independently interpreted by me. O2 saturation: 98% Counseling: Discussed the results above with the patient regarding need for discharge. Patient understands and agrees plan of care. ----- ED Disposition ED Disposition Discharge Condition Stable Comment -- Final diagnoses: Nausea and vomiting, unspecified vomiting type Your Follow-Up Providers [facility]. Schedule an appointment as soon as possible for a visit in 2 days. Specialty: Gastroenterology [address] [place] [address] [address] [place] [phone] Additional information: The practice is located in the [address] building. There is pmo analyst parking at the main entrance. Go to [facility] [place]. Specialty: Emergency Medicine Follow up details: As needed, If symptoms worsen [address] [place] [address] [facility] [address] Contact information for after-discharge care Follow-up information has not been specified. Your medication list CONTINUE taking these medications Instructions Last Dose Given Next Dose Due atorvastatin 40 MG tablet Commonly known as: LIPITOR Take 40 mg by mouth Every Night. Butalbital-APAP 50-325 MG tablet Take by mouth. diazePAM 5 MG tablet Commonly known as: VALIUM Take 5 mg by mouth 2 (Two) Times a Day As Needed for Anxiety. hydrOXYzine 25 MG tablet Commonly known as: ATARAX Take 25 mg by mouth As Needed for Itching. ibuprofen 800 MG tablet Commonly known as: ADVIL,MOTRIN Take 800 mg by mouth Every 6 (Six) Hours As Needed for Mild Pain (1-3). levothyroxine 150 MCG tablet Commonly known as: SYNTHROID, LEVOTHROID Take 150 mcg by mouth Daily. meclizine 25 MG chewable tablet chewable tablet Chew 25 mg 3 (Three) Times a Day As Needed. nortriptyline 10 MG capsule Commonly known as: PAMELOR Take 10 mg by mouth Every Night. omeprazole 20 MG capsule Commonly known as: priLOSEC Take 20 mg by mouth Daily. promethazine 25 MG tablet Commonly known as: PHENERGAN Take 25 mg by mouth Every 6 (Six) Hours As Needed for Nausea or Vomiting. traMADol 50 MG tablet Commonly known as: ULTRAM Take 50 mg by mouth Every 6 (Six) Hours As Needed for Moderate Pain (4-6). Ubrelvy 100 MG tablet Generic drug: ubrogepant Take by mouth. Vraylar 1.5 MG capsule capsule Generic drug: Cariprazine HCl Take 1.5 mg by mouth Daily. Cosigned by Eulogio Jamil MD at 09/20/2025 12:46 AM EST Associated attestation - Eulogio Jamil MD - 09/20/2025 12:46 AM EST SUPERVISE: For this patient encounter, I reviewed the APC's documentation, treatment plan, and medical decision making. Eulogio Jamil MD 09/20/2025 00:46 EST documented in this encounter Plan of Treatment Upcoming Encounters Date Type Department Care Team (Late st Contact Info) Description 12/31/2025 10:45 AM EST Office Visit [facility] [address] [facility] [address] [place] [address] Breanne Peterson, PODIATRIC MEDICINE PROFESSOR [address] [facility] [address] [place] [address] Scheduled Referrals Name Type Priority Associated Diagnoses Order Schedule Ambulatory Referral to Gastroenterology Outpatient Referral Routine Nausea and vomiting, unspecified vomiting type Ordered: 09/19/2025 documented as of this encounter Procedures Procedure Name Priority Date/Time Associated Diagnosis Comments LACTIC ACID, REFLEX STAT 09/19/2025 9 :41 PM EST XR CHEST 1 VW STAT 09/19/2025 9:30 PM EST URINALYSIS, MICROSCOPIC ONLY STAT 09/19/2025 8:10 PM EST URINALYSIS W/ MICROSCOPIC IF INDICATED (NO CULTURE) STAT 09/19/2025 8:10 PM EST URINE CULTURE STAT 09/19/2025 8:10 PM EST HIGH SENSITIVITIY TROPONIN T 1HR STAT 09/19/2025 7:[address] ABDOMEN PELVIS W CONTRAST STAT 09/19/2025 7:09 PM EST ECG 12-LEAD STAT 09/19/2025 6:43 PM EST COLON TOP STAT 09/19/2025 6:26 PM EST GOLD TOP - SST STAT 09/19/2025 6:26 PM EST DK GREEN TOP STAT 09/19/2025 6:26 PM EST PROCALCITONIN STAT 09/19/2025 6:26 PM EST CBC WITH AUTO DIFFERENTIAL STAT 09/19/2025 6:26 PM EST LAVENDER TOP STAT 09/19/2025 6:26 PM EST LIGHT BLUE TOP STAT 09/19/2025 6:26 PM EST RAINBOW DRAW STAT 09/19/2025 6:26 PM EST TROPONIN STAT 09/19/2025 6:26 PM EST CBC AND DIFFERENTIAL STAT 09/19/2025 6:26 PM EST LIPASE STAT 09/19/2025 6:26 PM EST LACTIC ACID, PLASMA STAT 09/19/2025 6 :26 PM EST COMPREHENSIVE METABOLIC PANEL STAT 09/19/2025 6:26 PM EST SCANNED - LABS 09/19/2025 SCANNED - IMAGING 09/02/2025 documented in this encounter Results * STAT Lactic Acid, Reflex (09/19/2025 9:41 PM EST) Lactate 2.0 0.5 - 2.0 mmol/L 09/19/2025 10:02 PM EST [facility] Blood Venipuncture / Unknown 09/19/2025 9:41 PM EST 09/19/2025 9:45 PM EST us Jennifer Y Danya PA-C LAB BLOOD ORDERABLES Fin al Result [facility]
[address] [place] [address], * XR Chest 1 View (09/19/2025 9:30 PM EST) Anatomical Region Laterality Modality Body N/A Radiographic Rima ging 09/19/2025 9:35 PM EST Impressions 09/19/2025 9:37 PM EST Impression: No evidence of active chest disease. Electronically Signed: Yadiel Ware MD 09/19/2025 9:37 PM EST Workstation ID: [id number] Narrative 09/19/2025 9:37 PM EST XR CHEST 1 VW Date of Exam: 09/19/2025 9:18 PM EST Indication: weakness. Comparison: None available. Findings: The heart, mediastinum and pulmonary vasculature appear within normal limits. Lungs appear normally inflated and clear. No edema, effusion or pneumothorax is seen. Procedure Note Yadiel Ware MD - 09/19/2025 XR CHEST 1 VW Date of Exam: 09/19/2025 9:18 PM EST Indication: weakness. Comparison: None available. Findings: The heart, mediastinum and pulmonary vasculature appear within normallimits. Lungs appear normally inflated and clear. No edema, effusion orpneumothorax is seen. IMPRESSION: Impression: No evidence of active chest disease. Electronically Signed: Yadiel Ware MD 09/19/2025 9:37 PM EST Workstation ID: [id number] us Jennifer Hagan PA-C IMG DIAGNOSTIC IMAGING O RDERABLES Final Result * Urine Culture - Urine, Urine, Clean Catch (09/19/2025 8:10 PM EST) Urine Culture >100,000 CFU/mL Mixed Scarlett Isolated MARCO 09/21/2025 12:59 PM EST LABORATORY Urine Urine specimen obtained by clean catch procedure / Unknown Collection / Unknown 09/19/2025 8:10 PM EST 09/19/2025 8:12 PM EST Narrative LABORATORY - 09/21/2025 12:59 PM EST Specimen contains mixed organisms of questionable pathogenicity suggestive of contamination. If symptoms persist, suggest recollection. Colonization of the urinary tract without infection is common. Treatment is discouraged unless the patient is symptomatic, , or undergoing an invasive urologic procedure. Jennifer Hagan PA-C MICROBIOLOGY - GENERAL O RDERABLES Final Result LABORATORY
[address] [place] [address], * (ABNORMAL) Urinalysis, Microscopic Only - Urine, Clean Catch (09/19/2025 8:10 PM EST) RBC, UA 6-10(A) None Seen, 0-2 /HPF 09/19/2025 8:21 PM EST [facility] WBC, UA 21-50(A) None Seen, 0-2 /HPF 09/19/2025 8:21 PM EST [facility] Bacteria, UA 3+(A) None Seen /HPF 09/19/2025 8:21 PM EST [facility] Squamous Epithelial Cells, UA 7-12(A) None Seen, 0-2 /HPF 09/19/2025 8:21 PM EST [facility] Hyaline Casts, UA 0-2 None Seen /LPF 09/19/2025 8:21 PM EST [facility] Mucus, UA Large/3+(A) None Seen, Trace /HPF 09/19/2025 8:21 PM EST [facility] Methodology Manual Light Microscopy 09/19/2025 8:21 PM EST [facility] Urine Urine specimen obtained by clean catch procedure / Unknown Collection / Unknown 09/19/2025 8:10 PM EST 09/19/2025 8:12 PM EST Nasir Wilson MD URINE ORDERABLES Final Resu lt [facility]
[address] [facility] [address] [place] [address], [place] * (ABNORMAL) Urinalysis With Microscopic If Indicated (No Culture) - Urine, Clean Catch (09/19/2025 8:10 PM EST) Color, UA Yellow Yellow, Straw 09/19/2025 8:18 PM EST [facility] Appearance, UA Clear Clear 09/19/2025 8:18 PM EST [facility] pH, UA 6.5 5.0 - 8.0 09/19/2025 8:18 PM EST [facility] Specific [place], UA 1.010 1.005 - 1.030 09/19/2025 8:18 PM EST [facility] Glucose, UA Negative Negative 09/19/2025 8:18 PM EST [facility] Ketones, UA Negative Negative 09/19/2025 8:18 PM EST [facility] Bilirubin, UA Small (1+)(A) Negative 09/19/2025 8:18 PM EST [facility] Blood, UA Negative Negative 09/19/2025 8:18 PM EST [facility] Protein, UA Trace(A) Negative 09/19/2025 8:18 PM EST [facility] Leuk Esterase, UA Small (1+)(A) Negative 09/19/2025 8:18 PM EST [facility] Nitrite, UA Negative Negative 09/19/2025 8:18 PM EST [facility] Urobilinogen, UA 1.0 E.U./dL 0.2 - 1.0 E.U./dL 09/19/2025 8:18 PM EST [facility] Urine Urine specimen obtained by clean catch procedure / Unknown Collection / Unknown 09/19/2025 8:10 PM EST 09/19/2025 8:12 PM EST us Nasir Wilson MD URINE ORDERABLES Final Resu lt [facility]
[address] [facility] [address] [place] [address], [place] * (ABNORMAL) High Sensitivity Troponin T 1Hr (09/19/2025 7:35 PM EST) HS Troponin T 21(H) <14 ng/L 09/19/2025 7:56 PM EST [facility] Troponin T Numeric Delta -1 ng/L 09/19/2025 7:56 PM EST [facility] Troponin T % Delta -5 Abnormal if >/= 20% 09/19/2025 7:56 PM EST [facility] Blood Line / Unknown 09/19/2025 7: 35 PM EST 09/19/2025 7:38 PM EST Narrative [facility] - 09/19/2025 7:56 PM EST High Sensitive Troponin T Reference Range: <14.0 ng/L- Negative Female for AMI <22.0 ng/L- Negative Male for AMI >=14 - Abnormal Female indicating possible myocardial injury. >=22 - Abnormal Male indicating possible myocardial injury. Clinicians would have to utilize clinical acumen, EKG, Troponin, and serial changes to determine if it is an Acute Myocardial Infarction or myocardial injury due to an underlying chronic condition. us Jennifer Hagan PA-C LAB BLOOD ORDERABLES Fin al Result [facility]
[address] [facility] [address] [place] [address], [place] * CT Abdomen Pelvis With Contrast (09/19/2025 7:09 PM EST) Anatomical Region Laterality Modality Abdomen, Pelvis N/A Computed Tomogra phy 09/19/2025 7:20 PM EST Impressions 09/19/2025 7:30 PM EST Impression: 1. Fairly extensive bilateral renal cortical scarring, but no evidence of ongoing obstructive uropathy, or evidence to suggest pyelonephritis currently. Minute nonobstructing left upper pole renal calculus noted. 2. Colon contains mostly air and a trace amount of fluid, perhaps reflecting diarrhea. No obvious colonic inflammatory change or evidence of obstruction. 3. No other evidence of acute abdominal intrapelvic disease elsewhere. Electronically Signed: Yadiel Ware MD 09/19/2025 7:30 PM EST Workstation ID: [id number] Narrative 09/19/2025 7:[address] ABDOMEN PELVIS W CONTRAST Date of Exam: 09/19/2025 6:59 PM EST Indication: nausea and vomiting x 4 months. Comparison: None available. Technique: Axial CT images were obtained of the abdomen and pelvis following the uneventful intravenous administration of iodinated contrast. Reconstructed coronal and sagittal images were also obtained. Automated exposure control and iterative construction methods were used. Findings: History also indicates weight loss. The included lower lungs appear clear except for trace groundglass disease in the lower lobes. No lung consolidation or effusion is seen. There is diffuse fatty liver change. Clips are seen in the gallbladder fossa. Portal, splenic, and superior mesenteric veins enhance normally with contrast. Spleen is not enlarged. No significant abnormalities are appreciated of the pancreas or adrenal glands. There is bilateral renal cortical scarring. Kidneys otherwise appear unremarkable, with no evidence of obstructive uropathy. No abnormal renal enhancement is seen to suggest active pyelonephritis. There may be a 2 mm left upper pole renal calculus. No upper abdominal free air, ascites, adenopathy, or acute inflammatory focus is seen. Incidental note is made of a relatively large but intact appearing, 4.5 cm distal duodenal diverticulum. Regarding the lower abdomen and pelvis, the colon contains only air and fluid and no formed stool or semisolid stool is seen. No definite colon wall inflammation is identified. Terminal ileum and cecum are located in the right mid abdomen and appear normal. Appendix is not identified. Bladder is mildly distended and normal in appearance. Uterus and ovaries appear appropriately atrophic. Delayed venous phase images show no evidence of obstructive uropathy. Review of the bony structures shows L1 superior end plate compression deformity but no acute bony abnormality is seen. Procedure Note Yadiel Ware MD - 09/19/2025 CT ABDOMEN PELVIS W CONTRAST Date of Exam: 09/19/2025 6:59 PM EST Indication: nausea and vomiting x 4 months. Comparison: None available. Technique: Axial CT images were obtained of the abdomen and pelvisfollowing the uneventful intravenous administration of iodinated contrast.Reconstructed coronal and sagittal images were also obtained. Automatedexposure control and iterative construction methods were used. Findings: History also indicates weight loss. The included lower lungs appear clear except for trace groundglass diseasein the lower lobes. No lung consolidation or effusion is seen. There isdiffuse fatty liver change. Clips are seen in the gallbladder fossa.Portal, splenic, and superior mesenteric veins enhance normally with contrast. Spleen is not enlarged.No significant abnormalities are appreciated of the pancreas or adrenalglands. There is bilateral renal cortical scarring. Kidneys otherwiseappear unremarkable, with no evidence of obstructive uropathy. No abnormal renal enhancement is seen to suggestactive pyelonephritis. There may be a 2 mm left upper pole renalcalculus. No upper abdominal free air, ascites, adenopathy, or acute inflammatoryfocus is seen. Incidental note is made of a relatively large but intactappearing, 4.5 cm distal duodenal diverticulum. Regarding the lowerabdomen and pelvis, the colon contains only air and fluid and no formed stool or semisolid stool is seen. Nodefinite colon wall inflammation is identified. Terminal ileum and cecumare located in the right mid abdomen and appear normal. Appendix is notidentified. Bladder is mildly distended and normal in appearance. Uterus and ovaries appear appropriatelyatrophic. Delayed venous phase images show no evidence of obstructive uropathy.Review of the bony structures shows L1 superior end plate compressiondeformity but no acute bony abnormality is seen. IMPRESSION: Impression: 1. Fairly extensive bilateral renal cortical scarring, but no evidence ofongoing obstructive uropathy, or evidence to suggest pyelonephritiscurrently. Minute nonobstructing left upper pole renal calculus noted. 2. Colon contains mostly air and a trace amount of fluid, perhapsreflecting diarrhea. No obvious colonic inflammatory change or evidence ofobstruction. 3. No other evidence of acute abdominal intrapelvic disease elsewhere. Electronically Signed: Yadiel Ware MD 09/19/2025 7:30 PM EST Workstation ID: [id number] us Jennifer Hagan PA-C IMG CT ORDERABLES Final Result * ECG 12 Lead QT Measurement (09/19/2025 6:43 PM EST) QT Interval 360 ms ECG QTC Interval 452 ms ECG 09/19/2025 6:43 PM EST 10/12/2025 6:51 PM EST Narrative ECG - 10/12/2025 6:51 PM EST Test Reason : QT Measurement Blood Pressure : */* mmHG Vent. Rate : 95 BPM Atrial Rate : 95 BPM P-R Int : 160 ms QRS Dur : 96 ms QT Int : 360 ms P-R-T Axes : 17 231 21 degrees QTcB Int : 452 ms Normal sinus rhythm Inferior infarct , age undetermined Anterolateral infarct , age undetermined Abnormal ECG No previous ECGs available Confirmed by Eulogio Jamil ([id number]) on 10/12/2025 6:51:42 PM Referred By: Confirmed By: Eulogio Jamil Procedure Note Eulogio Jamil MD - 10/12/2025 Test Reason : QT Measurement Blood Pressure : */* mmHG Vent. Rate : 95 BPM Atrial Rate : 95 BPM P-R Int : 160 ms QRS Dur : 96 ms QT Int : 360 ms P-R-T Axes : 17 231 21 degrees QTcB Int : 452 ms Normal sinus rhythm Inferior infarct , age undetermined Anterolateral infarct , age undetermined Abnormal ECG No previous ECGs available Confirmed by Eulogio Jamil ([id number]) on 10/12/2025 6:51:42 PM Referred By: Confirmed By: Eulogio Jamil us Jennifer Y Breeding PA-C ECG ORDERABLES Final Re sult ECG * Procalcitonin (09/19/2025 6:26 PM EST) Procalcitonin 0.17 0.00 - 0.25 ng/mL 09/19/2025 9:02 PM EST [employer] Blood Line / Unknown 09/19/2025 6: 26 PM EST 09/19/2025 6:34 PM EST us Jennifer Y Breeding PA-C LAB BLOOD ORDERABLES Fin al Result [facility]
[address] [facility] [address] [place] [address], [place] * (ABNORMAL) High Sensitivity Troponin T (09/19/2025 6:26 PM EST) Pathologist [facility] HS Troponin T 22(H) <14 ng/L 09/19/2025 6:55 PM EST [facility] Blood Line / Unknown 09/19/2025 6: 26 PM EST 09/19/2025 6:34 PM EST us Jennifer Hagan PA-C LAB BLOOD ORDERABLES Fin al Result [facility]
[address] [facility] [address] [place] [address], [place] * (ABNORMAL) Lactic Acid, Plasma (09/19/2025 6:26 PM EST) [facility] Lactate 2.3(HH) 0.5 - 2.0 mmol/L 09/19/2025 6:57 PM EST [facility] Blood Line / Unknown 09/19/2025 6: 26 PM EST 09/19/2025 6:34 PM EST us Jennifer JIMENEZ-C LAB BLOOD ORDERABLES Fin al Result Performing Organization Address City/[facility]/ZIP Co de Phone Number [facility]
[address] [place] [address], [place] * (ABNORMAL) CBC Auto Differential (09/19/2025 6:26 PM EST) [facility] WBC 17.66(H) 3.40 - 10.80 10*3/mm3 09/19/2025 6:38 PM EST [facility] RBC 5.25 3.77 - 5.28 10*6/mm3 09/19/2025 6:38 PM EST [facility] Hemoglobin 13.3 12.0 - 15.9 g/dL 09/19/2025 6:38 PM EST [facility] Hematocrit 41.1 34.0 - 46.6 % 09/19/2025 6:38 PM EST [facility] MCV 78.3(L) 79.0 - 97.0 fL 09/19/2025 6:38 PM [facility] MCH 25.3(L) 26.6 - 33.0 pg 09/19/2025 6:38 PM [facility] MCHC 32.4 31.5 - 35.7 g/dL 09/19/2025 6:38 PM [facility] RDW 15.2 12.3 - 15.4 % 09/19/2025 6:38 PM [facility] RDW-SD 43.4 37.0 - 54.0 fl 09/19/2025 6:38 PM [facility] MPV 9.2 6.0 - 12.0 fL 09/19/2025 6:38 PM [facility] Platelets 306 140 - 450 10*3/mm3 09/19/2025 6:38 PM [facility] Neutrophil % 88.7(H) 42.7 - 76.0 % 09/19/2025 6:38 PM [facility] Lymphocyte % 5.9(L) 19.6 - 45.3 % 09/19/2025 6:38 PM [facility] Monocyte % 4.8(L) 5.0 - 12.0 % 09/19/2025 6:38 PM [facility] Eosinophil % 0.1(L) 0.3 - 6.2 % 09/19/2025 6:38 PM [facility] Basophil % 0.0 0.0 - 1.5 % 09/19/2025 6:38 PM [facility] Immature Grans % 0.5 0.0 - 0.5 % 09/19/2025 6:38 PM [facility] Neutrophils, Absolute 15.66(H) 1.70 - 7.00 10*3/mm3 09/19/2025 6:38 PM [facility] Lymphocytes, Absolute 1.05 0.70 - 3.10 10*3/mm3 09/19/2025 6:38 PM [facility] Monocytes, Absolute 0.84 0.10 - 0.90 10*3/mm3 09/19/2025 6:38 PM [facility] Eosinophils, Absolute 0.02 0.00 - 0.40 10*3/mm3 09/19/2025 6:38 PM EST [facility] Basophils, Absolute 0.00 0.00 - 0.20 10*3/mm3 09/19/2025 6:38 PM EST [facility] Immature Grans, Absolute 0.09(H) 0.00 - 0.05 10*3/mm3 09/19/2025 6:38 PM EST [facility] Blood Line / Unknown 09/19/2025 6: 26 PM EST 09/19/2025 6:34 PM EST us Nasir Wilson MD LAB BLOOD ORDERABLES Final Result [facility]
[address] [place] [address], [place] * Light Blue Top (09/19/2025 6:26 PM EST) Extra Tube Hold for add-ons. 09/19/2025 6:45 PM EST [facility] Comment:Auto resulted Blood Line / Unknown 09/19/2025 6: 26 PM EST 09/19/2025 6:34 PM EST us Nasir Wilson MD LAB BLOOD ORDER ONLY Final Result [facility]
[address] [place] [address], [place] * Colon Top (09/19/2025 6:26 PM EST) Extra Tube Hold for add-ons. 09/19/2025 6:45 PM EST [facility] Comment:Auto resulted. Blood Line / Unknown 09/19/2025 6: 26 PM EST 09/19/2025 6:34 PM EST us Nasir Wilson MD LAB BLOOD ORDER ONLY Final Result Performing Organization Address City/[facility]/ZIP Co de Phone Number [facility]
[address] [facility] [address] [place] [address], [place] * Gold Top - SST (09/19/2025 6:26 PM EST) Extra Tube Hold for add-ons. 09/19/2025 6:45 PM EST [facility] Comment:Auto resulted. Blood Line / Unknown 09/19/2025 6: 26 PM EST 09/19/2025 6:34 PM EST us Nasir Wilson MD LAB BLOOD ORDER ONLY Final Result Performing Organization Address [facility] Co de Phone Number [facility]
[address] [facility] [address] [place] [address], [place] * Lavender Top (09/19/2025 6:26 PM EST) Extra Tube hold for add-on 09/19/2025 6:45 PM EST [facility] Comment:Auto resulted Blood Line / Unknown 09/19/2025 6: 26 PM EST 09/19/2025 6:34 PM EST us Nasir Wilson MD LAB BLOOD ORDER ONLY Final Result Performing Organization Address [facility] Co de Phone Number [facility]
[address] [facility] [address] [place] [address], [place] * Green Top (Gel) (09/19/2025 6:26 PM EST) Extra Tube Hold for add-ons. 09/19/2025 6:45 PM EST [facility] Comment:Auto resulted. Blood Line / Unknown 09/19/2025 6: 26 PM EST 09/19/2025 6:34 PM EST us Nasir Wilson MD LAB BLOOD ORDER ONLY Final Result [facility]
[address] [facility] [address] [place] [address], * Lipase (09/19/2025 6:26 PM EST) Lipase 60 13 - 60 U/L 09/19/2025 6:57 PM EST [facility] Blood Line / Unknown 09/19/2025 6: 26 PM EST 09/19/2025 6:34 PM EST us Nasir Wilson MD LAB BLOOD ORDERABLES Final Result [facility]
[address] [facility] [address] [place] [address], * (ABNORMAL) Comprehensive Metabolic Panel (09/19/2025 6:26 PM EST) Glucose 164(H) 65 - 99 mg/dL 09/19/2025 6:58 PM EST [facility] BUN 14.7 8.0 - 23.0 mg/dL 09/19/2025 6:58 PM [facility] Creatinine 1.09(H) 0.57 - 1.00 mg/dL 09/19/2025 6:58 PM [facility] Sodium 135(L) 136 - 145 mmol/L 09/19/2025 6:58 PM [facility] Potassium 3.7 3.5 - 5.2 mmol/L 09/19/2025 6:58 PM [facility] Chloride 94(L) 98 - 107 mmol/L 09/19/2025 6:58 PM [facility] CO2 22.5 22.0 - 29.0 mmol/L 09/19/2025 6:58 PM [facility] Calcium 9.8 8.6 - 10.5 mg/dL 09/19/2025 6:58 PM [facility] Total Protein 7.9 6.0 - 8.5 g/dL 09/19/2025 6:58 PM [facility] Albumin 3.8 3.5 - 5.2 g/dL 09/19/2025 6:58 PM EST [facility] ALT (SGPT) 19 1 - 33 U/L 09/19/2025 6:58 PM EST [facility] AST (SGOT) 28 1 - 32 U/L 09/19/2025 6:58 PM EST [facility] Alkaline Phosphatase 109 39 - 117 U/L 09/19/2025 6:58 PM EST [facility] Total Bilirubin 0.8 0.0 - 1.2 mg/dL 09/19/2025 6:58 PM EST [facility] Globulin 4.1 gm/dL 09/19/2025 6:58 PM EST [facility] A/G Ratio 0.9 g/dL 09/19/2025 6:58 PM [facility] BUN/Creatinine Ratio 13.5 7.0 - 25.0 09/19/2025 6:58 PM [facility] Anion Gap 18.5(H) 5.0 - 15.0 mmol/L 09/19/2025 6:58 PM [facility] eGFR 57.6(L) >60.0 mL/min/1.7 3 09/19/2025 6:58 PM [facility] Blood Line / Unknown 09/19/2025 6: 26 PM EST 09/19/2025 6:34 PM EST [facility] - 09/19/2025 6:58 PM EST GFR Categories in Chronic Kidney Disease (CKD) GFR Category GFR (mL/min/1.73) Interpretation G1 90 or greater Normal or high (1) G2 60-89 Mild decrease (1) G3a 45-59 Mild to moderate decrease G3b 30-44 Moderate to severe decrease G4 15-29 Severe decrease G5 14 or less Kidney failure (1)In the absence of evidence of kidney disease, neither GFR category G1 or G2 fulfill the criteria for CKD. eGFR calculation 2020 CKD-EPI creatinine equation, which does not include race as a factor us Nasir Wilson MD LAB BLOOD ORDERABLES Final Result [facility]
[address] [facility] [address] [place] [address], [place] * LABS SCANNED (09/19/2025) [facility] LAB BLOOD ORDERABLES Final Re sult * IMAGING SCANNED (09/02/2025) Anatomical Region Laterality Modality Radiographic Rima ging [facility] Onbase IMG DIAGNOSTIC IMAGING ORDERA BLES Final Result documented in this encounter Visit Diagnoses Diagnosis Nausea and vomiting, unspecified vomiting type- Primary documented in this encounter Administered Medications Inactive Administered Medications - up to 3 most recent administrations Medication Order MAR Action Action Date Dose Rate Site cefTRIAXone (ROCEPHIN) 2,000 mg in sodium chloride 0.9 % 100 mL MBP 2,000 mg, Intravenous, at 200 mL/hr, Administer over 30 Minutes, Once, On Lamar 09/19/25 at 2114, For 1 dose, LR should be paused and flushing of the line with NS is recommended prior to and after completion of ceftriaxone infusion due to incompatibility. Do not co-adminster with calcium-containing solutions. Caution: Look alike/sound alike drug alert, Indications: Uncomplicated CystitisIndications:Uncompli cated Cystitis New Bag 09/19/2025 9:10 PM EST 2,000 mg 200 mL/hr iopamidol (ISOVUE-300) 61 % injection 100 mL 100 mL, Intravenous, Once in Imaging, On Lamar 09/19/25 at 1930, For 1 dose Given 09/19/2025 7:09 PM EST 90 mL ondansetron (ZOFRAN) injection 4 mg 4 mg, Intravenous, Once, On Lamar 09/19/25 at 2114, For 1 dose, If multiple N/V medications ordered, use in the following order: Ondansetron, Prochlorperazine, Promethazine. Use PO unless patient refuses or patient unable to swallow. Given 09/19/2025 9:06 PM EST 4 mg Sodium Chloride (PF) 0.9 % 10 mL 10 mL, Intravenous, As Needed, Line Care, Starting on Lamar 09/19/25 at 1756 sodium chloride 0.9 % bolus 1,000 mL 1,000 mL, Intravenous, at 4,000 mL/hr, Administer over 0.25 Hours, Once, On Lamar 09/19/25 at 2000, For 1 dose New Bag 09/19/2025 8:03 PM EST 1,000 mL 4000 mL/hr documented in this encounter Active and Recently Administered Medications Times are shown in EST. Scheduled Medication Order 09/17/2025 09/18/2025 09/19/2025 cefTRIAXone (ROCEPHIN) 2,000 mg in sodium chloride 0.9 % 100 mL MBP (COMPLETED) 2,000 mg, Intravenous, at 200 mL/hr, Administer over 30 Minutes, Once, On Lamar 09/19/25 at 2114, For 1 dose, LR should be paused and flushing of the line with NS is recommended prior to and after completion of ceftriaxone infusion due to incompatibility. Do not co-adminster with calcium-containing solutions. Caution: Look alike/sound alike drug alert, Indications: Uncomplicated Cystitis 2109 (New Bag - Prov ider: Willie Bhakta RN)2143 (Stopped - Provider: Karol Saxena RN) iopamidol (ISOVUE-300) 61 % injection 100 mL (COMPLETED) 100 mL, Intravenous, Once in Imaging, On Lamar 09/19/25 at 1930, For 1 dose 1908 (Given - Provid er: Tamera Greer) ondansetron (ZOFRAN) injection 4 mg (COMPLETED) 4 mg, Intravenous, Once, On Lamar 09/19/25 at 2114, For 1 dose, If multiple N/V medications ordered, use in the following order: Ondansetron, Prochlorperazine, Promethazine. Use PO unless patient refuses or patient unable to swallow. 2105 (Given - Provid er: Willie Bhakta RN) sodium chloride 0.9 % bolus 1,000 mL (COMPLETED) 1,000 mL, Intravenous, at 4,000 mL/hr, Administer over 0.25 Hours, Once, On Lamar 09/19/25 at 2000, For 1 dose 2002 (New Bag - Prov ider: Willie Bhakta RN)2105 (Stopped - Provider: Aleace Bhakta, RN) PRN Medication Order 09/17/2025 09/18/2025 09/19/2025 Sodium Chloride (PF) 0.9 % 10 mL 10 mL, Intravenous, As Needed, Line Care, Starting on Lamar 09/19/25 at 1756 documented in this encounter Care Teams Certified Medical Transcriptionist Relationship Specialty Start Date End Date Santosh Phipps MD [address] [facility] [address] [facility] [place] [address] PCP - General Internal Medicine 01/25/17 10/01/25 documented as of this encounter
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
--- OUTSIDE RECORDS SUMMARY | 2025-09-26 10:36 | XMS_ITS | Encounter Summary ---
Author Organization [facility] Address [address] [place] [address] Care Team Providers Care Retail Sales Vitamin Consultant Name Role Phone Santosh Phipps MD Primary Care Provider [phone] Reason for Visit * Reason Comments Vomiting Nausea Altered Mental Status * Auth/Cert Specialty Diagnoses / Procedures Referred By Alisha benjamin Referred To Contact Diagnoses Colitis Referral ID Status Reason Start Date Expiration Date Visits Re quested Visits Authorized [id number] 1 1 Encounter Details Date Type Department Care Team (Late st Contact Info) Description 09/26/2025 10:36 AM EST - 10/01/2025 3:45 PM [facility] [place] Hospital Encounter [address] [place] [address] Luciano Thibodeaux MD [address] [place] [address] Regla Herrera II DO [address] [place] [address] Tawanda Liu MD [address] [id number] Azeb Zhang MD [address] [address] Gaudencio Rankin DO [address] [address] Acute sepsis (Primary Dx); Acute colitis; Lactic acidosis; Dehydration; History of diabetes mellitus Discharge Disposition: Home or Self Care Social [...] care, and heating? Not very hard 09/27/2025 [facility] [place] of Occupat ional Health - Occupational Stress [...] things needed for daily living? No 09/27/2025 [facility] Utilities Answer Date Recorded In the past 12 months has [facility] [employer], gas, oil, or water [employer] threatened to shut off services in your [...] GED or equivalent No 09/27/2025 Preferred Language Eritrean 09/27/2025 PHQ-2 Answer Date Recorded Patient Health Questionnaire-2 Score 0 09/27/2025 Comments No Sex and Gender Information Value Date Recorded Sex Assigned at Not on file Legal Sex Female 10:45 AM EDT Gender Identity Not on file Sexual Orientation Not on file documented as of this encounter Last Filed Vital Signs Vital Sign Reading Time Taken Comments Blood Pressure 93/61 10/01/2025 11:29 AM EST Pulse 89 10/01/2025 3:00 PM EST Temperature 36.6 C (97.9 F) 10/01/2025 11:29 AM EST Respiratory Rate 16 10/01/2025 11:29 AM EST Oxygen Saturation 97% 10/01/2025 3:00 PM EST Inhaled Oxygen Concentration - - Weight 75.8 kg (167 lb) 09/30/2025 9:00 AM EST Height 167.6 cm (5' 6 ) 09/26/2025 10:31 AM EST Body Mass Index 26.95 09/26/2025 10:31 AM EST documented in this encounter Functional Status * AUDIT-C Score Answer Date of Assessment Author 0 09/27/2025 8:52 AM Camila Soares RN * Question Answer Date of Assessment Author Q1: How often do you have a drink containing alcohol? Never 09/27/2025 8:52 AM Francisco Soares RN Q2: How many drinks containing alcohol do you have on a typical day when you are drinking? Patient does not drink 09/27/2025 8:52 AM Camila Soares RN Q3: How often do you have six or more drinks on one occasion? Never 09/27/2025 8:52 AM Francisco Soares RN * Over the past 2 weeks, how often have you been bothered by any of the following problems? Question Answer Date of Assessment Author Patient Health Questionnaire-2 Score 0 09/27/2025 8:52 AM Deborah Soares RN * Calculated C-SSRS Risk Score (Lifetime/Recent) Answer Date of Assessment Author No Risk Indicated 09/26/2025 10:36 AM Miguel Siegel ms, RN * [place]ter Suicide Severity Rating Scale (Screener/Recent Self-Report) Question Answer Date of Assessment Author 1. Wish to be (Past 1 Month) No 09/26/2025 10:36 AM Miguel Harper RN 2. Non-Specific Active Suici williams Thoughts (Past 1 Month) No 09/26/2025 10:36 AM Alex Harper RN 6. Suicidal Behavior (Lifetime) No 10:36 AM Miguel Harper RN * Question Answer Date of Assessment Author Little interest or pleasure in doing things Not at all 09/27/2025 8:52 AM Ryan Soares RN Feeling down, depressed, or hopeless Not at all 09/27/2025 8:52 AM Francisco Soares RN documented as of this encounter Discharge Summaries * Gaudencio Rankin DO - 10/01/2025 1:35 PM EST Images from the original note were not included. [facility] Medicine Services DISCHARGE SUMMARY Patient Name: Bella Presley : 1965 Date of Admission: 09/26/2025 10:36 AM Date of Discharge: 10/01/25 Primary Care Physician: Santosh Phipps MD Consults Date and Time Order Name Status Description 09/26/2025 4:22 PM Inpatient Gastroenterology Consult Completed Hospital Course Presenting Problem: Vomiting, diarrhea Active Hospital Problems Diagnosis POA Severe protein-calorie malnutrition [E43] Yes Peptic ulcer [K27.9] Yes Unintentional weight loss [R63.4] Yes Type 2 diabetes mellitus without complications [E11.9] Yes Resolved Hospital Problems Diagnosis Date Resolved POA Colitis [K52.9] 10/01/2025 Yes Severe sepsis [A41.9, R65.20] 10/01/2025 Yes Lactic acidosis [E87.20] 10/01/2025 Yes Hospital Course: Bella Presley is a 60 y.o. female with a PMHx of hypothyroidism, DMII on metformin, GERD who presented with nausea, vomiting, weight loss and acute diarrhea. Found to have colitis, C diff PCR positive, toxin negative but improved with supportive care/oral vancomycin therapy. Patient will continue oral antibiotics upon discharge. Patient will need to follow-up with established transfer coordinator as scheduled. Follow-up with PCP in 1 week. Further details documented below. Colitis and Severe Sepsis -She presented with acute onset diarrhea and pancolitis on CT, preceded by several months of persistent nausea, vomiting, and poor oral intake. On admission, she was hypotensive and met criteria for severe sepsis, with lactic acidosis and leukocytosis. Stool PCR was positive for toxigenic C. difficile, though toxin antigen was negative; empiric oral vancomycin was initiated with clinical improvement in diarrhea and overall status. Ceftriaxone and metronidazole were discontinued as no bacterial source was identified. She received IV fluids and midodrine for hypotension, which was weaned off katherine blood pressure improved. Lactic acidosis and metabolic acidosis resolved with supportive care and sodium bicarbonate. Electrolyte derangements were managed per protocol. She remained afebrile andhemodynamically stable at discharge. Patient will continue oral vancomycin upon discharge. Severe Protein-Calorie Malnutrition and Unintentional Weight Loss -She experienced a 40-50 lb unintentional weight loss over several months, with intake <50% of estimated energy requirements for at least one month, meeting criteria for severe malnutrition. Nutrition consult confirmed severe starvation- related malnutrition, and oral nutrition supplements were initiated with gradual advancement of diet as tolerated. She remained below functional baseline with i mpaired mobility, balance, and endurance, requiring assistance with ADLs and ambulation, and was recommended for long term facility at discharge, though she declined and elected to discharge home with family support. Peptic Ulcer Disease and Chronic GI Symptoms -Records obtained from [facility], with recent EGD in August 2025 revealing duodenal ulcer.Patient will continue PPI twice daily and follow-up with gastroenterology as scheduled. T2DM - Continue home medications Hypokalemia - K+ 3.2 on day of discharge. Will replace prior to DC and recommend repeat BMP in 1 week for repeat K+ check. Discharge Follow Up Recommendations for outpatient labs/diagnostics: Continue oral vancomycin as prescribed. Follow-up with established gastroenterology as scheduled. Follow-up with PCP in 1 week. Continue PPI BID. Monitor blood pressure and heart rate closely at home. Hold home blood pressure medications. Avoid dehydration. Day of Discharge HPI: Patient seen resting comfortably in bed in no acute distress. No acute complaints concerns today. Reports being able to ambulate to the bathroom without any lightheadedness or dizziness. Reports bowel movement this morning. Denies any nausea or vomiting. Vital Signs: Temp: [97.9 ??F (36.6 ??C)-98.4 ??F (36.9 ??C)] 97.9 ??F (36.6 ??C) Heart Rate: [67-101] 81 Resp: [16] 16 BP: (86-118)/(58-70) 93/61 Physical Exam Constitutional: General: She is not in acute distress. Cardiovascular: Rate and Rhythm: Normal rate. Pulses: Normal pulses. Pulmonary: Effort: Pulmonary effort is normal. No respiratory distress. Abdominal: General: There is no distension. Palpations: Abdomen is soft. Tenderness: There is no abdominal tenderness. There is no guarding or rebound. Musculoskeletal: Right lower leg: No edema. Left lower leg: No edema. Skin: General: Skin is warm. Neurological: Mental Status: She is alert and oriented to person, place, and time. Psychiatric: Mood and Affect: Mood normal. Behavior: Behavior normal. Pertinent and/or Most Recent Results LAB RESULTS: Lab 10/01/25 1307 09/30/25 1312 09/29/25 0658 09/28/25 1034 09/27/25 0514 09/26/25 1941 09/26/25 1654 09/26/25 1347 09/26/25 1059 WBC 10.03 11.03* 11.28* 10.18 17.57* -- -- -- 23.86* HEMOGLOBIN 11.0* 10.8* 11.8* 10.8* 10.4* -- -- -- 14.2 HEMATOCRIT 33.8* 34.1 36.3 35.3 32.3* -- -- -- 43.4 PLATELETS 252 262 250 232 211 -- -- -- 374 NEUTROS ABS -- 8.58* 8.46* 7.88* -- -- -- -- 21.71* IMMATURE GRANS (ABS) -- 0.13* 0.17* 0.15* -- -- -- -- 0.26* LYMPHS ABS -- 1.34 1.56 1.24 -- -- -- -- 0.97 MONOS ABS -- 0.83 0.96* 0.75 -- -- -- -- 0.85 EOS ABS -- 0.12 0.07 0.12 -- -- -- -- 0.00 MCV 79.5 79.7 79.1 81.1 80.5 -- -- -- 78.9* PROCALCITONIN -- -- -- -- -- -- -- -- 0.47* LACTATE -- -- -- -- -- 1.6 3.6* 4.6* 5.9* Lab 09/30/25 1312 09/29/25 0658 09/29/25 0055 09/28/25 2046 09/28/25 1034 09/27/25 1138 09/27/25 0708 09/26/25 1059 SODIUM 142 -- -- -- 143 -- 140 138 POTASSIUM 3.7 -- -- 4.4 3.4* 3.3* 3.5 4.2 CHLORIDE 111* -- -- -- 115* -- 113* 99 CO2 22.1 -- -- -- 18.0* -- 16.9* 16.3* ANION GAP 8.9 -- -- -- 10.0 -- 10.1 22.7* BUN 3.2* -- -- -- 4.8* -- 12.8 18.3 CREATININE 0.93 -- -- -- 0.70 -- 0.54* 1.04* EGFR 69.6 -- -- -- 97.9 -- 104.2 60.9 GLUCOSE 132* -- -- -- 106* -- 71 207* CALCIUM 8.2* -- -- -- 7.8* -- 7.7* 9.3 IONIZED CALCIUM -- -- -- -- -- -- -- 1.10* MAGNESIUM 2.0 2.9* -- -- 1.5* -- -- 1.9 PHOSPHORUS 3.1 -- 3.3 -- 1.3* -- -- 3.3 TSH -- -- -- -- -- -- -- 12.900* Lab 09/26/25 1059 TOTAL PROTEIN 7.8 ALBUMIN 3.8 GLOBULIN 4.0 ALT (SGPT) 18 AST (SGOT) 26 BILIRUBIN 0.6 ALK PHOS 110 LIPASE 39 Lab 09/26/25 1210 09/26/25 1059 HSTROP T 24* 24* Lab 09/27/25 1138 09/27/25 0708 IRON -- 33* IRON SATURATION (TSAT) -- 20 TIBC -- 162* TRANSFERRIN -- 109* FERRITIN -- 536.00* FOLATE 8.75 -- VITAMIN B 12 641 -- Lab 09/27/25 1346 09/26/25 1307 PH, ARTERIAL 7.387 -- PCO2, ARTERIAL 31.5* -- PO2 ART 74.9* -- FIO2 21 21 HCO3 ART 18.9* -- BASE EXCESS ART -5.3* -- CARBOXYHEMOGLOBIN 0.9 -- CARBOXYHEMOGLOBIN (VENOUS) -- 0.7 Brief Urine Lab Results (Last result in the past 365 days) Color Clarity Blood Leuk Est Nitrite Protein CREAT Urine HCG 09/26/25 1134 Dark Yellow Cloudy Trace Trace Negative 30 mg/dL (1+) Microbiology Results (last 10 days) Procedure Component Value - Date/Time Clostridioides difficile Toxin - Stool, Per Rectum [[id number]] (Abnormal) Collected: 09/27/251048 Lab Status: Final result Specimen: Stool from Per Rectum Updated: 09/27/25 123 Narrative: The following orders were created for panel order Clostridioides difficile Toxin - Stool, Per Rectum. Procedure Abnormality Status --------- ------ Clostridioides difficile...[[id number]] Abnormal Final result Please view results for these tests on the individual orders. Gastrointestinal Panel, PCR - Stool, Per Rectum [[id number]] (Normal) Collected: 09/27/251048 Lab Status: Final result Specimen: Stool from Per Rectum Updated: 09/27/25 1218 Campylobacter Not Detected Plesiomonas shigelloides Not Detected Salmonella Not Detected Vibrio Not Detected Vibrio cholerae Not Detected Yersinia enterocolitica Not Detected Enteroaggregative E. coli (EAEC) Not Detected Enteropathogenic E. coli (EPEC) Not Detected Enterotoxigenic E. coli (ETEC) lt/st Not Detected Shiga-like toxin-producing E. coli (STEC) stx1/stx2 Not Detected Shigella/Enteroinvasive E. coli (EIEC) Not Detected Cryptosporidium Not Detected Cyclospora cayetanensis Not Detected Entamoeba histolytica Not Detected Giardia lamblia Not Detected Adenovirus F40/41 Not Detected Astrovirus Not Detected Norovirus GI/GII Not Detected Rotavirus A Not Detected Sapovirus (I, II, IV or V) Not Detected Clostridioides difficile Toxin, PCR - Stool, Per Rectum [[id number]] (Abnormal) Collected: 09/27/251048 Lab Status: Final result Specimen: Stool from Per Rectum Updated: 09/27/25 123 Toxigenic C. difficile by PCR Detected Narrative: DNA from a toxigenic strain of C.difficile has been detected. Antigen testing for the presence of free C.difficile toxin is currently in progress, to help determine the clinical significance of this PCR result. Clostridioides difficile toxin Ag, Reflex - Stool, Per Rectum [[id number]] (Normal) Collected: 09/27/251048 Lab Status: Final result Specimen: Stool from Per Rectum Updated: 09/27/25 123 C.diff Toxin Ag Negative Narrative: DNA from a toxigenic strain of C.difficile was detected, although the free toxin itself was not detected. These findings are consistent with C.difficile colonization and may not reflect actual C.difficile infection. Clinical correlation needed. Blood Culture - Blood, Hand, Right [[id number]] (Normal) Collected: 09/26/25 1347 Lab Status: Preliminary result Specimen: Blood from Hand, Right Updated: 09/30/25 1400 Blood Culture No growth at 4 days Narrative: Less than seven (7) mL's of blood was collected. Insufficient quantity may yield false negative results. Blood Culture - Blood, Hand, Left [[id number]] (Normal) Collected: 09/26/25 1335 Lab Status: Preliminary result Specimen: Blood from Hand, Left Updated: 09/30/25 1400 Blood Culture No growth at 4 days Narrative: Less than seven (7) mL's of blood was collected. Insufficient quantity may yield false negative results. Urine Culture - Urine, Straight Cath [[id number]] (Normal) Collected: 09/26/25 1134 Lab Status: Final result Specimen: Urine from Straight Cath Updated: 09/27/25 1042 Urine Culture No growth CT Abdomen Pelvis With Contrast Result Date: 09/26/2025 CT ABDOMEN PELVIS W CONTRAST Date of Exam: 09/26/2025 12:35 PM EST Indication: diffuse abd pain, vomiting, weight loss. Comparison: 09/19/2025 Technique: Axial CT images were obtained of the abdomen and pelvis following the uneventful intravenous administration of iodinated contrast. Reconstructed coronal and sagittal images were also obtained. Automated exposure control and iterative construction methods were used. Findings: Liver: The liver is unremarkable in morphology. No focal liver lesionis seen. No biliary dilation is seen. Gallbladder: Surgically absent. Pancreas: Unremarkable. Spleen: Unremarkable. Adrenal glands: Unremarkable. Genitourinary tract: Both kidneys demonstrate multifocal cortical scarring and lobulated contours. No hydronephrosis is seen. The visualized portions of the ureters and urinary bladder appear unremarkable. Pelvic organs demonstrate no acute abnormality.Gastrointestinal tract: There is widespread colonic wall thickening, most notably involving the proximal/mid colon, concerning for colitis. Duodenal diverticulum is seen. No findings to suggest bowelobstruction. Appendix: The appendix is not identified. Other findings: No free air or free fluid isidentified. No pathologically enlarged lymph nodes are seen. Vascular calcifications are present. The IVC is unremarkable. Bones and soft tissues: No acute osseous lesion is identified. There is a chronic superior endplate fracture of L1. There are mild degenerative changes within the spine. Superficial soft tissues demonstrate no acute abnormality. Lung bases: The visualized lung bases are clear. Impression: 1.Widespread colonic wall thickening, most notably involving the proximal/mid colon, concerning for colitis. 2.Additional findings as detailed above. Electronically Signed: Richar Parker MD 09/26/2025 12:57 PM EST Workstation ID: [id number] CT Head Without Contrast Result Date: 09/26/2025 CT HEAD WO CONTRAST Date of Exam: 09/26/2025 12:35 PM EST Indication: ams. Comparison: None available. Technique: Axial CT images were obtained of the head without contrast administration. Automated exposure control and iterative construction methods were used. Findings: There is no evidence of hemorrhage. There is no mass effect or midline shift. Diffuse brain atrophy with chronic microvascular ischemic changes. There is no extracerebral collection. Ventricles are normal in size and configuration for patient's stated age. Posterior fossa is within normal limits. Calvarium and skull base appear intact. Visualized sinuses show no air fluid levels. Visualized orbits are unremarkable. Impression: 1.No acute intracranial abnormality identified. 2.Diffuse brain atrophy and chronic microvascular ischemic changes. Electronically Signed: Krzysztof Castano MD 09/26/2025 12:49 PM EST Workstation ID: [id number] XR Chest 1 View Result Date: 09/26/2025 XR CHEST 1 VW Date of Exam: 09/26/2025 10:55 AM EST Indication: ams. Comparison: 09/19/2025 Findings: Cardiomediastinal silhouette is unremarkable. No airspace disease, pneumothorax, nor pleural effusion. No acute osseous abnormality identified. Impression: No acute cardiopulmonary abnormality Electronically Signed: Shannon Gray MD 09/26/2025 11:28 AM EST Workstation ID: [id number] I have personally reviewed the therapy plans: [x] PT/OT/ ST Therapy Plans Plan for Follow-up of Pending Labs/Results: Will follow up Pending Labs Order Current Status Blood Culture - Blood, Hand, Left Preliminary result Blood Culture - Blood, Hand, Right Preliminary result Discharge Details Discharge Medications PAUSE taking these medications Instructions Start Date lisinopril 2.5 MG tablet Wait to take this until your doctor or other care provider tells you to start again. Commonly known as: PRINIVIL,ZESTRIL 2.5 mg, Daily traMADol 50 MG tablet Wait to take this until your doctor or other care provider tells you to start again. Commonly known as: ULTRAM 50 mg, Every 6 Hours PRN traZODone 100 MG tablet Wait to take this until your doctor or other care provider tells you to start again. Commonly known as: DESYREL 100 mg New Medications Instructions Start Date vancomycin 125 MG capsule Commonly known as: VANCOCIN Take 1 capsule by mouth Every 6 (Six) Hours for 24 doses. Continue These Medications Instructions Start Date aspirin 81 MG EC tablet 81 mg, Daily atorvastatin 40 MG tablet Commonly known as: LIPITOR 40 mg, Nightly baclofen 10 MG tablet Commonly known as: LIORESAL 10 mg, Oral, 3 Times Daily Fosamax 70 MG tablet Generic drug: alendronate 70 mg, Every 7 Days levothyroxine 150 MCG tablet Commonly known as: SYNTHROID, LEVOTHROID 88 mcg, Daily meclizine 25 MG chewable tablet chewable tablet 25 mg, 3 Times Daily PRN metFORMIN ER 500 MG 24 hr tablet Commonly known as: GLUCOPHAGE-XR 500 mg, Daily With Breakfast pantoprazole 40 MG EC tablet Commonly known as: Protonix 40 mg, Oral, 2 Times Daily, 30 to 60 minutes prior to first meal of the day and last meal of the day promethazine 25 MG tablet Commonly known as: PHENERGAN 25 mg, Every 6 Hours PRN Ubrelvy 100 MG tablet Generic drug: ubrogepant Take by mouth. Vraylar 1.5 MG capsule capsule Generic drug: Cariprazine HCl 1.5 mg, Daily Allergies Allergen Reactions Imitrex [Sumatriptan] Penicillins Topamax [Topiramate] Discharge Disposition: Home or Self Care Diet: Hospital: Diet Order Procedures Diet: Regular/House; Fluid Consistency: Thin (IDDSI 0) Standing Status: Standing Number of Occurrences: 1 Diets:: Regular/House Fluid Consistency:: Thin (IDDSI 0) Activity: As tolerated Restrictions or Other Recommendations: As tolerated CODE STATUS: Code Status and Medical Interventions: CPR (Attempt to Resuscitate); Full Support Ordered at: 09/26/25 1689 Code Status (Patient has no pulse and is not breathing): CPR (Attempt to Resuscitate) Medical Interventions (Patient has pulse or is breathing): Full Support Future Appointments Date Time Provider Department Center 12/31/2025 10:45 AM Breanne Peterson APRN [facility] Additional Instructions for the Follow-ups that You Need to Schedule Discharge Follow-up with PCP As directed Currently Documented PCP: Santosh Phipps MD PCP Follow Up Details: Follow-up with PCP in 1 week Discharge Follow-up with Specialty: Follow-up with gastroenterology as scheduled As directed Specialty: Follow-up with gastroenterology as scheduled Gaudencio Rankin DO 10/01/25 Time Spent on Discharge: I spent 35 minutes on this discharge activity which included: [id number] with the patient, reviewing the data in the system, coordination of the care with the nursing staff as well as consultants, documentation, and entering orders. documented in this encounter Discharge Instructions * Attachments The following attachments cannot be sent through Care Everywhere. * Vandetanib Tablets (Eritrean) * Metabolic Acidosis (Eritrean) * Peptic Ulcer Aotd-qh-Quya (Eritrean) * Not Eating Enough Protein Fat and Calories (Protein-Energy Malnutrition): What to Know (Eritrean) * Diarrhea Adult Ezga-rg-Bvgm (Eritrean) * Inflammation of the Colon (Colitis): What to Know (Eritrean) documented in this encounter Medications at Time of Discharge aspirin 81 MG EC tablet Take 1 tablet by mouth Daily. 06/20/2025 atorvastatin (LIPITOR) 40 MG tablet Take 1 tablet by mouth Every Night. baclofen (LIORESAL) 10 MG tablet Take 1 tablet by mouth 3 (Three) Times a Day. Cariprazine HCl (Vraylar) 1.5 MG capsule capsule Take 1 capsule by mouth Daily. Fosamax 70 MG tablet Take 1 tablet by mouth Every 7 (Seven) Days. 04/11/2025 levothyroxine (SYNTHROID, LEVOTHROID) 150 MCG tablet Take 88 mcg by mouth Daily. lisinopril (PRINIVIL,ZESTRIL ) 2.5 MG tablet Take 1 tablet by mouth Daily. 04/11/2025 meclizine 25 MG chewable tablet chewable tablet Chew 1 tablet 3 (Three) Times a Day As Needed. metFORMIN ER (GLUCOPHAGE-XR) 500 MG 24 hr tablet Take 1 tablet by mouth Daily With Breakfast. 04/11/2025 pantoprazole (Protonix) 40 MG EC tabletIndications :Nausea and vomiting, unspecified vomiting type Take 1 tablet by mouth 2 (Two) Times a Day. 30 to 60 minutes prior to first meal of the day and last meal of the day 180 tablet 3 09/26/2025 promethazine (PHENERGAN) 25 MG tablet Take 25 mg by mouth Every 6 (Six) Hours As Needed for Nausea or Vomiting. traMADol (ULTRAM) 50 MG tablet Take 1 tablet by mouth Every 6 (Six) Hours As Needed for Moderate Pain. traZODone (DESYREL) 100 MG tablet Take 1 tablet by mouth. 06/20/2025 ubrogepant (ubrogepant) 100 MG tablet Take by mouth. vancomycin (VANCOCIN) 125 MG capsuleIndication s:Clostridioides Difficile Infection Take 1 capsule by mouth Every 6 (Six) Hours for 24 doses. 24 capsule 10/01/2025 2:48 PM EST 09/30/2025 documented as of this encounter Progress Notes * Azeb Zhang MD - 09/30/2025 7:19 AM EST Images from the original note were not included. [facility] Medicine Services PROGRESS NOTE Patient Name: Bella Presley : 1965 Date of Admission: 09/26/2025 Primary Care Physician: Santosh Phipps MD Subjective Subjective CC: weakness, diarrhea HPI: Patient only had 1 bowel movement in last 24 hours Feeling at baseline She feels that the OSH had already answered a lot of her questions about weight loss as to etiology- but she can't remember exactly what they found No h/o C diff Overall, feels she is moving well and hopeful for home tomorrow D/w nurse in evening and patient tolerating regular diet (was previously on liquid diet) Objective Objective Vital Signs: Temp: [97.4 ??F (36.3 ??C)-98.2 ??F (36.8 ??C)] 98.2 ??F (36.8 ??C) Heart Rate: [59-101] 101 Resp: [16] 16 BP: (101-118)/(60-79) 118/70 Physical Exam: Constitutional: No acute distress, awake, alert female sitting up in recliner Respiratory: Clear to auscultation bilaterally, respiratory effort normal on room air Cardiovascular: RRR, no murmurs, rubs, or gallops Gastrointestinal: Soft, nontender, nondistended Musculoskeletal: Muscle tone within normal limits, no joint effusions appreciated Psychiatric: Appropriate affect, cooperative Neurologic: Alert and oriented but unsure as to recent medical events/work-up, facial movements symmetric and spontaneous movement of all 4 extremities grossly equal bilaterally, speech clear Skin: No rashes Results Reviewed: LAB RESULTS: Lab 09/30/25 1312 09/29/25 0658 09/28/25 1034 09/27/25 0514 09/26/25 1941 09/26/25 1654 09/26/25 1347 09/26/25 1210 09/26/25 1059 WBC 11.03* 11.28* 10.18 17.57* -- -- -- -- 23.86* HEMOGLOBIN 10.8* 11.8* 10.8* 10.4* -- -- -- -- 14.2 HEMATOCRIT 34.1 36.3 35.3 32.3* -- -- -- -- 43.4 PLATELETS 262 250 232 211 -- -- -- -- 374 NEUTROS ABS 8.58* 8.46* 7.88* -- -- -- -- -- 21.71* IMMATURE GRANS (ABS) 0.13* 0.17* 0.15* -- -- -- -- -- 0.26* LYMPHS ABS 1.34 1.56 1.24 -- -- -- -- -- 0.97 MONOS ABS 0.83 0.96* 0.75 -- -- -- -- -- 0.85 EOS ABS 0.12 0.07 0.12 -- -- -- -- -- 0.00 MCV 79.7 79.1 81.1 80.5 -- -- -- -- 78.9* PROCALCITONIN -- -- -- -- -- -- -- -- 0.47* LACTATE -- -- -- -- 1.6 3.6* 4.6* -- 5.9* HSTROP T -- -- -- -- -- -- -- 24* 24* Lab 09/30/25 1312 09/29/25 0658 09/29/25 0055 09/28/25 2046 09/28/25 1034 09/27/25 1138 09/27/25 0708 09/26/25 1059 SODIUM 142 -- -- -- 143 -- 140 138 POTASSIUM 3.7 -- -- 4.4 3.4* 3.3* 3.5 4.2 CHLORIDE 111* -- -- -- 115* -- 113* 99 CO2 22.1 -- -- -- 18.0* -- 16.9* 16.3* ANION GAP 8.9 -- -- -- 10.0 -- 10.1 22.7* BUN 3.2* -- -- -- 4.8* -- 12.8 18.3 CREATININE 0.93 -- -- -- 0.70 -- 0.54* 1.04* EGFR 69.6 -- -- -- 97.9 -- 104.2 60.9 GLUCOSE 132* -- -- -- 106* -- 71 207* CALCIUM 8.2* -- -- -- 7.8* -- 7.7* 9.3 IONIZED CALCIUM -- -- -- -- -- -- -- 1.10* MAGNESIUM 2.0 2.9* -- -- 1.5* -- -- 1.9 PHOSPHORUS 3.1 -- 3.3 -- 1.3* -- -- 3.3 TSH -- -- -- -- -- -- -- 12.900* Lab 09/26/25 1059 TOTAL PROTEIN 7.8 ALBUMIN 3.8 GLOBULIN 4.0 ALT (SGPT) 18 AST (SGOT) 26 BILIRUBIN 0.6 ALK PHOS 110 LIPASE 39 Lab 09/26/25 1210 09/26/25 1059 HSTROP T 24* 24* Lab 09/27/25 1138 09/27/25 0708 IRON -- 33* IRON SATURATION (TSAT) -- 20 TIBC -- 162* TRANSFERRIN -- 109* FERRITIN -- 536.00* FOLATE 8.75 -- VITAMIN B 12 641 -- Lab 09/27/25 1346 09/26/25 1307 PH, ARTERIAL 7.387 -- PCO2, ARTERIAL 31.5* -- PO2 ART 74.9* -- FIO2 21 21 HCO3 ART 18.9* -- BASE EXCESS ART -5.3* -- CARBOXYHEMOGLOBIN 0.9 -- CARBOXYHEMOGLOBIN (VENOUS) -- 0.7 Brief Urine Lab Results (Last result in the past 365 days) Color Clarity Blood Leuk Est Nitrite Protein CREAT Urine HCG 09/26/25 1134 Dark Yellow Cloudy Trace Trace Negative 30 mg/dL (1+) Microbiology Results Abnormal Procedure Component Value - Date/Time Clostridioides difficile Toxin - Stool, Per Rectum [[id number]] (Abnormal) Collected: 09/27/25 104 Lab Status: Final result Specimen: Stool from Per Rectum Updated: 09/27/25 1233 Narrative: The following orders were created for panel order Clostridioides difficile Toxin - Stool, Per Rectum. Procedure Abnormality Status --------- ------ Clostridioides difficile...[[id number]] Abnormal Final result Please view results for these tests on the individual orders. Clostridioides difficile Toxin, PCR - Stool, Per Rectum [[id number]] (Abnormal) Collected: 09/27/25 1049 Lab Status: Final result Specimen: Stool from Per Rectum Updated: 09/27/25 1233 Toxigenic C. difficile by PCR Detected Narrative: DNA from a toxigenic strain of C.difficile has been detected. Antigen testing for the presence of free C.difficile toxin is currently in progress, to help determine the clinical significance of this PCR result. No radiology results from the last 24 hrs I have personally reviewed the therapy plans: [] PT/OT/ ST Therapy Plans Current medications: Scheduled Meds:aspirin, 81 mg, Oral, Daily atorvastatin, 40 mg, Oral, Nightly Cariprazine HCl, 1.5 mg, Oral, Daily castor oil-balsam anselmo, 1 Application, Topical, Q12H enoxaparin sodium, 40 mg, Subcutaneous, Nightly famotidine, 20 mg, Intravenous, Q12H [START ON 10/01/2025] levothyroxine, 100 mcg, Oral, Q AM miconazole, 1 Application, Topical, Q12H sodium chloride, 10 mL, Intravenous, Q12H vancomycin, 125 mg, Oral, Q6H Continuous Infusions:Pharmacy Consult, PRN Meds:. acetaminophen OR acetaminophen OR acetaminophen senna-docusate sodium AND polyethylene glycol AND bisacodyl AND bisacodyl Calcium Replacement - Follow Nurse / BPA Driven Protocol dextrose dextrose glucagon (human recombinant) influenza vaccine Magnesium Standard Dose Replacement - Follow Nurse / BPA Driven Protocol nitroglycerin ondansetron ODT OR ondansetron Pharmacy Consult Phosphorus Replacement - Follow Nurse / BPA Driven Protocol Potassium Replacement - Follow Nurse / BPA Driven Protocol Sodium Chloride (PF) sodium chloride sodium chloride Assessment & Plan Assessment & Plan Active Hospital Problems Diagnosis POA Colitis [K52.9] Yes Severe protein-calorie malnutrition [E43] Yes Severe sepsis [A41.9, R65.20] Yes Lactic acidosis [E87.20] Yes Peptic ulcer [K27.9] Yes Unintentional weight loss [R63.4] Yes Type 2 diabetes mellitus without complications [E11.9] Yes Resolved Hospital Problems No resolved problems to display. Brief Hospital Course to date: Bella Presley is a 60 y.o. female w hypothyroidism, DMII on metformin, GERD who presented with nausea, vomiting, weight loss but acute diarrhea. Found to have colitis, C diff PCR positive, toxin negative but improved w supportive care/vancomycin therapy. 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 future risk -d/c ceftriaxone/flagyl given lack of indication/no bacterial source ever identified as causative -will try to wean off midodrine given overall improvement, d/c today Chronic nausea/vomiting/weight loss complaints -d/w nursing to facilitate obtaining records to facilitate finalized GI opinion, following up now -was on PPI BID, possibly for ulcers?, which has been on hold w concern for above C diff risk so will need to make final plan when EGD obtained DMII - meeting goals without intervention so OK to dc checks Expected Discharge Location and Transportation: SNF recs but patient declined in favor of home Expected Discharge 10/01 (Discharge date is tentative pending patient's medical condition and is subject to change) Expected Discharge Date: 10/01/2025; Expected Discharge Time: VTE Prophylaxis: Pharmacologic VTE prophylaxis orders are present. AM-PAC 6 Clicks Score (PT): 18 (09/30/25 1438) CODE STATUS: Code Status and Medical Interventions: CPR (Attempt to Resuscitate); Full Support Ordered at: 09/26/25 4134 Code Status (Patient has no pulse and is not breathing): CPR (Attempt to Resuscitate) Medical Interventions (Patient has pulse or is breathing): Full Support Azeb Zhang MD 09/30/25 * Tawanda Liu MD - 09/29/2025 12:21 PM EST Images from the original note were not included. [facility] Medicine Services PROGRESS NOTE Patient Name: Bella Presley : 1965 Date of Admission: 09/26/2025 Primary Care Physician: Santosh Phipps MD Subjective Subjective CC: Weakness, diarrhea HPI: Resting in bed in no acute distress and tells me that she feels better. Patient's daughter is also present at the bedside. Evidently diarrhea has improved significantly and she has had 1 bowel movement since yesterday evening. Denies any fever or chills. No chest pain or palpitation or shortness ofbreath. No nausea or vomiting. Patient had good appetite for breakfast this morning. Objective Objective Vital Signs: Temp: [98.1 ??F (36.7 ??C)-98.6 ??F (37 ??C)] 98.6 ??F (37 ??C) Heart Rate: [50-76] 56 Resp: [16] 16 BP: (96-118)/(53-71) 111/67 Physical Exam: Constitutional: No acute distress HENT: NCAT, mucous membranes moist Respiratory: Clear to auscultation bilaterally, respiratory effort normal Cardiovascular: RRR, no murmurs, rubs, or gallops Gastrointestinal: Positive bowel sounds, soft, nontender, nondistended Musculoskeletal: No bilateral ankle edema Psychiatric: Appropriate affect, cooperative Neurologic: Awake, alert, follows commands, speech clear Skin: No rashes Results Reviewed: LAB RESULTS: Lab 09/29/25 0658 09/28/25 1034 09/27/25 0514 09/26/25 1941 09/26/25 1654 09/26/25 1347 09/26/25 1210 09/26/25 1059 WBC 11.28* 10.18 17.57* -- -- -- -- 23.86* HEMOGLOBIN 11.8* 10.8* 10.4* -- -- -- -- 14.2 HEMATOCRIT 36.3 35.3 32.3* -- -- -- -- 43.4 PLATELETS 250 232 211 -- -- -- -- 374 NEUTROS ABS 8.46* 7.88* -- -- -- -- -- 21.71* IMMATURE GRANS (ABS) 0.17* 0.15* -- -- -- -- -- 0.26* LYMPHS ABS 1.56 1.24 -- -- -- -- -- 0.97 MONOS ABS 0.96* 0.75 -- -- -- -- -- 0.85 EOS ABS 0.07 0.12 -- -- -- -- -- 0.00 MCV 79.1 81.1 80.5 -- -- -- -- 78.9* PROCALCITONIN -- -- -- -- -- -- -- 0.47* LACTATE -- -- -- 1.6 3.6* 4.6* -- 5.9* HSTROP T -- -- -- -- -- -- 24* 24* Lab 09/29/25 0658 09/29/25 0055 09/28/25 2046 09/28/25 1034 09/27/25 1138 09/27/25 0708 09/26/25 1059 SODIUM -- -- -- 143 -- 140 138 POTASSIUM -- -- 4.4 3.4* 3.3* 3.5 4.2 CHLORIDE -- -- -- 115* -- 113* 99 CO2 -- -- -- 18.0* -- 16.9* 16.3* ANION GAP -- -- -- 10.0 -- 10.1 22.7* BUN -- -- -- 4.8* -- 12.8 18.3 CREATININE -- -- -- 0.70 -- 0.54* 1.04* EGFR -- -- -- 97.9 -- 104.2 60.9 GLUCOSE -- -- -- 106* -- 71 207* CALCIUM -- -- -- 7.8* -- 7.7* 9.3 IONIZED CALCIUM -- -- -- -- -- -- 1.10* MAGNESIUM 2.9* -- -- 1.5* -- -- 1.9 PHOSPHORUS -- 3.3 -- 1.3* -- -- 3.3 TSH -- -- -- -- -- -- 12.900* Lab 09/26/25 1059 TOTAL PROTEIN 7.8 ALBUMIN 3.8 GLOBULIN 4.0 ALT (SGPT) 18 AST (SGOT) 26 BILIRUBIN 0.6 ALK PHOS 110 LIPASE 39 Lab 09/26/25 1210 09/26/25 1059 HSTROP T 24* 24* Lab 09/27/25 1138 09/27/25 0708 IRON -- 33* IRON SATURATION (TSAT) -- 20 TIBC -- 162* TRANSFERRIN -- 109* FERRITIN -- 536.00* FOLATE 8.75 -- VITAMIN B 12 641 -- Lab 09/27/25 1346 09/26/25 1307 PH, ARTERIAL 7.387 -- PCO2, ARTERIAL 31.5* -- PO2 ART 74.9* -- FIO2 21 21 HCO3 ART 18.9* -- BASE EXCESS ART -5.3* -- CARBOXYHEMOGLOBIN 0.9 -- CARBOXYHEMOGLOBIN (VENOUS) -- 0.7 Brief Urine Lab Results (Last result in the past 365 days) Color Clarity Blood Leuk Est Nitrite Protein CREAT Urine HCG 09/26/25 1134 Dark Yellow Cloudy Trace Trace Negative 30 mg/dL (1+) Microbiology Results Abnormal Procedure Component Value - Date/Time Clostridioides difficile Toxin - Stool, Per Rectum [[id number]] (Abnormal) Collected: 09/27/251048 Lab Status: Final result Specimen: Stool from Per Rectum Updated: 09/27/251232 Narrative: The following orders were created for panel order Clostridioides difficile Toxin - Stool, Per Rectum. Procedure Abnormality Status --------- ------ Clostridioides difficile...[[id number]] Abnormal Final result Please view results for these tests on the individual orders. Clostridioides difficile Toxin, PCR - Stool, Per Rectum [[id number]] (Abnormal) Collected: 09/27/251048 Lab Status: Final result Specimen: Stool from Per Rectum Updated: 09/27/251232 Toxigenic C. difficile by PCR Detected Narrative: DNA from a toxigenic strain of C.difficile has been detected. Antigen testing for the presence of free C.difficile toxin is currently in progress, to help determine the clinical significance of this PCR result. No radiology results from the last 24 hrs I have personally reviewed the therapy plans: [] PT/OT/ ST Therapy Plans Current medications: Scheduled Meds:atorvastatin, 40 mg, Oral, Nightly Cariprazine HCl, 1.5 mg, Oral, Daily castor oil-balsam anselmo, 1 Application, Topical, Q12H cefTRIAXone, 2,000 mg, Intravenous, Q24H enoxaparin sodium, 40 mg, Subcutaneous, Nightly insulin lispro, 2-7 Units, Subcutaneous, 4x Daily AC & at Bedtime levothyroxine, 88 mcg, Oral, Q AM metroNIDAZOLE, 500 mg, Intravenous, Q8H miconazole, 1 Application, Topical, Q12H midodrine, 10 mg, Oral, TID AC pantoprazole, 40 mg, Intravenous, BID AC sodium bicarbonate, 650 mg, Oral, BID sodium chloride, 10 mL, Intravenous, Q12H sodium chloride, 1,000 mL, Intravenous, Once vancomycin, 125 mg, Oral, Q6H Continuous Infusions:Pharmacy Consult, PRN Meds:. acetaminophen OR acetaminophen OR acetaminophen senna-docusate sodium AND polyethylene glycol AND bisacodyl AND bisacodyl Calcium Replacement - Follow Nurse / BPA Driven Protocol dextrose dextrose glucagon (human recombinant) influenza vaccine Magnesium Standard Dose Replacement - Follow Nurse / BPA Driven Protocol nitroglycerin ondansetron ODT OR ondansetron Pharmacy Consult Phosphorus Replacement - Follow Nurse / BPA Driven Protocol Potassium Replacement - Follow Nurse / BPA Driven Protocol Sodium Chloride (PF) sodium chloride sodium chloride Assessment & Plan Assessment & Plan Active Hospital Problems Diagnosis POA Colitis [K52.9] Yes Severe sepsis [A41.9, R65.20] Yes Lactic acidosis [E87.20] Yes Peptic ulcer [K27.9] Yes Unintentional weight loss [R63.4] Yes Type 2 diabetes mellitus without complications [E11.9] Yes Resolved Hospital Problems No resolved problems to display. Brief Hospital Course to date: Bella Presley is a 60 y.o. female patient with past medical history significant for hypothyroidism, hypertension, diabetes mellitus on metformin, GERD. Patient has had nausea vomiting and very low appetite and also 40 pound weight loss since several months ago. Patient also has had diarrhea forthe past 2 days. Patient was sent from the office of GI to be admitted for colitis. Diffuse Colitis Lactic Acidosis - Patient was tested for C. difficile. PCR test is positive although toxin antigen was negative. Patient was empirically put on antibiotic treatment with suspicion of C. difficile. Patient has clinically improved. For the time being we will continue. GI is also following. - Lactic acid normalized. Hypotension - Patient has received boluses with slight improvement in blood pressure. Patient also is on continuous IV fluids which will be continued. Patient was started on midodrine also. - Blood pressure has improved significantly and we will continue monitoring it. Metabolic acidosis -Start the patient on sodium bicarb tablets. - ABG which was done on 09/27/2025 shows resolution of metabolic acidosis. Electrolyte derangement - Replace per protocol Nausea vomiting for the past several months - Etiology is not known at this point. - Patient has not have any nausea or vomiting since admission. GI following. Recent diagnosis PUD -EGD [facility] w/ presence of ulcers likely NSAID related. -Will continue PPI twice daily DM2 -SSI Expected Discharge Location and Transportation: To be determined Expected Discharge to be determined Expected discharge date/ time has not been documented. VTE Prophylaxis: Pharmacologic VTE prophylaxis orders are present. AM-PAC 6 Clicks Score (PT): 18 (09/29/25 0812) CODE STATUS: Code Status and Medical Interventions: CPR (Attempt to Resuscitate); Full Support Ordered at: 09/26/25 1539 Code Status (Patient has no pulse and is not breathing): CPR (Attempt to Resuscitate) Medical Interventions (Patient has pulse or is breathing): Full Support Tawanda Liu MD 09/29/25 * Tawanda Liu MD - 09/28/2025 3:56 PM EST Images from the original note were not included. [facility] Medicine Services PROGRESS NOTE Patient Name: Bella Presley : 1965 Date of Admission: 09/26/2025 Primary Care Physician: Santosh Phipps MD Subjective Subjective CC: Weakness, diarrhea HPI: Resting in bed in no acute distress and tells me that she feels better. Patient's daughter is also present at the bedside. Patient still has diarrhea with multiple bowel movements over the past 24 hours. Denies any fever or chills. No chest pain or palpitation or shortness of breath. No nausea or vo miting. Patient had good appetite for breakfast this morning. Objective Objective Vital Signs: Temp: [97.7 ??F (36.5 ??C)-98.4 ??F (36.9 ??C)] 97.9 ??F (36.6 ??C) Heart Rate: [53-74] 74 Resp: [16-18] 16 BP: (83-107)/(31-65) 96/53 Physical Exam: Constitutional: No acute distress HENT: NCAT, mucous membranes moist Respiratory: Clear to auscultation bilaterally, respiratory effort normal Cardiovascular: RRR, no murmurs, rubs, or gallops Gastrointestinal: Positive bowel sounds, soft, nontender, nondistended Musculoskeletal: No bilateral ankle edema Psychiatric: Appropriate affect, cooperative Neurologic: Awake, alert, follows commands, speech clear Skin: No rashes Results Reviewed: LAB RESULTS: Lab 09/28/25 1034 09/27/25 0514 09/26/25 1941 09/26/25 1654 09/26/25 1347 09/26/25 1210 09/26/25 1059 WBC 10.18 17.57* -- -- -- -- 23.86* HEMOGLOBIN 10.8* 10.4* -- -- -- -- 14.2 HEMATOCRIT 35.3 32.3* -- -- -- -- 43.4 PLATELETS 232 211 -- -- -- -- 374 NEUTROS ABS 7.88* -- -- -- -- -- 21.71* IMMATURE GRANS (ABS) 0.15* -- -- -- -- -- 0.26* LYMPHS ABS 1.24 -- -- -- -- -- 0.97 MONOS ABS 0.75 -- -- -- -- -- 0.85 EOS ABS 0.12 -- -- -- -- -- 0.00 MCV 81.1 80.5 -- -- -- -- 78.9* PROCALCITONIN -- -- -- -- -- -- 0.47* LACTATE -- -- 1.6 3.6* 4.6* -- 5.9* HSTROP T -- -- -- -- -- 24* 24* Lab 09/28/25 1034 09/27/25 1138 09/27/25 0708 09/26/25 1059 SODIUM 143 -- 140 138 POTASSIUM 3.4* 3.3* 3.5 4.2 CHLORIDE 115* -- 113* 99 CO2 18.0* -- 16.9* 16.3* ANION GAP 10.0 -- 10.1 22.7* BUN 4.8* -- 12.8 18.3 CREATININE 0.70 -- 0.54* 1.04* EGFR 97.9 -- 104.2 60.9 GLUCOSE 106* -- 71 207* CALCIUM 7.8* -- 7.7* 9.3 IONIZED CALCIUM -- -- -- 1.10* MAGNESIUM 1.5* -- -- 1.9 PHOSPHORUS 1.3* -- -- 3.3 TSH -- -- -- 12.900* Lab 09/26/25 1059 TOTAL PROTEIN 7.8 ALBUMIN 3.8 GLOBULIN 4.0 ALT (SGPT) 18 AST (SGOT) 26 BILIRUBIN 0.6 ALK PHOS 110 LIPASE 39 Lab 09/26/25 1210 09/26/25 1059 HSTROP T 24* 24* Lab 09/27/25 1138 09/27/25 0708 IRON -- 33* IRON SATURATION (TSAT) -- 20 TIBC -- 162* TRANSFERRIN -- 109* FERRITIN -- 536.00* FOLATE 8.75 -- VITAMIN B 12 641 -- Lab 09/27/25 1346 09/26/25 1307 PH, ARTERIAL 7.387 -- PCO2, ARTERIAL 31.5* -- PO2 ART 74.9* -- FIO2 21 HCO3 ART 18.9* -- BASE EXCESS ART -5.3* -- CARBOXYHEMOGLOBIN 0.9 -- CARBOXYHEMOGLOBIN (VENOUS) -- 0.7 Brief Urine Lab Results (Last result in the past 365 days) Color Clarity Blood Leuk Est Nitrite Protein CREAT Urine HCG 09/26/25 1134 Dark Yellow Cloudy Trace Trace Negative 30 mg/dL (1+) Microbiology Results Abnormal Procedure Component Value - Date/Time Clostridioides difficile Toxin - Stool, Per Rectum [[id number]] (Abnormal) Collected: 09/27/25 1049 Lab Status: Final result Specimen: Stool from Per Rectum Updated: 09/27/25 1233 Narrative: The following orders were created for panel order Clostridioides difficile Toxin - Stool, Per Rectum. Procedure Abnormality Status --------- ------ Clostridioides difficile...[[id number]] Abnormal Final result Please view results for these tests on the individual orders. Clostridioides difficile Toxin, PCR - Stool, Per Rectum [[id number]] (Abnormal) Collected: 09/27/25 1049 Lab Status: Final result Specimen: Stool from Per Rectum Updated: 09/27/25 1233 Toxigenic C. difficile by PCR Detected Narrative: DNA from a toxigenic strain of C.difficile has been detected. Antigen testing for the presence of free C.difficile toxin is currently in progress, to help determine the clinical significance of this PCR result. No radiology results from the last 24 hrs I have personally reviewed the therapy plans: [] PT/OT/ ST Therapy Plans Current medications: Scheduled Meds:atorvastatin, 40 mg, Oral, Nightly Cariprazine HCl, 1.5 mg, Oral, Daily castor oil-balsam anselmo, 1 Application, Topical, Q12H cefTRIAXone, 2,000 mg, Intravenous, Q24H enoxaparin sodium, 40 mg, Subcutaneous, Nightly insulin lispro, 2-7 Units, Subcutaneous, 4x Daily AC & at Bedtime levothyroxine, 88 mcg, Oral, Q AM magnesium sulfate, 2 g, Intravenous, Q2H metroNIDAZOLE, 500 mg, Intravenous, Q8H miconazole, 1 Application, Topical, Q12H midodrine, 10 mg, Oral, TID AC pantoprazole, 40 mg, Intravenous, BID AC potassium chloride ER, 40 mEq, Oral, Q4H potassium phosphate, 15 mmol, Intravenous, Q3H sodium bicarbonate, 650 mg, Oral, BID sodium chloride, 10 mL, Intravenous, Q12H sodium chloride, 1,000 mL, Intravenous, Once vancomycin, 125 mg, Oral, Q6H Continuous Infusions:Pharmacy Consult, sodium chloride, 125 mL/hr, Last Rate: 125 mL/hr (09/27/25 8261) PRN Meds:. acetaminophen OR acetaminophen OR acetaminophen senna-docusate sodium AND polyethylene glycol AND bisacodyl AND bisacodyl Calcium Replacement - Follow Nurse / BPA Driven Protocol dextrose dextrose glucagon (human recombinant) influenza vaccine Magnesium Standard Dose Replacement - Follow Nurse / BPA Driven Protocol nitroglycerin ondansetron ODT OR ondansetron Pharmacy Consult Phosphorus Replacement - Follow Nurse / BPA Driven Protocol Potassium Replacement - Follow Nurse / BPA Driven Protocol Sodium Chloride (PF) sodium chloride sodium chloride Assessment & Plan Assessment & Plan Active Hospital Problems Diagnosis POA Colitis [K52.9] Yes Severe sepsis [A41.9, R65.20] Yes Lactic acidosis [E87.20] Yes Peptic ulcer [K27.9] Yes Unintentional weight loss [R63.4] Yes Type 2 diabetes mellitus without complications [E11.9] Yes Resolved Hospital Problems No resolved problems to display. Brief Hospital Course to date: Bella Presley is a 60 y.o. female patient with past medical history significant for hypothyroidism, hypertension, diabetes mellitus on metformin, GERD. Patient has had nausea vomiting and very low appetite and also 40 pound weight loss since several months ago. Patient also has had diarrhea forthe past 2 days. Patient was sent from the office of GI to be admitted for colitis. Diffuse Colitis Lactic Acidosis - Patient was tested for C. difficile. PCR test is positive although toxin antigen was negative. Patient was empirically put on antibiotic treatment with suspicion of C. difficile. Patient has clinically improved. For the time being we will continue. GI is also following. Hypotension - Patient has received boluses with slight improvement in blood pressure. Patient also is on continuous IV fluids which will be continued. Patient was started on midodrine also. - Blood pressure has improved and we will continue monitoring it. Metabolic acidosis -Start the patient on sodium bicarb tablets. - ABG which was done this afternoon shows resolution of metabolic acidosis. Electrolyte derangement - Replace per protocol Nausea vomiting for the past several months - Etiology is not known at this point. - Patient did not have any nausea or vomiting since admission. Recent diagnosis PUD -EGD [facility] w/ presence of ulcers likely NSAID related. Has been on BID PPI, but only intermittently tolerating. Will start IV PPI for now. DM2 -SSI Expected Discharge Location and Transportation: To be determined Expected Discharge to be determined Expected discharge date/ time has not been documented. VTE Prophylaxis: Pharmacologic VTE prophylaxis orders are present. AM-PAC 6 Clicks Score (PT): 16 (09/28/25 0800) CODE STATUS: Code Status and Medical Interventions: CPR (Attempt to Resuscitate); Full Support Ordered at: 09/26/25 1567 Code Status (Patient has no pulse and is not breathing): CPR (Attempt to Resuscitate) Medical Interventions (Patient has pulse or is breathing): Full Support Tawanda Liu MD 09/28/25 * Tawanda Liu MD - 09/27/2025 2:50 PM EST Images from the original note were not included. [facility] Medicine Services PROGRESS NOTE Patient Name: Bella Presley : 1965 Date of Admission: 09/26/2025 Primary Care Physician: Santosh Phipps MD Subjective Subjective CC: Weakness, diarrhea HPI: I have seen the patient multiple times today Resting in bed in no acute distress but complains of weakness. Tells me that overall she feels better compared to yesterday. Patient's daughter is also present at the bedside. Denies any fever or chills. No chest pain or palpitation or shortness of breath. No nausea or vomiting. Patient had good appetite for breakfast this morning. Objective Objective Vital Signs: Temp: [97.3 ??F (36.3 ??C)-98.6 ??F (37 ??C)] 98.6 ??F (37 ??C) Heart Rate: [62-79] 62 Resp: [16-18] 16 BP: (79-117)/(46-66) 82/50 Physical Exam: Constitutional: No acute distress HENT: NCAT, mucous membranes moist Respiratory: Clear to auscultation bilaterally, respiratory effort normal Cardiovascular: RRR, no murmurs, rubs, or gallops Gastrointestinal: Positive bowel sounds, soft, nontender, nondistended Musculoskeletal: No bilateral ankle edema Psychiatric: Appropriate affect, cooperative Neurologic: Oriented x 3, speech clear Skin: No rashes Results Reviewed: LAB RESULTS: Lab 09/27/25 0514 09/26/25 1941 09/26/25 1654 09/26/25 1347 09/26/25 1210 09/26/25 1059 WBC 17.57* -- -- -- -- 23.86* HEMOGLOBIN 10.4* -- -- -- -- 14.2 HEMATOCRIT 32.3* -- -- -- -- 43.4 PLATELETS 211 -- -- -- -- 374 NEUTROS ABS -- -- -- -- -- 21.71* IMMATURE GRANS (ABS) -- -- -- -- -- 0.26*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 Infection Signs and Symptoms Outcome: Progressing Intervention: Promote Recovery Recent Flowsheet Documentation Taken 09/29/2025 1613 by Malissa Chung RN Activity Management: activity encouraged Taken 09/29/2025 1400 by Malissa Chung RN Activity Management: activity encouraged Taken 09/29/2025 1226 by Malissa Chung RN Activity Management: activity encouraged Taken 09/29/2025 1005 by Malissa Chung RN Activity Management: activity encouraged Taken 09/29/2025 0812 by Malissa Chung RN Activity Management: activity encouraged Goal: Optimal Nutrition Delivery Outcome: Progressing Problem: Fall Injury Risk Goal: Absence of Fall and Fall-Related Injury Outcome: Progressing Intervention: Promote Injury-Free Environment Recent Flowsheet Documentation Taken 09/29/2025 1613 by Malissa Chung RN Safety Promotion/Fall Prevention: activity supervised assistive device/personal items within reach fall prevention program maintained gait belt nonskid shoes/slippers when out of bed room organization consistent safety round/check completed Taken 09/29/2025 1400 by Malissa Chung RN Safety Promotion/Fall Prevention: activity supervised assistive device/personal items within reach fall prevention program maintained gait belt nonskid shoes/slippers when out of bed room organization consistent safety round/check completed Taken 09/29/2025 1226 by Malissa Chung RN Safety Promotion/Fall Prevention: activity supervised assistive device/personal items within reach fall prevention program maintained gait belt nonskid shoes/slippers when out of bed room organization consistent safety round/check completed Taken 09/29/2025 1005 by Malissa Chung RN Safety Promotion/Fall Prevention: activity supervised assistive device/personal items within reach fall prevention program maintained gait belt nonskid shoes/slippers when out of bed room organization consistent safety round/check completed Taken 09/29/2025 0812 by Malissa Chung RN Safety Promotion/Fall Prevention: activity supervised assistive device/personal items within reach fall prevention program maintained gait belt nonskid shoes/slippers when out of bed room organization consistent safety round/check completed Goal Outcome Evaluation: progressing well, no liquid BM's today, no nausea, tolerating diet well, ambulated in room.daughter at bedside, VSS, resting in bed,no needs identified * Sheri Jones RN - 09/29/2025 3:49 AM EST Problem: Adult Inpatient Plan of Care Goal: Plan of Care Review Outcome: Progressing Goal: Patient-Specific Goal (Individualized) Outcome: Progressing Goal: Absence of Hospital-Acquired Illness or Injury Outcome: Progressing Intervention: Identify and Manage Fall Risk Recent Flowsheet Documentation Taken 09/29/2025 0200 by Sheri Jones, CRYSTAL Safety Promotion/Fall Prevention: activity supervised Taken 09/29/2025 0000 by Sheri Jones RN Safety Promotion/Fall Prevention: activity supervised Taken 09/28/20252199 by Sheri Jones RN Safety Promotion/Fall Prevention: activity supervised Taken 09/28/20251999 by Sheri Jones RN Safety Promotion/Fall Prevention: activity supervised Intervention: Prevent Skin Injury Recent Flowsheet Documentation Taken 09/29/2025 0200 by Sheri Jones RN Skin Protection: incontinence pads utilized silicone border foam - heel silicone border foam - sacrum/coccyx Taken 09/29/2025 0000 by Sheri Jones RN Skin Protection: incontinence pads utilized silicone border foam - heel silicone border foam - sacrum/coccyx Taken 09/28/20250 by Sheri Jones RN Skin Protection: incontinence pads utilized silicone border foam - heel silicone border foam - sacrum/coccyx Taken 09/28/20251999 by Sheri Jones RN Skin Protection: (silicone dressings peeled back, skin assessed) incontinence pads utilized silicone border foam - heel silicone border foam - sacrum/coccyx Intervention: Prevent and Manage VTE (Venous Thromboembolism) Risk Recent Flowsheet Documentation Taken 09/28/20251999 by Sheri Jones RN VTE Prevention/Management: SCDs (sequential compression devices) on Goal: Optimal Comfort and Wellbeing Outcome: Progressing Intervention: Provide Person-Centered Care Recent Flowsheet Documentation Taken 09/28/20251999 by Sheri Jones RN Trust Relationship/Rapport: care explained choices provided Goal: Readiness for Transition of Care Outcome: Progressing Problem: Skin Injury Risk Increased Goal: Skin Health and Integrity Outcome: Progressing Intervention: Optimize Skin Protection Recent Flowsheet Documentation Taken 09/29/2025 0200 by Sheri Jones RN Activity Management: activity encouraged Pressure Reduction Techniques: frequent weight shift encouraged heels elevated off bed positioned off wounds Pressure Reduction Devices: pressure-redistributing mattress utilized positioning supports utilized heel offloading device utilized Skin Protection: incontinence pads utilized silicone border foam - heel silicone border foam - sacrum/coccyx Taken 09/29/2025 0000 by Sheri Jones RN Activity Management: activity encouraged Pressure Reduction Techniques: frequent weight shift encouraged heels elevated off bed positioned off wounds Pressure Reduction Devices: pressure-redistributing mattress utilized positioning supports utilized heel offloading device utilized Skin Protection: incontinence pads utilized silicone border foam - heel silicone border foam - sacrum/coccyx Taken 09/28/20252199 by Sheri Jones RN Activity Management: activity encouraged Pressure Reduction Techniques: frequent weight shift encouraged heels elevated off bed positioned off wounds Head of Bed (HOB) Positioning: HOB elevated Pressure Reduction Devices: pressure-redistributing mattress utilized positioning supports utilized heel offloading device utilized Skin Protection: incontinence pads utilized silicone border foam - heel silicone border foam - sacrum/coccyx Taken 09/28/20251999 by Sheri Jones RN Activity Management: activity encouraged Pressure Reduction Techniques: frequent weight shift encouraged heels elevated off bed positioned off wounds Pressure Reduction Devices: pressure-redistributing mattress utilized positioning supports utilized heel offloading device utilized Skin Protection: (silicone dressings peeled back, skin assessed) incontinence pads utilized silicone border foam - heel silicone border foam - sacrum/coccyx Problem: Sepsis/Septic Shock Goal: Optimal Coping Outcome: Progressing Intervention: Support Patient and Family Response Recent Flowsheet Documentation Taken 09/28/20251999 by Sheri Jones RN Family/Support System Care: self-care encouraged support provided Goal: Absence of Bleeding Outcome: Progressing Goal: Blood Glucose Level Within Target Range Outcome: Progressing Goal: Absence of Infection Signs and Symptoms Outcome: Progressing Intervention: Promote Recovery Recent Flowsheet Documentation Taken 09/29/2025199 by Sheri Jones RN Activity Management: activity encouraged Taken 09/29/2025 by Sheri Jones RN Activity Management: activity encouraged Taken 09/28/20252199 by Sheri Jones RN Activity Management: activity encouraged Taken 09/28/20251999 by Sheri Jones RN Activity Management: activity encouraged Goal: Optimal Nutrition Delivery Outcome: Progressing Problem: Fall Injury Risk Goal: Absence of Fall and Fall-Related Injury Outcome: Progressing Intervention: Identify and Manage Contributors Recent Flowsheet Documentation Taken 09/29/2025199 by Sheri Jones, flexographic printing machinist Review/Management: medications reviewed Taken 09/29/2025 by Sheri Jones RN Medication Review/Management: medications reviewed Taken 09/28/20252199 by Sheri Jones RN Medication Review/Management: medications reviewed Taken 09/28/20251999 by Sheri Jones, flexographic printing machinist Review/Management: medications reviewed Intervention: Promote Injury-Free Environment Recent Flowsheet Documentation Taken 09/29/2025199 by Sheri Jones RN Safety Promotion/Fall Prevention: activity supervised Taken 09/29/2025 0000 by Sheri Jones RN Safety Promotion/Fall Prevention: activity supervised Taken 09/28/2025 2200 by Sheri Jones RN Safety Promotion/Fall Prevention: activity supervised Taken 09/28/2025 2000 by Sheri Jones RN Safety Promotion/Fall Prevention: activity supervised Goal Outcome Evaluation: VSS, RA No complaints of pain per patient IV and oral abx administered No events overnight Pt resting comfortably through the night Safety and fall preventions in place * Malissa Chung RN - 09/28/2025 7:24 PM EST Problem: Adult Inpatient Plan of Care Goal: Plan of Care Review Outcome: Progressing Goal: Patient-Specific Goal (Individualized) Outcome: Progressing Goal: Absence of Hospital-Acquired Illness or Injury Outcome: Progressing Intervention: Identify and Manage Fall Risk Recent Flowsheet Documentation Taken 09/28/2025 1856 by Malissa Chung RN Safety Promotion/Fall Prevention: activity supervised assistive device/personal items within reach fall prevention program maintained gait belt nonskid shoes/slippers when out of bed room organization consistent safety round/check completed Taken 09/28/2025 1606 by Malissa Chung RN Safety Promotion/Fall Prevention: activity supervised assistive device/personal items within reach fall prevention program maintained gait belt nonskid shoes/slippers when out of bed room organization consistent safety round/check completed Taken 09/28/2025 1400 by Malissa Chung RN Safety Promotion/Fall Prevention: activity supervised assistive device/personal items within reach fall prevention program maintained gait belt nonskid shoes/slippers when out of bed room organization consistent safety round/check completed Taken 09/28/2025 1228 by Malissa Chung RN Safety Promotion/Fall Prevention: activity supervised assistive device/personal items within reach fall prevention program maintained gait belt nonskid shoes/slippers when out of bed room organization consistent safety round/check completed Taken 09/28/2025 1003 by Malissa Chung RN Safety Promotion/Fall Prevention: activity supervised assistive device/personal items within reach fall prevention program maintained gait belt nonskid shoes/slippers when out of bed room organization consistent safety round/check completed Taken 09/28/2025 0800 by Malissa Chung RN Safety Promotion/Fall Prevention: activity supervised assistive device/personal items within [facility] fall prevention program maintained gait belt nonskid shoes/slippers when out of bed room organization consistent safety round/check completed clutter free environment maintained Intervention: Prevent Skin Injury Recent Flowsheet Documentation Taken 09/28/2025 1856 by Malissa Chung RN Body Position: turned supine Skin Protection: incontinence pads utilized Taken 09/28/2025 1606 by Malissa Chung RN Skin Protection: incontinence pads utilized Taken 09/28/2025 1400 by Malissa Chung RN Body Position: turned left Skin Protection: incontinence pads utilized Taken 09/28/2025 1228 by Malissa Chung RN Skin Protection: incontinence pads utilized Taken 09/28/2025 1003 by Malissa Chung RN Body Position: supine Skin Protection: incontinence pads utilized Taken 09/28/2025 0800 by Malissa Chung RN Skin Protection: incontinence pads utilized Intervention: Prevent and Manage VTE (Venous Thromboembolism) Risk Recent Flowsheet Documentation Taken 09/28/2025 0800 by Malissa Chung RN VTE Prevention/Management: bilateral SCDs (sequential compression devices) on Goal: Optimal Comfort and Wellbeing Outcome: Progressing Intervention: Provide Person-Centered Care Recent Flowsheet Documentation Taken 09/28/2025 0800 by Malissa Chung RN Trust Relationship/Rapport: care explained emotional support provided questions answered questions encouraged thoughts/feelings acknowledged choices provided Goal: Readiness for Transition of Care Outcome: Progressing Problem: Skin Injury Risk Increased Goal: Skin Health and Integrity Outcome: Progressing Intervention: Optimize Skin Protection Recent Flowsheet Documentation Taken 09/28/2025 1856 by Malissa Chung RN Activity Management: activity encouraged Pressure Reduction Techniques: (erickynbettie changed) weight shift assistance provided pressure points protected Pressure Reduction Devices: specialty bed utilized Skin Protection: incontinence pads utilized Taken 09/28/2025 1606 by Malissa Chung RN Activity Management: activity encouraged Pressure Reduction Techniques: weight shift assistance provided Pressure Reduction Devices: specialty bed utilized Skin Protection: incontinence pads utilized Taken 09/28/2025 1400 by Malissa Chung RN Activity Management: activity encouraged Pressure Reduction Techniques: weight shift assistance provided Pressure Reduction Devices: specialty bed utilized Skin Protection: incontinence pads utilized Taken 09/28/2025 1228 by Malissa Chung RN Activity Management: activity encouraged Pressure Reduction Techniques: weight shift assistance provided Pressure Reduction Devices: specialty bed utilized Skin Protection: incontinence pads utilized Taken 09/28/2025 1003 by Malissa Chung RN Activity Management: activity encouraged Pressure Reduction Techniques: weight shift assistance provided Pressure Reduction Devices: specialty bed utilized Skin Protection: incontinence pads utilized Taken 09/28/2025 0800 by Malissa Chung RN Activity Management: activity encouraged Pressure Reduction Techniques: weight shift assistance provided pressure points protected Pressure Reduction Devices: specialty bed utilized Skin Protection: incontinence pads utilized Problem: Sepsis/Septic Shock Goal: Optimal Coping Outcome: Progressing Goal: Absence of Bleeding Outcome: Progressing Goal: Blood Glucose Level Within Target Range Outcome: Progressing Goal: Absence of Infection Signs and Symptoms Outcome: Progressing Intervention: Promote Recovery Recent Flowsheet Documentation Taken 09/28/2025 1856 by Malissa Chung RN Activity Management: activity encouraged Taken 09/28/2025 1606 by Malissa Chung RN Activity Management: activity encouraged Taken 09/28/2025 1400 by Malissa Chung RN Activity Management: activity encouraged Taken 09/28/2025 1228 by Malissa Chung RN Activity Management: activity encouraged Taken 09/28/2025 1003 by Malissa Chung RN Activity Management: activity encouraged Taken 09/28/2025 0800 by Malissa Chung RN Activity Management: activity encouraged Goal: Optimal Nutrition Delivery Outcome: Progressing Problem: Fall Injury Risk Goal: Absence of Fall and Fall-Related Injury Outcome: Progressing Intervention: Promote Injury-Free Environment Recent Flowsheet Documentation Taken 09/28/2025 1856 by Malissa Chung RN Safety Promotion/Fall Prevention: activity supervised assistive device/personal items within reach fall prevention program maintained gait belt nonskid shoes/slippers when out of bed room organization consistent safety round/check completed Taken 09/28/2025 1606 by Malissa Chung RN Safety Promotion/Fall Prevention: activity supervised assistive device/personal items within reach fall prevention program maintained gait belt nonskid shoes/slippers when out of bed room organization consistent safety round/check completed Taken 09/28/2025 1400 by Malissa Chung RN Safety Promotion/Fall Prevention: activity supervised assistive device/personal items within reach fall prevention program maintained gait belt nonskid shoes/slippers when out of bed room organization consistent safety round/check completed Taken 09/28/2025 1228 by Mlaissa Chung RN Safety Promotion/Fall Prevention: activity supervised assistive device/personal items within reach fall prevention program maintained gait belt nonskid shoes/slippers when out of bed room organization consistent safety round/check completed Taken 09/28/2025 1003 by Malissa Chung RN Safety Promotion/Fall Prevention: activity supervised assistive device/personal items within [facility] fall prevention program maintained gait belt nonskid shoes/slippers when out of bed room organization consistent safety round/check completed Taken 09/28/2025 0800 by Malissa Chung RN Safety Promotion/Fall Prevention: activity supervised assistive device/personal items within reach fall prevention program maintained gait belt nonskid shoes/slippers when out of bed room organization consistent safety round/check completed clutter free environment maintained Goal Outcome Evaluation: responding to ATB, electrolytes (Mg, K and phos) replaced, multiple loose bowel movements, wounds cared for and dressed accordingly, daughter at bedside, VSS, no needs identified at this time, will continue plan of care. * Sheri Jones RN - 09/28/2025 5:15 AM EST Problem: Adult Inpatient Plan of Care Goal: Plan of Care Review Outcome: Progressing Goal: Patient-Specific Goal (Individualized) Outcome: Progressing Goal: Absence of Hospital-Acquired Illness or Injury Outcome: Progressing Intervention: Identify and Manage Fall Risk Recent Flowsheet Documentation Taken 09/28/2025 0400 by Sheri Jones RN Safety Promotion/Fall Prevention: activity supervised Taken 09/28/2025 0200 by Sheri Jones RN Safety Promotion/Fall Prevention: activity supervised Taken 09/28/2025 0000 by Sheri Jones RN Safety Promotion/Fall Prevention: activity supervised Taken 09/27/2025 2200 by Sheri Jones RN Safety Promotion/Fall Prevention: activity supervised Taken 09/27/2025 2000 by Sheri Jones RN Safety Promotion/Fall Prevention: activity supervised Intervention: Prevent Skin Injury Recent Flowsheet Documentation Taken 09/28/2025 0400 by Sheri Jones RN Skin Protection: incontinence pads utilized silicone border foam - heel silicone border foam - sacrum/coccyx Taken 09/28/2025 0200 by Sheri Jones RN Skin Protection: incontinence pads utilized silicone border foam - heel silicone border foam - sacrum/coccyx Taken 09/28/2025 0000 by Sheri Jones RN Skin Protection: incontinence pads utilized silicone border foam - heel silicone border foam - sacrum/coccyx Taken 09/27/2025 2200 by Sheri Jones RN Body Position: turned left Skin Protection: incontinence pads utilized silicone border foam - heel silicone border foam - sacrum/coccyx Taken 09/27/20251999 by Sheri Jones RN Skin Protection: (silicone dressings reapplied, skin assessed) incontinence pads utilized silicone border foam - heel silicone border foam - sacrum/coccyx Intervention: Prevent and Manage VTE (Venous Thromboembolism) Risk Recent Flowsheet Documentation Taken 09/27/20251999 by Sheri Jones RN VTE Prevention/Management: SCDs (sequential compression devices) on Goal: Optimal Comfort and Wellbeing Outcome: Progressing Intervention: Provide Person-Centered Care Recent Flowsheet Documentation Taken 09/27/20251999 by Sheri Jones RN Trust Relationship/Rapport: care explained choices provided Goal: Readiness for Transition of Care Outcome: Progressing Problem: Skin Injury Risk Increased Goal: Skin Health and Integrity Outcome: Progressing Intervention: Optimize Skin Protection Recent Flowsheet Documentation Taken 09/28/2025 0400 by Sheri Jones RN Pressure Reduction Techniques: frequent weight shift encouraged heels elevated off bed positioned off wounds Head of Bed (HOB) Positioning: HOB elevated Pressure Reduction Devices: pressure-redistributing mattress utilized positioning supports utilized heel offloading device utilized Skin Protection: incontinence pads utilized silicone border foam - heel silicone border foam - sacrum/coccyx Taken 09/28/2025 0200 by Sheri Jones RN Activity Management: activity encouraged Pressure Reduction Techniques: frequent weight shift encouraged heels elevated off bed positioned off wounds Pressure Reduction Devices: pressure-redistributing mattress utilized positioning supports utilized heel offloading device utilized Skin Protection: incontinence pads utilized silicone border foam - heel silicone border foam - sacrum/coccyx Taken 09/28/2025 0000 by Sheri Jones RN Activity Management: activity encouraged Pressure Reduction Techniques: frequent weight shift encouraged heels elevated off bed positioned off wounds Pressure Reduction Devices: pressure-redistributing mattress utilized positioning supports utilized heel offloading device utilized Skin Protection: incontinence pads utilized silicone border foam - heel silicone border foam - sacrum/coccyx Taken 09/27/20252199 by Sheri Jones RN Activity Management: activity encouraged Pressure Reduction Techniques: frequent weight shift encouraged heels elevated off bed positioned off wounds Head of Bed (HOB) Positioning: HOB elevated Pressure Reduction Devices: pressure-redistributing mattress utilized positioning supports utilized heel offloading device utilized Skin Protection: incontinence pads utilized silicone border foam - heel silicone border foam - sacrum/coccyx Taken 09/27/20251999 by Sheri Jones RN Activity Management: activity encouraged Pressure Reduction Techniques: frequent weight shift encouraged heels elevated off bed positioned off wounds Pressure Reduction Devices: pressure-redistributing mattress utilized positioning supports utilized heel offloading device utilized Skin Protection: (silicone dressings reapplied, skin assessed) incontinence pads utilized silicone border foam - heel silicone border foam - sacrum/coccyx Problem: Sepsis/Septic Shock Goal: Optimal Coping Outcome: Progressing Intervention: Support Patient and Family Response Recent Flowsheet Documentation Taken 09/27/20251999 by Sheri Jones RN Family/Support System Care: self-care encouraged support provided Goal: Absence of Bleeding Outcome: Progressing Goal: Blood Glucose Level Within Target Range Outcome: Progressing Goal: Absence of Infection Signs and Symptoms Outcome: Progressing Intervention: Promote Recovery Recent Flowsheet Documentation Taken 09/28/2025 0200 by Sheri Jones, RN Activity Management: activity encouraged Taken 09/28/2025 by Sheri Jones, RN Activity Management: activity encouraged Taken 09/27/20252199 by Sheri Jones, RN Activity Management: activity encouraged Taken 09/27/20251999 by Sheri Jones RN Activity Management: activity encouraged Goal: Optimal Nutrition Delivery Outcome: Progressing Problem: Fall Injury Risk Goal: Absence of Fall and Fall-Related Injury Outcome: Progressing Intervention: Identify and Manage Contributors Recent Flowsheet Documentation Taken 09/28/2025 0400 by Sheri Jones, flexographic printing machinist Review/Management: medications reviewed Taken 09/28/2025 0200 by Sheri Jones, flexographic printing machinist Review/Management: medications reviewed Taken 09/28/2025 0000 by Sheri Jones RN Medication Review/Management: medications reviewed Taken 09/27/2025 2200 by Sheri Jones RN Medication Review/Management: medications reviewed Taken 09/27/20251999 by Sheri Jones RN Medication Review/Management: medications reviewed Intervention: Promote Injury-Free Environment Recent Flowsheet Documentation Taken 09/28/2025 0400 by Sheri Jones RN Safety Promotion/Fall Prevention: activity supervised Taken 09/28/2025 0200 by Sheri Jones RN Safety Promotion/Fall Prevention: activity supervised Taken 09/28/2025 0000 by Sheri Jones RN Safety Promotion/Fall Prevention: activity supervised Taken 09/27/2025 2200 by Sheri Jones RN Safety Promotion/Fall Prevention: activity supervised Taken 09/27/20251999 by Sheri Jones RN Safety Promotion/Fall Prevention: activity supervised Goal Outcome Evaluation: VSS, RA No complaints of pain per patient IV and oral abx administered No events overnight Pt resting comfortably throughout the night Safety and fall preventions in place * Velvet Kirkpatrick, PT - 09/27/2025 2:54 PM EST Goal Outcome Evaluation: Plan of Care Reviewed With: patient, child Outcome Evaluation: PT initial evaluation completed. Pt demonstrating decreased activity tolerance,generalized weakness and increased falls risk compared to reported baseline warranting continued skilled IPPT interventions. Limited mobility assessment this date d/t BP of 78/59 at EOB w/ associateddizziness. PT recommending SNF upon d/c to promote best functional outcome, however, will monitor closely. Anticipated Discharge Disposition (PT): long term facility * Nava Robb, OT - 09/27/2025 2:50 PM EST Goal Outcome Evaluation: Plan of Care Reviewed With: patient, daughter Progress: no change Outcome Evaluation: OT eval complete.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 (e.g., wheelchair, bedside chair)? 2 -LF Climbing 3-5 steps with a railing? 1 -LF To walk in hospital room? 2 -LF AM-PAC 6 Clicks Score (PT) 12 -LF Row Name 09/27/25 5733 Functional Assessment Outcome Measure Options AM-PAC 6 Clicks Daily Activity (OT) -LR User Pantoja (r) = Recorded By, (t) = Taken By, (c) = Cosigned By Initials Name Provider Type LR Nava Robb, ABIGAIL Occupational Therapist Ariel Gil, CRYSTAL Registered Nurse Occupational Therapy Education Title: PT OT SUPPORT DBA Therapies (In Progress) Topic: Occupational Therapy (In Progress) Point: ADL training (In Progress) Learning Progress Summary Patient Acceptance, E, NR by LR at 09/27/20251552 Point: Home exercise program (In Progress) Learning Progress Summary Patient Acceptance, E, NR by LR at 09/27/2025 155 Point: Precautions (In Progress) Learning Progress Summary Patient Acceptance, E, NR by LR at 09/27/20251552 Point: Body mechanics (In Progress) Learning Progress Summary Patient Acceptance, E, NR by LR at 09/27/20251552 User Pantoja Initials Effective Dates Name Provider Type Discipline 08/15/24 - Nava Robb OT Occupational Therapist OT OT Recommendation and Plan Recommended discharge disposition is based on the functional assessment performed by PT/OT/Speech therapy (as applicable) and may not reflect the medical necessity determined by your provider or services covered by an individual patient's insurance plan or patient resource. Planned Therapy Interventions (OT): activity tolerance training, adaptive equipment training, BADL retraining, occupation/activity based interventions, cognitive/visual perception retraining, transfer/mobility retraining, passive ROM/stretching, functional balance retraining, IADL retraining, patien t/caregiver education/training, strengthening exercise, ROM/therapeutic exercise Therapy Frequency (OT): daily Plan of Care Review Plan of Care Reviewed With: patient, daughter Progress: no change Outcome Evaluation: OT eval complete. Pt presents below baseline with ADL performance and functional mobility. Dep A for yamil hygiene. Min A for bed mobility. Deferred OOB mobility d/t low BP and symptomatic dizziness. Recommend IPOT POC and SNF at D/C, but will continue to monitor progress. Time Calculation: Evaluation Complexity (OT) Review Occupational Profile/Medical/Therapy History Complexity: expanded/moderate complexity Assessment, Occupational Performance/Identification of Deficit Complexity: 3-5 performance deficits Clinical Decision Making Complexity (OT): detailed assessment/moderate complexity Overall Complexity of Evaluation (OT): moderate complexity Time Calculation- OT Row Name 09/27/25 701 Time Calculation- OT OT Start Time 1450 -LR OT Received On 09/27/25 -LR OT Goal Re-Cert Due Date 10/07/25 -LR Untimed Charges OT Eval/Re-eval Minutes 61 -LR Total Minutes Untimed Charges Total Minutes 61 -LR Total Minutes 61 -LR User Pantoja (r) = Recorded By, (t) = Taken By, (c) = Cosigned By Initials Name Provider Type LR Nava Robb OT Occupational Therapist Therapy Charges for Today Code Description Service Date Service Provider Modifiers Qty [id number] HC-OT EVAL MOD COMPLEXITY 5 09/27/2025 Nava Robb OT 1 Nava Robb OT 09/27/2025 * Case Management/Social Work - Christine Thibodeaux MSW - 09/26/2025 2:42 PM EST Discharge Planning Assessment [facility] Patient Name: Bella Presley Today's Date: 09/26/2025 Admit Date: 09/26/2025 Plan: IDP Discharge Needs Assessment Row Name 09/26/25 1442 Living Environment People in Home child(ivan), adult Primary Care Provided by self Discharge Needs Assessment Readmission Within the Last 30 Days no previous admission in last 30 days Equipment Currently Used at Home none Concerns to be Addressed denies needs/concerns at this time Discharge Plan Row Name 09/26/25 1442 Plan Plan IDP Plan Comments STRADDLE BUG met with Pt and daughter at bedside to complete IDP. Pt currently lives with daughter in [place]. Pt???s PCP is Sobeida [place] and Pt has [place] insurance coverage. Pt independent at baseline; Pt reports no DME, HH, or home O2. Pt denied needs or concerns. CM will continue to follow. Continued Care and Services - Admitted Since 09/26/2025 No active coordination exists. Demographic Summary Row Name 09/26/25 1441 General Information Arrived From home Referral Source admission list;emergency department Reason for Consult discharge planning GRACIELA Ruiz documented in this encounter Plan of Treatment Upcoming Encounters Date Type Department Care Team (Hayder Contact Info) Description 12/31/2025 10:45 AM EST Office Visit [facility] GA[facility] [address] [facility] [address] [place] [address] Breanne Peterson, MANUFACTURING PRODUCTION MANAGER [address] [facility] [address] [place] [address] documented as of this encounter Procedures Procedure Name Priority Date/Time Associated Diagnosis Comments MAGNESIUM Routine 10/01/2025 1:46 PM EST COMPREHENSIVE METABOLIC PANEL Routine 10/01/2025 1:46 PM EST CBC (NO DIFF) Routine 10/01/2025 1:07 PM EST POCT GLUCOSE FINGERSTICK Routine 11:32 AM EST SCANNED - TELEMETRY 10/01/2025 7 :29 AM EST POCT GLUCOSE FINGERSTICK Routine 7:20 AM EST POCT GLUCOSE FINGERSTICK Routine 8:46 PM EST POCT GLUCOSE FINGERSTICK Routine 4:18 PM EST CBC WITH AUTO DIFFERENTIAL Routine 09/30/2025 1:12 PM EST CBC AND DIFFERENTIAL Routine 09/30/2025 1:12 PM EST PHOSPHORUS Routine 09/30/2025 1:12 PM EST MAGNESIUM Routine 09/30/2025 1:12 PM EST BASIC METABOLIC PANEL Routine 09/30/2025 1:12 PM EST POCT GLUCOSE FINGERSTICK Routine 11:06 AM EST POCT GLUCOSE FINGERSTICK Routine 7:08 AM EST POCT GLUCOSE FINGERSTICK Routine 7:47 PM EST POCT GLUCOSE FINGERSTICK Routine 4:08 PM EST POCT GLUCOSE FINGERSTICK Routine 11:14 AM EST CBC WITH AUTO DIFFERENTIAL Routine 09/29/2025 6:58 AM EST CBC AND DIFFERENTIAL Routine 09/29/2025 6:58 AM EST MAGNESIUM Routine 09/29/2025 6:58 AM EST POCT GLUCOSE FINGERSTICK Routine 6:54 AM EST PHOSPHORUS Timed 09/29/2025 12:55 AM EST POTASSIUM Timed 09/28/2025 8:46 PM EST POCT GLUCOSE FINGERSTICK Routine 7:41 PM EST POCT GLUCOSE FINGERSTICK Routine 5:13 PM EST POCT GLUCOSE FINGERSTICK Routine 11:39 AM EST CBC WITH AUTO DIFFERENTIAL STAT 09/28/2025 10:34 AM EST CBC AND DIFFERENTIAL STAT 09/28/2025 10:34 AM EST PHOSPHORUS STAT 09/28/2025 10:34 AM EST MAGNESIUM STAT 09/28/2025 10:34 AM EST BASIC METABOLIC PANEL STAT 09/28/2025 10:34 AM EST POCT GLUCOSE FINGERSTICK Routine 7:04 AM EST POCT GLUCOSE FINGERSTICK Routine 7:24 PM EST POCT GLUCOSE FINGERSTICK Routine 5:56 PM EST POCT GLUCOSE FINGERSTICK Routine 4:46 PM EST BLOOD GAS, ARTERIAL W/CO-OXIMETRY Routine 09/27/2025 1:46 PM EST POTASSIUM Timed 09/27/2025 11:38 AM EST FOLATE Routine 09/27/2025 11:38 AM EST VITAMIN B12 Routine 09/27/2025 11:38 AM EST POCT GLUCOSE FINGERSTICK Routine 11:23 AM EST GASTROINTESTINAL PANEL, PCR (PREFERRED) DOES NOT INCLUDE CDIFF STAT 09/27/2025 10:49 AM EST CLOSTRIDIOIDES DIFFICILE TOXIN AG (REFLEX ONLY) STAT 09/27/2025 10:49 AM EST CLOSTRIDIOIDES DIFFICILE TOXIN STAT 09/27/2025 10:49 AM EST CLOSTRIDIOIDES DIFFICILE TOXIN, PCR STAT 09/27/2025 10:49 AM EST POCT GLUCOSE FINGERSTICK Routine 7:23 AM EST IRON PROFILE Add-On 09/27/2025 7:08 AM EST FERRITIN Add-On 09/27/2025 7:08 AM EST CORTISOL Add-On 09/27/2025 7:08 AM EST BASIC METABOLIC PANEL Routine 09/27/2025 7:08 AM EST RETICULOCYTES Add-On 09/27/2025 5:14 AM EST CBC (NO DIFF) Routine 09/27/2025 5:14 AM EST POCT GLUCOSE FINGERSTICK Routine 025 7:53 PM EST LACTIC ACID, REFLEX STAT 09/26/2025 7 :41 PM EST WOUND OSTOMY EVAL AND TREAT Routine 09/26/2025 4:55 PM EST LACTIC ACID, REFLEX STAT 09/26/2025 4 :54 PM EST POCT GLUCOSE FINGERSTICK Routine 025 4:48 PM EST LACTIC ACID, REFLEX STAT 09/26/2025 1 :47 PM EST BLOOD CULTURE STAT 09/26/2025 1:47 PM EST BLOOD CULTURE STAT 09/26/2025 1:35 PM EST BLOOD GAS, VENOUS W/CO-OXIMETRY STAT 09/26/2025 1:[address] ABDOMEN PELVIS W CONTRAST STAT 09/26/2025 12:[address] HEAD WO CONTRAST STAT 09/26/2025 1 2:45 PM EST HIGH SENSITIVITIY TROPONIN T 1HR STAT 09/26/2025 12:10 PM EST URINALYSIS, MICROSCOPIC ONLY STAT 09/26/2025 11:34 AM EST URINALYSIS W/ MICROSCOPIC IF INDICATED (NO CULTURE) STAT 09/26/2025 11:34 AM EST URINE CULTURE STAT 09/26/2025 11:34 AM EST ECG 12-LEAD STAT 09/26/2025 11:15 AM EST XR CHEST 1 VW STAT 09/26/2025 11:04 AM EST SCANNED - TELEMETRY 09/26/2025 1 1:02 AM EST KETONE BODIES STAT 09/26/2025 10:59 AM EST BETA HYDROXYBUTYRATE QUANTITATIVE STAT 09/26/2025 10:59 AM EST COLON TOP STAT 09/26/2025 10:59 AM EST TSH RFX ON ABNORMAL TO FREE T4 STAT 09/26/2025 10:59 AM EST GOLD TOP - SST STAT 09/26/2025 10:59 AM EST DK GREEN TOP STAT 09/26/2025 10:59 AM EST PROCALCITONIN STAT 09/26/2025 10:59 AM EST CBC WITH AUTO DIFFERENTIAL STAT 09/26/2025 10:59 AM EST LAVENDER TOP STAT 09/26/2025 10:59 AM EST LIGHT BLUE TOP STAT 09/26/2025 10:59 AM EST RAINBOW DRAW STAT 09/26/2025 10:59 AM EST TROPONIN STAT 09/26/2025 10:59 AM EST CBC AND DIFFERENTIAL STAT 09/26/2025 10:59 AM EST T4, FREE STAT 09/26/2025 10:59 AM EST PHOSPHORUS STAT 09/26/2025 10:59 AM EST MAGNESIUM STAT 09/26/2025 10:59 AM EST LIPASE STAT 09/26/2025 10:59 AM EST LACTIC ACID, PLASMA STAT 09/26/2025 1 0:59 AM EST CALCIUM, IONIZED STAT 09/26/2025 10:5 9 AM EST AMMONIA STAT 09/26/2025 10:59 AM EST COMPREHENSIVE METABOLIC PANEL STAT 09/26/2025 10:59 AM EST ENDOSCOPY, INT 09/26/2025 SCANNED - TELEMETRY 09/26/2025 SCANNED PATHOLOGY 09/26/2025 documented in this encounter Results * Magnesium (10/01/2025 1:46 PM EST) Magnesium 1.9 1.6 - 2.4 mg/dL 10/01/2025 2:41 PM EST [facility] Blood Venipuncture / Unknown 10/01/2025 1:46 PM EST 10/01/2025 2:15 PM EST Azeb Zhang MD LAB BLOOD ORDERABLES Final Resul t [facility]
[address] [place] [address], * (ABNORMAL) Comprehensive Metabolic Panel (10/01/2025 1:46 PM EST) Glucose 116(H) 65 - 99 mg/dL 10/01/2025 2:41 PM EST [facility] BUN 3.6(L) 8.0 - 23.0 mg/dL 10/01/2025 2:41 PM EST [facility] Creatinine 0.91 0.57 - 1.00 mg/dL 10/01/2025 2:41 PM EST [facility] Sodium 144 136 - 145 mmol/L 10/01/2025 2:41 PM [facility] Potassium 3.2(L) 3.5 - 5.2 mmol/L 10/01/2025 2:41 PM [facility] Chloride 110(H) 98 - 107 mmol/L 10/01/2025 2:41 PM [facility] CO2 24.0 22.0 - 29.0 mmol/L 10/01/2025 2:41 PM [facility] Calcium 8.4(L) 8.6 - 10.5 mg/dL 10/01/2025 2:41 PM [facility] Total Protein 6.0 6.0 - 8.5 g/dL 10/01/2025 2:41 PM [facility] Albumin 3.1(L) 3.5 - 5.2 g/dL 10/01/2025 2:41 PM [facility] ALT (SGPT) 11 1 - 33 U/L 10/01/2025 2:41 PM [facility] AST (SGOT) 24 1 - 32 U/L 10/01/2025 2:41 PM [facility] Alkaline Phosphatase 61 39 - 117 U/L 10/01/2025 2:41 PM [facility] Total Bilirubin 0.3 0.0 - 1.2 mg/dL 10/01/2025 2:41 PM [facility] Globulin 2.9 gm/dL 10/01/2025 2:41 PM [facility] Comment:Calculated Result A/G Ratio 1.1 g/dL 10/01/2025 2:41 PM [facility] BUN/Creatinine Ratio 4.0(L) 7.0 - 25.0 10/01/2025 2:41 PM [facility] Anion Gap 10.0 5.0 - 15.0 mmol/L 10/01/2025 2:41 PM [facility] eGFR 71.5 >60.0 mL/min/1.7 3 10/01/2025 2:41 PM [facility] Blood Venipuncture / Unknown 10/01/2025 1:46 PM EST 10/01/2025 2:15 PM EST [facility] - 10/01/2025 2:41 PM EST GFR Categories in Chronic Kidney [...] not include race as a factor us Azeb Zhang MD LAB BLOOD ORDERABLES Final Resul t [facility]
[address] [place] [address], * (ABNORMAL) CBC (No Diff) (10/01/2025 1:07 PM EST) WBC 10.03 3.40 - 10.80 10*3/mm3 10/01/2025 1:17 PM EST [facility] RBC 4.25 3.77 - 5.28 10*6/mm3 10/01/2025 1:17 PM EST [facility] Hemoglobin 11.0(L) 12.0 - 15.9 g/dL 10/01/2025 1:17 PM EST [facility] Hematocrit 33.8(L) 34.0 - 46.6 % 10/01/2025 1:17 PM EST [facility] MCV 79.5 79.0 - 97.0 fL 10/01/2025 1:17 PM EST [facility] MCH 25.9(L) 26.6 - 33.0 pg 10/01/2025 1:17 PM EST [facility] MCHC 32.5 31.5 - 35.7 g/dL 10/01/2025 1:17 PM EST [facility] RDW 17.8(H) 12.3 - 15.4 % 10/01/2025 1:17 PM EST [facility] RDW-SD 48.9 37.0 - 54.0 fl 10/01/2025 1:17 PM EST [facility] MPV 9.1 6.0 - 12.0 fL 10/01/2025 1:17 PM EST [facility] Platelets 252 140 - 450 10*3/mm3 10/01/2025 1:17 PM EST [facility] Blood Venipuncture / Unknown 10/01/2025 1:07 PM EST 10/01/2025 1:07 PM EST Azeb Zhang MD LAB BLOOD ORDERABLES Final Resul t Performing Organization Address City/[facility]/ZIP Co de Phone Number [facility]
[address] [place] [address], * POC Glucose Once (10/01/2025 11:32 AM EST) Glucose 103 70 - 130 mg/dL 10/01/2025 11:37 AM EST [facility] Comment:Serial Number: [id number]: [id number] Blood 10/01/2025 11:3 2 AM EST 10/01/2025 11:37 AM EST Gaudencio Rankin DO POINT OF CARE TEST ORDERABLES Fi nal Result Performing Organization Address City/[facility]/ZIP Co de Phone Number [facility]
[address] [place] [address], * Telemetry Scan (10/01/2025 7:29 AM EST) [facility] Onbase ECG ORDERABLES Final Result * POC Glucose Once (10/01/2025 7:20 AM EST) Glucose 100 70 - 130 mg/dL 10/01/2025 7:24 AM EST [facility] Comment:Serial Number: [id number]: [id number] Blood 10/01/2025 7:20 AM EST 10/01/2025 7:24 AM EST us Gaudencio Rankin DO POINT OF CARE TEST ORDERABLES Fi nal Result Performing Organization Address City/[facility]/ZIP Co de Phone Number [facility]
[address] [place] [address], * POC Glucose Once (09/30/2025 8:46 PM EST) Glucose 114 70 - 130 mg/dL 09/30/2025 8:48 PM EST [facility] Comment:Serial Number: [id number]: [id number] Blood 09/30/2025 8:46 PM EST 09/30/2025 8:48 PM EST us Azeb Zhang MD POINT OF CARE TEST ORDERABLES Fi nal Result Performing Organization Address [facility] Phone Number [facility]
[address] [place] [address], * (ABNORMAL) POC Glucose Once (09/30/2025 4:18 PM EST) Glucose 141(H) 70 - 130 mg/dL 09/30/2025 4:20 PM EST [facility] Comment:Serial Number: [id number]: [id number] Blood 09/30/2025 4:18 PM EST 09/30/2025 4:20 PM EST us Azeb Zhang MD POINT OF CARE TEST ORDERABLES Fi nal Result Performing Organization Address City/[facility] Co de Phone Number [facility]
[address] [place] [address], * (ABNORMAL) CBC Auto Differential (09/30/2025 1:12 PM EST) [facility] WBC 11.03(H) 3.40 - 10.80 10*3/mm3 09/30/2025 1:23 PM EST [facility] RBC 4.28 3.77 - 5.28 10*6/mm3 09/30/2025 1:23 PM EST [facility] Hemoglobin 10.8(L) 12.0 - 15.9 g/dL 09/30/2025 1:23 PM EST [facility] Hematocrit 34.1 34.0 - 46.6 % 09/30/2025 1:23 PM EST [facility] MCV 79.7 79.0 - 97.0 fL 09/30/2025 1:23 PM EST [facility] MCH 25.2(L) 26.6 - 33.0 pg 09/30/2025 1:23 PM EST [facility] MCHC 31.7 31.5 - 35.7 g/dL 09/30/2025 1:23 PM [facility] RDW 17.9(H) 12.3 - 15.4 % 09/30/2025 1:23 PM EST [facility] RDW-SD 49.7 37.0 - 54.0 fl 09/30/2025 1:23 PM [facility] MPV 8.4 6.0 - 12.0 fL 09/30/2025 1:23 PM EST [facility] Platelets 262 140 - 450 10*3/mm3 09/30/2025 1:23 PM [facility] Neutrophil % 77.8(H) 42.7 - 76.0 % 09/30/2025 1:23 PM EST [facility] Lymphocyte % 12.1(L) 19.6 - 45.3 % 09/30/2025 1:23 PM [facility] Monocyte % 7.5 5.0 - 12.0 % 09/30/2025 1:23 PM EST [facility] Eosinophil % 1.1 0.3 - 6.2 % 09/30/2025 1:23 PM EST [facility] Basophil % 0.3 0.0 - 1.5 % 09/30/2025 1:23 PM EST [facility] Immature Grans % 1.2(H) 0.0 - 0.5 % 09/30/2025 1:23 PM EST [facility] Neutrophils, Absolute 8.58(H) 1.70 - 7.00 10*3/mm3 09/30/2025 1:23 PM EST [facility] Lymphocytes, Absolute 1.34 0.70 - 3.10 10*3/mm3 09/30/2025 1:23 PM EST [facility] Monocytes, Absolute 0.83 0.10 - 0.90 10*3/mm3 09/30/2025 1:23 PM EST [facility] Eosinophils, Absolute 0.12 0.00 - 0.40 10*3/mm3 09/30/2025 1:23 PM EST [facility] Basophils, Absolute 0.03 0.00 - 0.20 10*3/mm3 09/30/2025 1:23 PM EST [facility] Immature Grans, Absolute 0.13(H) 0.00 - 0.05 10*3/mm3 09/30/2025 1:23 PM EST [facility] nRBC 0.0 0.0 - 0.2 /100 WBC 09/30/2025 1:23 PM EST [facility] Blood Venipuncture / Unknown 09/30/2025 1:12 PM EST 09/30/2025 1:17 PM EST us Tawanda Liu MD LAB BLOOD ORDERABLES Final Re sult [facility]
[address] [place] [address], * (ABNORMAL) Basic Metabolic Panel (09/30/2025 1:12 PM EST) Glucose 132(H) 65 - 99 mg/dL 09/30/2025 1:45 PM [facility] BUN 3.2(L) 8.0 - 23.0 mg/dL 09/30/2025 1:45 PM [facility] Creatinine 0.93 0.57 - 1.00 mg/dL 09/30/2025 1:45 PM EST [facility] Sodium 142 136 - 145 mmol/L 09/30/2025 1:45 PM EST [facility] Potassium 3.7 3.5 - 5.2 mmol/L 09/30/2025 1:45 PM EST [facility] Chloride 111(H) 98 - 107 mmol/L 09/30/2025 1:45 PM [facility] CO2 22.1 22.0 - 29.0 mmol/L 09/30/2025 1:45 PM [facility] Calcium 8.2(L) 8.6 - 10.5 mg/dL 09/30/2025 1:45 PM [facility] BUN/Creatinine Ratio 3.4(L) 7.0 - 25.0 09/30/2025 1:45 PM [facility] Anion Gap 8.9 5.0 - 15.0 mmol/L 09/30/2025 1:45 PM [facility] eGFR 69.6 >60.0 mL/min/1.7 3 09/30/2025 1:45 PM [facility] Blood Venipuncture / Unknown 09/30/2025 1:12 PM EST 09/30/2025 1:17 PM EST [facility] - 09/30/2025 1:45 PM EST GFR Categories in Chronic Kidney [...] not include race as a factor us Tawanda Liu MD LAB BLOOD ORDERABLES Final Re sult Performing Organization Address City/[facility]/ZIP Co de Phone Number [facility]
[address] [place] [address], * Phosphorus (09/30/2025 1:12 PM EST) Phosphorus 3.1 2.5 - 4.5 mg/dL 09/30/2025 1:45 PM EST [facility] Blood Venipuncture / Unknown 09/30/2025 1:12 PM EST 09/30/2025 1:17 PM EST Tawanda Liu MD LAB BLOOD ORDERABLES Final Re sult Performing Organization Address [facility]/ZIP Co de Phone Number [facility]
[address] [place] [address], * Magnesium (09/30/2025 1:12 PM EST) Magnesium 2.0 1.6 - 2.4 mg/dL 09/30/2025 1:48 PM EST [facility] Blood Venipuncture / Unknown 09/30/2025 1:12 PM EST 09/30/2025 1:17 PM EST Tawanda Liu MD LAB BLOOD ORDERABLES Final Re sult Performing Organization Address City/[facility]/ZIP Co de Phone Number [facility]
[address] [place] [address], * POC Glucose Once (09/30/2025 11:06 AM EST) Glucose 112 70 - 130 mg/dL 09/30/2025 11:09 AM EST [facility] Comment:Serial Number: [id number]: [id number] Blood 09/30/2025 11:0 6 AM EST 09/30/2025 11:09 AM EST us Azeb Zhang MD POINT OF CARE TEST ORDERABLES Fi nal Result Performing Organization Address City/[facility] Co de Phone Number [facility]
[address] [place] [address], * POC Glucose Once (09/30/2025 7:08 AM EST) Glucose 109 70 - 130 mg/dL 09/30/2025 7:10 AM EST [facility] Comment:Serial Number: [id number]: [id number] Blood 09/30/2025 7:08 AM EST 09/30/2025 7:10 AM EST us Azeb Zhang MD POINT OF CARE TEST ORDERABLES Fi nal Result Performing Organization Address [facility] Co de Phone Number [facility]
[address] [place] [address], * POC Glucose Once (09/29/2025 7:47 PM EST) Glucose 106 70 - 130 mg/dL 09/29/2025 7:57 PM EST [facility] Comment:Serial Number: [id number]: [id number] Blood 09/29/2025 7:47 PM EST 09/29/2025 7:57 PM EST us Tawanda Liu MD POINT OF CARE TEST ORDERABLES Final Result Performing Organization Address [facility] Co de Phone Number [facility]
[address] [place] [address], * (ABNORMAL) POC Glucose Once (09/29/2025 4:08 PM EST) Glucose 158(H) 70 - 130 mg/dL 09/29/2025 4:10 PM EST [facility] Comment:Serial Number: [id number]: [id number] Blood 09/29/2025 4:08 PM EST 09/29/2025 4:10 PM EST Tawanda Liu MD POINT OF CARE TEST ORDERABLES Final Result [facility]
[address] [place] [address], * (ABNORMAL) POC Glucose Once (09/29/2025 11:14 AM EST) Pathologist [facility] [place] Glucose 167(H) 70 - 130 mg/dL 09/29/2025 11:17 AM EST [facility] Comment:Serial Number: [id number]: [id number] Blood 09/29/2025 11:1 4 AM EST 09/29/2025 11:17 AM EST Tawanda Liu MD POINT OF CARE TEST ORDERABLES Final Result Performing Organization Address City/[facility] Co de Phone Number [facility]
[address] [place] [address], * (ABNORMAL) CBC Auto Differential (09/29/2025 6:58 AM EST) WBC 11.28(H) 3.40 - 10.80 10*3/mm3 09/29/2025 7:34 AM EST [facility] RBC 4.59 3.77 - 5.28 10*6/mm3 09/29/2025 7:34 AM EST [facility] Hemoglobin 11.8(L) 12.0 - 15.9 g/dL 09/29/2025 7:34 AM EST [facility] Hematocrit 36.3 34.0 - 46.6 % 09/29/2025 7:34 AM EST [facility] MCV 79.1 79.0 - 97.0 fL 09/29/2025 7:34 AM [facility] MCH 25.7(L) 26.6 - 33.0 pg 09/29/2025 7:34 AM [facility] MCHC 32.5 31.5 - 35.7 g/dL 09/29/2025 7:34 AM [facility] RDW 17.2(H) 12.3 - 15.4 % 09/29/2025 7:34 AM [facility] RDW-SD 48.6 37.0 - 54.0 fl 09/29/2025 7:34 AM [facility] MPV 8.6 6.0 - 12.0 fL 09/29/2025 7:34 AM [facility] Platelets 250 140 - 450 10*3/mm3 09/29/2025 7:34 AM [facility] Neutrophil % 75.1 42.7 - 76.0 % 09/29/2025 7:34 AM [facility] Lymphocyte % 13.8(L) 19.6 - 45.3 % 09/29/2025 7:34 AM [facility] Monocyte % 8.5 5.0 - 12.0 % 09/29/2025 7:34 AM [facility] Eosinophil % 0.6 0.3 - 6.2 % 09/29/2025 7:34 AM [facility] Basophil % 0.5 0.0 - 1.5 % 09/29/2025 7:34 AM [facility] Immature Grans % 1.5(H) 0.0 - 0.5 % 09/29/2025 7:34 AM [facility] Neutrophils, Absolute 8.46(H) 1.70 - 7.00 10*3/mm3 09/29/2025 7:34 AM [facility] Lymphocytes, Absolute 1.56 0.70 - 3.10 10*3/mm3 09/29/2025 7:34 AM [facility] Monocytes, Absolute 0.96(H) 0.10 - 0.90 10*3/mm3 09/29/2025 7:34 AM EST [facility] Eosinophils, Absolute 0.07 0.00 - 0.40 10*3/mm3 09/29/2025 7:34 AM EST [facility] Basophils, Absolute 0.06 0.00 - 0.20 10*3/mm3 09/29/2025 7:34 AM EST [facility] Immature Grans, Absolute 0.17(H) 0.00 - 0.05 10*3/mm3 09/29/2025 7:34 AM EST [facility] nRBC 0.0 0.0 - 0.2 /100 WBC 09/29/2025 7:34 AM EST [facility] Blood Venipuncture / Unknown 09/29/2025 6:58 AM EST 09/29/2025 7:03 AM EST us Tawanda Liu MD LAB BLOOD ORDERABLES Final Re sult Performing Organization Address City/[facility]/ZIP Co de Phone Number [facility]
[address] [place] [address], * (ABNORMAL) Magnesium (09/29/2025 6:58 AM EST) Magnesium 2.9(H) 1.6 - 2.4 mg/dL 09/29/2025 7:29 AM EST [facility] Blood Venipuncture / Unknown 09/29/2025 6:58 AM EST 09/29/2025 7:03 AM EST us Tawanda Liu MD LAB BLOOD ORDERABLES Final Re sult [facility]
[address] [place] [address], * POC Glucose Once (09/29/2025 6:54 AM EST) Glucose 102 70 - 130 mg/dL 09/29/2025 6:57 AM EST [facility] Comment:Serial Number: [id number]: [id number] Blood 09/29/2025 6:54 AM EST 09/29/2025 6:57 AM EST us Tawanda Liu MD POINT OF CARE TEST ORDERABLES Final Result Performing Organization Address City/[facility]/ZIP Co de Phone Number [facility]
[address] [place] [address], * Phosphorus (09/29/2025 12:55 AM EST) Phosphorus 3.3 2.5 - 4.5 mg/dL 09/29/2025 1:40 AM EST [facility] Blood Venipuncture / Unknown 09/29/2025 12:55 AM EST 09/29/2025 1:12 AM EST us Tawanda Liu MD LAB BLOOD ORDERABLES Final Re sult Performing Organization Address City/[facility] Co de Phone Number [facility]
[address] [place] [address], * Potassium (09/28/2025 8:46 PM EST) Potassium 4.4 3.5 - 5.2 mmol/L 09/28/2025 9:19 PM EST [facility] Blood Venipuncture / Unknown 09/28/2025 8:46 PM EST 09/28/2025 8:53 PM EST us Tawanda Liu MD LAB BLOOD ORDERABLES Final Re sult Performing Organization Address City/[facility] Co de Phone Number [facility]
[address] [place] [address], * POC Glucose Once (09/28/2025 7:41 PM EST) Glucose 102 70 - 130 mg/dL 09/28/2025 7:44 PM EST [facility] Comment:Serial Number: [id number]: [id number] Blood 09/28/2025 7:41 PM EST 09/28/2025 7:44 PM EST us Tawanda Liu MD POINT OF CARE TEST ORDERABLES Final Result Performing Organization Address City/[facility] Co de Phone Number [facility]
[address] [place] [address], * POC Glucose Once (09/28/2025 5:13 PM EST) Glucose 86 70 - 130 mg/dL 09/28/2025 5:15 PM EST [facility] Comment:Serial Number: [id number]: [id number] Blood 09/28/2025 5:13 PM EST 09/28/2025 5:15 PM EST us Tawanda Liu MD POINT OF CARE TEST ORDERABLES Final Result Performing Organization Address [facility] Phone Number [facility]
[address] [place] [address], * POC Glucose Once (09/28/2025 11:39 AM EST) Glucose 97 70 - 130 mg/dL 09/28/2025 11:41 AM EST [facility] Comment:Serial Number: [id number]: [id number] Blood 09/28/2025 11:3 9 AM EST 09/28/2025 11:41 AM EST us Tawanda Liu MD POINT OF CARE TEST ORDERABLES Final Result Performing Organization Address City/[facility] Co de Phone Number [facility]
[address] [place] [address], * (ABNORMAL) CBC Auto Differential (09/28/2025 10:34 AM EST) [facility] WBC 10.18 3.40 - 10.80 10*3/mm3 09/28/2025 10:45 AM EST [facility] RBC 4.35 3.77 - 5.28 10*6/mm3 09/28/2025 10:45 AM EST [facility] Hemoglobin 10.8(L) 12.0 - 15.9 g/dL 09/28/2025 10:45 AM EST [facility] Hematocrit 35.3 34.0 - 46.6 % 09/28/2025 10:45 AM EST [facility] MCV 81.1 79.0 - 97.0 fL 09/28/2025 10:45 AM EST [facility] MCH 24.8(L) 26.6 - 33.0 pg 09/28/2025 10:45 AM EST [facility] MCHC 30.6(L) 31.5 - 35.7 g/dL 09/28/2025 10:45 AM EST [facility] RDW 16.8(H) 12.3 - 15.4 % 09/28/2025 10:45 AM EST [facility] RDW-SD 49.0 37.0 - 54.0 fl 09/28/2025 10:45 AM EST [facility] MPV 8.8 6.0 - 12.0 fL 09/28/2025 10:45 AM EST [facility] Platelets 232 140 - 450 10*3/mm3 09/28/2025 10:45 AM EST [facility] Neutrophil % 77.3(H) 42.7 - 76.0 % 09/28/2025 10:45 AM EST [facility] Lymphocyte % 12.2(L) 19.6 - 45.3 % 09/28/2025 10:45 AM EST [facility] Monocyte % 7.4 5.0 - 12.0 % 09/28/2025 10:45 AM EST [facility] Eosinophil % 1.2 0.3 - 6.2 % 09/28/2025 10:45 AM EST [facility] Basophil % 0.4 0.0 - 1.5 % 09/28/2025 10:45 AM EST [facility] Immature Grans % 1.5(H) 0.0 - 0.5 % 09/28/2025 10:45 AM [facility] Neutrophils, Absolute 7.88(H) 1.70 - 7.00 10*3/mm3 09/28/2025 10:45 AM EST [facility] Lymphocytes, Absolute 1.24 0.70 - 3.10 10*3/mm3 09/28/2025 10:45 AM [facility] Monocytes, Absolute 0.75 0.10 - 0.90 10*3/mm3 09/28/2025 10:45 AM [facility] Eosinophils, Absolute 0.12 0.00 - 0.40 10*3/mm3 09/28/2025 10:45 AM EST [facility] Basophils, Absolute 0.04 0.00 - 0.20 10*3/mm3 09/28/2025 10:45 AM [facility] Immature Grans, Absolute 0.15(H) 0.00 - 0.05 10*3/mm3 09/28/2025 10:45 AM [facility] nRBC 0.0 0.0 - 0.2 /100 WBC 09/28/2025 10:45 AM [facility] Blood Venipuncture / Unknown 09/28/2025 10:34 AM EST 09/28/2025 10:39 AM EST us Tawanda Liu MD LAB BLOOD ORDERABLES Final Re sult [facility]
[address] [place] [address], * (ABNORMAL) Phosphorus (09/28/2025 10:34 AM EST) Phosphorus 1.3(LL) 2.5 - 4.5 mg/dL 09/28/2025 11:07 AM EST [facility] Blood Venipuncture / Unknown 09/28/2025 10:34 AM EST 09/28/2025 10:39 AM EST Tawanda Liu MD LAB BLOOD ORDERABLES Final Re sult [facility]
[address] [place] [address], * (ABNORMAL) Magnesium (09/28/2025 10:34 AM EST) Pathologist [facility] [place] Magnesium 1.5(L) 1.6 - 2.4 mg/dL 09/28/2025 11:06 AM EST [facility] Blood Venipuncture / Unknown 09/28/2025 10:34 AM EST 09/28/2025 10:39 AM EST Tawanda Liu MD LAB BLOOD ORDERABLES Final Re sult Performing Organization Address City/[facility] de Phone Number [facility]
[address] [place] [address], * (ABNORMAL) Basic Metabolic Panel (09/28/2025 10:34 AM EST) Pathologist [facility] [place] Glucose 106(H) 65 - 99 mg/dL 09/28/2025 11:06 AM EST [facility] BUN 4.8(L) 8.0 - 23.0 mg/dL 09/28/2025 11:06 AM EST [facility] Creatinine 0.70 0.57 - 1.00 mg/dL 09/28/2025 11:06 AM EST [facility] Sodium 143 136 - 145 mmol/L 09/28/2025 11:06 AM EST [facility] Potassium 3.4(L) 3.5 - 5.2 mmol/L 09/28/2025 11:06 AM EST [facility] Chloride 115(H) 98 - 107 mmol/L 09/28/2025 11:06 AM EST [facility] CO2 18.0(L) 22.0 - 29.0 mmol/L 09/28/2025 11:06 AM EST [facility] Calcium 7.8(L) 8.6 - 10.5 mg/dL 09/28/2025 11:06 AM EST [facility] BUN/Creatinine Ratio 6.9(L) 7.0 - 25.0 09/28/2025 11:06 AM EST [facility] Anion Gap 10.0 5.0 - 15.0 mmol/L 09/28/2025 11:06 AM EST [facility] eGFR 97.9 >60.0 mL/min/1.7 3 09/28/2025 11:06 AM EST [facility] Blood Venipuncture / Unknown 09/28/2025 10:34 AM EST 09/28/2025 10:39 AM EST [facility] - 09/28/2025 11:06 AM EST GFR Categories in Chronic Kidney Disease [...] not include race as a factor us Tawanda Liu MD LAB BLOOD ORDERABLES Final Re sult [facility]
[address] [place] [address], * POC Glucose Once (09/28/2025 7:04 AM EST) Glucose 85 70 - 130 mg/dL 09/28/2025 7:06 AM EST [facility] Comment:Serial Number: [id number]: [id number] Blood 09/28/2025 7:04 AM EST 09/28/2025 7:06 AM EST us Tawanda Liu MD POINT OF CARE TEST ORDERABLES Final Result Performing Organization Address City/[facility]/ZIP Co de Phone Number [facility]
[address] [place] [address], * POC Glucose Once (09/27/2025 7:24 PM EST) Glucose 129 70 - 130 mg/dL 09/27/2025 7:26 PM EST [facility] Comment:Serial Number: [id number]: [id number] Blood 09/27/2025 7:24 PM EST 09/27/2025 7:26 PM EST us Tawanda Liu MD POINT OF CARE TEST ORDERABLES Final Result Performing Organization Address [facility] Co de Phone Number [facility]
[address] [place] [address], * POC Glucose Once (09/27/2025 5:56 PM EST) Glucose 90 70 - 130 mg/dL 09/27/2025 5:58 PM EST [facility] Comment:Serial Number: [id number]: [id number] Blood 09/27/2025 5:56 PM EST 09/27/2025 5:58 PM EST us Tawanda Liu MD POINT OF CARE TEST ORDERABLES Final Result Performing Organization Address City/[facility]/ZIP Co de Phone Number [facility]
[address] [place] [address], * (ABNORMAL) POC Glucose Once (09/27/2025 4:46 PM EST) Glucose 69(L) 70 - 130 mg/dL 09/27/2025 4:49 PM EST [facility] Comment:Serial Number: [id number]: [id number] Blood 09/27/2025 4:46 PM EST 09/27/2025 4:49 PM EST Tawanda Liu MD POINT OF CARE TEST ORDERABLES Final Result [facility]
[address] [place] [address], * (ABNORMAL) Blood Gas, Arterial With Co-Ox (09/27/2025 1:46 PM EST) Site Left Brachial 09/27/2025 1:44 PM EST [facility] Don's Test N/A 09/27/2025 1:44 PM EST [facility] pH, Arterial 7.387 7.350 - 7.450 pH units 09/27/2025 1:44 PM EST [facility] pCO2, Arterial 31.5(L) 35.0 - 45.0 mm Hg 09/27/2025 1:44 PM EST [facility] Comment:84 Value below refer ence range pO2, Arterial 74.9(L) 83.0 - 108.0 mm Hg 09/27/2025 1:44 PM EST [facility] Comment:84 Value below refer ence range HCO3, Arterial 18.9(L) 20.0 - 26.0 mmol/L 09/27/2025 1:44 PM EST [facility] Base Excess, Arterial -5.3(L) 0.0 - 2.0 mmol/L 09/27/2025 1:44 PM EST [facility] Hemoglobin, Blood Gas 9.9(L) 14 - 18 g/dL 09/27/2025 1:44 PM EST [facility] Comment:84 Value below refer ence range Hematocrit, Blood Gas 30.4(L) 38.0 - 51.0 % 09/27/2025 1:44 PM [facility] Oxyhemoglobin 95.2 94 - 99 % 09/27/2025 1:44 PM [facility] Methemoglobin 0.20 0.00 - 1.50 % 09/27/2025 1:44 PM [facility] Carboxyhemoglobin 0.9 0 - 2 % 025 1:44 PM [facility] CO2 Content 19.8(L) 22 - 33 mmol/L 09/27/2025 1:44 PM [facility] TH[facility] Temperature 37.0 09/27/2025 1:44 PM [facility] Barometric Pressure for Blood Gas 09/27/2025 1:44 PM [facility] Comment:N/A Modality Room Air 09/27/2025 1:44 PM [facility] FIO2 21 % 09/27/2025 1:44 PM [facility] Rate 0 Breaths/ minute 09/27/2025 1:44 PM [facility] PIP 0 cmH2O 09/27/2025 1:44 PM [facility] Comment:Meter: [id number] Store Product Demonstrator: [id number] IPAP 0 cm H2O 09/27/2025 1:44 PM [facility] EPAP 0 cm H2O 09/27/2025 1:44 PM [facility] TH[facility] pH, Temp Corrected 7.387 pH Units 2024 1:44 PM [facility] pCO2, Temperature Corrected 31.5(L) 35 - 45 mm Hg 09/27/2025 1:44 PM [facility] TH[facility] pO2, Temperature Corrected 74.9(L) 83 - 108 mm Hg 09/27/2025 1:44 PM [facility] Arterial Blood 09/27/2025 1: 46 PM EST 09/27/2025 1:47 PM EST Tawanda Liu MD LAB BLOOD ORDERABLES Final Re sult [facility]
[address] [place] [address], [place] * Folate (09/27/2025 11:38 AM EST) Pathologist [facility] Folate 8.75 4.78 - 24.20 ng/mL 09/27/2025 8:24 PM EST [facility] Blood Venipuncture / Unknown 09/27/2025 11:38 AM EST 09/27/2025 12:41 PM EST Narrative [facility] - 09/27/2025 8:24 PM EST Results may be falsely increased if patient taking Biotin. Emeli JMIENEZ LAB BLOOD ORDERABLES Final Resu lt Performing Organization Address City/[facility]/ZIP Co de Phone Number [facility]
[address] [place] [address], * Vitamin B12 (09/27/2025 11:38 AM EST) [facility] Vitamin B-12 641 211 - 946 pg/mL 09/27/2025 8:24 PM EST [facility] Blood Venipuncture / Unknown 09/27/2025 11:38 AM EST 09/27/2025 12:41 PM EST Narrative [facility] - 09/27/2025 8:24 PM EST Results may be falsely increased if patient taking Biotin. Emeli JIMENEZ LAB BLOOD ORDERABLES Final Resu lt [facility]
[address] [place] [address], * (ABNORMAL) Potassium (09/27/2025 11:38 AM EST) Pathologist [facility] [place] Potassium 3.3(L) 3.5 - 5.2 mmol/L 09/27/2025 12:56 PM EST [facility] Blood Venipuncture / Unknown 09/27/2025 11:38 AM EST 09/27/2025 12:41 PM EST us Tawanda Liu MD LAB BLOOD ORDERABLES Final Re sult Performing Organization Address City/[facility]/ZIP Co de Phone Number [facility]
[address] [place] [address], * POC Glucose Once (09/27/2025 11:23 AM EST) [facility] Glucose 105 70 - 130 mg/dL 09/27/2025 11:28 AM EST [facility] Comment:Serial Number: [id number]: [id number] Blood 09/27/2025 11:2 3 AM EST 09/27/2025 11:28 AM EST us Tawanda Liu MD POINT OF CARE TEST ORDERABLES Final Result Performing Organization Address [facility] de Phone Number [facility]
[address] [place] [address], * Clostridioides difficile toxin Ag, Reflex - Stool, Per Rectum (09/27/2025 10:49 AM EST) Pathologist [facility] [place] C.diff Toxin Ag Negative Negative DISK DIFFUSION 09/27/2025 12:32 PM EST [facility] Stool Specimen from rectum / Unknown Collection / Unknown 09/27/2025 10:49 AM EST 09/27/2025 10:49 AM EST Narrative [facility] - 09/27/2025 12:32 PM EST DNA from a toxigenic strain of C.difficile was detected, although the free toxin itself was not detected. These findings are consistent with C.difficile colonization and may not reflect actual C.difficile infection. Clinical correlation needed. Luciano Thibodeaux MD MICROBIOLOGY - GENERAL ORDER DAVID Final Result Performing Organization Address [facility] Co de Phone Number [facility]
[address] [place] [address], * (ABNORMAL) Clostridioides difficile Toxin, PCR - Stool, Per Rectum (09/27/2025 10:49 AM EST) [facility] Toxigenic C. difficile by PCR Detected( A) Not Detected [email or web address] 09/27/2025 12:33 PM EST [facility] Stool Specimen from rectum / Unknown Collection / Unknown 09/27/2025 10:49 AM EST 09/27/2025 10:49 AM EST [facility] - 09/27/2025 12:33 PM EST DNA from a toxigenic strain of C.difficile has been detected. Antigen testing for the presence of free C.difficile toxin is currently in progress, to help determine the clinical significance of this PCR result. Luciano Thibodeaux MD MICROBIOLOGY - GENERAL ORDER DAVID Final Result Performing Organization Address [facility] de Phone Number [facility]
[address] [place] [address], * Gastrointestinal Panel, PCR - Stool, Per Rectum (09/27/2025 10:49 AM EST) [facility] Campylobacter Not Detected Not Detected BIOFIRE TORCH 09/27/2025 12:18 PM EST [facility] Plesiomonas shigelloides Not Detected Not Detected BIOFIRE TORCH 09/27/2025 12:18 PM EST [facility] Salmonella Not Detected Not Detected BIO[employer]RE [employer]ORCH 09/27/2025 12:18 PM EST [facility] Vibrio Not Detected Not Detected [employer]ORCH 09/27/2025 12:18 PM EST [facility] Vibrio cholerae Not Detected Not Detected [employer]RE TORCH 09/27/2025 12:18 PM [facility] Yersinia enterocolitica Not Detected Not Detected BIOFIRE TORCH 09/27/2025 12:18 PM [facility] Enteroaggregative E. coli (EAEC) Not Detected Not Detected BIOFIRE TORCH 09/27/2025 12:18 PM [facility] Enteropathogenic E. coli (EPEC) Not Detected Not Detected BIOFIRE TORCH 09/27/2025 12:18 PM [facility] Enterotoxigenic E. coli (ETEC) lt/st Not Detected Not Detected BIOFIRE TORCH 09/27/2025 12:18 PM [facility] Shiga-like toxin-producing E. coli (STEC) stx1/stx2 Not Detected Not Detected BIOFIRE TORCH 09/27/2025 12:18 PM [facility] Shigella/Enteroinv asive E. coli (EIEC) Not Detected Not Detected [employer]FIRE TORCH 09/27/2025 12:18 PM [facility] Cryptosporidium Not Detected Not Detected BIO[employer] TORCH 09/27/2025 12:18 PM [facility] Cyclospora cayetanensis Not Detected Not Detected [employer]IO[employer]RE TORCH 09/27/2025 12:18 PM [facility] Entamoeba histolytica Not Detected Not Detected [employer]ORCH 09/27/2025 12:18 PM [facility] Giardia lamblia Not Detected Not Detected [employer]ORCH 09/27/2025 12:18 PM [facility] Adenovirus F40/41 Not Detected Not Detected [employer]ORCH 09/27/2025 12:18 PM [facility] Astrovirus Not Detected Not Detected [facility]ORCH 09/27/2025 12:18 PM [facility] Norovirus GI/GII Not Detected Not Detected BIO[employer]RE TORCH 09/27/2025 12:18 PM [facility] Rotavirus A Not Detected Not Detected BIOFIRE [employer]ORCH 09/27/2025 12:18 PM [facility] Sapovirus (I, II, IV or V) Not Detected Not Detected BIOFIRE TORCH 09/27/2025 12:18 PM EST [facility] Stool Specimen from rectum / Unknown Collection / Unknown 09/27/2025 10:49 AM EST 09/27/2025 10:49 AM EST Luciano Thibodeaux MD MICROBIOLOGY - GENERAL ORDER DAVID Final Result [facility]
[address] [place] [address], * POC Glucose Once (09/27/2025 7:23 AM EST) Glucose 80 70 - 130 mg/dL 09/27/2025 7:25 AM EST [facility] Comment:Serial Number: [id number]: [id number] Blood 09/27/2025 7:23 AM EST 09/27/2025 7:25 AM EST Tawanda Liu MD POINT OF CARE TEST ORDERABLES Final Result Performing Organization Address City/[facility] Co de Phone Number [facility]
[address] [place] [address], * (ABNORMAL) Iron Profile w/o Ferritin (09/27/2025 7:08 AM EST) Iron 33(L) 37 - 145 mcg/dL 09/27/2025 12:18 PM EST [facility] Iron Saturation (TSAT) 20 20 - 50 % 09/27/2025 12:18 PM EST [facility] Transferrin 109(L) 200 - 360 mg/dL 09/27/2025 12:18 PM EST [facility] TIBC 162(L) 298 - 536 mcg/dL 09/27/2025 12:18 PM EST [facility] Blood Venipuncture / Unknown 09/27/2025 7:08 AM EST 09/27/2025 8:50 AM EST Emeli JIMENEZ LAB BLOOD ORDERABLES Final Resu lt Performing Organization Address City/[facility]/ZIP Co de Phone Number [facility]
[address] [place] [address], * (ABNORMAL) Ferritin (09/27/2025 7:08 AM EST) Ferritin 536.00(H) 13.00 - 150.00 ng/mL 09/27/2025 12:18 PM EST [facility] Blood Venipuncture / Unknown 09/27/2025 7:08 AM EST 09/27/2025 8:50 AM EST Narrative [facility] - 09/27/2025 12:18 PM EST Results may be falsely decreased if patient taking Biotin. Emeli JIMENEZ LAB BLOOD ORDERABLES Final Resu lt Performing Organization Address [facility] Co de Phone Number [facility]
[address] [place] [address], * Cortisol (09/27/2025 7:08 AM EST) Cortisol 18.50 mcg/dL 09/27/2025 11:34 AM EST [facility] Blood Venipuncture / Unknown 09/27/2025 7:08 AM EST 09/27/2025 8:50 AM EST Narrative [facility] - 09/27/2025 11:34 AM EST Cortisol Reference Ranges: Cortisol 6AM - 10AM Range: 6.02-18.40 mcg/dl Cortisol 4PM - 8PM Range: 2.68-10.50 mcg/dl Results may be falsely increased if patient taking Biotin. Emeli JIMENEZ LAB BLOOD ORDERABLES Final Resu lt Performing Organization Address City/[facility]/ZIP Co de Phone Number [facility]
[address] [place] [address], * (ABNORMAL) Basic Metabolic Panel (09/27/2025 7:08 AM EST) Glucose 71 65 - 99 mg/dL 09/27/2025 9:28 AM EST [facility] BUN 12.8 8.0 - 23.0 mg/dL 09/27/2025 9:28 AM [facility] Creatinine 0.54(L) 0.57 - 1.00 mg/dL 09/27/2025 9:28 AM [facility] Sodium 140 136 - 145 mmol/L 09/27/2025 9:28 AM [facility] Potassium 3.5 3.5 - 5.2 mmol/L 09/27/2025 9:28 AM [facility] Chloride 113(H) 98 - 107 mmol/L 09/27/2025 9:28 AM [facility] CO2 16.9(L) 22.0 - 29.0 mmol/L 09/27/2025 9:28 AM [facility] Calcium 7.7(L) 8.6 - 10.5 mg/dL 09/27/2025 9:28 AM [facility] BUN/Creatinine Ratio 23.7 7.0 - 25.0 09/27/2025 9:28 AM [facility] Anion Gap 10.1 5.0 - 15.0 mmol/L 09/27/2025 9:28 AM [facility] eGFR 104.2 >60.0 mL/min/1.7 3 09/27/2025 9:28 AM [facility] Blood Venipuncture / Unknown 09/27/2025 7:08 AM EST 09/27/2025 8:50 AM EST [facility] - 09/27/2025 9:28 AM EST GFR Categories in Chronic Kidney Disease [...] does not include race as a factor Regla Herrera II DO LAB BLOOD ORDERABLES Trisha l Result Performing Organization Address City/[facility] Co de Phone Number [facility]
[address] [place] [address], * Reticulocytes (09/27/2025 5:14 AM EST) Pathologist [facility] [place] Reticulocyte % 0.95 0.70 - 1.90 % 09/27/2025 1:51 PM EST [facility] Reticulocyte Absolute 0.0384 0.0200 - 0.1300 10*6/mm3 09/27/2025 1:51 PM EST [facility] Blood Venipuncture / Unknown 09/27/2025 5:14 AM EST 09/27/2025 5:43 AM EST Emeli JIMENEZ LAB BLOOD ORDERABLES Final Resu lt Performing Organization Address [facility] de Phone Number [facility]
[address] [place] [address], * (ABNORMAL) CBC (No Diff) (09/27/2025 5:14 AM EST) WBC 17.57(H) 3.40 - 10.80 10*3/mm3 09/27/2025 5:50 AM EST [facility] RBC 4.01 3.77 - 5.28 10*6/mm3 09/27/2025 5:50 AM EST [facility] Hemoglobin 10.4(L) 12.0 - 15.9 g/dL 09/27/2025 5:50 AM [facility] Hematocrit 32.3(L) 34.0 - 46.6 % 09/27/2025 5:50 AM [facility] MCV 80.5 79.0 - 97.0 fL 09/27/2025 5:50 AM [facility] MCH 25.9(L) 26.6 - 33.0 pg 09/27/2025 5:50 AM [facility] MCHC 32.2 31.5 - 35.7 g/dL 09/27/2025 5:50 AM [facility] RDW 16.3(H) 12.3 - 15.4 % 09/27/2025 5:50 AM [facility] RDW-SD 47.5 37.0 - 54.0 fl 09/27/2025 5:50 AM [facility] MPV 8.3 6.0 - 12.0 fL 09/27/2025 5:50 AM [facility] Platelets 211 140 - 450 10*3/mm3 09/27/2025 5:50 AM [facility] Blood Venipuncture / Unknown 09/27/2025 5:14 AM EST 09/27/2025 5:43 AM EST Regla Herrera II, DO LAB BLOOD ORDERABLES Trisha l Result [facility]
[address] [place] [address], * POC Glucose Once (09/26/2025 7:53 PM EST) [facility] Signature Glucose 98 70 - 130 mg/dL 09/26/2025 7:56 PM [facility] Comment:Serial Number: [id number]: [id number] Blood 09/26/2025 7:53 PM EST 09/26/2025 7:56 PM EST us Regla M Sharon II, DO POINT OF CARE TEST ORDERA BLES Final Result Performing Organization Address [facility] Co de Phone Number [facility]
[address] [place] [address], * STAT Lactic Acid, Reflex (09/26/2025 7:41 PM EST) Lactate 1.6 0.5 - 2.0 mmol/L 09/26/2025 8:30 PM EST [facility] Comment:Falsely depressed re sults may occur on samples drawn from patients receiving N-Acetylcysteine (NAC) or Metamizole. Blood Venipuncture / Unknown 09/26/2025 7:41 PM EST 09/26/2025 8:01 PM EST us Luciano Thibodeaux MD LAB BLOOD ORDERABLES Final R esult Performing Organization Address [facility] de Phone Number [facility]
[address] [place] [address], * (ABNORMAL) STAT Lactic Acid, Reflex (09/26/2025 4:54 PM EST) [facility] Signature Lactate 3.6(HH) 0.5 - 2.0 mmol/L 09/26/2025 5:43 PM EST [facility] Comment:Falsely depressed re sults may occur on samples drawn from patients receiving N-Acetylcysteine (NAC) or Metamizole. Blood Venipuncture / Unknown 09/26/2025 4:54 PM EST 09/26/2025 5:04 PM EST us Luciano Thibodeaux MD LAB BLOOD ORDERABLES Final R esult Performing Organization Address [facility] Co de Phone Number [facility]
[address] [place] [address], * POC Glucose Once (09/26/2025 4:48 PM EST) Glucose 117 70 - 130 mg/dL 09/26/2025 4:51 PM EST [facility] Comment:Serial Number: [id number]: [id number] Blood 09/26/2025 4:48 PM EST 09/26/2025 4:51 PM EST Regla Herrera II, POINT OF CARE TEST ORDERA BLES Final Result Performing Organization Address City/[facility]/ZIP Co de Phone Number [facility]
[address] [place] [address], * Blood Culture - Blood, Hand, Right (09/26/2025 1:47 PM EST) Blood Culture No growth at 5 days 10/01/2025 2:00 PM EST [facility] Blood Structure of right hand / Unknown Venipuncture / Unknown 09/26/2025 1:47 PM EST 09/26/2025 1:56 PM EST Narrative [facility] - 10/01/2025 2:00 PM EST Less than seven (7) mL's of blood was collected. Insufficient quantity may yield false negative results. Luciano Thibodeaux MD MICROBIOLOGY - GENERAL ORDER DAVID Final Result Performing Organization Address [facility] Co de Phone Number [facility]
[address] [place] [address], * (ABNORMAL) STAT Lactic Acid, Reflex (09/26/2025 1:47 PM EST) Lactate 4.6(HH) 0.5 - 2.0 mmol/L 09/26/2025 2:13 PM EST [facility] Comment:Falsely depressed re sults may occur on samples drawn from patients receiving N-Acetylcysteine (NAC) or Metamizole. Blood Venipuncture / Unknown 09/26/2025 1:47 PM EST 09/26/2025 1:52 PM EST Luciano Thibodeaux MD LAB BLOOD ORDERABLES Final R esult Performing Organization Address City/[facility]/ZIP Co de Phone Number [facility]
[address] [place] [address], * Blood Culture - Blood, Hand, Left (09/26/2025 1:35 PM EST) [facility] Blood Culture No growth at 5 days 10/01/2025 2:00 PM EST [facility] Blood Structure of left hand / Unknown Venipuncture / Unknown 09/26/2025 1:35 PM EST 09/26/2025 1:57 PM EST Narrative [facility] - 10/01/2025 2:00 PM EST Less than seven (7) mL's of blood was collected. Insufficient quantity may yield false negative results. Luciano Thibodeaux MD MICROBIOLOGY - GENERAL ORDER DAVID Final Result Performing Organization Address [facility] Co de Phone Number [facility]
[address] [place] [address], * (ABNORMAL) Blood Gas, Venous With Co-Ox (09/26/2025 1:07 PM EST) [facility] Site Nurse/Dr Draw 09/26/2025 1:08 PM EST [facility] THER[facility]Y pH, Venous 7.254(LL ) 7.310 - 7.410 pH Units 09/26/2025 1:08 PM EST [facility] Comment:84 Value below refer ence range pCO2, Venous 43.4 41.0 - 51.0 mm Hg 09/26/2025 1:08 PM EST [facility] pO2, Venous 20.3(L) 27.0 - 53.0 mm Hg 09/26/2025 1:08 PM EST [facility] Comment:84 Value below refer ence range HCO3, Venous 19.2(L) 22.0 - 28.0 mmol/L 09/26/2025 1:08 PM [facility] THERAP[facility] Base Excess, Venous -7.8(L) -2.0 - 2.0 mmol/L 09/26/2025 1:08 PM [facility] THERAPY Hemoglobin, Blood Gas 13.8(L) 14 - 18 g/dL 09/26/2025 1:08 PM [facility] THERAP[facility] Oxyhemoglobin Venous 22.1 % 09/08 1:08 PM [facility] THERAP[facility] Comment:84 Value below refer ence range Methemoglobin Venous 0.3 % 09/08 1:08 PM [facility] THER[facility] Carboxyhemoglobin Venous 0.7 % 09/26/2025 1:08 PM [facility] THERAPY CO2 Content 20.5(L) 22 - 33 mmol/L 09/26/2025 1:08 PM [facility] THERAPY Temperature 37.0 09/26/2025 1:08 PM [facility] THERAP[facility] Barometric Pressure for Blood Gas 09/26/2025 1:08 PM [facility] THER[facility] Comment:N/A Modality Room Air 09/26/2025 1:08 PM [facility] THERAPY FIO2 21 % 09/26/2025 1:08 PM [facility] THERAP[facility] Rate 0 Breaths/ minute 09/26/2025 1:08 PM [facility] THERAPY PIP 0 cmH2O 09/26/2025 1:08 PM [facility] THERAP[facility] Comment:Meter: [id number] Store Product Demonstrator: [id number] IPAP 0 cm H2O 09/26/2025 1:08 PM [facility] THERAPY EPAP 0 cm H2O 09/26/2025 1:08 PM [facility] THERAP[facility] Venous Blood 09/26/2025 1:07 PM EST 09/26/2025 1:07 PM EST us Luciano Thibodeaux MD LAB BLOOD ORDERABLES Final R esult [facility]
[address] [place] [address], [place] * CT Abdomen Pelvis With Contrast (09/26/2025 12:45 PM EST) Anatomical Region Laterality Modality Abdomen, Pelvis N/A Computed Tomogra phy 09/26/2025 12:5 0 PM EST Impressions 09/26/2025 12:57 PM EST Impression: 1.Widespread colonic wall thickening, most notably involving the proximal/mid colon, concerning for colitis. 2.Additional findings as detailed above. Electronically Signed: Richar Parker MD 09/26/2025 12:57 PM EST Workstation ID: [id number] Narrative 09/26/2025 12:[address] ABDOMEN PELVIS W CONTRAST Date of Exam: 09/26/2025 12:35 PM EST Indication: diffuse abd pain, vomiting, weight loss. Comparison: 09/19/2025 Technique: Axial CT images were obtained of the abdomen and pelvis following the uneventful intravenous administration of iodinated contrast. Reconstructed coronal and sagittal images were also obtained. Automated exposure control and iterative construction methods were used. Findings: Liver: The liver is unremarkable in morphology. No focal liver lesion is seen. No biliary dilation is seen. Gallbladder: Surgically absent. Pancreas: Unremarkable. Spleen: Unremarkable. Adrenal glands: Unremarkable. Genitourinary tract: Both kidneys demonstrate multifocal cortical scarring and lobulated contours. No hydronephrosis is seen. The visualized portions of the ureters and urinary bladder appear unremarkable. Pelvic organs demonstrate no acute abnormality. Gastrointestinal tract: There is widespread colonic wall thickening, most notably involving the proximal/mid colon, concerning for colitis. Duodenal diverticulum is seen. No findings to suggest bowel obstruction. Appendix: The appendix is not identified. Other findings: No free air or free fluid is identified. No pathologically enlarged lymph nodes are seen. Vascular calcifications are present. The IVC is unremarkable. Bones and soft tissues: No acute osseous lesion is identified. There is a chronic superior endplate fracture of L1. There are mild degenerative changes within the spine. Superficial soft tissues demonstrate no acute abnormality. Lung bases: The visualized lung bases are clear. Procedure Note Richar Parker MD - 09/26/2025 CT ABDOMEN PELVIS W CONTRAST Date of Exam: 09/26/2025 12:35 PM EST Indication: diffuse abd pain, vomiting, weight loss. Comparison: 09/19/2025 Technique: Axial CT images were obtained of the abdomen and pelvisfollowing the uneventful intravenous administration of iodinated contrast.Reconstructed coronal and sagittal images were also obtained. Automatedexposure control and iterative construction methods were used. Findings: Liver: The liver is unremarkable in morphology. No focal liver lesion isseen. No biliary dilation is seen. Gallbladder: Surgically absent. Pancreas: Unremarkable. Spleen: Unremarkable. Adrenal glands: Unremarkable. Genitourinary tract: Both kidneys demonstrate multifocal cortical scarringand lobulated contours. No hydronephrosis is seen. The visualized portionsof the ureters and urinary bladder appear unremarkable. Pelvic organsdemonstrate no acute abnormality. Gastrointestinal tract: There is widespread colonic wall thickening, mostnotably involving the proximal/mid colon, concerning for colitis. Duodenaldiverticulum is seen. No findings to suggest bowel obstruction. Appendix: The appendix is not identified. Other findings: No free air or free fluid is identified. No pathologicallyenlarged lymph nodes are seen. Vascular calcifications are present. TheIVC is unremarkable. Bones and soft tissues: No acute osseous lesion is identified. There is achronic superior endplate fracture of L1. There are mild degenerativechanges within the spine. Superficial soft tissues demonstrate no acuteabnormality. Lung bases: The visualized lung bases are clear. IMPRESSION: Impression: 1.Widespread colonic wall thickening, most notably involving theproximal/mid colon, concerning for colitis. 2.Additional findings as detailed above. Electronically Signed: Richar Parker MD 09/26/2025 12:57 PM EST Workstation ID: [id number] us Luciano Thibodeaux MD IMG CT ORDERABLES Final Resu lt * CT Head Without Contrast (09/26/2025 12:45 PM EST) Anatomical Region Laterality Modality Head N/A Computed Tomogra phy 09/26/2025 12:4 7 PM EST Impressions 09/26/2025 12:49 PM EST Impression: 1.No acute intracranial abnormality identified. 2.Diffuse brain atrophy and chronic microvascular ischemic changes. Electronically Signed: Krzysztof Castano MD 09/26/2025 12:49 PM EST Workstation ID: [id number] Narrative 09/26/2025 12:[address] HEAD WO CONTRAST Date of Exam: 09/26/2025 12:35 PM EST Indication: ams. Comparison: None available. Technique: Axial CT images were obtained of the head without contrast administration. Automated exposure control and iterative construction methods were used. Findings: There is no evidence of hemorrhage. There is no mass effect or midline shift. Diffuse brain atrophy with chronic microvascular ischemic changes. There is no extracerebral collection. Ventricles are normal in size and configuration for patient's stated age. Posterior fossa is within normal limits. Calvarium and skull base appear intact. Visualized sinuses show no air fluid levels. Visualized orbits are unremarkable. Procedure Note Krzysztof Castano MD - 09/26/2025 CT HEAD WO CONTRAST Date of Exam: 09/26/2025 12:35 PM EST Indication: ams. Comparison: None available. Technique: Axial CT images were obtained of the head without contrastadministration. Automated exposure control and iterative constructionmethods were used. Findings: There is no evidence of hemorrhage. There is no mass effect or midlineshift. Diffuse brain atrophy with chronic microvascular ischemicchanges. There is no extracerebral collection. Ventricles are normal in size and configuration for patient's stated age. Posterior fossa is within normal limits. Calvarium and skull base appear intact. Visualized sinuses show no airfluid levels. Visualized orbits are unremarkable. IMPRESSION: Impression: 1.No acute intracranial abnormality identified. 2.Diffuse brain atrophy and chronic microvascular ischemic changes. Electronically Signed: Krzysztof Castano MD 09/26/2025 12:49 PM EST Workstation ID: [id number] us Luciano Thibodeaux MD [facility] CT ORDERABLES Final Resu lt * (ABNORMAL) High Sensitivity Troponin T 1Hr (09/26/2025 12:10 PM EST) HS Troponin T 24(H) <14 ng/L 09/26/2025 12:36 PM EST [facility] Troponin T Numeric Delta 0 ng/L 09/26/2025 12:36 PM EST [facility] Troponin T % Delta 0 Abnormal if >/= 20% 09/26/2025 12:36 PM EST [facility] Blood Venipuncture / Unknown 09/26/2025 12:10 PM EST 09/26/2025 12:13 PM EST Narrative [facility] - 09/26/2025 12:36 PM EST High Sensitive Troponin T Reference [...] injury due to an underlying chronic condition. Luciano Thibodeaux MD LAB BLOOD ORDERABLES Final R esult Performing Organization Address City/[facility]/ZIP Co de Phone Number [facility]
[address] [place] [address], * Urine Culture - Urine, Straight Cath (09/26/2025 11:34 AM EST) Pathologist [facility] [place] Urine Culture No growth MARCO 09/27/2025 10:42 AM EST [facility] Urine (Straight Cath) Collection / Unknown 09/26/2025 11:34 AM EST 09/26/2025 11:43 AM EST Luciano Thibodeaux MD MICROBIOLOGY - GENERAL ORDER DAVID Final Result [facility]
[address] [place] [address], [place] [phone] * (ABNORMAL) Urinalysis, Microscopic Only - Straight Cath (09/26/2025 11:34 AM EST) RBC, UA 3-5(A) None Seen, 0-2 /HPF 09/26/2025 12:27 PM EST [facility] WBC, UA 3-5(A) None Seen, 0-2 /HPF 09/26/2025 12:27 PM [facility] Bacteria, UA 1+(A) None Seen /HPF 09/26/2025 12:27 PM [facility] Squamous Epithelial Cells, UA 0-2 None Seen, 0-2 /HPF 09/26/2025 12:27 PM EST [facility] Hyaline Casts, UA 0-2 None Seen /LPF 09/26/2025 12:27 PM [facility] Mucus, UA Moderate/2+(A) None Seen, Trace /HPF 09/26/2025 12:27 PM [facility] Methodology Manual Light Microscopy 09/26/2025 12:27 PM [facility] Urine (Straight Cath) Collection / Unknown 09/26/2025 11:34 AM EST 09/26/2025 11:43 AM EST Luciano Thibodeaux MD URINE ORDERABLES Final Resul t [facility]
[address] [place] [address], * (ABNORMAL) Urinalysis With Microscopic If Indicated (No Culture) - Straight Cath (09/26/2025 11:34 AM EST) Color, UA Dark Yellow(A) Yellow, Straw 09/26/2025 12:12 PM [facility] Appearance, UA Cloudy(A) Clear 09/26/2025 12:12 PM [facility] pH, UA 6.0 5.0 - 8.0 09/26/2025 12:12 PM [facility] Specific [place], UA 1.024 1.005 - 1.030 09/26/2025 12:12 PM [facility] Glucose, UA Negative Negative 09/26/2025 12:12 PM [facility] Ketones, UA Trace(A) Negative 09/26/2025 12:12 PM [facility] Bilirubin, UA Negative Negative 09/26/2025 12:12 PM EST [facility] Blood, UA Trace(A) Negative 09/26/2025 12:12 PM EST [facility] Protein, UA 30 mg/dL (1+)(A) Negative 09/26/2025 12:12 PM EST [facility] Leuk Esterase, UA Trace(A) Negative 09/26/2025 12:12 PM EST [facility] Nitrite, UA Negative Negative 09/26/2025 12:12 PM EST [facility] Urobilinogen, UA 1.0 E.U./dL 0.2 - 1.0 E.U./dL 09/26/2025 12:12 PM EST [facility] Urine (Straight Cath) Collection / Unknown 09/26/2025 11:34 AM EST 09/26/2025 11:43 AM EST Luciano Thibodeaux MD URINE ORDERABLES Final Resul t [facility]
[address] [place] [address], * ECG 12 Lead Electrolyte Imbalance (09/26/2025 11:15 AM EST) QT Interval 344 ms ECG QTC Interval 469 ms ECG 09/26/2025 11:1 5 AM EST 10/07/2025 10:35 PM EST Narrative ECG - 10/07/2025 10:35 PM EST Test Reason : Electrolyte Imbalance Blood Pressure : */* mmHG Vent. Rate : 112 BPM Atrial Rate : 112 BPM P-R Int : 148 ms QRS Dur : 86 ms QT Int : 344 ms P-R-T Axes : 27 239 40 degrees QTcB Int : 469 ms Sinus tachycardia Inferior infarct (cited on or before 19-Sep-2025) Anterolateral infarct (cited on or before 19-Sep-2025) Abnormal ECG When compared with ECG of 19-Sep-2025 18:43, (Unconfirmed) No significant change was found Confirmed by LUCIANO THIBODEAUX ([id number]) on 10/07/2025 10:35:27 PM Referred By: cynthia jacobo Confirmed By: LUCIANO THIBODEAUX Procedure Note Luciano Thibodeaux MD - 10/07/2025 Test Reason : Electrolyte Imbalance Blood Pressure : */* mmHG Vent. Rate : 112 BPM Atrial Rate : 112 BPM P-R Int : 148 ms QRS Dur : 86 ms QT Int : 344 ms P-R-T Axes : 27 239 40 degrees QTcB Int : 469 ms Sinus tachycardia Inferior infarct (cited on or before 19-Sep-2025) Anterolateral infarct (cited on or before 19-Sep-2025) Abnormal ECG When compared with ECG of 19-Sep-2025 18:43, (Unconfirmed) No significant change was found Confirmed by LUCIANO THIBODEAUX ([id number]) on 10/07/2025 10:35:27 PM Referred By: cynthia [email or web address] Confirmed By: LUCIANO THIBODEAUX us Luciano Thibodeaux MD ECG ORDERABLES Final Result ECG * XR Chest 1 View (09/26/2025 11:04 AM EST) Anatomical Region Laterality Modality Body N/A Radiographic Rima ging 09/26/2025 11:2 7 AM EST Impressions 09/26/2025 11:28 AM EST Impression: No acute cardiopulmonary abnormality Electronically Signed: Shannon Gray MD 09/26/2025 11:28 AM EST Workstation ID: [id number] Narrative 09/26/2025 11:28 AM EST XR CHEST 1 VW Date of Exam: 09/26/2025 10:55 AM EST Indication: ams. Comparison: 09/19/2025 Findings: Cardiomediastinal silhouette is unremarkable. No airspace disease, pneumothorax, nor pleural effusion. No acute osseous abnormality identified. Procedure Note Shannon Gray MD - 09/26/2025 XR CHEST 1 VW Date of Exam: 09/26/2025 10:55 AM EST Indication: ams. Comparison: 09/19/2025 Findings: Cardiomediastinal silhouette is unremarkable. No airspace disease,pneumothorax, nor pleural effusion. No acute osseous abnormalityidentified. IMPRESSION: Impression: No acute cardiopulmonary abnormality Electronically Signed: Shannon Gray MD 09/26/2025 11:28 AM EST Workstation ID: [id number] Luciano Thibodeaux MD IM DIAGNOSTIC IMAGING ORDER DAVID Final Result * Telemetry Scan (09/26/2025 11:02 AM EST) [facility] Onbase ECG ORDERABLES Final Result * (ABNORMAL) Procalcitonin (09/26/2025 10:59 AM EST) Procalcitonin 0.47(H) 0.00 - 0.25 ng/mL 09/26/2025 2:06 PM EST [facility] Blood Venipuncture / Unknown 09/26/2025 10:59 AM EST 09/26/2025 11:03 AM EST [facility] - 09/26/2025 2:06 PM EST As a Marker for Sepsis (Non-Neonates): 1. <0.5 ng/mL represents a low risk of severe sepsis and/or septic shock. 2. >2 ng/mL represents a high risk of severe sepsis and/or septic shock. As a Marker for Lower Respiratory Tract Infections that require antibiotic therapy: PCT on Admission Antibiotic Therapy 6-12 Hrs later >0.5 Strongly Recommended >0.25 - <0.5 Recommended 0.1 - 0.25 Discouraged Remeasure/reassess PCT <0.1 Strongly Discouraged Remeasure/reassess PCT As 28 day mortality risk marker: Change in Procalcitonin Result (>80% or <=80%) if Day 0 (or Day 1) and Day 4 values are available. Refer to http://www.vmsmco-hah-zoujgcjodu.com Change in PCT <=80% A decrease of PCT levels below or equal to 80% defines a positive change in PCT test result representing a higher risk for 28-day all-cause mortality of patients diagnosed with severe sepsis for septic shock. Change in PCT >80% A decrease of PCT levels of more than 80% defines a negative change in PCT result representing a lower risk for 28-day all-cause mortality of patients diagnosed with severe sepsis or septic shock. us Luciano Thibodeaux MD LAB BLOOD ORDERABLES Final R esult Performing Organization Address [facility] Shaw de Phone Number [facility]
[address] [place] [address], * (ABNORMAL) Beta Hydroxybutyrate Quantitative (09/26/2025 10:59 AM EST) Beta-Hydroxybu tyrate Quant 1.330(H) 0.020 - 0.270 mmol/L 09/26/2025 12:50 PM EST [facility] Blood Venipuncture / Unknown 09/26/2025 10:59 AM EST 09/26/2025 11:03 AM EST Narrative [facility] - 09/26/2025 12:50 PM EST In the assessment of possible diabetic ketoacidosis, the test should be interpreted along with other clinical and laboratory findings. A level greater than 1 mmol/L should require further evaluation and levels of more than 3 mmol/L require immediate medical review. Luciano Thibodeaux MD LAB BLOOD ORDERABLES Final R ult Performing Organization Address [facility] de Phone Number [facility]
[address] [place] [address], * (ABNORMAL) Lactic Acid, Plasma (09/26/2025 10:59 AM EST) Pathologist [facility] [place] Lactate 5.9(HH) 0.5 - 2.0 mmol/L 09/26/2025 12:40 PM EST [facility] Comment:Falsely depressed re sults may occur on samples drawn from patients receiving N-Acetylcysteine (NAC) or Metamizole. Blood Venipuncture / Unknown 09/26/2025 10:59 AM EST 09/26/2025 11:03 AM EST Luciano Thibodeaux MD LAB BLOOD ORDERABLES Final R esult [facility]
[address] [place] [address], * (ABNORMAL) T4, Free (09/26/2025 10:59 AM EST) Free T4 0.78(L) 0.92 - 1.68 ng/dL 09/26/2025 12:31 PM EST [facility] Blood Venipuncture / Unknown 09/26/2025 10:59 AM EST 09/26/2025 11:03 AM EST Luciano Thibodeaux MD LAB BLOOD ORDERABLES Final R esult [facility]
[address] [place] [address], * (ABNORMAL) High Sensitivity Troponin T (09/26/2025 10:59 AM EST) Pathologist [facility] [place] HS Troponin T 24(H) <14 ng/L 09/26/2025 11:59 AM EST [facility] Blood Venipuncture / Unknown 09/26/2025 10:59 AM EST 09/26/2025 11:03 AM EST Narrative [facility] - 09/26/2025 11:59 AM EST High Sensitive Troponin T Reference Range: [...] injury due to an underlying chronic condition. Luciano Thibodeaux MD LAB BLOOD ORDERABLES Final R esult Performing Organization Address City/[facility]/ZIP Co de Phone Number [facility]
[address] [place] [address], * Ammonia (09/26/2025 10:59 AM EST) Ammonia 14 11 - 51 umol/L 09/26/2025 11:31 AM EST [facility] Blood Venipuncture / Unknown 09/26/2025 10:59 AM EST 09/26/2025 11:04 AM EST Luciano Thibodeaux MD LAB BLOOD ORDERABLES Final R esult Performing Organization Address [facility] Co de Phone Number [facility]
[address] [place] [address], * (ABNORMAL) Calcium, Ionized (09/26/2025 10:59 AM EST) Ionized Calcium 1.10(L) 1.15 - 1.30 mmol/L 09/26/2025 11:24 AM EST [facility] Blood Venipuncture / Unknown 09/26/2025 10:59 AM EST 09/26/2025 11:03 AM EST Luciano Thibodeaux MD LAB BLOOD ORDERABLES Final R esult Performing Organization Address City/[facility] Co de Phone Number [facility]
[address] [place] [address], * (ABNORMAL) TSH Rfx On Abnormal To Free T4 (09/26/2025 10:59 AM EST) TSH 12.900(H) 0.270 - 4.200 uIU/mL 09/26/2025 11:59 AM EST [facility] Blood Venipuncture / Unknown 09/26/2025 10:59 AM EST 09/26/2025 11:03 AM EST Luciano Thibodeaux MD LAB BLOOD ORDERABLES Final R esult [facility]
[address] [place] [address], * Phosphorus (09/26/2025 10:59 AM EST) Phosphorus 3.3 2.5 - 4.5 mg/dL 09/26/2025 11:59 AM EST [facility] Blood Venipuncture / Unknown 09/26/2025 10:59 AM EST 09/26/2025 11:03 AM EST Luciano Thibodeaux MD LAB BLOOD ORDERABLES Final R esult Performing Organization Address City/[facility]/ZIP Co de Phone Number [facility]
[address] [place] [address], * Magnesium (09/26/2025 10:59 AM EST) Magnesium 1.9 1.6 - 2.4 mg/dL 09/26/2025 11:59 AM EST [facility] Blood Venipuncture / Unknown 09/26/2025 10:59 AM EST 09/26/2025 11:03 AM EST Luciano Thibodeaux MD LAB BLOOD ORDERABLES Final R esult Performing Organization Address City/[facility]/ZIP Co de Phone Number [facility]
[address] [place] [address], * (ABNORMAL) CBC Auto Differential (09/26/2025 10:59 AM EST) WBC 23.86(H) 3.40 - 10.80 10*3/mm3 09/26/2025 11:07 AM [facility] RBC 5.50(H) 3.77 - 5.28 10*6/mm3 09/26/2025 11:07 AM [facility] Hemoglobin 14.2 12.0 - 15.9 g/dL 09/26/2025 11:07 AM [facility] Hematocrit 43.4 34.0 - 46.6 % 09/26/2025 11:07 AM [facility] MCV 78.9(L) 79.0 - 97.0 fL 09/26/2025 11:07 AM [facility] MCH 25.8(L) 26.6 - 33.0 pg 09/26/2025 11:07 AM [facility] MCHC 32.7 31.5 - 35.7 g/dL 09/26/2025 11:07 AM [facility] RDW 15.9(H) 12.3 - 15.4 % 09/26/2025 11:07 AM [facility] RDW-SD 44.3 37.0 - 54.0 fl 09/26/2025 11:07 AM [facility] MPV 8.7 6.0 - 12.0 fL 09/26/2025 11:07 AM [facility] Platelets 374 140 - 450 10*3/mm3 09/26/2025 11:07 AM [facility] Neutrophil % 90.9(H) 42.7 - 76.0 % 09/26/2025 11:07 AM [facility] Lymphocyte % 4.1(L) 19.6 - 45.3 % 09/26/2025 11:07 AM [facility] Monocyte % 3.6(L) 5.0 - 12.0 % 09/26/2025 11:07 AM [facility] Eosinophil % 0.0(L) 0.3 - 6.2 % 09/26/2025 11:07 AM [facility] Basophil % 0.3 0.0 - 1.5 % 09/26/2025 11:07 AM [facility] Immature Grans % 1.1(H) 0.0 - 0.5 % 09/26/2025 11:07 AM [facility] Neutrophils, Absolute 21.71(H) 1.70 - 7.00 10*3/mm3 09/26/2025 11:07 AM [facility] Lymphocytes, Absolute 0.97 0.70 - 3.10 10*3/mm3 09/26/2025 11:07 AM [facility] Monocytes, Absolute 0.85 0.10 - 0.90 10*3/mm3 09/26/2025 11:07 AM [facility] Eosinophils, Absolute 0.00 0.00 - 0.40 10*3/mm3 09/26/2025 11:07 AM [facility] Basophils, Absolute 0.07 0.00 - 0.20 10*3/mm3 09/26/2025 11:07 AM [facility] Immature Grans, Absolute 0.26(H) 0.00 - 0.05 10*3/mm3 09/26/2025 11:07 AM [facility] nRBC 0.1 0.0 - 0.2 /100 WBC 09/26/2025 11:07 AM [facility] Blood Venipuncture / Unknown 09/26/2025 10:59 AM EST 09/26/2025 11:03 AM EST Luciano Thibodeaux MD LAB BLOOD ORDERABLES Final R esult [facility]
[address] [place] [address], * Light Blue Top (09/26/2025 10:59 AM EST) Extra Tube Hold for add-ons. 09/26/2025 11:15 AM [facility] Comment:Auto resulted Blood Venipuncture / Unknown 09/26/2025 10:59 AM EST 09/26/2025 11:04 AM EST Luciano Thibodeaux MD LAB BLOOD ORDER ONLY Final R esult Performing Organization Address [facility] de Phone Number [facility]
[address] [place] [address], * Colon Top (09/26/2025 10:59 AM EST) Extra Tube Hold for add-ons. 09/26/2025 11:15 AM EST [facility] Comment:Auto resulted. Blood Venipuncture / Unknown 09/26/2025 10:59 AM EST 09/26/2025 11:03 AM EST Luciano Thibodeaux MD LAB BLOOD ORDER ONLY Final R esult Performing Organization Address [facility] de Phone Number [facility]
[address] [place] [address], * Gold Top - SST (09/26/2025 10:59 AM EST) Extra Tube Hold for add-ons. 09/26/2025 11:15 AM EST [facility] Comment:Auto resulted. Blood Venipuncture / Unknown 09/26/2025 10:59 AM EST 09/26/2025 11:03 AM EST Luciano Thibodeaux MD LAB BLOOD ORDER ONLY Final R esult Performing Organization Address City/[facility] de Phone Number [facility]
[address] [place] [address], * Lavender Top (09/26/2025 10:59 AM EST) Extra Tube hold for add-on 09/26/2025 11:15 AM EST [facility] Comment:Auto resulted Blood Venipuncture / Unknown 09/26/2025 10:59 AM EST 09/26/2025 11:03 AM EST Luciano Thibodeaux MD LAB BLOOD ORDER ONLY Final R esult Performing Organization Address City/[facility]/ZIP Co de Phone Number [facility]
[address] [place] [address], * Green Top (Gel) (09/26/2025 10:59 AM EST) Extra Tube Hold for add-ons. 09/26/2025 11:15 AM EST [facility] Comment:Auto resulted. Blood Venipuncture / Unknown 09/26/2025 10:59 AM EST 09/26/2025 11:03 AM EST Luciano Thibodeaux MD LAB BLOOD ORDER ONLY Final R esult Performing Organization Address [facility] de Phone Number [facility]
[address] [place] [address], * Lipase (09/26/2025 10:59 AM EST) Lipase 39 13 - 60 U/L 09/26/2025 11:59 AM EST [facility] Blood Venipuncture / Unknown 09/26/2025 10:59 AM EST 09/26/2025 11:03 AM EST Luciano Thibodeaux MD LAB BLOOD ORDERABLES Final R esult Performing Organization Address [facility] Co de Phone Number [facility]
[address] [place] [address], * (ABNORMAL) Comprehensive Metabolic Panel (09/26/2025 10:59 AM EST) Glucose 207(H) 65 - 99 mg/dL 09/26/2025 11:59 AM EST [facility] BUN 18.3 8.0 - 23.0 mg/dL 09/26/2025 11:59 AM [facility] Creatinine 1.04(H) 0.57 - 1.00 mg/dL 09/26/2025 11:59 AM [facility] Sodium 138 136 - 145 mmol/L 09/26/2025 11:59 AM [facility] Potassium 4.2 3.5 - 5.2 mmol/L 09/26/2025 11:59 AM [facility] Chloride 99 98 - 107 mmol/L 09/26/2025 11:59 AM [facility] CO2 16.3(L) 22.0 - 29.0 mmol/L 09/26/2025 11:59 AM [facility] Calcium 9.3 8.6 - 10.5 mg/dL 09/26/2025 11:59 AM [facility] Total Protein 7.8 6.0 - 8.5 g/dL 09/26/2025 11:59 AM [facility] Albumin 3.8 3.5 - 5.2 g/dL 09/26/2025 11:59 AM [facility] ALT (SGPT) 18 1 - 33 U/L 09/26/2025 11:59 AM [facility] AST (SGOT) 26 1 - 32 U/L 09/26/2025 11:59 AM [facility] Alkaline Phosphatase 110 39 - 117 U/L 09/26/2025 11:59 AM [facility] Total Bilirubin 0.6 0.0 - 1.2 mg/dL 09/26/2025 11:59 AM [facility] Globulin 4.0 gm/dL 09/26/2025 11:59 AM [facility] Comment:Calculated Result A/G Ratio 1.0 g/dL 09/26/2025 11:59 AM [facility] BUN/Creatinine Ratio 17.6 7.0 - 25.0 09/26/2025 11:59 AM [facility] Anion Gap 22.7(H) 5.0 - 15.0 mmol/L 09/26/2025 11:59 AM [facility] eGFR 60.9 >60.0 mL/min/1.7 3 09/26/2025 11:59 AM EST [facility] Blood Venipuncture / Unknown 09/26/2025 10:59 AM EST 09/26/2025 11:03 AM EST Narrative [facility] - 09/26/2025 11:59 AM EST GFR Categories in Chronic Kidney Disease [...] does not include race as a factor Luciano Thibodeaux MD LAB BLOOD ORDERABLES Final R esult [facility]
[address] [place] [address], * Endoscopy, Int (09/26/2025) [facility] INTERFACE NEEDS Final Result * SCANNED PATHOLOGY (09/26/2025) [facility] PATHOLOGY/CYTOLOGY ORDERABLES Final Result * Telemetry Scan (09/26/2025) [facility] ECG ORDERABLES Final Result documented in this encounter Visit Diagnoses Diagnosis Colitis- Primary Other and unspecified noninfectious gastroenteritis and colitis Acute sepsis Acute colitis Lactic acidosis Acidosis Dehydration History of diabetes mellitus Personal history of endocrine, metabolic, and immunity disorders Peptic ulcer Peptic ulcer, unspecified site, unspecified as acute or chronic, without mention of hemorrhage, perforation, or obstruction Type 2 diabetes mellitus without complications Unintentional weight loss Loss of weight Severe sepsis Lactic acidosis Acidosis Severe protein-calorie malnutrition Other severe protein-calorie malnutrition documented in this encounter Admitting Diagnoses Diagnosis Colitis Other and unspecified noninfectious gastroenteritis and colitis documented in this encounter Administered Medications Inactive Administered Medications - up to 3 most recent administrations Medication Order MAR Action Action Date Dose Rate Site acetaminophen (TYLENOL) 160 MG/5ML oral solution 650 mg 650 mg, Oral, Every 4 Hours PRN, Mild Pain, Starting on Lamar 09/26/25 at 1622, If given for fever, use fever parameter: fever greater than 100.4 F Based on patient request - if ordered for moderate or severe pain, provider allows for administration of a medication prescribed for a lower pain scale. Do not exceed 4 grams of acetaminophen in a 24 hr period. Max dose of 2gm for AST/ALT greater than 120 units/L. If given for pain, use the following pain scale: Mild Pain = Pain Score of 1-3, CPOT 1-2 Moderate Pain = Pain Score of 4-6, CPOT 3-4 Severe Pain = Pain Score of 7-10, CPOT 5-8 acetaminophen (TYLENOL) suppository 650 mg 650 mg, Rectal, Every 4 Hours PRN, Mild Pain, Starting on Lamar 09/26/25 at 1622, If given for fever, use fever parameter: fever greater than 100.4 F Based on patient request - if ordered for moderate or severe pain, provider allows for administration of a medication prescribed for a lower pain scale. Do not exceed 4 grams of acetaminophen in a 24 hr period. Max dose of 2gm for AST/ALT greater than 120 units/L. If given for pain, use the following pain scale: Mild Pain = Pain Score of 1-3, CPOT 1-2 Moderate Pain = Pain Score of 4-6, CPOT 3-4 Severe Pain = Pain Score of 7-10, CPOT 5-8 acetaminophen (TYLENOL) tablet 650 mg 650 mg, Oral, Every 4 Hours PRN, Mild Pain, Starting on Lamar 09/26/25 at 1622, If given for fever, use fever parameter: fever greater than 100.4 F Based on patient request - if ordered for moderate or severe pain, provider allows for administration of a medication prescribed for a lower pain scale. Do not exceed 4 grams of acetaminophen in a 24 hr period. Max dose of 2gm for AST/ALT greater than 120 units/L. If given for pain, use the following pain scale: Mild Pain = Pain Score of 1-3, CPOT 1-2 Moderate Pain = Pain Score of 4-6, CPOT 3-4 Severe Pain = Pain Score of 7-10, CPOT 5-8 Given 10/01/2025 9:01 AM EST 650 mg Given 09/27/2025 6:03 PM EST 650 mg aspirin EC tablet 81 mg 81 mg, Oral, Daily, First dose on 09/30/25 at 0900, Do not crush or chew the capsules or tablets. The drug may not work as designed if the capsule or tablet is crushed or chewed. Swallow whole. Do not exceed 4 grams of aspirin in a 24 hr period. If given for pain, use the following pain scale: Mild Pain = Pain Score of 1-3, CPOT 1-2 Moderate Pain = Pain Score of 4-6, CPOT 3-4 Severe Pain = Pain Score of 7-10, CPOT 5-8 Given 10/01/2025 8:42 AM EST 81 mg Given 09/30/2025 8:16 AM EST 81 mg atorvastatin (LIPITOR) tablet 40 mg 40 mg, Oral, Nightly, First dose on Lamar 09/26/25 at 2100, Avoid grapefruit juice. Given 09/30/2025 10:10 PM EST 4 0 mg Given 09/29/2025 9:27 PM EST 40 mg Given 09/28/2025 9:26 PM EST 40 mg bisacodyl (DULCOLAX) EC tablet 5 mg 5 mg, Oral, Daily PRN, Constipation, Use if polyethylene glycol is ineffective, Starting on Lamar 09/26/25 at 1622, Use if no bowel movement after 12 hours. Swallow whole. Do not crush, split, or chew tablet. bisacodyl (DULCOLAX) suppository 10 mg 10 mg, Rectal, Daily PRN, Constipation, Use if bisacodyl oral is ineffective, Starting on Lamar 09/26/25 at 1622, Use if no bowel movement after 12 hours. Hold for diarrhea Cariprazine HCl (VRAYLAR) capsule capsule 1.5 mg 1.5 mg, Oral, Daily, First dose on Tue09/27/25 at 0900 Given 10/01/2025 8:42 AM EST 1.5 mg Given 09/30/2025 8:17 AM EST 1.5 mg Given 09/29/2025 8:10 AM EST 1.5 mg castor oil-balsam anselmo (VENELEX) ointment 1 Application 1 Application, Topical, Every 12 Hours Scheduled, First dose on Tue09/27/25 at 1200, Apply to left back deep tissue pressure injury. Apply to left groin abrasion. Applied to left coccyx pressure injury. See wound care orders for instructions. Given 10/01/2025 8:43 AM EST 1 Application Given 09/30/2025 10:11 PM EST 1 Application Given 09/30/2025 8:22 AM EST 1 Application cefepime 2000 mg IVPB in 100 mL NS (MBP) 2,000 mg, Intravenous, Administer over 30 Minutes, Once, On Lamar 09/26/25 at 1337, For 1 dose, Indications: Intra-Abdominal InfectionIndications:Intra-Abdomi nal Infection New Bag 09/26/2025 2:19 PM EST 2,000 mg cefTRIAXone (ROCEPHIN) 2,000 mg in sodium chloride 0.9 % 100 mL MBP 2,000 mg, Intravenous, at 200 mL/hr, Administer over 30 Minutes, Every 24 Hours Scheduled, First dose (after last modification) on Tue09/27/25 at 1000, For 5 days, LR should be paused and flushing of the line with NS is recommended prior to and after completion of ceftriaxone infusion due to incompatibility. Do not co-adminster with calcium-containing solutions. Caution: Look alike/sound alike drug alert, Indications: Intra-Abdominal InfectionIndications:Intra-Abdomi nal Infection New Bag 09/29/2025 8:12 AM EST 2,000 mg 200 mL/hr New Bag 09/28/2025 9:27 AM EST 2,000 mg 200 mL/hr New Bag 09/27/2025 10:09 AM EST 2,000 mg 200 mL/hr dextrose (D50W) (25 g/50 mL) IV injection 25 g 25 g, Intravenous, Every 15 Minutes PRN, Low Blood Sugar, Blood Sugar Less Than 70, Starting on Lamar 09/26/25 at 1545, Blood sugar less than 70; patient has IV access - Unresponsive, NPO or Unable To Safely Swallow dextrose (GLUTOSE) oral gel 15 g 15 g, Oral, Every 15 Minutes PRN, Low Blood Sugar, Blood sugar less than 70, Starting on Lamar 09/26/25 at 1545, BS<70, Patient Alert, Is not NPO, Can safely swallow. enoxaparin sodium (LOVENOX) syringe 40 mg 40 mg, Subcutaneous, Nightly, First dose on Lamar 09/26/25 at 2100, Give subcutaneous in abdomen only. Do not massage site after injection., Indications: VTE ProphylaxisIndications:VTE Prophylaxis Given 09/30/2025 10:10 PM EST 40 mg Right Lower Abdomen Given 09/29/2025 9:27 PM EST 40 mg Ri ght Lower Abdomen Given 09/28/2025 9:26 PM EST 40 mg Ri ght Lower Abdomen famotidine (PEPCID) injection 20 mg 20 mg, Intravenous, Every 12 Hours Scheduled, First dose on Lamar 09/26/25 at 2100, Give IV push over 2 minutes. Given 09/27/2025 8:26 AM EST 20 mg Given 09/26/2025 10:37 PM EST 20 mg famotidine (PEPCID) injection 20 mg 20 mg, Intravenous, Every 12 Hours Scheduled, First dose on [place] 09/29/25 at 2100, Give IV push over 2 minutes. Given 10/01/2025 8:42 AM EST 20 mg Given 09/30/2025 10:10 PM EST 20 mg Given 09/30/2025 8:17 AM EST 20 mg folic acid 1 mg in sodium chloride 0.9 % 50 mL IVPB 1 mg, Intravenous, at 100 mL/hr, Administer over 30 Minutes, Once, On Lamar 09/26/25 at 1103, For 1 dose, Protect from light. New Bag 09/26/2025 11:08 AM EST 1 mg 100 mL/hr glucagon (GLUCAGEN) injection 1 mg 1 mg, Intramuscular, Every 15 Minutes PRN, Low Blood Sugar, Blood Glucose Less Than 70, Starting on Lamar 09/26/25 at 1545, Blood Glucose Less Than 70 - Patient Without IV Access - Unresponsive, NPO or Unable To Safely Swallow Reconstitute powder for injection by adding 1 mL of bioinformatics engineer-supplied sterile diluent or sterile water for injection to a vial containing 1 mg of the drug, to provide solutions containing 1 mg/mL. Shake vial gently to dissolve. influenza virus vacc split PF FLUZONE 0.5 mL 0.5 mL, Intramuscular, During Hospitalization, Immunization, Starting on Lamar 09/26/25 at 1728, For 1 dose, Do Not Administer if Temperature Greater Than 102F & Notify Pharmacy Pneumococcal & Influenza Vaccines May Be Given At The Same Time in SEPARATE Injections. ([facility]) Insulin Lispro (humaLOG) injection 2-7 Units 2-7 Units, Subcutaneous, 4 Times Daily Before Meals & Nightly, First dose on Lamar 09/26/25 at 1730, Correction Insulin - Low Dose - Total Insulin Dose Less Than 40 units/day (Lean, Elderly or Renal Patients) Blood Glucose 150-199 mg/dL - 2 units Blood Glucose 200-249 mg/dL - 3 units Blood Glucose 250-299 mg/dL - 4 units Blood Glucose 300-349 mg/dL - 5 units Blood Glucose 350-400 mg/dL - 6 units Blood Glucose Greater Than 400 mg/dL - 7 units & Call Provider ([facility]) Caution: Look alike/sound alike drug alert([facility]) Given 09/29/2025 4:39 PM EST 2 Units Left Arm Given 09/29/2025 12:13 PM EST 2 Units L eft Arm iopamidol (ISOVUE-300) 61 % injection 85 mL 85 mL, Intravenous, Once in Imaging, On Lamar 09/26/25 at 1301, For 1 dose Given 09/26/2025 12:45 PM EST 85 mL lactated ringers bolus 1,000 mL 1,000 mL, Intravenous, at 2,000 mL/hr, Administer over 0.5 Hours, Once, On Tue09/30/25 at 0815, For 1 dose New Bag 09/30/2025 8:18 AM EST 1,000 mL 999 mL/hr levothyroxine (SYNTHROID, LEVOTHROID) tablet 100 mcg 100 mcg, Oral, Every Parlor Maid, First dose (after last modification) on Tue10/01/25 at 0600, Take on empty stomach. Given 10/01/2025 5:21 AM EST 100 mcg levothyroxine (SYNTHROID, LEVOTHROID) tablet 88 mcg 88 mcg, Oral, Every Parlor Maid, First dose on Tue09/27/25 at 0600, Take on empty stomach. Given 09/30/2025 5:35 AM EST 88 mcg Given 09/29/2025 5:41 AM EST 88 mcg Given 09/28/2025 5:57 AM EST 88 mcg magnesium sulfate 2g/50 mL (PREMIX) infusion 2 g, Intravenous, Administer over 2 Hours, Every 2 Hours, First dose on 09/28/25 at 1245, For 3 doses New Bag 09/28/2025 7:04 PM EST 2 g New Bag 09/28/2025 5:41 PM EST 2 g New Bag 09/28/2025 1:56 PM EST 2 g metroNIDAZOLE (FLAGYL) IVPB 500 mg 500 mg, Intravenous, at 200 mL/hr, Administer over 30 Minutes, Once, On Lamar 09/26/25 at 1337, For 1 dose, Caution: Look alike/sound alike drug alert. Do not refrigerate., Indications: Intra-Abdominal InfectionIndications:Intra-Abdomina l Infection New 09/26/2025 2:55 PM EST 500 mg 200 mL/hr metroNIDAZOLE (FLAGYL) IVPB 500 mg 500 mg, Intravenous, at 200 mL/hr, Administer over 30 Minutes, Every 8 Hours, First dose on Lamar 09/26/25 at 2300, For 5 days, Caution: Look alike/sound alike drug alert. Do not refrigerate., Indications: Intra-Abdominal InfectionIndications:Intra-Abdomina l Infection New 09/30/2025 5:36 AM EST 500 mg 200 mL/hr New 09/29/2025 11:05 PM EST 500 mg 200 mL/hr New 09/29/2025 3:35 PM EST 500 mg 200 mL/hr miconazole (MICOTIN) 2 % powder 1 Application 1 Application, Topical, Every 12 Hours Scheduled, First dose on Tue09/27/25 at 2100, Apply to under R breast Given 10/01/2025 8:43 AM EST 1 Applicati on Given 09/30/2025 10:10 PM EST 1 Application Given 09/30/2025 8:18 AM EST 1 Application midodrine (PROAMATINE) tablet 10 mg 10 mg, Oral, 3 Times Daily Before Meals, First dose on Tue09/27/25 at 0845 Given 09/30/2025 8:16 AM EST 10 mg Given 09/29/2025 3:35 PM EST 10 mg Given 09/29/2025 12:13 PM EST 10 mg nitroglycerin (NITROSTAT) SL tablet 0.4 mg 0.4 mg, Sublingual, Every 5 Minutes PRN, Chest Pain, Starting on Lamar 09/26/25 at 1441, If Pain Unrelieved After 3 Doses Notify MD May administer up to 3 doses per episode. Hold if SBP less than 100. ondansetron (ZOFRAN) injection 4 mg 4 mg, Intravenous, Every 6 Hours PRN, Nausea, Vomiting, Starting on Lamar 09/26/25 at 1622, If BOTH ondansetron (ZOFRAN) and promethazine (PHENERGAN) are ordered use ondansetron first and THEN promethazine IF ondansetron is ineffective. Given 09/28/2025 7:04 PM EST 4 mg ondansetron ODT (ZOFRAN-ODT) disintegrating tablet 4 mg 4 mg, Oral, Every 6 Hours PRN, Nausea, Vomiting, Starting on Lamar 09/26/25 at 1622, If BOTH ondansetron (ZOFRAN) and promethazine (PHENERGAN) are ordered use ondansetron first and THEN promethazine IF ondansetron is ineffective. Place on tongue and allow to dissolve. pantoprazole (PROTONIX) injection 40 mg 40 mg, Intravenous, 2 Times Daily Before Meals, First dose on Tue09/27/25 at 1730, Dilute with 10 mL of 0.9% NaCl and give IV push over 2 minutes., Indications: Gastroesophageal Reflux DiseaseIndications:Gastroesophageal Reflux Disease Given 09/29/2025 8:11 AM EST 40 mg Given 09/28/2025 5:41 PM EST 40 mg Given 09/28/2025 7:52 AM EST 40 mg polyethylene glycol (MIRALAX) packet 17 g 17 g, Oral, Daily PRN, Constipation, Use if senna-docusate is ineffective, Starting on Lamar 09/26/25 at 1622, Use if no bowel movement after 12 hours. Mix in 6-8 ounces of water. Use 4-8 ounces of water, tea, or juice for each 17 gram dose. potassium chloride (KLOR-CON M20) CR tablet 40 mEq 40 mEq, Oral, Every 4 Hours, First dose on Tue09/27/25 at 1100, For 2 doses, Do not crush or chew the capsules or tablets. The drug may not work as designed if the capsule or tablet is crushed or chewed. Swallow whole. Take with food. Given 09/27/2025 3:59 PM EST 40 mEq Given 09/27/2025 11:52 AM EST 40 mEq potassium chloride (KLOR-CON M20) CR tablet 40 mEq 40 mEq, Oral, Every 4 Hours, First dose on Tue09/28/25 at 1245, For 2 doses, Do not crush or chew the capsules or tablets. The drug may not work as designed if the capsule or tablet is crushed or chewed. Swallow whole. Take with food. Given 09/28/2025 5:41 PM EST 40 mEq Given 09/28/2025 1:56 PM EST 40 mEq potassium chloride (KLOR-CON M20) CR tablet 40 mEq 40 mEq, Oral, Every 4 Hours, First dose on Tue10/01/25 at 1600, For 2 doses, Do not crush or chew the capsules or tablets. The drug may not work as designed if the capsule or tablet is crushed or chewed. Swallow whole. Take with food. Given 10/01/2025 3:10 PM EST 40 mEq potassium phosphate 15 mmol in 0.9% normal saline 250 mL IVPB 15 mmol, Intravenous, Administer over 3 Hours, Every 3 Hours, First dose on Tue09/28/25 at 1245, For 2 doses New Bag 09/28/2025 7:04 PM EST 15 mmol New Bag 09/28/2025 2:02 PM EST 15 mmol sennosides-docusate (PERICOLACE) 8.6-50 MG per tablet 2 tablet 2 tablet, Oral, 2 Times Daily PRN, Constipation, Starting on Lamar 09/26/25 at 1622, Start bowel management regimen if patient has not had a bowel movement after 12 hours. sodium bicarbonate tablet 650 mg 650 mg, Oral, 2 Times Daily, First dose on Tue09/27/25 at 0900 Given 09/30/2025 8:16 AM EST 650 mg Given 09/29/2025 9:27 PM EST 650 mg Given 09/29/2025 8:10 AM EST 650 mg Sodium Chloride (PF) 0.9 % 10 mL 10 mL, Intravenous, As Needed, Line Care, Starting on Lamar 09/26/25 at 1036 sodium chloride 0.9 % bolus 1,000 mL 1,000 mL, Intravenous, at 2,000 mL/hr, Administer over 0.5 Hours, Once, On Tue09/26/25 at 1259, For 1 dose New Bag 09/26/2025 1:01 PM EST 1,000 mL 2000 mL/hr sodium chloride 0.9 % bolus 1,000 mL 1,000 mL, Intravenous, at 2,000 mL/hr, Administer over 0.5 Hours, Once, On Lamar 09/26/25 at 1259, For 1 dose New Bag 09/26/2025 1:01 PM EST 1,000 mL 2000 mL/hr sodium chloride 0.9 % bolus 1,000 mL 1,000 mL, Intravenous, at 2,000 mL/hr, Administer over 0.5 Hours, Once, On Tue09/27/25 at 0900, For 1 dose New Bag 09/27/2025 8:26 AM EST 1,000 mL 2000 mL/hr sodium chloride 0.9 % flush 10 mL 10 mL, Intravenous, Every 12 Hours Scheduled, First dose on Tue09/26/25 at 2100 Given 10/01/2025 8:44 AM EST 10 mL Given 09/30/2025 10:10 PM EST 10 mL Given 09/30/2025 8:22 AM EST 10 mL sodium chloride 0.9 % infusion 1,000 mL 1,000 mL, Intravenous, Once, On Tue09/26/25 at 1103, For 1 dose Currently Infusing 09/26/2025 11:08 AM EST New Bag 09/26/2025 11:07 AM EST 1,000 mL sodium chloride 0.9 % infusion 125 mL/hr, Intravenous, Continuous, Starting on Tue09/26/25 at 1715, For 1 day New Bag 09/27/2025 2:24 AM EST 125 mL/hr 125 mL/hr New Bag 09/26/2025 6:00 PM EST 125 mL/hr 125 mL/hr sodium chloride 0.9 % infusion 125 mL/hr, Intravenous, Continuous, Starting on Tue09/27/25 at 1945, For 1 day New Bag 09/27/2025 6:58 PM EST 125 mL/hr 125 mL/hr thiamine (B-1) injection 200 mg 200 mg, Intravenous, Once, On Lamar 09/26/25 at 1103, For 1 dose, Doses of up to 250mg, give over 1-2 minutes (IV push). Doses 250mg and above, give over 30 minutes. Given 09/26/2025 11:11 AM EST 200 mg vancomycin (VANCOCIN) capsule 125 mg 125 mg, Oral, Every 6 Hours Scheduled, First dose on Lamar 09/26/25 at 1800, For 10 days, Do not crush or chew the capsules or tablets. Contact Pharmacy if needed., Indications: Clostridioides Difficile InfectionIndications:Clostridioid es Difficile Infection Given 10/01/2025 12:45 PM EST 125 mg Given 10/01/2025 5:21 AM EST 125 mg Given 10/01/2025 12:13 AM EST 125 mg documented in this encounter Active and Recently Administered Medications Times are shown in EST. Scheduled Medication Order 09/29/2025 09/30/2025 10/01/2025 aspirin EC tablet 81 mg 81 mg, Oral, Daily, First dose on 09/30/25 at 0900, Do not crush or chew the capsules or tablets. The drug may not work as designed if the capsule or tablet is crushed or chewed. Swallow whole. Do not exceed 4 grams of aspirin in a 24 hr period. If given for pain, use the following pain scale: Mild Pain = Pain Score of 1-3, CPOT 1-2 Moderate Pain = Pain Score of 4-6, CPOT 3-4 Severe Pain = Pain Score of 7-10, CPOT 5-8 0816 (Given - Provider: Malissa Chung RN) 0842 (Given - Provider: Amarilis North RN) atorvastatin (LIPITOR) tablet 40 mg 40 mg, Oral, Nightly, First dose on [place] 09/26/25 at 2100, Avoid grapefruit juice. 2126 (Given - Provider: Ligia Sandoval RN) 2209 (Given - Provider: Ligia Sandoval RN) Cariprazine HCl (VRAYLAR) capsule capsule 1.5 mg 1.5 mg, Oral, Daily, First dose on Tue09/27/25 at 0900 0810 (Given - Provider: Malissa Chung RN) 0817 (Given - Provider: Malissa Chung RN) 0842 (Given - Provider: Amarilis North, RN) castor oil-balsam anselmo (VENELEX) ointment 1 Application 1 Application, Topical, Every 12 Hours Scheduled, First dose on Tue09/27/25 at 1200, Apply to left back deep tissue pressure injury. Apply to left groin abrasion. Applied to left coccyx pressure injury. See wound care orders for instructions. 811 (Given - Provider: Malissa Chung RN)2128 (Not Given - Provider: Ligia Sandoval RN - Reason: Hold For Procedure - Comment: dressing change was done earlier today) 821 (Given - Provider: Malissa Chung RN)2210 (Given - Provider: Ligia Sandoval RN) 0843 (Given - Provider: Amarilis North, RN) cefTRIAXone (ROCEPHIN) 2,000 mg in sodium chloride 0.9 % 100 mL MBP (CANCELED) 2,000 mg, Intravenous, at 200 mL/hr, Administer over 30 Minutes, Every 24 Hours Scheduled, First dose (after last modification) on Tue09/27/25 at 1000, For 5 days, LR should be paused and flushing of the line with NS is recommended prior to and after completion of ceftriaxone infusion due to incompatibility. Do not co-adminster with calcium-containing solutions. Caution: Look alike/sound alike drug alert, Indications: Intra-Abdominal Infection 811 (New Bag - Provider: Malissa Chung RN) enoxaparin sodium (LOVENOX) syringe 40 mg 40 mg, Subcutaneous, Nightly, First dose on Tue09/26/25 at 2100, Give subcutaneous in abdomen only. Do not massage site after injection., Indications: VTE Prophylaxis 2126 (Given - Provider: Ligia Sandoval RN) 2209 (Given - Provider: Ligia Sandoval, RN) famotidine (PEPCID) injection 20 mg 20 mg, Intravenous, Every 12 Hours Scheduled, First dose on Tue09/29/25 at 2100, Give IV push over 2 minutes. 2126 (Given - Provider: Ligia Sandoval RN) 816 (Given - Provider: Malissa Chung RN)2209 (Given - Provider: Ligia Sandoval RN) 0842 (Given - Provider: Amarilis North, RN) Insulin Lispro (humaLOG) injection 2-7 Units (CANCELED) 2-7 Units, Subcutaneous, 4 Times Daily Before Meals & Nightly, First dose on Tue09/26/25 at 1730, Correction Insulin - Low Dose - Total Insulin Dose Less Than 40 units/day (Lean, Elderly or Renal Patients) Blood Glucose 150-199 mg/dL - 2 units Blood Glucose 200-249 mg/dL - 3 units Blood Glucose 250-299 mg/dL - 4 units Blood Glucose 300-349 mg/dL - 5 units Blood Glucose 350-400 mg/dL - 6 units Blood Glucose Greater Than 400 mg/dL - 7 units & Call Provider ([facility]) Caution: Look alike/sound alike drug alert([facility]) 0801 (Not Given - Provider: Malissa Chung RN - Reason: Order parameters not met)1213 (Given - Provider: Malissa Chung RN)1639 (Given - Provider: Malissa Chung RN)2128 (Not Given - Provider: Ligia Sandoval RN - Reason: Order parameters not met) 0711 (Not Given - Provider: Malissa Chung RN - Reason: Order parameters not met) lactated ringers bolus 1,000 mL (COMPLETED) 1,000 mL, Intravenous, at 2,000 mL/hr, Administer over 0.5 Hours, Once, On Tue09/30/25 at 0815, For 1 dose 0818 (New Bag - Provider: Malissa Chung RN - Comment: 999 is fastest rate possible on these pumps) levothyroxine (SYNTHROID, LEVOTHROID) tablet 100 mcg 100 mcg, Oral, Every Parlor Maid, First dose (after last modification) on Tue10/01/25 at 0600, Take on empty stomach. 0521 (Given - Provider: Ligia Sandoval, CRYSTAL) levothyroxine (SYNTHROID, LEVOTHROID) tablet 88 mcg (CANCELED) 88 mcg, Oral, Every Parlor Maid, First dose on Tue09/27/25 at 0600, Take on empty stomach. 0541 (Given - Provider: Sheri Jones RN) 0535 (Given - Provider: Ligia Sandoval, CRYSTAL) metroNIDAZOLE (FLAGYL) IVPB 500 mg (CANCELED) 500 mg, Intravenous, at 200 mL/hr, Administer over 30 Minutes, Every 8 Hours, First dose on Tue09/26/25 at 2300, For 5 days, Caution: Look alike/sound alike drug alert. Do not refrigerate., Indications: Intra-Abdominal Infection 0007 (New Bag - Provider: Sheri Jones RN)0812 (New Bag - Provider: Malissa Chung RN)1535 (New Bag - Provider: Malissa Chung RN)2305 (New Bag - Provider: Ligia Sandoval, RN) 0536 (New Bag - Provider: Ligia Sandoval RN) miconazole (MICOTIN) 2 % powder 1 Application 1 Application, Topical, Every 12 Hours Scheduled, First dose on Tue09/27/25 at 2100, Apply to under R breast 0812 (Given - Provider: Malissa Chung RN)2128 (Given - Provider: Ligia Sandoval RN) 0818 (Given - Provider: Malissa Chung RN)2210 (Given - Provider: Ligia Sandoval RN) 0843 (Given - Provider: Amarilis North RN) midodrine (PROAMATINE) tablet 10 mg (CANCELED) 10 mg, Oral, 3 Times Daily Before Meals, First dose on Tue09/27/25 at 0845 0810 (Given - Provider: Malissa Chung RN)1213 (Given - Provider: Malissa Chung RN)1535 (Given - Provider: Malissa Chung RN)1730 (Canceled Entry - Provider: Malissa Chung RN) 0816 (Given - Provider: Malissa Chung RN) pantoprazole (PROTONIX) injection 40 mg (CANCELED) 40 mg, Intravenous, 2 Times Daily Before Meals, First dose on Tue09/27/25 at 1730, Dilute with 10 mL of 0.9% NaCl and give IV push over 2 minutes., Indications: Gastroesophageal Reflux Disease 0811 (Given - Provider: Malissa Chung RN) potassium chloride (KLOR-CON M20) CR tablet 40 mEq 40 mEq, Oral, Every 4 Hours, First dose on Tue10/01/25 at 1600, For 2 doses, Do not crush or chew the capsules or tablets. The drug may not work as designed if the capsule or tablet is crushed or chewed. Swallow whole. Take with food. 1510 (Given - Provider: Shirin Larios RN) sodium bicarbonate tablet 650 mg (CANCELED) 650 mg, Oral, 2 Times Daily, First dose on Tue09/27/25 at 0900 0810 (Given - Provider: Malissa Chung RN)2127 (Given - Provider: Ligia Sandoval RN) 0816 (Given - Provider: Malissa Chung RN) sodium chloride 0.9 % flush 10 mL 10 mL, Intravenous, Every 12 Hours Scheduled, First dose on [place]ar 09/26/25 at 2100 0812 (Given - Provider: Malissa Chung RN)2128 (Given - Provider: Ligia Sandoval RN) 0822 (Given - Provider: Malissa Chung RN)2210 (Given - Provider: Ligia Sandoval RN) 0844 (Given - Provider: Amarilis North RN) vancomycin (VANCOCIN) capsule 125 mg 125 mg, Oral, Every 6 Hours Scheduled, First dose on Lamar 09/26/25 at 1800, For 10 days, Do not crush or chew the capsules or tablets. Contact Pharmacy if needed., Indications: Clostridioides Difficile Infection 0007 (Given - Provider: Sheri Jones RN)0541 (Given - Provider: Sheri Jones RN)1213 (Given - Provider: Malissa Chung RN)1825 (Given - Provider: Malissa Chung RN)2317 (Given - Provider: Ligia Sandoval RN) 0535 (Given - Provider: Ligia Sandoval RN)1232 (Given - Provider: Mlaissa Chung RN)1800 (Given - Provider: Malissa Chung RN) 0013 (Given - Provider: Ligia Sandoval RN)0521 (Given - Provider: Ligia Sandoval RN)1245 (Given - Provider: Shirin Larios RN) PRN Medication Order 09/29/2025 09/30/2025 10/01/2025 acetaminophen (TYLENOL) 160 MG/5ML oral solution 650 mg(Linked Group 1) 650 mg, Oral, Every 4 Hours PRN, Mild Pain, Starting on Lamar 09/26/25 at 1622, If given for fever, use fever parameter: fever greater than 100.4 F Based on patient request - if ordered for moderate or severe pain, provider allows for administration of a medication prescribed for a lower pain scale. Do not exceed 4 grams of acetaminophen in a 24 hr period. Max dose of 2gm for AST/ALT greater than 120 units/L. If given for pain, use the following pain scale: Mild Pain = Pain Score of 1-3, CPOT 1-2 Moderate Pain = Pain Score of 4-6, CPOT 3-4 Severe Pain = Pain Score of 7-10, CPOT 5-8 0901 (Not Given: See Alt - Provider: Amarilis North RN) acetaminophen (TYLENOL) suppository 650 mg(Linked Group 1) 650 mg, Rectal, Every 4 Hours PRN, Mild Pain, Starting on Lamar 09/26/25 at 1622, If given for fever, use fever parameter: fever greater than 100.4 F Based on patient request - if ordered for moderate or severe pain, provider allows for administration of a medication prescribed for a lower pain scale. Do not exceed 4 grams of acetaminophen in a 24 hr period. Max dose of 2gm for AST/ALT greater than 120 units/L. If given for pain, use the following pain scale: Mild Pain = Pain Score of 1-3, CPOT 1-2 Moderate Pain = Pain Score of 4-6, CPOT 3-4 Severe Pain = Pain Score of 7-10, CPOT 5-8 0901 (Not Given: See Alt - Provider: Amarilis North RN) acetaminophen (TYLENOL) tablet 650 mg(Linked Group 1) 650 mg, Oral, Every 4 Hours PRN, Mild Pain, Starting on Lamar 09/26/25 at 1622, If given for fever, use fever parameter: fever greater than 100.4 F Based on patient request - if ordered for moderate or severe pain, provider allows for administration of a medication prescribed for a lower pain scale. Do not exceed 4 grams of acetaminophen in a 24 hr period. Max dose of 2gm for AST/ALT greater than 120 units/L. If given for pain, use the following pain scale: Mild Pain = Pain Score of 1-3, CPOT 1-2 Moderate Pain = Pain Score of 4-6, CPOT 3-4 Severe Pain = Pain Score of 7-10, CPOT 5-8 0901 (Given - Provid er: Amarilis North RN) bisacodyl (DULCOLAX) EC tablet 5 mg(Linked Group 2) 5 mg, Oral, Daily PRN, Constipation, Use if polyethylene glycol is ineffective, Starting on Lamar 09/26/25 at 1622, Use if no bowel movement after 12 hours. Swallow whole. Do not crush, split, or chew tablet. bisacodyl (DULCOLAX) suppository 10 mg(Linked Group 2) 10 mg, Rectal, Daily PRN, Constipation, Use if bisacodyl oral is ineffective, Starting on Lamar 09/26/25 at 1622, Use if no bowel movement after 12 hours. Hold for diarrhea Calcium Replacement - Follow Nurse / BPA Driven Protocol Open Order & Select [facility] Electrolyte Replacement Protocol Algorithm to View Details dextrose (D50W) (25 g/50 mL) IV injection 25 g 25 g, Intravenous, Every 15 Minutes PRN, Low Blood Sugar, Blood Sugar Less Than 70, Starting on Lamar 09/26/25 at 1545, Blood sugar less than 70; patient has IV access - Unresponsive, NPO or Unable To Safely Swallow dextrose (GLUTOSE) oral gel 15 g 15 g, Oral, Every 15 Minutes PRN, Low Blood Sugar, Blood sugar less than 70, Starting on Lamar 09/26/25 at 1545, BS<70, Patient Alert, Is not NPO, Can safely swallow. glucagon (GLUCAGEN) injection 1 mg 1 mg, Intramuscular, Every 15 Minutes PRN, Low Blood Sugar, Blood Glucose Less Than 70, Starting on Lamar 09/26/25 at 1545, Blood Glucose Less Than 70 - Patient Without IV Access - Unresponsive, NPO or Unable To Safely Swallow Reconstitute powder for injection by adding 1 mL of bioinformatics engineer-supplied sterile diluent or sterile water for injection to a vial containing 1 mg of the drug, to provide solutions containing 1 mg/mL. Shake vial gently to dissolve. influenza virus vacc split PF FLUZONE 0.5 mL 0.5 mL, Intramuscular, During Hospitalization, Immunization, Starting on Lamar 09/26/25 at 1728, For 1 dose, Do Not Administer if Temperature Greater Than 102F & Notify Pharmacy Pneumococcal & Influenza Vaccines May Be Given At The Same Time in SEPARATE Injections. ([facility]) Magnesium Standard Dose Replacement - Follow Nurse / BPA Driven Protocol Open Order & Select [facility] Electrolyte Replacement Protocol Algorithm to View Details nitroglycerin (NITROSTAT) SL tablet 0.4 mg 0.4 mg, Sublingual, Every 5 Minutes PRN, Chest Pain, Starting on Lamar 09/26/25 at 1441, If Pain Unrelieved After 3 Doses Notify MD May administer up to 3 doses per episode. Hold if SBP less than 100. ondansetron (ZOFRAN) injection 4 mg(Linked Group 3) 4 mg, Intravenous, Every 6 Hours PRN, Nausea, Vomiting, Starting on Lamar 09/26/25 at 1622, If BOTH ondansetron (ZOFRAN) and promethazine (PHENERGAN) are ordered use ondansetron first and THEN promethazine IF ondansetron is ineffective. ondansetron ODT (ZOFRAN-ODT) disintegrating tablet 4 mg(Linked Group 3) 4 mg, Oral, Every 6 Hours PRN, Nausea, Vomiting, Starting on Lamar 09/26/25 at 1622, If BOTH ondansetron (ZOFRAN) and promethazine (PHENERGAN) are ordered use ondansetron first and THEN promethazine IF ondansetron is ineffective. Place on tongue and allow to dissolve. Pharmacy Consult Continuous PRN, Starting on Tue09/26/25 at 1622, Until Tue10/01/25 at 1750, Consult, Consult for: Change PPI Order to famotidine (Unless Documented Current or History of GI Bleed), Discontinue Scheduled Antiperistaltic Agents & Stool Softeners / Laxatives Phosphorus Replacement - Follow Nurse / BPA Driven Protocol Open Order & Select S Electrolyte Replacement Protocol Algorithm to View Details polyethylene glycol (MIRALAX) packet 17 g(Linked Group 2) 17 g, Oral, Daily PRN, Constipation, Use if senna-docusate is ineffective, Starting on Tue09/26/25 at 1622, Use if no bowel movement after 12 hours. Mix in 6-8 ounces of water. Use 4-8 ounces of water, tea, or juice for each 17 gram dose. Potassium Replacement - Follow Nurse / BPA Driven Protocol Open Order & Select S Electrolyte Replacement Protocol Algorithm to View Details sennosides-docusate (PERICOLACE) 8.6-50 MG per tablet 2 tablet(Linked Group 2) 2 tablet, Oral, 2 Times Daily PRN, Constipation, Starting on Lamar 09/26/25 at 1622, Start bowel management regimen if patient has not had a bowel movement after 12 hours. Sodium Chloride (PF) 0.9 % 10 mL 10 mL, Intravenous, As Needed, Line Care, Starting on Lamar 09/26/25 at 1036 sodium chloride 0.9 % flush 10 mL 10 mL, Intravenous, As Needed, Line Care, Starting on Lamar 09/26/25 at 1622 sodium chloride 0.9 % infusion 40 mL 40 mL, Intravenous, at 100 mL/hr, As Needed, Line Care, Starting on Lamar 09/26/25 at 1622, Following administration of an IV intermittent medication, flush line with 40mL NS at 100mL/hr. Linked Groups Order Group 1: acetaminophen (TYLENOL) tablet 650 mgJump to med 650 mg, Oral, Every 4 Hours PRN, Mild Pain, Starting on Lamar 09/26/25 at 1622, If given for fever, use fever parameter: fever greater than 100.4 F Based on patient request - if ordered for moderate or severe pain, provider allows for administration of a medication prescribed for a lower pain scale. Do not exceed 4 grams of acetaminophen in a 24 hr period. Max dose of 2gm for AST/ALT greater than 120 units/L. If given for pain, use the following pain scale: Mild Pain = Pain Score of 1-3, CPOT 1-2 Moderate Pain = Pain Score of 4-6, CPOT 3-4 Severe Pain = Pain Score of 7-10, CPOT 5-8 Or acetaminophen (TYLENOL) 160 MG/5ML oral solution 650 mgJump to med 650 mg, Oral, Every 4 Hours PRN, Mild Pain, Starting on Lamar 09/26/25 at 1622, If given for fever, use fever parameter: fever greater than 100.4 F Based on patient request - if ordered for moderate or severe pain, provider allows for administration of a medication prescribed for a lower pain scale. Do not exceed 4 grams of acetaminophen in a 24 hr period. Max dose of 2gm for AST/ALT greater than 120 units/L. If given for pain, use the following pain scale: Mild Pain = Pain Score of 1-3, CPOT 1-2 Moderate Pain = Pain Score of 4-6, CPOT 3-4 Severe Pain = Pain Score of 7-10, CPOT 5-8 Or acetaminophen (TYLENOL) suppository 650 mgJump to med 650 mg, Rectal, Every 4 Hours PRN, Mild Pain, Starting on Lamar 09/26/25 at 1622, If given for fever, use fever parameter: fever greater than 100.4 F Based on patient request - if ordered for moderate or severe pain, provider allows for administration of a medication prescribed for a lower pain scale. Do not exceed 4 grams of acetaminophen in a 24 hr period. Max dose of 2gm for AST/ALT greater than 120 units/L. If given for pain, use the following pain scale: Mild Pain = Pain Score of 1-3, CPOT 1-2 Moderate Pain = Pain Score of 4-6, CPOT 3-4 Severe Pain = Pain Score of 7-10, CPOT 5-8 Group 2: sennosides-docusate (PERICOLACE) 8.6-50 MG per tablet 2 tabletJump to med 2 tablet, Oral, 2 Times Daily PRN, Constipation, Starting on [facility] 09/26/25 at 1622, Start bowel management regimen if patient has not had a bowel movement after 12 hours. And polyethylene glycol (MIRALAX) packet 17 gJump to med 17 g, Oral, Daily PRN, Constipation, Use if senna-docusate is ineffective, Starting on [facility] 09/26/25 at 1622, Use if no bowel movement after 12 hours. Mix in 6-8 ounces of water. Use 4-8 ounces of water, tea, or juice for each 17 gram dose. And bisacodyl (DULCOLAX) EC tablet 5 mgJump to med 5 mg, Oral, Daily PRN, Constipation, Use if polyethylene glycol is ineffective, Starting on [facility] 09/26/25 at 1622, Use if no bowel movement after 12 hours. Swallow whole. Do not crush, split, or chew tablet. And bisacodyl (DULCOLAX) suppository 10 mgJump to med 10 mg, Rectal, Daily PRN, Constipation, Use if bisacodyl oral is ineffective, Starting on [facility] 09/26/25 at 1622, Use if no bowel movement after 12 hours. Hold for diarrhea Group 3: ondansetron ODT (ZOFRAN-ODT) disintegrating tablet 4 mgJump to med 4 mg, Oral, Every 6 Hours PRN, Nausea, Vomiting, Starting on [facility] 09/26/25 at 1622, If BOTH ondansetron (ZOFRAN) and promethazine (PHENERGAN) are ordered use ondansetron first and THEN promethazine IF ondansetron is ineffective. Place on tongue and allow to dissolve. Or ondansetron (ZOFRAN) injection 4 mgJump to med 4 mg, Intravenous, Every 6 Hours PRN, Nausea, Vomiting, Starting on [place] 09/26/25 at 1622, If BOTH ondansetron (ZOFRAN) and promethazine (PHENERGAN) are ordered use ondansetron first and THEN promethazine IF ondansetron is ineffective. documented in this encounter Additional Health Concerns Infection Onset Date Last Indicated Resolved Time C.difficile (rule out) 09/26/2025 09/26/202509/27 2:30 PM EST C.difficile 09/27/2025 09/27/2025 documented as of this encounter Care Teams Retail Sales Vitamin Consultant Relationship Specialty Start Date End Date Santosh Phipps MD [facility] [address] [place] [id number] PCP - General Internal Medicine 01/25/17 10/01/25 documented as of this encounter
--- NOTE | 2025-10-23 21:16 | [facility].EDGENADL ---
Discharge Plan Disposition Patient Disposition: Xfer Short-Term Hosp Condition: Fair Prescriptions Prescriptions: No Action trazodone 100 mg Tablet 100 mg PO HS aspirin 81 mg Tablet 81 mg PO DAILY levothyroxine 88 mcg tablet 88 mcg PO DAILY lisinopril 2.5 mg tablet 2.5 mg PO DAILY omeprazole 40 mg capsule,delayed release(DR/EC) 40 mg PO BID 30 Days Qty: 60 0RF cefdinir 300 mg capsule 300 mg PO BID 3 Days Qty: 6 0RF alendronate 70 mg tablet 70 mg PO WEEKLY tramadol 50 mg tablet 50 mg PO TIDP PRN (Reason: Moderate Pain (Scale Score 5-6)) baclofen 10 mg tablet 10 mg PO TID metformin 500 mg tablet extended release 24 hr 500 mg PO DAILY atorvastatin 10 mg tablet 10 mg PO HS Ubrelvy 100 mg tablet 100 mg PO DAILYP PRN (Reason: migraine headache) Referrals Follow up/Referrals: Sobeida Richmond PA [Primary Care Provider, Medical] - See instructions Clinical Impressions Clinical Impression: CRIS (acute kidney injury), General weakness, Confusion, Hyperkalemia, Enterocolitis, Hydronephrosis, Hyperphosphatemia, UTI (urinary tract infection), Acute urinary retention Stand Alone Forms Stand Alone Forms: Transfer Record - ED Print Language Print Language: Kinyarwanda Discharge ED Provider: Beth Arce General Adult HPI <TONY Powers - Last Filed: 10/23/25 22:20> General Chief complaint: Weakness Stated complaint: confused, weak, abd pain Time Seen by Provider: 10/23/25 21:11 Mode of Arrival: Wheelchair Source of Information: Patient, Relative and Medical Record Limitations: Altered Mental Status History of Present Illness HPI narrative: 60-year-old female presents to the emergency department accompanied by her family members for a several day history of generalized weakness, worsened today, also endorses a 2-day history of diarrhea no abdominal pain no nausea or vomiting, and a 1 day history of confusion, GCS 14 at the bedside, alert to person and place disoriented to exact time and date, family provides additional history, patient has had no recorded Tmax, but subjective fever chills no chest pain no shortness of breath, noticed the patient to have worsening generalized weakness difficulty ambulating requiring assistance and essentially has been in bed all day today, noted to have diarrhea for the last 2 days that is nonbloody nonbilious, no constipation no urinary type symptomatology, no hematuria melena hematochezia or hematemesis per family. Also of note, patient had a fall today when attempting to ambulate rollator, patient has been utilizing rollator over the last few days, more than normal, patient apparently was transferring to her rollator walker when she slid backwards according to family member, striking her head, no LOC, complaining of lower back pain, no other obvious injury or complaint, this was a witnessed fall by family. Patient is a non-smoker denies any alcohol or drug use, other past medical history is consistent with osteopenia, hyperlipidemia, ALISHA/MDD, hypertension, T2DM, hypothyroidism, GERD, migraines. Of note patient's family ember states that she has had a steady decline in her activities of daily living, since June 2025, patient was admitted due to sepsis due to nonspecific colitis according to family ember at [facility]. Initial triage vitals are notable for tachycardia, blood pressure 103 systolic, and SpO2 of 94%, afebrile, otherwise unremarkable vitals. Please note that above description of symptoms, in this electronic medical record under categorization of recalled from ER triage doctor by RN are reflective of an initial nursing assessment, however, is not reflective of my full history and physical exam that was personally taken and clarified. Consequentially, this preceding description of symptoms, which may include the patient's categorized chief complaint in the EMR, do not reflect my personal clinical impression, and the ultimate description of history of present illness and patient stated complaints should be deferred to this section of the note. Unless stated otherwise or congruent with this section of the note, additional signs, symptoms, or incongruence should be interpreted as inaccurate with my clinical impression. Onset (ago): day(s) Related Data Home Medications ?Medication ?Instructions ?Recorded ?Confirmed alendronate 70 mg tablet 70 mg PO WEEKLY 04/11/25 09/02/25 baclofen 10 mg tablet 10 mg PO TID 04/11/25 09/02/25 metformin 500 mg tablet,extended 500 mg PO DAILY 04/11/25 09/02/25 release 24 hr tramadol 50 mg tablet 50 mg PO TIDP PRN Moderate Pain 04/11/25 09/03/25 (Scale Score 5-6) atorvastatin 10 mg tablet 10 mg PO HS 04/12/25 09/02/25 ubrogepant 100 mg tablet (Ubrelvy) 100 mg PO DAILYP PRN migraine 04/12/25 09/02/25 headache aspirin 81 mg tablet 81 mg PO DAILY 09/02/25 09/02/25 trazodone 100 mg tablet 100 mg PO HS 09/02/25 09/03/25 levothyroxine 88 mcg tablet 88 mcg PO DAILY 09/03/25 09/03/25 lisinopril 2.5 mg tablet 2.5 mg PO DAILY 09/03/25 09/03/25 Previous Rx's ?Medication ?Instructions ?Recorded cefdinir 300 mg capsule 300 mg PO BID 3 days #6 caps 09/04/25 omeprazole 40 mg capsule,delayed 40 mg PO BID 30 days #60 caps 09/04/25 release Allergies Allergy/AdvReac Type Severity Reaction Status Date / Time sumatriptan (From IMITREX) Allergy Severe S-DROP IN Verified 01/01/25 09:50 B/P Penicillins (PENICILLINS) Allergy Intermediate I-HIVES Verified 01/01/25 09:50 topiramate (From Topamax) Allergy Intermediate S-DROP IN Verified 01/01/25 09:50 B/P [facility] <TONY Powers - Last Filed: 10/23/25 22:20> [facility] Disclaimer: The information contained in this section may have been updated after the patient was seen, as this information can be updated by other users. Medical History Depression Anxiety Hyperlipidemia Hypertension Hypothyroidism Concussion Fracture of lumbar spine Surgical History delivery delivered H/O thyroidectomy History of facial surgery Family History Other Family history of diabetes mellitus Family history of heart disease Social History Smoking Status: Never smoker alcohol intake: never substance use type: denies use current occupational status: retired Travel in the last 8 weeks?: None household members: spouse housing: house caffeine: Yes Have you lived/traveled outside [place] in past 30 days?: No Contact w/someone who lives/traveled outside US past 30 days?: No Exposure to someone with infectious disease in past 14 days?: No Do you have a fever (greater than 100.4 F or 38 C)?: No Have you tested positive for COVID-19?: No Exposed to someone with COVID-19 in past 14 days?: No Do you have a sore throat?: No Do you have a cough?: No Do you have any weakness?: No Do you have any diarrhea?: No Are you experiencing any unusual bleeding?: No Do you have any muscle aches/pain?: No Do you have any abdominal pain?: No Are you experiencing loss of taste or smell?: No Other Medical History Have you received the Flu Vaccine for this season: No Have you received the Pneumonia Vaccine: No <TONY Powers - Last Filed: 10/23/25 22:20> ROS Obtained: Yes All systems reviewed & no additional complaints except as documented Physical Exam <TONY Powers - Last Filed: 10/23/25 22:20> General General appearance: alert and in no apparent distress Comment: Dry mucous membranes, ill-appearing female of stated age Head Head exam: atraumatic and normocephalic Eye Eye exam: Present PERRL and EOMI ENT ENT exam: Present mucous membranes moist Neck Neck exam: Present normal inspection Chest Chest inspection: Present normal inspection and symmetric chest wall rise Respiratory Respiratory exam: Present normal lung sounds bilaterally; Absent respiratory distress, wheezes or stridor Cardiovascular Cardiovascular exam: Present regular rate and normal rhythm Abdominal Exam Abdominal exam: Present soft and tenderness; Absent guarding, rebound or rigidity Abdominal tenderness: Present diffuse and mild Extremities Exam Extremities exam: Present normal inspection, full ROM and other (Neurovasc intact, moves extremities to command, no obvious open fracture or traumatic dislocation/deformity.) Back Exam Back exam: Present tenderness and paraspinal tenderness; Absent vertebral tenderness Comment: Paraspinal tenderness to palpation to the lower lumbar spine, negative C-spine and T-spine paraspinal and spinal tenderness palpation, negative spinal send palpation of lower lumbar spine, no obvious step-offs or traumatic deformities Neurological Exam Neurological exam: Present alert and other (GCS of 14 disoriented to exact date and time, generalized global weakness noted, no obvious focal neurological deficit. ); Absent oriented X3 Psychiatric Psychiatric exam: Present normal affect Skin Skin exam: Present warm, dry and other (Dry mucous membranes) Medical Decision Making <TONY Powers - Last Filed: 10/23/25 22:20> Medical Records Medical records reviewed: Yes I reviewed the patient's medical records. Screening: Per USPSTF and CDC recommendations, given the prevalence of disease in our region, it is our hospital?s policy to screen for HIV and viral Hepatitis for all patients aged 18 and over and those with ongoing risk factors. Jose Ramon Inquiry Pt receiving controlled substance: No Jose Ramon was queried for this patient: No Vital Signs: 10/23/25 21:25 Temperature 97.7 F Temperature Source Axillary Pulse Rate [Right] 120 H Respiratory Rate 18 Blood Pressure [Right Arm] 103/88 L Blood Pressure Mean [Right Arm] 93 02 Sat by Pulse Oximetry 94 L Oxygen Delivery Method Room Air Lab Data Lab results reviewed: Yes I reviewed the patient's lab results. Lab Results 10/23/25 21:18: WBC 14.7 H, RBC 4.44, Hgb 11.3 L, Hct 35.2 L, MCV 79.3 L, MCH 25.5 L, MCHC 32.1, RDW 17.7 H, Plt Count 273, MPV 9.3, Neut % (Auto) 88.0 H, Lymph % (Auto) 6.1 L, [place] % (Auto) 3.9, Eos % (Auto) 0.5, Baso % (Auto) 0.3, Neut # (Auto) 13.0 H, Lymph # (Auto) 0.9, [place] # (Auto) 0.6, Eos # (Auto) 0.1, Baso # (Auto) 0.0, PT 13.1 H, INR 1.20 H, APTT 28.1, VBG pH 7.32, VBG pCO2 32.1 L, VBG pO2 56.6 H, VBG HCO3 16.1 L, VBG Total CO2 17.0 L, VBG O2 Saturation 85.7 H, VBG Base Excess -10.1 L, VBG Lactic Acid 3.8 H, Sodium 133 L, Potassium 6.4 H*, Chloride 104, Carbon Dioxide 15 L, Anion Gap 20.4 H, BUN 82 H, Creatinine 10.90 H, Estimated Creat Clear 6, Estimated GFR 4 L*, Est GFR ( Amer) 4 L*, Glucose 148 H, Calcium 9.2, Phosphorus 7.0 H, Magnesium 1.7, Total Bilirubin 0.6, AST 79 H, ALT 53, Alkaline Phosphatase 135 H, Troponin I < 0.01, NT-Pro-B Natriuret Pep 99.5, Total Protein 8.0, Albumin 3.9, Globulin 4.1 H, Albumin/Globulin Ratio 1.0 L, Lipase 339 H 10/23/25 21:52: Chlamy pneumoniae PCR Not detected, Adenovirus (PCR) Not detected, B. pertussis DNA (PCR) Not detected, Coronavirus OC43 (PCR) Not detected, Coronavirus HKU1 (PCR) Not detected, Coronavirus 229E (PCR) Not detected, SARS-CoV-2 (PCR) Not detected, Coronavirus NL63 (PCR) Not detected, Human Metapneumovir PCR Not detected, Influenza A (H1) PCR Not detected, Influ A (H1N1/09) PCR Not detected, Influenza A (H3) PCR Not detected, Influenza Type A (PCR) Not detected, Influenza Type B (PCR) Not detected, M. pneumoniae (PCR) Not detected, Parainfluenza 1 (PCR) Not detected, Parainfluenza 2 (PCR) Not detected, Parainfluenza 3 (PCR) Not detected, Parainfluenza 4 (PCR) Not detected, RSV (PCR) Not detected, Entero/Rhino (PCR) Not detected 10/23/25 21:54: Lactate 1.6 10/23/25 22:55: Urine Color Yellow, Urine Appearance Slightly cloudy, Urine pH 7.0, Ur Specific [place] 1.015, Urine Protein 2+ A, Urine Glucose (UA) Negative, Urine Ketones Negative, Urine Blood 1+ A, Urine Nitrate Positive A, Urine Bilirubin Negative, Urine Urobilinogen 0.2, Ur Leukocyte Esterase 3+ A, Urine RBC None, Urine WBC Tntc, Ur Squamous Epith Cells None, Urine Bacteria 3+ 10/23/25 21:18 10/23/25 21:18 Orders (Tests/Meds): ED MEDICATIONS Generic Name Dose Route Start Last Admin Trade Name Freq PRN Reason Stop Dose Admin Lactated Ringer's 2,040 mls @ 1,020 mls/hr 10/23/25 22:09 10/23/25 22:36 Lactated Ringer's 1000 Ml Bag 30 ml/kg infuse over 2 hr (2040 ml) 10/24/25 00:08 1,020 mls/hr IV Administration .Q2H ONE Sodium Chloride 1,000 mls @ 75 mls/hr 10/23/25 23:45 Sod Chlor 0.9% 1000ml Bag IV 11/22/25 23:44 .[id number] DARLIN Sodium Bicarbonate 150 meq/ 1,150 mls @ 100 mls/hr 10/23/25 23:53 Dextrose IV 11/22/25 23:52 .[id number] DARLIN Discontinued Medications Generic Name Dose Route Start Last Admin Trade Name Freq PRN Reason Stop Dose Admin Dextrose 50 ml 10/23/25 22:12 10/23/25 22:36 Dextrose 50% 50ml Syringe (Crash Cart) IVP 10/23/25 22:13 50 ml ONCE ONE Administration Calcium Gluconate/Sodium Chloride 1 gm in 50 mls @ 50 mls/hr 10/23/25 22:05 10/23/25 22:35 Calcium Gluconate 1,000mg/50ml Nacl Premix IV 10/23/25 23:04 50 mls/hr ONCE ONE Administration Cefepime HCl 2 gm/ Sodium 100 mls @ 200 mls/hr 10/23/25 22:06 10/23/25 23:00 Chloride IV 10/23/25 22:35 200 mls/hr ONCE ONE Administration Insulin Human Regular 10 unit 10/23/25 22:18 10/23/25 22:37 Insulin Human Regular 100 Units/Ml 10ml Vial IVP 10/23/25 22:19 10 unit ONCE ONE Administration ORDERS Category Date Time Status CT abdomen pelvis wo con Stat Cat Scan 10/23/25 21:[address] cervical spine wo con Stat Cat Scan 10/23/25 21:[address] chest wo con Stat Cat Scan 10/23/25 21:[address] head/brain wo con Stat Cat Scan 10/23/25 21:[address] lumbar spine wo con Stat Cat Scan 10/23/25 21:[address] thoracic spine wo con Stat Cat Scan 10/23/25 21:25 Completed Pelvis XR 1-2 views [XR pelvis 1-2V] Stat Exams 10/23/25 21:24 Completed XR chest portable Stat Exams 10/23/25 21:24 Completed BMP [Basic Metabolic Panel] Stat Lab 10/23/25 23:46 Ordered Complete Blood Count Auto Diff Stat Lab 10/23/25 21:18 Completed Comprehensive Metabolic Panel Stat Lab 10/23/25 21:18 Completed Diarrhea 23 Panel, PCR Stat Lab 10/23/25 22:07 Ordered Full Resp Panel w/COVID ([facility]) Routine Lab 10/23/25 21:52 Completed Lactic Acid Stat Lab 10/23/25 21:54 Completed Lipase Stat Lab 10/23/25 21:18 Completed Magnesium Stat Lab 10/23/25 21:18 Completed NT Pro Brain Natriuretic Pep. Stat Lab 10/23/25 21:18 Completed PHOS [Phosphorous] Stat Lab 10/23/25 21:18 Completed PT INR [Prothrombin Time INR] Stat Lab 10/23/25 21:18 Completed PTT [Activated Partial Thrombo Time] Stat Lab 10/23/25 21:18 Completed Troponin I Q3H Lab 10/24/25 00:30 Ordered Troponin I Q3H Lab 10/24/25 03:30 Ordered Troponin I Stat Lab 10/23/25 21:18 Completed Urinalysis and Microscopic Stat Lab 10/23/25 22:55 Completed Blood Culture Stat Micro 10/23/25 21:40 Received Urine Culture Stat Micro 10/23/25 22:55 Received VBG [Venous Blood Gas] Stat RT 10/23/25 21:18 Completed 12-lead EKG Request [ECG Request] Stat Y 10/23/25 21:19 Ordered Medical Decision Narrative: 60-year-old female presents to the emergency department with altered mental status abdominal pain diarrhea generalized weakness, see HPI for detailed past medical history, differential diagnosis include but not limited to, cardiac arrhythmia, electrolyte disturbance, pneumonia, acute UTI, acute pyelonephritis, colitis, ileitis, gastroenteritis, constipation, sepsis, bowel obstruction, failure to thrive, acute kidney injury, hypovolemia, metabolic encephalopathy, uremic encephalopathy, encephalopathy, PE, acute SDH, traumatic SAH, C-spine fracture, T-spine fracture, L-spine fracture, soft tissue injury, delirium among others Will obtain basic laboratory studies, coagulation studies lactic acid level lipase level magnesium level proBNP troponin EKG, UA, full respiratory panel, obtain blood cultures, VBG, chest x-ray pelvic x-ray, also obtain CT head without contrast, CT of the CT and L-spine due to fall, will also obtain CT ab pelvis with contrast and CTA chest with and without contrast PE protocol. CBC notable for leukocytosis of 14.7, anemia with a hemoglobin 11.3 and 35.2, MCV is decreased 79.3, appears to be within baseline anemia. PTT is elevated at 13.1, INR is elevated at 1.2, PTT within normal limits CMP is noted for mild hyponatremia at 133, hyperkalemia at 6.4, anion gap at 20.4, BUN is elevated 82 and creatinine is elevated 10.9, AST is elevated 79, ALP is elevated at 135 and lipase is elevated to 339 Because of acute creatinine elevation will change angiographic and contrasted CT studies to noncontrasted studies. Will also initiate 2 L LR IV, and start workup for sepsis, will give 2 g IV cefepime, and 1 g IV calcium gluconate for hyperkalemia, will give 5% IV dextrose, and start 10 units of IV insulin. Will also add on phosphorus. proBNP within normal limits, troponin within normal limits less than 0.01. No lactic acidosis VBG is notable for pH 7.32, pCO2 is decreased at 32.1, bicarb is decreased 16.1, venous lactic acid elevated at 3.8, will place Major catheter to monitor I and O, will also expand diarrhea PCR panel. I discussed this patient's case with the attending physician at shift change, she will be assuming the remainder of the patient's care/workup, disposition is pending transfer versus admission for acute renal failure and electrolyte derangements in setting of sepsis <Beth Arce, DO - Last Filed: 10/24/25 00:00> Vital Signs: 10/23/25 21:25 Temperature 97.7 F Temperature Source Axillary Pulse Rate [Right] 120 H Respiratory Rate 18 Blood Pressure [Right Arm] 103/88 L Blood Pressure Mean [Right Arm] 93 02 Sat by Pulse Oximetry 94 L Oxygen Delivery Method Room Air Lab Data Lab Results 10/23/25 21:18: WBC 14.7 H, RBC 4.44, Hgb 11.3 L, Hct 35.2 L, MCV 79.3 L, MCH 25.5 L, MCHC 32.1, RDW 17.7 H, Plt Count 273, MPV 9.3, Neut % (Auto) 88.0 H, Lymph % (Auto) 6.1 L, [place] % (Auto) 3.9, Eos % (Auto) 0.5, Baso % (Auto) 0.3, Neut # (Auto) 13.0 H, Lymph # (Auto) 0.9, [place] # (Auto) 0.6, Eos # (Auto) 0.1, Baso # (Auto) 0.0, PT 13.1 H, INR 1.20 H, APTT 28.1, VBG pH 7.32, VBG pCO2 32.1 L, VBG pO2 56.6 H, VBG HCO3 16.1 L, VBG Total CO2 17.0 L, VBG O2 Saturation 85.7 H, VBG Base Excess -10.1 L, VBG Lactic Acid 3.8 H, Sodium 133 L, Potassium 6.4 H*, Chloride 104, Carbon Dioxide 15 L, Anion Gap 20.4 H, BUN 82 H, Creatinine 10.90 H, Estimated Creat Clear 6, Estimated GFR 4 L*, Est GFR ( Amer) 4 L*, Glucose 148 H, Calcium 9.2, Phosphorus 7.0 H, Magnesium 1.7, Total Bilirubin 0.6, AST 79 H, ALT 53, Alkaline Phosphatase 135 H, Troponin I < 0.01, NT-Pro-B Natriuret Pep 99.5, Total Protein 8.0, Albumin 3.9, Globulin 4.1 H, Albumin/Globulin Ratio 1.0 L, Lipase 339 H 10/23/25 21:52: Chlamy pneumoniae PCR Not detected, Adenovirus (PCR) Not detected, B. pertussis DNA (PCR) Not detected, Coronavirus OC43 (PCR) Not detected, Coronavirus HKU1 (PCR) Not detected, Coronavirus 229E (PCR) Not detected, SARS-CoV-2 (PCR) Not detected, Coronavirus NL63 (PCR) Not detected, Human Metapneumovir PCR Not detected, Influenza A (H1) PCR Not detected, Influ A (H1N1/09) PCR Not detected, Influenza A (H3) PCR Not detected, Influenza Type A (PCR) Not detected, Influenza Type B (PCR) Not detected, M. pneumoniae (PCR) Not detected, Parainfluenza 1 (PCR) Not detected, Parainfluenza 2 (PCR) Not detected, Parainfluenza 3 (PCR) Not detected, Parainfluenza 4 (PCR) Not detected, RSV (PCR) Not detected, Entero/Rhino (PCR) Not detected 10/23/25 21:54: Lactate 1.6 10/23/25 22:55: Urine Color Yellow, Urine Appearance Slightly cloudy, Urine pH 7.0, Ur Specific [place] 1.015, Urine Protein 2+ A, Urine Glucose (UA) Negative, Urine Ketones Negative, Urine Blood 1+ A, Urine Nitrate Positive A, Urine Bilirubin Negative, Urine Urobilinogen 0.2, Ur Leukocyte Esterase 3+ A, Urine RBC None, Urine WBC Tntc, Ur Squamous Epith Cells None, Urine Bacteria 3+ Orders (Tests/Meds): ED MEDICATIONS Generic Name Dose Route Start Last Admin Trade Name Freq PRN Reason Stop Dose Admin Lactated Ringer's 2,040 mls @ 1,020 mls/hr 10/23/25 22:09 10/23/25 22:36 Lactated Ringer's 1000 Ml Bag 30 ml/kg infuse over 2 hr (2040 ml) 10/24/25 00:08 1,020 mls/hr IV Administration .Q2H ONE Sodium Chloride 1,000 mls @ 75 mls/hr 10/23/25 23:45 Sod Chlor 0.9% 1000ml Bag IV 11/22/25 23:44 .[id number] DARLIN Sodium Bicarbonate 150 meq/ 1,150 mls @ 100 mls/hr 10/23/25 23:53 Dextrose IV 11/22/25 23:52 .[id number] DARLIN Discontinued Medications Generic Name Dose Route Start Last Admin Trade Name Freq PRN Reason Stop Dose Admin Dextrose 50 ml 10/23/25 22:12 10/23/25 22:36 Dextrose 50% 50ml Syringe (Crash Cart) IVP 10/23/25 22:13 50 ml ONCE ONE Administration Calcium Gluconate/Sodium Chloride 1 gm in 50 mls @ 50 mls/hr 10/23/25 22:05 10/23/25 22:35 Calcium Gluconate 1,000mg/50ml Nacl Premix IV 10/23/25 23:04 50 mls/hr ONCE ONE Administration Cefepime HCl 2 gm/ Sodium 100 mls @ 200 mls/hr 10/23/25 22:06 10/23/25 23:00 Chloride IV 10/23/25 22:35 200 mls/hr ONCE ONE Administration Insulin Human Regular 10 unit 10/23/25 22:18 10/23/25 22:37 Insulin Human Regular 100 Units/Ml 10ml Vial IVP 10/23/25 22:19 10 unit ONCE ONE Administration ORDERS Category Date Time Status CT abdomen pelvis wo con Stat Cat Scan 10/23/25 21:[address] cervical spine wo con Stat Cat Scan 10/23/25 21:[address] chest wo con Stat Cat Scan 10/23/25 21:[address] head/brain wo con Stat Cat Scan 10/23/25 21:[address] lumbar spine wo con Stat Cat Scan 10/23/25 21:[address] thoracic spine wo con Stat Cat Scan 10/23/25 21:25 Completed Pelvis XR 1-2 views [XR pelvis 1-2V] Stat Exams 10/23/25 21:24 Completed XR chest portable Stat Exams 10/23/25 21:24 Completed BMP [Basic Metabolic Panel] Stat Lab 10/23/25 23:46 Ordered Complete Blood Count Auto Diff Stat Lab 10/23/25 21:18 Completed Comprehensive Metabolic Panel Stat Lab 10/23/25 21:18 Completed Diarrhea 23 Panel, PCR Stat Lab 10/23/25 22:07 Ordered Full Resp Panel w/COVID ([facility]) Routine Lab 10/23/25 21:52 Completed Lactic Acid Stat Lab 10/23/25 21:54 Completed Lipase Stat Lab 10/23/25 21:18 Completed Magnesium Stat Lab 10/23/25 21:18 Completed NT Pro Brain Natriuretic Pep. Stat Lab 10/23/25 21:18 Completed PHOS [Phosphorous] Stat Lab 10/23/25 21:18 Completed PT INR [Prothrombin Time INR] Stat Lab 10/23/25 21:18 Completed PTT [Activated Partial Thrombo Time] Stat Lab 10/23/25 21:18 Completed Troponin I Q3H Lab 10/24/25 00:30 Ordered Troponin I Q3H Lab 10/24/25 03:30 Ordered Troponin I Stat Lab 10/23/25 21:18 Completed Urinalysis and Microscopic Stat Lab 10/23/25 22:55 Completed Blood Culture Stat Micro 10/23/25 21:40 Received Urine Culture Stat Micro 10/23/25 22:55 Received VBG [Venous Blood Gas] Stat RT 10/23/25 21:18 Completed 12-lead EKG Request [ECG Request] Stat Y 10/23/25 21:19 Ordered ECG Data Tracing #1: I reviewed this ECG and interpreted as documented below: I independently turbid EKG at 2119 and sinus tachycardia with a ventricular rate of [address] changes concerning for STEMI. ECG initial impression date: 10/23/25 ECG initial impression time: 21:19 Medical Decision Narrative: 60-year-old female presents to the emergency department with altered mental status abdominal pain diarrhea generalized weakness, see HPI for detailed past medical history, differential diagnosis include but not limited to, cardiac arrhythmia, electrolyte disturbance, pneumonia, acute UTI, acute pyelonephritis, colitis, ileitis, gastroenteritis, constipation, sepsis, bowel obstruction, failure to thrive, acute kidney injury, hypovolemia, metabolic encephalopathy, uremic encephalopathy, encephalopathy, PE, acute SDH, traumatic SAH, C-spine fracture, T-spine fracture, L-spine fracture, soft tissue injury, delirium among others Will obtain basic laboratory studies, coagulation studies lactic acid level lipase level magnesium level proBNP troponin EKG, UA, full respiratory panel, obtain blood cultures, VBG, chest x-ray pelvic x-ray, also obtain CT head without contrast, CT of the CT and L-spine due to fall, will also obtain CT ab pelvis with contrast and CTA chest with and without contrast PE protocol. CBC notable for leukocytosis of 14.7, anemia with a hemoglobin 11.3 and 35.2, MCV is decreased 79.3, appears to be within baseline anemia. PTT is elevated at 13.1, INR is elevated at 1.2, PTT within normal limits CMP is noted for mild hyponatremia at 133, hyperkalemia at 6.4, anion gap at 20.4, BUN is elevated 82 and creatinine is elevated 10.9, AST is elevated 79, ALP is elevated at 135 and lipase is elevated to 339 Because of acute creatinine elevation will change angiographic and contrasted CT studies to noncontrasted studies. Will also initiate 2 L LR IV, and start workup for sepsis, will give 2 g IV cefepime, and 1 g IV calcium gluconate for hyperkalemia, will give IV dextrose, and start 10 units of IV insulin. Will also add on phosphorus. proBNP within normal limits, troponin within normal limits less than 0.01. No lactic acidosis VBG is notable for pH 7.32, pCO2 is decreased at 32.1, bicarb is decreased 16.1, venous lactic acid elevated at 3.8, will place Major catheter to monitor I and O, will also expand diarrhea PCR panel. I discussed this patient's case with the attending physician at shift change, she will be assuming the remainder of the patient's care/workup, disposition is pending transfer versus admission for acute renal failure and electrolyte derangements in setting of sepsis DO Claude: I was consulted by the PARVIN, and we discussed the complexity of the problems being addressed. I approved the treatment and management plan for this patient's care in the emergency department, thus performing a substantive portion of the medical decision making. I assumed care of the patient at time of departure of the PARVIN. The patient has had a progressive decline since June with unintentional weight loss of 60 pounds, multiple hospital admissions, including an admission to [facility] just before for sepsis and C. difficile enterocolitis. She has had diarrhea, urinary incontinence, confusion. Patient arrives critically ill with severe CRIS with a creatinine of 10.9, hyperkalemia, metabolic acidosis. CT scans without contrast from head to pelvis were obtained that demonstrated concerns for bilateral hydronephrosis with bladder distention on my independent interpretation. Given this in the setting of severe CRIS, elected to anchor a Major catheter. Patient had 1.8 L of urine out after Major catheter placement. Urine was very cloudy and purulent. Urine is grossly concerning for infection. She has not yet provided a stool specimen. Given history of recent C. difficile, elected to start the patient empirically on cefepime and Flagyl. She is getting 2 L of IV fluids. She is getting calcium gluconate for hyperkalemia as well as dextrose and insulin. I had an indirect discussion with her hospitalist who advised that given that the patient has severe CRIS with creatinine greater than 10, they feel she benefit from transfer to higher level of care with nephrology. I then had indirect discussion with Dr. Cummins at [facility] who waitlisted the patient. They do not anticipate a bed available tonight, so they recommend trying elsewhere. I then had an interactive discussion with PARVIN Neelima Babin at [place] who graciously excepted the patient for transfer. She had me speak with their e commerce director, Dr. Jose, who recommended bicarb drip as well as continuing IV fluids at 75/h. I ordered these. Ultimately, patient was transferred in stable condition. Beth Arce DO Critical Care <TONY Powers - Last Filed: 10/23/25 22:20> Critical Care Time Critical Care Time: Yes Attestation: On 10/23/25, the high probability of a clinically significant, sudden or life threatening deterioration of the following system(s) required my full and direct attention, intervention and personal management. The time I documented below is in addition to time spent performing reported procedures but includes the following listed in this critical care notation. Total Time Total Critical Care Time: 60 <Beth Arce DO - Last Filed: 10/24/25 00:00> Critical Care Time Critical Care Time: Yes Attestation: On 10/23/25, the high probability of a clinically significant, sudden or life threatening deterioration of the following system(s) required my full and direct attention, intervention and personal management. The time I documented below is in addition to time spent performing reported procedures but includes the following listed in this critical care notation.
--- NOTE | 2025-10-23 21:18 | ECG_ITS ---
APPROVED REPORT Exam: Resting ECG HR:111 bpm ECG Measurements Heart Rate 111 AXES ND 164 P -6 QRSd 89 QRS 227 QT 314 T 61 QTc 379 Conclusion SINUS TACHYCARDIA WITH FREQUENT VENTRICULAR PREMATURE COMPLEXES POSSIBLE RIGHT VENTRICULAR HYPERTROPHY [SOME/ALL OF: PROMINENT R IN V1, LATE TRANSITION, RAD, WHIT, SSS] INFERIOR MYOCARDIAL INFARCTION , OF INDETERMINATE AGE [40+ ms Q WAVE AND/OR ST/T ABNORMALITY IN II/aVF] ANTEROSEPTAL MYOCARDIAL INFARCTION , OF INDETERMINATE AGE [40+ ms Q WAVE IN V1-V4] ABNORMAL ECG UNCONFIRMED REPORT Electronically signed by : ARLEEN MUIR, 10/25/2025 07:01:21
--- OUTSIDE RECORDS SUMMARY | 2025-10-23 21:23 | XMS_ITS | Encounter Summary ---
[facility] [address] [place] [address] Care Team Providers Care Wood Floor Layer Name Role Phone Basilio Deschutes TONY Primary Care Provider [phone] Encounter Details Date Type Department Care Team (Late st Contact Info) Description 10/21/2025 Readmission Management [facility] [address] [place] [phone] Kori Bhakta RN Social History Tobacco Use Types Packs/Day Years [...] care, and heating? Not very hard 09/27/2025 [facility] [place] [facility] Occupat ional Health - Occupational Stress [...] things needed for daily living? No 09/27/2025 [facility] Utilities Answer Date Recorded In the past [...] GED or equivalent No 09/27/2025 Preferred Language Angolan 09/27/2025 PHQ-2 Answer Date Recorded Patient Health Questionnaire-2 Score 0 09/27/2025 Comments No Sex and Gender Information Value Date Recorded Sex Assigned at Not on file Legal Sex Female 10:45 AM EDT Gender Identity Not on file Sexual Orientation Not on file documented as of this encounter Miscellaneous Notes * Outreach Note - Kori Bhakta, RN - 10/21/2025 2:29 PM EST Sepsis Week 1 Survey Flowsheet Row Responses [facility] patient discharged from? [place] Does the patient have one of the following disease processes/diagnoses(primary or secondary)? Sepsis Week 1 attempt successful? No Unsuccessful attempts Attempt 2 Discharge diagnosis Colitis KORI H - Registered Nurse documented in this encounter Plan of Treatment Upcoming Encounters Date Type Department Care Team (Late st Contact Info) Description 12/31/2025 10:45 AM EST Office Visit [facility] [address] [facility] [address] [place] [id number] Breanne Peterson, REBAR WORKER [address] [facility] [address] [place] [address] documented as of this encounter Visit Diagnoses Not on filedocumented in this encounter Additional Health Concerns Infection Onset Date Last Indicated Resolved Time C.difficile 09/27/2025 09/27/2025 documented as of this encounter Care Teams Wood Floor Layer Relationship Specialty Start Date End Date Sobeida Richmond PA [address] [place] [address] PCP - General Physician Outside Solar Sales Consultant 10/02/25 documented as of this encounter
--- OUTSIDE RECORDS SUMMARY | 2025-10-23 21:23 | XMS_ITS | Continuity of Care Document ---
Author Organization [place] - [employer] [facility] Address [address] [place] [address] Assessment No assessment recorded. 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 [address] [place] [address], [id number], 10/12/2025 04:07:54 HbA1c (hemoglo bin A1c), blood 2024 025 [facility]ORVIK [facility] [place], [address] [place] [address], [id number], 10/12/2025 04:07:54 Referral None recorded . Procedures None recorded . Surgeries None recorded . Imaging None recorded . Medication Orders None recorded . Patient TargetsNo targets recorded. Patient Instructions Encounter Date Encounter Id Patient Instructions Last Modified By Organization Details Last Modified Time 10/11/2025 [id number] learning about type 2 diabetes [email or web address] Not available 10/11/2025 16:36:47 type 2 diabetes: care instructions [email or web address] Not available 10/11/2025 16:36:47 abnormal weight loss: care instructions [email or web address] Not available 10/17/2025 15:32:49 Reason for Referral None Reported. Results Created Date Observation Date Name Description Value Unit Range Abnormal Flag Note LastModifiedBy Organization Detail LastModifiedTime 10/11/20 25 10/12/2025 CBC WITH DIFFE RENTI AL/PL ATELE T WBC 14.1 x10e3 /uL 3.4-10 .8 above high normal Not Available [facility] ([facility]) [address] [facility], [place], [address], 10/12/2025 04:07:53 10/11/20 25 10/12/2025 CBC WITH DIFFE RENTI AL/PL ATELE T RBC 4.56 x10e6 /uL 3.77-5 .28 normal Not Available [facility] ([facility]) [address] [place], [address], 10/12/2025 04:07:53 10/11/20 25 10/12/2025 CBC WITH DIFFE RENTI AL/PL ATELE T hemoglobin 11.7 g/dL 11.1-1 5.9 normal Not Available [facility] ([facility]) [address] [place], [address], 10/12/2025 04:07:53 10/11/20 25 10/12/2025 CBC WITH DIFFE RENTI AL/PL ATELE T hematocrit 37.1 % 34.0-4 6.6 normal Not Available [facility] ([facility]) [address] [place], [address], 10/12/2025 04:07:53 10/11/20 25 10/12/2025 CBC WITH DIFFE RENTI AL/PL ATELE T MCV 81 fL 79-97 normal Not Available [facility] ([facility]) [address] [place], [address], 10/12/2025 04:07:53 10/11/20 25 10/12/2025 CBC WITH DIFFE RENTI AL/PL ATELE T MCH 25.7 pg 26.6-3 3.0 below low normal Not Available [facility] ([facility]) [address] [facility], [place], [address], 10/12/2025 04:07:53 10/11/20 25 10/12/2025 CBC WITH DIFFE RENTI AL/PL ATELE T MCHC 31.5 g/dL 31.5-3 5.7 normal Not Available [facility] ([facility]) [address] [facility], [place], [address], 10/12/2025 04:07:53 10/11/20 25 10/12/2025 CBC WITH DIFFE RENTI AL/PL ATELE T RDW 16.6 % 11.7-1 5.4 above high normal Not Available [facility] ([facility]) [address] [facility], [place], [address], 10/12/2025 04:07:53 10/11/20 25 10/12/2025 CBC WITH DIFFE RENTI AL/PL ATELE T platelets 398 x10e3 /uL 150-45 0 normal Not Available [facility] ([facility]) [address] [facility], [place], [address], 10/12/2025 04:07:53 10/11/20 25 10/12/2025 CBC WITH DIFFE RENTI AL/PL ATELE T neutrophils 82 % not estab. normal Not Available [facility] ([facility]) [address] [facility], [place], [address], 10/12/2025 04:07:53 10/11/20 25 10/12/2025 CBC WITH DIFFE RENTI AL/PL ATELE T lymphs 10 % not estab. normal Not Available [facility] ([facility]) [address] [place], [address], 10/12/2025 04:07:53 10/11/20 25 10/12/2025 CBC WITH DIFFE RENTI AL/PL ATELE T monocytes 6 % not estab. normal Not Available [facility] ([facility]) [address] [place], [address], 10/12/2025 04:07:53 10/11/20 25 10/12/2025 CBC WITH DIFFE RENTI AL/PL ATELE T eos 1 % not estab. normal Not Available [facility] ([facility]) [address] [facility], [place], [address], 10/12/2025 04:07:53 10/11/20 25 10/12/2025 CBC WITH DIFFE RENTI AL/PL ATELE T basos 0 % not estab. normal Not Available [facility] ([facility]) [address] [place], [address], 10/12/2025 04:07:53 10/11/20 25 10/12/2025 CBC WITH DIFFE RENTI AL/PL ATELE T immature cells DEFLECTOR OPERATOR Not Available [facility]) [address] [place], [address], 10/12/2025 04:07:53 10/11/20 25 10/12/2025 CBC WITH DIFFE RENTI AL/PL ATELE T neutrophils (absolute) 11.6 x10e3 /uL 1.4-7. 0 above high normal Not Available [facility] ([facility]) [address] [place], [address], 10/12/2025 04:07:53 10/11/20 25 10/12/2025 CBC WITH DIFFE RENTI AL/PL ATELE T lymphs (absolute) 1.4 x10e3 /uL 0.7-3. 1 normal Not Available [facility] ([facility]) [address] [place], [address], 10/12/2025 04:07:53 10/11/20 25 10/12/2025 CBC WITH DIFFE RENTI AL/PL ATELE T monocytes(ab solute) 0.8 x10e3 /uL 0.1-0. 9 normal Not Available [facility] ([facility]) [address] [facility], [place], [address], 10/12/2025 04:07:53 10/11/20 25 10/12/2025 CBC WITH DIFFE RENTI AL/PL ATELE T eos (absolute) 0.2 x10e3 /uL 0.0-0. 4 normal Not Available [facility] ([facility]) [address] [facility], [place], [address], 10/12/2025 04:07:53 10/11/20 25 10/12/2025 CBC WITH DIFFE RENTI AL/PL ATELE T baso (absolute) 0.0 x10e3 /uL 0.0-0. 2 normal Not Available [facility] ([facility]) [address] [facility], [place], [address], 10/12/2025 04:07:53 10/11/20 25 10/12/2025 CBC WITH DIFFE RENTI AL/PL ATELE T immature granulocytes 1 % not estab. Not Available [facility] ([facility]) [address] [facility], [place], [address], 10/12/2025 04:07:53 10/11/20 25 10/12/2025 CBC WITH DIFFE RENTI AL/PL ATELE T immature grans (abs) 0.1 x10e3 /uL 0.0-0. 1 Not Available [facility] ([facility]) [address] [place], [address], 10/12/2025 04:07:53 10/11/20 25 10/12/2025 CBC WITH DIFFE RENTI AL/PL ATELE T NRBC DEFLECTOR OPERATOR Not Available [facility] ([facility]) [address] [facility], [place], [address], 10/12/2025 04:07:53 10/11/20 25 10/12/2025 CBC WITH DIFFE RENTI AL/PL ATELE T hematology comments: DEFLECTOR OPERATOR Not Available [facility]) [address] [facility] [place], [address], 10/12/2025 04:07:53 10/11/20 25 10/12/2025 COMP. METAB OLIC PANEL (14) glucose 124 mg/dL 70-99 above high normal Not Available [facility] ([facility]) [address] [facility] [place], [address], 10/12/2025 04:07:54 10/11/20 25 10/12/2025 COMP. METAB OLIC PANEL (14) BUN 12 mg/dL 8-27 normal Not Available [facility] ([facility]) [address] [facility] [place], [address], 10/12/2025 04:07:54 10/11/20 25 10/12/2025 COMP. METAB OLIC PANEL (14) creatinine 1.18 mg/dL 0.57-1 .00 above high normal Not Available [facility] ([facility]) [address] [facility] [place], [address], 10/12/2025 04:07:54 10/11/20 25 10/12/2025 COMP. METAB OLIC PANEL (14) eGFR 52 mL/mi n/1.7 3 >59 below low normal Not Available [facility] ([facility]) [address] [facility] [place], [address], 10/12/2025 04:07:54 10/11/20 25 10/12/2025 COMP. METAB OLIC PANEL (14) BUN/creatini ne ratio 10 12-28 below low normal Not Available [facility] ([facility]) [address] [facility] [place], [address], 10/12/2025 04:07:54 10/11/20 25 10/12/2025 COMP. METAB OLIC PANEL (14) sodium 144 mmol/ L 134-14 4 normal Not Available [facility] ([facility]) [address] [facility] [place], [address], 10/12/2025 04:07:54 10/11/20 25 10/12/2025 COMP. METAB OLIC PANEL (14) potassium 3.2 mmol/ L 3.5-5. 2 below low normal Not Available [facility] ([facility]) [address] [facility] [place], [address], 10/12/2025 04:07:54 10/11/20 25 10/12/2025 COMP. METAB OLIC PANEL (14) chloride 103 mmol/ L 96-106 normal Not Available [facility] ([facility]) [address] [facility] [place], [address], 10/12/2025 04:07:54 10/11/20 25 10/12/2025 COMP. METAB OLIC PANEL (14) carbon dioxide, total 20 mmol/ L 20-29 normal Not Available [facility] ([facility]) [address] [facility] [place], [address], 10/12/2025 04:07:54 10/11/20 25 10/12/2025 COMP. METAB OLIC PANEL (14) calcium 9.3 mg/dL 8.7-10 .3 normal Not Available [facility] ([facility]) [address] [facility] [place], [address], 10/12/2025 04:07:54 10/11/20 25 10/12/2025 COMP. METAB OLIC PANEL (14) protein, total 6.8 g/dL 6.0-8. 5 normal Not Available [facility] ([facility]) [address] [facility] [place], [address], 10/12/2025 04:07:54 10/11/20 25 10/12/2025 COMP. METAB OLIC PANEL (14) albumin 3.7 g/dL 3.9-4. 9 below low normal Not Available [facility] ([facility]) [address] [facility] [place], [address], 10/12/2025 04:07:54 10/11/20 25 10/12/2025 COMP. METAB OLIC PANEL (14) globulin, total 3.1 g/dL 1.5-4. 5 Not Available [facility] ([facility]) [address] [place], [address], 10/12/2025 04:07:54 10/11/20 25 10/12/2025 COMP. METAB OLIC PANEL (14) bilirubin, total 0.4 mg/dL 0.0-1. 2 normal Not Available [facility] ([facility]) [address] [place], [address], 10/12/2025 04:07:54 10/11/20 25 10/12/2025 COMP. METAB OLIC PANEL (14) alkaline phosphatase 85 IU/L 49-135 normal Not Available [facility]) [address] [place], [address], 10/12/2025 04:07:54 10/11/20 25 10/12/2025 COMP. METAB OLIC PANEL (14) AST (SGOT) 25 IU/L 0-40 normal Not Available [facility] ([facility]) [address] [place], [address], 10/12/2025 04:07:54 10/11/20 25 10/12/2025 COMP. METAB OLIC PANEL (14) ALT (SGPT) 14 IU/L 0-32 normal Not Available [facility] ([facility]) [address] [place], [address], 10/12/2025 04:07:54 10/11/20 25 10/12/2025 HEMOG LOBIN A1C hemoglobin A1C 6.4 % 4.8-5. 6 above high normal Predi abete s: 5.7 - 6.4 Diabe radha: >6.4 Glyce mary contr ol for adult s with diabe radha: <7.0 Not Available [facility] ([facility]) [address] [place], [address], 10/12/2025 04:07:54 Result Notes None recorded. Problems Name Problem SNOMED Code Status Onset Date Resolution Date Notes Provider Name and Address Organization Details Recorded Time Chronic neck pain 636785587666 7 Active 2023 TONY Tim [address] [place] [address], [address], [employer] 4 10:34:35 Cervical spondylos is 528719003 Active 2023 Sobeida Richmond [address], [address], [employer] 4 10:34:48 Hypothyro idism 14900972 Active 2023 TONY Tim [address] [place] [address], [address], [employer] 4 10:35:00 Migraine 35817317 Active 2023 TONY Tim [address] [place] [address], [address], [employer] 5 13:15:35 Hyperlipi demia 55511626 Active 2023 Sobeida Richmond [address], [address], [employer] 4 10:35:31 Depressiv e disorder 80895891 Active 2023 TONY Tim [address] [place] [address], [address], [employer] 4 10:36:00 Influenza A virus present 692220686983 Completed 202301/10/2025 TONY Tim [address] [place] [address], [address], [employer] 5 13:25:22 Chronic kidney disease 382631307 Active 2023 TONY Tim [address] [place] [address], [address], [employer] 4 13:08:43 Acute right otitis media 074006576 Completed 202301/10/2025 TONY Tim [address] [place] [address], [address], [employer] 5 13:25:10 Generaliz ed anxiety disorder 73298266 Active 2023 TONY Tim [address] [place] [address], [address] 8, [employer] 4 13:08:53 Vitamin D deficienc y 56281318 Active 2023 TONY Tim [address] [place] [address], [address], [employer] 4 13:08:48 Newly diagnosed diabetes 983627457 Active 2023 TONY Tim [address] [place] [address], 18[address] 8, [employer] 4 17:00:53 Type 2 diabetes mellitus without complicat ion 963178615 Active 2023 TONY Tim [address] [place] [address], [address], [employer] 4 17:04:31 Diabetes mellitus 59266794 Active 2023 TONY Tim [address] [place] [address], [address] 8, [employer] 5 13:25:17 Fracture at wrist and/or hand level 829055468 Completed 202308/23/2025 TONY Tim [address] [place] [address], [address], [employer] 5 14:50:11 Fracture of shoulder 431545121092 36867 Completed 202308/23/2025 TONY Tim [address] [place] [address], [address], [employer] 5 14:50:07 Osteopeni a 000318904 Active 2024 TONY Tim [address] [place] [address], [address] 8, [employer] 14:58:45 Tachycard ia 1404278 Active 2024 TONY Tim [address] [place] [address], 19[address] 8, [employer] 15:28:41 Primary insomnia 1723166 Active 2024 TONY Tim [address] [place] [address], [address] 8, [employer] 17:14:39 Grief finding 274617612 Active 2024 TONY Tim [address] [place] [address], [address] 8, [employer] 14:51:12 Loss of appetite 65681853 Active 2024 TONY Tim [address] [place] [address], [address] 8, [employer] 14:54:01 Disorder of kidney due to diabetes mellitus 920512225 Active 2024 TONY Tim [address] [place] [address], [address], [employer] 12:20:03 Unintenti onal weight loss 699899707 Active 2024 TONY Tim [address] [place] [address], [address] 8, [employer] 5 09:37:58 Peptic ulcer 92450233 Active 2024 TONY Tim [address] [place] [address], [address] 8, [employer] 5 09:38:02 Malrotati on of small intestine 4185209599 Active 2024 TONY Tim [address] [place] [address], [address] 8, [employer] 5 09:38:11 Hypertrop hy of urinary bladder 529192947 Active 2024 TONY Tim [address] [place] [address], [address] 8, [employer] 5 09:38:17 Hypokalem ia 98658691 Active 2024 TONY Tim [address] [place] [address], 16[address] 8, [employer] 5 14:24:34 Weight decreased 201955022 Active 2024 TONY Tim [address] [place] [address], [address], [employer] 5 15:32:18 Problem Notes None recorded. Procedures Surgical History Date Name Laterality Status Provider Name and Address Organization Details Recorded Time 5 Gallbladder Surgery completed Elvia Yepez [employer] 04/23/2025 16:45:35 Diabetic Foot Screen completed TONY Tim [address] [place] [address], [address], [employer] 03/07/2025 13:17:20 Caesarean Section completed [employer] 10/01/2024 10:06:43 Tubal Ligation completed [employer] 10/01/2024 10:06:43 Thyroid Surgery completed [employer] 10/01/2024 10:06:43 Imaging Results None recorded. Procedure Notes None recorded. Medical Equipment None Reported. Allergies Allergen ID Allergen Name Allergen Category Reaction Reaction Severity Criticality Documentation Date Start Date Code Code System Note Provider Name and Address Organization Details Recorded Time 72833 Product containin g penicilli n (product) medicatio n rash Not available Not available 10/01/2024 77310 8001 SNOMED Meg [employer], [employer] 4 10:06:41 87731 sumatript an medicatio n Not available Not available Not available 10/04/20252016 70072 RxNorm Not Available tab - External Data Service - prod 16:56:30 36305 topiramat e medicatio n Not available Not available Not available 10/04/20252016 79266 RxNorm Not Available tab - External Data Service - prod 16:56:30 Medications Name Sig Start Date Stop Date [...] as directed for 90 days, for thyroid. 10/11 completed Not Available Not Available Not Available Fosamax 70 mg tablet Take 1 tablet [...] oral route for 90 days, for bones. 10/11 completed Not Available Not Available Not Available desvenlafax ine succinate ER 50 mg tablet,exte [...] active Not Available Not Available Not Available potassium chloride ER 20 mEq tablet,exte nded release Take 1 tablet every day by oral route for 7 days. 2024 active Not Available Not Available Not Avai lable True Metrix Glucose Test Strip active Not [...] mass index (BMI) Body weight Oxygen saturation Heart rate Systolic And Diastolic Provider Name and Address Organization Details Last Updated DateTime 5 162.56 cm 26.6 kg/m2 59873.8 2 g 96 % 110 /min 108/77 mm[Hg] Elvia Yepez [employer] 5 16:01:00 Social History Question Answer Notes LastModified by Organizat ion Details LastModified Time Tobacco Smoking Status Never Smoker Meg [employer] null, [facility] [employer] 10/01/2024 10:06:43 Do You Have An [...] Information not available 08/20/2025 What Type Of Software Architect Do You Use? None Information not available [...] Or The Highest Degree You Have Received? [id number] Information not available 10/01/2024 How Many Days [...] Do You Have A Medical Power Of Accounts Payable Administrator? No Information not available 10/01/2024 What Was The Date Of Your Most Recent Tobacco Screening? 10/11/2025 Information not available 10/11/2025 Do You Have Any Pets? No Information [...] Restrictions? No Information not available 10/01/2024 Sex: Unknown Functional Status Question Answer Note LastModified by [...] anxious, or unable to sleep at night)? [id number] Information not available 10/01/2024 Do you have [...] History Condition Response Coronary Artery Disease N Gout N Other N Blood Diseases N Kidney Stones N Hyperthyroidism N Breast Cancer N Blood Transfusion N Emergency room visit since last appointm ent. Y COPD N Depression Y Dermatologic Disorders N Hypothyroidism N Lung Disease N Developmental or Behavioral Disorders N Defects or Inherited Disease N Breast Problem N Difficulty Swallowing N Anesthesia Complications N History of STI N Meniere's disease N Anxiety Disorder N Muscle, Joint, or Bone Problems Y Autoimmune disease N Vision or Eye Problems N Arthritis N Polyps N Infertility N Mental Disorder N Congenital Anomalies N Acid Reflux (GERD) N Cancer N Stroke N Neurologic/Epilepsy N Endometriosis N Bladder or Kidney Problems N High Cholesterol N Liver Disease N Organ Transplant N Psychiatric/Mental Health Condition N Fibromyalgia N Dialysis N Schizophrenia N Headaches Y Kidney Disease N Allergies/Hayfever N Heart Problems N Ear or Hearing Problems N Hospitalizations Y Learning Disorder N Artificial Joints N Thyroid [...] e and Address Organization Details Recorded Time Influenza, split virus, trivalent, PF 10/11/2025 completed [employer] null, [employer] 10/11/2025 16:46:43 COVID-19, mRNA, LNP-S, PF, 100 mcg/0.5mL dose or 50 mcg/0.25mL dose 11/13/2020 completed [employer] null, [employer] 11/05/2024 08:54:28 COVID-19, mRNA, LNP-S, PF, 100 mcg/0.5mL dose or 50 mcg/0.25mL dose 12/15/2020 completed Meg [employer] null, [employer] 11/05/2024 08:54:28 COVID-19, mRNA, LNP-S, PF, 100 mcg/0.5mL dose or 50 mcg/0.25mL dose 09/11/2021 completed Meg [employer] null, [employer] 11/05/2024 08:54:28 Past Encounters Encounter ID Performer Location Encounter Start Date Encounter Closed Date Diagnosis/Indication Diagnosis SNOMED-CT Code Diagnosis ICD10 Code Diagnosis IMO Codes Diagnosis Note [id number] TONY Tim [facility] [address] [place] [address] 09/19/2025 16:51:30 09/19/2025 17:15:53 Unintentional weight loss 662582564 R63.4 758520 Patient has lost 35 pounds since June Peptic ulcer 78066525 K2 7.9 90095 Prilosec not helping Malrotatio n of small intestine 8807393324 Q43.3 0816096042 Hypertroph y of urinary bladder 112508164 N32.89 971277 [id number] TONY Tim [facility] [address] [place] [address] 10/11/2025 15:43:43 10/11/2025 16:45:45 Requires influenza virus vaccination 170819510 Z23 507681 Type 2 alvina betes mellitus 38862975 E11.22 89602196 Weight decreased 5880762 01 R63.4 31775 [facility] is [facility] of pediasure drinks to try Peptic ulcer 04613620 K2 7.9 91680 Prilosec not helping Health Concerns Section Related Observation LastModified by Organization Detai ls LastModified Time None Recorded Concern Status LastModified by Organization Details LastModified Time None Recorded Payers Encounter Date Sequence Insurance Name Policy Number Policy Escamilla Covered Member ID Escamilla Member ID Guarantor Name 10/11/2025 1 [place] (MEDICARE REPLACEMENT HMO) [id number] Bella Presley [id number]ood Notes Date Note Type Note Provider Name and Address Organization Details Recorded Time 10/11/2025 text/html ROS as noted in the HPI Patient presents for followup. She was admitted finally for weight loss, weakness. Diagnosed with C diff despite not having true diarrhea - treated with oral Vanc. Her weight is stable today. Still has no appetite, is not really eating much. She is trying to eat more. Has PUD as well. TONY Tim [address] [place] [address], [address], [facility] [employer] 10/17/2025 15:36:04 OBGyn Episode No OBEpisode recorded.
--- OUTSIDE RECORDS SUMMARY | 2025-10-23 21:23 | XMS_ITS | Data Portability ---
Author Organization [employer] [facility] - [facility] Address [address] [place] [address] Assessment Encounter Date Assessment Date Assessment LastModified by Organization Details LastModified Time 09/19/2025 09/19/2025 Advised daughter to take her to ER for evaluation Gastro appt pending Rapid weight loss extremely concerning; now also concerned for SBO [email or web address] Not available 09/24/2025 09:39:28 Plan of Treatment Reminders Order Date Submit Date Provider Last Modified By Organization Details Last Modified Time Details Appointments FOLLOW UP 30 2024 04:00P Seema Richmond PA-C Not available Not available Not available Lab CBC w/ auto diff 2024 025 [facility] ([place]), [address] [place] [address], [address], 10/12/2025 04:07:54 CMP, serum or plasma 2024 025 [facility] ([place]), [address] [place] [address], [address], 10/12/2025 04:07:54 HbA1c (hemoglob in A1c), blood 2024 025 [facility] [place], [address], 10/12/2025 04:07:54 HbA1c (hemoglob in A1c), blood 2024 025 [email or web address] [facility], [facility] [facility], [place], [address], 06/20/2025 17:13:43 microalbu min/creat inine, mass ratio, urine 2024 025 [email or web address] [facility], [address] [facility], [place], [address], 06/20/2025 17:13:43 unlisted lab - toxassure flex 19, [id number] -[id number] 2024 025 [facility] ([place]), [address] [place], [address], 06/24/2025 09:07:44 CMP, serum or plasma 2024 025 [facility] [address] [place], [address], 06/22/2025 11:07:51 CBC w/ auto diff 2024 025 [facility] [address] [place], [address], 06/24/2025 09:07:45 lipid panel, serum 2024 025 [facility] [address] [place], [address], 06/22/2025 11:07:52 TSH, ultra-sen sitive, serum 2024 025 [facility] [address] [place], [address], 06/22/2025 11:07:53 Referral EGD referral 2024 025 [email or web address] Vijay Flores MD, [address], [place], [address], 10/16/2025 14:00:22 Procedures None recorded. Surgeries None recorded. Imaging None recorded. Medication Orders trazodone 100 mg tablet 2024 025 [facility], [address] [facility] [facility] [address], [place], [address], 06/20/2025 17:19:32 alcohol swabs 2024 025 [facility], [address] [facility] [facility] [address], [place], [address], 06/20/2025 17:19:39 Calcium 600 + D(3) 600 mg-10 mcg (400 unit) tablet 2024 025 [facility], [address] [facility] [address], [place], [address], 10/11/2025 16:09:18 Fosamax 70 mg tablet 2024 025 [facility], [address] [facility] [address], [place], [address], 06/20/2025 17:19:45 atorvasta tin 10 mg tablet 2024 025 [facility], [address] [facility] [address], [place], [address], 06/20/2025 17:19:44 tramadol 50 mg tablet 2024 025 [facility], [address] [facility] [address], [place], [address], 06/20/2025 17:19:35 baclofen 10 mg tablet 2024 025 [facility], [address] [facility] [address], [place], [address], 06/20/2025 17:19:50 cholecalc iferol (vitamin D3) 50 mcg (2,000 unit) capsule 2024 025 [facility], [address] [facility] [address], [place], [address], 08/26/2025 15:24:35 ergocalci ferol (vitamin D2) 1,250 mcg (50,000 unit) capsule 2024 025 [facility], [address] [place] [address], [address], 08/26/2025 15:24:34 Adult Low Dose Aspirin 81 mg tablet,de layed release 2024 025 [facility], [address] [place] [address], [address], 06/20/2025 17:19:40 lisinopri l 2.5 mg tablet 2024 025 [facility], [address] [place] [address], [address], 06/20/2025 17:19:49 metformin ER 500 mg tablet,ex tended release 24 hr 2024 025 [facility], [address] [place] [address], [address], 06/20/2025 17:19:37 levothyro xine 100 mcg tablet 2024 025 [facility], [address] [place] [address], [address], 10/11/2025 16:09:22 Patient TargetsNo targets recorded. Patient Instructions Encounter Date Encounter Id Patient Instructions Last Modified By Organization Details Last Modified Time 06/20/2025 [id number] learning about type 2 diabetes [email or web address] Not available 06/20/2025 17:13:42 type 2 diabetes: care instructions Not available 06/20/2025 17:13:42 dizziness: care instructions [email or web address] Not available 06/20/2025 17:19:12 cervical spondylosis: care instructions [email or web address] Not available 06/20/2025 17:15:13 neck arthritis: exercises [email or web address] Not available 06/20/2025 17:15:13 08/20/2025 [id number] anorexia: care instructions [email or web address] Not available 08/23/2025 14:54:08 grief (actual/anticipat ed): care instructions [email or web address] Not available 08/23/2025 14:51:17 type 2 diabetes: care instructions Not available 08/23/2025 14:51:17 hypothyroidism: care instructions [email or web address] Not available 08/23/2025 14:51:17 high cholesterol : care instructions [email or web address] Not available 08/23/2025 14:51:17 learning about mood disorders [email or web address] Not available 08/23/2025 14:51:17 10/11/2025 [id number] learning about type 2 diabetes Not available 10/11/2025 16:36:47 type 2 diabetes: care instructions [email or web address] Not available 10/11/2025 16:36:47 abnormal weight loss: care instructions [email or web address] Not available 10/17/2025 15:32:49 Reason for Referral EGD Referral for Loss of tanvi etite Referring Physician: Sobeida Richmond, Family Medicine, Encounter Date: 08/20/2025 Results Created Date Observation Date Name Description Value Unit Range Abnormal Flag Note LastModifiedBy Organization Detail LastModifiedTime 06/20/2006/22/2025 COMP. METAB OLIC PANEL (14) glucose 118 mg/dL 70-99 above high normal Not Available [facility] ([facility]) [address] [place], [address], 06/22/2025 11:07:51 06/20/20 25 06/22/2025 COMP. METAB OLIC PANEL (14) BUN 20 mg/dL 8-27 normal Not Available [facility] ([facility]) [address] [place], [address], 06/22/2025 11:07:51 06/20/20 25 06/22/2025 COMP. METAB OLIC PANEL (14) creatinine 1.16 mg/dL 0.57-1 .00 above high normal Not Available [facility] ([facility]) [address] [place], [address], 06/22/2025 11:07:51 06/20/20 25 06/22/2025 COMP. METAB OLIC PANEL (14) eGFR 53 mL/mi n/1.7 3 >59 below low normal Not Available [facility] ([facility]) [address] [place], [address], 06/22/2025 11:07:51 06/20/20 25 06/22/2025 COMP. METAB OLIC PANEL (14) BUN/creatini ne ratio 17 12-28 normal Not Available [facility] ([facility]) [address] [place], [address], 06/22/2025 11:07:51 06/20/20 25 06/22/2025 COMP. METAB OLIC PANEL (14) sodium 141 mmol/ L 134-14 4 normal Not Available [facility] ([facility]) [address] [place], [address], 06/22/2025 11:07:51 06/20/20 25 06/22/2025 COMP. METAB OLIC PANEL (14) potassium 4.3 mmol/ L 3.5-5. 2 normal Not Available [facility] ([facility]) [address] [place], [address], 06/22/2025 11:07:51 06/20/20 25 06/22/2025 COMP. METAB OLIC PANEL (14) chloride 100 mmol/ L 96-106 normal Not Available [facility] ([facility]) [address] [place], [address], 06/22/2025 11:07:51 06/20/20 25 06/22/2025 COMP. METAB OLIC PANEL (14) carbon dioxide, total 18 mmol/ L 20-29 below low normal Not Available [facility] ([facility]) [address] [place], [address], 06/22/2025 11:07:51 06/20/20 25 06/22/2025 COMP. METAB OLIC PANEL (14) calcium 9.8 mg/dL 8.7-10 .3 normal Not Available [facility] ([facility]) [address] [place], [address], 06/22/2025 11:07:51 06/20/20 25 06/22/2025 COMP. METAB OLIC PANEL (14) protein, total 7.5 g/dL 6.0-8. 5 normal Not Available [facility] ([facility]) [address] [place], [address], 06/22/2025 11:07:51 06/20/20 25 06/22/2025 COMP. METAB OLIC PANEL (14) albumin 4.4 g/dL 3.9-4. 9 normal Not Available [facility] ([facility]) [address] [place], [address], 06/22/2025 11:07:51 06/20/20 25 06/22/2025 COMP. METAB OLIC PANEL (14) globulin, total 3.1 g/dL 1.5-4. 5 Not Available [facility] ([facility]) [address] [place], [address], 06/22/2025 11:07:51 06/20/20 25 06/22/2025 COMP. METAB OLIC PANEL (14) bilirubin, total 0.2 mg/dL 0.0-1. 2 normal Not Available [facility] ([facility]) [address] [place], [address], 06/22/2025 11:07:51 06/20/20 25 06/22/2025 COMP. METAB OLIC PANEL (14) alkaline phosphatase 99 IU/L 44-121 normal Not Available [facility] ([facility]) [address] [place], [address], 06/22/2025 11:07:51 06/20/20 25 06/22/2025 COMP. METAB OLIC PANEL (14) AST (SGOT) 26 IU/L 0-40 normal Not Available [facility] ([facility]) [address] [place], [address], 06/22/2025 11:07:51 06/20/20 25 06/22/2025 COMP. METAB OLIC PANEL (14) ALT (SGPT) 30 IU/L 0-32 normal Not Available [facility] ([facility]) [address] [facility], [place], [address], 06/22/2025 11:07:51 06/20/20 25 06/22/2025 LIPID PANEL cholesterol, total 181 mg/dL 100-19 9 normal Not Available [facility] ([facility]) [address] [place], [address], 06/22/2025 11:07:52 06/20/20 25 06/22/2025 LIPID PANEL triglyceride s 148 mg/dL 0-149 normal Not Available [facility] ([facility]) [address] [place], [address], 06/22/2025 11:07:52 06/20/20 25 06/22/2025 LIPID PANEL HDL cholesterol 56 mg/dL >39 normal Not Available [facility] ([facility]) [address] [place], [address], 06/22/2025 11:07:52 06/20/20 25 06/22/2025 LIPID PANEL VLDL cholesterol agueda 26 mg/dL 5-40 Not Available [facility] ([facility]) [address] [place], [address], 06/22/2025 11:07:52 06/20/20 25 06/22/2025 LIPID PANEL LDL chol calc ([facility]) 99 mg/dL 0-99 Not Available [facility] ([facility]) [address] [place], [address], 06/22/2025 11:07:52 06/20/20 25 06/22/2025 LIPID PANEL LDL calc comment: SYSTEM SAFETY MANAGER Not Available [facility] ([facility]) [address] [facility], [place], [address], 06/22/2025 11:07:52 06/20/2006/22/2025 TSH TSH 2.750 uIU/m L 0.450- 4.500 normal Not Available [facility] ([facility]) [address] [facility], [place], [address], 06/22/2025 11:07:53 06/20/20 25 06/24/2025 TOXAS SURE FLEX 19, UR summary report [...] agueda consu ltati on, pleas e call [phone]. ===== ===== ===== ===== ===== ===== ===== ===== ===== ===== ===== ===== ===== === Not Available [facility] ([facility]) [address] [place], [address], 06/24/2025 09:07:44 06/20/2006/24/2025 TOXAS SURE FLEX 19, UR pdf . Not Available [facility] ([facility]) [address] [place], [address], 06/24/2025 09:07:44 06/20/2006/24/2025 TOXAS SURE FLEX 19, UR creatinine 201 mg/dL >=20 REFER ENCE RANGE : Ref Range >=20 Not Available [facility] ([facility]) [address] [place], [address], 06/24/2025 09:07:44 06/20/2006/24/2025 TOXAS SURE FLEX 19, UR amphetamines ia Negati ve NG/mL cutoff :300 Not Available [facility] ([facility]) [address] [place], [address], 06/24/2025 09:07:44 06/20/2006/24/2025 TOXAS SURE FLEX 19, UR benzodiazepi filemon Negati ve Not Available [facility] ([facility]) [address] [place], [address], 06/24/2025 09:07:44 06/20/2006/24/2025 TOXAS SURE FLEX 19, UR diazepam Not Detect ed NG/mg _crea t Not Available [facility] ([facility]) [address] [facility], [place], [address], 06/24/2025 09:07:44 06/20/2006/24/2025 TOXAS SURE FLEX 19, UR desmethyldia zepam Not Detect ed NG/mg _crea t Not Available [facility] ([facility]) [address] [facility], [place], [address], 06/24/2025 09:07:44 06/20/2006/24/2025 TOXAS SURE FLEX 19, UR oxazepam Not Detect ed NG/mg _crea t Not Available [facility] ([facility]) [address] [facility], [place], [address], 06/24/2025 09:07:44 06/20/2006/24/2025 TOXAS SURE FLEX 19, UR temazepam Not [...] raheem Oxaze raheem: None Not Available [facility] ([facility]) [address] [facility], [place], [address], 06/24/2025 09:07:44 06/20/20 25 06/24/2025 TOXAS SURE FLEX 19, UR alprazolam Not Detect ed NG/mg _crea t Not Available [facility] ([facility]) [address] [place], [address], 06/24/2025 09:07:44 06/20/20 25 06/24/2025 TOXAS SURE FLEX 19, UR alpha-hydrox yalprazolam Not Detect ed NG/mg _crea t Not Available [facility] ([facility]) [address] [place], [address], 06/24/2025 09:07:44 06/20/20 25 06/24/2025 TOXAS SURE FLEX 19, UR desalkylflur azepam Not Detect ed NG/mg _crea t Not Available [facility] ([facility]) [address] [place], [address], 06/24/2025 09:07:44 06/20/2006/24/2025 TOXAS SURE FLEX 19, UR lorazepam Not Detect ed NG/mg _crea t Not Available [facility] ([facility]) [address] [place], [address], 06/24/2025 09:07:44 06/20/2006/24/2025 TOXAS SURE FLEX 19, UR alpha-hydrox ytriazolam Not Detect ed NG/mg _crea t Not Available [facility] ([facility]) [address] [place], [address], 06/24/2025 09:07:44 06/20/20 25 06/24/2025 TOXAS SURE FLEX 19, UR clonazepam Not Detect ed NG/mg _crea t Not Available [facility] ([facility]) [address] [place], [address], 06/24/2025 09:07:44 06/20/20 25 06/24/2025 TOXAS SURE FLEX 19, UR 7-aminoclona zepam Not Detect ed NG/mg _crea t Not Available [facility] ([facility]) [address] [place], [address], 06/24/2025 09:07:44 06/20/20 25 06/24/2025 TOXAS SURE FLEX 19, UR midazolam Not Detect ed NG/mg _crea t Not Available [facility] ([facility]) [address] [place], [address], 06/24/2025 09:07:44 06/20/20 25 06/24/2025 TOXAS SURE FLEX 19, UR alpha-hydrox ymidazolam Not Detect ed NG/mg _crea t Not Available [facility] ([facility]) [address] [place], [address], 06/24/2025 09:07:44 06/20/20 25 06/24/2025 TOXAS SURE FLEX 19, UR flunitrazepa m Not Detect ed NG/mg _crea t Not Available [facility] ([facility]) [address] [place], [address], 06/24/2025 09:07:44 06/20/20 25 06/24/2025 TOXAS SURE FLEX 19, UR desmethylflu nitrazepam Not Detect ed NG/mg _crea t Not Available [facility] ([facility]) [address] [place], [address], 06/24/2025 09:07:44 06/20/20 25 06/24/2025 TOXAS SURE FLEX 19, UR cocaine metabolite ia Negati ve NG/mL cutoff :150 Not Available [facility] ([facility]) [address] [place], [address], 06/24/2025 09:07:44 06/20/20 25 06/24/2025 TOXAS SURE FLEX 19, UR ethanol biomarkers ia Negati ve NG/mL cutoff :500 Not Available [facility] ([facility]) [address] [place], [address], 06/24/2025 09:07:44 06/20/20 25 06/24/2025 TOXAS SURE FLEX 19, UR cannabinoids ia Negati ve NG/mL cutoff :20 Not Available [facility] ([facility]) [address] [place], [address], 06/24/2025 09:07:44 06/20/20 25 06/24/2025 TOXAS SURE FLEX 19, UR 6-acetylmorp césar ia Negati ve NG/mL cutoff :10 Not Available [facility] ([facility]) [address] [place], [address], 06/24/2025 09:07:44 06/20/20 25 06/24/2025 TOXAS SURE FLEX 19, UR opiate class ia Negati ve NG/mL cutoff :100 Not Available [facility] ([facility]) [address] [place], [address], 06/24/2025 09:07:44 06/20/20 25 06/24/2025 TOXAS SURE FLEX 19, UR oxycodone class ia Negati ve NG/mL cutoff :100 Not Available [facility] ([facility]) [address] [place], [address], 06/24/2025 09:07:44 06/20/20 25 06/24/2025 TOXAS SURE FLEX 19, UR methadone ia Negati ve NG/mL cutoff :100 Not Available [facility] ([facility]) [address] [place], [address], 06/24/2025 09:07:44 06/20/20 25 06/24/2025 TOXAS SURE FLEX 19, UR methadone mtb ia Negati ve NG/mL cutoff :100 Not Available [facility] ([facility]) [address] [place], [address], 06/24/2025 09:07:44 06/20/20 25 06/24/2025 TOXAS SURE FLEX 19, UR buprenorphin e ia Negati ve NG/mL cutoff :5.0 Not Available [facility] ([facility]) [address] [place], [address], 06/24/2025 09:07:44 06/20/20 25 06/24/2025 TOXAS SURE FLEX 19, UR fentanyl ia Negati ve NG/mL cutoff :2.0 Not Available [facility] ([facility]) [address] [place], [address], 06/24/2025 09:07:44 06/20/20 25 06/24/2025 TOXAS SURE FLEX 19, UR tapentadol ia Negati ve NG/mL cutoff :200 Not Available [facility] ([facility]) [address] [place], [address], 06/24/2025 09:07:44 06/20/20 25 06/24/2025 TOXAS SURE FLEX 19, UR propoxyphene ia Negati ve NG/mL cutoff :300 Not Available [facility] ([facility]) [address] [place], [address], 06/24/2025 09:07:44 06/20/20 25 06/24/2025 TOXAS SURE FLEX 19, UR tramadol ia Negati ve NG/mL cutoff :200 Not Available [facility] ([facility]) [address] [place], [address], 06/24/2025 09:07:44 06/20/20 25 06/24/2025 TOXAS SURE FLEX 19, UR methylphenid ate ia Negati ve NG/mL cutoff :100 Not Available [facility] ([facility]) [address] [place], [address], 06/24/2025 09:07:44 06/20/20 25 06/24/2025 TOXAS SURE FLEX 19, UR barbiturates ia Negati ve NG/mL cutoff :200 Not Available [facility] ([facility]) [address] [place], [address], 06/24/2025 09:07:44 06/20/20 25 06/24/2025 TOXAS SURE FLEX 19, UR phencyclidin e ia Negati ve NG/mL cutoff :25 Not Available [facility] ([facility]) [address] [place], [address], 06/24/2025 09:07:44 06/20/20 25 06/24/2025 TOXAS SURE FLEX 19, UR gabapentin ia Negati ve ug/mL cutoff :1.0 Not Available [facility] ([facility]) [address] [place], [address], 06/24/2025 09:07:44 06/20/20 25 06/24/2025 TOXAS SURE FLEX 19, UR anticonvulsa nts Negati ve Not Available [facility] ([facility]) [address] [place], [address], 06/24/2025 09:07:44 06/20/20 25 06/24/2025 TOXAS SURE FLEX 19, UR pregabalin Not Detect ed Not Available [facility] ([facility]) [address] [place], [address], 06/24/2025 09:07:44 06/20/20 25 06/24/2025 TOXAS SURE FLEX 19, UR carisoprodol ia Negati ve NG/mL cutoff :100 Not Available [facility] ([facility]) [address] [place], [address], 06/24/2025 09:07:44 06/20/20 25 06/21/2025 CBC WITH DIFFE RENTI AL/PL ATELE T WBC 15.8 x10e3 /uL 3.4-10 .8 above high normal Not Available [facility] ([facility]) [address] [place], [address], 06/24/2025 09:07:45 06/20/20 25 06/21/2025 CBC WITH DIFFE RENTI AL/PL ATELE T RBC 4.90 x10e6 /uL 3.77-5 .28 normal Not Available [facility] ([facility]) [address] [place], [address], 06/24/2025 09:07:45 06/20/2006/21/2025 CBC WITH DIFFE RENTI AL/PL ATELE T hemoglobin 13.0 g/dL 11.1-1 5.9 normal Not Available [facility] ([facility]) [address] [place], [address], 06/24/2025 09:07:45 06/20/2006/21/2025 CBC WITH DIFFE RENTI AL/PL ATELE T hematocrit 41.5 % 34.0-4 6.6 normal Not Available [facility] ([facility]) [address] [facility], [place], [address], 06/24/2025 09:07:45 06/20/2006/21/2025 CBC WITH DIFFE RENTI AL/PL ATELE T MCV 85 fL 79-97 normal Not Available [facility] ([facility]) [address] [place], [address], 06/24/2025 09:07:45 06/20/2006/21/2025 CBC WITH DIFFE RENTI AL/PL ATELE T MCH 26.5 pg 26.6-3 3.0 below low normal Not Available [facility] ([facility]) [address] [place], [address], 06/24/2025 09:07:45 06/20/2006/21/2025 CBC WITH DIFFE RENTI AL/PL ATELE T MCHC 31.3 g/dL 31.5-3 5.7 below low normal Not Available [facility] ([facility]) [address] [place], [address], 06/24/2025 09:07:45 06/20/20 25 06/21/2025 CBC WITH DIFFE RENTI AL/PL ATELE T RDW 15.7 % 11.7-1 5.4 above high normal Not Available [facility] ([facility]) [address] [facility], [place], [address], 06/24/2025 09:07:45 06/20/20 25 06/21/2025 CBC WITH DIFFE RENTI AL/PL ATELE T platelets 324 x10e3 /uL 150-45 0 normal Not Available [facility] ([facility]) [address] [facility], [place], [address], 06/24/2025 09:07:45 06/20/20 25 06/21/2025 CBC WITH DIFFE RENTI AL/PL ATELE T neutrophils 77 % not estab. normal Not Available [facility] ([facility]) [address] [facility], [place], [address], 06/24/2025 09:07:45 06/20/20 25 06/21/2025 CBC WITH DIFFE RENTI AL/PL ATELE T lymphs 17 % not estab. normal Not Available [facility] ([facility]) [address] [facility], [place], [address], 06/24/2025 09:07:45 06/20/20 25 06/21/2025 CBC WITH DIFFE RENTI AL/PL ATELE T monocytes 6 % not estab. normal Not Available [facility] ([facility]) [address] [facility], [place], [address], 06/24/2025 09:07:45 06/20/20 25 06/21/2025 CBC WITH DIFFE RENTI AL/PL ATELE T eos 0 % not estab. normal Not Available [facility] ([facility]) [address] [facility], [place], [address], 06/24/2025 09:07:45 06/20/20 25 06/21/2025 CBC WITH DIFFE RENTI AL/PL ATELE T basos 0 % not estab. normal Not Available [facility] ([facility]) [address] [facility], [place], [address], 06/24/2025 09:07:45 06/20/20 25 06/21/2025 CBC WITH DIFFE RENTI AL/PL ATELE T immature cells SYSTEM SAFETY MANAGER Not Available [facility] ([facility]) [address] [place], [address], 06/24/2025 09:07:45 06/20/20 25 06/21/2025 CBC WITH DIFFE RENTI AL/PL ATELE T neutrophils (absolute) 12.1 x10e3 /uL 1.4-7. 0 above high normal Not Available [facility] ([facility]) [address] [place], [address], 06/24/2025 09:07:45 06/20/20 25 06/21/2025 CBC WITH DIFFE RENTI AL/PL ATELE T lymphs (absolute) 2.6 x10e3 /uL 0.7-3. 1 normal Not Available [facility] ([facility]) [address] [place], [address], 06/24/2025 09:07:45 06/20/20 25 06/21/2025 CBC WITH DIFFE RENTI AL/PL ATELE T monocytes(ab solute) 0.9 x10e3 /uL 0.1-0. 9 normal Not Available [facility] ([facility]) [address] [place], [address], 06/24/2025 09:07:45 06/20/20 25 06/21/2025 CBC WITH DIFFE RENTI AL/PL ATELE T eos (absolute) 0.1 x10e3 /uL 0.0-0. 4 normal Not Available [facility] ([facility]) [address] [place], [address], 06/24/2025 09:07:45 06/20/20 25 06/21/2025 CBC WITH DIFFE RENTI AL/PL ATELE T baso (absolute) 0.1 x10e3 /uL 0.0-0. 2 normal Not Available [facility] ([facility]) [address] [facility], [place], [address], 06/24/2025 09:07:45 06/20/20 25 06/21/2025 CBC WITH DIFFE RENTI AL/PL ATELE T immature granulocytes 0 % not estab. Not Available [facility] ([facility]) [address] [facility], [place], [address], 06/24/2025 09:07:45 06/20/20 25 06/21/2025 CBC WITH DIFFE RENTI AL/PL ATELE T immature grans (abs) 0.0 x10e3 /uL 0.0-0. 1 Not Available [facility] ([facility]) [address] [facility], [place], [address], 06/24/2025 09:07:45 06/20/20 25 06/21/2025 CBC WITH DIFFE RENTI AL/PL ATELE T NRBC SYSTEM SAFETY MANAGER Not Available [facility] ([facility]) [address] [facility], [place], [address], 06/24/2025 09:07:45 06/20/2006/21/2025 CBC WITH DIFFE RENTI AL/PL ATELE T hematology comments: SYSTEM SAFETY MANAGER Not Available [facility] ([facility]) [address] [facility], [place], [address], 06/24/2025 09:07:45 06/20/2006/21/[address] PROBL EM request problem TNP Test not perfo rmed. No serum gel recei rush. TEST: 90373 0 Comp. Metab olic Panel (14) 12927 6 Lipid Panel 37118 9 TSH Not Available [facility] ([facility]) [address] [facility], [place], [address], 06/24/2025 09:07:48 06/20/20 25 06/20/2025 HbA1c (hemo globi n A1c), blood HbA1c 6.6 % Not Available [facility] [address] [facility], [place], [place], [id number], 06/20/2025 16:56:45 06/20/20 25 06/20/2025 micro album in/cr eatin ine, mass ratio , urine Microalbumin 30 mg/L Not Available [facility] [address] [place] [address], [place], [address], 06/20/2025 16:56:52 06/20/20 25 06/20/2025 micro album in/cr eatin ine, mass ratio , urine Creatinine 300 mg/dL Not Available [facility] [address] [facility], [place], [address], 06/20/2025 16:56:52 06/20/20 25 06/20/2025 micro album in/cr eatin ine, mass ratio , urine Ratio <30 mg/g Not Available [facility] [address] [place] [address], [place], [address], 06/20/2025 16:56:52 08/23/20 25 08/24/2025 CBC WITH DIFFE RENTI AL/PL ATELE T WBC 12.5 x10e3 /uL 3.4-10 .8 above high normal Not Available [facility] ([facility]) [address] [facility], [place], [address], 08/24/2025 09:07:58 08/23/2008/24/2025 CBC WITH DIFFE RENTI AL/PL ATELE T RBC 5.27 x10e6 /uL 3.77-5 .28 normal Not Available [facility] ([facility]) [address] [facility], [place], [address], 08/24/2025 09:07:58 08/23/20 25 08/24/2025 CBC WITH DIFFE RENTI AL/PL ATELE T hemoglobin 13.7 g/dL 11.1-1 5.9 normal Not Available [facility] ([facility]) [address] [facility], [place], [address], 08/24/2025 09:07:58 08/23/2008/24/2025 CBC WITH DIFFE RENTI AL/PL ATELE T hematocrit 43.8 % 34.0-4 6.6 normal Not Available [facility] ([facility]) [address] [facility], [place], [address], 08/24/2025 09:07:58 08/23/2008/24/2025 CBC WITH DIFFE RENTI AL/PL ATELE T MCV 83 fL 79-97 normal Not Available [facility] ([facility]) [address] [facility], [place], [address], 08/24/2025 09:07:58 08/23/2008/24/2025 CBC WITH DIFFE RENTI AL/PL ATELE T MCH 26.0 pg 26.6-3 3.0 below low normal Not Available [facility] ([facility]) [address] [place], [address], 08/24/2025 09:07:58 08/23/2008/24/2025 CBC WITH DIFFE RENTI AL/PL ATELE T MCHC 31.3 g/dL 31.5-3 5.7 below low normal Not Available [facility] ([facility]) [address] [place], [address], 08/24/2025 09:07:58 08/23/2008/24/2025 CBC WITH DIFFE RENTI AL/PL ATELE T RDW 14.4 % 11.7-1 5.4 Not Available [facility] ([facility]) [address] [place], [address], 08/24/2025 09:07:58 08/23/2008/24/2025 CBC WITH DIFFE RENTI AL/PL ATELE T platelets 265 x10e3 /uL 150-45 0 normal Not Available [facility] ([facility]) [address] [facility], [place], [address], 08/24/2025 09:07:58 08/23/2008/24/2025 CBC WITH DIFFE RENTI AL/PL ATELE T neutrophils 78 % not estab. normal Not Available [facility] ([facility]) [address] [facility], [place], [address], 08/24/2025 09:07:58 08/23/2008/24/2025 CBC WITH DIFFE RENTI AL/PL ATELE T lymphs 15 % not estab. normal Not Available [facility] ([facility]) [address] [facility], [place], [address], 08/24/2025 09:07:58 08/23/2008/24/2025 CBC WITH DIFFE RENTI AL/PL ATELE T monocytes 5 % not estab. normal Not Available [facility] ([facility]) [address] [facility], [place], [address], 08/24/2025 09:07:58 08/23/2008/24/2025 CBC WITH DIFFE RENTI AL/PL ATELE T eos 1 % not estab. normal Not Available [facility] ([facility]) [address] [facility], [place], [address], 08/24/2025 09:07:58 08/23/2008/24/2025 CBC WITH DIFFE RENTI AL/PL ATELE T basos 0 % not estab. normal Not Available [facility] ([facility]) [address] [facility], [place], [address], 08/24/2025 09:07:58 08/23/2008/24/2025 CBC WITH DIFFE RENTI AL/PL ATELE T immature cells SYSTEM SAFETY MANAGER Not Available [facility] ([facility]) [address] [facility], [place], [address], 08/24/2025 09:07:58 08/23/20 25 08/24/2025 CBC WITH DIFFE RENTI AL/PL ATELE T neutrophils (absolute) 9.8 x10e3 /uL 1.4-7. 0 above high normal Not Available [facility] ([facility]) [address] [place], [address], 08/24/2025 09:07:58 08/23/20 25 08/24/2025 CBC WITH DIFFE RENTI AL/PL ATELE T lymphs (absolute) 1.9 x10e3 /uL 0.7-3. 1 normal Not Available [facility] ([facility]) [address] [place], [address], 08/24/2025 09:07:58 08/23/20 25 08/24/2025 CBC WITH DIFFE RENTI AL/PL ATELE T monocytes(ab solute) 0.7 x10e3 /uL 0.1-0. 9 normal Not Available [facility] ([facility]) [address] [place], [address], 08/24/2025 09:07:58 08/23/2008/24/2025 CBC WITH DIFFE RENTI AL/PL ATELE T eos (absolute) 0.1 x10e3 /uL 0.0-0. 4 normal Not Available [facility] ([facility]) [address] [place], [address], 08/24/2025 09:07:58 08/23/20 25 08/24/2025 CBC WITH DIFFE RENTI AL/PL ATELE T baso (absolute) 0.0 x10e3 /uL 0.0-0. 2 normal Not Available [facility] ([facility]) [address] [place], [address], 08/24/2025 09:07:58 08/23/20 25 08/24/2025 CBC WITH DIFFE RENTI AL/PL ATELE T immature granulocytes 1 % not estab. Not Available [facility] ([facility]) [address] [facility], [place], [address], 08/24/2025 09:07:58 08/23/2008/24/2025 CBC WITH DIFFE RENTI AL/PL ATELE T immature grans (abs) 0.1 x10e3 /uL 0.0-0. 1 Not Available [facility] ([facility]) [address] [facility], [place], [address], 08/24/2025 09:07:58 08/23/2008/24/2025 CBC WITH DIFFE RENTI AL/PL ATELE T NRBC SYSTEM SAFETY MANAGER Not Available [facility] ([facility]) [address] [facility], [place], [address], 08/24/2025 09:07:58 08/23/2008/24/2025 CBC WITH DIFFE RENTI AL/PL ATELE T hematology comments: SYSTEM SAFETY MANAGER Not Available [facility] ([facility]) [address] [facility], [place], [address], 08/24/2025 09:07:58 08/23/2008/24/2025 COMP. METAB OLIC PANEL (14) glucose 120 mg/dL 70-99 above high normal Not Available [facility] ([facility]) [address] [facility], [place], [address], 08/24/2025 09:07:59 08/23/2008/24/2025 COMP. METAB OLIC PANEL (14) BUN 12 mg/dL 8-27 normal Not Available [facility] ([facility]) [address] [facility], [place], [address], 08/24/2025 09:07:59 08/23/2008/24/2025 COMP. METAB OLIC PANEL (14) creatinine 1.11 mg/dL 0.57-1 .00 above high normal Not Available [facility] ([facility]) [address] [facility], [place], [address], 08/24/2025 09:07:59 08/23/20 25 08/24/2025 COMP. METAB OLIC PANEL (14) eGFR 56 mL/mi n/1.7 3 >59 below low normal Not Available [facility] ([facility]) [address] [facility], [place], [address], 08/24/2025 09:07:59 08/23/20 25 08/24/2025 COMP. METAB OLIC PANEL (14) BUN/creatini ne ratio 11 12-28 below low normal Not Available [facility] ([facility]) [address] [facility], [place], [address], 08/24/2025 09:07:59 08/23/2008/24/2025 COMP. METAB OLIC PANEL (14) sodium 140 mmol/ L 134-14 4 normal Not Available [facility] ([facility]) [address] [facility], [place], [address], 08/24/2025 09:07:59 08/23/20 25 08/24/2025 COMP. METAB OLIC PANEL (14) potassium 3.7 mmol/ L 3.5-5. 2 normal Not Available [facility] ([facility]) [address] [facility], [place], [address], 08/24/2025 09:07:59 08/23/2008/24/2025 COMP. METAB OLIC PANEL (14) chloride 100 mmol/ L 96-106 normal Not Available [facility] ([facility]) [address] [facility], [place], [address], 08/24/2025 09:07:59 08/23/2008/24/2025 COMP. METAB OLIC PANEL (14) carbon dioxide, total 23 mmol/ L 20-29 normal Not Available [facility] ([facility]) [address] [facility], [place], [address], 08/24/2025 09:07:59 08/23/2008/24/2025 COMP. METAB OLIC PANEL (14) calcium 9.8 mg/dL 8.7-10 .3 normal Not Available [facility] ([facility]) [address] [place], [address], 08/24/2025 09:07:59 08/23/20 25 08/24/2025 COMP. METAB OLIC PANEL (14) protein, total 7.3 g/dL 6.0-8. 5 normal Not Available [facility] ([facility]) [address], [place], [address], 08/24/2025 09:07:59 08/23/2008/24/2025 COMP. METAB OLIC PANEL (14) albumin 4.2 g/dL 3.9-4. 9 normal Not Available [facility] ([facility]) [address] [place], [address], 08/24/2025 09:07:59 08/23/2008/24/2025 COMP. METAB OLIC PANEL (14) globulin, total 3.1 g/dL 1.5-4. 5 Not Available [facility] ([facility]) [address] [facility], [place], [address], 08/24/2025 09:07:59 08/23/2008/24/2025 COMP. METAB OLIC PANEL (14) bilirubin, total 0.4 mg/dL 0.0-1. 2 normal Not Available [facility] ([facility]) [address] [place], [address], 08/24/2025 09:07:59 08/23/2008/24/2025 COMP. METAB OLIC PANEL (14) alkaline phosphatase 89 IU/L 49-135 normal Not Available [facility] ([facility]) [address] [facility], [place], [address], 08/24/2025 09:07:59 08/23/2008/24/2025 COMP. METAB OLIC PANEL (14) AST (SGOT) 18 IU/L 0-40 normal Not Available [facility] ([facility]) [address] [place], [address], 08/24/2025 09:07:59 08/23/20 25 08/24/2025 COMP. METAB OLIC PANEL (14) ALT (SGPT) 10 IU/L 0-32 normal Not Available [facility] ([facility]) [address] [place], [address], 08/24/2025 09:07:59 08/23/20 25 08/24/2025 LIPID PANEL cholesterol, total 129 mg/dL 100-19 9 normal Not Available [facility] ([facility]) [address] [place], [address], 08/24/2025 09:07:59 08/23/20 25 08/24/2025 LIPID PANEL triglyceride s 109 mg/dL 0-149 normal Not Available [facility] ([facility]) [address] [place], [address], 08/24/2025 09:07:59 08/23/20 25 08/24/2025 LIPID PANEL HDL cholesterol 48 mg/dL >39 normal Not Available [facility] ([facility]) [address] [place], [address], 08/24/2025 09:07:59 08/23/20 25 08/24/2025 LIPID PANEL VLDL cholesterol agueda 20 mg/dL 5-40 Not Available [facility] ([facility]) [address] [place], [address], 08/24/2025 09:07:59 08/23/20 25 08/24/2025 LIPID PANEL LDL chol calc ([facility]) 61 mg/dL 0-99 Not Available [facility] ([facility]) [address] [place], [address], 08/24/2025 09:07:59 08/23/2008/24/2025 LIPID PANEL LDL calc comment: SYSTEM SAFETY MANAGER Not Available [facility] ([facility]) [address] [facility], [place], [address], 08/24/2025 09:07:59 08/23/2008/24/2025 HEMOG LOBIN A1C hemoglobin A1C 6.5 % 4.8-5. 6 above high normal Predi abete s: 5.7 - 6.4 Diabe radha: >6.4 Glyce mary contr ol for adult s with diabe radha: <7.0 Not Available [facility] ([facility]) [address] [facility], [place], [address], 08/24/2025 09:08:00 08/23/2008/24/2025 TSH TSH 0.321 uIU/m L 0.450- 4.500 below low normal Not Available [facility] ([facility]) [address] [facility], [place], [address], 08/24/2025 09:08:00 08/23/2008/24/2025 VITAM IN D, 25-HY DROXY vitamin D, [...] 1. IOM (Inst itute of Medic ine). 2009. Dieta ry refer ence intak es for calci um and D. Brad webster DC: [facility] . 2. Jose alexander MF, Binskye ey [place], Tatiana off-F errar i KONG, et al. Evalu ation , treat ment, and preve ntion of vitam in D defic iency : an Endoc rine Socie ty clini agueda pract ice guide line. JCEM. 2010; 96(0) :1911 -30. Not Available [facility] ([facility]) [address] [place], [address], 08/24/2025 09:08:01 10/11/20 25 10/12/2025 CBC WITH DIFFE RENTI AL/PL ATELE T WBC 14.1 x10e3 /uL 3.4-10 .8 above high normal Not Available [facility] ([facility]) [address] [facility], [place], [address], 10/12/2025 04:07:53 10/11/20 25 10/12/2025 CBC WITH DIFFE RENTI AL/PL ATELE T RBC 4.56 x10e6 /uL 3.77-5 .28 normal Not Available [facility] ([facility]) [address] [facility], [place], [address], 10/12/2025 04:07:53 10/11/20 25 10/12/2025 CBC WITH DIFFE RENTI AL/PL ATELE T hemoglobin 11.7 g/dL 11.1-1 5.9 normal Not Available [facility] ([facility]) [address] [place], [address], 10/12/2025 04:07:53 10/11/20 25 10/12/2025 CBC WITH DIFFE RENTI AL/PL ATELE T hematocrit 37.1 % 34.0-4 6.6 normal Not Available [facility] ([facility]) [address] [place], [address], 10/12/2025 04:07:53 10/11/20 25 10/12/2025 CBC WITH DIFFE RENTI AL/PL ATELE T MCV 81 fL 79-97 normal Not Available [facility] ([facility]) [address] [place], [address], 10/12/2025 04:07:53 10/11/20 25 10/12/2025 CBC WITH DIFFE RENTI AL/PL ATELE T MCH 25.7 pg 26.6-3 3.0 below low normal Not Available [facility] ([facility]) [address] [facility], [place], [address], 10/12/2025 04:07:53 10/11/20 25 10/12/2025 CBC WITH DIFFE RENTI AL/PL ATELE T MCHC 31.5 g/dL 31.5-3 5.7 normal Not Available [facility] ([facility]) [address] [place], [address], 10/12/2025 04:07:53 10/11/20 25 10/12/2025 CBC WITH DIFFE RENTI AL/PL ATELE T RDW 16.6 % 11.7-1 5.4 above high normal Not Available [facility] ([facility]) [address] [place], [address], 10/12/2025 04:07:53 10/11/20 25 10/12/2025 CBC WITH DIFFE RENTI AL/PL ATELE T platelets 398 x10e3 /uL 150-45 0 normal Not Available [facility] ([facility]) [address] [place], [address], 10/12/2025 04:07:53 10/11/20 25 10/12/2025 CBC WITH DIFFE RENTI AL/PL ATELE T neutrophils 82 % not estab. normal Not Available [facility] ([facility]) [address] [place], [address], 10/12/2025 04:07:53 10/11/20 25 10/12/2025 CBC WITH DIFFE RENTI AL/PL ATELE T lymphs 10 % not estab. normal Not Available [facility] ([facility]) [address] [place], [address], 10/12/2025 04:07:53 10/11/20 25 10/12/2025 CBC WITH DIFFE RENTI AL/PL ATELE T monocytes 6 % not estab. normal Not Available [facility] ([facility]) [address] [facility], [place], [address], 10/12/2025 04:07:53 10/11/20 25 10/12/2025 CBC WITH DIFFE RENTI AL/PL ATELE T eos 1 % not estab. normal Not Available [facility] ([facility]) [address] [facility], [place], [address], 10/12/2025 04:07:53 10/11/20 25 10/12/2025 CBC WITH DIFFE RENTI AL/PL ATELE T basos 0 % not estab. normal Not Available [facility] ([facility]) [address] [facility], [place], [address], 10/12/2025 04:07:53 10/11/20 25 10/12/2025 CBC WITH DIFFE RENTI AL/PL ATELE T immature cells SYSTEM SAFETY MANAGER Not Available [facility] ([facility]) [address] [facility], [place], [address], 10/12/2025 04:07:53 10/11/20 25 10/12/2025 CBC WITH DIFFE RENTI AL/PL ATELE T neutrophils (absolute) 11.6 x10e3 /uL 1.4-7. 0 above high normal Not Available [facility] ([facility]) [address] [facility], [place], [address], 10/12/2025 04:07:53 10/11/20 25 10/12/2025 CBC WITH DIFFE RENTI AL/PL ATELE T lymphs (absolute) 1.4 x10e3 /uL 0.7-3. 1 normal Not Available [facility] ([facility]) [address] [facility], [place], [address], 10/12/2025 04:07:53 10/11/20 25 10/12/2025 CBC WITH DIFFE RENTI AL/PL ATELE T monocytes(ab solute) 0.8 x10e3 /uL 0.1-0. 9 normal Not Available [facility] ([facility]) [address] [facility], [place], [address], 10/12/2025 04:07:53 10/11/20 25 10/12/2025 CBC WITH DIFFE RENTI AL/PL ATELE T eos (absolute) 0.2 x10e3 /uL 0.0-0. 4 normal Not Available [facility] ([facility]) [address] [facility], [place], [address], 10/12/2025 04:07:53 10/11/20 25 10/12/2025 CBC WITH DIFFE RENTI AL/PL ATELE T baso (absolute) 0.0 x10e3 /uL 0.0-0. 2 normal Not Available [facility] ([facility]) [address] [facility], [place], [address], 10/12/2025 04:07:53 10/11/20 25 10/12/2025 CBC WITH DIFFE RENTI AL/PL ATELE T immature granulocytes 1 % not estab. Not Available [facility] ([facility]) [address] [facility], [place], [address], 10/12/2025 04:07:53 10/11/20 25 10/12/2025 CBC WITH DIFFE RENTI AL/PL ATELE T immature grans (abs) 0.1 x10e3 /uL 0.0-0. 1 Not Available [facility] ([facility]) [address] [facility], [place], [address], 10/12/2025 04:07:53 10/11/20 25 10/12/2025 CBC WITH DIFFE RENTI AL/PL ATELE T NRBC SYSTEM SAFETY MANAGER Not Available [facility] ([facility]) [address] [facility], [place], [address], 10/12/2025 04:07:53 10/11/20 25 10/12/2025 CBC WITH DIFFE RENTI AL/PL ATELE T hematology comments: SYSTEM SAFETY MANAGER Not Available [facility] ([facility]) [address] [facility], [place], [address], 10/12/2025 04:07:53 10/11/20 25 10/12/2025 COMP. METAB OLIC PANEL (14) glucose 124 mg/dL 70-99 above high normal Not Available [facility] ([facility]) [address] [facility], [place], [address], 10/12/2025 04:07:54 10/11/20 25 10/12/2025 COMP. METAB OLIC PANEL (14) BUN 12 mg/dL 8-27 normal Not Available [facility] ([facility]) [address] [facility], [place], [address], 10/12/2025 04:07:54 10/11/20 25 10/12/2025 COMP. METAB OLIC PANEL (14) creatinine 1.18 mg/dL 0.57-1 .00 above high normal Not Available [facility] ([facility]) [address] [facility], [place], [address], 10/12/2025 04:07:54 10/11/20 25 10/12/2025 COMP. METAB OLIC PANEL (14) eGFR 52 mL/mi n/1.7 3 >59 below low normal Not Available [facility] ([facility]) [address] [facility], [place], [address], 10/12/2025 04:07:54 10/11/20 25 10/12/2025 COMP. METAB OLIC PANEL (14) BUN/creatini ne ratio 10 12-28 below low normal Not Available [facility] ([facility]) [address] [facility], [place], [address], 10/12/2025 04:07:54 10/11/20 25 10/12/2025 COMP. METAB OLIC PANEL (14) sodium 144 mmol/ L 134-14 4 normal Not Available [facility] ([facility]) [address] [place], [address], 10/12/2025 04:07:54 10/11/20 25 10/12/2025 COMP. METAB OLIC PANEL (14) potassium 3.2 mmol/ L 3.5-5. 2 below low normal Not Available [facility] ([facility]) [address] [place], [address], 10/12/2025 04:07:54 10/11/20 25 10/12/2025 COMP. METAB OLIC PANEL (14) chloride 103 mmol/ L 96-106 normal Not Available [facility] ([facility]) [address] [place], [address], 10/12/2025 04:07:54 10/11/20 25 10/12/2025 COMP. METAB OLIC PANEL (14) carbon dioxide, total 20 mmol/ L 20-29 normal Not Available [facility] ([facility]) [address] [place], [address], 10/12/2025 04:07:54 10/11/20 25 10/12/2025 COMP. METAB OLIC PANEL (14) calcium 9.3 mg/dL 8.7-10 .3 normal Not Available [facility] ([facility]) [address] [place], [address], 10/12/2025 04:07:54 10/11/20 25 10/12/2025 COMP. METAB OLIC PANEL (14) protein, total 6.8 g/dL 6.0-8. 5 normal Not Available [facility] ([facility]) [address] [place], [address], 10/12/2025 04:07:54 10/11/20 25 10/12/2025 COMP. METAB OLIC PANEL (14) albumin 3.7 g/dL 3.9-4. 9 below low normal Not Available [facility] ([facility]) [address] [place], [address], 10/12/2025 04:07:54 10/11/20 25 10/12/2025 COMP. METAB OLIC PANEL (14) globulin, total 3.1 g/dL 1.5-4. 5 Not Available [facility] ([facility]) [address] [place], [address], 10/12/2025 04:07:54 10/11/20 25 10/12/2025 COMP. METAB OLIC PANEL (14) bilirubin, total 0.4 mg/dL 0.0-1. 2 normal Not Available [facility] ([facility]) [address] [place], [address], 10/12/2025 04:07:54 10/11/20 25 10/12/2025 COMP. METAB OLIC PANEL (14) alkaline phosphatase 85 IU/L 49-135 normal Not Available [facility] ([facility]) [address] [place], [address], 10/12/2025 04:07:54 10/11/20 25 10/12/2025 COMP. METAB OLIC PANEL (14) AST (SGOT) 25 IU/L 0-40 normal Not Available [facility] ([facility]) [address] [place], [address], 10/12/2025 04:07:54 10/11/20 25 10/12/2025 COMP. METAB OLIC PANEL (14) ALT (SGPT) 14 IU/L 0-32 normal Not Available [facility] ([facility]) [address] [place], [address], 10/12/2025 04:07:54 10/11/20 25 10/12/2025 HEMOG LOBIN A1C hemoglobin A1C 6.4 % 4.8-5. 6 above high normal Predi abete s: 5.7 - 6.4 Diabe radha: >6.4 Glyce mary contr ol for adult s with diabe radha: <7.0 Not Available [facility] ([facility]) [address], [place], [address], 10/12/2025 04:07:54 04/11/20 elect rocar diogr am No observ ation record ed. [email or web address] Not Available 2024 17:50:49 09/02/2009/02/2025 CT, abdom en + pelvi s, w/wo contr ast No observ ation record ed. [email or web address] [facility] [address], [place], [address], 09/03/2025 09:14:14 Result Notes None recorded. Problems Name Problem SNOMED Code Status Onset Date Resolution Date Notes Provider Name and Address Organization Details Recorded Time Chronic neck pain 357631217639 7 Active 2023 TONY Tim [address] [place] [address], [address], [employer] 10:34:35 Cervical spondylos is 652640117 Active 2023 TONY Tim [address] [place] [address], [address] 8, [employer] 10:34:48 Hypothyro idism 16798302 Active 2023 TONY Tim [address] [place] [address], 14[address] 8, [employer] 4 10:35:00 Migraine 47470288 Active 2023 TONY Tim [address] [place] [address], [address] 8, [employer] 5 13:15:35 Hyperlipi demia 83331864 Active 2023 TONY Tim [address] [place] [address], [address] 8, [employer] 4 10:35:31 Depressiv e disorder 18344789 Active 2023 TONY Tim [address] [place] [address], [address] 8, [employer] 4 10:36:00 Influenza A virus present 291328949597 Completed 202301/10/2025 TONY Tim [address] [place] [address], [address] 8, [employer] 5 13:25:22 Chronic kidney disease 388266234 Active 2023 TONY Tim [address] [place] [address], 38597-611 8, [place] [employer] 4 13:08:43 Acute right otitis media 320760584 Completed 202301/10/2025 TONY Tim [address] [place] [address], 89100-962 8, [place] [employer] 5 13:25:10 Generaliz ed anxiety disorder 09299013 Active 2023 TONY Tim [address] [place] [address], 81875-670 8, [employer] 4 13:08:53 Vitamin D deficienc y 64086266 Active 2023 TONY Tim [address] [place] [address], 17870-940 8, [employer] 4 13:08:48 Newly diagnosed diabetes 151850249 Active 2023 TONY Tim [address] [place] [address], 46839-554 8, [place] [employer] 4 17:00:53 Type 2 diabetes mellitus without complicat ion 444968724 Active 2023 TONY Tim [address] [place] [address], 65092-368 8, [employer] 4 17:04:31 Diabetes mellitus 61778964 Active 2023 TONY Tim [address] [place] [address], 81822-430 8, [employer] 13:25:17 Fracture at wrist and/or hand level 483382594 Completed 202308/23/2025 TONY Tim [address] [place] [address], 83019-108 8, [employer] 14:50:11 Fracture of shoulder [id number] 67975 Completed 202308/23/2025 TONY Tim [address] [place] [address], 32888-999 8, [employer] 14:50:07 Osteopeni a 122656990 Active 2024 TONY Tim [address] [place] [address], 62188-980 8, [employer] 14:58:45 Tachycard ia 3411438 Active 2024 TONY Tim [address] [place] [address], 20855-869 8, [employer] 15:28:41 Primary insomnia 5724611 Active 2024 TONY Tim [address] [place] [address], 61453-553 8, [employer] 17:14:39 Grief finding 043001296 Active 2024 TONY Tim [address] [place] [address], 14232-810 8, [employer] 14:51:12 Loss of appetite 33170710 Active 2024 TONY Tim [address] [place] [address], 84693-785 8, [employer] 14:54:01 Disorder of kidney due to diabetes mellitus 047586860 Active 2024 TONY Tim [address] [place] [address], 37446-485 8, [employer] 12:20:03 Unintenti onal weight loss 605813420 Active 2024 TON[address] Tim [address] [place] [address], [phone] 8, [employer] 09:37:58 Peptic ulcer 92972454 Active 2024 TONY Tim [address] [place] [address], [address] 8, [employer] 09:38:02 Malrotati on of small intestine 7322106458 Active 2024 TONY Tim [address] [place] [address], [address]666 8, [employer] 09:38:11 Hypertrop hy of urinary bladder 616386304 Active 2024 TONY Tim [address] [place] [address], [address]32[address]982 8, [employer] 09:38:17 Hypokalem ia 34556297 Active 2024 TONY Tim [address] [place] [address], [address]758 8, [employer] 14:24:34 Weight decreased 674300099 Active 2024 TONY Tim [address] [place] [address], [address]736 8, [employer] 15:32:18 Problem Notes None recorded. Procedures Surgical History Date Name Laterality Status Provider Name and Address Organization Details Recorded Time 5 Gallbladder Surgery completed Elvia Yepez [employer] 04/23/2025 16:45:35 5 Diabetic Foot Screen completed TONY Tim [address] [place] [address], [phone], [employer] 03/07/2025 13:17:20 Caesarean Section completed [employer] 10/01/2024 10:06:43 Tubal Ligation completed [employer] 10/01/2024 10:06:43 Thyroid Surgery completed [facility] [employer] 10/01/2024 10:06:43 Imaging Results None recorded. Procedure Notes None recorded. Medical Equipment None Reported. Allergies Allergen ID Allergen Name Allergen Category Reaction Reaction Severity Criticality Documentation Date Start Date Code Code System Note Provider Name and Address Organization Details Recorded Time 80583 Product containin g penicilli n (product) medicatio n rash Not available Not available 10/01/2024 76329 8001 SNOMED Meg Vice null, [employer] 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 16:47:36 Date Recorded Body height Body mass index (BMI) Body weight Oxygen saturation Heart rate Body temperature Systolic And Diastolic Provider Name and Address Organization Details Last Updated DateTime 5 162.56 cm 32.7 kg/m2 19027.7 1 g 96 % 98 /min 98.1 [degF] 104/70 mm[Hg] [employer] 5 16:58:58 Date Recorded Body height Body mass index (BMI) Body weight Body temperature Heart rate Oxygen saturation Systolic And Diastolic Provider Name and Address Organization Details Last Updated DateTime 5 162.56 cm 29.6 kg/m2 30542.0 4 g 97.8 [degF] 104 /min 96 % 106/76 mm[Hg] [employer] 5 17:09:10 Date Recorded Body height Body mass index (BMI) Body weight Body temperature Heart rate Oxygen saturation Systolic And Diastolic Provider Name and Address Organization Details Last Updated DateTime 5 162.56 cm 26.7 kg/m2 77349.6 9 g 97.7 [degF] 118 /min 95 % 94/70 mm[Hg] [employer] 5 17:00:13 Date Recorded Body height Body mass index (BMI) Body weight Oxygen saturation Heart rate Systolic And Diastolic Provider Name and Address Organization Details Last Updated DateTime 5 162.56 cm 26.6 kg/m2 65531.8 2 g 96 % 110 /min 108/77 mm[Hg] [employer] 16:01:00 Social History Question Answer Notes LastModified by Organizat ion Details LastModified Time Tobacco Smoking Status Never Smoker Meg ingram, [employer] 10/01/2024 10:06:43 Do You Have An [...] Information not available 08/20/2025 What Type Of Machine Filler Shredder Do You Use? None Information not available [...] Or The Highest Degree You Have Received? [id number] Information not available 10/01/2024 How Many Days [...] Do You Have A Medical Power Of Bathhouse Attendant? No Information not available 10/01/2024 What Was The Date Of Your Most Recent Tobacco Screening? 10/11/2025 [email or web address] Information not available 10/11/2025 Do You Have [...] anxious, or unable to sleep at night)? [id number] Information not available 10/01/2024 Do you have [...] Stones N Blood Diseases N Hyperthyroidism N Breast Cancer N Blood Transfusion N Emergency room visit since last appointm ent. Y Hypothyroidism N Lung Disease N Dermatologic Disorders N Depression Y COPD N Developmental or Behavioral Disorders N Defects [...] N Psychiatric/Mental Health Condition N Fibromyalgia N Headaches Y Schizophrenia N [...] N Pulmonary Embolism N Tourette Syndrome N Pre-Eclampsia N Hypertension Y Chronic Ear Infections N Osteoporosis N Chicken Pox N Autism Spectrum Disorder (ASD) N Thrombophilias N Gynecological History Statement/Question Response [...] split virus, trivalent, PF 10/11/2025 completed Meg Hodge null, [employer], [employer] 10/11/2025 16:46:43 COVID-19, mRNA, LNP-S, PF, 100 mcg/0.5mL dose or 50 mcg/0.25mL dose 11/13/2020 completed Megtroy Hodge null, [employer]. 11/05/2024 08:54:28 COVID-19, mRNA, LNP-S, PF, 100 mcg/0.5mL dose or 50 mcg/0.25mL dose 12/15/2020 completed Meg Vice null, [employer] 11/05/2024 08:54:28 COVID-19, mRNA, LNP-S, PF, 100 mcg/0.5mL dose or 50 mcg/0.25mL dose 09/11/2021 completed Meg Vice null, [employer] 11/05/2024 08:54:28 Past Encounters Encounter ID Performer Location Encounter Start Date Encounter Closed Date Diagnosis/Indication Diagnosis SNOMED-CT Code Diagnosis ICD10 Code Diagnosis IMO Codes Diagnosis Note [id number] TONY Tim [address] [address] 10/01/2024 09:55:47 10/01/2024 11:01:24 Screening mammography 44672682 Z12.31 Cough 69168330 R05.9 Sore throat 719275696 J0 2.9 Influenza A virus present 1897030388 08 J09.X2 Cervical spondylosis 387 974808 M47.812 Hyperlipidemia 85751019 E78.5 Hypothyroidism 39317797 E03.9 Migraine 15317859 G43.90 9 Body mass index 40+ - severely obese 608446749 Z68.41 Acute righ t otitis media 775723467 H66.91 Depressive disorder 3548 9007 F32.A Generalize d anxiety disorder 92126854 F41.1 Adult heal th examination 519600557 Z00.00 [id number] TONY Tim [address] [address] 11/05/2024 08:36:07 11/05/2024 09:20:39 Fracture at wrist and/or hand level 201333986 S62.91XA Fracture of shoulder 886 4268558 8136373 S42.90XA Type 2 alvina betes mellitus without complication 446667637 E11.9 Hypothyroidism 32610790 E03.9 Depressive disorder 3548 9007 F32.A Improving with Pristiq [id number] TONY Tim [address] [place] [address] 12/13/2024 14:37:57 12/13/2024 14:38:24 Type 2 diabetes mellitus without complication 413570245 E11.9 Depressive disorder 3548 9007 F32.A Migraine 29532891 G43.90 9 Fracture of shoulder 843 2962850 8583617 S42.90XA Osteopenia 988529111 M85 .80 Hyperlipidemia 52931421 E78.5 Vitamin D deficiency 347 64856 E55.9 Cervical spondylosis 387 303270 M47.812 Hypothyroidism 24033976 E03.9 Generalize d anxiety disorder 82172779 F41.1 Body mass index 40+ - severely obese 900515294 Z68.41 [id number] [place] [address] 2025 12:51:10 2025 13:34:11 Depressive disorder 81246547 F32.A Type 2 alvina betes mellitus without complication 234780230 E11.9 Cervical spondylosis 387 076477 M47.812 Fracture of shoulder 019 7725866 0442612 S42.90XA [id number] TONY Tim [address] [address] 03/07/2025 12:39:07 03/07/2025 13:34:08 Type 2 diabetes mellitus 44498178 E11.9 02395585 Screening for malignant neoplasm of colon 040886438 Z12.11 942422 Migraine 36262498 G43.90 9 28245 Depressive disorder 3548 9007 F32.A [id number] TONY Tim [address] [address] 04/11/2025 17:22:34 04/11/2025 17:48:43 Tachycardia 5962057 R00.0 17888 Patient is hypotensiv e, tachycardi c, has had intermitte nt shocks in her chest and looks acutely ill and uncomforta ble - daughter agrees to transport her to ER for further evaluation [id number] TONY Tim [address] [address] 04/23/2025 16:40:23 04/23/2025 17:10:22 History of cholecystectomy 236511804 Z90.49 574021 [id number] TONY Tim [address] [address] 06/20/2025 16:50:30 06/20/2025 17:16:25 Type 2 diabetes mellitus 31355188 E11.9 38989281 Long-term current use of drug therapy 362292352 Z79.899 42934661 Dizziness 255680334 R42 53260 Cervical spondylosis 387 973990 M47.812 Primary insomnia 9293497 F51.01 34862 Type 2 alvina betes mellitus without complication 835731202 E11.9 Hyperlipidemia 12487751 E78.5 Osteopenia 958765485 M85 .80 Vitamin D deficiency 347 65830 E55.9 Diabetes mellitus 446966 09 E11.9 Hypothyroidism 70771180 E03.9 [id number] TONY Tim [address] [address] 08/20/2025 16:48:09 08/20/2025 17:23:56 Generalized anxiety disorder 86948662 F41.1 Depressive disorder 3548 9007 F32.A Hyperlipidemia 50496893 E78.5 Type 2 alvina betes mellitus without complication 753565031 E11.9 Hypothyroidism 46224490 E03.9 Vitamin D deficiency 347 76806 E55.9 Chronic ki dney disease 583325554 N18.9 Grief finding 284649126 F43.20 14068 Loss of appetite 3989311 6 R63.0 39375 [id number] TONY Tim [address] [address] 09/19/2025 16:51:30 09/19/2025 17:15:53 Unintentional weight loss 534005865 R63.4 114424 Patient has lost 35 pounds since June Peptic ulcer 72094710 K2 7.9 95934 Prilosec not helping 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 pediasure drinks to try Peptic ulcer 84398668 K2 7.9 01807 Prilosec not helping Health Concerns Section Related Observation LastModified by Organization Detai ls LastModified Time None Recorded Concern Status LastModified by Organization Details LastModified Time None Recorded Advance Directives Directive N: Payers Insurance Date Sequence Insurance Name Policy Number Policy Escamilla Covered Member ID Escamilla Member ID Guarantor Name 10/22/2025 1 [place]MEDICARE REPLACEMENT HMO) [id number] Bella Livingood [id number] Bella Livingood 10/11/2025 1 [employer] (MEDICARE REPLACEMENT/AD VANTAGE - PPO) Bella Stephenson Livingood [id number] Bella Livingood 10/23/2025 [place] [employer] - [facility] Bella M Livingood [id number] Bella Livingood Notes Date Note Type Note Provider Name and Address Organization Details Recorded Time 04/23/2025 text/html ROS as noted in the HPI Patient presents for followup. Last time she was seen here, she was transferred to ER and admitted for sepsis. Had gallbladder removed the next day. States that she is feeling much better. Mild abdominal tenderness at surgical site. TONY Tim [address] [place], [address], [employer] 04/23/2025 17:16:51 06/20/2025 text/html ROS as noted in the HPI Patient presents for followup. History of HTN, DM, HLD, Vitamin D deficiency, hypothyroidism. Doing well. TONY Tim [address] [place], [address], [employer] 06/21/2025 16:18:43 08/20/2025 text/html ROS as noted in the [facility] Patient presents for followup. History of anxiety/depression, HLD, DM, CKD, hypothyroidism, vitamin D deficiency. She lost her suddenly a few months ago. She is not eating and has lost 18 pounds. Daughter is concerned. TONY Tim [address] [place], [address], [employer], [employer]. 08/23/2025 14:54:13 09/19/2025 text/html ROS as noted in the [facility] Patient presents for followup.She is pale, listless. Has no appetite. Has lost 35 pounds since June - has lost approximately 15 pounds since her last visit. After that visit, she was admitted. 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 She was started on Prilosec but it has not helped. Appt with gastro in October. TONY Tim [address] [place], [address], [employer], [employer]. 09/24/2025 09:42:17 10/11/2025 text/html ROS as noted in the [facility] Patient presents for followup. She was admitted finally for weight loss, weakness. Diagnosed with C diff despite not having true diarrhea - treated with oral Vanc. Her weight is stable today. Still has no appetite, is not really eating much. She is trying to eat more. Has PUD as well. TONY Tim [address] [place], [address], [employer], [employer]. 10/17/2025 15:36:04 OBGyn Episode No OBEpisode recorded.
--- NOTE | 2025-10-23 21:24 | XR_ITS ---
PROCEDURE INFORMATION: Exam: XR Pelvis Exam date and time: 10/23/2025 9:46 PM Age: 60 years old Clinical indication: Injury or trauma; Fall; Additional info: Fall and AMS TECHNIQUE: Imaging protocol: Radiologic exam of the pelvis. Views: 1 or 2 view. COMPARISON: CT ABDOMEN PELVIS W CON 09/02/2025 6:22 PM FINDINGS: Bones/joints: Unremarkable. No apparent fracture. Poor visualization of the right femoral neck. Spinal degenerative changes are evident. Soft tissues: Unremarkable. IMPRESSION: 1. No apparent fracture. 2. Limited visualization of the right femoral neck by positioning. If there is tenderness in this region, dedicated hip series would be recommended.
--- NOTE | 2025-10-23 21:24 | XR_ITS ---
PROCEDURE INFORMATION: Exam: XR Chest Exam date and time: 10/23/2025 9:46 PM Age: 60 years old Clinical indication: Injury or trauma; Fall; Additional info: Fall and AMS TECHNIQUE: Imaging protocol: Radiologic exam of the chest. Views: 1 view. COMPARISON: CR XR CHEST PORTABLE 04/11/2025 7:08 PM FINDINGS: Lungs: Unremarkable. No consolidation. Pleural spaces: Unremarkable. No pleural effusion. No pneumothorax. Heart/Mediastinum: Unremarkable. No cardiomegaly. Vasculature: Atherosclerosis is evident. Bones/joints: Mildly irregular appearance of the greater trochanter of the proximal left humerus is felt to be likely not acute. IMPRESSION: 1. No acute cardiopulmonary process. 2. Mildly irregular appearance of the greater trochanter of the proximal left humerus is felt to be likely not acute. However, recommend correlation for focal tenderness.
--- OUTSIDE RECORDS SUMMARY | 2025-10-23 21:24 | XMS_ITS | Encounter Summary ---
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 Not very hard 09/27/2025 [facility] - Occupational Stress [...] things needed for daily living? No 09/27/2025 [facility] Utilities Answer Date Recorded In the past [...] GED or equivalent No 09/27/2025 Preferred Language Taiwanese 09/27/2025 PHQ-2 Answer Date Recorded Patient Health Questionnaire-2 Score 0 09/27/2025 Comments No Sex and Gender Information Value Date Recorded Sex Assigned at Not on file Legal Sex Female 10:45 AM EDT Gender Identity Not on file Sexual Orientation Not on file documented as of this encounter Functional Status * Calculated C-SSRS Risk Score (Lifetime/Recent) Answer Date of Assessment Author No Risk Indicated 09/26/2025 10:36 AM Miguel Siegel ms, RN * [place] Suicide Severity Rating Scale (Screener/Recent Self-Report) Question Answer Date of Assessment Author 1. Wish to be (Past 1 Month) No 09/26/2025 10:36 AM Miguel Harper RN 2. Non-Specific Active Suici williams Thoughts (Past 1 Month) No 09/26/2025 10:36 AM Alex Harpre RN 6. Suicidal Behavior (Lifetime) No 10:36 AM Miguel Harper RN documented as of this encounter Plan of Treatment Upcoming Encounters Date Type Department Care Team (Late st Contact Info) Description 12/31/2025 10:45 AM EST Office Visit [facility] [address] [facility] [address] [place] [address] Breanne Peterson, ELECTRICAL TESTER BATTERY [address] [facility] [address] [place] [address] documented as of this encounter Visit Diagnoses Not on filedocumented in this encounter Additional Health Concerns Infection Onset Date Last Indicated Resolved Time C.difficile (rule out) 09/26/2025 09/26/202509/27 2:30 PM EST documented as of this encounter Care Teams Sand Mill Operator Core Sand Relationship Specialty Start Date End Date Santosh Phipps MD [address] [facility] [address] [place] [address] PCP - General Internal Medicine 01/25/17 10/01/25 documented as of this encounter
--- OUTSIDE RECORDS SUMMARY | 2025-10-23 21:24 | XMS_ITS | Clinical Summary ---
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 [facility]/ZIP Co de Phone Number [facility]
[address] [place] [address], * Clostridioides difficile toxin Ag, Reflex - Stool, Per Rectum (09/27/2025 10:49 AM EST) C.diff Toxin Ag Negative Negative DISK DIFFUSION 09/27/2025 12:32 PM EST [facility] Stool Specimen from rectum / Unknown Collection / Unknown 09/27/2025 10:49 AM EST 09/27/2025 10:49 AM EST Narrative [facility] - 09/27/2025 12:32 PM EST DNA from a toxigenic strain of C.difficile was detected, although the free toxin itself was not detected. These findings are consistent with C.difficile colonization and may not reflect actual C.difficile infection. Clinical correlation needed. Luciano Thibodeaux MD MICROBIOLOGY - GENERAL ORDER DAVID Final Result Performing Organization Address City/[facility]/ZIP Co de Phone Number [facility]
[address] [place] [address], * (ABNORMAL) Clostridioides difficile Toxin, PCR - Stool, Per Rectum (09/27/2025 10:49 AM EST) Toxigenic C. difficile by PCR Detected( A) Not Detected CEPHEID GENEXPERT 09/27/2025 12:33 PM EST [facility] Stool Specimen from rectum / Unknown Collection / Unknown 09/27/2025 10:49 AM EST 09/27/2025 10:49 AM EST Narrative [facility] - 09/27/2025 12:33 PM EST DNA from a toxigenic strain of C.difficile has been detected. Antigen testing for the presence of free C.difficile toxin is currently in progress, to help determine the clinical significance of this PCR result. Luciano Thibodeaux MD MICROBIOLOGY - GENERAL ORDER DAVID Final Result Performing Organization Address [facility] Co de Phone Number [facility]
[address] [place] [address], * (ABNORMAL) Iron Profile w/o Ferritin (09/27/2025 7:08 AM EST) Iron 33(L) 37 - 145 mcg/dL 09/27/2025 12:18 PM EST [facility] Iron Saturation (TSAT) 20 20 - 50 % 09/27/2025 12:18 PM EST [facility] Transferrin 109(L) 200 - 360 mg/dL 09/27/2025 12:18 PM EST [facility] TIBC 162(L) 298 - 536 mcg/dL 09/27/2025 12:18 PM EST [facility] Blood Venipuncture / Unknown 09/27/2025 7:08 AM EST 09/27/2025 8:50 AM EST Emeli JIMENEZ LAB BLOOD ORDERABLES Final Resu lt Performing Organization Address [facility] Co de Phone Number [facility]
[address] [place] [address], * (ABNORMAL) Ferritin (09/27/2025 7:08 AM EST) Ferritin 536.00(H) 13.00 - 150.00 ng/mL 09/27/2025 12:18 PM EST [facility] Blood Venipuncture / Unknown 09/27/2025 7:08 AM EST 09/27/2025 8:50 AM EST [facility] - 09/27/2025 12:18 PM EST Results may be falsely decreased if patient taking Biotin. Emeli JIMENEZ LAB BLOOD ORDERABLES Final Resu lt Performing Organization Address City/[facility] Co de Phone Number [facility]
[address] [place] [address], * Cortisol (09/27/2025 7:08 AM EST) Cortisol 18.50 mcg/dL 09/27/2025 11:34 AM EST [facility] Blood Venipuncture / Unknown 09/27/2025 7:08 AM EST 09/27/2025 8:50 AM EST [facility] - 09/27/2025 11:34 AM EST Cortisol Reference Ranges: Cortisol 6AM - 10AM Range: 6.02-18.40 mcg/dl Cortisol 4PM - 8PM Range: 2.68-10.50 mcg/dl Results may be falsely increased if patient taking Biotin. Emeli JIMENEZ LAB BLOOD ORDERABLES Final Resu lt Performing Organization Address City/[facility] Co de Phone Number [facility]
[address] [place] [address], * Reticulocytes (09/27/2025 5:14 AM EST) Reticulocyte % 0.95 0.70 - 1.90 % 09/27/2025 1:51 PM EST [facility] Reticulocyte Absolute 0.0384 0.0200 - 0.1300 10*6/mm3 09/27/2025 1:51 PM EST [facility] Blood Venipuncture / Unknown 09/27/2025 5:14 AM EST 09/27/2025 5:43 AM EST Emeli JIMENEZ LAB BLOOD ORDERABLES Final Resu lt Performing Organization Address [facility] Co de Phone Number [facility]
[address] [place] [address], * STAT Lactic Acid, Reflex (09/26/2025 7:41 PM EST) Only the most recent of4 resultswithin the time period is included. Pathologist [facility] Lactate 1.6 0.5 - 2.0 mmol/L 09/26/2025 8:30 PM EST [facility] Comment:Falsely depressed re sults may occur on samples drawn from patients receiving N-Acetylcysteine (NAC) or Metamizole. Blood Venipuncture / Unknown 09/26/2025 7:41 PM EST 09/26/2025 8:01 PM EST Luciano Thibodeaux MD LAB BLOOD ORDERABLES Final R esult Performing Organization Address [facility] de Phone Number [facility]
[address] [place] [address], * Blood Culture - Blood, Hand, Right (09/26/2025 1:47 PM EST) Only the most recent of2 resultswithin the time period is included. Pathologist [facility] Blood Culture No growth at 5 days 10/01/2025 2:00 PM EST [facility] Blood Structure of right hand / Unknown Venipuncture / Unknown 09/26/2025 1:47 PM EST 09/26/2025 1:56 PM EST Narrative [facility] - 10/01/2025 2:00 PM EST Less than seven (7) mL's of blood was collected. Insufficient quantity may yield false negative results. Luciano Thibodeaux MD MICROBIOLOGY - GENERAL ORDER DAVID Final Result Performing Organization Address City/[facility] Co de Phone Number [facility]
[address] [place] [address], * (ABNORMAL) Blood Gas, Venous With Co-Ox (09/26/2025 1:07 PM EST) [facility] Site Nurse/Dr Draw 09/26/2025 1:08 PM [facility] pH, Venous 7.254(LL ) 7.310 - 7.410 pH Units 09/26/2025 1:08 PM [facility] Comment:84 Value below refer ence range pCO2, Venous 43.4 41.0 - 51.0 mm Hg 09/26/2025 1:08 PM [facility] pO2, Venous 20.3(L) 27.0 - 53.0 mm Hg 09/26/2025 1:08 PM [facility] Comment:84 Value below refer ence range HCO3, Venous 19.2(L) 22.0 - 28.0 mmol/L 09/26/2025 1:08 PM [facility] Base Excess, Venous -7.8(L) -2.0 - 2.0 mmol/L 09/26/2025 1:08 PM [facility] Hemoglobin, Blood Gas 13.8(L) 14 - 18 g/dL 09/26/2025 1:08 PM [facility] Oxyhemoglobin Venous 22.1 % 09/08 1:08 PM [facility] Comment:84 Value below refer ence range Methemoglobin Venous 0.3 % 09/08 1:08 PM [facility] Carboxyhemoglobin Venous 0.7 % 09/26/2025 1:08 PM [facility] CO2 Content 20.5(L) 22 - 33 mmol/L 09/26/2025 1:08 PM [facility] Temperature 37.0 09/26/2025 1:08 PM [facility] Barometric Pressure for Blood Gas 09/26/2025 1:08 PM [facility] Comment:N/A Modality Room Air 09/26/2025 1:08 PM EST [facility] FIO2 21 % 09/26/2025 1:08 PM EST [facility] Rate 0 Breaths/ minute 09/26/2025 1:08 PM EST [facility] PIP 0 cmH2O 09/26/2025 1:08 PM EST [facility] Comment:Meter: [id number] Long Winder Tender: [id number] IPAP 0 cm H2O 09/26/2025 1:08 PM EST [facility] EPAP 0 cm H2O 09/26/2025 1:08 PM EST [facility] Venous Blood 09/26/2025 1:07 PM EST 09/26/2025 1:07 PM EST us Luciano Thibodeaux MD LAB BLOOD ORDERABLES Final R esult [facility]
[address] [place] [address], [place] * CT Abdomen Pelvis With Contrast (09/26/2025 12:45 PM EST) Only the most recent of2 resultswithin the time period is included. Anatomical Region Laterality Modality Abdomen, Pelvis N/A Computed Tomogra phy 09/26/2025 12:5 0 PM EST Impressions 09/26/2025 12:57 PM EST Impression: 1.Widespread colonic wall thickening, most notably involving the proximal/mid colon, concerning for colitis. 2.Additional findings as detailed above. Electronically Signed: Richar Parker MD 09/26/2025 12:57 PM EST Workstation ID: [id number] Narrative 09/26/2025 12:[address] ABDOMEN [...] MD 09/26/2025 12:57 PM EST Workstation ID: [id number] us Luciano Thibodeaux MD IMG CT ORDERABLES Final Resu lt * CT Head Without Contrast (09/26/2025 12:45 PM EST) Anatomical Region Laterality Modality Head N/A Computed Tomogra phy 09/26/2025 12:4 7 PM EST Impressions 09/26/2025 12:49 PM EST Impression: 1.No acute intracranial abnormality identified. 2.Diffuse brain atrophy and chronic microvascular ischemic changes. Electronically Signed: Krzysztof Castano MD 09/26/2025 12:49 PM EST Workstation ID: [id number] Narrative 09/26/2025 12:[address] HEAD [...] MD 09/26/2025 12:49 PM EST Workstation ID: [id number] Luciano Thibodeaux MD IMG CT ORDERABLES Final Resu lt * (ABNORMAL) High Sensitivity Troponin T 1Hr (09/26/2025 12:10 PM EST) Only the most recent of2 resultswithin the time period is included. HS Troponin T 24(H) <14 ng/L 09/26/2025 12:36 PM EST [facility] Troponin T Numeric Delta 0 ng/L 09/26/2025 12:36 PM EST [facility] Troponin T % Delta 0 Abnormal if >/= 20% 09/26/2025 12:36 PM EST [facility] Blood Venipuncture / Unknown 09/26/2025 12:10 PM EST 09/26/2025 12:13 PM EST Narrative [facility] - 09/26/2025 12:36 PM EST High [...] due to an underlying chronic condition. us Luciano Thibodeaux MD LAB BLOOD ORDERABLES Final R esult [facility]
[address] [place] [address], * (ABNORMAL) Urinalysis, Microscopic Only - Straight Cath (09/26/2025 11:34 AM EST) Only the most recent of2 resultswithin the time period is included. RBC, UA 3-5(A) None Seen, 0-2 /HPF 09/26/2025 12:27 PM EST [facility] WBC, UA 3-5(A) None Seen, 0-2 /HPF 09/26/2025 12:27 PM EST [facility] Bacteria, UA 1+(A) None Seen /HPF 09/26/2025 12:27 PM EST [facility] Squamous Epithelial Cells, UA 0-2 None Seen, 0-2 /HPF 09/26/2025 12:27 PM EST [facility] Hyaline Casts, UA 0-2 None Seen /LPF 09/26/2025 12:27 PM EST [facility] Mucus, UA Moderate/2+(A) None Seen, Trace /HPF 09/26/2025 12:27 PM [facility] Methodology Manual Light Microscopy 09/26/2025 12:27 PM [facility] Urine (Straight Cath) Collection / Unknown 09/26/2025 11:34 AM EST 09/26/2025 11:43 AM EST Luciano Thibodeaux MD URINE ORDERABLES Final Resul t [facility]
[address] [place] [address], * (ABNORMAL) Urinalysis With Microscopic If Indicated (No Culture) - Straight Cath (09/26/2025 11:34 AM EST) Only the most recent of2 resultswithin the time period is included. Color, UA Dark Yellow(A) Yellow, Straw 09/26/2025 12:12 PM EST [facility] Appearance, UA Cloudy(A) Clear 09/26/2025 12:12 PM [facility] pH, UA 6.0 5.0 - 8.0 09/26/2025 12:12 PM EST [facility] Specific [place], UA 1.024 1.005 - 1.030 09/26/2025 12:12 PM [facility] Glucose, UA Negative Negative 09/26/2025 12:12 PM EST [facility] Ketones, UA Trace(A) Negative 09/26/2025 12:12 PM EST [facility] Bilirubin, UA Negative Negative 09/26/2025 12:12 PM [facility] Blood, UA Trace(A) Negative 09/26/2025 12:12 PM EST [facility] Protein, UA 30 mg/dL (1+)(A) Negative 09/26/2025 12:12 PM [facility] Leuk Esterase, UA Trace(A) Negative 09/26/2025 12:12 PM EST [facility] Nitrite, UA Negative Negative 09/26/2025 12:12 PM [facility] Urobilinogen, UA 1.0 E.U./dL 0.2 - 1.0 E.U./dL 09/26/2025 12:12 PM [facility] Urine (Straight Cath) Collection / Unknown 09/26/2025 11:34 AM EST 09/26/2025 11:43 AM EST us Luciano Thibodeaux MD URINE ORDERABLES Final Resul t [facility]
[address] [place] [address], * Urine Culture - Urine, Straight Cath (09/26/2025 11:34 AM EST) Only the most recent of2 resultswithin the time period is included. Urine Culture No growth MARCO 09/27/2025 10:42 AM EST [facility] Urine (Straight Cath) Collection / Unknown 09/26/2025 11:34 AM EST 09/26/2025 11:43 AM EST Luciano Thibodeaux MD MICROBIOLOGY - GENERAL ORDER DAVID Final Result [facility]
[address] [place] [address], * ECG 12 Lead Electrolyte Imbalance (09/26/2025 11:15 AM EST) Only the most recent of2 resultswithin the time period is included. QT Interval 344 ms BH ECG QTC Interval 469 ms ECG 09/26/2025 [...] By: cynthia jacobo Confirmed By: LUCIANO THIBODEAUX Luciano Thibodeaux MD ECG ORDERABLES Final Result BH ECG * XR Chest 1 View (09/26/2025 11:04 AM EST) Only the most recent of2 resultswithin the time period is included. Anatomical Region Laterality Modality Body N/A Radiographic Rima ging 09/26/2025 11:2 7 AM EST Impressions 09/26/2025 11:28 AM EST Impression: No acute cardiopulmonary abnormality Electronically Signed: Shannon Gray MD 09/26/2025 11:28 AM EST Workstation ID: [id number] Narrative 09/26/2025 11:28 AM EST XR CHEST [...] MD 09/26/2025 11:28 AM EST Workstation ID: [id number] Luciano Thibodeaux MD IMG DIAGNOSTIC IMAGING ORDER DAVID Final Result * (ABNORMAL) Beta Hydroxybutyrate Quantitative (09/26/2025 10:59 AM EST) Beta-Hydroxybu tyrate Quant 1.330(H) 0.020 - 0.270 mmol/L 09/26/2025 12:50 PM EST [facility] Blood Venipuncture / Unknown 09/26/2025 10:59 AM EST 09/26/2025 11:03 AM EST Narrative [facility] - 09/26/2025 12:50 PM EST In the assessment of possible diabetic ketoacidosis, the test should be interpreted along with other clinical and laboratory findings. A level greater than 1 mmol/L should require further evaluation and levels of more than 3 mmol/L require immediate medical review. Luciano Thibodeaux MD LAB BLOOD ORDERABLES Final R esult [facility]
[address] [place] [address], * Colon Top (09/26/2025 10:59 AM EST) Only the most recent of2 resultswithin the time period is included. Extra Tube Hold for add-ons. 09/26/2025 11:15 AM EST [facility] Comment:Auto resulted. Blood Venipuncture / Unknown 09/26/2025 10:59 AM EST 09/26/2025 11:03 AM EST Luciano Thibodeaux MD LAB BLOOD ORDER ONLY Final R esult [facility]
[address] [place] [address], * (ABNORMAL) TSH Rfx On Abnormal To Free T4 (09/26/2025 10:59 AM EST) TSH 12.900(H) 0.270 - 4.200 uIU/mL 09/26/2025 11:59 AM EST [facility] Blood Venipuncture / Unknown 09/26/2025 10:59 AM EST 09/26/2025 11:03 AM EST Luciano Thibodeaux MD LAB BLOOD ORDERABLES Final R esult [facility]
[address] [place] [address], * Gold Top - SST (09/26/2025 10:59 AM EST) Only the most recent of2 resultswithin the time period is included. Extra Tube Hold for add-ons. 09/26/2025 11:15 AM EST [facility] Comment:Auto resulted. Blood Venipuncture / Unknown 09/26/2025 10:59 AM EST 09/26/2025 11:03 AM EST Luicano Thibodeaux MD LAB BLOOD ORDER ONLY Final R esult Performing Organization Address City/[facility]/ZIP Co de Phone Number [facility]
[address] [place] [address], * Green Top (Gel) (09/26/2025 10:59 AM EST) Only the most recent of2 resultswithin the time period is included. Extra Tube Hold for add-ons. 09/26/2025 11:15 AM EST [facility] Comment:Auto resulted. Blood Venipuncture / Unknown 09/26/2025 10:59 AM EST 09/26/2025 11:03 AM EST Luciano Thibodeaux MD LAB BLOOD ORDER ONLY Final R esult [facility]
[address] [place] [address], * (ABNORMAL) Procalcitonin (09/26/2025 10:59 AM EST) Only the most recent of2 resultswithin the time period is included. Procalcitonin 0.47(H) 0.00 - 0.25 ng/mL 09/26/2025 2:06 PM EST [facility] Blood Venipuncture / Unknown 09/26/2025 10:59 AM EST 09/26/2025 11:03 AM EST Narrative [facility] - 09/26/2025 2:06 PM EST As [...] Day 4 values are available. Refer to http://www.ewwntm-dmh-pqmcvfnrfc.com Change in PCT <=80% A decrease of [...] MD LAB BLOOD ORDERABLES Final R esult [facility]
[address] [place] [address], * Lavender Top (09/26/2025 10:59 AM EST) Only the most recent of2 resultswithin the time period is included. Extra Tube hold for add-on 09/26/2025 11:15 AM EST [facility] Comment:Auto resulted Blood Venipuncture / Unknown 09/26/2025 10:59 AM EST 09/26/2025 11:03 AM EST Luciano Thibodeaux MD LAB BLOOD ORDER ONLY Final R esult Performing Organization Address City/[facility]/ZIP Co de Phone Number [facility]
[address] [place] [address], * Light Blue Top (09/26/2025 10:59 AM EST) Only the most recent of2 resultswithin the time period is included. Extra Tube Hold for add-ons. 09/26/2025 11:15 AM EST [facility] Comment:Auto resulted Blood Venipuncture / Unknown 09/26/2025 10:59 AM EST 09/26/2025 11:04 AM EST Luciano Thibodeaux MD LAB BLOOD ORDER ONLY Final R esult Performing Organization Address [facility] Co de Phone Number [facility]
[address] [place] [address], * (ABNORMAL) High Sensitivity Troponin T (09/26/2025 10:59 AM EST) Only the most recent of2 resultswithin the time period is included. HS Troponin T 24(H) <14 ng/L 09/26/2025 11:59 AM EST [facility] Blood Venipuncture / Unknown 09/26/2025 10:59 AM EST 09/26/2025 11:03 AM EST Narrative [facility] - 09/26/2025 11:59 AM EST High [...] due to an underlying chronic condition. us Luciano Thibodeaux MD LAB BLOOD ORDERABLES Final R esult Performing Organization Address City/[facility]/ZIP Co de Phone Number [facility]
[address] [place] [address], * (ABNORMAL) T4, Free (09/26/2025 10:59 AM EST) Pathologist [facility] Free T4 0.78(L) 0.92 - 1.68 ng/dL 09/26/2025 12:31 PM EST [facility] Blood Venipuncture / Unknown 09/26/2025 10:59 AM EST 09/26/2025 11:03 AM EST us Luciano Thibodeaux MD LAB BLOOD ORDERABLES Final R esult Performing Organization Address [facility] Co de Phone Number [facility]
[address] [place] [address], * Lipase (09/26/2025 10:59 AM EST) Only the most recent of2 resultswithin the time period is included. Lipase 39 13 - 60 U/L 09/26/2025 11:59 AM EST [facility] Blood Venipuncture / Unknown 09/26/2025 10:59 AM EST 09/26/2025 11:03 AM EST us Luciano Thibodeaux MD LAB BLOOD ORDERABLES Final R esult Performing Organization Address City/[facility] Co de Phone Number [facility]
[address] [place] [address], * (ABNORMAL) Lactic Acid, Plasma (09/26/2025 10:59 AM EST) Only the most recent of2 resultswithin the time period is included. Lactate 5.9(HH) 0.5 - 2.0 mmol/L 09/26/2025 12:40 PM EST [facility] Comment:Falsely depressed re sults may occur on samples drawn from patients receiving N-Acetylcysteine (NAC) or Metamizole. Blood Venipuncture / Unknown 09/26/2025 10:59 AM EST 09/26/2025 11:03 AM EST Luciano Thibodeaux MD LAB BLOOD ORDERABLES Final R esult Performing Organization Address [facility]/ZIP Co de Phone Number [facility]
[address] [place] [address], * (ABNORMAL) Calcium, Ionized (09/26/2025 10:59 AM EST) Ionized Calcium 1.10(L) 1.15 - 1.30 mmol/L 09/26/2025 11:24 AM EST [facility] Blood Venipuncture / Unknown 09/26/2025 10:59 AM EST 09/26/2025 11:03 AM EST Luciano Thibodeaux MD LAB BLOOD ORDERABLES Final R esult Performing Organization Address [facility] Co de Phone Number [facility]
[address] [place] [address], * Ammonia (09/26/2025 10:59 AM EST) Ammonia 14 11 - 51 umol/L 09/26/2025 11:31 AM EST [facility] Blood Venipuncture / Unknown 09/26/2025 10:59 AM EST 09/26/2025 11:04 AM EST Luciano Thibodeaux MD LAB BLOOD ORDERABLES Final R esult Performing Organization Address City/[facility]/ZIP Co de Phone Number [facility]
[address] [place] [address], * Endoscopy, Int (09/26/2025) [facility] INTERFACE NEEDS Final Result * SCANNED PATHOLOGY (09/26/2025) formerly [facility] PATHOLOGY/CYTOLOGY ORDERABLES Final Result * LABS SCANNED (09/19/2025) formerly [facility] LAB BLOOD ORDERABLES Final Re sult * IMAGING SCANNED (09/02/2025) Anatomical Region Laterality Modality Radiographic Rima ging formerly [facility] IMG DIAGNOSTIC IMAGING ORDERA BLES Final Result from Last 3 Months Additional Health Concerns Infection Onset Date Last Indicated C.difficile 09/27/2025 09/27/2025 Insurance [employer] MED[employer]ARE [employer] PPO Advance Directives * CPR (Attempt to Resuscitate) (Latest Code Status on File) Date Activated Date Inactivated Comments 09/26/2025 3:37 PM 10/01/2025 5:50 PM Question Answer Comments Code Status (Patient has no pulse and is not breathing): CPR (Attempt to Resuscitate) Medical Interventions (Patie nt has pulse or is breathing): Full Support Care Teams Qualitative Researcher Relationship Specialty Start Date End Date Sobeida Richmond PA [address] [place] [address] PCP - General Physician Restaurant Cashier 10/02/25
--- OUTSIDE RECORDS SUMMARY | 2025-10-23 21:24 | XMS_ITS | Clinical Summary ---
Author Organization [facility] Address [address] [place] [address] Phone Care Team Providers Care [employer] Name Role Phone Unavailable Unavailable Conditions or Problems No information available. Medications No information available. Medications Administered No information available. Allergies, Adverse Reactions, Alerts No information available. Results No information available. Plan of Care No information available. Procedures No information available. Vital Signs No information available. Immunizations No information available. Advance Directives No information available.
--- OUTSIDE RECORDS SUMMARY | 2025-10-23 21:24 | XMS_ITS | Continuity of Care Document ---
Author Organization [place] - [facility]mit [facility] Address [address] [place] [address] Assessment No assessment recorded. Plan of Treatment Reminders Order Date Submit Date Provider Last Modified By Organization Details Last Modified Time Details Appointments FOLLOW UP 30 2024 04:00P M Sobeida Richmond PA-C Not available Not available Not available Lab None recorded. Referral EGD referral 2024 025 [email or web address] Vijay Flores MD, [address], [place], [address], 10/16/2025 14:00:22 Procedures None recorded. Surgeries None recorded. Imaging None recorded. Medication Orders None recorded. Patient TargetsNo targets recorded. Patient Instructions Encounter Date Encounter Id Patient Instructions Last Modified By Organization Details Last Modified Time 08/20/2025 [id number] anorexia: care instructions [email or web address] Not available 08/23/2025 14:54:08 grief (actual/anticipat ed): care instructions [email or web address] Not available 08/23/2025 14:51:17 type 2 diabetes: care instructions Not available 08/23/2025 14:51:17 hypothyroidism: care instructions [email or web address] Not available 08/23/2025 14:51:17 high cholesterol : care instructions [email or web address] Not available 08/23/2025 14:51:17 learning about mood disorders [email or web address] Not available 08/23/2025 14:51:17 Reason for Referral EGD Referral for Loss of tanvi etite Referring Physician: Sobeida Richmond, Family Medicine, Encounter Date: 08/20/2025 Results Created Date Observation Date Name Description Value Unit Range Abnormal Flag Note LastModifiedBy Organization Detail LastModifiedTime 09/02/2009/02/2025 CT, abdom en + pelvi s, w/wo contr ast No observ ation record ed. [email or web address] [facility] [address], [place], [address], 09/03/2025 09:14:14 Result Notes None recorded. Problems Name Problem SNOMED Code Status Onset Date Resolution Date Notes Provider Name and Address Organization Details Recorded Time Chronic neck pain 358633125146 7 Active 2023 TONY Tim [address] [place] [address], 36[address] 8, [employer] 4 10:34:35 Cervical spondylos is 439283823 Active 2023 TONY Tim [address] [place] [address], 76317-905 8, [employer] 4 10:34:48 Hypothyro idism 40098875 Active 2023 TONY Tim [address] [place] [address], 53747-485 8, [employer] 4 10:35:00 Migraine 31191549 Active 2023 TONY Tim [address] [place] [address], 68000-162 8, [employer] 5 13:15:35 Hyperlipi demia 78576328 Active 2023 TONY Tim [address] [place] [address], 96794-721 8, [employer] 4 10:35:31 Depressiv e disorder 84432007 Active 2023 Sobeida Richmond [address], [address] 8, [employer] 4 10:36:00 Influenza A virus present 992392319483 Completed 202301/10/2025 TONY Tim [address] [place] [address], 51952-511 8, [employer] 5 13:25:22 Chronic kidney disease 710391957 Active 2023 TONY Tim [address] [place] [address], 94937-505 8, [employer] 4 13:08:43 Acute right otitis media 407999536 Completed 202301/10/2025 TONY Tim [address] [place] [address], 23247-529 8, [employer] 5 13:25:10 Generaliz ed anxiety disorder 83938062 Active 2023 TONY Tim [address] [place] [address], 03647-532 8, [employer] 4 13:08:53 Vitamin D deficienc y 20404562 Active 2023 TONY Tim [address] [place] [address], 12339-576 8, [employer] 4 13:08:48 Newly diagnosed diabetes 352906676 Active 2023 TONY Tim [address] [place] [address], 68224-018 8, [employer] 4 17:00:53 Type 2 diabetes mellitus without complicat ion 332186938 Active 2023 TONY Tim [address] [place] [address], 19339-709 8, [employer] 4 17:04:31 Diabetes mellitus 09977556 Active 2023 TONY Tim [address] [place] [address], 10444-079 8, [employer] 5 13:25:17 Fracture at wrist and/or hand level 434289752 Completed 202308/23/2025 TONY Tim [address] [place] [address], 91105-434 8, [employer] 5 14:50:11 Fracture of shoulder 708963220670 32720 Completed 202308/23/2025 TONY Tim [address] [place] [address], 79539-010 8, [employer] 14:50:07 Osteopeni a 054390172 Active 2024 TONY Tim [address] [place] [address], 20757-392 8, [employer] 14:58:45 Tachycard ia 5971802 Active 2024 TONY Tim [address] [place] [address], 11466-627 8, [employer] 15:28:41 Primary insomnia 1498015 Active 2024 TONY Tim [address] [place] [address], 66238-222 8, [employer] 17:14:39 Grief finding 758921673 Active 2024 TONY Tim [address] [place] [address], 75851-142 8, [employer] 14:51:12 Loss of appetite 21275449 Active 2024 TONY Tim [address] [place] [address], 09736-670 8, [employer] 14:54:01 Disorder of kidney due to diabetes mellitus 900548763 Active 2024 TONY Tim [address] [place] [address], 75500-202 8, [employer] 12:20:03 Unintenti onal weight loss 998836097 Active 2024 TONY Tim [address] [place] [address], 87588-098 8, [employer] 09:37:58 Peptic ulcer 85048679 Active 2024 TONY Tim [address] [place] [address], 30777-724 8, [employer] 5 09:38:02 Malrotati on of small intestine 6473340747 Active 2024 TONY Tim [address] [place] [address], 37155-711 8, [employer] 5 09:38:11 Hypertrop hy of urinary bladder 880354208 Active 2024 TONY Tim [address] [place] [address], 61546-980 8, [employer] 5 09:38:17 Hypokalem ia 13029641 Active 2024 TONY Tim [address] [place] [address], 67564-499 8, [employer] 5 14:24:34 Weight decreased 126354935 Active 2024 TONY Tim [address] [place] [address], 99284-654 8, [employer] 5 15:32:18 Problem Notes None recorded. Procedures Surgical History Date Name Laterality Status Provider Name and Address Organization Details Recorded Time 5 Gallbladder Surgery completed Elvia Yepez [employer] 04/23/2025 16:45:35 5 Diabetic Foot Screen completed TONY Tim [address] [place] [address], [address], [employer] 03/07/2025 13:17:20 Caesarean Section completed [employer] 10/01/2024 10:06:43 Tubal Ligation completed [employer] 10/01/2024 10:06:43 Thyroid Surgery completed [employer] 10/01/2024 10:06:43 Imaging Results None recorded. Procedure Notes None recorded. Medical Equipment None Reported. Allergies Allergen ID Allergen Name Allergen Category Reaction Reaction Severity Criticality Documentation Date Start Date Code Code System Note Provider Name and Address Organization Details Recorded Time 51714 Product containin g penicilli n (product) medicatio n rash Not available Not available 10/01/2024 27126 8001 SNOMED Meg Vice nataly, [place] - [facility] [employer] 10:06:41 66676 sumatript an medicatio n Not available Not available Not available 10/04/20252016 90028 RxNorm Not Available tab - External Data Service - prod 16:56:30 67435 topiramat e medicatio n Not available Not available Not available 10/04/20252016 10388 RxNorm Not Available tab - External Data [...] and Address Organization Details Last Updated DateTime 162.56 cm 29.6 kg/m2 46562.0 4 g 97.8 [degF] 104 /min 96 % 106/76 mm[Hg] Meg Hodge [employer] 17:09:10 Social History Question Answer Notes LastModified by Organizat ion Details LastModified Time Tobacco Smoking Status Never Smoker Mge Hodge nataly, [employer] 10/01/2024 10:06:43 Do You Have An [...] Information not available 08/20/2025 What Type Of Crime Scene Technician Do You Use? None Information not available [...] Or The Highest Degree You Have Received? [id number] Information not available 10/01/2024 How Many Days [...] Do You Have A Medical Power Of Buzzsaw Operator Helper? No Information not available 10/01/2024 What Was [...] anxious, or unable to sleep at night)? [id number] Information not available 10/01/2024 Do you have [...] virus, trivalent, PF 10/11/2025 completed Meg Vice ingram, [employer] 10/11/2025 16:46:43 COVID-19, mRNA, LNP-S, PF, 100 mcg/0.5mL dose or 50 mcg/0.25mL dose 11/13/2020 completed Meg Vice null, [employer] 11/05/2024 08:54:28 COVID-19, mRNA, LNP-S, PF, 100 mcg/0.5mL dose or 50 mcg/0.25mL dose 12/15/2020 completed Meg Vice null, [employer] 11/05/2024 08:54:28 COVID-19, mRNA, LNP-S, PF, 100 mcg/0.5mL dose or 50 mcg/0.25mL dose 09/11/2021 completed Meg Vice null, [employer] 11/05/2024 08:54:28 Past Encounters Encounter ID Performer Location Encounter Start Date Encounter Closed Date Diagnosis/Indication Diagnosis SNOMED-CT Code Diagnosis ICD10 Code Diagnosis IMO Codes Diagnosis Note [id number] TONY Tim [address] [address] 08/20/2025 16:48:09 08/20/2025 17:23:56 Generalized anxiety disorder 94631011 F41.1 Depressive disorder 3548 9007 F32.A Hyperlipidemia 95326090 E78.5 Type 2 alvina betes mellitus without complication 317616212 E11.9 Hypothyroidism 82008117 E03.9 Vitamin D deficiency 347 88517 E55.9 Chronic ki dney disease 463873338 N18.9 Grief finding 345758165 F43.20 06291 Loss of appetite 3060423 6 R63.0 16320 Health Concerns Section Related Observation LastModified by Organization Detai ls LastModified Time None Recorded Concern Status LastModified by Organization Details LastModified Time None Recorded Payers Encounter Date Sequence Insurance Name Policy Number Policy Escamilla Covered Member ID Escamilla Member ID Guarantor Name 08/20/2025 1 FARRAH: EMMANUEL GASTON OF [facility] MED[employer]LUE PLUS (MEDICARE REPLACEMENT HMO) [id number] Bella Presley [id number] Bella Presley Notes Date Note Type Note Provider Name and Address Organization Details Recorded Time 08/20/2025 text/html ROS as noted in the HPI Patient presents for followup. History of anxiety/depress ion, HLD, DM, CKD, hypothyroidism, vitamin D deficiency. She lost her suddenly a few months ago. She is not eating and has lost 18 pounds. Daughter is concerned. TONY Tim [address] [place] [address], [address], [facility] [employer] 08/23/2025 14:54:13 OBGyn Episode No OBEpisode recorded.
--- OUTSIDE RECORDS SUMMARY | 2025-10-23 21:24 | XMS_ITS | Continuity of Care Document ---
Author Organization [place] - [employer] [facility] Address [address] [place] [address] Assessment Encounter Date Assessment Date Assessment LastModified by Organization Details LastModified Time 09/19/2025 09/19/2025 Advised daughter to take her to ER for evaluation Gastro appt pending Rapid weight loss extremely concerning; now also concerned for SBO [email or web address] Not available 09/24/2025 09:39:28 Plan of Treatment Reminders Order Date Submit Date Provider Last Modified By Organization Details Last Modified Time Details Appointments FOLLOW UP 30 2024 04:00P M Sobeida Richmond PA-C Not available Not available Not available Lab None recorded . Referral None recorded . Procedures None recorded . Surgeries None recorded . Imaging None recorded . Medication Orders None recorded . Patient TargetsNo targets recorded. Patient InstructionsNo instructions recorded. Reason for Referral None Reported. Results Created Date Observation Date Name Description Value Unit Range Abnormal Flag Note LastModifiedBy Organization Detail LastModifiedTime 08/23/2008/24/2025 CBC WITH DIFFE RENTI AL/PL ATELE T WBC 12.5 x10e3 /uL 3.4-10 .8 above high normal Not Available [facility] ([facility]) [address] [facility], [place], [address], 08/24/2025 09:07:58 08/23/2008/24/2025 CBC WITH DIFFE RENTI AL/PL ATELE T RBC 5.27 x10e6 /uL 3.77-5 .28 normal Not Available [facility] ([facility]) [address] [facility], [place], [address], 08/24/2025 09:07:58 08/23/20 25 08/24/2025 CBC WITH DIFFE RENTI AL/PL ATELE T hemoglobin 13.7 g/dL 11.1-1 5.9 normal Not Available [facility] ([facility]) [address] [facility], [place], [address], 08/24/2025 09:07:58 08/23/2008/24/2025 CBC WITH DIFFE RENTI AL/PL ATELE T hematocrit 43.8 % 34.0-4 6.6 normal Not Available [facility] ([facility]) [address] [facility], [place], [address], 08/24/2025 09:07:58 08/23/2008/24/2025 CBC WITH DIFFE RENTI AL/PL ATELE T MCV 83 fL 79-97 normal Not Available [facility] ([facility]) [address] [facility], [place], [address], 08/24/2025 09:07:58 08/23/2008/24/2025 CBC WITH DIFFE RENTI AL/PL ATELE T MCH 26.0 pg 26.6-3 3.0 below low normal Not Available [facility] ([facility]) [address] [place], [address], 08/24/2025 09:07:58 08/23/2008/24/2025 CBC WITH DIFFE RENTI AL/PL ATELE T MCHC 31.3 g/dL 31.5-3 5.7 below low normal Not Available [facility] ([facility]) [address] [place], [address], 08/24/2025 09:07:58 08/23/2008/24/2025 CBC WITH DIFFE RENTI AL/PL ATELE T RDW 14.4 % 11.7-1 5.4 Not Available [facility] ([facility]) [address] [place], [address], 08/24/2025 09:07:58 08/23/2008/24/2025 CBC WITH DIFFE RENTI AL/PL ATELE T platelets 265 x10e3 /uL 150-45 0 normal Not Available [facility] ([facility]) [address] [facility], [place], [address], 08/24/2025 09:07:58 08/23/2008/24/2025 CBC WITH DIFFE RENTI AL/PL ATELE T neutrophils 78 % not estab. normal Not Available [facility] ([facility]) [address] [facility], [place], [address], 08/24/2025 09:07:58 08/23/2008/24/2025 CBC WITH DIFFE RENTI AL/PL ATELE T lymphs 15 % not estab. normal Not Available [facility] ([facility]) [address] [facility], [place], [address], 08/24/2025 09:07:58 08/23/2008/24/2025 CBC WITH DIFFE RENTI AL/PL ATELE T monocytes 5 % not estab. normal Not Available [facility] ([facility]) [address] [facility], [place], [address], 08/24/2025 09:07:58 08/23/2008/24/2025 CBC WITH DIFFE RENTI AL/PL ATELE T eos 1 % not estab. normal Not Available [facility] ([facility]) [address] [facility], [place], [address], 08/24/2025 09:07:58 08/23/2008/24/2025 CBC WITH DIFFE RENTI AL/PL ATELE T basos 0 % not estab. normal Not Available [facility] ([facility]) [address] [facility], [place], [address], 08/24/2025 09:07:58 08/23/2008/24/2025 CBC WITH DIFFE RENTI AL/PL ATELE T immature cells STRAIGHTEDGE MAN Not Available [facility] ([facility]) [address] [place], [address], 08/24/2025 09:07:58 08/23/2008/24/2025 CBC WITH DIFFE RENTI AL/PL ATELE T neutrophils (absolute) 9.8 x10e3 /uL 1.4-7. 0 above high normal Not Available [facility] ([facility]) [address] [place], [address], 08/24/2025 09:07:58 08/23/2008/24/2025 CBC WITH DIFFE RENTI AL/PL ATELE T lymphs (absolute) 1.9 x10e3 /uL 0.7-3. 1 normal Not Available [facility] ([facility]) [address] [place], [address], 08/24/2025 09:07:58 08/23/2008/24/2025 CBC WITH DIFFE RENTI AL/PL ATELE T monocytes(ab solute) 0.7 x10e3 /uL 0.1-0. 9 normal Not Available [facility] ([facility]) [address] [place], [address], 08/24/2025 09:07:58 08/23/2008/24/2025 CBC WITH DIFFE RENTI AL/PL ATELE T eos (absolute) 0.1 x10e3 /uL 0.0-0. 4 normal Not Available [facility] ([facility]) [address] [place], [address], 08/24/2025 09:07:58 08/23/2008/24/2025 CBC WITH DIFFE RENTI AL/PL ATELE T baso (absolute) 0.0 x10e3 /uL 0.0-0. 2 normal Not Available [facility] ([facility]) [address] [place], [address], 08/24/2025 09:07:58 08/23/20 25 08/24/2025 CBC WITH DIFFE RENTI AL/PL ATELE T immature granulocytes 1 % not estab. Not Available [facility] ([facility]) [address] [facility], [place], [address], 08/24/2025 09:07:58 08/23/2008/24/2025 CBC WITH DIFFE RENTI AL/PL ATELE T immature grans (abs) 0.1 x10e3 /uL 0.0-0. 1 Not Available [facility] ([facility]) [address] [facility], [place], [address], 08/24/2025 09:07:58 08/23/2008/24/2025 CBC WITH DIFFE RENTI AL/PL ATELE T NRBC STRAIGHTEDGE MAN Not Available [facility] ([facility]) [address] [facility], [place], [address], 08/24/2025 09:07:58 08/23/2008/24/2025 CBC WITH DIFFE RENTI AL/PL ATELE T hematology comments: STRAIGHTEDGE MAN Not Available [facility] ([facility]) [address] [facility], [place], [address], 08/24/2025 09:07:58 08/23/2008/24/2025 COMP. METAB OLIC PANEL (14) glucose 120 mg/dL 70-99 above high normal Not Available [facility] ([facility]) [address] [facility], [place], [address], 08/24/2025 09:07:59 08/23/2008/24/2025 COMP. METAB OLIC PANEL (14) BUN 12 mg/dL 8-27 normal Not Available [facility] ([facility]) [address] [facility], [place], [address], 08/24/2025 09:07:59 08/23/2008/24/2025 COMP. METAB OLIC PANEL (14) creatinine 1.11 mg/dL 0.57-1 .00 above high normal Not Available [facility] ([facility]) [address] [place], [address], 08/24/2025 09:07:59 08/23/20 25 08/24/2025 COMP. METAB OLIC PANEL (14) eGFR 56 mL/mi n/1.7 3 >59 below low normal Not Available [facility] ([facility]) [address] [place], [address], 08/24/2025 09:07:59 08/23/20 25 08/24/2025 COMP. METAB OLIC PANEL (14) BUN/creatini ne ratio 11 12-28 below low normal Not Available [facility] ([facility]) [address] [place], [address], 08/24/2025 09:07:59 08/23/20 25 08/24/2025 COMP. METAB OLIC PANEL (14) sodium 140 mmol/ L 134-14 4 normal Not Available [facility] ([facility]) [address] [place], [address], 08/24/2025 09:07:59 08/23/20 25 08/24/2025 COMP. METAB OLIC PANEL (14) potassium 3.7 mmol/ L 3.5-5. 2 normal Not Available [facility] ([facility]) [address] [place], [address], 08/24/2025 09:07:59 08/23/20 25 08/24/2025 COMP. METAB OLIC PANEL (14) chloride 100 mmol/ L 96-106 normal Not Available [facility] ([facility]) [address] [place], [address], 08/24/2025 09:07:59 08/23/20 25 08/24/2025 COMP. METAB OLIC PANEL (14) carbon dioxide, total 23 mmol/ L 20-29 normal Not Available [facility] ([facility]) [address] [facility], [place], [address], 08/24/2025 09:07:59 08/23/2008/24/2025 COMP. METAB OLIC PANEL (14) calcium 9.8 mg/dL 8.7-10 .3 normal Not Available [facility] ([facility]) [address] [facility] [place], [address], 08/24/2025 09:07:59 08/23/20 25 08/24/2025 COMP. METAB OLIC PANEL (14) protein, total 7.3 g/dL 6.0-8. 5 normal Not Available [facility] ([facility]) [address] [facility], [place], [address], 08/24/2025 09:07:59 08/23/2008/24/2025 COMP. METAB OLIC PANEL (14) albumin 4.2 g/dL 3.9-4. 9 normal Not Available [facility] ([facility]) [address] [facility] [place], [address], 08/24/2025 09:07:59 08/23/2008/24/2025 COMP. METAB OLIC PANEL (14) globulin, total 3.1 g/dL 1.5-4. 5 Not Available [facility] ([facility]) [address] [facility] [place], [address], 08/24/2025 09:07:59 08/23/2008/24/2025 COMP. METAB OLIC PANEL (14) bilirubin, total 0.4 mg/dL 0.0-1. 2 normal Not Available [facility] ([facility]) [address] [facility] [place], [address], 08/24/2025 09:07:59 08/23/20 25 08/24/2025 COMP. METAB OLIC PANEL (14) alkaline phosphatase 89 IU/L 49-135 normal Not Available [facility] ([facility]) [address] [facility], [place], [address], 08/24/2025 09:07:59 08/23/2008/24/2025 COMP. METAB OLIC PANEL (14) AST (SGOT) 18 IU/L 0-40 normal Not Available [facility] ([facility]) [address] [place], [address], 08/24/2025 09:07:59 08/23/20 25 08/24/2025 COMP. METAB OLIC PANEL (14) ALT (SGPT) 10 IU/L 0-32 normal Not Available [facility] ([facility]) [address] [place], [address], 08/24/2025 09:07:59 08/23/20 25 08/24/2025 LIPID PANEL cholesterol, total 129 mg/dL 100-19 9 normal Not Available [facility] ([facility]) [address] [place], [address], 08/24/2025 09:07:59 08/23/2008/24/2025 LIPID PANEL triglyceride s 109 mg/dL 0-149 normal Not Available [facility] ([facility]) [address] [place], [address], 08/24/2025 09:07:59 08/23/20 25 08/24/2025 LIPID PANEL HDL cholesterol 48 mg/dL >39 normal Not Available [facility] ([facility]) [address] [place], [address], 08/24/2025 09:07:59 08/23/2008/24/2025 LIPID PANEL VLDL cholesterol agueda 20 mg/dL 5-40 Not Available [facility] ([facility]) [address] [place], [address], 08/24/2025 09:07:59 08/23/2008/24/2025 LIPID PANEL LDL chol calc (nih) 61 mg/dL 0-99 Not Available [facility] ([facility]) [address] [facility], [place], [address], 08/24/2025 09:07:59 08/23/2008/24/2025 LIPID PANEL LDL calc comment: STRAIGHTEDGE MAN Not Available [facility] ([facility]) [address] [facility], [place], [address], 08/24/2025 09:07:59 08/23/2008/24/2025 HEMOG LOBIN A1C hemoglobin A1C 6.5 % 4.8-5. 6 above high normal Predi abete s: 5.7 - 6.4 Diabe radha: >6.4 Glyce mary contr ol for adult s with diabe radha: <7.0 Not Available [facility] ([facility]) [address] [facility], [place], [address], 08/24/2025 09:08:00 08/23/2008/24/2025 TSH TSH 0.321 uIU/m L 0.450- 4.500 below low normal Not Available [facility] ([facility]) [address] [place], [address], 08/24/2025 09:08:00 08/23/2008/24/2025 VITAM IN D, 25-HY [...] IOM (Inst itute of Medic ine). 2010. Dieta ry refer ence april es for calci um and D. Brad webster [place]: [employer] . 2. Jose alexander MF, Erin ey [place], Bisch off-F errar i KONG, et al. Evalu ation , treat ment, and preve ntion of vitam in D defic iency : an Endoc rine Socie ty clini agueda pract ice guide line. JCEM. 2010; 96(7) :1911 -30. Not Available [facility] ([facility]) [address], [place], [address], 08/24/2025 09:08:01 09/02/2009/02/2025 CT, abdom en + pelvi s, w/wo contr ast No observ ation record ed. [email or web address] [facility] [address], [place], [address], 09/03/2025 09:14:14 Result Notes None recorded. Problems Name Problem SNOMED Code Status Onset Date Resolution Date Notes Provider Name and Address Organization Details Recorded Time Chronic neck pain 009308056392 7 Active 2023 TONY Tim [address] [place] [address], [address], [employer] 4 10:34:35 Cervical spondylos is 720918500 Active 2023 Sobeida Richmond [address], [address], [employer] 4 10:34:48 Hypothyro idism 19692768 Active 2023 Sobeida Richmond [address], [address], [place] [employer] 4 10:35:00 Migraine 59370432 Active 2023 Sobeida Richmond [address], [address], [employer] 5 13:15:35 Hyperlipi demia 15921308 Active 2023 Sobeida Richmond [address], [address], [employer] 4 10:35:31 Depressiv e disorder 38727336 Active 2023 TONY Tim [address] [place] [address], [address], [employer] 4 10:36:00 Influenza A virus present 571700095961 Completed 202301/10/2025 TONY Tim [address] [place] [address], [address], [employer] 5 13:25:22 Chronic kidney disease 974476655 Active 2023 TONY Tim [address] [place] [address], [address], [employer] 4 13:08:43 Acute right otitis media 594141621 Completed 202301/10/2025 TONY Tim [address] [place] [address], [address], [employer] 5 13:25:10 Generaliz ed anxiety disorder 53796676 Active 2023 TONY Tim [address] [place] [address], [address] 8, [employer] 4 13:08:53 Vitamin D deficienc y 66439469 Active 2023 TONY Tim [address] [place] [address], [address] 8, [employer] 4 13:08:48 Newly diagnosed diabetes 880084772 Active 2023 TONY Tim [address] [place] [address], [address], [employer] 4 17:00:53 Type 2 diabetes mellitus without complicat ion 203776724 Active 2023 TONY Tim [address] [place] [address], [address], [employer] 4 17:04:31 Diabetes mellitus 06521779 Active 2023 TONY Tim [address] [place] [address], [address] 8, [employer] 13:25:17 Fracture at wrist and/or hand level 162517479 Completed 202308/23/2025 TONY Tim [address] [place] [address], [address], [employer] 14:50:11 Fracture of shoulder 812275053253 04876 Completed 202308/23/2025 TONY Tim [address] [place] [address], [address] 8, [employer] 14:50:07 Osteopeni a 373515325 Active 2024 TONY Tim [address] [place] [address], [address], [employer] 14:58:45 Tachycard ia 7279664 Active 2024 TONY Tim [address] [place] [address], [address] 8, [employer] 15:28:41 Primary insomnia 9100448 Active 2024 TONY Tim [address] [place] [address], [address] 8, [employer] 17:14:39 Grief finding 867011112 Active 2024 TONY Tim [address] [place] [address], [address] 8, [employer] 14:51:12 Loss of appetite 01961682 Active 2024 TONY Tim [address] [place] [address], [address] 8, [employer] 14:54:01 Disorder of kidney due to diabetes mellitus 015119010 Active 2024 TONY Tim [address] [place] [address], [address] 8, [employer] 5 12:20:03 Unintenti onal weight loss 340184102 Active 2024 TONY Tim [address] [place] [address], [address] 8, [employer] 09:37:58 Peptic ulcer 55818481 Active 2024 TONY Tim [address] [place] [address], [address], [employer] 5 09:38:02 Malrotati on of small intestine 4608953546 Active 2024 TONY Tim [address] [place] [address], [address] 8, [employer] 5 09:38:11 Hypertrop hy of urinary bladder 080529346 Active 2024 TONY Tim [address] [place] [address], [address], [employer] 5 09:38:17 Hypokalem ia 92898770 Active 2024 TONY Tim [address] [place] [address], [address] 8, [employer] 5 14:24:34 Weight decreased 908888259 Active 2024 TONY Tim [address] [place] [address], [address] 8, [employer] 5 15:32:18 Problem Notes None recorded. Procedures Surgical History Date Name Laterality Status Provider Name and Address Organization Details Recorded Time 5 Gallbladder Surgery completed Elvia Yepez [employer] 04/23/2025 16:45:35 5 Diabetic Foot Screen completed TONY Tim [address] [place] [address], [address], [employer] 03/07/2025 13:17:20 Caesarean Section completed Meg Hodge [employer] 10/01/2024 10:06:43 Tubal Ligation completed [facility] [employer] 10/01/2024 10:06:43 Thyroid Surgery completed Meg [employer] 10/01/2024 10:06:43 Imaging Results None recorded. Procedure Notes None recorded. Medical Equipment None Reported. Allergies Allergen ID Allergen Name Allergen Category Reaction Reaction Severity Criticality Documentation Date Start Date Code Code System Note Provider Name and Address Organization Details Recorded Time 62260 Product containin g penicilli n (product) medicatio n rash Not available Not available 10/01/[address] [facility] [employer] 10:06:41 20443 sumatript an medicatio n Not available Not available Not available 10/04/20252016 86725 RxNorm Not Available [employer] - prod 16:56:30 76694 topiramat e medicatio n Not available Not available Not available 10/04/20252016 13871 RxNorm Not Available [employer] - prod 16:56:30 Medications Name [...] Organization Details Last Updated DateTime 162.56 cm 26.7 kg/m2 39405.6 9 g 97.7 [degF] 118 /min 95 % 94/70 mm[Hg] [employer] 17:00:13 Social History Question Answer Notes LastModified by Organizat ion Details LastModified Time Tobacco Smoking Status Never Smoker [employer] [facility], [employer]. 10/01/2024 10:06:43 Do You Have An Advance [...] Information not available 08/20/2025 What Type Of Lottery Office Manager Do You Use? None Information not available [...] Or The Highest Degree You Have Received? [id number] Information not available 10/01/2024 How Many Days [...] Do You Have A Medical Power Of Women Nurse? No Information not available 10/01/2024 What Was The Date Of Your Most Recent Tobacco Screening? 10/11/2025 [email or web address] Information not available 10/11/2025 Do You Have [...] Functional Status Question Answer Note LastModified by [employer] ion Details LastModified Time Do you use [...] anxious, or unable to sleep at night)? [id number] Information not available 10/01/2024 Do you have [...] ent. Y Hypothyroidism N Lung Disease N COPD N Dermatologic Disorders N Depression Y Defects or Inherited Disease N Developmental or [...] Psychiatric/Mental Health Condition N Organ Transplant N Dialysis N Fibromyalgia N Schizophrenia N Headaches Y Kidney Disease [...] trivalent, PF 10/11/2025 completed Meg Vice null, [employer] 10/11/2025 16:46:43 COVID-19, mRNA, LNP-S, PF, 100 mcg/0.5mL dose or 50 mcg/0.25mL dose 11/13/2020 completed Meg Vice null, [employer] 11/05/2024 08:54:28 COVID-19, mRNA, LNP-S, PF, 100 mcg/0.5mL dose or 50 mcg/0.25mL dose 12/15/2020 completed Meg Vice null, [employer] 11/05/2024 08:54:28 COVID-19, mRNA, LNP-S, PF, 100 mcg/0.5mL dose or 50 mcg/0.25mL dose 09/11/2021 completed Meg Vice null, [employer] 11/05/2024 08:54:28 Past Encounters Encounter ID Performer Location Encounter Start Date Encounter Closed Date Diagnosis/Indication Diagnosis SNOMED-CT Code Diagnosis ICD10 Code Diagnosis IMO Codes Diagnosis Note [id number] TONY Tim [address] [address] 08/20/2025 16:48:09 08/20/2025 17:23:56 Generalized anxiety disorder 32917327 F41.1 Depressive disorder 3548 9007 F32.A Hyperlipidemia 46902155 E78.5 Type 2 alvina betes mellitus without complication 123404672 E11.9 Hypothyroidism 88017010 E03.9 Vitamin D deficiency 347 21848 E55.9 Chronic ki dney disease 047191161 N18.9 Grief finding 248098825 F43.20 97384 Loss of appetite 5488716 6 R63.0 [id number] TONY Tim [address] [address] 09/19/2025 16:51:30 09/19/2025 17:15:53 Unintentional weight loss 723942021 R63.4 857409 Patient has lost 35 pounds since June Peptic ulcer 99538635 K2 7.9 46200 Prilosec not helping Malrotatio n of small intestine 5461973310 Q43.3 9823220563 Hypertroph y of urinary bladder 999855358 N32.89 212265 Health Concerns Section Related Observation LastModified by Organization Detai ls LastModified Time None Recorded Concern Status LastModified by Organization Details LastModified Time None Recorded Payers Encounter Date Sequence Insurance Name Policy Number Policy Escamilla Covered Member ID Escamilla Member ID Guarantor Name 09/19/2025 1 MARILIN-TIM: EMMANUEL GASTON OF [id number] (MEDICARE REPLACEMENT HMO) [id number] Bella Livingood [id number] Bella Livingood Notes Date Note Type Note Provider Name and Address Organization Details Recorded Time 09/19/2025 text/html ROS as noted in the HPI Patient presents for followup.She is pale, listless. [...] with gastro in October. TONY Tim [address] [facility], [place], [address], [employer] 09/24/2025 09:42:17 OBGyn Episode No OBEpisode recorded.
[2025-10-23 21:25] VITALS: BP 103/88; PULSE 120; RESP 18; TEMP 36.5; O2SAT 94; BMI 24.2
--- NOTE | 2025-10-23 21:25 | CT_ITS ---
PROCEDURE INFORMATION: Exam: CT Thoracic Spine Without Contrast Exam date and time: 10/23/2025 10:09 PM Age: 60 years old Clinical indication: Injury or trauma; Fall TECHNIQUE: Imaging protocol: Computed tomography of the thoracic spine without contrast. Radiation optimization: All CT scans at this facility use at least one of these dose optimization techniques: automated exposure control; mA and/or kV adjustment per patient size (includes targeted exams where dose is matched to clinical indication); or iterative reconstruction. COMPARISON: CT CERVICAL SPINE WO CON 10/23/2025 10:07 PM FINDINGS: Bones/joints: L1 compression deformity appears likely longstanding/chronic. Anterior endplate osteophyte formation. Soft tissues: Unremarkable. Lungs: Benign granulomatous disease of the lung is noted. Coronary arteries: Calcific coronary artery disease is evident. Kidneys and ureters: Bilateral hydronephrosis described on CT lumbar spine. IMPRESSION: No acute thoracic spine fracture.
--- NOTE | 2025-10-23 21:25 | CT_ITS ---
PROCEDURE INFORMATION: Exam: CT Cervical Spine Without Contrast Exam date and time: 10/23/2025 10:07 PM Age: 60 years old Clinical indication: Injury or trauma; Fall TECHNIQUE: Imaging protocol: Computed tomography of the cervical spine without contrast. Total images: 470 Radiation optimization: All CT scans at this facility use at least one of these dose optimization techniques: automated exposure control; mA and/or kV adjustment per patient size (includes targeted exams where dose is matched to clinical indication); or iterative reconstruction. COMPARISON: CT ANGIO NECK 04/11/2025 8:34 PM FINDINGS: Bones: Partial straightening of cervical lordosis. Cervical vertebral body height and alignment is maintained. Minor anterior wedging T1 vertebral body with nonacute features. Base of the dens and the C1 and C2 articulations are preserved with mild degenerative arthropathy. The cervicooccipital junction is intact. The facet joints are appropriately aligned. Mild multilevel degenerate facet joint spondylosis, greater on the left. Mild degenerative disc disease greatest at C3-C4 and C6-C7 with associated posterior projecting disc osteophyte complex resulting in mild acquired spinal canal stenosis. No concerning bone lesions. Mastoid air cells: Partially opacified inferior left mastoid air cells. Lungs: The lung apices are clear. Vasculature: Minor calcifications bilateral carotid arteries. Soft tissues: No prevertebral soft tissue swelling. Unremarkable soft tissues of the neck. IMPRESSION: 1. No acute cervical fracture or traumatic subluxation. 2. Partial straightening of cervical lordosis from position or muscle spasm. 3. Mild multilevel degenerative disc disease and facet joint spondylosis.
--- NOTE | 2025-10-23 21:25 | CT_ITS ---
PROCEDURE INFORMATION: Exam: CT Lumbar Spine Without Contrast Exam date and time: 10/23/2025 10:14 PM Age: 60 years old Clinical indication: Injury or trauma; Fall; Additional info: Fall lower back pain TECHNIQUE: Imaging protocol: Computed tomography of the lumbar spine without contrast. Radiation optimization: All CT scans at this facility use at least one of these dose optimization techniques: automated exposure control; mA and/or kV adjustment per patient size (includes targeted exams where dose is matched to clinical indication); or iterative reconstruction. COMPARISON: CT LUMBAR SPINE WO CON 04/23/2020 10:49 AM FINDINGS: Bones/joints: L1 chronic compression. Mild disc bulges at L4-S1. Facet overgrowth resulting in moderate to severe left-sided neural foraminal narrowing from L3-S1. [place] left spinal scoliosis. Gallbladder and biliary ducts: Prior cholecystectomy noted. Kidneys and ureters: Moderate bilateral hydroureteronephrosis without visualized ureteral stone, though the distal ureters are not included on this exam. Urinary bladder: Significanturinary bladder distention. Vasculature: Atherosclerosis is evident. Soft tissues: Unremarkable. IMPRESSION: 1. Moderate bilateral hydroureteronephrosis without visualized ureteral stone, though the distal ureters are not included on this exam. This is likely related to severe urinary bladder distention with the possibility of secondary urinary infection. Recommend urinalysis. 2. Degenerative changes are present without acute osseous injury.
--- NOTE | 2025-10-23 21:25 | CT_ITS ---
PROCEDURE INFORMATION: Exam: CT Head Without Contrast Exam date and time: 10/23/2025 10:06 PM Age: 60 years old Clinical indication: Injury or trauma; Fall; Additional info: Fall and altered mental status TECHNIQUE: Imaging protocol: Computed tomography of the head without contrast. Total images: 540 Radiation optimization: All CT scans at this facility use at least one of these dose optimization techniques: automated exposure control; mA and/or kV adjustment per patient size (includes targeted exams where dose is matched to clinical indication); or iterative reconstruction. COMPARISON: CT ANGIO HEAD 04/11/2025 8:34 PM FINDINGS: Brain: No acute intracranial hemorrhage, midline shift, or mass. Mild age-related cortical involution. Mild remote white matter small-vessel ischemic changes. No acute territorial infarct. Basilar cisterns are preserved. Cerebral ventricles: No ventriculomegaly. Paranasal sinuses: Visualized sinuses are unremarkable. No fluid levels. Mastoid air cells: Visualized mastoid air cells are well aerated. Bones: Mild osteopenia. Hyperostosis of the frontal calvarium. No skull fracture. Soft tissues: Unremarkable. IMPRESSION: 1. No acute intracranial abnormality. 2. Mild chronic findings.
--- OUTSIDE RECORDS SUMMARY | 2025-10-23 21:25 | XMS_ITS | Encounter Summary ---
[facility] Address [address] [place] [address] Care Team Providers Care Hardboard Factory Worker Name Role Phone Basilio Newport TONY Primary Care Provider [phone] Encounter Details Date Type Department Care Team (Late st Contact Info) Description 10/15/2025 Readmission Management [facility] [address] [place] [phone] Tri Hilario RN Social History Tobacco Use Types Packs/Day [...] care, and heating? Not very hard 09/27/2025 [facility] [place] of Occupat ional Health - Occupational Stress [...] things needed for daily living? No 09/27/2025 [facility] Utilities Answer Date Recorded In the [...] GED or equivalent No 09/27/2025 Preferred Language Turkmen 09/27/2025 PHQ-2 Answer Date Recorded Patient Health Questionnaire-2 Score 0 09/27/2025 Comments No Sex and Gender Information Value Date Recorded Sex Assigned at Not on file Legal Sex Female 10:45 AM EDT Gender Identity Not on file Sexual Orientation Not on file documented as of this encounter Miscellaneous Notes * Outreach Note - Tri Hilario, RN - 10/15/2025 2:27 PM EST Sepsis Week 1 Survey Flowsheet Row Responses [facility] patient discharged from? [facility] Does the patient have one of the following disease processes/diagnoses(primary or secondary)? Sepsis Week 1 attempt successful? No Unsuccessful attempts Attempt 1 TRI Stephenson - Registered Nurse documented in this encounter Plan of Treatment Upcoming Encounters Date Type Department Care Team (Late st Contact Info) Description 12/31/2025 10:45 AM EST Office Visit [facility] GASTR[facility]Y [address] [facility] [address] [place] [id number] Breanne Peterson, PATIENT ACCOUNT REPRESENTATIVE [address] [facility] [address] [place] [address] documented as of this encounter Visit Diagnoses Not on filedocumented in this encounter Additional Health Concerns Infection Onset Date Last Indicated Resolved Time C.difficile 09/27/2025 09/27/2025 documented as of this encounter Care Teams Hardboard Factory Worker Relationship Specialty Start Date End Date Sobeida Richmond PA [address] [place] [address] PCP - General Physician Lens Dotter 10/02/25 documented as of this encounter
--- OUTSIDE RECORDS SUMMARY | 2025-10-23 21:25 | XMS_ITS | Encounter Summary ---
[facility] Address [address] [place] [address] Care Team Providers Care Job Specification Writer Name Role Phone Basilio [place] TONY Primary Care Provider [phone] Encounter Details Date Type Department Care Team (Late st Contact Info) Description 10/02/2025 Readmission Management [facility] [address] [place] [phone] Antoinette Case, RN Social History Tobacco Use Types Packs/Day [...] care, and heating? Not very hard 09/27/2025 [facility] [place] of Occupat ional Health - Occupational Stress [...] things needed for daily living? No 09/27/2025 [facility] Utilities Answer Date Recorded In the [...] GED or equivalent No 09/27/2025 Preferred Language Amharic 09/27/2025 PHQ-2 Answer Date Recorded Patient Health Questionnaire-2 Score 0 09/27/2025 Comments No Sex and Gender Information Value Date Recorded Sex Assigned at Not on file Legal Sex Female 10:45 AM EDT Gender Identity Not on file Sexual Orientation Not on file documented as of this encounter Miscellaneous Notes * Outreach Note - Antoinette Case, RN - 10/02/2025 7:59 AM EST Images from the original note were not included. Prep Survey Flowsheet Row Responses [facility] patient discharged from? [facility] Is LACE score less than 10 ? No Eligibility Readm Mgmt Discharge diagnosis Colitis Does the patient have one of the following disease processes/diagnoses(primary or secondary)? Sepsis [LACTIC ACIDOSIS, MALNUTRITION, PEPTIC ULCER, WEIGHT LOSS, T2DM] Does the patient have Home health ordered? No [PT DELCINED SNF AND HH, PER NOTES] Is there a DME ordered? No Prep survey completed? Yes Antoinette Davis - Registered Nurse documented in this encounter Plan of Treatment Upcoming Encounters Date Type Department Care Team (Late st Contact Info) Description 12/31/2025 10:45 AM EST Office Visit [facility] GASTROENTEROLOGY [address] [phone] Breanne Peterson APRN [address] [facility] [address] [place] [address] documented as of this encounter Visit Diagnoses Not on filedocumented in this encounter Additional Health Concerns Infection Onset Date Last Indicated Resolved Time C.difficile 09/27/2025 09/27/2025 documented as of this encounter Care Teams Job Specification Writer Relationship Specialty Start Date End Date Sobeida Richmond PA [address] [place] [address] PCP - General Physician Winder Operator 10/02/25 documented as of this encounter
--- OUTSIDE RECORDS SUMMARY | 2025-10-23 21:25 | XMS_ITS | Encounter Summary ---
Author Organization [facility] Address [address] [place] [address] Care Team Providers Care Janitor Caretaker Name Role Phone Santosh Phipps MD Primary Care Provider [phone] Encounter Details Date Type Department Care Team (Latest Contact Info) Description 09/19/2025 Travel Social History Tobacco Use Types Packs/Day [...] Author No Risk Indicated 09/19/2025 5:52 PM Ryan Palma RN * [facility] Suicide Severity Rating Scale (Screener/Recent Self-Report) Question Answer Date of Assessment Author 1. Wish to be (Past 1 Month) No 025 5:52 PM Pratima Palma, CRYSTAL 2. Non-Specific Active Suici williams Thoughts (Past 1 Month) No 09/19/2025 5:52 PM Pratima Palma , CRYSTAL 6. Suicidal Behavior (Lifetime) No 5 5:52 PM Pratima Palma, CRYSTAL documented as of this encounter Plan of Treatment Upcoming Encounters Date Type Department Care Team (Late st Contact Info) Description 12/31/2025 10:45 AM EST Office Visit [facility] [address] [facility] [address] [place] [phone] Breanne Peterson, LEARNING AND DEVELOPMENT DIRECTOR [address] [facility] [address] [place] [address] documented as of this encounter Visit Diagnoses Not on filedocumented in this encounter Care Teams Janitor Caretaker Relationship Specialty Start Date End Date Santosh Phipps MD [address] [facility] [address] [facility] [address] [place], [place] [id number] PCP - General Internal Medicine 01/25/17 10/01/25 documented as of this encounter
--- NOTE | 2025-10-23 21:26 | CT_ITS ---
PROCEDURE INFORMATION: Exam: CT Chest Without Contrast; Diagnostic Exam date and time: 10/23/2025 10:12 PM Age: 60 years old Clinical indication: Injury or trauma; Fall; Additional info: AMS, tachycardia TECHNIQUE: Imaging protocol: Diagnostic computed tomography of the chest without contrast. Radiation optimization: All CT scans at this facility use at least one of these dose optimization techniques: automated exposure control; mA and/or kV adjustment per patient size (includes targeted exams where dose is matched to clinical indication); or iterative reconstruction. COMPARISON: CR XR CHEST PORTABLE 10/23/2025 9:46 PM FINDINGS: Limitations: Examination limited by the lack of IV contrast. Lungs: Unremarkable. No consolidation. No masses. Benign granulomatous disease of the lung is noted. Pleural spaces: Unremarkable. No pneumothorax. No pleural effusion. Heart: Unremarkable. No cardiomegaly. No pericardial effusion. Coronary arteries: [place] coronary artery disease is evident. Lymph nodes: Unremarkable. No enlarged lymph nodes. Vasculature: The pulmonary artery is enlarged, suspicious for pulmonary artery hypertension. Bones/joints: Thoracic spondylosis is present. Soft tissues: Unremarkable. IMPRESSION: 1. No acute traumatic injuries of the chest identified. 2. The pulmonary artery is enlarged, suspicious for pulmonary artery hypertension. Recommend correlation for potential of obstructive sleep apnea. COMMENTS: Please see CT abdomen regarding additional findings.
--- NOTE | 2025-10-23 21:26 | CT_ITS ---
PROCEDURE INFORMATION: Exam: CT Abdomen And Pelvis Without Contrast Exam date and time: 10/23/2025 10:16 PM Age: 60 years old Clinical indication: Abdominal pain; Additional info: AMS, abd pain, diarrhea TECHNIQUE: Imaging protocol: Computed tomography of the abdomen and pelvis without contrast. Radiation optimization: All CT scans at this facility use at least one of these dose optimization techniques: automated exposure control; mA and/or kV adjustment per patient size (includes targeted exams where dose is matched to clinical indication); or iterative reconstruction. COMPARISON: CT ABDOMEN PELVIS W CON 09/02/2025 6:22 PM FINDINGS: Limitations: Examination limited by the lack of IV contrast. Streak artifact related to the positioning of the patient's arms. Lungs: Please see chest CT. Liver: Normal. No mass. Gallbladder and biliary ducts: Prior cholecystectomy noted. Pancreas: Normal. No ductal dilation. Spleen: Normal. No splenomegaly. Adrenal glands: Normal. No mass. Kidneys and ureters: Moderate bilateral hydroureteronephrosis without ureteral stone. Right sided renal cortical scarring is noted. 11 mm likely benign right renal cyst, requiring no further evaluation. Stomach and bowel: Developmental small bowel incomplete rotation is noted but generally considered incidental in a patient of this age. Fluid prominence in the colon could indicate prominent secretions due to infectious/inflammatory enteritis/colitis. Appendix: No evidence of appendicitis. Intraperitoneal space: Unremarkable. No free air. No significant fluid collection. Vasculature: Unremarkable. No abdominal aortic aneurysm. Lymph nodes: Unremarkable. No enlarged lymph nodes. Urinary bladder: Significant urinary bladder distention. Question urinary bladder wall inflammation, possibly cystitis. Reproductive: Uterus significantly displaced by the severely distended urinary bladder. Bones/joints: Chronic appearing compression fracture of L1. Mild disc bulges at L4-S1. Moderate to severe left-sided neural foraminal narrowing L3-S1 both hips are well depicted with no evidence of femoral neck fracture. Soft tissues: Unremarkable. IMPRESSION: 1. Moderate bilateral hydroureteronephrosis without ureteral stone. This is likely related to significant urinary bladder distention with the possibility of secondary urinary infection. Recommend urinalysis. 2. Question urinary bladder wall inflammation, possibly cystitis. Recommend urinalysis. 3. Fluid prominence in the colon could indicate prominent secretions due to infectious/inflammatory enteritis/colitis. 4. No acute traumatic injuries of the abdomen identified. COMMENTS: Please see CT chest regarding additional findings.
[2025-10-23 21:39] LABS: Hematocrit 35.2 % (37.0-47.0); Hemoglobin 11.3 g/dL (12.2-16.2); Immature Granulocytes % 1.2 %; Mean Corpuscular HGB Conc 32.1 g/dL (31.8-35.4); Mean Corpuscular Hemoglobin 25.5 pg (27.0-31.2); Mean Corpuscular Volume 79.3 fl (81-99); Nucleated Red Blood Cells % 0 %; Platelet Count 273 K/mm3 (142-424); Red Blood Count 4.44 M/mm3 (4.20-5.40); Red Cell Distribution Width-SD 50.6 fL; White Blood Count 14.7 K/mm3 (4.8-10.8)
[2025-10-23 21:46] LABS: INR 1.20 (0.9-1.1); Prothrombin Time 13.1 seconds (10.1-12.5)
[2025-10-23 21:47] LABS: Chloride 104 mmol/L (98-107); Sodium 133 mmol/L (136-145)
[2025-10-23 21:50] LABS: Alanine Aminotransferase 53 U/L (12-78); Alkaline Phosphatase 135 U/L (38-126); Anion Gap 20.4 mEq/L (5-15); Aspartate Amino Transferase 79 U/L (14-36); Bilirubin,Total 0.6 mg/dl (0.2-1.3); Carbon Dioxide 15 mmol/L (22.0-30.0); Creatinine Clearance Estimated 6 mL/min (50-200); Estimated Glomerular Filt Rate 4 ml/min (>60); GFR (African American) 4 ML/MIN (>60); Total Protein,Serum 8.0 g/dl (6.3-8.2)
[2025-10-23 21:51] LABS: Calcium 9.2 mg/dl (8.4-10.2); Glucose 148 mg/dl (74-100); Lipase 339 U/L (23-300); Magnesium 1.7 mg/dl (1.6-2.3)
[2025-10-23 21:53] LABS: Activated Partial Thrombo Time 28.1 seconds (22.8-30.6)
[2025-10-23 21:56] LABS: Adenovirus,PCR Not Detected (NotDetected); Chlamydophila Pneumoniae, PCR Not Detected (NotDetected); Coronavirus 19, PCR Not Detected (NotDetected); Coronovirus HKU1,PCR Not Detected (NotDetected); Influenza A, PCR Not Detected (NotDetected); Influenza AH1, 2009 Not Detected (NotDetected); Influenza AH1, PCR Not Detected (NotDetected); Influenza AH3,PCR Not Detected (NotDetected); Influenza B, PCR Not Detected (NotDetected); Mycoplasma Pneumoniae, PCR Not Detected (NotDetected); Parainfluenza 1, PCR Not Detected (NotDetected); Parainfluenza 2, PCR Not Detected (NotDetected); Parainfluenza 3, PCR Not Detected (NotDetected); Parainfluenza 4, PCR Not Detected (NotDetected)
[2025-10-23 21:56] LABS: Potassium 6.4 mmoL/L (3.5-5.1)
[2025-10-23 21:58] LABS: Blood Urea Nitrogen 82 mg/dl (7-17); Creatinine,Serum 10.90 mg/dl (0.52-1.04)
[2025-10-23 21:59] LABS: VBG HCO3 16.1 mmol/L (23-30); VBG PCO2 32.1 mmol/L (35-51); VBG PH 7.32 mmol/L (7.31-7.41); VBG PO2 56.6 mmol/L (28-40)
[2025-10-23 22:00] LABS: NT Pro Brain Natriuretic Pep. 99.5 pg/mL (0-125)
[2025-10-23 22:05] LABS: Lactate Venous 3.8 mmol/L (0.4-2.0)
[2025-10-23 22:06] LABS: Troponin I < 0.01 ng/ml (0.00-0.034)
[2025-10-23 22:14] LABS: Albumin Level 3.9 g/dl (3.5-5.0); Albumin/Globulin Ratio 1.0 (1.1-1.8); Globulin 4.1 g/dL (1.3-3.2)
[2025-10-23] MEDS: CALCIUM GLUC IN NACL, ISO-OSM 1 GM/50 ML BAG IV (22:35)
[2025-10-23] MEDS: DEXTROSE 50% 50ML SYRINGE (CRASH CART) 50 ML IVP (22:36)
[2025-10-23] MEDS: LACTATED RINGERS 1000ML 2,040 ML 1020 ML IV (22:36)
[2025-10-23] MEDS: INSULIN HUMAN REGULAR 100 UNITS/ML 10ML VIAL 10 UNIT IVP (22:37)
[2025-10-23 22:52] LABS: Phosphorous 7.0 mg/dl (2.5-4.5)
[2025-10-23] MEDS: CEFEPIME HCL 2 GM in 0.9 % SODIUM CHLORIDE 100 ML IV (23:00)
--- NOTE | 2025-10-23 23:01 | PC.NURSE ---
this RN placed meplix on buttocks while in room inserting barros
[2025-10-23 23:02] LABS: Microscopic, Urine URINE MICROSCOPIC (MICROSCOPIC)
[2025-10-23 23:06] LABS: Bilirubin,Urine Negative (Negative); Color,Urine YELLOW (Yellow); Glucose,Urine (UA) Negative (Negative); Ketones,Urine Negative (Negative); Leukocyte Esterase,Urine 3+ (Negative); PH,Urine 7.0 (5.0-8.5); Protein,Urine 2+ (Negative); Specific Gravity, Urine 1.015 (1.005-1.030); Urobilinogen,Urine 0.2 EU/dl (0.2)
[2025-10-23 23:12] LABS: WBC,Urine TNTC #/hpf (0-3)
[2025-10-23 23:13] LABS: Bacteria,Urine 3+ /lpf
--- NOTE | 2025-10-23 23:18 | PC.NURSE ---
Called [facility] for possible pt xfer, said they would call back and more than likely be put on a waitlist
--- NOTE | 2025-10-23 23:18 | PC.NURSE ---
1200ml emptied from barros
--- NOTE | 2025-10-23 23:39 | PC.NURSE ---
called [facility] for possible pt xfer to the [place] [facility] [place] said they would call back
[2025-10-24 00:53] LABS: Anion Gap 17.6 mEq/L (5-15); Blood Urea Nitrogen 78 mg/dl (7-17); Calcium 9.6 mg/dl (8.4-10.2); Carbon Dioxide 17 mmol/L (22.0-30.0); Chloride 106 mmol/L (98-107); Creatinine Clearance Estimated 7 mL/min (50-200); Estimated Glomerular Filt Rate 5 ml/min (>60); GFR (African American) 6 ML/MIN (>60); Glucose 154 mg/dl (74-100); Potassium 5.6 mmoL/L (3.5-5.1); Sodium 135 mmol/L (136-145)
[2025-10-24 02:56] LABS: Reflex Lactic Add Lactic Reflex
[2025-10-24 03:15] LABS: Creatinine,Serum 8.80 mg/dl (0.52-1.04); Troponin I < 0.01 ng/ml (0.00-0.034)
[2025-10-24 03:34] VITALS: BP 123/69; PULSE 99; RESP 16; TEMP 36.6; O2SAT 100
[2025-10-24] MEDS: 0.9 % SODIUM CHLORIDE 1000ML 1,000 ML 75 ML IV (03:40)
[2025-10-24] MEDS: SODIUM BICARBONATE 150 MEQ in DEXTROSE 5 % IN WATER 1,000 ML 100 MEQ IV (03:41)
== END 2025-10-24 03:23 | disposition short-term general hospital (02) ==
PROVIDERS: Physician Assistant; Emergency Provider Emergency Medicine; PCP Physician Assistant
DX: N13.39 Other hydronephrosis (principal); N13.4 Hydroureter; N17.9 Acute kidney failure, unspecified; E87.5 Hyperkalemia; R74.02 Elevation of levels of lactic acid dehydrogenase [LDH]; N39.0 Urinary tract infection, site not specified; R33.9 Retention of urine, unspecified; E83.39 Other disorders of phosphorus metabolism; K52.9 Noninfective gastroenteritis and colitis, unspecified; R41.0 Disorientation, unspecified; R53.1 Weakness; E87.1 Hypo-osmolality and hyponatremia
CPT/HCPCS: 0223U; 51702; 70450; 71045; 71250; 72125; 72128; 72131; 72170; 74176; 80048; 80053; 81001; 82803; 83605; 83690; 83735; 83880; 84100; 84484; 85025; 85610; 85730; 87040; 87077; 87086; 93005; 96365; 96366; 96367; 96375; 99285; 99291; J0612; J0692; J7030; J7070; J7120